=== PATIENT | male | born 1945 | race Caucasian/White ===

== ENCOUNTER → 2016-07-01 | Outpatient (CLI) | payer MEDICARE, MEDICAID ==
[2016-07-01 12:59] LABS: ANION GAP 13 (5-19); BLOOD UREA NITROGEN 24 mg/dL (7-20); CALCIUM 9.2 mg/dL (8.4-10.2); CARBON DIOXIDE 31 mmol/L (22-30); CHLORIDE 99 mmol/L (98-107); CREATININE RESULT 1.19 mg/dL (0.52-1.25); GLUCOSE 103 mg/dL (75-110); POTASSIUM 4.3 mmol/L (3.6-5.0); SODIUM 143.2 mmol/L (137-145)
== END ==
LOC: OD 11:36
PROVIDERS: ATTEND Internal Medicine Cardiovascular Disease
DX: I10 Essential (primary) hypertension (principal)
CPT/HCPCS: 36415; 80048; 84443

== ENCOUNTER 2016-08-09 21:22 | Inpatient (IN) | payer MEDICARE, MEDICAID ==
[2016-08-09] MEDS ORDERED: ASPIRIN 81 MG TABLET, CHEWABLE PO ONE (21:35)
[2016-08-09 21:49] LABS: ABSOLUTE EOSINOPHILS # (AUTO) 0.2 10^3/uL (0.0-0.6); ABSOLUTE LYMPHOCYTES (AUTO) 1.9 10^3/uL (0.5-4.7); ABSOLUTE MONOCYTES (AUTO) 0.9 10^3/uL (0.1-1.4); ABSOLUTE NEUT (AUTO) 4.7 10^3/uL (1.7-8.2); BASOPHILS % (AUTO) 0.6 % (0-2); EOSINOPHILS % (AUTO) 3.1 % (0-6); HEMATOCRIT 47.6 % (37.9-51.0); HEMOGLOBIN 15.6 g/dL (13.5-17.0); HGB HCT DIFFERENCE -0.8; LYMPHOCYTES % (AUTO) 24.3 % (13-45); MEAN CORPUSCULAR HEMOGLOBIN 30.5 pg (27.0-33.4); MEAN CORPUSCULAR HGB CONC 32.8 g/dL (32.0-36.0); MEAN CORPUSCULAR VOLUME 93 fl (80-97); MONOCYTES % (AUTO) 11.2 % (3-13); RED BLOOD COUNT 5.12 10^6/uL (4.35-5.55); RED CELL DISTRIBUTION WIDTH 15.2 % (11.5-14.0); SEGMENTED NEUTROPHILS % (AUTO) 60.8 % (42-78); WHITE BLOOD COUNT 7.7 10^3/uL (4.0-10.5)
[2016-08-09 22:02] LABS: ALANINE AMINOTRANSFERASE 18 U/L (21-72); ALBUMIN 3.9 g/dL (3.5-5.0); ALKALINE PHOSPHATASE 88 U/L (38-126); ANION GAP 11 (5-19); ASPARTATE AMINO TRANSFERASE 23 U/L (17-59); BLOOD UREA NITROGEN 22 mg/dL (7-20); CALCIUM 9.1 mg/dL (8.4-10.2); CARBON DIOXIDE 32 mmol/L (22-30); CHLORIDE 99 mmol/L (98-107); CREATINE KINASE 70 U/L (55-170); CREATININE RESULT 1.55 mg/dL (0.52-1.25); GLUCOSE 104 mg/dL (75-110); POTASSIUM 4.5 mmol/L (3.6-5.0); SODIUM 141.7 mmol/L (137-145); TOTAL PROTEIN 7.9 g/dL (6.3-8.2)
[2016-08-09 22:14] LABS: CREATINE KINASE MB 1.77 ng/mL (<4.55)
[2016-08-09 22:31] LABS: TROPONIN I 0.046 ng/mL
[2016-08-09] MEDS ORDERED: NORMAL SALINE 1000 ML 1,000 ML IV ONE (22:32)
--- NOTE | 2016-08-09 22:33 | ER Document Report ---
ED General - General Mode of Arrival: Medic Information source: Patient TRAVEL OUTSIDE OF THE [place] IN LAST 30 DAYS: No - HPI Onset: Other - see narrative Onset/Duration: Persistent Quality of pain: Achy Severity: None Associated symptoms: Other - see narrative Recently seen / treated by doctor: Yes <MARICHUY BROWN - Last Filed: 08/09/16 23:02> <RONALD SHAY - Last Filed: 08/10/16 06:26> - General Stated Complaint: LIGHT HEADED POSSIBLE Notes: Patient is a 70-year-old male that presents to the emergency department today with complaints of vomiting and abdominal pain with associated lightheadedness. Patient states that he was watching television when his symptoms began. Patient also adds that he has back pain secondary to a fall a few days ago. Patient states he is unsure if he hit his head during the fall but he now has a slight headache. Patient states he was recently started on antibiotics for a cough. Patient denies any diarrhea or fever. Patient is a poor historian so history is limited. (MARICHUY BROWN) - Related Data Allergies/Adverse Reactions: ibuprofen Adverse Reaction (Verified 03/19/15 20:28) Home Medications: Current Home Medications Amlodipine Besylate 5 mg PO DAILY 08/10/16 [History] Aspirin 81 mg PO DAILY 08/10/16 [History] Cefdinir 300 mg PO BID 08/10/16 [History] Furosemide [Lasix] 40 mg PO DAILY 08/10/16 [History] Isosorbide Mononitrate [Imdur 60 mg Tablet.er] 60 mg PO DAILY 08/10/16 [History] Lisinopril 20 mg PO DAILY 08/10/16 [History] Ondansetron [Zuplenz] 4 mg PO ASDIR PRN 08/10/16 [History] Ranolazine [Ranexa 500 mg Tab.sr] 500 mg PO BID 08/10/16 [History] Past Medical History - General Information source: Patient, [facility] Records - Social History Smoking Status: Former Smoker Cigarette use (# per day): No Frequency of alcohol use: None Drug Abuse: None Lives with: Family Family History: Reviewed & Not Pertinent - Past Medical History Cardiac Medical History: Reports: Hx Congestive Heart Failure, Hx Coronary Artery Disease, Hx Heart Attack, Hx Hypertension, Hx Pulmonary Embolism Pulmonary Medical History: Reports: Hx COPD Endocrine Medical History: Reports: Hx Diabetes Mellitus Type 2 Past Surgical History: Reports: Hx Cardiac Catheterization, Hx Cardiac Surgery - Pacemaker-removed due to infection, Hx Pacemaker - States he does not have a pacemaker but does have an AICD, Hx Tonsillectomy - Immunizations Hx Diphtheria, Pertussis, Tetanus Vaccination: No - >5 YRS Hx Pneumococcal Vaccination: 03/27/11 <MARICHUY BROWN - Last Filed: 08/09/16 23:02> Review of Systems - Review of Systems Constitutional: denies: Fever EENT: No symptoms reported Cardiovascular: See HPI, Lightheaded Respiratory: See HPI, Cough Gastrointestinal: See HPI, Abdominal pain, Vomiting. denies: Diarrhea Genitourinary: No symptoms reported Male Genitourinary: No symptoms reported Musculoskeletal: See HPI, Back pain Skin: No symptoms reported Hematologic/Lymphatic: No symptoms reported Neurological/Psychological: See HPI, Headaches -: Yes All other systems reviewed and negative <MARICHUY BROWN - Last Filed: 08/09/16 23:02> Physical Exam <MARICHUY BROWN - Last Filed: 08/09/16 23:02> <RONALD SHAY - Last Filed: 08/10/16 06:26> - Vital signs Vitals: Temp 97.8 F 08/09/16 21:26 - Notes Notes: Physical Exam: General: Alert, appears well. HEENT: Normocephalic. Atraumatic. PERRL. Extraocular movements intact. Oropharynx clear. Dry mucous membranes. Difficulty hearing at baseline. Neck: Supple. Non-tender. Respiratory: No respiratory distress. Wheezing bilaterally. Rales at the right base. Cardiovascular: Regular rate and rhythm. Abdominal: Obese. Non-tender. No distension. Normal Bowel Sounds. Back: Non-tender. No deformity or step off. Extremities: Moves all four extremities. Upper extremities: Normal inspection. Non-tender.Normal ROM. Lower extremities: Normal inspection. Non-tender. No edema. Normal ROM. Neurological: Normal cognition. AAOx4. Normal speech. Psychological: Normal affect. Normal Mood. Skin: Warm. Dry. Normal color. (MARICHUY BROWN) Course - Laboratory Result Diagrams: 08/09/16 21:32 08/09/16 21:32 <MARICHUY BROWN - Last Filed: 08/09/16 23:02> - Laboratory Result Diagrams: 08/10/16 05:48 08/09/16 21:32 - Diagnostic Test Radiology reviewed: Reports reviewed <RONALD SHAY - Last Filed: 08/10/16 06:26> - Re-evaluation Re-evalutation: 08/10/16 Patient is orthostatic. Patient with COPD exacerbation and hypoxia. Patient has a history of PE in cannot remember if he is on blood thinners. No acute findings on imaging associated with trauma. Patient will have VQ scan due to his renal insufficiency to look for pulmonary embolus. It is very likely that he has one and I'm not sure why he is not on blood thinners at this time unless he the fall risk. Discussed with hospitalist service in stable at time of admission. Of note, V/Q positive for PE. Patient will be started on blood thinners by the hospitalist service (RONALD SHAY) - Vital Signs Vital signs: Temp Pulse Resp BP Pulse Ox 97.7 F 56 L 16 119/76 97 08/10/16 05:03 08/10/16 05:03 08/10/16 05:03 08/10/16 05:03 08/10/16 05:03 - Laboratory Laboratory results interpreted by me: 08/09/16 08/09/16 21:32 21:32 RDW 15.2 H Carbon Dioxide 32 H BUN 22 H Creatinine 1.55 H Est GFR ( Amer) 54 L Est GFR (Non-Af Amer) 44 L ALT 18 L (MARICHUY BROWN) (RONALD SHAY) Critical Care Note - Critical Care Note Total time excluding time spent on procedures (mins): 35 - evaluation and management of hypoxia, multiple re-evaluations, coordination of admission <RONALD SHAY - Last Filed: 08/10/16 06:26> Discharge <MARICHUY BROWN - Last Filed: 08/09/16 23:02> - Discharge Admitting Provider: Hospitalist Unit Admitted: IMCU <RONALD SHAY - Last Filed: 08/10/16 06:26> - Discharge Clinical Impression: COPD exacerbation, Orthostatic hypotension, Atrial flutter by electrocardiogram Vomiting Qualifiers: Vomiting type: unspecified Vomiting Intractability: non-intractable Nausea presence: with nausea Qualified Code(s): R11.2 - Nausea with vomiting, unspecified Condition: Stable Disposition: ADMITTED INPATIENT Scribe Attestation: 08/10/16 06:25 I personally performed the services described in the documentation, reviewed and edited the documentation which was dictated to the scribe in my presence, and it accurately records my words and actions. (RONALD SHAY) Scribe Documentation - Scribe Written by Brendae:: Ge Willard, [id number] 08/10/16 acting as scribe for :: Silvina <MARICHUY BROWN - Last Filed: 08/09/16 23:02>
[2016-08-09] MEDS ORDERED: IPRATROPIUM/ALBUTEROL 0.5-2.5 MG/3 ML AMPUL NEB ONE (23:42)
[2016-08-09] MEDS ORDERED: ONDANSETRON HCL INJ/PF 4 MG/2 ML SDV IV ONE (23:43)
[2016-08-10] MEDS ORDERED: METHYLPREDNISOLONE INJ 125 MG/2 ML SDV IV ONE (00:14)
[2016-08-10] MEDS ORDERED: ACETAMINOPHEN 325 MG TABLET PO PRN (02:11)
[2016-08-10] MEDS ORDERED: IPRATROPIUM/ALBUTEROL 0.5-2.5 MG/3 ML AMPUL NEB PRN (02:11)
[2016-08-10] MEDS ORDERED: NORMAL SALINE 1000 ML 1,000 ML IV PRN ×2 (02:11→09:27)
--- NOTE | 2016-08-10 02:33 | PDOC H&P ---
History of Present Illness Admission Date/PCP: 08/10/16 00:46 MD [facility]. Patient complains of: n/v, lightheaded History of Present Illness: DANIEL OLIVA is a 70 year old morbidly obese male with underlying COPD, coronary artery disease, status post myocardial infarction 2, status post pacemaker implant with subsequent removal for infection, followed by AICD implant, arthritis, chronic pain, combined systolic and diastolic congestive heart failure by 2010 echocardiogram, and history of pulmonary embolism, having been taken off his anticoagulant approximate 1 month ago, as best I can determine, who presents to the emergency room for evaluation of above complaints. Of note, patient is a Rather rambling poor historian at times. He's had questionable chills but no fever per se. 2 episodes of nausea and vomiting. No diarrhea or dysuria, chest or abdominal pain. He's had a day or so of lightheadedness. States he's having some mild back discomfort secondary to a fall several days ago. Uncertain if he struck his head, but has been having an occasional slight headache recently. Was started on Cefdinir twice a day several days ago for cough, but has only been taking this once a day.. 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 Recent nuclear medicine stress test; results are pending. Patient has been discussed with emergency room physician who evaluated the patient. Laboratory results are listed in [facility] and are reviewed. X-ray summary results are listed below, with full report(s) reviewed. . EKG reviewed. And compared to a tracing from November 29 of last year. Social history/personal habits: . One son. Lives with son. On disability due to a number of health problems, including heart problems. Occasional beer. No tobacco or illicit drug use. Allergies/adverse reactions are listed in [employer] and are reviewed. Home medications are reviewed by bottle review and discussion with patient and are to be reconciled by nursing staff in [facility]. Home medications initially autopopulated into [facility] may not accurately reflect patient's true medications, dosages, and/or frequencies. REVIEW OF SYSTEMS: Constitutional: See history and present illness. Eyes: Wears glasses. ENT: No swallowing problems or complaints. Partial hearing loss. Pulmonary: See history and present illness. Cardiovascular: No current complaints, including chest pain. Gastrointestinal: See history and present illness. Skin: No current complaints, including rashes. Hematologic: No unusual easy bruising or bleeding. Neurologic: No current complaints, including numbness or tingling. Musculoskeletal: Joint pain from arthritis. See history and present illness. Psychiatric: No current complaints, including anxiety or depression. Endocrine: No current complaints, including polyuria. Genitourinary: No current complaints, including dysuria. PHYSICAL EXAMINATION: Neither height nor weight are recorded on the chart. Temperature 97.8. Blood pressure 126/79. Pulse 59 and regular. Respirations are 16 and unlabored. 100 % saturation on 2 L oxygen per nasal cannula. Morbidly obese otherwise well-developed male appearing perhaps a bit younger than his stated age. Pleasant awake alert and cooperative. Somewhat anxious, although no ayan agitation. Skin is warm and dry. No grossly obvious evidence of rash in areas of skin examined. No subcutaneous nodules palpated. ENT: Mildly hard of hearing to normal conversation. Tongue midline on protrusion pink and slightly moist. Eyes: No scleral icterus. Pupils equal and reactive to light at 4 mm. [place] conjunctivae. No raccoon eyes. Neck is supple and nontender to gentle active range of motion and palpation. Midline trachea. No palpable thyroid nodule mass enlargement or tenderness. Lymphatic: No palpable cervical or clavicular nodes. Neck and lymphatic exams limited by patient body habitus. Psychiatric: Fair to reasonable insight into acute and chronic medical issues. Oriented to time location and why here. As noted above, somewhat of a poor historian times. Lungs: Auscultation reveals clear and equal breath sounds bilaterally. No use of accessory respiratory muscles. Cardiovascular: Heart regular rate and rhythm, without gallop murmur or rub. No carotid or abdominal aortic bruits. No ankle or pedal edema. Faintly palpable dorsalis pedis pulses. Abdomen: soft, obese, nontender with positive bowel sounds. Unable to adequately evaluate abdomen for masses or organomegaly due to body habitus. Extremities: Feet are warm and dry. No calf tenderness to compression. No grossly obvious visual evidence of calf swelling. Gentle manipulation of lower extremities fails to reveal any obvious evidence of injury or instability to knees hips or ankles. Neurologic: Moves upper extremities grossly normally. Patellar reflexes absent. Absent Babinski. Light touch is intact at feet. Dorsiflexion and plantarflexion of feet 5 / 5 and symmetric. Past Medical History Cardiac Medical History: Reports: Congestive Heart Failure, Coronary Artery Disease, Myocardial Infarction, Hypertension, Pulmonary Embolism Denies: Hyperlipidema Pulmonary Medical History: Reports: Chronic Obstructive Pulmonary Disease (COPD) Denies: Sleep Apnea EENT Medical History: Reports: Eyes - Glasses, Ears - Partial hearing loss Denies: Throat Neurological Medical History: Denies: Hemorrhagic CVA, Ischemic CVA, Seizures Endocrine Medical History: Reports: Diabetes Mellitus Type 2 - History of same, but only on medication for short time. Denies: Diabetes Mellitus Type 1, Hyperthyroidism, Hypothyroidism Renal/ Medical History: Reports: None GI Medical History: Denies: Cirrhosis, Gastroesophageal Reflux Disease, Hepatitis, Peptic Ulcer Disease Musculoskeltal Medical History: Reports: Arthritis Skin Medical History: Reports: None Denies: Eczema, Psoriasis Psychiatric Medical History: Denies: Alcohol Dependency, Depression, General Anxiety Disorder, Substance Abuse, Tobacco Dependency Hematology: Reports: None Infectious Medical History: Denies: Hepatitis B, Hepatitis C Past Surgical History Past Surgical History: Reports: Cardiac Catheterization, Pacemaker - Initial device removed for infection; subsequent AICD implant., Tonsillectomy Social History Information Source: Patient, Emergency Med Personnel, [facility] Records Lives with: Family Smoking Status: Former Smoker Frequency of Alcohol Use: Occasional Hx Recreational Drug Use: No Hx Prescription Drug Abuse: No - Advance Directive Resuscitation Status: Full Code Surrogate healthcare decision maker:: Son Family History Family History: Reviewed & Not Pertinent Parental Family History Reviewed: Yes Children Family History Reviewed: Yes Sibling(s) Family History Reviewed.: Yes Medication/Allergy Home Medications: RX: Aspirin [Ecotrin 81 mg EC Tablet] 81 mg PO DAILY 08/10/16 RX: Furosemide [Lasix] 40 mg PO QAM 08/10/16 RX: Isosorbide Mononitrate [Imdur 60 mg Tablet.er] 60 mg PO DAILY 08/10/16 RX: Lisinopril 20 mg PO DAILY 08/10/16 RX: Ondansetron HCl [Zofran 4 mg Tablet] 4 mg PO Q6HP PRN 08/10/16 RX: Ranolazine [Ranexa] 500 mg PO BID 08/10/16 RX: Morphine Sulfate [Morphine Ir 30 mg Tablet] 60 mg PO Q6HP PRN 08/11/16 RX: Apixaban [Eliquis 5 mg Tablet] 5 mg PO BID #60 tablet 08/12/16 RX: Docusate Sodium [Colace 100 mg Capsule] 100 mg PO BID #60 capsule 08/12/16 Allergies/Adverse Reactions: ibuprofen Adverse Reaction (Verified 08/10/16 10:17) Physical Exam Vital Signs: Temp Pulse Resp BP Pulse Ox 97.8 F 11 L 126/74 H 96 08/09/16 21:26 08/10/16 00:11 08/10/16 00:31 08/10/16 00:31 Results Impressions: Chest X-Ray 08/09/16 21:35 IMPRESSION: HEART ENLARGED WITHOUT FAILURE. CHRONIC INTERSTITIAL CHANGES. NO DEFINITE ACUTE FINDINGS. Chest CT 08/09/16 22:33 IMPRESSION: RIGHT PLEURAL EFFUSION. SIMILAR TO THE PRIOR STUDY. CARDIOMEGALY. NO ACUTE FINDINGS. Head CT 08/09/16 22:33 IMPRESSION: CHRONIC CHANGES OF ATROPHY AND MICROVASCULAR ISCHEMIA. NO ACUTE PROCESS. Assessment & Plan - Diagnosis (1) ARF (acute renal failure) Qualifiers: Acute renal failure type: unspecified Qualified Code(s): N17.9 - Acute kidney failure, unspecified Is this a current diagnosis for this admission?: YesPlan: Likely prerenal, due to nausea and vomiting. Judicious IV fluids, with history of combined systolic and diastolic heart failure. Follow-up chemistry.. (2) Anticoagulated Is this a current diagnosis for this admission?: YesPlan: Poor historian. However, states that his new blocklayer approximately one month ago stopped his anticoagulation, as best I can determine from discussion with patient. Patient does not remember the name of his new blocklayer. (3) Cough Is this a current diagnosis for this admission?: YesPlan: Follow clinically at this time. Suspicion for COPD exacerbation is low. (4) Fall Qualifiers: Encounter type: initial encounter Qualified Code(s): W19.XXXA - Unspecified fall, initial encounter Is this a current diagnosis for this admission?: YesPlan: Physical therapy consult. Orthostatic vital signs every 4 hours while awake. I have strongly encouraged patient not to get out of bed without notifying staff , to avoid a fall with injury. Knee high SCDs for DVT prophylaxis, along with subcutaneous heparin. Impression and plans were discussed with patient, who concurs. Time spent in evaluation and management of patient: 65 minutes. (5) Lightheaded Is this a current diagnosis for this admission?: Yes (6) Nausea & vomiting Qualifiers: Vomiting type: unspecified Vomiting Intractability: non-intractable Qualified Code(s): R11.2 - Nausea with vomiting, unspecified Is this a current diagnosis for this admission?: YesPlan: Likely viral etiology. Clear liquid diet at present. Follow clinically. (7) Orthostatic hypotension Is this a current diagnosis for this admission?: Yes (8) AICD present, double chamber Is this a current diagnosis for this admission?: Yes (9) Combined systolic and diastolic cardiac dysfunction Is this a current diagnosis for this admission?: YesPlan: Clinically stable at present time.Resume home medications as appropriate once these have been reviewed. (10) History of pulmonary embolism Is this a current diagnosis for this admission?: YesPlan: With orthostatic hypotension, lightheadedness, personal history of pulmonary embolism, and with systemic anticoagulation having recently been discontinued, ventilation perfusion lung scan has been ordered.
[2016-08-10] MEDS ORDERED: METHYLPREDNISOLONE INJ 125 MG/2 ML SDV ONE (03:26)
[2016-08-10 04:12] LABS: ADD ON TESTING BLD IN LAB ACKNOWLEDGE
[2016-08-10 04:28] LABS: MAGNESIUM 1.9 mg/dL (1.6-2.3)
[2016-08-10] MEDS ORDERED: INFLUENZA ADLT QUAD (36MOS+) 2016-17 VAC 0.5 ML SYR IM PRN (05:28)
[2016-08-10] MEDS ORDERED: HEPARIN SODIUM,PORCINE/D5W 250 ML IV PRN (05:48)
[2016-08-10] MEDS ORDERED: HEPARIN SOD (PORCINE) 1,000 UNIT/ML 10 ML VIAL IV ONE (05:48)
[2016-08-10] MEDS ORDERED: HEPARIN SOD (PORCINE) 1,000 UNIT/ML 10 ML VIAL IV PRN (05:48)
[2016-08-10] MEDS ORDERED: HEPARIN SOD (PORCINE) 5,000 UNIT/ML 1 ML SYRINGE SUBCUT SCH (06:00)
[2016-08-10 06:12] LABS: ABSOLUTE BASOPHILS # (AUTO) 0.1 10^3/uL (0.0-0.2); ABSOLUTE EOSINOPHILS # (AUTO) 0.1 10^3/uL (0.0-0.6); ABSOLUTE LYMPHOCYTES (AUTO) 0.7 10^3/uL (0.5-4.7); ABSOLUTE MONOCYTES (AUTO) 0.2 10^3/uL (0.1-1.4); ABSOLUTE NEUT (AUTO) 5.6 10^3/uL (1.7-8.2); BASOPHILS % (AUTO) 0.8 % (0-2); EOSINOPHILS % (AUTO) 1.2 % (0-6); HEMATOCRIT 46.1 % (37.9-51.0); HEMOGLOBIN 15.1 g/dL (13.5-17.0); HGB HCT DIFFERENCE -0.8; LYMPHOCYTES % (AUTO) 10.8 % (13-45); MEAN CORPUSCULAR HEMOGLOBIN 30.6 pg (27.0-33.4); MEAN CORPUSCULAR HGB CONC 32.7 g/dL (32.0-36.0); MEAN CORPUSCULAR VOLUME 94 fl (80-97); MONOCYTES % (AUTO) 3.6 % (3-13); RED BLOOD COUNT 4.93 10^6/uL (4.35-5.55); RED CELL DISTRIBUTION WIDTH 15.3 % (11.5-14.0); SEGMENTED NEUTROPHILS % (AUTO) 83.6 % (42-78); WHITE BLOOD COUNT 6.7 10^3/uL (4.0-10.5)
[2016-08-10] MEDS ORDERED: HEPARIN SOD (PORCINE) 1,000 UNIT/ML 10 ML VIAL ONE (06:15)
[2016-08-10 06:27] LABS: ANION GAP 9 (5-19); BLOOD UREA NITROGEN 25 mg/dL (7-20); CALCIUM 8.7 mg/dL (8.4-10.2); CARBON DIOXIDE 28 mmol/L (22-30); CHLORIDE 102 mmol/L (98-107); CREATININE RESULT 1.45 mg/dL (0.52-1.25); GLUCOSE 147 mg/dL (75-110); POTASSIUM 4.7 mmol/L (3.6-5.0); SODIUM 139.3 mmol/L (137-145)
[2016-08-10] MEDS ORDERED: HEPARIN SODIUM,PORCINE/D5W 25,000 UNIT/250 ML RTUINJ IV ONE ×2 (06:33→20:23)
[2016-08-10] MEDS: DOCUSATE SODIUM 100 MG CAPSULE PO SCH ×2 (09:18→17:42)
[2016-08-10 09:33] LABS: APPEARANCE,URINE SLIGHTLY-CLOUDY; BILIRUBIN,URINE NEGATIVE (NEGATIVE); GLUCOSE, URINE NEGATIVE (NEGATIVE); KETONES,URINE NEGATIVE (NEGATIVE); LEUKOCYTE ESTERASE,URINE NEGATIVE (NEGATIVE); NITRITE,URINE NEGATIVE (NEGATIVE); PROTEIN,URINE 100 mg/dL (NEGATIVE); URINE SPECIFIC GRAVITY 1.018; UROBILINOGEN,URINE NEGATIVE mg/dL (<2.0)
--- NOTE | 2016-08-10 10:14 | Progress Note ---
Provider Note Provider Note: 08/10/2016: High probability ventilation perfusion lung scan. Discussed with interpreting radiologist. Will proceed with systemic anticoagulation, heparin drip in this morbidly obese individual. Systemic anticoagulation recommended to patient. Patient understands the risks of systemic anti-coagulation to include but not be limited to internal bleeding , which can take the form of GI tract and/or intracranial hemorrhage, the latter of which can result in or stroke with permanent paralysis. Patient has no absolute contraindication to systemic anticoagulation. No bleeding problems when previously on systemic anticoagulation. Above discussed in lay person's terms. Patient agrees to undergo systemic anticoagulation.
--- NOTE | 2016-08-10 23:48 | EKG REPORT ---
SEVERITY:- ABNORMAL ECG - ATRIAL FLUTTER, A-RATE 230 VENTRICULAR PREMATURE COMPLEX NONSPECIFIC IVCD WITH LAD ANTERIOR INFARCT, OLD : Confirmed by: Farzana Still 10-Aug-2016 23:48:01
[2016-08-11 04:11] LABS: HEMATOCRIT 42.2 % (37.9-51.0); HEMOGLOBIN 13.9 g/dL (13.5-17.0); HGB HCT DIFFERENCE -0.5; MEAN CORPUSCULAR HEMOGLOBIN 30.7 pg (27.0-33.4); MEAN CORPUSCULAR HGB CONC 32.8 g/dL (32.0-36.0); MEAN CORPUSCULAR VOLUME 93 fl (80-97); RED BLOOD COUNT 4.52 10^6/uL (4.35-5.55); RED CELL DISTRIBUTION WIDTH 15.3 % (11.5-14.0); WHITE BLOOD COUNT 8.3 10^3/uL (4.0-10.5)
[2016-08-11] MEDS: DOCUSATE SODIUM 100 MG CAPSULE PO SCH ×2 (09:57→18:22)
[2016-08-11] MEDS ORDERED: AMLODIPINE BESYLATE 5 MG TABLET PO SCH (10:00)
[2016-08-11] MEDS ORDERED: ASPIRIN 81 MG TABLET, CHEWABLE PO SCH (10:00)
[2016-08-11] MEDS ORDERED: CLOPIDOGREL BISULFATE 75 MG TABLET PO ONE (10:15)
[2016-08-11] MEDS ORDERED: INSULIN REG, HUMAN 100 UNIT/ML 3 ML VIAL (PYX) SUBCUT PRN (12:28)
[2016-08-11] MEDS ORDERED: GLUCAGON,HUMAN RECOMB 1 MG INJ IM PRN (12:28)
[2016-08-11] MEDS ORDERED: DEXTROSE 50%-WATER SYRINGE 12.5 GM/25 ML DOSE IV PRN (12:28)
[2016-08-11] MEDS ORDERED: DEXTROSE 40% GEL 15 GM TUBE X 2 PO PRN (12:28)
[2016-08-11] MEDS ORDERED: DEXTROSE 50%-WATER SYRINGE 25 GM/50 ML DOSE IV PRN (12:28)
[2016-08-11] MEDS ORDERED: DEXTROSE 40% GEL 15 GM TUBE PO PRN (12:28)
[2016-08-11] MEDS ORDERED: APIXABAN 5 MG TABLET PO ONE (12:45)
--- NOTE | 2016-08-11 13:12 | PDOC PROGRESS REPORT ---
Subjective Progress Note for:: 08/11/16 Subjective:: The patient denies any chest pain, paroxysmal nocturnal dyspnea, nor orthopnea. Patient was admitted for nausea and vomiting but eventually this resolved by itself. Urine culture still turning out to be negative. KUB shows no obstruction. Patient was admitted because of high probability VQ scan and started on heparin drip. CT scan showed no pulmonary embolism. Patient however diastolic EKG showed atrial flutter. No dizziness or lightheadedness. Patient reports chronic respiratory failure, given oxygen in [place] and for some reason it was discontinued here. Reported episode of bradycardia and 30's last night. Physical Exam Vital Signs: Temp Pulse Resp BP Pulse Ox 97.7 F 80 14 130/67 H 95 08/11/16 07:08 08/11/16 08:47 08/11/16 08:47 08/11/16 07:08 08/11/16 08:47 Intake & Output 08/10/16 08/11/16 08/12/16 06:59 06:59 06:59 Intake Total 225 5432 Output Total 700 Balance 225 4732 Weight 136 kg 139.7 kg General appearance: PRESENT: no acute distress, cooperative, morbidly obese Head exam: PRESENT: normocephalic Eye exam: PRESENT: EOMI Mouth exam: PRESENT: moist, neck supple Neck exam: ABSENT: JVD Respiratory exam: PRESENT: decreased breath sounds. ABSENT: rhonchi, wheezes Cardiovascular exam: PRESENT: RRR, other - campus monitor, a flutter with controlled rate. ABSENT: gallop GI/Abdominal exam: PRESENT: distended - Obese, hypoactive bowel sounds, soft. ABSENT: tenderness Extremities exam: PRESENT: +1 edema Neurological exam: PRESENT: alert, awake, oriented to situation Skin exam: PRESENT: dry, warm. ABSENT: cyanosis Results Laboratory Results: 08/11/16 03:35 08/10/16 05:48 08/11/16 03:35 WBC 8.3 RBC 4.52 Hgb 13.9 Hct 42.2 MCV 93 MCH 30.7 MCHC 32.8 RDW 15.3 H Plt Count 169 Impressions: Chest X-Ray 08/09/16 21:35 IMPRESSION: HEART ENLARGED WITHOUT FAILURE. CHRONIC INTERSTITIAL CHANGES. NO DEFINITE ACUTE FINDINGS. Chest CT 08/09/16 22:33 IMPRESSION: RIGHT PLEURAL EFFUSION. SIMILAR TO THE PRIOR STUDY. CARDIOMEGALY. NO ACUTE FINDINGS. Head CT 08/09/16 22:33 IMPRESSION: CHRONIC CHANGES OF ATROPHY AND MICROVASCULAR ISCHEMIA. NO ACUTE PROCESS. Chest/Abdomen CTA 08/10/16 00:00 IMPRESSION: 1. No PE. 2. Cardiomegaly. Chronic small right pleural effusion. KUB X-Ray 08/10/16 00:00 IMPRESSION: NO RADIOGRAPHIC EVIDENCE FOR ACUTE ABDOMINAL DISEASE. Lung Scan-VQ NM 08/10/16 00:19 IMPRESSION: High probability for pulmonary emboli. Further evaluation with dedicated CT angiogram chest recommended. Assessment & Plan - Diagnosis (1) Abnormal perfusion scan of lung Is this a current diagnosis for this admission?: Yes (2) Atrial flutter by electrocardiogram Is this a current diagnosis for this admission?: Yes (3) ARF (acute renal failure) Qualifiers: Acute renal failure type: unspecified Qualified Code(s): N17.9 - Acute kidney failure, unspecified Is this a current diagnosis for this admission?: Yes (4) Pleural effusion Is this a current diagnosis for this admission?: Yes (5) Cardiomyopathy Qualifiers: Cardiomyopathy type: ischemic Qualified Code(s): I25.5 - Ischemic cardiomyopathy Is this a current diagnosis for this admission?: Yes (6) COPD (chronic obstructive pulmonary disease) Qualifiers: COPD type: unspecified COPD Qualified Code(s): J44.9 - Chronic obstructive pulmonary disease, unspecified Is this a current diagnosis for this admission?: Yes (7) Obesity hypoventilation syndrome Is this a current diagnosis for this admission?: Yes (8) Diabetes mellitus Qualifiers: Diabetes mellitus type: type 2 Diabetes mellitus complication status: with unspecified complications Diabetes mellitus keno terminal operator insulin use: without keno terminal operator use Qualified Code(s): E11.8 - Type 2 diabetes mellitus with unspecified complications Is this a current diagnosis for this admission?: Yes (9) Hypertension Qualifiers: Hypertension type: essential hypertension Qualified Code(s): I10 - Essential (primary) hypertension Is this a current diagnosis for this admission?: Yes (10) History of pulmonary embolism Is this a current diagnosis for this admission?: Yes - Time Time Spent with patient: 25-34 minutes - Plan Summary Plan Summary: We will continue gentle hydration. Recheck creatinine in the morning. We will discontinue the patient's heparin drip. I will put the patient on eliquis for the atrial flutter. This was briefly discussed with cardiology, Dr. Henao. In the meantime I will put the patient on sliding scale insulin. We will obtain room air oxygenation on ambulation and at rest and subsequently arrangements for home oxygen if needed. I will discontinue the Norvasc due to bradycardia. I will resume the patient's KELSEY inhibitor but half the dose. I would resume the Ranexa as well, and Imdur at half the dose. We will monitor blood pressure. If the patient continues to improve any stable, possibly can be discharged in the morning.
[2016-08-11] MEDS ORDERED: LISINOPRIL 10 MG TABLET PO ONE (15:00)
[2016-08-11] MEDS ORDERED: ISOSORBIDE MONONITRATE 60 MG TAB.ER.24H PO ONE (15:00)
[2016-08-11] MEDS ORDERED: MORPHINE SULFATE IR 30 MG TABLET PO PRN (16:56)
[2016-08-11] MEDS: RANOLAZINE 500 MG TAB.SR.12H PO SCH (18:19)
[2016-08-11] MEDS: APIXABAN 5 MG TABLET PO SCH (18:21)
[2016-08-12 03:27] LABS: APPEARANCE,URINE CLEAR; BILIRUBIN,URINE NEGATIVE (NEGATIVE); GLUCOSE, URINE NEGATIVE (NEGATIVE); KETONES,URINE NEGATIVE (NEGATIVE); LEUKOCYTE ESTERASE,URINE NEGATIVE (NEGATIVE); NITRITE,URINE NEGATIVE (NEGATIVE); PROTEIN,URINE NEGATIVE (NEGATIVE); URINE SPECIFIC GRAVITY 1.004; UROBILINOGEN,URINE NEGATIVE mg/dL (<2.0)
[2016-08-12 05:37] LABS: ANION GAP 7 (5-19); BLOOD UREA NITROGEN 29 mg/dL (7-20); CALCIUM 8.5 mg/dL (8.4-10.2); CARBON DIOXIDE 29 mmol/L (22-30); CHLORIDE 101 mmol/L (98-107); CREATININE RESULT 1.26 mg/dL (0.52-1.25); GLUCOSE 84 mg/dL (75-110); SODIUM 137.1 mmol/L (137-145)
[2016-08-12] MEDS: APIXABAN 5 MG TABLET PO SCH (09:07)
[2016-08-12] MEDS ORDERED: MORPHINE SULFATE IR 30 MG TABLET PO PRN (09:16)
[2016-08-12] MEDS: DOCUSATE SODIUM 100 MG CAPSULE PO SCH (09:18)
[2016-08-12 09:21] VITALS: BP 145/74
[2016-08-12] MEDS: RANOLAZINE 500 MG TAB.SR.12H PO SCH (09:21)
[2016-08-12] MEDS ORDERED: ISOSORBIDE MONONITRATE 60 MG TAB.ER.24H PO SCH (10:00)
[2016-08-12] MEDS ORDERED: CLOPIDOGREL BISULFATE 75 MG TABLET PO SCH (10:00)
[2016-08-12] MEDS ORDERED: (PENDING PHARMACY ID) (Lisinopril [Lisinopril] 10 MG) PO SCH (10:00)
[2016-08-12] MEDS ORDERED: LISINOPRIL 10 MG TABLET PO SCH (10:00)
--- NOTE | 2016-08-13 20:21 | PDOC DISCHARGE SUMMARY ---
General - Admit/Disc Date/PCP Admission Date/Primary Care Provider: 08/10/16 02:11 RANJITH TALAVERA MD Discharge Date: 08/12/16 - Discharge Diagnosis (1) ARF (acute renal failure) Is this a current diagnosis for this admission?: Yes (2) Acute on chronic combined systolic and diastolic heart failure Is this a current diagnosis for this admission?: Yes (3) Bradycardia Is this a current diagnosis for this admission?: Yes (4) CAD (coronary artery disease) Is this a current diagnosis for this admission?: Yes (5) Atrial flutter by electrocardiogram Is this a current diagnosis for this admission?: Yes (6) COPD (chronic obstructive pulmonary disease) Is this a current diagnosis for this admission?: Yes (7) Diabetes mellitus Is this a current diagnosis for this admission?: Yes (8) Obesity hypoventilation syndrome Is this a current diagnosis for this admission?: Yes (9) AICD present, double chamber Is this a current diagnosis for this admission?: Yes (10) History of pulmonary embolism Is this a current diagnosis for this admission?: Yes (11) Morbid obesity with BMI of 40.0-44.9, adult Is this a current diagnosis for this admission?: Yes - Additional Information Resuscitation Status: Full Code Discharge Diet: Cardiac, Diabetic Discharge Activity: Activity As Tolerated, Walk Frequently, Weigh Daily Home Medications: Aspirin [Ecotrin 81 mg EC Tablet] 81 mg PO DAILY 08/10/16 Furosemide [Lasix] 40 mg PO QAM 08/10/16 Isosorbide Mononitrate [Imdur 60 mg Tablet.er] 60 mg PO DAILY 08/10/16 Lisinopril 20 mg PO DAILY 08/10/16 Ondansetron HCl [Zofran 4 mg Tablet] 4 mg PO Q6HP PRN 08/10/16 Ranolazine [Ranexa] 500 mg PO BID 08/10/16 Morphine Sulfate [Morphine Ir 30 mg Tablet] 60 mg PO Q6HP PRN 08/11/16 Apixaban [Eliquis 5 mg Tablet] 5 mg PO BID #60 tablet 08/12/16 Docusate Sodium [Colace 100 mg Capsule] 100 mg PO BID #60 capsule 08/12/16 History of Present Illness History of Present Illness: see H&P for full history of present illness Hospital Course Hospital Course: Patient was initially admitted for nausea vomiting which was secondary to some mild acute renal failure which quickly resolved with hydration. Patient was also found to have an abnormal VQ scan which was a cause for admission and subsequent CT of the chest which was negative for pulmonary embolus patient was admitted and placed on heparin drip which was quickly stopped. Patient was transitioned to Eliquis as patient has history of a flutter/fib. Patient does have an AICD pacemaker in place. Patient was suffering from some chronic respiratory failure and had reported that he previously been prescribed oxygen in [place] but it had not been continued here. Patient was qualified for home oxygen and this was given to patient and he was discharged in stable condition. Physical Exam Vital Signs: Temp Pulse Resp BP Pulse Ox 97.9 F 114 H 18 145/74 H 95 08/12/16 07:48 08/12/16 07:48 08/12/16 07:48 08/12/16 07:48 08/12/16 07:48 Intake & Output 08/11/16 08/12/16 08/13/16 06:59 06:59 06:59 Intake Total 5432 4204 Output Total 700 1800 Balance 4732 2404 Weight 139.7 kg 139.7 kg Exam: General: Awake alert and oriented x3, no acute respiratory distress HEENT: AT/NC, PERRL, EOMI, oropharynx is moist, pink, no scleral icterus, no conjunctival injection Neck: No JVD, trachea midline Chest: Clear to auscultation bilaterally, no wheezes rhonchi or rales CV: normal S1 and S2 Abdomen: Soft, nontender to palpation, nondistended, active bowel sounds; no rebound, rigidity, or guarding Extremities: No cyanosis; 1+edema Neuro: Cranial nerves II through XII are grossly intact without focal deficits; awake alert and oriented x3 Psych: Normal mood and affect Results Laboratory Results: 08/11/16 03:35 08/12/16 04:20 08/12/16 08/12/16 03:00 04:20 Sodium 137.1 Potassium 5.0 Chloride 101 Carbon Dioxide 29 Anion Gap 7 BUN 29 H Creatinine 1.26 H Est GFR ( Amer) > 60 Est GFR (Non-Af Amer) 56 L Glucose 84 Calcium 8.5 Urine Color STRAW Urine Appearance CLEAR Urine pH 6.0 Ur Specific [place] 1.004 Urine Protein NEGATIVE Urine Glucose (UA) NEGATIVE Urine Ketones NEGATIVE Urine Blood NEGATIVE Urine Nitrite NEGATIVE Ur Leukocyte Esterase NEGATIVE Urine WBC (Auto) 1 08/10/16 09:00 Clean Catch Midstream Urine Culture - Final NO GROWTH 2 DAYS Impressions: Chest X-Ray 08/09/16 21:35 IMPRESSION: HEART ENLARGED WITHOUT FAILURE. CHRONIC INTERSTITIAL CHANGES. NO DEFINITE ACUTE FINDINGS. Chest CT 08/09/16 22:33 IMPRESSION: RIGHT PLEURAL EFFUSION. SIMILAR TO THE PRIOR STUDY. CARDIOMEGALY. NO ACUTE FINDINGS. Head CT 08/09/16 22:33 IMPRESSION: CHRONIC CHANGES OF ATROPHY AND MICROVASCULAR ISCHEMIA. NO ACUTE PROCESS. Chest/Abdomen CTA 08/10/16 00:00 IMPRESSION: 1. No PE. 2. Cardiomegaly. Chronic small right pleural effusion. KUB X-Ray 08/10/16 00:00 IMPRESSION: NO RADIOGRAPHIC EVIDENCE FOR ACUTE ABDOMINAL DISEASE. Lung Scan-VQ NM 08/10/16 00:19 IMPRESSION: High probability for pulmonary emboli. Further evaluation with dedicated CT angiogram chest recommended. Qualifiers PATEINT BEING DISCHARGED WITH ANY OF THE FOLLOWING DIAGNOSIS?: No Plan Time Spent: Greater than 30 Minutes
== END 2016-08-12 14:28 | disposition home or self-care (01) | DRG 682 ==
LOC: ER 21:22 → UNDOADMOB 08-10 00:46 → INTOOBSV 08-10 00:46 → EH 08-10 00:46 → OBSVTOIN 08-10 02:11 → EH 08-10 02:11 → 3N 08-10 04:13
PROVIDERS: ADMIT Family Medicine; ATTEND Family Medicine
PROC: 3E0234Z Introduction of Serum, Toxoid and Vaccine into Muscle, Percutaneous Approach (ICD-10-PCS; principal; 2016-08-12)
DX: N17.9 Acute kidney failure, unspecified (principal); I50.43 Acute on chronic combined systolic (congestive) and diastolic (congestive) heart failure; I48.92 Unspecified atrial flutter; Z68.41 Body mass index [BMI] 40.0-44.9, adult; E66.2 Morbid (severe) obesity with alveolar hypoventilation; J96.10 Chronic respiratory failure, unspecified whether with hypoxia or hypercapnia; I95.1 Orthostatic hypotension; I25.10 Atherosclerotic heart disease of native coronary artery without angina pectoris; J44.9 Chronic obstructive pulmonary disease, unspecified; I10 Essential (primary) hypertension; E11.9 Type 2 diabetes mellitus without complications; I25.2 Old myocardial infarction; Z23 Encounter for immunization; Z87.891 Personal history of nicotine dependence; Z86.711 Personal history of pulmonary embolism; Z95.810 Presence of automatic (implantable) cardiac defibrillator
CPT/HCPCS: 36415; 70450; 71010; 71250; 71275; 74000; 78582; 80048; 80053; 81001; 82550; 82553; 82962; 83735; 84484; 85025; 85027; 85610; 85730; 87086; 90686; 93005; 93010; 94640; 94799; 96361; 96374; 99291; A9540; A9567; G8978-GP; G8979-GP; J1644; J1815; J2405; J2930; J3490; J7030; J7620; Q9969

== ENCOUNTER → 2016-08-26 | Outpatient (CLI) | payer MEDICARE, MEDICAID | LOC: OD 14:32 | PROVIDERS: ATTEND Family Medicine | DX: M54.5 Low back pain (principal); M51.34 Other intervertebral disc degeneration, thoracic region | CPT/HCPCS: 72070 ==

== ENCOUNTER 2016-10-09 20:41 | Emergency (ER) | payer MEDICARE, MEDICAID ==
--- NOTE | 2016-10-10 00:25 | ER Document Report ---
ED Neck/Back Problem - General Chief Complaint: Back Pain Stated Complaint: BACK PAIN Mode of Arrival: Ambulatory Information source: Patient TRAVEL OUTSIDE OF THE [place] IN LAST 30 DAYS: No - HPI Patient complains to provider of: Pain Notes: Patient's here with complaints of right posterior chest wall pain. The patient states approximately 2 weeks ago he was walking to see his doctor when he fell and hit his upper back on the ground. He's had pain in the right posterior rib area since this occurred. The pain is worse when he takes a deep breath, coughs N, moves. He denies any blood thinners. He denies any hemoptysis. He denies any difficulty breathing or shortness of breath aside from his normal shortness of breath due to his COPD. He is on home oxygen at this point. He denies any bowel or bladder dysfunction. No abdominal pain. No unilateral numbness tingling or weakness. He has no other complaints at this time. - Related Data Allergies/Adverse Reactions: No Known Allergies Allergy (Unverified 10/09/16 20:47) Past Medical History - Social History Smoking Status: Unknown if Ever Smoked Family History: Reviewed & Not Pertinent Patient has suicidal ideation: No Patient has homicidal ideation: No - Past Medical History Cardiac Medical History: Reports: Hx Congestive Heart Failure, Hx Coronary Artery Disease, Hx Heart Attack, Hx Hypertension, Hx Pulmonary Embolism Denies: Hx Hypercholesterolemia Pulmonary Medical History: Reports: Hx COPD Denies: Hx Sleep Apnea Neurological Medical History: Denies: Hx Seizures Endocrine Medical History: Reports: Hx Diabetes Mellitus Type 2 - History of same, but only on medication for short time.. Denies: Hx Diabetes Mellitus Type 1, Hx Hyperthyroidism, Hx Hypothyroidism Renal/ Medical History: Denies: Hx Peritoneal Dialysis GI Medical History: Denies: Hx Cirrhosis, Hx Gastroesophageal Reflux Disease, Hx Hepatitis Musculoskeltal Medical History: Reports Hx Arthritis Skin Medical History: Denies Hx Eczema, Denies Hx Psoriasis Psychiatric Medical History: Denies: Hx Depression Infectious Medical History: Denies: Hx Hepatitis Past Surgical History: Reports: Hx Cardiac Catheterization, Hx Cardiac Surgery - Pacemaker-removed due to infection, Hx Pacemaker - Initial device removed for infection; subsequent AICD implant., Hx Tonsillectomy - Immunizations Hx Diphtheria, Pertussis, Tetanus Vaccination: No - >5 YRS Hx Pneumococcal Vaccination: 03/27/11 Review of Systems - Review of Systems -: Yes All other systems reviewed and negative Physical Exam - Vital signs Vitals: Temp Pulse Resp BP Pulse Ox 97.5 F 56 L 20 131/60 H 90 L 10/09/16 20:47 10/09/16 20:47 10/09/16 20:47 10/09/16 20:47 10/09/16 20:47 - Notes Notes: GENERAL: alert, cooperative, nontoxic, no distress. HEAD: normocephalic, atraumatic EYES: conjunctiva pink without discharge, no external redness or swelling. EARS: no external swelling, no external redness NOSE: atraumatic, no external swelling MOUTH/THROAT: mucous membranes moist and pink, posterior pharynx without erythema, swelling, exudate. No trismus or drooling. NECK: soft, supple, full range of motion, no meningismus. CHEST: no distress, scattered wheezes throughout. Good air movement. Right posterior chest wall tenderness to palpation. No ecchymosis. No rash. No crepitus. CARDIAC: regular rate and rhythm, no murmur, normal capillary refill, normal pulses. No peripheral edema noted. ABDOMEN: Soft, nontender. BACK: full range of motion, no CVA tenderness. No midline tenderness to step- off or crepitus to palpation of the cervical, thoracic, lumbar spine. EXTREMITIES: full range of motion of all extremities. No redness, no swelling. NEURO: alert and oriented 3, no focal deficits, full range of motion of all extremities. PYSCH: appropriate mood, affect. Patient is cooperative. SKIN: pink, warm, dry, no rash. Course - Re-evaluation Re-evalutation: 10/10/16 01:20 Patient's nontoxic with stable vitals. The patient has had right posterior chest wall pain since falling 2 weeks ago. He has a benign exam. His vital signs are stable. X-ray shows no fracture or pneumothorax. Patient looks well and can be discharged home. He is already on morphine for chronic pain. Just prior to discharge the patient asked for a prescription for antibiotics for a possible dental infection. He states that he had had some swelling to the right side of his face a few days ago and took a few of his son's antibiotics which improve this, but he is concerned he still has a dental infection. On exam he started have poor dental hygiene in general, no drainable abscess noted , no facial swelling. I will prescribe a course of Pen-Vee K for potential partially treated dental infection. The patient is noted to have elevated blood pressure during today's emergency department visit. The patient was informed of this finding. The patient was instructed that this may be related to pre-hypertension and requires further evaluation with a primary care provider. The patient has no hypertensive symptoms at this time. The patient's emergency department workup and current diagnosis were explained to the patient and or family. Follow-up instructions were provided. Medications if prescribed were discussed. Instructions for when to return to the emergency department including specific worrisome symptoms were discussed with the patient and/or family. - Vital Signs Vital signs: Temp Pulse Resp BP Pulse Ox 98.0 F 60 20 123/59 L 95 10/10/16 01:13 10/10/16 01:13 10/10/16 01:13 10/10/16 01:13 10/10/16 01:13 Discharge - Discharge Clinical Impression: Pain, dental Chest wall contusion Qualifiers: Encounter type: initial encounter Laterality: right Qualified Code(s): S20.211A - Contusion of right front wall of thorax, initial encounter Condition: Stable Disposition: HOME, SELF-CARE Instructions: Toothache ([facility]), Chest Wall Pain ([facility]) Additional Instructions: Take medications as prescribed. Take her normal pain medication as needed. Follow-up with her family doctor at the next available appointment, sooner for increased pain, fever, difficulty breathing, coughing up blood, abdominal pain, or any further concerns. Your blood pressure was elevated during today's visit. Have this rechecked with your doctor. Prescriptions: Penicillin V Potassium [Penicillin Vk 500 mg Tablet] 500 mg PO QID #28 tablet Forms: Elevated Blood Pressure
[2016-10-10 01:15] VITALS: BP 123/59
== END 2016-10-10 01:30 | disposition home or self-care (01) ==
LOC: ER 20:41
DX: S20.211A Contusion of right front wall of thorax, initial encounter (principal); M54.9 Dorsalgia, unspecified; R07.89 Other chest pain; K08.89 Other specified disorders of teeth and supporting structures; X58.XXXA Exposure to other specified factors, initial encounter
CPT/HCPCS: 99283

== ENCOUNTER 2016-10-16 02:38 | Emergency (ER) | payer MEDICARE, MEDICAID ==
[2016-10-16] MEDS ORDERED: NAPROXEN 250 MG TABLET PO ONE (03:11)
[2016-10-16] MEDS ORDERED: LIDOCAINE 5% (700 MG) TRANSDERMAL ADH..PATCH TP ONE (03:11)
--- NOTE | 2016-10-16 03:12 | ER Document Report ---
ED Neck/Back Problem - General Chief Complaint: Dizziness Stated Complaint: BACK PAIN Notes: The patient is a 70-year-old male, past medical history COPD, chronic arthritis , presents with 3 weeks of right mid back pain that occurred after he tripped and fell on his way to his primary care physician office. Since then, he has had the back pain. He takes morphine for his knee, but he still says the pain is present. Earlier tonight, he was twisting his body on the bed, felt severe pain and passed out briefly. TRAVEL OUTSIDE OF THE [place] IN LAST 30 DAYS: No - Related Data Allergies/Adverse Reactions: No Known Allergies Allergy (Unverified 10/09/16 20:47) Past Medical History - General Information source: Patient - Social History Smoking Status: Current Every Day Smoker Family History: Reviewed & Not Pertinent - Past Medical History Cardiac Medical History: Reports: Hx Congestive Heart Failure, Hx Coronary Artery Disease, Hx Heart Attack, Hx Hypertension, Hx Pulmonary Embolism Denies: Hx Hypercholesterolemia Pulmonary Medical History: Reports: Hx COPD Denies: Hx Sleep Apnea Neurological Medical History: Denies: Hx Seizures Endocrine Medical History: Reports: Hx Diabetes Mellitus Type 2 - History of same, but only on medication for short time.. Denies: Hx Diabetes Mellitus Type 1, Hx Hyperthyroidism, Hx Hypothyroidism Renal/ Medical History: Denies: Hx Peritoneal Dialysis GI Medical History: Denies: Hx Cirrhosis, Hx Gastroesophageal Reflux Disease, Hx Hepatitis Musculoskeltal Medical History: Reports Hx Arthritis Skin Medical History: Denies Hx Eczema, Denies Hx Psoriasis Psychiatric Medical History: Denies: Hx Depression Infectious Medical History: Denies: Hx Hepatitis Past Surgical History: Reports: Hx Cardiac Catheterization, Hx Cardiac Surgery - Pacemaker-removed due to infection, Hx Pacemaker - Initial device removed for infection; subsequent AICD implant., Hx Tonsillectomy - Immunizations Hx Diphtheria, Pertussis, Tetanus Vaccination: No - >5 YRS Hx Pneumococcal Vaccination: 03/27/11 Review of Systems - Review of Systems Notes: REVIEW OF SYSTEMS: CONSTITUTIONAL: -fevers, -chills EENT: -eye pain, -difficulty swallowing, -nasal congestion CARDIOVASCULAR: -chest pain, +syncope. RESPIRATORY: -cough, -SOB GASTROINTESTINAL: -abdominal pain, - nausea, -vomiting, -diarrhea GENITOURINARY: -dysuria, -hematuria MUSCULOSKELETAL: +back pain, -neck pain SKIN: -rash or skin lesions. HEMATOLOGIC: -easy bruising or bleeding. LYMPHATIC: -swollen, enlarged glands. NEUROLOGICAL: -altered mental status or loss of consciousness, -headache, - neurologic symptoms PSYCHIATRIC: -anxiety, -depression. ALL OTHER SYSTEMS REVIEWED AND NEGATIVE. Physical Exam - Vital signs Vitals: Temp Pulse Resp BP Pulse Ox 97.8 F 55 L 18 123/55 L 94 10/16/16 02:38 10/16/16 02:38 10/16/16 02:38 10/16/16 02:38 10/16/16 02:38 - Notes Notes: PHYSICAL EXAMINATION: GENERAL: Well-appearing, well-nourished and in no acute distress. HEAD: Atraumatic, normocephalic. EYES: Pupils equal round and reactive to light, extraocular movements intact, sclera anicteric, conjunctiva are normal. ENT: nares patent, oropharynx clear without exudates. Moist mucous membranes. NECK: Normal range of motion, supple without lymphadenopathy LUNGS: Breath sounds clear to auscultation bilaterally and equal. No wheezes rales or rhonchi. HEART: Regular rate and rhythm without murmurs ABDOMEN: Soft, nontender, normoactive bowel sounds. No guarding, no rebound. No masses appreciated. EXTREMITIES: Normal range of motion, no pitting or edema. No cyanosis. Strong distal pulses. BACK: tenderness over right lateral subscapular area NEUROLOGICAL: Cranial nerves grossly intact. Normal speech, normal gait. Normal sensory, motor, and reflex exams. PSYCH: Normal mood, normal affect. SKIN: Warm, Dry, normal turgor, no rashes or lesions noted. Course - Re-evaluation Re-evalutation: Patient's labs are unremarkable. EKG is similar to prior EKGs. Bedside ultrasound does not show a AAA or free fluid. Patient's brief syncopal episode most likely from the pain and spasming when he moved. He is tender in a discrete area below the right shoulder blade and the tenderness is reproducible. Patient is already on morphine from his primary care physician. Will add anti-inflammatories and Lidoderm patch with follow-up at his primary care physician. - Vital Signs Vital signs: Temp Pulse Resp BP Pulse Ox 97.5 F 53 L 20 127/70 H 93 10/16/16 05:00 10/16/16 05:00 10/16/16 05:00 10/16/16 05:00 10/16/16 05:00 - Laboratory Result Diagrams: 10/16/16 03:30 10/16/16 03:30 Laboratory results interpreted by me: 10/16/16 10/16/16 03:30 03:30 RDW 15.9 H BUN 25 H Creatinine 1.47 H Est GFR ( Amer) 57 L Est GFR (Non-Af Amer) 47 L ALT 16 L Discharge - Discharge Clinical Impression: Back pain Qualifiers: Back pain location: thoracic back pain Chronicity: chronic Back pain laterality : right Qualified Code(s): M54.6 - Pain in thoracic spine Condition: Stable Disposition: HOME, SELF-CARE Additional Instructions: Take Naprosyn every 12 hours and use the Lidoderm patches to help with her back pain. You must follow-up with her primary care physician to have the symptoms rechecked. LOW BACK PAIN: Three out of every four people will have an episode of disabling back pain during their lifetime. Most commonly the pain is due to straining of the muscles and ligaments in the low back. Usual treatment includes: (1) Rest on a firm surface. Avoid lying on your stomach. (2) Ice pack the painful area. After a few days, gentle heat may be used intermittently to relax the area, or ice packs can be continued. (3) Medication may be needed -- muscle relaxers and antiinflammatory medicines are commonly used. (4) As the back improves, exercises are prescribed to strengthen the back and abdominal muscles. Your doctor will advise you on the proper care for your back at each stage in your recovery. You may be better in a few days -- or healing may take several weeks. If new symptoms of a "herniated disc" (radiation of pain, numbness, or tingling down the back of the leg or weakness in the leg) occur, you should be re-examined. Further testing may be necessary. WARM PACKS: After approximately two days, apply gentle heat (such as a heating pad or hot water bottle) for about 20 to 30 minutes about every two hours -- at least four times daily. Warmth and elevation will help you make a more rapid recovery , and will ease the pain considerably. Do not use HOT heat, and never apply heat for longer than 30 minutes. The continuous heat can invisibly damage skin and muscles -- even when no burn is seen on the surface. Damaged muscles can make you MORE sore. FOLLOW-UP CARE: If you have been referred to a physician for follow-up care, call the physician s office for an appointment as you were instructed or within the next two days. If you experience worsening or a significant change in your symptoms, notify the physician immediately or return to the Emergency Department at any time for re-evaluation. Prescriptions: Lidocaine [Lidoderm 5% (700 mg) Transdermal Patch] 1 patch TP DAILY #10 adh..patch Naproxen [Naprosyn 250 mg Tablet] 500 mg PO Q12H PRN #30 tablet PRN Reason:
[2016-10-16 03:40] LABS: MEAN CORPUSCULAR VOLUME 94 fl (80-97)
[2016-10-16 03:50] LABS: ABSOLUTE EOSINOPHILS # (AUTO) 0.2 10^3/uL (0.0-0.6); ABSOLUTE LYMPHOCYTES (AUTO) 1.5 10^3/uL (0.5-4.7); ABSOLUTE MONOCYTES (AUTO) 0.6 10^3/uL (0.1-1.4); ABSOLUTE NEUT (AUTO) 2.6 10^3/uL (1.7-8.2); BASOPHILS % (AUTO) 0.5 % (0-2); EOSINOPHILS % (AUTO) 3.7 % (0-6); HEMATOCRIT 40.9 % (37.9-51.0); HEMOGLOBIN 13.6 g/dL (13.5-17.0); HGB HCT DIFFERENCE -0.1; LYMPHOCYTES % (AUTO) 30.2 % (13-45); MEAN CORPUSCULAR HEMOGLOBIN 31.2 pg (27.0-33.4); MEAN CORPUSCULAR HGB CONC 33.2 g/dL (32.0-36.0); MONOCYTES % (AUTO) 12.9 % (3-13); RED BLOOD COUNT 4.35 10^6/uL (4.35-5.55); RED CELL DISTRIBUTION WIDTH 15.9 % (11.5-14.0); SEGMENTED NEUTROPHILS % (AUTO) 52.7 % (42-78)
[2016-10-16 03:55] LABS: ALANINE AMINOTRANSFERASE 16 U/L (21-72); ALKALINE PHOSPHATASE 72 U/L (38-126); ANION GAP 13 (5-19); ASPARTATE AMINO TRANSFERASE 21 U/L (17-59); BILIRUBIN,DIRECT 0.4 mg/dL (0.0-0.4); BILIRUBIN,TOTAL 0.8 mg/dL (0.2-1.3); BLOOD UREA NITROGEN 25 mg/dL (7-20); CALCIUM 9.1 mg/dL (8.4-10.2); CARBON DIOXIDE 28 mmol/L (22-30); CHLORIDE 103 mmol/L (98-107); CREATINE KINASE 63 U/L (55-170); CREATININE RESULT 1.47 mg/dL (0.52-1.25); GLUCOSE 102 mg/dL (75-110); POTASSIUM 4.7 mmol/L (3.6-5.0); SODIUM 144.3 mmol/L (137-145); TOTAL PROTEIN 6.9 g/dL (6.3-8.2)
[2016-10-16] MEDS ORDERED: NAPROXEN 250 MG TABLET ONE (04:49)
[2016-10-16] MEDS ORDERED: LIDOCAINE 5% (700 MG) TRANSDERMAL ADH..PATCH ONE (04:49)
[2016-10-16 05:34] VITALS: BP 127/70
--- NOTE | 2016-10-17 16:48 | EKG REPORT ---
SEVERITY:- ABNORMAL ECG - A-FLUTTER W/ PREDOM 4:1 AV BLOCK, A-RATE 220 NONSPECIFIC IVCD WITH LAD INFERIOR INFARCT, AGE INDETERMINATE ANTERIOR INFARCT, OLD : Confirmed by: Barbara Ann MD 17-Oct-2016 16:47:20
== END 2016-10-16 06:00 | disposition home or self-care (01) ==
LOC: ER 02:38
DX: M54.6 Pain in thoracic spine (principal); R42 Dizziness and giddiness; M54.9 Dorsalgia, unspecified; J44.9 Chronic obstructive pulmonary disease, unspecified; W19.XXXA Unspecified fall, initial encounter; Z79.899 Other long term (current) drug therapy; F17.200 Nicotine dependence, unspecified, uncomplicated
CPT/HCPCS: 93005; 99284; 36415; 82550; 85025; 80053; 84484; 93010; A9270

== ENCOUNTER 2017-01-04 23:00 | Emergency (ER) | payer MEDICARE, MEDICAID ==
[2017-01-05 00:56] VITALS: BP 152/80
== END 2017-01-05 00:56 | disposition left against medical advice (07) ==
LOC: ER 23:00
DX: Z53.21 Procedure and treatment not carried out due to patient leaving prior to being seen by health care provider (principal)

== ENCOUNTER 2017-03-27 22:43 | Emergency (ER) | payer MEDICARE, MEDICAID ==
[2017-03-27 23:10] LABS: ABSOLUTE BASOPHILS # (AUTO) 0.1 10^3/uL (0.0-0.2); ABSOLUTE EOSINOPHILS # (AUTO) 0.3 10^3/uL (0.0-0.6); ABSOLUTE LYMPHOCYTES (AUTO) 1.6 10^3/uL (0.5-4.7); ABSOLUTE MONOCYTES (AUTO) 0.7 10^3/uL (0.1-1.4); ABSOLUTE NEUT (AUTO) 4.8 10^3/uL (1.7-8.2); BASOPHILS % (AUTO) 0.8 % (0-2); EOSINOPHILS % (AUTO) 3.8 % (0-6); HEMOGLOBIN 14.4 g/dL (13.5-17.0); HGB HCT DIFFERENCE 2.2; LYMPHOCYTES % (AUTO) 21.1 % (13-45); MEAN CORPUSCULAR HEMOGLOBIN 33.1 pg (27.0-33.4); MEAN CORPUSCULAR HGB CONC 35.1 g/dL (32.0-36.0); MEAN CORPUSCULAR VOLUME 94 fl (80-97); MONOCYTES % (AUTO) 9.8 % (3-13); RED BLOOD COUNT 4.35 10^6/uL (4.35-5.55); RED CELL DISTRIBUTION WIDTH 13.7 % (11.5-14.0); SEGMENTED NEUTROPHILS % (AUTO) 64.5 % (42-78); WHITE BLOOD COUNT 7.4 10^3/uL (4.0-10.5)
--- NOTE | 2017-03-27 23:31 | EKG REPORT ---
SEVERITY:- ABNORMAL ECG - ATRIAL FLUTTER, A-RATE 230 VENTRICULAR PREMATURE COMPLEX NONSPECIFIC IVCD WITH LAD INFERIOR INFARCT, OLD ANTERIOR INFARCT, OLD : Confirmed by: Farzana Still 27-Mar-2017 23:30:46
[2017-03-27 23:33] LABS: ALANINE AMINOTRANSFERASE 23 U/L (21-72); ALBUMIN 3.8 g/dL (3.5-5.0); ALKALINE PHOSPHATASE 85 U/L (38-126); ANION GAP 9 (5-19); ASPARTATE AMINO TRANSFERASE 20 U/L (17-59); BILIRUBIN,DIRECT 0.5 mg/dL (0.0-0.4); BILIRUBIN,TOTAL 1.1 mg/dL (0.2-1.3); BLOOD UREA NITROGEN 11 mg/dL (7-20); CALCIUM 9.4 mg/dL (8.4-10.2); CARBON DIOXIDE 27 mmol/L (22-30); CHLORIDE 103 mmol/L (98-107); CREATINE KINASE 74 U/L (55-170); CREATININE RESULT 1.26 mg/dL (0.52-1.25); GLUCOSE 112 mg/dL (75-110); POTASSIUM 3.8 mmol/L (3.6-5.0); SODIUM 138.9 mmol/L (137-145); TOTAL PROTEIN 6.7 g/dL (6.3-8.2)
[2017-03-27 23:43] LABS: CREATINE KINASE MB 1.42 ng/mL (<4.55); TROPONIN I 0.017 ng/mL
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
--- NOTE | 2017-03-28 01:18 | RADIOLOGY REPORT (SQ) ---
EXAM DESCRIPTION: CT HEAD WITHOUT COMPLETED DATE/TIME: 03/28/2017 12:45 am REASON FOR STUDY: Syncope or near syncope COMPARISON: CT brain 08/09/2016. TECHNIQUE: Axial images acquired through the brain without intravenous contrast. Images reviewed wi th bone, brain and subdural windows. Images stored on PACS. All CT scanners at this facility use dose modulation, iterative reconstruction, and/or weight based d osing when appropriate to reduce radiation dose to as low as reasonably achievable (ALARA). [facility]: Dose Right [facility]: CareDose [facility]: Dose Right [facility]: Teradose 4D [facility]: Smart Perdoo RADIATION DOSE: Up-to-date CT equipment and radiation dose reduction techniques were employed. CTDIv ol: 64.6 mGy. DLP: 1163 mGy-cm. mGy. LIMITATIONS: None. FINDINGS: VENTRICLES: Prominent. CEREBRUM: No mass effect. No hemorrhage. No midline shift. Areas of low density in the white matte r most likely due to chronic micro-vascular ischemic change. No evidence for acute territorial infar ction. CEREBELLUM: No hemorrhage. No alteration of density. No evidence for acute infarction. EXTRAAXIAL SPACES: Mild age-related involutional change. No fluid collections. ORBITS AND GLOBE: Symmetrical contour of the globes. CALVARIUM: No depressed fracture. PARANASAL SINUSES: Air-fluid levels in the bilateral maxillary sinuses, left more than right. SOFT TISSUES: No hematoma. IMPRESSION: No acute intracranial hemorrhage or acute territorial infarct. Chronic changes of atrop hy and microvascular ischemia. Bilateral maxillary sinus disease. EVIDENCE OF ACUTE STROKE: NO. TECHNICAL DOCUMENTATION: JOB ID: [id number] [facility] Quality ID # [id number]: Final reports with documentation of one or more dose reduction techniques (e.g., Au tomated exposure control, adjustment of the mA and/or kV according to patient size, use of iterative reconstruction technique) 2010 [employer]- All Rights Reserved
--- NOTE | 2017-03-28 01:39 | RADIOLOGY REPORT (SQ) ---
EXAM DESCRIPTION: KNEE LEFT 4 VIEW COMPLETED DATE/TIME: 03/28/2017 1:13 am REASON FOR STUDY: Fell and twisted left knee. COMPARISON: Left knee x-ray 12/04/2010, 09/30/2010. NUMBER OF VIEWS: Four views. TECHNIQUE: AP, lateral, and both oblique radiographic images acquired of the left knee. LIMITATIONS: None. FINDINGS: MINERALIZATION: Normal. BONES: Tricompartmental degenerative changes with joint space narrowing and osteophytosis, worse at t he medial compartment, increased in the interval . No evidence for acute fracture or dislocation. JOINT: Small joint effusion. SOFT TISSUES: No soft tissue swelling. No radio-opaque foreign body. Vascular calcifications are no karma. IMPRESSION: No radiographic evidence of acute fracture. Progression of degenerative changes. Small joint effusion. TECHNICAL DOCUMENTATION: JOB ID: [id number] [place]-[id number] 2010 [employer]- All Rights Reserved
--- NOTE | 2017-03-28 01:43 | RADIOLOGY REPORT (SQ) ---
EXAM DESCRIPTION: CHEST SINGLE VIEW COMPLETED DATE/TIME: 03/28/2017 12:31 am REASON FOR STUDY: syncope COMPARISON: Chest x-ray 11/30/2015. Rib series 10/10/2016. EXAM PARAMETERS: NUMBER OF VIEWS: One view. TECHNIQUE: Single frontal radiographic view of the chest acquired. RADIATION DOSE: NA LIMITATIONS: None. FINDINGS: LUNGS AND PLEURA: No consolidation, pneumothorax or pleural effusion. MEDIASTINUM AND HILAR STRUCTURES: No masses. Contour normal. HEART AND VASCULAR STRUCTURES: The heart remains mildly enlarged. No overt vascular congestion. BONES: Degenerative changes in the spine and at the bilateral shoulders. HARDWARE: None in the chest. IMPRESSION: Stable cardiomegaly. Otherwise, no acute radiographic finding in the chest. TECHNICAL DOCUMENTATION: JOB ID: [id number]
[2017-03-28] MEDS ORDERED: HYDROCODONE/ACETAMINOPHEN 5-325 MG 6 TAB/DSPK PO PRN (02:47)
[2017-03-28 04:05] VITALS: BP 134/81
== END 2017-03-28 04:05 | disposition home or self-care (01) ==
LOC: ER 22:43
DX: R55 Syncope and collapse (principal); I48.92 Unspecified atrial flutter; S83.92XA Sprain of unspecified site of left knee, initial encounter; W18.30XA Fall on same level, unspecified, initial encounter; R06.02 Shortness of breath; I50.9 Heart failure, unspecified; I25.10 Atherosclerotic heart disease of native coronary artery without angina pectoris; I11.0 Hypertensive heart disease with heart failure; J44.9 Chronic obstructive pulmonary disease, unspecified; E11.9 Type 2 diabetes mellitus without complications; Z86.711 Personal history of pulmonary embolism; Z95.810 Presence of automatic (implantable) cardiac defibrillator; I25.2 Old myocardial infarction
CPT/HCPCS: 93005; 99285; 36415; 82553; 80307; 82550; 85025; 80053; 84484; 71010; 73562; 70450; 93010; A9270

== ENCOUNTER 2017-05-31 18:03 | Emergency (ER) | payer MEDICARE, MEDICAID ==
[2017-05-31 18:45] VITALS: BP 131/65
--- NOTE | 2017-05-31 19:37 | ER Document Report ---
ED Medical Screen (RME) - General Chief Complaint: Upper Abdominal Pain Stated Complaint: UPPER ABDOMINAL PAIN Time Seen by Provider: 05/31/17 19:35 Mode of Arrival: Medic Information source: Patient Notes: Patient presents complaining of low back pain for the past 3 months that he states that he has chronically. Patient states that he developed left-sided lower chest pain this evening. Patient states that he has had heart attacks in the past and this does not feel the same. Patient states that he called EMS tonight because whenever he got up to go the bathroom he got dizzy and lightheaded and fell. Patient denies any loss of consciousness. Patient does state he recently finished antibiotics to treat recent upper respiratory infection. Patient does state he took aspirin at home prior to arrival. hx: PA, hypertension, COPD TRAVEL OUTSIDE OF THE [place] IN LAST 30 DAYS: No - Related Data Allergies/Adverse Reactions: No Known Allergies Allergy (Verified 05/31/17 18:14) Past Medical History - Past Medical History Cardiac Medical History: Reports: Hx Congestive Heart Failure, Hx Coronary Artery Disease, Hx Heart Attack, Hx Hypertension, Hx Pulmonary Embolism Pulmonary Medical History: Reports: Hx COPD Endocrine Medical History: Reports: Hx Diabetes Mellitus Type 2 - History of same, but only on medication for short time. Renal/ Medical History: Denies: Hx Peritoneal Dialysis Musculoskeltal Medical History: Reports Hx Arthritis Past Surgical History: Reports: Hx Cardiac Catheterization, Hx Cardiac Surgery - Pacemaker-removed due to infection, Hx Pacemaker - Initial device removed for infection; subsequent AICD implant., Hx Tonsillectomy - Immunizations Hx Diphtheria, Pertussis, Tetanus Vaccination: No - >5 YRS Physical Exam - Vital signs Vitals: Temp Pulse Resp BP Pulse Ox 97.7 F 67 20 131/65 H 96 05/31/17 18:42 05/31/17 18:42 05/31/17 18:42 05/31/17 18:42 05/31/17 18:42 - Cardiovascular Rhythm: Regular Heart sounds: S1 appreciated, S2 appreciated - Abdominal Inspection: Normal Tenderness: Nontender Course - Vital Signs Vital signs: Temp Pulse Resp BP Pulse Ox 97.7 F 67 20 131/65 H 96 05/31/17 18:42 05/31/17 18:42 05/31/17 18:42 05/31/17 18:42 05/31/17 18:42
[2017-05-31 20:07] LABS: APPEARANCE,URINE SLIGHTLY-CLOUDY; BILIRUBIN,URINE SMALL (NEGATIVE); GLUCOSE, URINE NEGATIVE (NEGATIVE); KETONES,URINE NEGATIVE (NEGATIVE); LEUKOCYTE ESTERASE,URINE NEGATIVE (NEGATIVE); NITRITE,URINE NEGATIVE (NEGATIVE); PROTEIN,URINE 30 mg/dL (NEGATIVE); URINE SPECIFIC GRAVITY 1.024; UROBILINOGEN,URINE NEGATIVE mg/dL (<2.0)
[2017-05-31 20:26] LABS: ABSOLUTE BASOPHILS # (AUTO) 0.1 10^3/uL (0.0-0.2); ABSOLUTE EOSINOPHILS # (AUTO) 0.3 10^3/uL (0.0-0.6); ABSOLUTE LYMPHOCYTES (AUTO) 2.6 10^3/uL (0.5-4.7); ABSOLUTE NEUT (AUTO) 6.8 10^3/uL (1.7-8.2); BASOPHILS % (AUTO) 0.8 % (0-2); EOSINOPHILS % (AUTO) 2.4 % (0-6); HEMATOCRIT 42.5 % (37.9-51.0); HEMOGLOBIN 14.9 g/dL (13.5-17.0); HGB HCT DIFFERENCE 2.2; LYMPHOCYTES % (AUTO) 24.3 % (13-45); MEAN CORPUSCULAR HEMOGLOBIN 32.6 pg (27.0-33.4); MEAN CORPUSCULAR HGB CONC 35.1 g/dL (32.0-36.0); MEAN CORPUSCULAR VOLUME 93 fl (80-97); MONOCYTES % (AUTO) 9.4 % (3-13); RED BLOOD COUNT 4.57 10^6/uL (4.35-5.55); RED CELL DISTRIBUTION WIDTH 14.1 % (11.5-14.0); SEGMENTED NEUTROPHILS % (AUTO) 63.1 % (42-78); WHITE BLOOD COUNT 10.7 10^3/uL (4.0-10.5)
--- NOTE | 2017-05-31 20:39 | RADIOLOGY REPORT (SQ) ---
EXAM DESCRIPTION: CHEST PA/LAT COMPLETED DATE/TIME: 05/31/2017 8:23 pm REASON FOR STUDY: cp COMPARISON: None. EXAM PARAMETERS: NUMBER OF VIEWS: two views TECHNIQUE: Digital Frontal and Lateral radiographic views of the chest acquired. RADIATION DOSE: NA LIMITATIONS: none FINDINGS: LUNGS AND PLEURA: No opacities, masses or pneumothorax. No pleural effusion. I cannot exc lude a component of obstructive lung disease. MEDIASTINUM AND HILAR STRUCTURES: No masses or contour abnormalities. HEART AND VASCULAR STRUCTURES: Heart normal size. No evidence for failure. BONES: No acute findings. HARDWARE: None in the chest. OTHER: No other significant finding. IMPRESSION: No significant interval change. No acute findings. Other findings as noted above TECHNICAL DOCUMENTATION: JOB ID: [id number] [employer]- All Rights Reserved
[2017-05-31 20:46] LABS: ALANINE AMINOTRANSFERASE 19 U/L (21-72); ALBUMIN 3.5 g/dL (3.5-5.0); ALKALINE PHOSPHATASE 75 U/L (38-126); ANION GAP 9 (5-19); ASPARTATE AMINO TRANSFERASE 21 U/L (17-59); BILIRUBIN,DIRECT 0.3 mg/dL (0.0-0.4); BILIRUBIN,TOTAL 0.7 mg/dL (0.2-1.3); BLOOD UREA NITROGEN 12 mg/dL (7-20); CALCIUM 8.4 mg/dL (8.4-10.2); CARBON DIOXIDE 29 mmol/L (22-30); CHLORIDE 96 mmol/L (98-107); CREATINE KINASE 38 U/L (55-170); CREATININE RESULT 1.07 mg/dL (0.52-1.25); GLUCOSE 87 mg/dL (75-110); MAGNESIUM 1.8 mg/dL (1.6-2.3); POTASSIUM 4.3 mmol/L (3.6-5.0); TOTAL PROTEIN 6.2 g/dL (6.3-8.2)
[2017-05-31 20:57] LABS: CREATINE KINASE MB 1.3 ng/mL (<4.55); TROPONIN I 0.018 ng/mL
--- NOTE | 2017-05-31 21:37 | EKG REPORT ---
SEVERITY:- ABNORMAL ECG - A-FLUTTER MULTIPLE VENTRICULAR PREMATURE COMPLEXES NONSPECIFIC IVCD WITH LAD ANTERIOR INFARCT, OLD : Confirmed by: Farzana Still 31-May-2017 21:36:19
[2017-05-31] MEDS ORDERED: LIDOCAINE 5% (700 MG) TRANSDERMAL ADH..PATCH TP ONE (21:59)
--- NOTE | 2017-05-31 22:06 | ER Document Report ---
ED General - General Chief Complaint: Medication Refill Stated Complaint: i have pain all over Time Seen by Provider: 05/31/17 19:35 Mode of Arrival: Ambulatory Information source: Patient, Relative - son TRAVEL OUTSIDE OF THE [place] IN LAST 30 DAYS: No - HPI Onset: Other - chronic Severity: Severe Pain Level: 5 Context: I am in pain all over Notes: Patient states that he is discharged from his pain management doctor and he is here for pain medication. He states he has pain all over. He is supposed to be on morphine 30 mg every few hours. He states he saw his pain management doctor who did a urine drug screen on him and he was positive for something other than morphine and so he was discharged from the practice. He is already seen his primary medical doctor who is trying to refer him to another pain management doctor. - Related Data Allergies/Adverse Reactions: No Known Allergies Allergy (Verified 05/31/17 18:14) Past Medical History - General Information source: Patient - Social History Smoking Status: Former Smoker Family History: Reviewed & Not Pertinent Patient has suicidal ideation: No Patient has homicidal ideation: No - Past Medical History Cardiac Medical History: Reports: Hx Congestive Heart Failure, Hx Coronary Artery Disease, Hx Heart Attack, Hx Hypertension, Hx Pulmonary Embolism Pulmonary Medical History: Reports: Hx COPD Endocrine Medical History: Reports: Hx Diabetes Mellitus Type 2 - History of same, but only on medication for short time. Renal/ Medical History: Denies: Hx Peritoneal Dialysis Musculoskeltal Medical History: Reports Hx Arthritis Past Surgical History: Reports: Hx Cardiac Catheterization, Hx Cardiac Surgery - Pacemaker-removed due to infection, Hx Pacemaker - Initial device removed for infection; subsequent AICD implant., Hx Tonsillectomy - Immunizations Hx Diphtheria, Pertussis, Tetanus Vaccination: No - >5 YRS Hx Pneumococcal Vaccination: 03/27/11 Review of Systems - Review of Systems Constitutional: No symptoms reported EENT: No symptoms reported Cardiovascular: No symptoms reported Respiratory: No symptoms reported Gastrointestinal: No symptoms reported Genitourinary: No symptoms reported Musculoskeletal: Back pain, Joint pain, Muscle pain, Neck pain Skin: No symptoms reported Hematologic/Lymphatic: No symptoms reported Neurological/Psychological: No symptoms reported Physical Exam - Vital signs Vitals: Temp Pulse Resp BP Pulse Ox 97.7 F 67 20 131/65 H 96 05/31/17 18:42 05/31/17 18:42 05/31/17 18:42 05/31/17 18:42 05/31/17 18:42 - Notes Notes: PHYSICAL EXAMINATION: GENERAL: Chronically ill-appearing well-nourished. He up on [facility] in no apparent distress HEAD: Atraumatic, normocephalic. EYES: Pupils equal round and reactive to light, extraocular movements intact, sclera anicteric, conjunctiva are normal. ENT: Nares patent, oropharynx clear without exudates. Moist mucous membranes. NECK: Normal range of motion, supple without lymphadenopathy LUNGS: Breath sounds clear to auscultation bilaterally and equal. No wheezes rales or rhonchi. HEART: Irregular rhythm ABDOMEN: obese, nontender, nondistended abdomen. No guarding, no rebound. No masses appreciated. Musculoskeletal: Normal range of motion, S1 edema bilateral lower extremities. No cyanosis. NEUROLOGICAL: Cranial nerves grossly intact. Normal speech, dilatory with cane. Normal sensory, motor exams PSYCH: Normal mood, normal affect. SKIN: Warm, Dry, normal turgor, no rashes or lesions noted. Course - Re-evaluation Re-evalutation: 05/31/17 22:24 Talk to the patient as well as his son extensively. I did tell him that he has chronic pain and I am not able to give him narcotic pain medication for his chronic pain syndrome. I did tell the patient to call his primary medical doctor for referral to a pain management doctor. Patient's son was in the room and he stated that that is already in the works. The primary medical doctor has already given him paperwork and has made a phone call to find him a new pain management doctor. Patient's son stated that the patient must have taken 1 of his tramadol's and so he tested positive for that and that is why he was discharged from his pain management doctors office. - Vital Signs Vital signs: Temp Pulse Resp BP Pulse Ox 97.7 F 67 20 131/65 H 96 05/31/17 18:42 05/31/17 18:42 05/31/17 18:42 05/31/17 18:42 05/31/17 18:42 - Laboratory Result Diagrams: 05/31/17 20:14 05/31/17 20:14 Laboratory results interpreted by me: 05/31/17 05/31/17 05/31/17 19:40 20:14 20:14 WBC 10.7 H RDW 14.1 H Sodium 134.0 L Chloride 96 L ALT 19 L Creatine Kinase 38 L Total Protein 6.2 L Urine Protein 30 H Urine Bilirubin SMALL H - EKG Interpretation by Me Rate: Normal Rhythm: A.Flutter When compared to previous EKG there are: No significant change Discharge - Discharge Clinical Impression: Pain Condition: Stable Disposition: HOME, SELF-CARE Instructions: Pain Management Referrals: MAURICE ORTIZ DO [Primary Care Provider] - Follow up tomorrow (Please call your primary medical doctor to follow up a referral to pain management that he is doing for you)
== END 2017-05-31 22:44 | disposition home or self-care (01) ==
LOC: ER 18:03
DX: R52 Pain, unspecified (principal); E66.9 Obesity, unspecified; I50.9 Heart failure, unspecified; I25.10 Atherosclerotic heart disease of native coronary artery without angina pectoris; I11.0 Hypertensive heart disease with heart failure; Z86.711 Personal history of pulmonary embolism; I25.2 Old myocardial infarction; Z95.810 Presence of automatic (implantable) cardiac defibrillator
CPT/HCPCS: 36415; 71020; 80053; 81001; 82550; 82553; 83735; 84484; 85025; 93005; 93010; 99283

== ENCOUNTER 2017-07-06 13:58 | Emergency (ER) | payer MEDICARE, OTHER ==
--- NOTE | 2017-07-06 16:27 | ER Document Report ---
ED Fall - General Chief Complaint: Fall Stated Complaint: FALL,RIGHT ANKLE INJURY Time Seen by Provider: 07/06/17 15:36 Mode of Arrival: Medic Information source: Patient, [facility] Records Notes: This 71-year-old male patient who does have walking difficulties reports getting up out of bed and slipping on a loose piece of plywood on his floor. He landed twisting his left low back, his right knee and his right ankle. He does complain of pain in each of these locations. All this occurred about 1 PM today. He states he is unable to walk now due to the discomfort in his left low back, right knee and right ankle. He does normally use a walker when he is away from the house and a 4 footed cane when he is at home. TRAVEL OUTSIDE OF THE [place] IN LAST 30 DAYS: No - Related data Allergies/Adverse Reactions: No Known Allergies Allergy (Verified 07/06/17 14:02) Past Medical History - General Information source: Patient - Social History Smoking Status: Former Smoker Cigarette use (# per day): No Chew tobacco use (# tins/day): No Smoking Education Provided: No Frequency of alcohol use: Occasional Occupation: Retired Lives with: Family Family History: Reviewed & Not Pertinent Patient has suicidal ideation: No Patient has homicidal ideation: No - Past Medical History Cardiac Medical History: Reports: Hx Congestive Heart Failure, Hx Coronary Artery Disease, Hx Heart Attack, Hx Hypertension, Hx Pulmonary Embolism Pulmonary Medical History: Reports: Hx COPD EENT Medical History: Reports: None Neurological Medical History: Reports: None Endocrine Medical History: Reports: Hx Diabetes Mellitus Type 2 - History of same, but only on medication for short time. Renal/ Medical History: Reports: None GI Medical History: Reports: None Musculoskeltal Medical History: Reports Hx Arthritis Psychiatric Medical History: Reports: None Past Surgical History: Reports: Hx Cardiac Catheterization, Hx Cardiac Surgery - Pacemaker-removed due to infection, Hx Coronary Stent, Hx Pacemaker - Initial device removed for infection; subsequent AICD implant., Hx Tonsillectomy - Immunizations Hx Diphtheria, Pertussis, Tetanus Vaccination: No - >5 YRS Hx Pneumococcal Vaccination: 03/27/11 Review of Systems - Review of Systems Constitutional: No symptoms reported EENT: No symptoms reported Cardiovascular: No symptoms reported, Edema Respiratory: No symptoms reported Gastrointestinal: No symptoms reported Musculoskeletal: See HPI, Back pain, Joint pain, Other - Gait difficulty Skin: No symptoms reported Hematologic/Lymphatic: No symptoms reported Neurological/Psychological: No symptoms reported Physical Exam - Vital signs Vitals: Temp Pulse Resp BP Pulse Ox 98.1 F 62 16 97/57 L 94 07/06/17 14:09 07/06/17 14:09 07/06/17 14:07/06/17 14:07/06/17 14:09 Interpretation: Hypotensive - General General appearance: Appears well, Alert In distress: None - HEENT Head: Normocephalic, Atraumatic Eyes: Normal Pupils: PERRL Neck: Other - Respiratory Respiratory status: No respiratory distress Breath sounds: Normal - Cardiovascular Rhythm: Regular Heart sounds: Normal auscultation Murmur: No - Abdominal Inspection: Obese Distension: No distension Bowel sounds: Normal Tenderness: Nontender - Back Back: Tender - Very tender in the left lumbar back muscles. Less tender over the lumbar spinous processes. Not tender in the right lumbar back - Extremities General upper extremity: Normal inspection General lower extremity: Edema Knee: Other - There is tenderness to palpate the right anterior knee. There does not appear to be an effusion. There is minimal tenderness to the lateral and medial aspects of the knee. Ankle: Other - There is some edema to the right ankle, he reports pain on either side but the physical exam is not very remarkable. Walk around his is undergone recent Roland the patient fly Foot: Edema - Neurological Neuro grossly intact: Yes - Psychological Associated symptoms: Normal affect, Normal mood - Skin Skin Temperature: Warm Skin Moisture: Dry Skin Color: Normal Course - Re-evaluation Re-evalutation: 07/06/17 19:02 The right knee immobilizer and right ankle Oren wrap was applied by the nurse. They both fit well and provide comfort and stability. - Vital Signs Vital signs: Temp Pulse Resp BP Pulse Ox 98.1 F 62 16 97/57 L 94 07/06/17 14:09 07/06/17 14:07/06/17 14:07/06/17 14:07/06/17 14:09 - Diagnostic Test Radiology reviewed: Image reviewed, Reports reviewed - Lumbar spine x-ray showed degenerative changes nothing acute. Right knee shows degenerative joint disease worse in the medial compartment with no acute changes. Right ankle shows arthritic changes with nothing acute. Discharge - Discharge Clinical Impression: Fall Qualifiers: Encounter type: initial encounter Qualified Code(s): W19.XXXA - Unspecified fall, initial encounter Lumbar strain Qualifiers: Encounter type: initial encounter Qualified Code(s): S39.012A - Strain of muscle, fascia and tendon of lower back, initial encounter Right knee sprain Qualifiers: Encounter type: initial encounter Involved ligament of knee: unspecified ligament Qualified Code(s): S83.91XA - Sprain of unspecified site of right knee , initial encounter Mild ankle sprain Qualifiers: Encounter type: initial encounter Laterality: right Qualified Code(s): S93.401A - Sprain of unspecified ligament of right ankle, initial encounter Condition: Stable Disposition: HOME, SELF-CARE Additional Instructions: Your x-rays did not show any acute bony injuries. Your exam suggests you have strained her left lumbar back muscles, your right knee, and your right ankle. Ice packs to the knee and ankle today may help. Elevating the feet as much as possible will help. Use knee immobilizer to stabilize her knee when you do have to get up and walk. Use your walker while you are in the house until you are knee and ankle are feeling much better. Continue your regular medications. Follow-up with your primary care provider if not improving. RETURN TO THE EMERGENCY ROOM IF ANY NEW OR WORSENING SYMPTOMS.
--- NOTE | 2017-07-06 16:49 | RADIOLOGY REPORT (SQ) ---
EXAM DESCRIPTION: L SPINE WHOLE COMPLETED DATE/TIME: 07/06/2017 4:37 pm REASON FOR STUDY: slip fall@home-pain knee,ankle, low back COMPARISON: None. NUMBER OF VIEWS: Five views including obliques. TECHNIQUE: AP, lateral, oblique, and sacral radiographic images acquired of the lumbar spine. LIMITATIONS: None. FINDINGS: MINERALIZATION: Normal. SEGMENTATION: Normal. No transitional anatomy. ALIGNMENT: Normal. VERTEBRAE: Maintained height. No fracture or worrisome bone lesion. DISCS: Preserved height. No significant osteophytes or end plate irregularity. POSTERIOR ELEMENTS: No pars defect. Multilevel facet arthropathy with degenerative overgrowth. HARDWARE: None in the spine. PARASPINAL SOFT TISSUES: Dense aortic calcification. PELVIS: Intact as visualized. No fractures or worrisome bone lesions. SI joints intact. OTHER: Mild gaseous distention in the abdomen, nonspecific. IMPRESSION: Spondylosis. Facet arthropathy. No gross fracture. TECHNICAL DOCUMENTATION: JOB ID: [id number] [employer]- All Rights Reserved
--- NOTE | 2017-07-06 16:51 | RADIOLOGY REPORT (SQ) ---
EXAM DESCRIPTION: KNEE RIGHT 4 VIEWS COMPLETED DATE/TIME: 07/06/2017 4:37 pm REASON FOR STUDY: slip fall@home-pain knee,ankle, low back COMPARISON: None. NUMBER OF VIEWS: Four views right knee. LIMITATIONS: None. FINDINGS: Osteopenic. Pronounced medial compartment joint space narrowing with spurring. Mild talbert llar spurring. Joint effusion, at least small. No fracture or bone lesion detected. OTHER: No other significant finding. IMPRESSION: DJD, most pronounced in the medial compartment. TECHNICAL DOCUMENTATION: JOB ID: [id number]
--- NOTE | 2017-07-06 16:54 | RADIOLOGY REPORT (SQ) ---
EXAM DESCRIPTION: ANKLE RIGHT COMPLETE COMPLETED DATE/TIME: 07/06/2017 4:37 pm REASON FOR STUDY: slip fall@home-pain knee,ankle, low back COMPARISON: None. NUMBER OF VIEWS: Three views. TECHNIQUE: AP, lateral, and oblique radiographic images acquired of the right ankle. LIMITATIONS: None. FINDINGS: MINERALIZATION: Normal. BONES: No acute fracture or dislocation. No worrisome bone lesions. JOINTS: No effusions. SOFT TISSUES: No soft tissue swelling. No foreign body. OTHER: No other significant finding. IMPRESSION: NEGATIVE STUDY OF THE RIGHT ANKLE. NO RADIOGRAPHIC EVIDENCE OF ACUTE INJURY. TECHNICAL DOCUMENTATION: JOB ID: [id number] [employer]- All Rights Reserved
[2017-07-06 19:07] VITALS: BP 141/54
== END 2017-07-06 20:30 | disposition home or self-care (01) ==
LOC: ER 13:58
DX: S93.401A Sprain of unspecified ligament of right ankle, initial encounter (principal); S83.91XA Sprain of unspecified site of right knee, initial encounter; S39.012A Strain of muscle, fascia and tendon of lower back, initial encounter; W01.0XXA Fall on same level from slipping, tripping and stumbling without subsequent striking against object, initial encounter; Y92.009 Unspecified place in unspecified non-institutional (private) residence as the place of occurrence of the external cause; M17.11 Unilateral primary osteoarthritis, right knee; M47.9 Spondylosis, unspecified; R26.2 Difficulty in walking, not elsewhere classified; I10 Essential (primary) hypertension; I25.10 Atherosclerotic heart disease of native coronary artery without angina pectoris; I25.2 Old myocardial infarction; E11.9 Type 2 diabetes mellitus without complications; J44.9 Chronic obstructive pulmonary disease, unspecified; Z95.5 Presence of coronary angioplasty implant and graft; Z95.810 Presence of automatic (implantable) cardiac defibrillator; Z87.891 Personal history of nicotine dependence
CPT/HCPCS: 99284; 73610; 73564; 72110; L1830

== ENCOUNTER 2017-07-28 21:03 | Emergency (ER) | payer MEDICARE ==
[2017-07-28] MEDS ORDERED: ASPIRIN 81 MG TABLET, CHEWABLE PO ONE (21:57)
[2017-07-28 22:04] LABS: ABSOLUTE EOSINOPHILS # (AUTO) 0.3 10^3/uL (0.0-0.6); ABSOLUTE LYMPHOCYTES (AUTO) 1.7 10^3/uL (0.5-4.7); ABSOLUTE MONOCYTES (AUTO) 0.6 10^3/uL (0.1-1.4); ABSOLUTE NEUT (AUTO) 3.6 10^3/uL (1.7-8.2); BASOPHILS % (AUTO) 0.7 % (0-2); EOSINOPHILS % (AUTO) 5.1 % (0-6); HEMOGLOBIN 14.4 g/dL (13.5-17.0); LYMPHOCYTES % (AUTO) 27.2 % (13-45); MEAN CORPUSCULAR HEMOGLOBIN 32.1 pg (27.0-33.4); MEAN CORPUSCULAR HGB CONC 33.6 g/dL (32.0-36.0); MEAN CORPUSCULAR VOLUME 96 fl (80-97); MONOCYTES % (AUTO) 8.9 % (3-13); PLATELET COUNT 250 10^3/uL (150-450); RED CELL DISTRIBUTION WIDTH 14.7 % (11.5-14.0); SEGMENTED NEUTROPHILS % (AUTO) 58.1 % (42-78); TOTAL CELLS COUNTED % (AUTO) 100 %; WHITE BLOOD COUNT 6.2 10^3/uL (4.0-10.5)
[2017-07-28 22:10] LABS: ALANINE AMINOTRANSFERASE 15 U/L (21-72); ALBUMIN 3.7 g/dL (3.5-5.0); ALKALINE PHOSPHATASE 77 U/L (38-126); ANION GAP 7 (5-19); ASPARTATE AMINO TRANSFERASE 23 U/L (17-59); BILIRUBIN,DIRECT 0.3 mg/dL (0.0-0.4); BILIRUBIN,TOTAL 0.7 mg/dL (0.2-1.3); BLOOD UREA NITROGEN 13 mg/dL (7-20); CALCIUM 9.1 mg/dL (8.4-10.2); CARBON DIOXIDE 31 mmol/L (22-30); CHLORIDE 98 mmol/L (98-107); CREATINE KINASE 55 U/L (55-170); GLUCOSE 88 mg/dL (75-110); POTASSIUM 4.4 mmol/L (3.6-5.0); SODIUM 136.2 mmol/L (137-145); TOTAL PROTEIN 6.5 g/dL (6.3-8.2)
--- NOTE | 2017-07-28 22:10 | ER Document Report ---
ED General - General Chief Complaint: Chest Pain Stated Complaint: CHEST PAIN Time Seen by Provider: 07/28/17 22:07 Notes: Patient is a 71-year-old male who presents with complaint of chest pain. Patient is a pain is only over the area where his previous pacemaker was placed. He does not have a pacemaker anymore as it was removed in the past due to infection. He says that he has had some cough. He says anytime he coughs or moves or pushes over this area hurts. He denies difficulty breathing. No fevers. No vomiting. No diarrhea. No other complaints at this time. TRAVEL OUTSIDE OF THE [place] IN LAST 30 DAYS: No - Related Data Allergies/Adverse Reactions: No Known Allergies Allergy (Verified 07/06/17 14:02) Past Medical History - Social History Smoking Status: Never Smoker Frequency of alcohol use: None Drug Abuse: None Family History: Reviewed & Not Pertinent Patient has suicidal ideation: No Patient has homicidal ideation: No - Past Medical History Cardiac Medical History: Reports: Hx Congestive Heart Failure, Hx Coronary Artery Disease, Hx Heart Attack, Hx Hypertension, Hx Pulmonary Embolism Pulmonary Medical History: Reports: Hx COPD Endocrine Medical History: Reports: Hx Diabetes Mellitus Type 2 - History of same, but only on medication for short time. Renal/ Medical History: Denies: Hx Peritoneal Dialysis Musculoskeltal Medical History: Reports Hx Arthritis Past Surgical History: Reports: Hx Cardiac Catheterization, Hx Cardiac Surgery - Pacemaker-removed due to infection, Hx Coronary Stent, Hx Pacemaker - Initial device removed for infection; subsequent AICD implant., Hx Tonsillectomy - Immunizations Hx Diphtheria, Pertussis, Tetanus Vaccination: No - >5 YRS Hx Pneumococcal Vaccination: 03/27/11 Review of Systems - Review of Systems Notes: My Normal Review Basic REVIEW OF SYSTEMS: CONSTITUTIONAL : Denies fever, chills, or sweats. Denies recent illness. EENT: Denies eye, ear, throat, or mouth pain or symptoms. Denies nasal or sinus congestion. CARDIOVASCULAR: Chest pain over left upper chest. RESPIRATORY: Denies cough, cold, or chest congestion. Denies shortness of breath, difficulty breathing, or wheezing. GASTROINTESTINAL: Denies abdominal pain. Denies nausea, vomiting, or diarrhea. Denies constipation. Last BM: MUSCULOSKELETAL: Denies neck or back pain or joint pain or swelling. SKIN: Denies rash or skin lesions. NEUROLOGICAL: Denies altered mental status or loss of consciousness. Denies headache. Denies weakness or paralysis or loss of use of either side. Denies problems with gait or speech. Denies sensory or motor loss. ALL OTHER SYSTEMS REVIEWED AND NEGATIVE. Physical Exam - Vital signs Vitals: Temp Pulse Resp BP Pulse Ox 97.7 F 68 18 120/70 97 07/28/17 21:03 07/28/17 21:03 07/28/17 21:03 07/28/17 21:03 07/28/17 21:03 - Notes Notes: General Appearance: Well nourished, alert, cooperative, no acute distress, mild to moderate obvious discomfort. Vitals: reviewed, See vital signs table. Head: no swelling or tenderness to the head Eyes: PERRL, EOMI, Conjuctiva clear Mouth: No decreasd moisture Lungs: No wheezing, No rales, No rhonci, No accessory muscle use, good air exchange bilaterally. Heart: Normal rate, Regular rythm, No murmur, no rub Chest wall: Patient has tenderness is very easily reproducible to palpation over the scar where his previous pacemaker was placed. The pain is reproduced with palpation is the same pain at the patient says he has been having. Patient only has pain over this area and does not have pain anywhere else to palpation. No redness or swelling to the area. Abdomen: Normal BS, soft, No rigidity, No abdominal tenderness, No guarding, no rebound, no abdominal masses, no organomegaly Extremities: strength 5/5 in all extremities, good pulses in all extremities, no swelling or tenderness in the extremities, no edema. Skin: warm, dry, appropriate color, no rash Neuro: speech clear, oriented x 3, normal affect, responds appropriately to questions. Course - Re-evaluation Re-evalutation: 07/29/17 02:07 I did call the lab because a repeat troponin is been taking some time to come back. The lab says that analyzer went down and right now the running the quality control chemist measure on that. They said that they then will be able to run the patient's lab test. I did inform the patient of this and he understands of the leg. I have given him some food and drink. He currently looks well. Has no further concerns. I explained to him that the chest x-ray does show what looks to be an early pneumonia. He has no leukocytosis or fever however on my review the chest x-ray does really look consistent with a early pneumonia and he does not have these findings on his previous chest x-ray. Therefore we will start him on antibiotic. He is agreeable to this plan. 07/29/17 06:14 3. Troponin is stable. He went from 0.017 2.020. This is not consistent with acute coronary syndrome. Patient's pain on exam is easily reproducible to palpation over the left upper chest wall. I suspect patient probably has had some coughing relation to what appears to be pneumonia on chest x-ray. This is probably because strain or tear over some scar tissue over the left upper chest from where his previous pacemaker was. He has pain only to palpation or movement. The pain is only over the area of where the pacemaker was placed prior. There is no redness or swelling to suggest infection over the this area. Patient encouraged follow-up closely with his primary care doctor. Patient encouraged to take antibiotics. He is encouraged to return to ER if he has difficulty breathing, worsening pain, or feels unwell. Patient agrees with plan will be discharged home. Dictation of this chart was performed using voice recognition software; therefore, there may be some unintended grammatical errors. - Vital Signs Vital signs: Temp Pulse Resp BP Pulse Ox 97.7 F 68 13 136/76 H 97 07/28/17 21:03 07/28/17 21:03 07/29/17 04:15 07/29/17 04:01 07/29/17 04:15 - Laboratory Result Diagrams: 07/28/17 21:31 07/28/17 21:31 Laboratory results interpreted by me: 07/28/17 07/28/17 21:31 21:31 RDW 14.7 H Sodium 136.2 L Carbon Dioxide 31 H ALT 15 L - EKG Interpretation by Me Additional EKG results interpreted by me: 07/28/17 22:08 EKG shows appears to be atrial flutter with a rate of about 60 bpm. Occasional PVC. No ST segment elevation or depression. QRS duration is within normal range. Computer is reading a QTc interval as 638 however it is not being measured appropriately. QTc interval is approximately between 400 5500.. EKG is consistent with findings on previous EKG from May 31, 2017. Discharge - Discharge Clinical Impression: Chest pain Qualifiers: Chest pain type: unspecified Qualified Code(s): R07.9 - Chest pain, unspecified Pneumonia Qualifiers: Pneumonia type: due to unspecified organism Laterality: right Lung location: lower lobe of lung Qualified Code(s): J18.1 - Lobar pneumonia, unspecified organism Condition: Good Disposition: HOME, SELF-CARE Additional Instructions: Your EKG does not show any concerning findings. Your exam suggests that your pain is musculoskeletal over the left upper anterior chest. I think most likely you probably have some scar tissue where your previous defibrillator was removed from the chest. I suspect this most likely is causing pain over the area. Please still have a low threshold to return to the ER if you have worsening pain, change in location of pain, difficulty breathing, or if you feel you are worsening in any way. Your chest x-ray does show evidence of a developing pneumonia. We will therefore place you on an antibiotic. Please follow-up with your doctor on Tuesday for close reevaluation. Prescriptions: Levofloxacin [Levaquin 750 mg Tablet] 750 mg PO DAILY #5 tablet
[2017-07-28 22:22] LABS: CREATINE KINASE MB 1.15 ng/mL (<4.55); TROPONIN I 0.017 ng/mL
--- NOTE | 2017-07-28 22:23 | RADIOLOGY REPORT (SQ) ---
EXAM DESCRIPTION: CHEST SINGLE VIEW COMPLETED DATE/TIME: 07/28/2017 10:15 pm REASON FOR STUDY: CP COMPARISON: 05/31/2017. NUMBER OF VIEWS: One view. TECHNIQUE: Single frontal radiographic view of the chest acquired. LIMITATIONS: None. FINDINGS: LUNGS AND PLEURA: Patchy density in the right lung base. No masses or pneumothorax. No p leural effusion. MEDIASTINUM AND HILAR STRUCTURES: No masses. Contour normal. HEART AND VASCULAR STRUCTURES: Heart enlarged without failure. Normal vasculature. BONES: No acute findings. HARDWARE: None in the chest. OTHER: No other significant finding. IMPRESSION: HEART ENLARGED WITHOUT FAILURE. PATCHY DENSITY IN THE RIGHT LUNG BASE, ATELECTASIS VERS US EARLY INFILTRATE. TECHNICAL DOCUMENTATION: JOB ID: [id number] [employer]- All Rights Reserved
[2017-07-28] MEDS ORDERED: MORPHINE SULFATE 10 MG/ML INJ IV ONE (22:24)
[2017-07-29] MEDS ORDERED: LEVOFLOXACIN 750 MG TABLET PO ONE (02:07)
[2017-07-29 04:18] VITALS: BP 136/76
--- NOTE | 2017-07-29 07:55 | EKG REPORT ---
SEVERITY:- ABNORMAL ECG - ATRIAL FIBRILLATION /FLUTTER RUN OF VENTRICULAR PREMATURE COMPLEXES NONSPECIFIC INTRAVENTRICULAR CONDUCTION DELAY OLD INFERIOR AND OLD ANTERIOR OR : Confirmed by: Negro Pisano MD 29-Jul-2017 07:54:40
--- NOTE | 2017-07-29 18:26 | EKG REPORT ---
SEVERITY:- ABNORMAL ECG - A-FLUTTER W/ PREDOM 3:1 AV BLOCK, A-RATE 230 NONSPECIFIC IVCD WITH LAD INFERIOR INFARCT, ACUTE ANTERIOR INFARCT, AGE INDETERMINATE : Confirmed by: Negro Pisano MD 29-Jul-2017 18:25:32
== END 2017-07-29 04:30 | disposition home or self-care (01) ==
LOC: ER 21:03
DX: J18.1 Lobar pneumonia, unspecified organism (principal); R07.9 Chest pain, unspecified; R05 Cough
CPT/HCPCS: 93005; 99285; 96374; 36415; 82553; 82550; 85025; 80053; 84484; 71045; 93010; A9270 ×2; J2270

== ENCOUNTER 2017-07-29 14:23 | Emergency (ER) | payer MEDICARE ==
--- NOTE | 2017-07-29 14:47 | ER Document Report ---
ED Medical Screen (RME) - General Chief Complaint: Suicidal Ideation Stated Complaint: PHYSC PROBLEM Time Seen by Provider: 07/29/17 14:42 Notes: 71-year-old male brought in on papers for evaluation. Was apparently [place] Was stopped by the global logistics analyst's department. Patient refusing to cooperate or speak with anyone with regards to why he was walking down the street. I have greeted and performed a rapid initial assessment of this patient. A comprehensive ED assessment and evaluation of the patient, analysis of test results and completion of the medical decision making process will be conducted by additional ED providers. TRAVEL OUTSIDE OF THE [place] IN LAST 30 DAYS: No - Related Data Allergies/Adverse Reactions: No Known Allergies Allergy (Verified 07/06/17 14:02) Past Medical History - Social History Frequency of alcohol use: unknown - Past Medical History Cardiac Medical History: Reports: Hx Congestive Heart Failure, Hx Coronary Artery Disease, Hx Heart Attack, Hx Hypertension, Hx Pulmonary Embolism Pulmonary Medical History: Reports: Hx COPD Endocrine Medical History: Reports: Hx Diabetes Mellitus Type 2 - History of same, but only on medication for short time. 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, Hx Coronary Stent, Hx Pacemaker - Initial device removed for infection; subsequent AICD implant., Hx Tonsillectomy - Immunizations Hx Diphtheria, Pertussis, Tetanus Vaccination: No - >5 YRS Physical Exam - Vital signs Vitals: Temp Pulse Resp BP Pulse Ox 97.9 F 79 21 H 145/85 H 95 07/29/17 14:30 07/29/17 14:30 07/29/17 14:30 07/29/17 14:30 07/29/17 14:30 Course - Vital Signs Vital signs: Temp Pulse Resp BP Pulse Ox 97.9 F 79 21 H 145/85 H 95 07/29/17 14:30 07/29/17 14:30 07/29/17 14:30 07/29/17 14:30 07/29/17 14:30
[2017-07-29] MEDS ORDERED: HALOPERIDOL LACTATE INJ 5 MG/1 ML VIAL IM ONE (15:14)
[2017-07-29] MEDS ORDERED: DIPHENHYDRAMINE HCL 50 MG/ML VIAL IM ONE (15:14)
[2017-07-29 16:02] LABS: ABSOLUTE BASOPHILS # (AUTO) 0.1 10^3/uL (0.0-0.2); ABSOLUTE EOSINOPHILS # (AUTO) 0.2 10^3/uL (0.0-0.6); ABSOLUTE LYMPHOCYTES (AUTO) 1.4 10^3/uL (0.5-4.7); ABSOLUTE MONOCYTES (AUTO) 0.7 10^3/uL (0.1-1.4); ABSOLUTE NEUT (AUTO) 5.4 10^3/uL (1.7-8.2); BASOPHILS % (AUTO) 0.9 % (0-2); EOSINOPHILS % (AUTO) 3.1 % (0-6); HEMATOCRIT 47.3 % (37.9-51.0); HEMOGLOBIN 16.2 g/dL (13.5-17.0); LYMPHOCYTES % (AUTO) 17.6 % (13-45); MEAN CORPUSCULAR HEMOGLOBIN 32.6 pg (27.0-33.4); MEAN CORPUSCULAR HGB CONC 34.3 g/dL (32.0-36.0); MEAN CORPUSCULAR VOLUME 95 fl (80-97); MONOCYTES % (AUTO) 8.5 % (3-13); PLATELET COUNT 290 10^3/uL (150-450); RED BLOOD COUNT 4.97 10^6/uL (4.35-5.55); RED CELL DISTRIBUTION WIDTH 14.6 % (11.5-14.0); SEGMENTED NEUTROPHILS % (AUTO) 69.9 % (42-78); TOTAL CELLS COUNTED % (AUTO) 100 %; WHITE BLOOD COUNT 7.8 10^3/uL (4.0-10.5)
[2017-07-29 16:06] LABS: VENOUS BLOOD HCO3 28.3 mmol/L (20-32); VENOUS BLOOD PCO2 45.5 mmHg (35-63); VENOUS BLOOD PH 7.41 (7.30-7.42)
[2017-07-29 16:17] LABS: INTERNATIONAL RATION (INR) 1.03; PARTIAL THROMBOPLASTIN TIME 31.2 SEC (23.5-35.8); PROTHROMBIN TIME 14.2 SEC (11.4-15.4)
[2017-07-29 16:20] LABS: ALANINE AMINOTRANSFERASE 20 U/L (21-72); ALBUMIN 4.4 g/dL (3.5-5.0); ALKALINE PHOSPHATASE 109 U/L (38-126); ANION GAP 12 (5-19); ASPARTATE AMINO TRANSFERASE 27 U/L (17-59); BILIRUBIN,DIRECT 0.5 mg/dL (0.0-0.4); BILIRUBIN,TOTAL 1.3 mg/dL (0.2-1.3); BLOOD UREA NITROGEN 10 mg/dL (7-20); CALCIUM 10.1 mg/dL (8.4-10.2); CARBON DIOXIDE 25 mmol/L (22-30); CHLORIDE 102 mmol/L (98-107); GLUCOSE 114 mg/dL (75-110); LIPASE 112.5 U/L (23-300); POTASSIUM 4.2 mmol/L (3.6-5.0); SODIUM 138.8 mmol/L (137-145); TOTAL PROTEIN 7.6 g/dL (6.3-8.2)
[2017-07-29 16:21] LABS: ACETAMINOPHEN < 10 ug/mL (10-30); ALCOHOL < 10 mg/dL (NONE DETECTED); SALICYLATE < 1.0 mg/dL (2.0-20.0)
--- NOTE | 2017-07-29 16:58 | RADIOLOGY REPORT (SQ) ---
EXAM DESCRIPTION: CT HEAD WITHOUT COMPLETED DATE/TIME: 07/29/2017 4:40 pm REASON FOR STUDY: ams COMPARISON: 03/28/2017. TECHNIQUE: Axial images acquired through the brain without intravenous contrast. Images reviewed wi th bone, brain and subdural windows. Images stored on PACS. All CT scanners at this facility use dose modulation, iterative reconstruction, and/or weight based d osing when appropriate to reduce radiation dose to as low as reasonably achievable (ALARA). [facility]: Dose Right [facility]: CareDose [facility]: Dose Right [facility]: Teradose 4D [facility]: Smart [employer] - [employer] RADIATION DOSE: CT Rad equipment meets quality standard of care and radiation dose reduction techniq ues were employed. CTDIvol: 64.6 mGy. DLP: 1163 mGy-cm.mGy. LIMITATIONS: None. FINDINGS: VENTRICLES: Prominent. CEREBRUM: No masses. No hemorrhage. No midline shift. Areas of low density in the white matter mos t likely due to chronic micro-vascular ischemic change. No evidence for acute infarction. CEREBELLUM: No masses. No hemorrhage. No alteration of density. No evidence for acute infarction. EXTRAAXIAL SPACES: Age-related involutional change. No fluid collections. No masses. ORBITS AND GLOBE: No intra- or extraconal masses. Normal contour of globe without masses. CALVARIUM: No fracture. PARANASAL SINUSES: Fluid in the maxillary sinuses. SOFT TISSUES: No mass or hematoma. OTHER: No other significant finding. IMPRESSION: CHRONIC CHANGES OF ATROPHY AND MICROVASCULAR ISCHEMIA. NO ACUTE PROCESS. EVIDENCE OF ACUTE STROKE: NO. TECHNICAL DOCUMENTATION: JOB ID: [id number] Quality ID # [id number]: Final reports with documentation of one or more dose reduction techniques (e.g., Au tomated exposure control, adjustment of the mA and/or kV according to patient size, use of iterative reconstruction technique) 2010 [employer]- All Rights Reserved
--- NOTE | 2017-07-29 16:59 | RADIOLOGY REPORT (SQ) ---
EXAM DESCRIPTION: CHEST SINGLE VIEW COMPLETED DATE/TIME: 07/29/2017 4:46 pm REASON FOR STUDY: sob COMPARISON: 07/28/2017. NUMBER OF VIEWS: One view. TECHNIQUE: Single frontal radiographic view of the chest acquired. LIMITATIONS: None. FINDINGS: LUNGS AND PLEURA: Patchy density in the right lung base slightly improved. Left lung mena r. MEDIASTINUM AND HILAR STRUCTURES: No masses. Contour normal. HEART AND VASCULAR STRUCTURES: Heart enlarged without failure. Normal vasculature. BONES: No acute findings. HARDWARE: None in the chest. OTHER: No other significant finding. IMPRESSION: HEART ENLARGED WITHOUT FAILURE. SLIGHT IMPROVEMENT IN THE RIGHT BASILAR DENSITY. TECHNICAL DOCUMENTATION: JOB ID: [id number] [employer] - is now [employer]- All Rights Reserved
[2017-07-29] MEDS ORDERED: LEVOFLOXACIN 500 MG TABLET PO ONE (17:48)
[2017-07-29 18:07] LABS: APPEARANCE,URINE CLEAR; BILIRUBIN,URINE NEGATIVE (NEGATIVE); COLOR,URINE YELLOW; GLUCOSE, URINE NEGATIVE (NEGATIVE); KETONES,URINE NEGATIVE (NEGATIVE); LEUKOCYTE ESTERASE,URINE NEGATIVE (NEGATIVE); NITRITE,URINE NEGATIVE (NEGATIVE); PROTEIN,URINE NEGATIVE (NEGATIVE); URINE SPECIFIC GRAVITY 1.004
[2017-07-29 18:20] LABS: URINE AMPHETAMINES SCREEN NEGATIVE; URINE BARBITURATES SCREEN NEGATIVE; URINE BENZODIAZEPINES SCREEN NEGATIVE; URINE COCAINE SCREEN NEGATIVE; URINE MARIJUANA (THC) SCREEN NEGATIVE; URINE METHADONE SCREEN NEGATIVE; URINE PHENCYCLIDINE SCREEN NEGATIVE
[2017-07-29] MEDS: BUSPIRONE HCL 10 MG TABLET PO SCH (18:21)
[2017-07-29] MEDS: DIVALPROEX SODIUM 500 MG TAB.SR.24H PO SCH (18:21)
--- NOTE | 2017-07-29 18:25 | EKG REPORT ---
SEVERITY:- ABNORMAL ECG - ATRIAL FLUTTER NONSPECIFIC IVCD WITH LAD INFERIOR INFARCT, ? ACUTE, CLINICAL CORRELATION NEEDED. BORDERLINE R WAVE PROGRESSION, ANTERIOR LEADS : Confirmed by: Negro Pisano MD 29-Jul-2017 18:25:09
[2017-07-29] MEDS ORDERED: ACETAMINOPHEN 325 MG TABLET PO ONE (20:22)
[2017-07-29] MEDS ORDERED: BUSPIRONE HCL 10 MG TABLET PO SCH (22:00)
--- NOTE | 2017-07-29 23:48 | ER Document Report ---
ED General - General Chief Complaint: Suicidal Ideation Stated Complaint: PHYSC PROBLEM Time Seen by Provider: 07/29/17 14:42 TRAVEL OUTSIDE OF THE [place] IN LAST 30 DAYS: No - HPI Patient complains to provider of: Psychiatric evaluation Notes: Patient coming in please custody at the [place]. Patient going to the police was making statements that he wanted to harm self therefore was placed on IVC paperwork. Patient was brought in for further evaluation. Upon my evaluation patient refusing to answer most questions. When asked why the patient was in the middle of the street patient states that he is 71 years old he can stand straight if he feels like it. When asked the patient want to harm himself initially states no when asked the patient want to harm anybody else patient stated he has. Patient was very aggressive and combative. Upon review the patient's past medical record patient was recently seen in the ER diagnosed with pneumonia. Patient is never had any psychiatric evaluation here. Therefore concern for possible underlying cause such as infection therefore patient was moved from a [facility] area to the main side of the ER. During this movement patient did become aggressive and combative toward staff crying physical restraints and chemical medications to help him with his condition. - Related Data Allergies/Adverse Reactions: No Known Allergies Allergy (Verified 07/06/17 14:02) Past Medical History - Social History Smoking Status: Unknown if Ever Smoked Frequency of alcohol use: unknown Family History: Reviewed & Not Pertinent Patient has suicidal ideation: - Brought in on IVC papers Patient has homicidal ideation: - unknown - Past Medical History Cardiac Medical History: Reports: Hx Congestive Heart Failure, Hx Coronary Artery Disease, Hx Heart Attack, Hx Hypertension, Hx Pulmonary Embolism Pulmonary Medical History: Reports: Hx COPD Endocrine Medical History: Reports: Hx Diabetes Mellitus Type 2 - History of same, but only on medication for short time. 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, Hx Coronary Stent, Hx Pacemaker - Initial device removed for infection; subsequent AICD implant., Hx Tonsillectomy - Immunizations Hx Diphtheria, Pertussis, Tetanus Vaccination: No - >5 YRS Hx Pneumococcal Vaccination: 03/27/11 Review of Systems - Review of Systems Constitutional: No symptoms reported EENT: No symptoms reported Cardiovascular: No symptoms reported Respiratory: No symptoms reported Gastrointestinal: No symptoms reported Genitourinary: No symptoms reported Male Genitourinary: No symptoms reported Musculoskeletal: No symptoms reported Skin: No symptoms reported Hematologic/Lymphatic: No symptoms reported Neurological/Psychological: Suicidal ideation, Other - Combative -: Yes All other systems reviewed and negative Physical Exam - Vital signs Vitals: Temp Pulse Resp BP Pulse Ox 97.9 F 79 21 H 145/85 H 95 07/29/17 14:30 07/29/17 14:30 07/29/17 14:30 07/29/17 14:30 07/29/17 14:30 Interpretation: Normal - General General appearance: Appears well, Alert - HEENT Head: Normocephalic, Atraumatic Eyes: Normal Pupils: PERRL - Respiratory Respiratory status: No respiratory distress Chest status: Nontender Breath sounds: Normal Chest palpation: Normal - Cardiovascular Rhythm: Regular Heart sounds: Normal auscultation Murmur: No - Abdominal Inspection: Normal Distension: No distension Bowel sounds: Normal Tenderness: Nontender Organomegaly: No organomegaly - Back Back: Normal, Nontender - Extremities General upper extremity: Normal inspection, Nontender, Normal color, Normal ROM , Normal temperature General lower extremity: Normal inspection, Nontender, Normal color, Normal ROM , Normal temperature, Normal weight bearing. No: Fransisca's sign - Neurological Neuro grossly intact: Yes Cognition: Normal Orientation: AAOx4 Torrey Coma Scale Eye Opening: Spontaneous Sprakers Coma Scale Verbal: Oriented Tor[place] Coma Scale Motor: Obeys Commands Sprakers Coma Scale Total: 15 Speech: Normal Motor strength normal: LUE, RUE, LLE, RLE Sensory: Normal - Psychological Associated symptoms: Normal affect, Normal mood - Skin Skin Temperature: Warm Skin Moisture: Dry Skin Color: Normal Course - Re-evaluation Re-evalutation: 07/30/17 00:17 Patient's chest x-ray showed improvement of the area concerning for pneumonia. Patient laboratory values not reveal any source of metabolic derangement or infectious etiology that would explain a underlying altered mental status. After laboratory values were returned patient's family member son at bedside states patient has been depressed and sometimes does make suicidal comments. Patient was evaluated by our psychiatric team will put the patient on Depakote and BuSpar. Patient also will continue his Levaquin as prescribed. At this time patient will be placed on IVC paperwork and will be held in ER for for further evaluation in the morning. More likely the patient is feeling better patient will be discharged home - Vital Signs Vital signs: Temp Pulse Resp BP Pulse Ox 97.9 F 79 21 H 145/85 H 95 07/29/17 14:30 07/29/17 14:30 07/29/17 14:30 07/29/17 14:30 07/29/17 14:30 - Laboratory Result Diagrams: 07/29/17 15:39 07/29/17 15:39 Laboratory results interpreted by me: 07/29/17 07/29/17 07/29/17 15:39 15:39 17:40 RDW 14.6 H Glucose 114 H Direct Bilirubin 0.5 H ALT 20 L Urine Urobilinogen 2.0 H Salicylates < 1.0 L Acetaminophen < 10 L Discharge - Discharge Clinical Impression: Suicidal ideation Pneumonia Qualifiers: Pneumonia type: due to unspecified organism Laterality: right Lung location: unspecified part of lung Qualified Code(s): J18.9 - Pneumonia, unspecified organism Depression Qualifiers: Depression Type: unspecified Qualified Code(s): F32.9 - Major depressive disorder, single episode, unspecified Condition: Good Disposition: PSYCH HOSP/UNIT Referrals: MAURICE ORTIZ DO [Primary Care Provider] - Follow up as needed
[2017-07-30 06:41] VITALS: BP 138/80
--- NOTE | 2017-07-30 09:35 | ER Document Report ---
Doctor's Note Notes: 07/30/17 09:34 71-year-old male who presents being found [place] the middle [place] the [place] with IVC paperwork secondary to suicidal ideations. Patient was recently diagnosed with a pneumonia. Family stated that the patient has had a history of depression with some suicidal ideations in the past. CT scan of the head was unremarkable. Labs as recorded. Patient denies any and all chest pain. X-ray of the chest shows a resolving pneumonia. Psychiatric medications were started. Patient is pending psychiatric evaluation. Patient is currently calm and cooperative in no acute distress. We are awaiting psychiatric evaluation. 07/30/17 10:24 Psychiatry is seen and evaluated the patient. They are very comfortable with the patient going home at this time. Son is very comfortable with the patient going home at this time. Patient denies any suicidal ideations at this time. They have set up an outpatient psychiatric referral to S. They have started the patient on both Depakote and BuSpar. Patient is very comfortable with this plan and states he is happy to go home at this time. He still denies that he was trying to hurt himself. The psychiatry/ psychology team does not feel that the patient warrants IVC at this time. They have requested recinding the IVC paperwork. Patient will be discharged home at this time.
--- NOTE | 2017-07-30 09:53 | PSYCHOLOGICAL NOTE ---
Psych Note - Psych Note Psych Note: Reason for Consult: IVC Consent Permissions: son at bedside per patient request Patient brought in by [facility] John delacruz. Patient under IVC paperwork. Patient refuses to speak to myself about why he is here. [place] in room but will not answer why patient was brought in either, except that he is on papers. Patient began yelling and refusing to answer any questions about why he is here or any history. Clinician spoke with deputy Lopez, petitioner of IVC paperwork. He disclosed the patient was walking down because [address] and was [address] Patient was walking down the middle of the highway with his walker. Upon arrival patient refused to speak to anybody other than saying "I want to ...I am going to kill myself." Disclosed the patient was very uncooperative however was directable. Patient is noted to have a head CT from March 2017 that identifies prominent ventricles with chronic atrophy and microvascular ischemia change. Patient's son disclosed the patient frequently makes comments that he wants to when he is upset. He did continue to state "he does have depression but nobody will help him." Patient's son was not concerned the patient was walking down the highway stating that this common occurrence. 311 (F32.9) unspecified depressive disorder 799.59 (R41.9) unspecified neurocognitive disorder; possible vascular Impression\\plan: Patient is recommended to continue under IVC. Patient currently is unable/unwilling to engage with clinician. Patient did state to [place] Officer John that he wanted to and he was going to kill himself. Patient's son identifies the patient does suffer from depression. Behavior health team medication recommendations per [facility] contracted psychiatrist included Depakote 500 mg twice daily and BuSpar 5 mg every morning with BuSpar 10 mg nightly. Attending physicians are also recommended to take into account possible dementia when prescribing medications; it is recommended the patient does not receive any antipsychotics or benzodiazepines as this can increase agitation, confusion and psychosis in this population. Patient will be reevaluated. Dr. Ball was consulted and the care management this patient; attending physician in agreement with her conditions and disposition.
[2017-07-30] MEDS: DIVALPROEX SODIUM 500 MG TAB.SR.24H PO SCH (10:01)
[2017-07-30] MEDS: BUSPIRONE HCL 10 MG TABLET PO SCH (10:01)
--- NOTE | 2017-07-30 10:04 | PSYCHOLOGICAL NOTE ---
Psych Note - Psych Note Psych Note: Reason for Consult: IVC Consent Permissions: son at bedside per patient request Patient smiles and openly engages clinician upon entering room. Patient states he is feeling much better. Patient stated that he was feeling stressed because he currently has to do all the work to bring in financial support; "my son has a bad back so I have to do everything." He continued to disclose that other than his side hurting a little bit he is feeling really good. Patient is alert and orientated to person, place, time and circumstance. Mood is euthymic with congruent affect overly engaging with clinician smiling and laughing. Patient denies current suicidal and homicidal ideation. As evidenced by delusions are absent behaviors congruent with intact reality based presentation i.e. organized, linear, rational thinking. Eye contact was well- maintained. Conversational speech was within normal rate, tone and prosody. Intellectual abilities appear to be within the average range. Attention and concentration are good. Insight, judgment, impulse control are currently good. Patient is noted to have a new head CT conducted yesterday that confirms findings identified in Mar 2017;prominent ventricles with chronic atrophy and microvascular ischemia change. 311 (F32.9) unspecified depressive disorder 799.59 (R41.9) unspecified neurocognitive disorder; possible vascular Impression\\plan: Patient is recommended to rescind IVC is considered psychiatrically clear. Patient no longer meets IVC criteria per [place] GS 122C. Patient denies current suicidal and homicidal ideation. Delusions are absent behaviors congruent with intact reality based presentation i.e. organized, linear, rational thinking. Patient endorses being stressed and having a bad day previously from psychosocial stressors consisting of financial and caring for everyone in the home. Behavior health team medication recommendations per [facility] contracted psychiatrist included Depakote 500 mg twice daily and BuSpar 5 mg every morning with BuSpar 10 mg nightly. Attending physicians are also recommended to take into account possible dementia when prescribing medications ; it is recommended the patient does not receive any antipsychotics or benzodiazepines as this can increase agitation, confusion and psychosis in this population. Dr. Ball was consulted and the care management this patient; attending physician in agreement with her conditions and disposition
[2017-07-30] MEDS ORDERED: ACETAMINOPHEN 325 MG TABLET PO ONE (10:21)
== END 2017-07-30 10:45 | disposition home or self-care (01) ==
LOC: ER 14:23
DX: R45.851 Suicidal ideations (principal); J18.9 Pneumonia, unspecified organism; F32.9 Major depressive disorder, single episode, unspecified; R41.9 Unspecified symptoms and signs involving cognitive functions and awareness; I50.9 Heart failure, unspecified; I25.10 Atherosclerotic heart disease of native coronary artery without angina pectoris; E78.00 Pure hypercholesterolemia, unspecified; J44.9 Chronic obstructive pulmonary disease, unspecified; E11.9 Type 2 diabetes mellitus without complications; I25.2 Old myocardial infarction; Z86.711 Personal history of pulmonary embolism; Z95.810 Presence of automatic (implantable) cardiac defibrillator
CPT/HCPCS: 93005; 99285; 96372; 36415; 80307 ×4; 83690; 85025; 85610; 85730; 80053; 81001; 84484; 82803; 71045; 70450; 93010; A9270 ×7; J1200; J1630

== ENCOUNTER 2017-08-05 14:08 | Emergency (ER) | payer MEDICARE ==
--- NOTE | 2017-08-05 15:44 | ER Document Report ---
ED Medical Screen (RME) - General Chief Complaint: Breathing Difficulty Stated Complaint: MEDICATION REFILL Time Seen by Provider: 08/05/17 15:30 Mode of Arrival: Ambulatory Information source: Patient Notes: 71-year-old male who is intermittently on 2 L nasal cannula presents with complaints of productive cough shortness of breath. Patient notes he was diagnosed with pneumonia 3 weeks ago and was placed on antibiotics for 5 days I have greeted and performed a rapid initial assessment of this patient. A comprehensive ED assessment and evaluation of the patient, analysis of test results and completion of the medical decision making process will be conducted by additional ED providers. PHYSICAL EXAMINATION: GENERAL: Chronically ill-appearing male HEAD: Atraumatic, normocephalic. EYES: Pupils equal round extraocular movements intact, conjunctiva are normal. ENT: Nares patent NECK: Normal range of motion LUNGS: Wheezing noted Musculoskeletal: Normal range of motion NEUROLOGICAL: Normal speech, normal gait. PSYCH: Normal mood, normal affect. SKIN: Warm, Dry, normal turgor, no rashes or lesions noted. TRAVEL OUTSIDE OF THE [place] IN LAST 30 DAYS: No - Related Data Allergies/Adverse Reactions: No Known Allergies Allergy (Verified 08/05/17 14:09) Past Medical History - Social History Chew tobacco use (# tins/day): No Frequency of alcohol use: Rare Drug Abuse: None - Past Medical History Cardiac Medical History: Reports: Hx Congestive Heart Failure, Hx Coronary Artery Disease, Hx Heart Attack, Hx Hypertension, Hx Pulmonary Embolism Pulmonary Medical History: Reports: Hx COPD Endocrine Medical History: Reports: Hx Diabetes Mellitus Type 2 - History of same, but only on medication for short time. Renal/ Medical History: Denies: Hx Peritoneal Dialysis Musculoskeltal Medical History: Reports Hx Arthritis Past Surgical History: Reports: Hx Cardiac Catheterization, Hx Cardiac Surgery - Pacemaker-removed due to infection, Hx Coronary Stent, Hx Pacemaker - Initial device removed for infection; subsequent AICD implant., Hx Tonsillectomy - Immunizations Hx Diphtheria, Pertussis, Tetanus Vaccination: No - >5 YRS Physical Exam - Vital signs Vitals: Temp Pulse Resp BP Pulse Ox 98.5 F 68 20 150/77 H 92 08/05/17 14:23 08/05/17 14:23 08/05/17 14:23 08/05/17 14:23 08/05/17 14:23 Course - Vital Signs Vital signs: Temp Pulse Resp BP Pulse Ox 98.5 F 68 20 150/77 H 92 08/05/17 14:23 08/05/17 14:23 08/05/17 14:23 08/05/17 14:23 08/05/17 14:23
[2017-08-05] MEDS ORDERED: IPRATROPIUM/ALBUTEROL 0.5-2.5 MG/3 ML AMPUL NEB ONE (15:45)
[2017-08-05 16:40] LABS: ABSOLUTE BASOPHILS # (AUTO) 0.1 10^3/uL (0.0-0.2); ABSOLUTE EOSINOPHILS # (AUTO) 0.3 10^3/uL (0.0-0.6); ABSOLUTE LYMPHOCYTES (AUTO) 1.3 10^3/uL (0.5-4.7); ABSOLUTE MONOCYTES (AUTO) 0.7 10^3/uL (0.1-1.4); ABSOLUTE NEUT (AUTO) 5.6 10^3/uL (1.7-8.2); BASOPHILS % (AUTO) 1.2 % (0-2); EOSINOPHILS % (AUTO) 4.1 % (0-6); HEMATOCRIT 44.7 % (37.9-51.0); LYMPHOCYTES % (AUTO) 15.8 % (13-45); MEAN CORPUSCULAR HEMOGLOBIN 32.3 pg (27.0-33.4); MEAN CORPUSCULAR HGB CONC 33.5 g/dL (32.0-36.0); MEAN CORPUSCULAR VOLUME 96 fl (80-97); MONOCYTES % (AUTO) 8.6 % (3-13); PLATELET COUNT 241 10^3/uL (150-450); RED BLOOD COUNT 4.65 10^6/uL (4.35-5.55); RED CELL DISTRIBUTION WIDTH 14.7 % (11.5-14.0); SEGMENTED NEUTROPHILS % (AUTO) 70.3 % (42-78); TOTAL CELLS COUNTED % (AUTO) 100 %; WHITE BLOOD COUNT 7.9 10^3/uL (4.0-10.5)
[2017-08-05 17:02] LABS: ALBUMIN 4.3 g/dL (3.5-5.0); ANION GAP 9 (5-19); BILIRUBIN,DIRECT 0.6 mg/dL (0.0-0.4); BILIRUBIN,TOTAL 0.8 mg/dL (0.2-1.3); CALCIUM 9.3 mg/dL (8.4-10.2); CARBON DIOXIDE 32 mmol/L (22-30); CHLORIDE 100 mmol/L (98-107); CREATINE KINASE 55 U/L (55-170); GLUCOSE 77 mg/dL (75-110); SODIUM 140.8 mmol/L (137-145); TOTAL PROTEIN 7.9 g/dL (6.3-8.2)
[2017-08-05 17:10] LABS: POTASSIUM 4.4 mmol/L (3.6-5.0)
[2017-08-05 17:11] LABS: ASPARTATE AMINO TRANSFERASE 30 U/L (17-59); BLOOD UREA NITROGEN 17 mg/dL (7-20)
[2017-08-05 17:12] LABS: ALANINE AMINOTRANSFERASE 8 U/L (21-72); ALKALINE PHOSPHATASE 84 U/L (38-126)
[2017-08-05 17:13] LABS: APPEARANCE,URINE CLEAR; BILIRUBIN,URINE NEGATIVE (NEGATIVE); COLOR,URINE STRAW; GLUCOSE, URINE NEGATIVE (NEGATIVE); KETONES,URINE NEGATIVE (NEGATIVE); LEUKOCYTE ESTERASE,URINE NEGATIVE (NEGATIVE); NITRITE,URINE NEGATIVE (NEGATIVE); PROTEIN,URINE NEGATIVE (NEGATIVE); URINE SPECIFIC GRAVITY 1.006; UROBILINOGEN,URINE NEGATIVE mg/dL (<2.0)
[2017-08-05 17:14] LABS: CREATINE KINASE MB 1.33 ng/mL (<4.55); TROPONIN I 0.018 ng/mL
--- NOTE | 2017-08-05 17:47 | RADIOLOGY REPORT (SQ) ---
EXAM DESCRIPTION: CHEST SINGLE VIEW COMPLETED DATE/TIME: 08/05/2017 5:36 pm REASON FOR STUDY: sob, recent pneumonia COMPARISON: Chest films 05/31/2017, 07/28/2017, 07/29/2017 EXAM PARAMETERS: NUMBER OF VIEWS: One view. TECHNIQUE: Single frontal radiographic view of the chest acquired. RADIATION DOSE: NA LIMITATIONS: None. FINDINGS: LUNGS AND PLEURA: Small right pleural effusion in the lateral costophrenic sulcus, slightl y more prominent than on 07/29/2017. There is minimal patchy right basilar airspace disease atelectasis versus pneumonia. This is similar compared to 07/29/2017. Left lung well inflated and clear. MEDIASTINUM AND HILAR STRUCTURES: No masses. Contour normal. HEART AND VASCULAR STRUCTURES: Stable massive cardiomegaly BONES: No acute findings. HARDWARE: None in the chest. OTHER: No other significant finding. IMPRESSION: Small right pleural effusion, increased compared to 07/29/2017 Patchy right basilar/lower perihilar airspace disease unchanged from 07/29/2017 TECHNICAL DOCUMENTATION: JOB ID: [id number] [employer]- All Rights Reserved
--- NOTE | 2017-08-05 19:16 | ER Document Report ---
ED General - General Chief Complaint: Breathing Difficulty Stated Complaint: MEDICATION REFILL Time Seen by Provider: 08/05/17 15:30 Mode of Arrival: Ambulatory Notes: Patient is a 71-year-old male past medical history of hypertension, hyperlipidemia, who presents with 1 week of progressive worsening cough, sputum production or shortness of breath. Patient was seen this emergency department on the second, diagnosed with pneumonia at that time, treated as an outpatient with levofloxacin. Patient states that initially felt his symptoms are improving but notes that now they seem to be progressively worsening. His main complaint is a constant shortness of breath, worsened by exertion. Nothing improves that symptom. He denies any history of similar symptoms in the past. He has not had any fever, vomiting, diarrhea, headache or neck pain. He denies any ongoing chest pain. No history of DVT or pulmonary embolus. He does not take any form of anticoagulation. He has been unable to get in to see his doctor to follow-up regarding today's concerns. TRAVEL OUTSIDE OF THE [place] IN LAST 30 DAYS: No - Related Data Allergies/Adverse Reactions: No Known Allergies Allergy (Verified 08/05/17 14:09) Past Medical History - General Information source: Patient - Social History Smoking Status: Former Smoker Chew tobacco use (# tins/day): No Frequency of alcohol use: Rare Drug Abuse: None Lives with: Family Family History: Reviewed & Not Pertinent Patient has suicidal ideation: No Patient has homicidal ideation: No - Past Medical History Cardiac Medical History: Reports: Hx Congestive Heart Failure, Hx Coronary Artery Disease, Hx Heart Attack, Hx Hypertension, Hx Pulmonary Embolism Pulmonary Medical History: Reports: Hx COPD Endocrine Medical History: Reports: Hx Diabetes Mellitus Type 2 - History of same, but only on medication for short time. Renal/ Medical History: Denies: Hx Peritoneal Dialysis Musculoskeltal Medical History: Reports Hx Arthritis Past Surgical History: Reports: Hx Cardiac Catheterization, Hx Cardiac Surgery - Pacemaker-removed due to infection, Hx Coronary Stent, Hx Pacemaker - Initial device removed for infection; subsequent AICD implant., Hx Tonsillectomy - Immunizations Hx Diphtheria, Pertussis, Tetanus Vaccination: No - >5 YRS Hx Pneumococcal Vaccination: 03/27/11 Review of Systems - Review of Systems Notes: Constitutional: Negative for fever. HENT: Negative for sore throat. Eyes: Negative for visual changes. Cardiovascular: Negative for chest pain. Respiratory: Positive for shortness of breath. Gastrointestinal: Negative for abdominal pain, vomiting or diarrhea. Genitourinary: Negative for dysuria. Musculoskeletal: Negative for back pain. Skin: Negative for rash. Neurological: Negative for headaches, weakness or numbness. 10 point ROS negative except as marked above and in HPI. Physical Exam - Vital signs Vitals: Temp Pulse Resp BP Pulse Ox 98.5 F 68 20 150/77 H 92 08/05/17 14:23 08/05/17 14:23 08/05/17 14:23 08/05/17 14:23 08/05/17 14:23 Interpretation: Hypoxic Notes: PHYSICAL EXAMINATION: GENERAL: Well-appearing, well-nourished and in no acute distress. HEAD: Atraumatic, normocephalic. EYES: Pupils equal round and reactive to light, extraocular movements intact, sclera anicteric, conjunctiva are normal. ENT: nares patent, oropharynx clear without exudates. Moderately dry mucous membranes. NECK: Normal range of motion, supple without lymphadenopathy LUNGS: Slightly diminished at the bases bilaterally. No wheezes or rales. No tachypnea or distress. HEART: Regular rate and rhythm without murmurs ABDOMEN: Soft, nontender, normoactive bowel sounds. No guarding, no rebound. No masses appreciated. EXTREMITIES: Normal range of motion, no pitting or edema. No cyanosis. NEUROLOGICAL: No focal neurological deficits. Moves all extremities spontaneously and on command. PSYCH: Normal mood, normal affect. SKIN: Warm, Dry, normal turgor, no rashes or lesions noted. Course - Re-evaluation Re-evalutation: 08/05/17 19:14 Patient presents with progressively worsening cough, sputum production and dyspnea now worsened from prior. Of note, his vital signs today do show hypoxia that was not present during his most previous visits on the second and third of this month. On assessment patient is overall nontoxic appearance, conversant without any apparent difficulty, very pleasant on contact. Lung exam overall unremarkable with exception of mildly diminished breath sounds at the bases bilaterally slightly worse on the right. Differential diagnosis includes a pneumonia that has failed to respond to outpatient antibiotics, possible development of an empyema, pulmonary embolus, less likely pleural effusion in the setting of CHF. Primary concern is that the patient does not have significant symptoms to suggest an acute infectious etiology as he has no leukocytosis, no fever, no tachycardia did not have these findings either on the second when he was first diagnosed with pneumonia. Moreover he has failed to respond to an appropriate outpatient antibiotic. Patient is morbidly obese, sedentary, and is somewhat high risk for an acute pulmonary embolus which could present with a persistent pleural effusion, hypoxia and tachypnea. However patient does not have any evidence of right heart strain on his EKG and does not have any tachycardia which would go against the diagnosis of PE. However, I believe a CT of the chest is indicated at this point to clarify whether or not the patient has an empyema and also to definitively exclude an acute pulmonary embolus. 08/05/17 20:17 CTA chest does not demonstrate any evidence of an acute pulmonary embolus, no evidence of an acute pneumonia in the right low base although there is a notable effusion as well as associated atelectasis. Anticipate at this point it is likely secondary to the patient's underlying CHF given his elevated proBNP as well as his history of CHF in the past. Will initiate a short course of furosemide and encouraged close outpatient follow-up. Will not reinitiate antibiotics at this time as this does not appear to be infectious in etiology. At this time will discharge with return precautions and follow-up recommendations. Verbal discharge instructions given a the bedside and opportunity for questions given. Medication warnings reviewed. Patient is in agreement with this plan and has verbalized understanding of return precautions and the need for primary care follow-up in the next 24-72 hours. - Vital Signs Vital signs: Temp Pulse Resp BP Pulse Ox 98.5 F 68 20 138/75 H 94 08/05/17 14:23 08/05/17 14:23 08/05/17 21:00 08/05/17 20:31 08/05/17 20:31 - Laboratory Result Diagrams: 08/05/17 16:20 08/05/17 16:20 Laboratory results interpreted by me: 08/05/17 08/05/17 08/05/17 16:20 16:20 16:20 RDW 14.7 H Carbon Dioxide 32 H Direct Bilirubin 0.6 H ALT 8 L NT-Pro-B Natriuret Pep 2120 H - Diagnostic Test Radiology reviewed: Reports reviewed - EKG Interpretation by Me Additional EKG results interpreted by me: 08/05/17 20:25 Atrial fibrillation. Rate 66. No ST elevations or depressions. QTC 516 Discharge - Discharge Clinical Impression: Obesity hypoventilation syndrome, Pleural effusion, right, Acute on chronic combined systolic and diastolic heart failure, Shortness of breath Condition: Fair Disposition: HOME, SELF-CARE Additional Instructions: The CT scan of your chest shows that there is some fluid in between the sac that surrounds her lung and the lung itself call the pleural effusion. This may be related to underlying congestive heart failure. CT scan your labs do not suggest a recurrent pneumonia. Please take furosemide 20 mg daily for the next 1 week. This should hopefully help reduce the fluid in your lung. Return sooner if you develop worsening shortness of breath, pass out, have chest pain, fever greater than 100.4F, or have any other symptoms that are worrisome to you. Please follow-up closely with your primary care doctor as scheduled. Prescriptions: Furosemide [Lasix 20 mg Tablet] 20 mg PO BID #15 tablet Referrals: MAURICE ORTIZ DO [Primary Care Provider] - Follow up in 3-5 days
--- NOTE | 2017-08-05 20:11 | RADIOLOGY REPORT (SQ) ---
EXAM DESCRIPTION: CTA CHEST COMPLETED DATE/TIME: 08/05/2017 7:58 pm REASON FOR STUDY: hypoxia, non-resolving infiltrate, eval pe COMPARISON: 08/10/2016. TECHNIQUE: CT scan of the chest performed using helical scanning technique with dynamic intravenous contrast injection. Images reviewed with lung, soft tissue and bone windows. Reconstructed coronal and sagittal MPR images reviewed. Additional 3 dimensional post-processing performed to develop Maximal Intensity Projection images ([place] P). All images stored on PACS. All CT scanners at this facility use dose modulation, iterative reconstruction, and/or weight based d osing when appropriate to reduce radiation dose to as low as reasonably achievable (ALARA). [facility]: Dose Right [facility]: CareDose [facility]: Dose Right [facility]: Teradose 4D [facility]: [employer] CONTRAST TYPE AND DOSE: contrast/concentration: Isovue 370.00 mg/ml; Total Contrast Delivered: 86.0 ml; Total Saline Delivered: 110.0 ml Contrast bolus optimized for the pulmonary arteries. Not diagnostic for the aorta. RENAL FUNCTION: BUN 17 creatinine 0.89. RADIATION DOSE: CT Rad equipment meets quality standard of care and radiation dose reduction techniq ues were employed. CTDIvol: 33.9 - 41.3 mGy. DLP: 1281 mGy-cm. . LIMITATIONS: None. FINDINGS: LUNGS AND PLEURA: Moderate right pleural effusion. Scattered atelectasis in the right bas e. Chronic interstitial changes. AORTA AND GREAT VESSELS: No aneurysm. Contrast bolus not optimized for the aorta. HEART: No pericardial effusion. No significant coronary artery calcifications. PULMONARY ARTERIES: No emboli visualized in the main pulmonary arteries or the segmental branches. HILAR AND MEDIASTINAL STRUCTURES: No identified masses or abnormal nodes. HARDWARE: None in the chest. UPPER ABDOMEN: No significant findings. Limited exam. THYROID AND OTHER SOFT TISSUES: No masses. No adenopathy. BONES: No acute or significant finding. 3D MIPS: Confirm above findings. OTHER: No other significant finding. IMPRESSION: 1. NORMAL CTA OF THE CHEST. NO PULMONARY EMBOLI. 2. MODERATE RIGHT PLEURAL EFFUSION. PATCHY ATELECTASIS IN THE RIGHT BASE. COMMENT: Quality ID # [id number]: Final reports with documentation of one or more dose reduction techniques (e.g., Automated exposure control, adjustment of the mA and/or kV according to patient size, use of iterative reconstruction technique) TECHNICAL DOCUMENTATION: JOB ID: [id number] [employer]- All Rights Reserved
[2017-08-05] MEDS ORDERED: FUROSEMIDE INJ/PF 40 MG/4 ML SDV IV ONE (20:16)
[2017-08-05 21:16] VITALS: BP 138/75
--- NOTE | 2017-08-05 22:07 | EKG REPORT ---
SEVERITY:- ABNORMAL ECG - ATRIAL FLUTTER/FIBRILLATION, A-RATE 234 NONSPECIFIC IVCD WITH LAD INFERIOR INFARCT, AGE INDETERMINATE ANTERIOR INFARCT, AGE INDETERMINATE : Confirmed by: Farzana Still 05-Aug-2017 22:06:08
== END 2017-08-05 21:16 | disposition home or self-care (01) ==
LOC: ER 14:08
DX: I11.0 Hypertensive heart disease with heart failure (principal); I50.43 Acute on chronic combined systolic (congestive) and diastolic (congestive) heart failure; E66.01 Morbid (severe) obesity due to excess calories; Z68.39 Body mass index [BMI] 39.0-39.9, adult; J90 Pleural effusion, not elsewhere classified; J98.11 Atelectasis; J44.9 Chronic obstructive pulmonary disease, unspecified; R05 Cough; R06.89 Other abnormalities of breathing; R09.02 Hypoxemia; I48.91 Unspecified atrial fibrillation; I25.10 Atherosclerotic heart disease of native coronary artery without angina pectoris; E11.9 Type 2 diabetes mellitus without complications; Z95.810 Presence of automatic (implantable) cardiac defibrillator; Z87.891 Personal history of nicotine dependence; Z87.01 Personal history of pneumonia (recurrent)
CPT/HCPCS: 93005; 94640; 99285; 96374; 36415; 87040; 82553; 82550; 85025; 80053; 81001; 84484; 83880; 71045; 71275; 93010; J1940; A9270; J7620

== ENCOUNTER 2017-12-16 15:46 | Inpatient (IN) | payer MEDICARE, MEDICAID ==
[2017-12-16 17:03] LABS: ABSOLUTE EOSINOPHILS # (AUTO) 0.3 10^3/uL (0.0-0.6); ABSOLUTE LYMPHOCYTES (AUTO) 1.4 10^3/uL (0.5-4.7); ABSOLUTE MONOCYTES (AUTO) 0.4 10^3/uL (0.1-1.4); ABSOLUTE NEUT (AUTO) 2.1 10^3/uL (1.7-8.2); EOSINOPHILS % (AUTO) 7.7 % (0-6); HEMATOCRIT 25.8 % (37.9-51.0); HEMOGLOBIN 8.4 g/dL (13.5-17.0); LYMPHOCYTES % (AUTO) 32.7 % (13-45); MEAN CORPUSCULAR HEMOGLOBIN 29.2 pg (27.0-33.4); MEAN CORPUSCULAR HGB CONC 32.8 g/dL (32.0-36.0); MEAN CORPUSCULAR VOLUME 89 fl (80-97); PLATELET COUNT 163 10^3/uL (150-450); RED CELL DISTRIBUTION WIDTH 16.8 % (11.5-14.0); SEGMENTED NEUTROPHILS % (AUTO) 49.6 % (42-78); TOTAL CELLS COUNTED % (AUTO) 100 %; WHITE BLOOD COUNT 4.2 10^3/uL (4.0-10.5)
--- NOTE | 2017-12-16 17:24 | RADIOLOGY REPORT (SQ) ---
EXAM DESCRIPTION: CHEST SINGLE VIEW COMPLETED DATE/TIME: 12/16/2017 5:01 pm REASON FOR STUDY: Short of breath with swollen ankles COMPARISON: 08/05/2017. NUMBER OF VIEWS: One view. TECHNIQUE: Single frontal radiographic view of the chest acquired. LIMITATIONS: None. FINDINGS: LUNGS AND PLEURA: Diffuse vascular congestion. Moderately large left pleural effusion. P robable small right pleural effusion. MEDIASTINUM AND HILAR STRUCTURES: No masses or contour abnormality. HEART AND VASCULATURE: Cardiac enlargement. Vascular congestion. BONES: No acute findings. HARDWARE: Interval cardiac surgery and placement of defibrillator. Sternotomy wires, markers, and at rial clip. OTHER: No other significant finding. IMPRESSION: INTERVAL CARDIAC SURGERY AND PLACEMENT OF DEFIBRILLATOR. CARDIOMEGALY WITH VASCULAR CON GESTION AND MODERATELY LARGE LEFT PLEURAL EFFUSION. TECHNICAL DOCUMENTATION: JOB ID: [id number] [employer]- All Rights Reserved Reading location - IP/workstation name: [email or web address]
[2017-12-16 17:31] LABS: TROPONIN I 0.03 ng/mL
--- NOTE | 2017-12-16 18:07 | ER Document Report ---
ED General - General Chief Complaint: Dizziness Stated Complaint: BACK PAIN Time Seen by Provider: 12/16/17 16:09 Notes: Patient brought in by EMS and says that he has been feeling lightheaded today. He can walk but feels he is having problems with his balance. Patient says that his second concern is that his feet and legs are swelling, feet are always like this, but the hands only recently started swelling. Third, patient says that he is feeling more short of breath today than usual. He is on home O2 at 3 L all the time. Denies any chest pains. Patient had coronary bypass surgery with insertion of a defibrillator in mid September, at [facility]. He did receive transfusions while he was in that facility. TRAVEL OUTSIDE OF THE [place] IN LAST 30 DAYS: No - Related Data Allergies/Adverse Reactions: No Known Allergies Allergy (Verified 08/05/17 14:09) Past Medical History - Social History Smoking Status: Unknown if Ever Smoked Family History: Reviewed & Not Pertinent Patient has suicidal ideation: No Patient has homicidal ideation: No - Past Medical History Cardiac Medical History: Reports: Hx Congestive Heart Failure, Hx Coronary Artery Disease, Hx Heart Attack, Hx Hypertension, Hx Pulmonary Embolism Pulmonary Medical History: Reports: Hx COPD Endocrine Medical History: Reports: Hx Diabetes Mellitus Type 2 - History of same, but only on medication for short time. Musculoskeltal Medical History: Reports Hx Arthritis Past Surgical History: Reports: Hx Cardiac Catheterization, Hx Cardiac Surgery - Pacemaker-removed due to infection, Hx Coronary Stent, Hx Pacemaker - Initial device removed for infection; subsequent AICD implant., Hx Tonsillectomy - Immunizations Hx Diphtheria, Pertussis, Tetanus Vaccination: No - >5 YRS Hx Pneumococcal Vaccination: 03/27/11 Review of Systems - Review of Systems Notes: REVIEW OF SYSTEMS: CONSTITUTIONAL : Denies fever. EENT: Denies eye, ear, nose or mouth or throat pain or other symptoms. CARDIOVASCULAR: Denies chest pain. Swelling of feet and ankles which is a chronic problem. Notes hand swelling in the last few days which is new. RESPIRATORY: See HPI. GASTROINTESTINAL: Denies abdominal pain or nausea, vomiting, or diarrhea. Denies blood in any of his bowel movements and has not had any black, tarry looking stools. GENITOURINARY: Denies difficulty or painful urinating, urinary frequency, blood in urine. MUSCULOSKELETAL: Has chronic back and neck pain. Denies joint pain or swelling. SKIN: Denies rash or skin lesions. NEUROLOGICAL: Denies LOC or altered mental status. Denies headache. Denies sensory loss or motor deficits. ALL OTHER SYSTEMS REVIEWED AND NEGATIVE. Physical Exam - Vital signs Vitals: Resp BP Pulse Ox 13 131/71 H 100 12/16/17 16:05 12/16/17 16:05 12/16/17 16:05 - Notes Notes: PHYSICAL EXAMINATION: GENERAL: Well-appearing, in no acute distress. Vital signs essentially normal. HEAD: Atraumatic, normocephalic. EYES: Pupils equal round and reactive to light, extraocular movements intact. ENT: oropharynx clear without exudates. Moist mucous membranes. NECK: Normal range of motion, supple. LUNGS: Breath sounds clear but decreased bilaterally. HEART: Regular rate and rhythm without murmurs. Midline scar from recent CABG. Pacemaker in right upper chest in front of the right shoulder joint. ABDOMEN: Soft, nontender. No guarding or rebound. No masses. BACK: No tenderness throughout entire back. EXTREMITIES: Normal range of motion without pain. NEUROLOGICAL: Normal speech, can stand. Normal sensory, motor, and reflex exams. Awake, alert, and oriented x3. PSYCH: Normal mood, normal affect. SKIN: Warm, dry, no rashes. Course - Vital Signs Vital signs: Temp Pulse Resp BP Pulse Ox 98.8 F 15 131/71 H 99 12/16/17 17:05 12/16/17 16:06 12/16/17 16:05 12/16/17 16:06 - Laboratory Result Diagrams: 12/16/17 16:40 12/16/17 16:40 Laboratory results interpreted by me: 12/16/17 12/16/17 12/16/17 16:40 16:40 16:40 RBC 2.90 L Hgb 8.4 L Hct 25.8 L RDW 16.8 H Eosinophils % 7.7 H Sodium 147.0 H Carbon Dioxide 40 H* BUN 21 H Creatinine 1.60 H Est GFR ( Amer) 52 L Est GFR (Non-Af Amer) 43 L Direct Bilirubin 0.5 H ALT 19 L NT-Pro-B Natriuret Pep 5480 H Albumin 2.9 L Urine Blood 12/16/17 18:12 RBC Hgb Hct RDW Eosinophils % Sodium Carbon Dioxide BUN Creatinine Est GFR ( Amer) Est GFR (Non-Af Amer) Direct Bilirubin ALT NT-Pro-B Natriuret Pep Albumin Urine Blood SMALL H - Diagnostic Test Radiology reviewed: Image reviewed, Reports reviewed - Chest x-ray shows recent cardiac surgery with placement of defibrillator. Cardiomegaly with vascular congestion. Moderately large left pleural effusion, not present on last chest x -rays here. - EKG Interpretation by Me Rate: Normal - AV dual paced complexes do not trust going on Discharge - Discharge Clinical Impression: Dyspnea, Pleural effusion, left, Pulmonary vascular congestion, Anemia Condition: Stable Disposition: ADMITTED INPATIENT Admitting Provider: Hospitalist Unit Admitted: IMCU Referrals: MAURICE ORTIZ DO [Primary Care Provider] - Follow up as needed
[2017-12-16 18:14] LABS: ALBUMIN 2.9 g/dL (3.5-5.0); BLOOD UREA NITROGEN 21 mg/dL (7-20); CHLORIDE 100 mmol/L (98-107); GLUCOSE 80 mg/dL (75-110); POTASSIUM 3.7 mmol/L (3.6-5.0); TOTAL PROTEIN 6.6 g/dL (6.3-8.2)
[2017-12-16 18:15] LABS: ALANINE AMINOTRANSFERASE 19 U/L (21-72); ALKALINE PHOSPHATASE 81 U/L (38-126); ASPARTATE AMINO TRANSFERASE 19 U/L (17-59); BILIRUBIN,DIRECT 0.5 mg/dL (0.0-0.4); BILIRUBIN,TOTAL 0.7 mg/dL (0.2-1.3); CALCIUM 8.4 mg/dL (8.4-10.2)
[2017-12-16 18:21] LABS: ANION GAP 7 (5-19)
[2017-12-16 18:24] LABS: CARBON DIOXIDE 40 mmol/L (22-30)
[2017-12-16 18:34] LABS: APPEARANCE,URINE CLEAR; BILIRUBIN,URINE NEGATIVE (NEGATIVE); COLOR,URINE YELLOW; GLUCOSE, URINE NEGATIVE (NEGATIVE); KETONES,URINE NEGATIVE (NEGATIVE); LEUKOCYTE ESTERASE,URINE NEGATIVE (NEGATIVE); NITRITE,URINE NEGATIVE (NEGATIVE); PROTEIN,URINE NEGATIVE (NEGATIVE); URINE SPECIFIC GRAVITY 1.011; UROBILINOGEN,URINE NEGATIVE mg/dL (<2.0)
[2017-12-16] MEDS ORDERED: ENALAPRILAT DIHYDRATE INJ/PF 1.25 MG/1 ML SDV IV PRN (19:13)
[2017-12-16] MEDS ORDERED: MAGNESIUM HYDROXIDE SUSP 30 ML UDCUP PO PRN (19:13)
[2017-12-16] MEDS ORDERED: MAG HYDROX/AL HYDROX/SIMETH SUSP 30 ML UDCUP PO PRN (19:13)
[2017-12-16] MEDS ORDERED: ACETAMINOPHEN 325 MG TABLET PO PRN (19:13)
[2017-12-16] MEDS ORDERED: NITROGLYCERIN 5 MG (0.2 MG/HR) PATCH.TD24 TD SCH (19:15)
[2017-12-16] MEDS ORDERED: OXYCODONE-ACETAMINOPHEN 5-325 MG TABLET PO ONE (19:21)
[2017-12-16 20:00] LABS: URINE AMPHETAMINES SCREEN NEGATIVE; URINE BARBITURATES SCREEN NEGATIVE; URINE BENZODIAZEPINES SCREEN NEGATIVE; URINE COCAINE SCREEN NEGATIVE; URINE MARIJUANA (THC) SCREEN NEGATIVE; URINE METHADONE SCREEN NEGATIVE; URINE PHENCYCLIDINE SCREEN NEGATIVE
[2017-12-16] MEDS ORDERED: FUROSEMIDE INJ/PF 40 MG/4 ML SDV IV ONE (20:00)
[2017-12-16] MEDS ORDERED: POTASSIUM CHLORIDE 10 MEQ CAPSULE.ER PO ONE (20:00)
[2017-12-16] MEDS ORDERED: IRON SUCROSE COMPLEX INJ/PF 100 MG/5 ML SDV IV ONE (20:30)
[2017-12-16] MEDS: NITROGLYCERIN 5 MG (0.2 MG/HR) PATCH.TD24 TD SCH (20:44)
[2017-12-16 21:12] LABS: ARTERIAL BLOOD BASE EXCESS 12.7 mmol/L; ARTERIAL BLOOD H2CO3 2.05 mmol/L (1.05-1.35); ARTERIAL BLOOD HCO3 40.2 mmol/L (20-26); ARTERIAL BLOOD O2 SATURATION 89.3 % (94-98); ARTERIAL BLOOD PCO2 68.1 mmHg (35-45); ARTERIAL BLOOD PH 7.39 (7.35-7.45); ARTERIAL BLOOD TOTAL CO2 42.3 mmol/L (23-27)
[2017-12-16 21:13] LABS: ARTERIAL BLOOD FIO2 3 L
[2017-12-16] MEDS ORDERED: DIVALPROEX SODIUM 500 MG TAB.SR.24H PO SCH (22:00)
[2017-12-16 22:42] LABS: ABSOLUTE RETICS # 0.043 10^6/uL (0.028-0.122); RETICULOCYTE COUNT (AUTO) 1.37 % (0.66-2.85)
[2017-12-16 22:50] LABS: CREATINE KINASE 32 U/L (55-170); IRON(TIBC) 240.2 ug/dL (49-181)
[2017-12-16] MEDS: HEPARIN SOD (PORCINE) 5,000 UNIT/ML 1 ML SYRINGE SUBCUT SCH (23:16)
[2017-12-16 23:56] LABS: FOLATE 9.43 ng/mL (>2.76)
[2017-12-17 00:11] LABS: CREATINE KINASE MB 0.58 ng/mL (<4.55); TROPONIN I 0.034 ng/mL
[2017-12-17 04:36] LABS: ABSOLUTE EOSINOPHILS # (AUTO) 0.4 10^3/uL (0.0-0.6); ABSOLUTE LYMPHOCYTES (AUTO) 1.5 10^3/uL (0.5-4.7); ABSOLUTE MONOCYTES (AUTO) 0.4 10^3/uL (0.1-1.4); ABSOLUTE NEUT (AUTO) 2.2 10^3/uL (1.7-8.2); BASOPHILS % (AUTO) 0.9 % (0-2); EOSINOPHILS % (AUTO) 8.1 % (0-6); HEMATOCRIT 28.2 % (37.9-51.0); LYMPHOCYTES % (AUTO) 33.8 % (13-45); MEAN CORPUSCULAR HEMOGLOBIN 28.7 pg (27.0-33.4); MEAN CORPUSCULAR VOLUME 89 fl (80-97); MONOCYTES % (AUTO) 8.9 % (3-13); PLATELET COUNT 163 10^3/uL (150-450); RED BLOOD COUNT 3.16 10^6/uL (4.35-5.55); RED CELL DISTRIBUTION WIDTH 17.2 % (11.5-14.0); SEGMENTED NEUTROPHILS % (AUTO) 48.3 % (42-78); TOTAL CELLS COUNTED % (AUTO) 100 %; WHITE BLOOD COUNT 4.5 10^3/uL (4.0-10.5)
[2017-12-17 04:58] LABS: CREATINE KINASE 31 U/L (55-170); LDH OLD 453 U/L (313-618)
[2017-12-17 05:16] LABS: CREATINE KINASE MB 0.72 ng/mL (<4.55); TROPONIN I 0.04 ng/mL
[2017-12-17] MEDS: HEPARIN SOD (PORCINE) 5,000 UNIT/ML 1 ML SYRINGE SUBCUT SCH (05:30)
[2017-12-17] MEDS: FUROSEMIDE INJ/PF 40 MG/4 ML SDV IV SCH ×2 (05:30→17:37)
--- NOTE | 2017-12-17 05:36 | PDOC H&P ---
History of Present Illness Admission Date/PCP: 12/16/17 19:31 MAURICE ORTIZ DO History of Present Illness: DANIEL OLIVA is a 72 year old male with history of hypertension, diabetes, coronary artery disease, COPD, obesity hypoventilation syndrome, obstructive sleep apnea, pulmonary embolism, congestive heart failure, coronary artery bypass graft with permanent pacemaker on Eliquis. Patient presents with 7 days of shortness of breath and edema. He is found to have acute on chronic congestive heart failure exacerbation with marketed edema, anemia, acute renal failure. He is referred to the hospitalist for admission. He denies CPAP use, dietary restrictions, dark stools, previous colonoscopy, chest pain nausea vomiting though admits orthopnea, nonproductive cough. Past Medical History Cardiac Medical History: Reports: Congestive Heart Failure, Coronary Artery Disease, Myocardial Infarction, Hypertension, Pulmonary Embolism Pulmonary Medical History: Reports: Chronic Obstructive Pulmonary Disease (COPD) Endocrine Medical History: Reports: Diabetes Mellitus Type 2 - History of same, but only on medication for short time. Musculoskeltal Medical History: Reports: Arthritis Psychiatric Medical History: Reports: Depression Past Surgical History Past Surgical History: Reports: Cardiac Catheterization, Coronary Artery Bypass Graft, Coronary Stent, Pacemaker - Initial device removed for infection; subsequent AICD implant., Tonsillectomy Social History Information Source: Patient, [facility] Lives with: Family Smoking Status: Former Smoker Number of Years Smokin Frequency of Alcohol Use: Rare Hx Recreational Drug Use: No Drugs: None Hx Prescription Drug Abuse: No - Advance Directive Resuscitation Status: Full Code Family History Family History: CAD, COPD Parental Family History Reviewed: Yes Children Family History Reviewed: Yes Sibling(s) Family History Reviewed.: Yes Medication/Allergy Home Medications: Amiodarone HCl [Pacerone] 200 mg PO DAILY 12/16/17 Apixaban [Eliquis] 5 mg PO Q12 12/16/17 Aspirin [Ecotrin 81 mg EC Tablet] 81 mg PO DAILY 12/16/17 Atorvastatin Calcium [Lipitor 40 mg Tablet] 40 mg PO DAILY 12/16/17 Cephalexin [Cephalexin 500 MG Capsule] 1 cap PO Q8 12/16/17 Furosemide [Lasix 40 mg Tablet] 40 mg PO BIDP PRN 12/16/17 Methocarbamol [Robaxin 750 mg Tablet] 750 mg PO Q6HP PRN 12/16/17 Multivitamin [Tab-A-Caroline (Multiple Vitamin) Tablet] 1 tab PO DAILY 12/16/17 Omeprazole 20 mg PO QAM 12/16/17 Oxycodone HCl/Acetaminophen [Endocet 10-325 mg Tablet] 1 tab PO Q6HP PRN Sertraline HCl [Zoloft 50 mg Tablet] 50 mg PO DAILY 12/16/17 Umeclidinium Brm/Vilanterol Tr [Anoro Ellipta 62.5-25 Mcg INH] 1 puff IH [facility] Allergies/Adverse Reactions: No Known Allergies Allergy (Verified 08/05/17 14:09) Review of Systems Constitutional: PRESENT: as per HPI, fatigue, weight gain. ABSENT: anorexia, chills Eyes: ABSENT: visual disturbances Ears: ABSENT: hearing changes Cardiovascular: PRESENT: as per HPI, dyspnea on exertion, edema, orthropnea. ABSENT: palpitations Respiratory: PRESENT: as per HPI, cough. ABSENT: dyspnea, hemoptysis, sputum Gastrointestinal: ABSENT: abdominal pain, constipation, diarrhea, hematemesis, hematochezia, nausea, vomiting Genitourinary: ABSENT: dysuria, hematuria Musculoskeletal: ABSENT: joint swelling Integumentary: ABSENT: rash, wounds Neurological: ABSENT: abnormal gait, abnormal speech, confusion, dizziness, focal weakness, syncope Psychiatric: ABSENT: anxiety, depression, homidical ideation, suicidal ideation Endocrine: ABSENT: cold intolerance, heat intolerance, polydipsia, polyuria Hematologic/Lymphatic: ABSENT: easy bleeding, easy bruising Physical Exam Vital Signs: Temp Pulse Resp BP Pulse Ox 97.3 F 59 L 22 H 143/75 H 93 12/17/17 03:59 12/17/17 03:59 12/17/17 03:59 12/17/17 03:59 12/17/17 03:59 Intake & Output 12/15/17 12/16/17 12/17/17 11:59 11:59 11:59 Intake Total 0 Balance 0 Weight 120.9 kg General appearance: PRESENT: cooperative, disheveled, mild distress, morbidly obese Head exam: PRESENT: atraumatic, normocephalic Eye exam: PRESENT: conjunctiva pink, EOMI, PERRLA. ABSENT: scleral icterus Ear exam: PRESENT: normal external ear exam Mouth exam: PRESENT: moist, tongue midline Neck exam: ABSENT: carotid bruit, JVD, lymphadenopathy, thyromegaly Respiratory exam: PRESENT: accessory muscle use, crackles, retraction, symmetrical, tachypnea. ABSENT: rhonchi Cardiovascular exam: PRESENT: gallop, RRR. ABSENT: diastolic murmur, rubs, systolic murmur Pulses: PRESENT: normal dorsalis pedis pul Vascular exam: PRESENT: normal capillary refill GI/Abdominal exam: PRESENT: normal bowel sounds, soft, other - Truncal edema. ABSENT: distended, guarding, mass, organolmegaly, rebound, tenderness Rectal exam: PRESENT: deferred Extremities exam: PRESENT: +2 edema Neurological exam: PRESENT: alert, awake, oriented to person, oriented to place , oriented to time, oriented to situation, CN II-XII grossly intact. ABSENT: motor sensory deficit Psychiatric exam: PRESENT: appropriate affect, normal mood. ABSENT: homicidal ideation, suicidal ideation Skin exam: PRESENT: dry, intact, warm. ABSENT: cyanosis, rash Results Laboratory Results: 12/17/17 04:26 12/16/17 12/16/17 12/16/17 20:30 22:22 22:22 WBC RBC Hgb Hct MCV MCH MCHC RDW Plt Count Seg Neutrophils % Lymphocytes % Monocytes % Eosinophils % Basophils % Absolute Neutrophils Absolute Lymphocytes Absolute Monocytes Absolute Eosinophils Absolute Basophils Retic Count (auto) 1.37 Absolute Retic 0.043 Carbonic Acid 2.05 H HCO3/H2CO3 Ratio 19:1 ABG pH 7.39 ABG pCO2 68.1 H ABG pO2 59.0 L ABG HCO3 40.2 H ABG O2 Saturation 89.3 L ABG Base Excess 12.7 FiO2 3 L Iron 240.2 H TIBC 292 % Saturation 82 Ferritin 114.00 Vitamin B12 485.0 Folate 9.43 12/17/17 04:26 WBC 4.5 RBC 3.16 L Hgb 9.0 L Hct 28.2 L MCV 89 MCH 28.7 MCHC 32.0 RDW 17.2 H Plt Count 163 Seg Neutrophils % 48.3 Lymphocytes % 33.8 Monocytes % 8.9 Eosinophils % 8.1 H Basophils % 0.9 Absolute Neutrophils 2.2 Absolute Lymphocytes 1.5 Absolute Monocytes 0.4 Absolute Eosinophils 0.4 Absolute Basophils 0.0 Retic Count (auto) Absolute Retic Carbonic Acid HCO3/H2CO3 Ratio ABG pH ABG pCO2 ABG pO2 ABG HCO3 ABG O2 Saturation ABG Base Excess FiO2 Iron TIBC % Saturation Ferritin Vitamin B12 Folate 12/16/17 12/16/17 12/17/17 22:22 22:22 04:26 Creatine Kinase 32 L CK-MB (CK-2) 0.58 0.72 Troponin I 0.034 0.040 12/17/17 04:26 Creatine Kinase 31 L CK-MB (CK-2) Troponin I Impressions: Chest X-Ray 12/16/17 16:20 IMPRESSION: INTERVAL CARDIAC SURGERY AND PLACEMENT OF DEFIBRILLATOR. CARDIOMEGALY WITH VASCULAR CONGESTION AND MODERATELY LARGE LEFT PLEURAL EFFUSION. Assessment & Plan - Diagnosis (1) Anemia Qualifiers: Anemia type: iron deficiency Is this a current diagnosis for this admission?: Yes Plan: Microcytic anemia, empiric iron initiated, follow-up fecal occult stool and outpatient colonoscopy. (2) Obstructive sleep apnea Is this a current diagnosis for this admission?: Yes Plan: BiPAP (3) ARF (acute renal failure) Qualifiers: Acute renal failure type: unspecified Qualified Code(s): N17.9 - Acute kidney failure, unspecified Is this a current diagnosis for this admission?: Yes Plan: Unclear cause, avoid nephrotoxic meds and doses reevaluate chemistry (4) COPD exacerbation Is this a current diagnosis for this admission?: Yes Plan: Albuterol and Atrovent, incentive spirometry supplemental oxygen (5) Morbid obesity with BMI of 40.0-44.9, adult Is this a current diagnosis for this admission?: Yes Plan: Morbid obesity will evaluate for metabolic cause with evaluation of thyroid function and dietitian consultation (6) Combined systolic and diastolic cardiac dysfunction Is this a current diagnosis for this admission?: Yes Plan: Obtain recent echocardiogram, otherwise will obtain post coronary artery bypass echo now. Optimize fluid status, anemia and apneic state. - Time Time Spent: 50 to 70 Minutes - Inpatient Certification Medical Necessity: Need Close Monitoring Due to Risk of Patient Decompensation
--- NOTE | 2017-12-17 09:51 | EKG REPORT ---
SEVERITY:- ABNORMAL ECG - A-V DUAL-PACED COMPLEXES W/ SOME INHIBITION : Confirmed by: Farzana Still 17-Dec-2017 09:50:43
[2017-12-17] MEDS ORDERED: FUROSEMIDE INJ/PF 40 MG/4 ML SDV IV SCH (10:30)
[2017-12-17] MEDS: POTASSIUM CHLORIDE 10 MEQ CAPSULE.ER PO SCH ×2 (10:56→21:29)
[2017-12-17] MEDS: DOCUSATE SODIUM 100 MG CAPSULE PO SCH (10:58)
[2017-12-17 10:59] LABS: CREATINE KINASE MB 0.85 ng/mL (<4.55); TROPONIN I 0.037 ng/mL
--- NOTE | 2017-12-17 11:23 | PDOC PROGRESS REPORT ---
Subjective Progress Note for:: 12/17/17 Subjective:: This is a 76 years old male patient admitted with multiple comorbidities presented with shortness of breath. I seen patient resting weight while on full mask BiPAP. His chest x-ray revealed moderate to large pleural effusion which might be part of the picture of his CHF exacerbation. I requested ultrasound-guided thoracentesis. Reason For Visit: ANEMIA HIGH OUTPUT HEART FAILURE AND Physical Exam Vital Signs: Temp Pulse Resp BP Pulse Ox 97.2 F 60 13 140/66 H 90 L 12/17/17 07:41 12/17/17 07:41 12/17/17 08:26 12/17/17 07:41 12/17/17 08:26 Intake & Output 12/16/17 12/17/17 12/18/17 06:59 06:59 06:59 Intake Total 14 Output Total 200 Balance -186 Weight 120.9 kg General appearance: PRESENT: mild distress Head exam: PRESENT: atraumatic, normocephalic Eye exam: PRESENT: conjunctiva pink, EOMI, PERRLA. ABSENT: scleral icterus Neck exam: PRESENT: JVD Respiratory exam: PRESENT: decreased breath sounds - Left greater than right Cardiovascular exam: PRESENT: RRR. ABSENT: diastolic murmur, rubs, systolic murmur GI/Abdominal exam: PRESENT: normal bowel sounds, soft. ABSENT: distended, guarding, mass, organolmegaly, rebound, tenderness Extremities exam: PRESENT: +2 edema Neurological exam: PRESENT: alert, awake, oriented to time, oriented to situation Psychiatric exam: PRESENT: normal mood Results Laboratory Results: 12/17/17 04:26 12/16/17 12/16/17 12/16/17 20:30 22:22 22:22 WBC RBC Hgb Hct MCV MCH MCHC RDW Plt Count Seg Neutrophils % Lymphocytes % Monocytes % Eosinophils % Basophils % Absolute Neutrophils Absolute Lymphocytes Absolute Monocytes Absolute Eosinophils Absolute Basophils Retic Count (auto) 1.37 Absolute Retic 0.043 Carbonic Acid 2.05 H HCO3/H2CO3 Ratio 19:1 ABG pH 7.39 ABG pCO2 68.1 H ABG pO2 59.0 L ABG HCO3 40.2 H ABG O2 Saturation 89.3 L ABG Base Excess 12.7 FiO2 3 L Iron 240.2 H TIBC 292 % Saturation 82 Ferritin 114.00 Vitamin B12 485.0 Folate 9.43 12/17/17 04:26 WBC 4.5 RBC 3.16 L Hgb 9.0 L Hct 28.2 L MCV 89 MCH 28.7 MCHC 32.0 RDW 17.2 H Plt Count 163 Seg Neutrophils % 48.3 Lymphocytes % 33.8 Monocytes % 8.9 Eosinophils % 8.1 H Basophils % 0.9 Absolute Neutrophils 2.2 Absolute Lymphocytes 1.5 Absolute Monocytes 0.4 Absolute Eosinophils 0.4 Absolute Basophils 0.0 Retic Count (auto) Absolute Retic Carbonic Acid HCO3/H2CO3 Ratio ABG pH ABG pCO2 ABG pO2 ABG HCO3 ABG O2 Saturation ABG Base Excess FiO2 Iron TIBC % Saturation Ferritin Vitamin B12 Folate 12/16/17 12/16/17 12/17/17 22:22 22:22 04:26 Creatine Kinase 32 L CK-MB (CK-2) 0.58 0.72 Troponin I 0.034 0.040 12/17/17 12/17/17 12/17/17 04:26 10:17 10:17 Creatine Kinase 31 L 23 L CK-MB (CK-2) 0.85 Troponin I 0.037 Impressions: Chest X-Ray 12/16/17 16:20 IMPRESSION: INTERVAL CARDIAC SURGERY AND PLACEMENT OF DEFIBRILLATOR. CARDIOMEGALY WITH VASCULAR CONGESTION AND MODERATELY LARGE LEFT PLEURAL EFFUSION. Assessment & Plan - Diagnosis (1) Acute on chronic systolic congestive heart failure, NYHA class 3 Is this a current diagnosis for this admission?: Yes Plan: Patient has been started on Lasix. Continue cardiac protective medications. Echocardiogram routine (2) COPD exacerbation Is this a current diagnosis for this admission?: Yes Plan: Supplemental oxygen and bronchodilators as needed (3) LEYLA (acute kidney injury) Is this a current diagnosis for this admission?: Yes Plan: Cautious hydration (4) Pleural effusion, left Is this a current diagnosis for this admission?: Yes Plan: Ultrasound-guided thoracentesis. (5) Type 2 diabetes mellitus Is this a current diagnosis for this admission?: Yes Plan: Patient has been started on sliding scale and will continue his home medication. (6) Obstructive sleep apnea Is this a current diagnosis for this admission?: Yes Plan: Continue CPAP - Time Time Spent with patient: 35 or more minutes
[2017-12-17] MEDS: OXYCODONE HCL IR 5 MG TABLET PO PRN ×2 (12:45→20:12)
[2017-12-17] MEDS: OXYCODONE-ACETAMINOPHEN 5-325 MG TABLET PO PRN ×2 (12:46→20:12)
[2017-12-17] MEDS: CEPHALEXIN 500 MG CAPSULE PO SCH ×2 (13:34→21:29)
[2017-12-17] MEDS: NITROGLYCERIN 5 MG (0.2 MG/HR) PATCH.TD24 TD SCH (20:55)
[2017-12-18] MEDS: OXYCODONE-ACETAMINOPHEN 5-325 MG TABLET PO PRN ×4 (02:36→22:38)
[2017-12-18] MEDS: OXYCODONE HCL IR 5 MG TABLET PO PRN ×4 (02:36→22:38)
[2017-12-18 04:51] LABS: ABSOLUTE EOSINOPHILS # (AUTO) 0.4 10^3/uL (0.0-0.6); ABSOLUTE LYMPHOCYTES (AUTO) 1.4 10^3/uL (0.5-4.7); ABSOLUTE MONOCYTES (AUTO) 0.4 10^3/uL (0.1-1.4); BASOPHILS % (AUTO) 1.1 % (0-2); EOSINOPHILS % (AUTO) 8.3 % (0-6); HEMATOCRIT 27.6 % (37.9-51.0); HEMOGLOBIN 9.1 g/dL (13.5-17.0); LYMPHOCYTES % (AUTO) 33.3 % (13-45); MEAN CORPUSCULAR HEMOGLOBIN 29.3 pg (27.0-33.4); MEAN CORPUSCULAR VOLUME 89 fl (80-97); MONOCYTES % (AUTO) 9.5 % (3-13); PLATELET COUNT 154 10^3/uL (150-450); RED CELL DISTRIBUTION WIDTH 16.9 % (11.5-14.0); SEGMENTED NEUTROPHILS % (AUTO) 47.8 % (42-78); TOTAL CELLS COUNTED % (AUTO) 100 %; WHITE BLOOD COUNT 4.3 10^3/uL (4.0-10.5)
[2017-12-18 04:55] LABS: INTERNATIONAL RATION (INR) 1.35; PROTHROMBIN TIME 17.4 SEC (11.4-15.4)
[2017-12-18 04:56] LABS: PARTIAL THROMBOPLASTIN TIME 35.9 SEC (23.5-35.8)
[2017-12-18 05:20] LABS: BLOOD UREA NITROGEN 24 mg/dL (7-20); CALCIUM 8.2 mg/dL (8.4-10.2); CHLORIDE 97 mmol/L (98-107); GLUCOSE 84 mg/dL (75-110); POTASSIUM 4.3 mmol/L (3.6-5.0); SODIUM 145.6 mmol/L (137-145)
[2017-12-18] MEDS: CEPHALEXIN 500 MG CAPSULE PO SCH ×3 (05:48→21:21)
[2017-12-18] MEDS: FUROSEMIDE INJ/PF 40 MG/4 ML SDV IV SCH ×2 (05:48→18:08)
[2017-12-18 06:08] LABS: ANION GAP 8 (5-19)
[2017-12-18 06:13] LABS: CARBON DIOXIDE 41 mmol/L (22-30)
[2017-12-18] MEDS ORDERED: (PENDING PHARMACY ID) (Oxycodone Hcl/Acetaminophen [Endocet 10-325 Mg Tablet] 1 TAB) PO PRN (08:01)
[2017-12-18] MEDS: ASPIRIN 81 MG TABLET, ENT COATED PO SCH (09:37)
[2017-12-18] MEDS: POTASSIUM CHLORIDE 10 MEQ CAPSULE.ER PO SCH ×2 (09:42→21:22)
[2017-12-18] MEDS: SERTRALINE HCL 50 MG TABLET PO SCH (09:43)
[2017-12-18] MEDS: DOCUSATE SODIUM 100 MG CAPSULE PO SCH (09:43)
[2017-12-18] MEDS: MULTIVITAMIN TABLET PO SCH (09:43)
[2017-12-18] MEDS: AMIODARONE HCL 200 MG TABLET PO SCH (09:43)
[2017-12-18] MEDS ORDERED: OXYCODONE-ACETAMINOPHEN 5-325 MG TABLET PO PRN (10:15)
[2017-12-18] MEDS ORDERED: OXYCODONE HCL IR 5 MG TABLET PO PRN (10:16)
--- NOTE | 2017-12-18 11:31 | RADIOLOGY REPORT (SQ) ---
EXAM DESCRIPTION: CHEST SINGLE VIEW COMPLETED DATE/TIME: 12/18/2017 11:20 am REASON FOR STUDY: POST THORA COMPARISON: 12/16/2017. EXAM PARAMETERS: NUMBER OF VIEWS: One view. TECHNIQUE: Single frontal radiographic view of the chest acquired. RADIATION DOSE: NA LIMITATIONS: None. FINDINGS: LUNGS AND PLEURA: Overall improved aeration compared to the prior study. Atelectasis in t he right base with small right pleural effusion. Large left pleural effusion unchanged. MEDIASTINUM AND HILAR STRUCTURES: No masses. Contour normal. HEART AND VASCULAR STRUCTURES: Cardiomegaly. BONES: No acute findings. HARDWARE: Sternotomy wires, atrial clip, defibrillator. OTHER: No other significant finding. IMPRESSION: OVERALL IMPROVED AERATION. LARGE LEFT PLEURAL EFFUSION UNCHANGED. TECHNICAL DOCUMENTATION: JOB ID: [id number] [employer]- All Rights Reserved Reading location - IP/workstation name: [email or web address]
--- NOTE | 2017-12-18 11:41 | RADIOLOGY REPORT (SQ) ---
EXAM DESCRIPTION: U/S THORACENTESIS WITH IMAGING COMPLETED DATE/TIME: 12/18/2017 11:33 am REASON FOR STUDY: Moderate large left pleural effusion COMPARISON: CT of the chest dated very 03/16/2018 and chest x-ray from 12/16/2017. LIMITATIONS: None. PROCEDURE: Procedure, risks, benefit, and alternative explained to patient who then gave written con sent. The posterior left chest wall was marked using ultrasound guidance. A time-out was called for correct marking verification. Chest prepped and draped using sterile technique. Local anesthesia ac hieved using 8 ml of 1% lidocaine injection. A 6fr Safe-T- Centesis set was introduced into the left pleural space. Fluid was aspirated. The catheter was removed and the entry site was covered with s terile bandage. No immediate complications noted. Images acquired during the procedure were stored on PACS. FINDINGS: ENTRY SITE: Left posterior chest wall FLUID VOLUME: 720 mL FLUID ANALYSIS: Straw-colored OTHER: Fluid sent to the lab for testing. IMPRESSION: SUCCESSFUL THORACENTESIS USING ULTRASOUND GUIDANCE. COMMENT: Patient medication list reviewed: Yes- Quality ID# [id number]:Eligible professional attests to doc umenting in the medical record they obtained, updated, or reviewed the patient's current medications. TECHNICAL DOCUMENTATION: JOB ID: [id number] [employer]- All Rights Reserved Reading location - IP/workstation name: [email or web address]
[2017-12-18] MEDS ORDERED: CARVEDILOL 12.5 MG TABLET PO ONE (13:00)
--- NOTE | 2017-12-18 13:01 | PDOC PROGRESS REPORT ---
Subjective Subjective:: Patient is lying in bed with full mask BiPAP. He is awake and alert. This morning patient undergo ultrasound-guided thoracentesis and about 750 mL of straw-colored fluid removed. Fluid analysis is pending. I restarted his Eliquis. There is no report of nausea vomiting or diarrhea. Reason For Visit: ANEMIA HIGH OUTPUT HEART FAILURE AND Physical Exam Vital Signs: Temp Pulse Resp BP Pulse Ox 97.6 F 58 L 20 144/66 H 94 12/18/17 07:16 12/18/17 07:16 12/18/17 07:16 12/18/17 07:16 12/18/17 10:18 Intake & Output 12/17/17 12/18/17 12/19/17 06:59 06:59 06:59 Intake Total 14 865 Output Total 200 1100 Balance -186 -235 Weight 120.9 kg 121 kg General appearance: PRESENT: mild distress Head exam: PRESENT: atraumatic, normocephalic Neck exam: ABSENT: carotid bruit, JVD, lymphadenopathy, thyromegaly Respiratory exam: PRESENT: decreased breath sounds Cardiovascular exam: PRESENT: RRR. ABSENT: diastolic murmur, rubs, systolic murmur GI/Abdominal exam: PRESENT: normal bowel sounds, soft. ABSENT: distended, guarding, mass, organolmegaly, rebound, tenderness Extremities exam: PRESENT: other - Bilateral +3 pitting edema Neurological exam: PRESENT: alert, awake Results Laboratory Results: 12/18/17 04:18 12/18/17 04:18 12/18/17 12/18/17 04:18 04:18 WBC 4.3 RBC 3.10 L Hgb 9.1 L Hct 27.6 L MCV 89 MCH 29.3 MCHC 33.0 RDW 16.9 H Plt Count 154 Seg Neutrophils % 47.8 Lymphocytes % 33.3 Monocytes % 9.5 Eosinophils % 8.3 H Basophils % 1.1 Absolute Neutrophils 2.0 Absolute Lymphocytes 1.4 Absolute Monocytes 0.4 Absolute Eosinophils 0.4 Absolute Basophils 0.0 Sodium 145.6 H Potassium 4.3 Chloride 97 L Carbon Dioxide 41 H* Anion Gap 8 BUN 24 H Creatinine 1.48 H Est GFR ( Amer) 56 L Est GFR (Non-Af Amer) 47 L Glucose 84 Calcium 8.2 L 12/16/17 12/16/17 12/17/17 22:22 22:22 04:26 Creatine Kinase 32 L CK-MB (CK-2) 0.58 0.72 Troponin I 0.034 0.040 12/17/17 12/17/17 12/17/17 04:26 10:17 10:17 Creatine Kinase 31 L 23 L CK-MB (CK-2) 0.85 Troponin I 0.037 Impressions: Thoracentesis Ultrasound 12/18/17 00:00 IMPRESSION: SUCCESSFUL THORACENTESIS USING ULTRASOUND GUIDANCE. Chest X-Ray 12/18/17 11:06 IMPRESSION: OVERALL IMPROVED AERATION. LARGE LEFT PLEURAL EFFUSION UNCHANGED. Assessment & Plan - Diagnosis (1) Acute on chronic systolic congestive heart failure, NYHA class 3 Is this a current diagnosis for this admission?: Yes Plan: Continue Lasix and enalapril. I did for him Coreg 12.5 mg twice a day. (2) COPD exacerbation Is this a current diagnosis for this admission?: Yes Plan: Supplemental oxygen and bronchodilators as needed (3) LEYLA (acute kidney injury) Is this a current diagnosis for this admission?: Yes Plan: Cautious hydration (4) Pleural effusion, left Is this a current diagnosis for this admission?: Yes (5) Type 2 diabetes mellitus Is this a current diagnosis for this admission?: Yes (6) Obstructive sleep apnea Is this a current diagnosis for this admission?: Yes Plan: Continue CPAP - Time Time Spent with patient: 25-34 minutes
[2017-12-18 13:20] LABS: FLUID SOURCE LUNG; FLUID TYPE PLEURAL
[2017-12-18 13:21] LABS: FLUID APPEARANCE CLEAR; FLUID COLOR LIGHT YELLOW; FLUID VISCOSITY LIQUID
--- NOTE | 2017-12-18 13:32 | RADIOLOGY REPORT (SQ) ---
EXAM DESCRIPTION: CHEST SINGLE VIEW COMPLETED DATE/TIME: 12/18/2017 1:22 pm REASON FOR STUDY: 2HR DELAY POST THORA AT 1315 COMPARISON: 12/18/2017 at 1117 hours. EXAM PARAMETERS: NUMBER OF VIEWS: One view. TECHNIQUE: Single frontal radiographic view of the chest acquired. RADIATION DOSE: NA LIMITATIONS: None. FINDINGS: LUNGS AND PLEURA: No pneumothorax 2 hours after thoracentesis. Left pleural effusion unch anged. MEDIASTINUM AND HILAR STRUCTURES: No masses. Contour normal. HEART AND VASCULAR STRUCTURES: Cardiomegaly. BONES: No acute findings. HARDWARE: Defibrillator, sternotomy wires, atrial clip. OTHER: No other significant finding. IMPRESSION: STABLE APPEARANCE OF THE CHEST. NO PNEUMOTHORAX 2 HOURS AFTER THORACENTESIS. TECHNICAL DOCUMENTATION: JOB ID: [id number] [employer]- All Rights Reserved Reading location - IP/workstation name: [email or web address]
[2017-12-18] MEDS ORDERED: LIDOCAINE 5% (700 MG) TRANSDERMAL ADH..PATCH TP ONE (14:30)
[2017-12-18] MEDS: APIXABAN 5 MG TABLET PO SCH (18:08)
[2017-12-18] MEDS: NITROGLYCERIN 5 MG (0.2 MG/HR) PATCH.TD24 TD SCH (20:17)
[2017-12-18] MEDS: ATORVASTATIN CALCIUM 40 MG TABLET PO SCH (21:21)
[2017-12-18] MEDS: CARVEDILOL 12.5 MG TABLET PO SCH (21:22)
[2017-12-19] MEDS: FUROSEMIDE INJ/PF 40 MG/4 ML SDV IV SCH ×2 (05:05→17:13)
[2017-12-19] MEDS: OXYCODONE HCL IR 5 MG TABLET PO PRN ×4 (05:05→23:21)
[2017-12-19] MEDS: CEPHALEXIN 500 MG CAPSULE PO SCH ×3 (05:05→21:33)
[2017-12-19] MEDS: OXYCODONE-ACETAMINOPHEN 5-325 MG TABLET PO PRN ×4 (05:06→23:16)
[2017-12-19 06:49] LABS: BLOOD UREA NITROGEN 29 mg/dL (7-20); CALCIUM 8.2 mg/dL (8.4-10.2); CHLORIDE 95 mmol/L (98-107); GLUCOSE 85 mg/dL (75-110); POTASSIUM 4.5 mmol/L (3.6-5.0); SODIUM 143.6 mmol/L (137-145)
[2017-12-19 07:01] LABS: CARBON DIOXIDE 45 mmol/L (22-30)
[2017-12-19 07:28] LABS: ANION GAP 4 (5-19)
[2017-12-19] MEDS ORDERED: (PENDING PHARMACY ID) (Umeclidinium Brm/Vilanterol Tr [Anoro Ellipta 62.5-25 Mcg Inh] 1 PU IH SCH (08:00)
[2017-12-19] MEDS ORDERED: FUROSEMIDE INJ/PF 40 MG/4 ML SDV IV SCH (09:52)
[2017-12-19] MEDS: METHOCARBAMOL 750 MG TABLET PO PRN (11:13)
[2017-12-19] MEDS: MULTIVITAMIN TABLET PO SCH (11:14)
[2017-12-19] MEDS: LIDOCAINE 5% (700 MG) TRANSDERMAL ADH..PATCH TP SCH (11:15)
[2017-12-19] MEDS: CARVEDILOL 12.5 MG TABLET PO SCH ×2 (11:15→23:16)
[2017-12-19] MEDS: AMIODARONE HCL 200 MG TABLET PO SCH (11:15)
[2017-12-19] MEDS: APIXABAN 5 MG TABLET PO SCH ×2 (11:16→17:13)
[2017-12-19] MEDS: DOCUSATE SODIUM 100 MG CAPSULE PO SCH (11:16)
[2017-12-19] MEDS: SERTRALINE HCL 50 MG TABLET PO SCH (11:16)
[2017-12-19] MEDS: ASPIRIN 81 MG TABLET, ENT COATED PO SCH (11:16)
[2017-12-19] MEDS: POTASSIUM CHLORIDE 10 MEQ CAPSULE.ER PO SCH ×2 (11:16→21:33)
[2017-12-19 12:56] LABS: ARTERIAL BLOOD BASE EXCESS 16.8 mmol/L; ARTERIAL BLOOD H2CO3 2.41 mmol/L (1.05-1.35); ARTERIAL BLOOD HCO3 44.9 mmol/L (20-26); ARTERIAL BLOOD O2 SATURATION 93.5 % (94-98); ARTERIAL BLOOD PH 7.37 (7.35-7.45); ARTERIAL BLOOD PO2 73.7 mmHg (80-100); ARTERIAL BLOOD TOTAL CO2 47.4 mmol/L (23-27)
[2017-12-19 12:57] LABS: ARTERIAL BLOOD FIO2 3L
--- NOTE | 2017-12-19 13:51 | PDOC PROGRESS REPORT ---
Subjective Progress Note for:: 12/19/17 Subjective:: I seen patient sitting by the bedside. This morning his ABG revealed a PCO2 of 80 and his bicarb is 44. Patient is noncompliant with his BiPAP. I advised him and encouraged him to keep with the BiPAP as needed during the day and continuously at night. Otherwise no acute complaints. Reason For Visit: ANEMIA HIGH OUTPUT HEART FAILURE AND Physical Exam Vital Signs: Temp Pulse Resp BP Pulse Ox 98.1 F 60 24 H 119/63 95 12/19/17 12:06 12/19/17 12:06 12/19/17 12:06 12/19/17 12:06 12/19/17 12:06 Intake & Output 12/18/17 12/19/17 12/20/17 06:59 06:59 06:59 Intake Total 865 737 615 Output Total 1100 875 200 Balance -235 -138 415 Weight 121 kg 84.1 kg Results Laboratory Results: 12/18/17 04:18 12/19/17 06:26 12/19/17 12/19/17 12/19/17 06:26 09:22 12:30 Carbonic Acid Cancelled 2.41 H HCO3/H2CO3 Ratio Cancelled 18:1 ABG pH Cancelled 7.37 ABG pCO2 Cancelled 80.0 H* ABG pO2 Cancelled 73.7 L ABG HCO3 Cancelled 44.9 H ABG O2 Saturation Cancelled 93.5 L ABG Base Excess Cancelled 16.8 FiO2 Cancelled 3L Sodium 143.6 Potassium 4.5 Chloride 95 L Carbon Dioxide 45 H* Anion Gap 4 L BUN 29 H Creatinine 1.67 H Est GFR ( Amer) 49 L Est GFR (Non-Af Amer) 41 L Glucose 85 Calcium 8.2 L 12/16/17 12/16/17 12/17/17 22:22 22:22 04:26 Creatine Kinase 32 L CK-MB (CK-2) 0.58 0.72 Troponin I 0.034 0.040 12/17/17 12/17/17 12/17/17 04:26 10:17 10:17 Creatine Kinase 31 L 23 L CK-MB (CK-2) 0.85 Troponin I 0.037 Impressions: Thoracentesis Ultrasound 12/18/17 00:00 IMPRESSION: SUCCESSFUL THORACENTESIS USING ULTRASOUND GUIDANCE. Chest X-Ray 12/18/17 13:15 IMPRESSION: STABLE APPEARANCE OF THE CHEST. NO PNEUMOTHORAX 2 HOURS AFTER THORACENTESIS. Assessment & Plan - Diagnosis (1) Acute on chronic systolic congestive heart failure, NYHA class 3 Is this a current diagnosis for this admission?: Yes Plan: Current regimen (2) COPD exacerbation Is this a current diagnosis for this admission?: Yes Plan: BiPAP, Solu-Medrol, bronchodilator, Spiriva. (3) LEYLA (acute kidney injury) Is this a current diagnosis for this admission?: Yes Plan: Improving (4) Pleural effusion, left Is this a current diagnosis for this admission?: Yes Plan: Ultrasound-guided thoracentesis. (5) Type 2 diabetes mellitus Is this a current diagnosis for this admission?: Yes Plan: Patient has been started on sliding scale and will continue his home medication. (6) Obstructive sleep apnea Is this a current diagnosis for this admission?: Yes Plan: Continue CPAP - Time Time Spent with patient: 25-34 minutes
--- NOTE | 2017-12-19 14:02 | XCELERA REPORT ---
[address] [address] Transthoracic Echocardiogram Report Name: DANIEL OLIVA Age: 72 yrs Gender: Male : 1945 Patient Status: Inpatient Patient Location: [address] [place] [address] Study Date: 12/19/2017 09:29 AM Procedure: A two-dimensional transthoracic echocardiogram with color flow and Doppler was performed. The study was technically difficult with many images being suboptimal in quality. Reason For Study: systolic murmur History: systolic murmur. Ordering Physician: EDDI GARCIA Performed By: Betina Cordon Interpretation Summary The left ventricle is normal in size. Mild 'TALA',but no IHSS.No 'BETH' odf the mitral valve.No True 2 chamber apical views obtained.Hence cannot comment on the apical and basal anterior mccartney, and the apical and basal inferior mccartney.The mid anterior and the mid inferior and the rest of the mccartney contract normally.LVEF is normal at 65%. The left atrium is moderately dilated. There is no evidence of mitral valve prolapse. There is no mitral valve stenosis. There is a mild amount of mitral regurgitation The aortic valve is mildly calcified There is no aortic valve stenosis There is no LVOT obstruction. There is a trace amount of aortic regurgitation There is no tricuspid stenosis. There is a mild amount of tricuspid regurgitation There is mild pulmonary hypertension by echo RVSP is 43 mm of Hg ,with RA mean of 10. There is no pulmonic valvular stenosis. There is a mild amount of pulmonic regurgitation There is no pericardial effusion. There is a moderate Left Pleural Effusion. MMode/2D Measurements & Calculations RVDd: 3.8 cm LVIDd: 6.8 cm FS: 41.0 % Ao root diam: 4.0 cm IVSd: 1.2 cm LVIDs: 4.0 cm EDV(Teich): 242.4 mlAo root area: 12.4 cm2 LVPWd: 0.97 cm ESV(Teich): 71.6 ml EF(Teich): 70.5 % LVOT diam: 2.6 cm LVOT area: 5.2 cm2 Doppler Measurements & Calculations MV E max vika: MV dec slope: Ao V2 max: LV V1 max P.0 cm/sec 116.6 cm/sec 1.9 mmHg MV A max vika: 427.6 cm/sec2 Ao max P.1 mmHg LV V1 mean P.1 cm/sec MV dec time: Ao V2 mean: 1.1 mmHg MV E/A: 3.0 0.26 sec 111.6 cm/sec LV V1 max: Ao mean P.3 cm/sec 5.5 mmHg LV V1 mean: Ao V2 VTI: 34.5 cm 50.0 cm/sec LV V1 VTI: RHONDA(I,D): 2.4 cm2 16.0 cm RHONDA(V,D): 3.1 cm2 SV(LVOT): 82.5 ml PA V2 max: PI end-d vika: TR max vika: 77.9 cm/sec 113.5 cm/sec 289.2 cm/sec PA max P.4 mmHgPI max vika: TR max P.3 cm/sec 33.5 mmHg PI max P.7 mmHg PI dec slope: 207.9 cm/sec2 Left Ventricle The left ventricle is normal in size. Mild 'TALA',but no IHSS.No 'BETH' odf the mitral valve.No True 2 chamber apical views obtained.Hence cannot comment on the apical and basal anterior mccartney, and the apical and basal inferior mccartney.The mid anterior and the mid inferior and the rest of the mccartney contract normally.LVEF is normal at 65%. Doppler measurements suggest normal left ventricular diastolic function. There is no thrombus. Right Ventricle The right ventricle is not well visualized secondary to technical limitations. Atria Right atrium not well visualized secondary to technical limitations. The left atrium is moderately dilated. Mitral Valve There is mild to moderate mitral annular calcification. There is no evidence of mitral valve prolapse. There is no vegetation seen on the mitral valve. There is no mitral valve stenosis. There is a mild amount of mitral regurgitation. Aortic Valve The aortic valve is mildly calcified. There is no aortic valvular vegetation. There is no aortic valve stenosis. There is no LVOT obstruction. There is a trace amount of aortic regurgitation. Tricuspid Valve There is no tricuspid stenosis. There is a mild amount of tricuspid regurgitation. There is mild pulmonary hypertension by echo. RVSP is 43 mm of Hg ,with RA mean of 10. Pulmonic Valve There is no pulmonic valvular stenosis. There is a mild amount of pulmonic regurgitation. Great Vessels The aortic root is not well visualized but is probably normal size. Effusions There is no pericardial effusion. There is a moderate Left Pleural Effusion. : EDDI GARCIA > Barbara Ann
[2017-12-19] MEDS ORDERED: FUROSEMIDE INJ/PF 20 MG/2 ML SDV IV SCH ×2 (18:00)
[2017-12-19] MEDS: NITROGLYCERIN 5 MG (0.2 MG/HR) PATCH.TD24 TD SCH (20:20)
[2017-12-19] MEDS: ATORVASTATIN CALCIUM 40 MG TABLET PO SCH (21:33)
[2017-12-19] MEDS: PHARMACY COMMUNICATION ORDER MC SCH (21:34)
[2017-12-20] MEDS: CEPHALEXIN 500 MG CAPSULE PO SCH ×3 (05:06→22:11)
[2017-12-20] MEDS: FUROSEMIDE INJ/PF 40 MG/4 ML SDV IV SCH ×2 (05:07→17:40)
[2017-12-20] MEDS: CARVEDILOL 12.5 MG TABLET PO SCH ×2 (10:44→22:11)
[2017-12-20] MEDS: METHOCARBAMOL 750 MG TABLET PO PRN (10:44)
[2017-12-20] MEDS: POTASSIUM CHLORIDE 10 MEQ CAPSULE.ER PO SCH ×2 (10:44→22:10)
[2017-12-20] MEDS: ASPIRIN 81 MG TABLET, ENT COATED PO SCH (10:44)
[2017-12-20] MEDS: SERTRALINE HCL 50 MG TABLET PO SCH (10:44)
[2017-12-20] MEDS: AMIODARONE HCL 200 MG TABLET PO SCH (10:45)
[2017-12-20] MEDS: DOCUSATE SODIUM 100 MG CAPSULE PO SCH (10:45)
[2017-12-20] MEDS: LIDOCAINE 5% (700 MG) TRANSDERMAL ADH..PATCH TP SCH (10:45)
[2017-12-20] MEDS: MULTIVITAMIN TABLET PO SCH (10:45)
[2017-12-20] MEDS: APIXABAN 5 MG TABLET PO SCH ×2 (10:45→17:40)
[2017-12-20] MEDS: OXYCODONE HCL IR 5 MG TABLET PO PRN ×3 (10:46→23:53)
[2017-12-20] MEDS: OXYCODONE-ACETAMINOPHEN 5-325 MG TABLET PO PRN ×3 (10:46→23:52)
--- NOTE | 2017-12-20 14:25 | PDOC PROGRESS REPORT ---
Subjective Subjective:: I seen patient sleeping quietly. Patient is still noncompliant with his BiPAP, the nurse reports that patient took off his BiPAP last night. No other new complaints. Reason For Visit: ANEMIA HIGH OUTPUT HEART FAILURE AND Physical Exam Vital Signs: Temp Pulse Resp BP Pulse Ox 98.1 F 59 L 22 H 93/34 L 91 L 12/20/17 11:44 12/20/17 11:44 12/20/17 11:44 12/20/17 11:44 12/20/17 11:44 Intake & Output 12/19/17 12/20/17 12/21/17 06:59 06:59 06:59 Intake Total 737 1325 473 Output Total 875 850 300 Balance -138 475 173 Weight 84.1 kg 84.1 kg Results Laboratory Results: 12/18/17 04:18 12/19/17 06:26 12/16/17 12/16/17 12/17/17 22:22 22:22 04:26 Creatine Kinase 32 L CK-MB (CK-2) 0.58 0.72 Troponin I 0.034 0.040 12/17/17 12/17/17 12/17/17 04:26 10:17 10:17 Creatine Kinase 31 L 23 L CK-MB (CK-2) 0.85 Troponin I 0.037 Impressions: Thoracentesis Ultrasound 12/18/17 00:00 IMPRESSION: SUCCESSFUL THORACENTESIS USING ULTRASOUND GUIDANCE. Chest X-Ray 12/18/17 13:15 IMPRESSION: STABLE APPEARANCE OF THE CHEST. NO PNEUMOTHORAX 2 HOURS AFTER THORACENTESIS. Assessment & Plan - Diagnosis (1) Acute on chronic systolic congestive heart failure, NYHA class 3 Is this a current diagnosis for this admission?: Yes Plan: Continue Lasix. Add Zaroxolyn. (2) COPD exacerbation Is this a current diagnosis for this admission?: Yes Plan: Continue bronchodilators, supplemental oxygen and incentive spirometry. (3) LEYLA (acute kidney injury) Is this a current diagnosis for this admission?: Yes Plan: Improving (4) Pleural effusion, left Is this a current diagnosis for this admission?: Yes Plan: Ultrasound-guided thoracentesis. (5) Obstructive sleep apnea Is this a current diagnosis for this admission?: Yes Plan: Continue CPAP (6) Acute on chronic respiratory failure Is this a current diagnosis for this admission?: Yes Plan: Patient has CO2 retention evidenced by bright PCO2 of 80 on his blood gas. We will continue the breathing treatment and supplemental oxygen. - Time Time Spent with patient: 25-34 minutes
[2017-12-20 17:55] LABS: ARTERIAL BLOOD BASE EXCESS 16.4 mmol/L; ARTERIAL BLOOD FIO2 30%; ARTERIAL BLOOD HCO3 44.8 mmol/L (20-26); ARTERIAL BLOOD O2 SATURATION 95.8 % (94-98); ARTERIAL BLOOD PH 7.41 (7.35-7.45); ARTERIAL BLOOD PO2 83.6 mmHg (80-100)
[2017-12-20 17:56] LABS: ARTERIAL BLOOD PCO2 73.1 mmHg (35-45)
[2017-12-20] MEDS: NITROGLYCERIN 5 MG (0.2 MG/HR) PATCH.TD24 TD SCH (19:50)
[2017-12-20] MEDS: PHARMACY COMMUNICATION ORDER MC SCH (22:12)
[2017-12-20] MEDS: ATORVASTATIN CALCIUM 40 MG TABLET PO SCH (22:12)
[2017-12-21] MEDS: CEPHALEXIN 500 MG CAPSULE PO SCH ×3 (05:22→21:11)
[2017-12-21] MEDS: FUROSEMIDE INJ/PF 40 MG/4 ML SDV IV SCH ×2 (05:22→17:09)
[2017-12-21 05:25] LABS: BLOOD UREA NITROGEN 38 mg/dL (7-20); CHLORIDE 92 mmol/L (98-107); GLUCOSE 96 mg/dL (75-110); POTASSIUM 5.6 mmol/L (3.6-5.0); SODIUM 141.7 mmol/L (137-145)
[2017-12-21 05:43] LABS: ANION GAP 5 (5-19); CARBON DIOXIDE 45 mmol/L (22-30)
[2017-12-21 07:48] LABS: GLUCOSE BODY FLUID 87 mg/dL (.)
[2017-12-21] MEDS: DOCUSATE SODIUM 100 MG CAPSULE PO SCH (10:00)
[2017-12-21] MEDS: MULTIVITAMIN TABLET PO SCH (10:00)
[2017-12-21] MEDS: ASPIRIN 81 MG TABLET, ENT COATED PO SCH (10:00)
[2017-12-21] MEDS: POTASSIUM CHLORIDE 10 MEQ CAPSULE.ER PO SCH (10:00)
[2017-12-21] MEDS: APIXABAN 5 MG TABLET PO SCH ×2 (10:01→17:09)
[2017-12-21] MEDS: SERTRALINE HCL 50 MG TABLET PO SCH (10:01)
[2017-12-21] MEDS: CARVEDILOL 12.5 MG TABLET PO SCH ×2 (10:01→21:10)
[2017-12-21] MEDS: LIDOCAINE 5% (700 MG) TRANSDERMAL ADH..PATCH TP SCH (10:01)
[2017-12-21] MEDS: AMIODARONE HCL 200 MG TABLET PO SCH (10:01)
--- NOTE | 2017-12-21 13:24 | PDOC PROGRESS REPORT ---
Subjective Progress Note for:: 12/21/17 Subjective:: I seen patient resting at the bedside. He is awake alert and oriented. Patient has been doing relatively better. Yesterday he wore the BiPAP for 6 hours. His PCO2 trending down from 80 273.1. He has mild hyperkalemia with potassium of 5.3 for which she is given 15 g of Kayexalate. We will check his BMP in a.m. Reason For Visit: ANEMIA HIGH OUTPUT HEART FAILURE AND Physical Exam Vital Signs: Temp Pulse Resp BP Pulse Ox 97.4 F 60 22 H 110/57 L 97 12/21/17 07:10 12/21/17 07:10 12/21/17 07:10 12/21/17 07:10 12/21/17 07:10 Intake & Output 12/20/17 12/21/17 12/22/17 06:59 06:59 06:59 Intake Total 1325 951 Output Total 850 650 Balance 475 301 Weight 84.1 kg 84.1 kg Results Laboratory Results: 12/18/17 04:18 12/21/17 04:44 12/18/17 12/20/17 12/21/17 10:55 17:40 04:44 Carbonic Acid 2.20 H HCO3/H2CO3 Ratio 20:1 ABG pH 7.41 ABG pCO2 73.1 H* ABG pO2 83.6 ABG HCO3 44.8 H ABG O2 Saturation 95.8 ABG Base Excess 16.4 FiO2 30% Sodium 141.7 Potassium 5.6 H Chloride 92 L Carbon Dioxide 45 H* Anion Gap 5 BUN 38 H Creatinine 1.62 H Est GFR ( Amer) 51 L Est GFR (Non-Af Amer) 42 L Glucose 96 Calcium 8.0 L Fluid Glucose 87 12/16/17 12/16/17 12/17/17 22:22 22:22 04:26 Creatine Kinase 32 L CK-MB (CK-2) 0.58 0.72 Troponin I 0.034 0.040 12/17/17 12/17/17 12/17/17 04:26 10:17 10:17 Creatine Kinase 31 L 23 L CK-MB (CK-2) 0.85 Troponin I 0.037 Impressions: Thoracentesis Ultrasound 12/18/17 00:00 IMPRESSION: SUCCESSFUL THORACENTESIS USING ULTRASOUND GUIDANCE. Chest X-Ray 12/18/17 13:15 IMPRESSION: STABLE APPEARANCE OF THE CHEST. NO PNEUMOTHORAX 2 HOURS AFTER THORACENTESIS. Assessment & Plan - Diagnosis (1) Acute on chronic systolic congestive heart failure, NYHA class 3 Is this a current diagnosis for this admission?: Yes Plan: Continue Lasix and other cardiac protective medications. I discontinued his Klor-Con since he has hyperkalemia. (2) COPD exacerbation Is this a current diagnosis for this admission?: Yes Plan: Continue bronchodilators, supplemental oxygen and incentive spirometry. (3) LEYLA (acute kidney injury) Is this a current diagnosis for this admission?: Yes Plan: Stable. Slightly worsened with creatinine of 1.62 (4) Pleural effusion, left Is this a current diagnosis for this admission?: Yes Plan: Ultrasound-guided thoracentesis. (5) Obstructive sleep apnea Is this a current diagnosis for this admission?: Yes Plan: Continue CPAP (6) Acute on chronic respiratory failure Is this a current diagnosis for this admission?: Yes Plan: Continue BiPAP, supplemental oxygen, bronchodilator. (7) Hyperkalemia Is this a current diagnosis for this admission?: Yes Plan: Kayexalate start. BMP in a.m.
[2017-12-21] MEDS: OXYCODONE HCL IR 5 MG TABLET PO PRN ×2 (14:01→20:17)
[2017-12-21] MEDS: OXYCODONE-ACETAMINOPHEN 5-325 MG TABLET PO PRN ×2 (14:02→20:17)
[2017-12-21 18:47] LABS: ARTERIAL BLOOD BASE EXCESS 17.7 mmol/L; ARTERIAL BLOOD H2CO3 2.29 mmol/L (1.05-1.35); ARTERIAL BLOOD HCO3 45.5 mmol/L (20-26); ARTERIAL BLOOD O2 SATURATION 94.9 % (94-98); ARTERIAL BLOOD PO2 78.4 mmHg (80-100); ARTERIAL BLOOD TOTAL CO2 47.8 mmol/L (23-27)
[2017-12-21 18:48] LABS: ARTERIAL BLOOD FIO2 3L
[2017-12-21] MEDS: NITROGLYCERIN 5 MG (0.2 MG/HR) PATCH.TD24 TD SCH (19:09)
[2017-12-21] MEDS: ATORVASTATIN CALCIUM 40 MG TABLET PO SCH (21:11)
[2017-12-21] MEDS: PHARMACY COMMUNICATION ORDER MC SCH (21:11)
[2017-12-22] MEDS: OXYCODONE-ACETAMINOPHEN 5-325 MG TABLET PO PRN ×4 (02:10→21:33)
[2017-12-22] MEDS: OXYCODONE HCL IR 5 MG TABLET PO PRN ×4 (02:11→21:32)
[2017-12-22 05:29] LABS: BLOOD UREA NITROGEN 39 mg/dL (7-20); CALCIUM 8.1 mg/dL (8.4-10.2); CHLORIDE 90 mmol/L (98-107); GLUCOSE 90 mg/dL (75-110); SODIUM 141.5 mmol/L (137-145)
[2017-12-22 05:33] LABS: POTASSIUM 5.4 mmol/L (3.6-5.0)
[2017-12-22 05:40] LABS: ANION GAP 8 (5-19); CARBON DIOXIDE 44 mmol/L (22-30)
[2017-12-22] MEDS: CEPHALEXIN 500 MG CAPSULE PO SCH (05:49)
[2017-12-22] MEDS: FUROSEMIDE INJ/PF 40 MG/4 ML SDV IV SCH ×2 (05:49→17:37)
[2017-12-22] MEDS: AMIODARONE HCL 200 MG TABLET PO SCH (09:26)
[2017-12-22] MEDS: DOCUSATE SODIUM 100 MG CAPSULE PO SCH (09:26)
[2017-12-22] MEDS: ASPIRIN 81 MG TABLET, ENT COATED PO SCH (09:27)
[2017-12-22] MEDS: CARVEDILOL 12.5 MG TABLET PO SCH ×2 (09:27→21:32)
[2017-12-22] MEDS: SERTRALINE HCL 50 MG TABLET PO SCH (09:27)
[2017-12-22] MEDS: MULTIVITAMIN TABLET PO SCH (09:27)
[2017-12-22] MEDS: APIXABAN 5 MG TABLET PO SCH ×2 (09:27→17:37)
[2017-12-22] MEDS: LIDOCAINE 5% (700 MG) TRANSDERMAL ADH..PATCH TP SCH (09:30)
[2017-12-22] MEDS: METOLAZONE 5 MG TABLET PO SCH (11:09)
[2017-12-22] MEDS ORDERED: FUROSEMIDE INJ/PF 40 MG/4 ML SDV IV ONE (11:30)
--- NOTE | 2017-12-22 13:36 | PDOC PROGRESS REPORT ---
Subjective Progress Note for:: 12/22/17 Subjective:: This is a 72 years old male patient with multiple comorbidities including hypertension, coronary artery disease and recent coronary artery bypass graft and pacemaker placement, COPD, obstructive sleep apnea and PE on Eliquis presents with shortness of breath secondary to acute on chronic systolic congestive heart failure exacerbation. Patient has been on IV Lasix and cardioprotective medications. For his obstructive sleep apnea and COPD patient has been on BiPAP but the patient is noncompliant. Reason For Visit: ANEMIA HIGH OUTPUT HEART FAILURE AND Physical Exam Vital Signs: Temp Pulse Resp BP Pulse Ox 97.7 F 59 L 12 99/55 L 93 12/22/17 11:17 12/22/17 11:17 12/22/17 11:17 12/22/17 11:17 12/22/17 11:17 Intake & Output 12/21/17 12/22/17 12/23/17 06:59 06:59 06:59 Intake Total 951 458 0 Output Total 650 1325 825 Balance 301 -867 -825 Weight 84.1 kg General appearance: PRESENT: mild distress Head exam: PRESENT: atraumatic Eye exam: PRESENT: conjunctiva pink Respiratory exam: PRESENT: clear to auscultation shivani. ABSENT: rales, rhonchi, wheezes Cardiovascular exam: PRESENT: RRR. ABSENT: diastolic murmur, rubs, systolic murmur GI/Abdominal exam: PRESENT: normal bowel sounds, soft. ABSENT: distended, guarding, mass, organolmegaly, rebound, tenderness Extremities exam: PRESENT: other - Bilateral +3 edema Results Laboratory Results: 12/18/17 04:18 12/22/17 04:26 12/21/17 12/21/17 12/22/17 17:55 18:40 04:26 Carbonic Acid 2.29 H HCO3/H2CO3 Ratio 19:1 ABG pH 7.40 ABG pCO2 76.0 H* ABG pO2 78.4 L ABG HCO3 45.5 H ABG O2 Saturation 94.9 ABG Base Excess 17.7 FiO2 3L Sodium 141.5 Potassium 5.4 H Chloride 90 L Carbon Dioxide 44 H* Anion Gap 8 BUN 39 H Creatinine 1.75 H Est GFR ( Amer) 46 L Est GFR (Non-Af Amer) 38 L Glucose 90 Calcium 8.1 L Stool Occult Blood NEGATIVE 12/18/17 10:55 Thoracic Fluid Gram Stain - Final 12/18/17 10:55 Thoracic Fluid Body Fluid Culture - Final NO AEROBIC OR ANAEROBIC ORGANISMS RECOVERED 12/16/17 12/16/17 12/17/17 22:22 22:22 04:26 Creatine Kinase 32 L CK-MB (CK-2) 0.58 0.72 Troponin I 0.034 0.040 12/17/17 12/17/17 12/17/17 04:26 10:17 10:17 Creatine Kinase 31 L 23 L CK-MB (CK-2) 0.85 Troponin I 0.037 Impressions: Thoracentesis Ultrasound 12/18/17 00:00 IMPRESSION: SUCCESSFUL THORACENTESIS USING ULTRASOUND GUIDANCE. Chest X-Ray 12/18/17 13:15 IMPRESSION: STABLE APPEARANCE OF THE CHEST. NO PNEUMOTHORAX 2 HOURS AFTER THORACENTESIS. Assessment & Plan - Diagnosis (1) Acute on chronic systolic congestive heart failure, NYHA class 3 Is this a current diagnosis for this admission?: Yes Plan: Continue current regimen (2) COPD exacerbation Is this a current diagnosis for this admission?: Yes Plan: Continue bronchodilators and BiPAP (3) LEYLA (acute kidney injury) Is this a current diagnosis for this admission?: Yes Plan: Improving (4) Pleural effusion, left Is this a current diagnosis for this admission?: Yes Plan: Status post ultrasound-guided thoracentesis and about 750 mL of straw-colored fluid removed. (5) Obstructive sleep apnea Is this a current diagnosis for this admission?: Yes Plan: Continue BiPAP (6) Acute on chronic respiratory failure Is this a current diagnosis for this admission?: Yes Plan: Multiple factors are playing for his acute on chronic respiratory failure including his COPD SUNNY and CHF exacerbation. His ABG shows CO2 retention. (7) Hyperkalemia Is this a current diagnosis for this admission?: Yes - Time Time Spent with patient: 25-34 minutes
[2017-12-22] MEDS: NITROGLYCERIN 5 MG (0.2 MG/HR) PATCH.TD24 TD SCH (20:34)
[2017-12-22] MEDS: ATORVASTATIN CALCIUM 40 MG TABLET PO SCH (21:32)
[2017-12-22] MEDS: PHARMACY COMMUNICATION ORDER MC SCH (21:33)
[2017-12-23] MEDS: FUROSEMIDE INJ/PF 40 MG/4 ML SDV IV SCH ×2 (05:26→17:14)
[2017-12-23] MEDS: OXYCODONE-ACETAMINOPHEN 5-325 MG TABLET PO PRN ×3 (05:27→18:02)
[2017-12-23] MEDS: OXYCODONE HCL IR 5 MG TABLET PO PRN ×3 (05:27→18:02)
[2017-12-23 07:27] LABS: HEMOGLOBIN 8.5 g/dL (13.5-17.0); MEAN CORPUSCULAR HEMOGLOBIN 28.9 pg (27.0-33.4); MEAN CORPUSCULAR HGB CONC 32.7 g/dL (32.0-36.0); MEAN CORPUSCULAR VOLUME 89 fl (80-97); PLATELET COUNT 138 10^3/uL (150-450); RED BLOOD COUNT 2.93 10^6/uL (4.35-5.55); RED CELL DISTRIBUTION WIDTH 16.8 % (11.5-14.0); WHITE BLOOD COUNT 4.1 10^3/uL (4.0-10.5)
[2017-12-23] MEDS ORDERED: LACTULOSE SYRUP 20 GM/30 ML UDCUP PO ONE (07:30)
[2017-12-23 07:44] LABS: BLOOD UREA NITROGEN 38 mg/dL (7-20); CALCIUM 8.3 mg/dL (8.4-10.2); CHLORIDE 86 mmol/L (98-107); GLUCOSE 81 mg/dL (75-110); POTASSIUM 4.6 mmol/L (3.6-5.0); SODIUM 140.6 mmol/L (137-145)
[2017-12-23 08:00] LABS: ANION GAP 8 (5-19)
[2017-12-23 08:01] LABS: CARBON DIOXIDE 47 mmol/L (22-30)
[2017-12-23] MEDS: AMIODARONE HCL 200 MG TABLET PO SCH (09:21)
[2017-12-23] MEDS: MULTIVITAMIN TABLET PO SCH (09:22)
[2017-12-23] MEDS: APIXABAN 5 MG TABLET PO SCH ×2 (09:22→17:14)
[2017-12-23] MEDS: SERTRALINE HCL 50 MG TABLET PO SCH (09:22)
[2017-12-23] MEDS: ASPIRIN 81 MG TABLET, ENT COATED PO SCH (09:22)
[2017-12-23] MEDS: DOCUSATE SODIUM 100 MG CAPSULE PO SCH (09:22)
[2017-12-23] MEDS: LIDOCAINE 5% (700 MG) TRANSDERMAL ADH..PATCH TP SCH (09:38)
[2017-12-23] MEDS: CARVEDILOL 12.5 MG TABLET PO SCH ×2 (09:38→22:46)
[2017-12-23] MEDS: NA PHOS,M-B/NA PHOS,DI-BA (ADULT) 133 ML ENEMA PR SCH (12:16)
[2017-12-23] MEDS: METOLAZONE 5 MG TABLET PO SCH (14:10)
--- NOTE | 2017-12-23 18:19 | PDOC PROGRESS REPORT ---
Subjective Progress Note for:: 12/23/17 Subjective:: Patient seen and examined with nurse who states patient noncompliance with BiPAP overnight. Asleep but arousable complaining of fatigue and daytime sleepiness, denies pain, lying flat and comfortable. Reason For Visit: ANEMIA HIGH OUTPUT HEART FAILURE AND Physical Exam Vital Signs: Temp Pulse Resp BP Pulse Ox 97.9 F 59 L 16 99/49 L 96 12/23/17 15:51 12/23/17 15:51 12/23/17 15:51 12/23/17 15:51 12/23/17 15:51 Intake & Output 12/22/17 12/23/17 12/24/17 11:59 11:59 11:59 Intake Total 458 601 387 Output Total 1325 9305 2175 Balance -862 -1820 -0423 Weight 121.3 kg General appearance: PRESENT: no acute distress, well-developed, well-nourished Head exam: PRESENT: atraumatic, normocephalic Eye exam: PRESENT: conjunctiva pink, EOMI, PERRLA. ABSENT: scleral icterus Ear exam: PRESENT: normal external ear exam Mouth exam: PRESENT: moist, tongue midline Neck exam: ABSENT: carotid bruit, JVD, lymphadenopathy, thyromegaly Respiratory exam: PRESENT: clear to auscultation shivani. ABSENT: rales, rhonchi, wheezes Cardiovascular exam: PRESENT: RRR. ABSENT: diastolic murmur, rubs, systolic murmur Pulses: PRESENT: normal dorsalis pedis pul Vascular exam: PRESENT: normal capillary refill GI/Abdominal exam: PRESENT: normal bowel sounds, soft. ABSENT: distended, guarding, mass, organolmegaly, rebound, tenderness Rectal exam: PRESENT: deferred Extremities exam: PRESENT: full ROM. ABSENT: calf tenderness, clubbing, pedal edema Neurological exam: PRESENT: alert, awake, oriented to person, oriented to place , oriented to time, oriented to situation, CN II-XII grossly intact. ABSENT: motor sensory deficit Psychiatric exam: PRESENT: appropriate affect, normal mood. ABSENT: homicidal ideation, suicidal ideation Skin exam: PRESENT: dry, intact, warm. ABSENT: cyanosis, rash Results Laboratory Results: 12/23/17 06:50 12/23/17 06:50 12/23/17 12/23/17 06:50 06:50 WBC 4.1 RBC 2.93 L Hgb 8.5 L Hct 26.0 L MCV 89 MCH 28.9 MCHC 32.7 RDW 16.8 H Plt Count 138 L Sodium 140.6 Potassium 4.6 Chloride 86 L Carbon Dioxide 47 H* Anion Gap 8 BUN 38 H Creatinine 1.69 H Est GFR ( Amer) 48 L Est GFR (Non-Af Amer) 40 L Glucose 81 Calcium 8.3 L 12/16/17 12/16/17 12/17/17 22:22 22:22 04:26 Creatine Kinase 32 L CK-MB (CK-2) 0.58 0.72 Troponin I 0.034 0.040 12/17/17 12/17/17 12/17/17 04:26 10:17 10:17 Creatine Kinase 31 L 23 L CK-MB (CK-2) 0.85 Troponin I 0.037 Impressions: Thoracentesis Ultrasound 12/18/17 00:00 IMPRESSION: SUCCESSFUL THORACENTESIS USING ULTRASOUND GUIDANCE. Chest X-Ray 12/18/17 13:15 IMPRESSION: STABLE APPEARANCE OF THE CHEST. NO PNEUMOTHORAX 2 HOURS AFTER THORACENTESIS. Assessment & Plan - Diagnosis (1) Anemia Qualifiers: Anemia type: iron deficiency Is this a current diagnosis for this admission?: Yes Plan: Microcytic anemia, verified by evaluation of first blood sample. Follow-up was an error after administration of IV iron. follow-up fecal occult stool and outpatient colonoscopy. Hemoglobin stable (2) Obstructive sleep apnea Is this a current diagnosis for this admission?: Yes Plan: BiPAP and education (3) ARF (acute renal failure) Qualifiers: Acute renal failure type: unspecified Qualified Code(s): N17.9 - Acute kidney failure, unspecified Is this a current diagnosis for this admission?: Yes Plan: At baseline, avoid nephrotoxic meds and doses reevaluate chemistry (4) COPD exacerbation Is this a current diagnosis for this admission?: Yes Plan: Albuterol and Atrovent, incentive spirometry supplemental oxygen (5) Morbid obesity with BMI of 40.0-44.9, adult Is this a current diagnosis for this admission?: Yes Plan: Morbid obesity will evaluate for metabolic cause with evaluation of thyroid function and dietitian consultation (6) Combined systolic and diastolic cardiac dysfunction Is this a current diagnosis for this admission?: Yes Plan: Obtain recent echocardiogram, otherwise will obtain post coronary artery bypass echo now. Optimize fluid status, anemia and apneic state.
[2017-12-23] MEDS: ATORVASTATIN CALCIUM 40 MG TABLET PO SCH (22:47)
[2017-12-23] MEDS: PHARMACY COMMUNICATION ORDER MC SCH (22:48)
[2017-12-23] MEDS: NITROGLYCERIN 5 MG (0.2 MG/HR) PATCH.TD24 TD SCH (23:30)
[2017-12-24] MEDS: OXYCODONE HCL IR 5 MG TABLET PO PRN ×4 (00:02→19:35)
[2017-12-24] MEDS: OXYCODONE-ACETAMINOPHEN 5-325 MG TABLET PO PRN ×4 (00:03→19:35)
[2017-12-24 05:55] LABS: BLOOD UREA NITROGEN 43 mg/dL (7-20); CALCIUM 8.5 mg/dL (8.4-10.2); CHLORIDE 85 mmol/L (98-107); GLUCOSE 84 mg/dL (75-110); POTASSIUM 4.5 mmol/L (3.6-5.0); SODIUM 138.2 mmol/L (137-145)
[2017-12-24 06:03] LABS: ANION GAP 7 (5-19)
[2017-12-24 06:04] LABS: CARBON DIOXIDE 46 mmol/L (22-30)
[2017-12-24] MEDS: FUROSEMIDE INJ/PF 40 MG/4 ML SDV IV SCH (06:25)
--- NOTE | 2017-12-24 08:55 | RADIOLOGY REPORT (SQ) ---
EXAM DESCRIPTION: CHEST 2 VIEWS COMPLETED DATE/TIME: 12/24/2017 8:47 am REASON FOR STUDY: Shortness of breath COMPARISON: 05/31/2017 EXAM PARAMETERS: NUMBER OF VIEWS: two views TECHNIQUE: Digital Frontal and Lateral radiographic views of the chest acquired. RADIATION DOSE: NA LIMITATIONS: none FINDINGS: LUNGS AND PLEURA: Large left pleural effusion. Right lung is clear. MEDIASTINUM AND HILAR STRUCTURES: No masses or contour abnormalities. HEART AND VASCULAR STRUCTURES: Heart slightly enlarged without overt failure. BONES: Interval sternal wires. HARDWARE: Extensive cardiac hardware including pacemaker defibrillator. OTHER: No other significant finding. IMPRESSION: Interval cardiac surgery. Moderate to large left pleural effusion. TECHNICAL DOCUMENTATION: JOB ID: [id number] [employer]- All Rights Reserved Reading location - IP/workstation name: [email or web address]
[2017-12-24] MEDS: LIDOCAINE 5% (700 MG) TRANSDERMAL ADH..PATCH TP SCH (10:35)
[2017-12-24] MEDS: AMIODARONE HCL 200 MG TABLET PO SCH (10:36)
[2017-12-24] MEDS: MULTIVITAMIN TABLET PO SCH (10:36)
[2017-12-24] MEDS: SERTRALINE HCL 50 MG TABLET PO SCH (10:36)
[2017-12-24] MEDS: APIXABAN 5 MG TABLET PO SCH ×2 (10:37→17:34)
[2017-12-24] MEDS: CARVEDILOL 12.5 MG TABLET PO SCH ×2 (10:37→23:04)
[2017-12-24] MEDS: DOCUSATE SODIUM 100 MG CAPSULE PO SCH (10:37)
[2017-12-24] MEDS: ASPIRIN 81 MG TABLET, ENT COATED PO SCH (10:37)
[2017-12-24] MEDS: NA PHOS,M-B/NA PHOS,DI-BA (ADULT) 133 ML ENEMA PR SCH (10:37)
--- NOTE | 2017-12-24 12:34 | PDOC PROGRESS REPORT ---
Subjective Progress Note for:: 12/24/17 Subjective:: The patient is a 72-year-old gentleman with past medical history of Hypertension Diabetes, diet controlled Coronary artery disease COPD on 3L by NC Obstructive sleep apnea Diastolic CHF Obesity hypoventilation syndrome CABG Atrial fibrillation Chronic pain Depression Chronic anticoagulation with Eliquis History of pulmonary embolism Arthritis AICD Morbid obesity Echocardiogram done on December 19 showed a left ventricular ejection fraction of 65 % With mild tricuspid regurgitation. Right ventricular systolic pressure of 43 mmHg He presented to the emergency room on December 16 with shortness of breath and edema a left-sided pleural effusion and acute renal failure. The patient was started on BiPAP, diuresed with Lasix and underwent ultrasound- guided thoracentesis- 720 cc fluid removed. Feels better in general. Reason For Visit: ANEMIA HIGH OUTPUT HEART FAILURE AND Physical Exam Vital Signs: Temp Pulse Resp BP Pulse Ox 97.6 F 61 12 119/62 97 12/24/17 03:19 12/24/17 03:19 12/24/17 04:12 12/24/17 03:19 12/24/17 04:12 Intake & Output 12/23/17 12/24/17 12/25/17 06:59 06:59 06:59 Intake Total 601 635 Output Total 3675 8555 Balance -1644 -9189 Weight 121.3 kg 117.5 kg General appearance: PRESENT: no acute distress, well-developed, well-nourished Head exam: PRESENT: normocephalic Ear exam: PRESENT: normal external ear exam Neck exam: ABSENT: tracheal deviation Respiratory exam: PRESENT: symmetrical, unlabored Cardiovascular exam: PRESENT: RRR GI/Abdominal exam: PRESENT: soft. ABSENT: tenderness Rectal exam: PRESENT: deferred Neurological exam: PRESENT: alert, awake Results Laboratory Results: 12/23/17 06:50 12/24/17 04:39 12/23/17 12/24/17 06:50 04:39 Sodium 140.6 138.2 Potassium 4.6 4.5 Chloride 86 L 85 L Carbon Dioxide 47 H* 46 H* Anion Gap 8 7 BUN 38 H 43 H Creatinine 1.69 H 1.82 H Est GFR ( Amer) 48 L 44 L Est GFR (Non-Af Amer) 40 L 37 L Glucose 81 84 Calcium 8.3 L 8.5 12/16/17 12/16/17 12/17/17 22:22 22:22 04:26 Creatine Kinase 32 L CK-MB (CK-2) 0.58 0.72 Troponin I 0.034 0.040 12/17/17 12/17/17 12/17/17 04:26 10:17 10:17 Creatine Kinase 31 L 23 L CK-MB (CK-2) 0.85 Troponin I 0.037 Impressions: Thoracentesis Ultrasound 12/18/17 00:00 IMPRESSION: SUCCESSFUL THORACENTESIS USING ULTRASOUND GUIDANCE. Chest X-Ray 12/18/17 13:15 IMPRESSION: STABLE APPEARANCE OF THE CHEST. NO PNEUMOTHORAX 2 HOURS AFTER THORACENTESIS. Assessment & Plan - Diagnosis (1) LEYLA (acute kidney injury) Is this a current diagnosis for this admission?: Yes Plan: Monitor. Avoid nephrotoxic agents. KELSEY inhibitor and diuretics will be on hold. (2) Acute on chronic respiratory failure Is this a current diagnosis for this admission?: Yes Plan: Multifactorial due to pleural effusion diastolic CHF exacerbation and COPD exacerbation. (3) COPD exacerbation Is this a current diagnosis for this admission?: Yes Plan: Improving. Continue outpatient inhalers (5) Hyperkalemia Is this a current diagnosis for this admission?: Yes Plan: Resolved. (6) Pleural effusion, left Is this a current diagnosis for this admission?: Yes Plan: Status post thoracentesis. Fluid was transudative. Cultures negative. (7) Diabetes mellitus Qualifiers: Diabetes mellitus type: type 2 Diabetes mellitus fdc insulin use: without superintendent nonselling use Diabetes mellitus complication status: with unspecified complications Qualified Code(s): E11.8 - Type 2 diabetes mellitus with unspecified complications Is this a current diagnosis for this admission?: Yes Plan: Diet control. (8) Hypertension Qualifiers: Hypertension type: essential hypertension Qualified Code(s): I10 - Essential (primary) hypertension Is this a current diagnosis for this admission?: Yes Plan: Stable. (9) Morbid obesity with BMI of 40.0-44.9, adult Is this a current diagnosis for this admission?: Yes Plan: Calorie control (10) AICD present, double chamber Is this a current diagnosis for this admission?: Yes (11) CAD (coronary artery disease) Is this a current diagnosis for this admission?: Yes Plan: On aspirin and statin Coreg (12) History of pulmonary embolism Is this a current diagnosis for this admission?: Yes (13) History of atrial fibrillation Is this a current diagnosis for this admission?: Yes Plan: On amiodarone and Eliquis - Time Time Spent with patient: 35 or more minutes
[2017-12-24] MEDS: NITROGLYCERIN 5 MG (0.2 MG/HR) PATCH.TD24 TD SCH (19:32)
[2017-12-24] MEDS: PHARMACY COMMUNICATION ORDER MC SCH (21:15)
[2017-12-24] MEDS: ATORVASTATIN CALCIUM 40 MG TABLET PO SCH (21:15)
[2017-12-25] MEDS: OXYCODONE-ACETAMINOPHEN 5-325 MG TABLET PO PRN ×4 (02:33→22:16)
[2017-12-25] MEDS: OXYCODONE HCL IR 5 MG TABLET PO PRN ×4 (02:34→22:16)
[2017-12-25 06:27] LABS: BLOOD UREA NITROGEN 46 mg/dL (7-20); CALCIUM 8.4 mg/dL (8.4-10.2); CHLORIDE 85 mmol/L (98-107); GLUCOSE 83 mg/dL (75-110); PHOSPHORUS 4.3 mg/dL (2.5-4.5); POTASSIUM 4.5 mmol/L (3.6-5.0); SODIUM 138.8 mmol/L (137-145)
[2017-12-25 06:39] LABS: ANION GAP 7 (5-19)
[2017-12-25 06:41] LABS: CARBON DIOXIDE 47 mmol/L (22-30)
[2017-12-25] MEDS: APIXABAN 5 MG TABLET PO SCH ×2 (09:33→17:43)
[2017-12-25] MEDS: AMIODARONE HCL 200 MG TABLET PO SCH (09:34)
[2017-12-25] MEDS: MULTIVITAMIN TABLET PO SCH (09:34)
[2017-12-25] MEDS: DOCUSATE SODIUM 100 MG CAPSULE PO SCH (09:34)
[2017-12-25] MEDS: ASPIRIN 81 MG TABLET, ENT COATED PO SCH (09:34)
[2017-12-25] MEDS: SERTRALINE HCL 50 MG TABLET PO SCH (09:34)
[2017-12-25] MEDS: LIDOCAINE 5% (700 MG) TRANSDERMAL ADH..PATCH TP SCH (09:35)
[2017-12-25] MEDS ORDERED: FUROSEMIDE INJ/PF 40 MG/4 ML SDV IV SCH (10:00)
--- NOTE | 2017-12-25 12:10 | PDOC PROGRESS REPORT ---
Subjective Progress Note for:: 12/25/17 Subjective:: The patient is a 72-year-old gentleman with past medical history of Hypertension Diabetes, diet controlled Coronary artery disease COPD on 3L by NC Obstructive sleep apnea Diastolic CHF Obesity hypoventilation syndrome CABG Atrial fibrillation Chronic pain Depression Chronic anticoagulation with Eliquis History of pulmonary embolism Arthritis AICD Morbid obesity Echocardiogram done on December 19 showed a left ventricular ejection fraction of 65 % Mild tricuspid regurgitation. Right ventricular systolic pressure was 43 mmHg He presented to the emergency room on December 16 with shortness of breath and edema a left-sided pleural effusion and acute renal failure. The patient was started on BiPAP, diuresed with Lasix and underwent ultrasound- guided thoracentesis- 720 cc fluid removed. Still requiring 3L NC O2. sats 68% on RA at rest, very weak and debilitated. Repeat CXR on 12/24 showing large L pleural effusion. Significant hypercapnia and somnolence off BiPAP. Pulmonology consult requested. Reason For Visit: ANEMIA HIGH OUTPUT HEART FAILURE AND Physical Exam Vital Signs: Temp Pulse Resp BP Pulse Ox 97.8 F 59 L 12 110/60 97 12/25/17 08:39 12/25/17 08:39 12/25/17 08:39 12/25/17 08:39 12/25/17 08:39 Intake & Output 12/24/17 12/25/17 12/26/17 06:59 06:59 06:59 Intake Total 635 978 Output Total 3375 3000 Balance -2739 Weight 117.5 kg 117.5 kg General appearance: PRESENT: no acute distress, obese Head exam: PRESENT: normocephalic Eye exam: ABSENT: scleral icterus Mouth exam: PRESENT: moist Respiratory exam: PRESENT: crackles, decreased breath sounds, symmetrical, unlabored. ABSENT: wheezes Cardiovascular exam: PRESENT: RRR GI/Abdominal exam: PRESENT: normal bowel sounds, soft. ABSENT: tenderness Rectal exam: PRESENT: deferred Extremities exam: PRESENT: pedal edema Neurological exam: PRESENT: alert, awake, oriented to person, oriented to place Results Laboratory Results: 12/23/17 06:50 12/25/17 05:12 12/24/17 12/25/17 04:39 05:12 Sodium 138.8 Potassium 4.5 Chloride 85 L Carbon Dioxide 47 H* Anion Gap 7 BUN 46 H Creatinine 1.64 H Est GFR ( Amer) 50 L Est GFR (Non-Af Amer) 41 L Glucose 83 Calcium 8.4 Phosphorus 4.3 Magnesium 2.1 2.1 12/16/17 12/16/17 12/17/17 22:22 22:22 04:26 Creatine Kinase 32 L CK-MB (CK-2) 0.58 0.72 Troponin I 0.034 0.040 NT-Pro-B Natriuret Pep 12/17/17 12/17/17 12/17/17 04:26 10:17 10:17 Creatine Kinase 31 L 23 L CK-MB (CK-2) 0.85 Troponin I 0.037 NT-Pro-B Natriuret Pep 12/24/17 12/25/17 04:39 05:12 Creatine Kinase CK-MB (CK-2) Troponin I NT-Pro-B Natriuret Pep 3500 H 3040 H Impressions: Thoracentesis Ultrasound 12/18/17 00:00 IMPRESSION: SUCCESSFUL THORACENTESIS USING ULTRASOUND GUIDANCE. Chest X-Ray 12/24/17 00:00 IMPRESSION: Interval cardiac surgery. Moderate to large left pleural effusion. Assessment & Plan - Diagnosis (1) LEYLA (acute kidney injury) Is this a current diagnosis for this admission?: Yes Plan: Monitor kidney function. Avoid nephrotoxic agents. KELSEY inhibitor on hold. (2) Acute on chronic respiratory failure Is this a current diagnosis for this admission?: Yes Plan: Multifactorial due to pleural effusion diastolic CHF exacerbation and COPD exacerbation. (3) COPD exacerbation Is this a current diagnosis for this admission?: Yes Plan: Improving. Continue outpatient inhalers (4) Dyspnea Qualifiers: Dyspnea type: orthopnea Qualified Code(s): R06.01 - Orthopnea Is this a current diagnosis for this admission?: Yes (5) Hyperkalemia Is this a current diagnosis for this admission?: Yes Plan: Resolved. (6) Pleural effusion, left Is this a current diagnosis for this admission?: Yes Plan: Status post thoracentesis. Fluid was transudative. Cultures negative. Recurred. 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 (8) Hypertension Qualifiers: Hypertension type: essential hypertension Qualified Code(s): I10 - Essential (primary) hypertension Is this a current diagnosis for this admission?: Yes Plan: Stable. (9) Morbid obesity with BMI of 40.0-44.9, adult Is this a current diagnosis for this admission?: Yes Plan: Calorie control (10) AICD present, double chamber Is this a current diagnosis for this admission?: Yes (11) CAD (coronary artery disease) Is this a current diagnosis for this admission?: Yes Plan: On Aspirin Statin Coreg (12) History of pulmonary embolism Is this a current diagnosis for this admission?: Yes Plan: On Eliquis (13) History of atrial fibrillation Is this a current diagnosis for this admission?: Yes Plan: On amiodarone and Eliquis (14) Hypercapnia Is this a current diagnosis for this admission?: Yes Plan: Likely due to SUNNY, will need BiPAP at home. (15) Debility Is this a current diagnosis for this admission?: Yes Plan: PT ambulate, OOB - Time Time Spent with patient: 35 or more minutes
--- NOTE | 2017-12-25 16:39 | PDOC CONSULTATION ---
Consultation Consult Date: 12/25/17 Attending physician:: CONNIE GALE Consult reason:: desean chronic resp failure History of Present Illness Admission Date/PCP: 12/16/17 19:31 MAURICE ORTIZ DO History of Present Illness: DANIEL OLIVA is a 72 year old male,complains of cough lethargy decreasing respiratory status subsequently resulted in admission to the hospital been somewhat recalcitrant to using his BiPAP he denies nausea vomiting diarrhea fevers chills rhinorrhea postnasal drip sore throat does complain some tightness in his chest is relieved with slow breathing and intermittent episodes of edema admits to smoking 1 pack a day for 45 years but has not smoked in last 10 years he missed exposure large amounts of passive smoke as a child as well as an adult he states that he worked 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 he has no pets no recent travel sleeps on 2-3 pillows frequent PND frequent nocturnal cough and intermittent episodes of edema he admits to snoring restless sleep nocturia 3-5 times per night unrestful sleep and excessive daytime somnolence Past Medical History Cardiac Medical History: Reports: Congestive Heart Failure, Coronary Artery Disease, Myocardial Infarction, Hypertension, Pulmonary Embolism Pulmonary Medical History: Reports: Chronic Obstructive Pulmonary Disease (COPD) EENT Medical History: Denies: Nose Neurological Medical History: Denies: Multiple Sclerosis, Seizures Endocrine Medical History: Reports: Diabetes Mellitus Type 2 - History of same, but only on medication for short time. Renal/ Medical History: Denies: End Stage Renal Disease GI Medical History: Denies: Crohn's Disease, Ulcerative Colitis Musculoskeltal Medical History: Reports: Arthritis Skin Medical History: Denies: Psoriasis Psychiatric Medical History: Reports: Depression Traumatic Medical History: Denies: Traumatic Brain Injury Hematology: Denies: Hemophilia, Sickle Cell Disease Infectious Medical History: Denies: Hepatitis B, Hepatitis C Past Surgical History Past Surgical History: Reports: Cardiac Catheterization, Coronary Artery Bypass Graft, Coronary Stent, Pacemaker - Initial device removed for infection; subsequent AICD implant., Tonsillectomy Social History Information Source: Patient, [facility] Records Lives with: Family Smoking Status: Former Smoker Cigarettes Packs Per Day: 1 Number of Years Smokin Passive smoke exposure as: Both Frequency of Alcohol Use: Rare Hx Recreational Drug Use: No Drugs: None Hx Prescription Drug Abuse: No Do you have pets?: No Have you had any respiratory illnesses as a child?: No Have you been exposed to any sick contacts recently?: No Have you had any recent respiratory illnesses?: No Have you travelled outside of [place] in the past 12 months?: No - Advance Directive Resuscitation Status: Full Code Family History Family History: CAD, COPD Parental Family History Reviewed: Yes Children Family History Reviewed: Yes Sibling(s) Family History Reviewed.: Yes Medication/Allergy Home Medications: Amiodarone HCl [Pacerone] 200 mg PO DAILY 12/16/17 Apixaban [Eliquis] 5 mg PO Q12 12/16/17 Aspirin [Ecotrin 81 mg EC Tablet] 81 mg PO DAILY 12/16/17 Atorvastatin Calcium [Lipitor 40 mg Tablet] 40 mg PO DAILY 12/16/17 Cephalexin [Cephalexin 500 MG Capsule] 1 cap PO Q8 12/16/17 Furosemide [Lasix 40 mg Tablet] 40 mg PO BIDP PRN 12/16/17 Methocarbamol [Robaxin 750 mg Tablet] 750 mg PO Q6HP PRN 12/16/17 Multivitamin [Tab-A-Caroline (Multiple Vitamin) Tablet] 1 tab PO DAILY 12/16/17 Omeprazole 20 mg PO QAM 12/16/17 Oxycodone HCl/Acetaminophen [Endocet 10-325 mg Tablet] 1 tab PO Q6HP PRN Sertraline HCl [Zoloft 50 mg Tablet] 50 mg PO DAILY 12/16/17 Umeclidinium Brm/Vilanterol Tr [Anoro Ellipta 62.5-25 Mcg INH] 1 puff IH QAM Allergies/Adverse Reactions: No Known Allergies Allergy (Verified 08/05/17 14:09) Review of Systems Constitutional: ABSENT: anorexia, headache(s), night sweats Eyes: ABSENT: visual disturbances Ears: ABSENT: hearing changes Nose, Mouth, and Throat: ABSENT: headache(s), mouth pain, sore throat Cardiovascular: PRESENT: dyspnea on exertion. ABSENT: palpitations Respiratory: PRESENT: dyspnea. ABSENT: hemoptysis Gastrointestinal: PRESENT: constipation. ABSENT: abdominal pain, bloating, coffee ground emesis, dysphagia, hematemesis, hematochezia, melena Genitourinary: ABSENT: dysuria, hematuria Musculoskeletal: ABSENT: deformity, joint swelling Integumentary: ABSENT: pruritus, rash Neurological: ABSENT: abnormal gait, abnormal movements, abnormal speech, confusion, focal weakness, frequent falls, lack of coordination Psychiatric: ABSENT: hallucinations, homidical ideation, suicidal ideation Endocrine: ABSENT: polydipsia, polyuria Hematologic/Lymphatic: PRESENT: easy bruising Allergic/Immunologic: ABSENT: seasonal rhinorrhea Physical Exam Vital Signs: Temp Pulse Resp BP Pulse Ox 97.8 F 59 L 12 110/60 97 12/25/17 08:39 12/25/17 08:39 12/25/17 08:39 12/25/17 08:39 12/25/17 08:39 Intake & Output 12/24/17 12/25/17 12/26/17 06:59 06:59 06:59 Intake Total 635 978 Output Total 3375 3000 Balance -2739 Weight 117.5 kg 117.5 kg General appearance: PRESENT: no acute distress, cooperative, disheveled, morbidly obese Head exam: PRESENT: atraumatic, normocephalic Eye exam: PRESENT: conjunctiva pale, EOMI. ABSENT: nystagmus, periorbital swelling, scleral icterus Mouth exam: PRESENT: dry mucosa, neck supple, tongue midline Neck exam: ABSENT: carotid bruit, JVD, lymphadenopathy, thyromegaly, tracheal deviation, tracheostomy Respiratory exam: PRESENT: decreased breath sounds, prolonged expiratory phas, rhonchi, unlabored, wheezes. ABSENT: retraction, stridor, tachypnea Cardiovascular exam: PRESENT: RRR, +S1, +S2 Pulses: PRESENT: normal radial pulses GI/Abdominal exam: PRESENT: hypoactive bowel sounds, soft Extremities exam: ABSENT: clubbing, joint swelling, pedal edema Musculoskeletal exam: ABSENT: deformity, dislocation Neurological exam: PRESENT: alert, awake Psychiatric exam: PRESENT: flat affect Skin exam: PRESENT: dry, warm Results Laboratory Results: 12/23/17 06:50 12/25/17 05:12 12/24/17 12/25/17 04:39 05:12 Sodium 138.8 Potassium 4.5 Chloride 85 L Carbon Dioxide 47 H* Anion Gap 7 BUN 46 H Creatinine 1.64 H Est GFR ( Amer) 50 L Est GFR (Non-Af Amer) 41 L Glucose 83 Calcium 8.4 Phosphorus 4.3 Magnesium 2.1 2.1 06/22/18 06/22/18 06/23/18 22:22 22:22 04:26 Creatine Kinase 32 L CK-MB (CK-2) 0.58 0.72 Troponin I 0.034 0.040 NT-Pro-B Natriuret Pep 12/17/17 12/17/17 12/17/17 04:26 10:17 10:17 Creatine Kinase 31 L 23 L CK-MB (CK-2) 0.85 Troponin I 0.037 NT-Pro-B Natriuret Pep 12/24/17 12/25/17 04:39 05:12 Creatine Kinase CK-MB (CK-2) Troponin I NT-Pro-B Natriuret Pep 3500 H 3040 H Impressions: Thoracentesis Ultrasound 12/18/17 00:00 IMPRESSION: SUCCESSFUL THORACENTESIS USING ULTRASOUND GUIDANCE. Chest X-Ray 12/24/17 00:00 IMPRESSION: Interval cardiac surgery. Moderate to large left pleural effusion. Assessment & Plan - Diagnosis (1) Obesity hypoventilation syndrome Is this a current diagnosis for this admission?: Yes Plan: Will need noninvasive positive pressure ventilation (2) COPD exacerbation Is this a current diagnosis for this admission?: Yes Plan: Generic Name Dose Route Start Last Admin Trade Name Freq PRN Reason Stop Dose Admin Patient Own Medication 1 puff 12/19/17 08:00 Umeclidinium Brm/Vilanterol Tr [Anoro Ellipta 62.5-25 Mcg Inh] IH 01/18/18 07:59 .QAM NINO (3) Obstructive sleep apnea Is this a current diagnosis for this admission?: Yes Plan: Schedule nocturnal polysomnogram prior to discharge:Agree with continued use of BiPAP (4) Hypertension Qualifiers: Hypertension type: essential hypertension Qualified Code(s): I10 - Essential (primary) hypertension Is this a current diagnosis for this admission?: Yes Plan: Stable at this time (5) Morbid obesity with BMI of 40.0-44.9, adult Is this a current diagnosis for this admission?: Yes (6) CAD (coronary artery disease) Is this a current diagnosis for this admission?: Yes Plan: As per PCP and cardiology
[2017-12-25] MEDS: FUROSEMIDE INJ/PF 40 MG/4 ML SDV IV SCH (17:42)
[2017-12-25] MEDS ORDERED: CARVEDILOL 12.5 MG TABLET PO SCH (22:00)
[2017-12-25] MEDS: ATORVASTATIN CALCIUM 40 MG TABLET PO SCH (22:16)
[2017-12-25] MEDS: PHARMACY COMMUNICATION ORDER MC SCH (22:16)
[2017-12-26] MEDS: FUROSEMIDE INJ/PF 40 MG/4 ML SDV IV SCH (05:39)
[2017-12-26] MEDS: OXYCODONE-ACETAMINOPHEN 5-325 MG TABLET PO PRN ×3 (05:39→17:16)
[2017-12-26] MEDS: OXYCODONE HCL IR 5 MG TABLET PO PRN ×3 (05:40→17:16)
[2017-12-26 06:46] LABS: HEMATOCRIT 25.1 % (37.9-51.0); HEMOGLOBIN 8.5 g/dL (13.5-17.0); MEAN CORPUSCULAR HEMOGLOBIN 29.3 pg (27.0-33.4); MEAN CORPUSCULAR HGB CONC 33.8 g/dL (32.0-36.0); MEAN CORPUSCULAR VOLUME 87 fl (80-97); PLATELET COUNT 138 10^3/uL (150-450); RED BLOOD COUNT 2.89 10^6/uL (4.35-5.55); RED CELL DISTRIBUTION WIDTH 16.6 % (11.5-14.0); WHITE BLOOD COUNT 4.5 10^3/uL (4.0-10.5)
[2017-12-26 07:10] LABS: BLOOD UREA NITROGEN 48 mg/dL (7-20); CALCIUM 8.6 mg/dL (8.4-10.2); CHLORIDE 87 mmol/L (98-107); GLUCOSE 82 mg/dL (75-110); PHOSPHORUS 4.2 mg/dL (2.5-4.5); POTASSIUM 4.5 mmol/L (3.6-5.0); SODIUM 139.2 mmol/L (137-145)
[2017-12-26 07:23] LABS: ANION GAP 8 (5-19)
[2017-12-26 07:25] LABS: CARBON DIOXIDE 44 mmol/L (22-30)
[2017-12-26] MEDS ORDERED: BUMETANIDE INJ/PF 1 MG/4 ML SDV IV SCH (10:00)
[2017-12-26] MEDS: MULTIVITAMIN TABLET PO SCH (10:01)
[2017-12-26] MEDS: CARVEDILOL 6.25 MG TABLET PO SCH ×2 (10:01→21:37)
[2017-12-26] MEDS: DOCUSATE SODIUM 100 MG CAPSULE PO SCH (10:02)
[2017-12-26] MEDS: ASPIRIN 81 MG TABLET, ENT COATED PO SCH (10:02)
[2017-12-26] MEDS: AMIODARONE HCL 200 MG TABLET PO SCH (10:02)
[2017-12-26] MEDS: APIXABAN 5 MG TABLET PO SCH ×2 (10:02→17:16)
[2017-12-26] MEDS: SERTRALINE HCL 50 MG TABLET PO SCH (10:02)
[2017-12-26] MEDS: LIDOCAINE 5% (700 MG) TRANSDERMAL ADH..PATCH TP SCH (10:03)
--- NOTE | 2017-12-26 13:29 | PDOC PROGRESS REPORT ---
Subjective Progress Note for:: 12/26/17 Subjective:: A little better Reason For Visit: ANEMIA HIGH OUTPUT HEART FAILURE AND Physical Exam Vital Signs: Temp Pulse Resp BP Pulse Ox 97.4 F 60 20 93/47 L 91 L 12/26/17 12:00 12/26/17 12:00 12/26/17 12:00 12/26/17 12:00 12/26/17 12:00 Intake & Output 12/25/17 12/26/17 12/27/17 06:59 06:59 06:59 Intake Total 978 1507 474 Output Total 3000 2575 500 Balance -2022 -1068 -26 Weight 117.5 kg 113.4 kg General appearance: PRESENT: no acute distress, cooperative, disheveled, obese Head exam: PRESENT: atraumatic, normocephalic Eye exam: PRESENT: conjunctiva pale, EOMI. ABSENT: nystagmus Mouth exam: PRESENT: dry mucosa, neck supple, tongue midline Teeth exam: PRESENT: poor dentation Neck exam: ABSENT: carotid bruit, JVD, lymphadenopathy, thyromegaly, tracheal deviation, tracheostomy Respiratory exam: PRESENT: decreased breath sounds, prolonged expiratory phas, rales, rhonchi, unlabored, wheezes, other - Overall breath sounds improved over the last 24 hours. ABSENT: retraction, stridor Cardiovascular exam: PRESENT: RRR, +S1, +S2 Pulses: PRESENT: normal radial pulses GI/Abdominal exam: PRESENT: normal bowel sounds, soft Extremities exam: ABSENT: calf tenderness, clubbing, joint swelling Musculoskeletal exam: ABSENT: deformity, dislocation Neurological exam: PRESENT: awake Psychiatric exam: PRESENT: flat affect Skin exam: PRESENT: dry, warm Results Laboratory Results: 12/26/17 05:44 12/26/17 05:44 12/26/17 12/26/17 05:44 05:44 WBC 4.5 RBC 2.89 L Hgb 8.5 L Hct 25.1 L MCV 87 MCH 29.3 MCHC 33.8 RDW 16.6 H Plt Count 138 L Sodium 139.2 Potassium 4.5 Chloride 87 L Carbon Dioxide 44 H* Anion Gap 8 BUN 48 H Creatinine 1.71 H Est GFR ( Amer) 48 L Est GFR (Non-Af Amer) 39 L Glucose 82 Calcium 8.6 Phosphorus 4.2 Magnesium 2.3 0612/16/17 12/17/17 22:22 22:22 04:26 Creatine Kinase 32 L CK-MB (CK-2) 0.58 0.72 Troponin I 0.034 0.040 NT-Pro-B Natriuret Pep 12/17/17 12/17/17 12/17/17 04:26 10:17 10:17 Creatine Kinase 31 L 23 L CK-MB (CK-2) 0.85 Troponin I 0.037 NT-Pro-B Natriuret Pep 12/24/17 12/25/17 12/26/17 04:39 05:12 05:44 Creatine Kinase CK-MB (CK-2) Troponin I NT-Pro-B Natriuret Pep 3500 H 3040 H 3260 H Impressions: Thoracentesis Ultrasound 12/18/17 00:00 IMPRESSION: SUCCESSFUL THORACENTESIS USING ULTRASOUND GUIDANCE. Chest X-Ray 12/24/17 00:00 IMPRESSION: Interval cardiac surgery. Moderate to large left pleural effusion. Assessment & Plan - Diagnosis (1) Obesity hypoventilation syndrome Is this a current diagnosis for this admission?: Yes Plan: Will need noninvasive positive pressure ventilation (2) COPD exacerbation Is this a current diagnosis for this admission?: Yes Plan: The above patient has failed BiPAP. This patient would benefit from noninvasive mechanical ventilation via the trilogy AVAPS/AE and faster responding AVAPS rates. The trilogy is able to provide a target tidal volume and also adjusting the EPAP pressures to maintain a patent airway as well as an oral backup rate this machine will help improve PaCO2 levels. The severity of the patient's condition will lead to future hospitalizations and readmissions as well as life-threatening situations without the use of this device trilogy home vent needed for hypercapnic respiratory failure. [facility]. (3) Obstructive sleep apnea Is this a current diagnosis for this admission?: Yes Plan: Schedule nocturnal polysomnogram prior to discharge:Agree with continued use of BiPAP (4) Hypertension Qualifiers: Hypertension type: essential hypertension Qualified Code(s): I10 - Essential (primary) hypertension Is this a current diagnosis for this admission?: Yes Plan: Stable at this time (5) Morbid obesity with BMI of 40.0-44.9, adult Is this a current diagnosis for this admission?: Yes (6) CAD (coronary artery disease) Is this a current diagnosis for this admission?: Yes Plan: As per PCP and cardiology
--- NOTE | 2017-12-26 17:22 | PDOC PROGRESS REPORT ---
Subjective Progress Note for:: 12/26/17 Subjective:: The patient is a 72-year-old gentleman with past medical history of Hypertension Diabetes, diet controlled Coronary artery disease COPD on 3L by NC Obstructive sleep apnea Diastolic CHF Obesity hypoventilation syndrome CABG Atrial fibrillation Chronic pain Depression Chronic anticoagulation with Eliquis History of pulmonary embolism Arthritis AICD Morbid obesity Echocardiogram done on December 19 showed a left ventricular ejection fraction of 65 % Mild tricuspid regurgitation. Right ventricular systolic pressure was 43 mmHg He presented to the emergency room on December 16 with shortness of breath and edema a left-sided pleural effusion and acute renal failure. The patient was started on BiPAP, diuresed with Lasix and underwent ultrasound- guided thoracentesis- 720 cc fluid removed. He is requiring 3L NC O2. sats 68% on RA at rest, very weak and debilitated. He has significant hypercapnia and somnolence off BiPAP. Chest Xray will be repeated today, continue diuresis Reason For Visit: ANEMIA HIGH OUTPUT HEART FAILURE AND Physical Exam Vital Signs: Temp Pulse Resp BP Pulse Ox 97.5 F 58 L 20 106/59 L 92 12/26/17 16:00 12/26/17 16:00 12/26/17 16:00 12/26/17 16:00 12/26/17 16:00 Intake & Output 12/25/17 12/26/17 12/27/17 06:59 06:59 06:59 Intake Total 978 1507 474 Output Total 3000 2575 500 Balance -2 -1068 -26 Weight 117.5 kg 113.4 kg General appearance: PRESENT: no acute distress, obese Ear exam: PRESENT: normal external ear exam Mouth exam: PRESENT: moist Neck exam: ABSENT: tracheal deviation Respiratory exam: PRESENT: crackles, symmetrical, unlabored. ABSENT: wheezes Cardiovascular exam: PRESENT: RRR GI/Abdominal exam: PRESENT: normal bowel sounds, soft. ABSENT: tenderness Rectal exam: PRESENT: deferred Gentrourinary exam: ABSENT: indwelling catheter Extremities exam: PRESENT: pedal edema Neurological exam: PRESENT: alert, awake, oriented to person, oriented to place , oriented to time, oriented to situation Results Laboratory Results: 12/26/17 05:44 12/26/17 05:44 12/26/17 12/26/17 05:44 05:44 WBC 4.5 RBC 2.89 L Hgb 8.5 L Hct 25.1 L MCV 87 MCH 29.3 MCHC 33.8 RDW 16.6 H Plt Count 138 L Sodium 139.2 Potassium 4.5 Chloride 87 L Carbon Dioxide 44 H* Anion Gap 8 BUN 48 H Creatinine 1.71 H Est GFR ( Amer) 48 L Est GFR (Non-Af Amer) 39 L Glucose 82 Calcium 8.6 Phosphorus 4.2 Magnesium 2.3 12/16/17 12/16/17 12/17/17 22:22 22:22 04:26 Creatine Kinase 32 L CK-MB (CK-2) 0.58 0.72 Troponin I 0.034 0.040 NT-Pro-B Natriuret Pep 12/17/17 12/17/17 12/17/17 04:26 10:17 10:17 Creatine Kinase 31 L 23 L CK-MB (CK-2) 0.85 Troponin I 0.037 NT-Pro-B Natriuret Pep 12/24/17 12/25/17 12/26/17 04:39 05:12 05:44 Creatine Kinase CK-MB (CK-2) Troponin I NT-Pro-B Natriuret Pep 3500 H 3040 H 3260 H Impressions: Thoracentesis Ultrasound 12/18/17 00:00 IMPRESSION: SUCCESSFUL THORACENTESIS USING ULTRASOUND GUIDANCE. Assessment & Plan - Diagnosis (1) LEYLA (acute kidney injury) Is this a current diagnosis for this admission?: Yes Plan: Monitor kidney function. Avoid nephrotoxic agents. KELSEY inhibitor on hold. (2) Acute on chronic respiratory failure Is this a current diagnosis for this admission?: Yes Plan: Multifactorial due to pleural effusion diastolic CHF exacerbation and COPD exacerbation. (3) COPD exacerbation Is this a current diagnosis for this admission?: Yes Plan: Improving. Continue outpatient inhalers (4) Hyperkalemia Is this a current diagnosis for this admission?: Yes Plan: Resolved. (5) Pleural effusion, left Is this a current diagnosis for this admission?: Yes Plan: Status post thoracentesis. Fluid was transudative. Cultures negative. Recurred. Continue diuresis. (6) Diabetes mellitus Qualifiers: Diabetes mellitus type: type 2 Diabetes mellitus [facility] insulin use: without long term care social worker use Diabetes mellitus complication status: with unspecified complications Qualified Code(s): E11.8 - Type 2 diabetes mellitus with unspecified complications Is this a current diagnosis for this admission?: Yes Plan: Diet control. (7) Hypertension Qualifiers: Hypertension type: essential hypertension Qualified Code(s): I10 - Essential (primary) hypertension Is this a current diagnosis for this admission?: Yes Plan: Stable. Coreg reduced to avoid hypotension. (8) Morbid obesity with BMI of 40.0-44.9, adult Is this a current diagnosis for this admission?: Yes Plan: Calorie control (9) AICD present, double chamber Is this a current diagnosis for this admission?: Yes (10) CAD (coronary artery disease) Is this a current diagnosis for this admission?: Yes Plan: On Aspirin Statin Coreg (11) History of pulmonary embolism Is this a current diagnosis for this admission?: Yes Plan: On Eliquis (12) History of atrial fibrillation Is this a current diagnosis for this admission?: Yes Plan: On amiodarone and Eliquis (13) Hypercapnia Is this a current diagnosis for this admission?: Yes Plan: Likely due to SUNNY, will need BiPAP at home. (14) Debility Is this a current diagnosis for this admission?: Yes Plan: PT ambulate, OOB - Time Time Spent with patient: 35 or more minutes
--- NOTE | 2017-12-26 18:38 | RADIOLOGY REPORT (SQ) ---
EXAM DESCRIPTION: CHEST 2 VIEWS COMPLETED DATE/TIME: 12/26/2017 3:51 pm REASON FOR STUDY: dyspnea COMPARISON: 12/24/2017 EXAM PARAMETERS: NUMBER OF VIEWS: two views TECHNIQUE: Digital Frontal and Lateral radiographic views of the chest acquired. RADIATION DOSE: NA LIMITATIONS: none FINDINGS: LUNGS AND PLEURA: Large left pleural effusion. Mild pulmonary vascular congestion. MEDIASTINUM AND HILAR STRUCTURES: No masses or contour abnormalities. HEART AND VASCULAR STRUCTURES: Cardiomegaly without ayan pulmonary edema. BONES: No acute findings. HARDWARE: Pacemaker/defibrillator. Heart valve. Sternotomy wires. OTHER: No other significant finding. IMPRESSION: Cardiomegaly with left pleural effusion. No significant interval change. TECHNICAL DOCUMENTATION: JOB ID: [id number] [employer]- All Rights Reserved Reading location - IP/workstation name: [email or web address]
[2017-12-26] MEDS: ATORVASTATIN CALCIUM 40 MG TABLET PO SCH (21:37)
[2017-12-26] MEDS: PHARMACY COMMUNICATION ORDER MC SCH (21:38)
[2017-12-27 05:40] LABS: HEMATOCRIT 24.5 % (37.9-51.0); HEMOGLOBIN 8.1 g/dL (13.5-17.0); MEAN CORPUSCULAR HEMOGLOBIN 28.9 pg (27.0-33.4); MEAN CORPUSCULAR HGB CONC 33.1 g/dL (32.0-36.0); MEAN CORPUSCULAR VOLUME 87 fl (80-97); PLATELET COUNT 141 10^3/uL (150-450); RED CELL DISTRIBUTION WIDTH 16.4 % (11.5-14.0); WHITE BLOOD COUNT 4.5 10^3/uL (4.0-10.5)
[2017-12-27 06:01] LABS: BLOOD UREA NITROGEN 49 mg/dL (7-20); CALCIUM 8.3 mg/dL (8.4-10.2); CHLORIDE 86 mmol/L (98-107); GLUCOSE 91 mg/dL (75-110); PHOSPHORUS 4.4 mg/dL (2.5-4.5); POTASSIUM 4.5 mmol/L (3.6-5.0); SODIUM 138.2 mmol/L (137-145)
[2017-12-27] MEDS: OXYCODONE-ACETAMINOPHEN 5-325 MG TABLET PO PRN ×3 (06:06→21:37)
[2017-12-27] MEDS: OXYCODONE HCL IR 5 MG TABLET PO PRN ×3 (06:06→21:38)
[2017-12-27] MEDS ORDERED: NORMAL SALINE 250 ML IV PRN ×2 (07:53)
[2017-12-27] MEDS: CARVEDILOL 6.25 MG TABLET PO SCH ×2 (09:16→21:39)
[2017-12-27] MEDS: DOCUSATE SODIUM 100 MG CAPSULE PO SCH (09:16)
[2017-12-27] MEDS: SERTRALINE HCL 50 MG TABLET PO SCH (09:16)
[2017-12-27] MEDS: MULTIVITAMIN TABLET PO SCH (09:16)
[2017-12-27] MEDS: AMIODARONE HCL 200 MG TABLET PO SCH (09:17)
[2017-12-27] MEDS: LIDOCAINE 5% (700 MG) TRANSDERMAL ADH..PATCH TP SCH (09:17)
[2017-12-27] MEDS ORDERED: BUMETANIDE INJ/PF 1 MG/4 ML SDV IV SCH ×2 (10:00→16:05)
--- NOTE | 2017-12-27 11:06 | PDOC PROGRESS REPORT ---
Subjective Progress Note for:: 12/27/17 Subjective:: The patient is a 72-year-old gentleman with past medical history of Hypertension Diabetes, diet controlled Coronary artery disease COPD on 3L by NC Obstructive sleep apnea Diastolic CHF Obesity hypoventilation syndrome CABG Atrial fibrillation Chronic pain Depression Chronic anticoagulation with Eliquis History of pulmonary embolism Arthritis AICD Morbid obesity Echocardiogram done on December 19 showed a left ventricular ejection fraction of 65 % Mild tricuspid regurgitation. Right ventricular systolic pressure was 43 mmHg He presented to the emergency room on December 16 with shortness of breath and edema a left-sided pleural effusion and acute renal failure. The patient was started on BiPAP, diuresed with Lasix and underwent ultrasound- guided thoracentesis- 720 cc fluid removed. He is requiring 3L NC O2. sats 68% on RA at rest, very weak and debilitated. He has significant hypercapnia and somnolence off BiPAP. Chest Xray shows recurrent L pleural effusion, repeat thoracentesis planned for 12/29/17. Cytology was negative on the prior pleural fluid, however protein and LDH levels are still pending. We are attempting to set him up for home BiPAP. Pulmonology evaluation has been requested to help assist with that. The patient also has anemia which is worsening. He has had no overt bleeding. He does not recall the last time he had an endoscopy or colonoscopy. Reason For Visit: ANEMIA HIGH OUTPUT HEART FAILURE AND Physical Exam Vital Signs: Temp Pulse Resp BP Pulse Ox 97.9 F 60 18 123/64 91 L 12/27/17 07:50 12/27/17 07:50 12/27/17 07:50 12/27/17 07:50 12/27/17 10:00 Intake & Output 12/26/17 12/27/17 12/28/17 06:59 06:59 06:59 Intake Total 1507 1117 Output Total 2575 1500 Balance -1068 -383 Weight 113.4 kg 116 kg General appearance: PRESENT: obese Head exam: PRESENT: normocephalic Mouth exam: PRESENT: moist Teeth exam: PRESENT: poor dentation Neck exam: ABSENT: tracheal deviation Respiratory exam: PRESENT: crackles, decreased breath sounds, symmetrical, unlabored. ABSENT: wheezes Cardiovascular exam: PRESENT: RRR GI/Abdominal exam: PRESENT: normal bowel sounds, soft. ABSENT: tenderness Rectal exam: PRESENT: deferred Gentrourinary exam: ABSENT: indwelling catheter Neurological exam: PRESENT: alert, awake, oriented to person Psychiatric exam: PRESENT: appropriate affect Skin exam: ABSENT: petechiae Results Laboratory Results: 12/27/17 04:52 12/27/17 04:52 12/27/17 12/27/17 04:52 04:52 WBC 4.5 RBC 2.80 L Hgb 8.1 L Hct 24.5 L MCV 87 MCH 28.9 MCHC 33.1 RDW 16.4 H Plt Count 141 L Sodium 138.2 Potassium 4.5 Chloride 86 L Carbon Dioxide > 40 H* Anion Gap 12 BUN 49 H Creatinine 1.74 H Est GFR ( Amer) 47 L Est GFR (Non-Af Amer) 39 L Glucose 91 Calcium 8.3 L Phosphorus 4.4 Magnesium 2.1 12/16/17 12/16/17 12/17/17 22:22 22:22 04:26 Creatine Kinase 32 L CK-MB (CK-2) 0.58 0.72 Troponin I 0.034 0.040 NT-Pro-B Natriuret Pep 12/17/17 12/17/17 12/17/17 04:26 10:17 10:17 Creatine Kinase 31 L 23 L CK-MB (CK-2) 0.85 Troponin I 0.037 NT-Pro-B Natriuret Pep 12/24/17 12/25/17 12/26/17 04:39 05:12 05:44 Creatine Kinase CK-MB (CK-2) Troponin I NT-Pro-B Natriuret Pep 3500 H 3040 H 3260 H Impressions: Thoracentesis Ultrasound 12/18/17 00:00 IMPRESSION: SUCCESSFUL THORACENTESIS USING ULTRASOUND GUIDANCE. Chest X-Ray 12/26/17 00:00 IMPRESSION: Cardiomegaly with left pleural effusion. No significant interval change. Assessment & Plan - Diagnosis (1) LEYLA (acute kidney injury) Is this a current diagnosis for this admission?: Yes Plan: Monitor kidney function. Avoid nephrotoxic agents. KELSEY inhibitor on hold. (2) Acute on chronic respiratory failure Is this a current diagnosis for this admission?: Yes Plan: Multifactorial due to pleural effusion diastolic CHF exacerbation and COPD exacerbation. (3) COPD exacerbation Is this a current diagnosis for this admission?: Yes Plan: Improving. No significant wheezing at present. Continue outpatient inhalers (4) Hyperkalemia Is this a current diagnosis for this admission?: Yes Plan: Resolved. (5) Pleural effusion, left Is this a current diagnosis for this admission?: Yes Plan: Plan for repeat thoracentesis on December 29. (6) Diabetes mellitus Qualifiers: Diabetes mellitus type: type 2 Diabetes mellitus retirement insulin use: without retirement use Diabetes mellitus complication status: with unspecified complications Qualified Code(s): E11.8 - Type 2 diabetes mellitus with unspecified complications Is this a current diagnosis for this admission?: Yes Plan: Diet control. (7) Hypertension Qualifiers: Hypertension type: essential hypertension Qualified Code(s): I10 - Essential (primary) hypertension Is this a current diagnosis for this admission?: Yes Plan: Stable. Coreg dose reduced to avoid hypotension. (8) Morbid obesity with BMI of 40.0-44.9, adult Is this a current diagnosis for this admission?: Yes Plan: Calorie control (9) AICD present, double chamber Is this a current diagnosis for this admission?: Yes (10) CAD (coronary artery disease) Is this a current diagnosis for this admission?: Yes Plan: On Aspirin Statin Coreg. (11) History of pulmonary embolism Is this a current diagnosis for this admission?: Yes Plan: On Eliquis-hold for thoracentesis. (12) History of atrial fibrillation Is this a current diagnosis for this admission?: Yes Plan: On Amiodarone and Eliquis. Eliquis and aspirin will need to be held for 48 hours in anticipation of thoracentesis on December 29 Paced rhythm on telemetry with few PVCs (13) Hypercapnia Is this a current diagnosis for this admission?: Yes Plan: Likely due to SUNNY, will need BiPAP at home. (14) Debility Is this a current diagnosis for this admission?: Yes Plan: PT ambulate, OOB (15) Anemia Qualifiers: Anemia type: iron deficiency Is this a current diagnosis for this admission?: Yes Plan: Most likely anemia of chronic disease. We will check stool occult blood. He will need a workup done. Gastroenterology not available this week in the hospital. We will transfuse him with 1 unit of packed red blood cells. He will need outpatient follow-up for this. - Time Time Spent with patient: 35 or more minutes
--- NOTE | 2017-12-27 11:39 | RADIOLOGY REPORT (SQ) ---
EXAM DESCRIPTION: VENOUS BILATERAL LOWER COMPLETED DATE/TIME: 12/27/2017 11:18 am REASON FOR STUDY: Lower estremity swelling COMPARISON: 03/20/2015 TECHNIQUE: Dynamic and static flores scale and color images acquired of both lower extremity venous sy stems. Selected spectral images acquired with additional compression and augmentation maneuvers. Imag es stored on PACS. LIMITATIONS: None. FINDINGS: RIGHT LEG COMMON FEMORAL AND FEMORAL: Normal phasicity, compression and augmentation. No visualized echogenic m aterial on flores scale. No defects on color images. POPLITEAL: Normal compression and augmentation. No visualized echogenic material on flores scale. No de fects on color images. CALF VESSELS: Normal compression and augmentation. No visualized echogenic material on flores scale. No defects on color image. GSV AND SSV: Normal compression. No visualized echogenic material on flores scale. No defects on color images. ANY DEEP VENOUS INSUFFICIENCY: Not evaluated. ANY EVIDENCE OF POPLITEAL CYST: No. OTHER: No other significant finding. LEFT LEG COMMON FEMORAL AND FEMORAL: Normal phasicity, compression and augmentation. No visualized echogenic m aterial on flores scale. No defects on color images. POPLITEAL: Normal compression and augmentation. No visualized echogenic material on flores scale. No de fects on color images. CALF VESSELS: Normal compression and augmentation. No visualized echogenic material on flores scale. No defects on color images. GSV AND SSV: Portion of the left greater saphenous vein harvested for CABG. Otherwise, normal compre ssion and augmentation. No visualized echogenic material on flores scale. No defects on color images. ANY DEEP VENOUS INSUFFICIENCY: Not evaluated. ANY EVIDENCE POPLITEAL CYST: No. OTHER: No other significant finding. IMPRESSION: NO EVIDENCE DVT OR SVT IN EITHER LEG. TECHNICAL DOCUMENTATION: JOB ID: [id number] [employer]- All Rights Reserved Reading location - IP/workstation name: [email or web address]
[2017-12-27] MEDS ORDERED: DOBUTAMINE HCL/D5W 500 MG/250 ML RTUINJ IV PRN (13:58)
[2017-12-27 19:15] LABS: ABSOLUTE EOSINOPHILS # (AUTO) 0.3 10^3/uL (0.0-0.6); ABSOLUTE LYMPHOCYTES (AUTO) 1.6 10^3/uL (0.5-4.7); ABSOLUTE MONOCYTES (AUTO) 0.5 10^3/uL (0.1-1.4); ABSOLUTE NEUT (AUTO) 2.2 10^3/uL (1.7-8.2); BASOPHILS % (AUTO) 0.7 % (0-2); EOSINOPHILS % (AUTO) 5.7 % (0-6); HEMOGLOBIN 9.4 g/dL (13.5-17.0); LYMPHOCYTES % (AUTO) 34.8 % (13-45); MEAN CORPUSCULAR HEMOGLOBIN 29.2 pg (27.0-33.4); MEAN CORPUSCULAR HGB CONC 33.4 g/dL (32.0-36.0); MEAN CORPUSCULAR VOLUME 87 fl (80-97); MONOCYTES % (AUTO) 10.5 % (3-13); PLATELET COUNT 156 10^3/uL (150-450); RED BLOOD COUNT 3.21 10^6/uL (4.35-5.55); RED CELL DISTRIBUTION WIDTH 16.1 % (11.5-14.0); SEGMENTED NEUTROPHILS % (AUTO) 48.3 % (42-78); TOTAL CELLS COUNTED % (AUTO) 100 %; WHITE BLOOD COUNT 4.7 10^3/uL (4.0-10.5)
[2017-12-27] MEDS: ATORVASTATIN CALCIUM 40 MG TABLET PO SCH (21:38)
[2017-12-27] MEDS: PHARMACY COMMUNICATION ORDER MC SCH (21:54)
[2017-12-28] MEDS: OXYCODONE-ACETAMINOPHEN 5-325 MG TABLET PO PRN ×3 (03:47→18:36)
[2017-12-28] MEDS: OXYCODONE HCL IR 5 MG TABLET PO PRN ×3 (03:47→18:35)
[2017-12-28 05:08] LABS: HEMATOCRIT 27.4 % (37.9-51.0); MEAN CORPUSCULAR HEMOGLOBIN 28.8 pg (27.0-33.4); MEAN CORPUSCULAR HGB CONC 32.7 g/dL (32.0-36.0); MEAN CORPUSCULAR VOLUME 88 fl (80-97); PLATELET COUNT 169 10^3/uL (150-450); RED BLOOD COUNT 3.11 10^6/uL (4.35-5.55); RED CELL DISTRIBUTION WIDTH 16.5 % (11.5-14.0); WHITE BLOOD COUNT 4.4 10^3/uL (4.0-10.5)
[2017-12-28 05:39] LABS: BLOOD UREA NITROGEN 45 mg/dL (7-20); C-REACTIVE PROTEIN 5.3 mg/L (<10.0); CALCIUM 8.4 mg/dL (8.4-10.2); CHLORIDE 89 mmol/L (98-107); GLUCOSE 92 mg/dL (75-110); POTASSIUM 4.3 mmol/L (3.6-5.0); SODIUM 139.5 mmol/L (137-145)
[2017-12-28 05:44] LABS: ANION GAP 6 (5-19)
[2017-12-28 05:45] LABS: CARBON DIOXIDE 45 mmol/L (22-30)
[2017-12-28 05:50] LABS: ERYTHROCYTE SEDIMENTATION RATE 88 mm/hr (0-20)
[2017-12-28] MEDS: CARVEDILOL 6.25 MG TABLET PO SCH ×2 (10:30→21:56)
[2017-12-28] MEDS: MULTIVITAMIN TABLET PO SCH (10:30)
[2017-12-28] MEDS: DOCUSATE SODIUM 100 MG CAPSULE PO SCH (10:31)
[2017-12-28] MEDS: AMIODARONE HCL 200 MG TABLET PO SCH (10:31)
[2017-12-28] MEDS: SERTRALINE HCL 50 MG TABLET PO SCH (10:32)
[2017-12-28] MEDS: LIDOCAINE 5% (700 MG) TRANSDERMAL ADH..PATCH TP SCH (10:32)
--- NOTE | 2017-12-28 11:31 | PDOC PROGRESS REPORT ---
Subjective Progress Note for:: 12/28/17 Subjective:: No overnight events. Tolerating BiPAP. Continues to home baseline O2 of 3L with good sats. Chest Xray showed recurrent L pleural effusion, repeat thoracentesis planned for 12/29/17. Discussed with son who was at bedside. No other complaints. Reason For Visit: ANEMIA HIGH OUTPUT HEART FAILURE AND Physical Exam Vital Signs: Temp Pulse Resp BP Pulse Ox 97.3 F 60 18 124/66 98 12/28/17 08:08 12/28/17 08:08 12/28/17 08:08 12/28/17 08:08 12/28/17 08:08 Intake & Output 12/27/17 12/28/17 12/29/17 06:59 06:59 06:59 Intake Total 1117 1990 Output Total 1500 3150 Balance -383 -1159 Weight 116 kg 115.6 kg General appearance: PRESENT: no acute distress, obese, other - Resting comfortably in bed Head exam: PRESENT: normocephalic Mouth exam: PRESENT: other - NC in place Respiratory exam: PRESENT: crackles, decreased breath sounds - Bilaterally, unlabored Cardiovascular exam: PRESENT: +S1, +S2 GI/Abdominal exam: PRESENT: normal bowel sounds, soft. ABSENT: tenderness Neurological exam: PRESENT: alert, awake, CN II-XII grossly intact Psychiatric exam: PRESENT: appropriate affect Results Laboratory Results: 12/28/17 04:40 12/28/17 04:40 12/18/17 12/27/17 12/27/17 10:55 08:27 19:00 WBC 4.7 RBC 3.21 L Hgb 9.4 L Hct 28.0 L MCV 87 MCH 29.2 MCHC 33.4 RDW 16.1 H Plt Count 156 Seg Neutrophils % 48.3 Lymphocytes % 34.8 Monocytes % 10.5 Eosinophils % 5.7 Basophils % 0.7 Absolute Neutrophils 2.2 Absolute Lymphocytes 1.6 Absolute Monocytes 0.5 Absolute Eosinophils 0.3 Absolute Basophils 0.0 Sodium Potassium Chloride Carbon Dioxide Anion Gap BUN Creatinine Est GFR ( Amer) Est GFR (Non-Af Amer) Glucose Calcium C-Reactive Protein Fluid Total Protein Fluid LDH Blood Type B POSITIVE Antibody Screen NEGATIVE 12/28/17 12/28/17 04:40 04:40 WBC 4.4 RBC 3.11 L Hgb 9.0 L Hct 27.4 L MCV 88 MCH 28.8 MCHC 32.7 RDW 16.5 H Plt Count 169 Seg Neutrophils % Lymphocytes % Monocytes % Eosinophils % Basophils % Absolute Neutrophils Absolute Lymphocytes Absolute Monocytes Absolute Eosinophils Absolute Basophils Sodium 139.5 Potassium 4.3 Chloride 89 L Carbon Dioxide 45 H* Anion Gap 6 BUN 45 H Creatinine 1.65 H Est GFR ( Amer) 50 L Est GFR (Non-Af Amer) 41 L Glucose 92 Calcium 8.4 C-Reactive Protein 5.3 Fluid Total Protein Fluid LDH Blood Type Antibody Screen 12/16/17 12/16/17 12/17/17 22:22 22:22 04:26 Creatine Kinase 32 L CK-MB (CK-2) 0.58 0.72 Troponin I 0.034 0.040 NT-Pro-B Natriuret Pep 12/17/17 12/17/17 12/17/17 04:26 10:17 10:17 Creatine Kinase 31 L 23 L CK-MB (CK-2) 0.85 Troponin I 0.037 NT-Pro-B Natriuret Pep 12/24/17 12/25/17 12/26/17 04:39 05:12 05:44 Creatine Kinase CK-MB (CK-2) Troponin I NT-Pro-B Natriuret Pep 3500 H 3040 H 3260 H Impressions: Thoracentesis Ultrasound 12/18/17 00:00 IMPRESSION: SUCCESSFUL THORACENTESIS USING ULTRASOUND GUIDANCE. Chest X-Ray 12/26/17 00:00 IMPRESSION: Cardiomegaly with left pleural effusion. No significant interval change. Venous Doppler Study 12/27/17 00:00 IMPRESSION: NO EVIDENCE DVT OR SVT IN EITHER LEG. Assessment & Plan - Diagnosis (1) Pleural effusion Is this a current diagnosis for this admission?: Yes Plan: Thora on 12/18. LDH 63 howver Body fluid protein 4g which is consistent with exudative. Repeat CXR shows left sided pleural effusion. Plan for repeat thoracentesis on December 29. Repeat pleural studies including cytology. (2) LEYLA (acute kidney injury) Is this a current diagnosis for this admission?: Yes Plan: Cr 1.65 on 12/28, which is stable since admission. This may represent (new?) baseline. (3) Hypercapnia Is this a current diagnosis for this admission?: Yes Plan: CO2 45. Consistent with previous. Should be using BiPAP (4) Acute on chronic systolic congestive heart failure, NYHA class 3 Is this a current diagnosis for this admission?: Yes Plan: HFpEF, TTE from 12/19 shows EF 65%. Mild pulm HTN. (5) History of atrial fibrillation Is this a current diagnosis for this admission?: Yes Plan: Rate controlled, continue Coreg. Holding Apixiban due to planned thoracentesis - Time Time Spent with patient: Less than 15 minutes
[2017-12-28 16:23] LABS: ANION GAP 6 (5-19); CARBON DIOXIDE 46 mmol/L (22-30)
[2017-12-28] MEDS: ATORVASTATIN CALCIUM 40 MG TABLET PO SCH (21:55)
[2017-12-28] MEDS: PHARMACY COMMUNICATION ORDER MC SCH (22:00)
[2017-12-29] MEDS: OXYCODONE-ACETAMINOPHEN 5-325 MG TABLET PO PRN ×4 (00:37→20:17)
[2017-12-29] MEDS: OXYCODONE HCL IR 5 MG TABLET PO PRN ×4 (00:38→20:18)
[2017-12-29 05:14] LABS: INTERNATIONAL RATION (INR) 1.11; PROTHROMBIN TIME 14.8 SEC (11.4-15.4)
[2017-12-29 05:15] LABS: PARTIAL THROMBOPLASTIN TIME 32.3 SEC (23.5-35.8)
[2017-12-29 05:20] LABS: TOTAL PROTEIN 6.7 g/dL (6.3-8.2)
[2017-12-29] MEDS: SERTRALINE HCL 50 MG TABLET PO SCH (10:54)
[2017-12-29] MEDS: DOCUSATE SODIUM 100 MG CAPSULE PO SCH (10:54)
[2017-12-29] MEDS: MULTIVITAMIN TABLET PO SCH (10:54)
[2017-12-29] MEDS: AMIODARONE HCL 200 MG TABLET PO SCH (10:55)
[2017-12-29] MEDS: LIDOCAINE 5% (700 MG) TRANSDERMAL ADH..PATCH TP SCH (10:55)
[2017-12-29] MEDS: CARVEDILOL 6.25 MG TABLET PO SCH ×2 (10:55→21:54)
--- NOTE | 2017-12-29 15:13 | RADIOLOGY REPORT (SQ) ---
EXAM DESCRIPTION: U/S THORACENTESIS WITH IMAGING COMPLETED DATE/TIME: 12/29/2017 2:58 pm REASON FOR STUDY: pleural effusion COMPARISON: Chest films 12/26/2017, 12/24/2017, 12/16/2017 CT chest 08/05/2017 LIMITATIONS: None. PROCEDURE: Procedure, risks, benefit, and alternative explained to patient who then gave written con sent. The posterior left chest wall was marked using ultrasound guidance. A time-out was called for correct marking verification. Chest prepped and draped using sterile technique. Local anesthesia ac hieved using 6 ml of 1% lidocaine injection. A 6fr Safe-T- Centesis set was introduced into the post erior left pleural space. Fluid was aspirated. The catheter was removed and the entry site was cove red with sterile bandage. No immediate complications noted. Fluid was sent for testing. Images acquired during the procedure were stored on PACS. FINDINGS: ENTRY SITE: Left posterior pleural space FLUID VOLUME: 1 L of clear straw-colored fluid FLUID ANALYSIS: Yes, sent for testing as per hospitalist physician OTHER: Post procedure chest x-ray dictated separately demonstrates no left-sided pneumothorax. IMPRESSION: SUCCESSFUL LEFT THERAPEUTIC AND DIAGNOSTIC THORACENTESIS USING ULTRASOUND GUIDANCE. COMMENT: Patient medication list reviewed: Yes- Quality ID# [id number]:Eligible professional attests to doc umenting in the medical record they obtained, updated, or reviewed the patient's current medications. TECHNICAL DOCUMENTATION: JOB ID: [id number] [employer]- All Rights Reserved Reading location - IP/workstation name: [email or web address]
--- NOTE | 2017-12-29 15:20 | RADIOLOGY REPORT (SQ) ---
EXAM DESCRIPTION: CHEST SINGLE VIEW COMPLETED DATE/TIME: 12/29/2017 3:08 pm REASON FOR STUDY: S/P LEFT THORACENTESIS COMPARISON: 12/26/2017 EXAM PARAMETERS: NUMBER OF VIEWS: One view. TECHNIQUE: Single frontal radiographic view of the chest acquired. RADIATION DOSE: NA LIMITATIONS: None. FINDINGS: LUNGS AND PLEURA: No pneumothorax. Residual left pleural effusion. There is considerable opacification in the right base. There is retrocardiac opacification on the left. MEDIASTINUM AND HILAR STRUCTURES: No masses. Contour normal. HEART AND VASCULAR STRUCTURES: Cardiomegaly. BONES: No acute findings. HARDWARE: Sternotomy wires. Pacemaker/defibrillator. Heart valve. OTHER: No other significant finding. IMPRESSION: Residual left pleural effusion. No pneumothorax. Likely left lower lobe atelectasis. Cannot exclude a minimal infiltrate in the right base. TECHNICAL DOCUMENTATION: JOB ID: [id number] [employer]- All Rights Reserved Reading location - IP/workstation name: [email or web address]
--- NOTE | 2017-12-29 15:36 | PDOC PROGRESS REPORT ---
Subjective Progress Note for:: 12/29/17 Subjective:: The patient is a 72-year-old gentleman with past medical history of Hypertension Diabetes, diet controlled Coronary artery disease COPD on 3L by NC Obstructive sleep apnea Diastolic CHF Obesity hypoventilation syndrome CABG Atrial fibrillation Chronic pain Depression Chronic anticoagulation with Eliquis History of pulmonary embolism Arthritis AICD Morbid obesity Echocardiogram done on December 19 showed a left ventricular ejection fraction of 65 % Mild tricuspid regurgitation. Right ventricular systolic pressure was 43 mmHg He presented to the emergency room on December 16 with shortness of breath and edema a left-sided pleural effusion and acute renal failure. The patient was started on BiPAP, diuresed with Lasix and underwent ultrasound- guided thoracentesis- 720 cc fluid removed. Cytology was negative. He is requiring 3L NC O2. sats 68% on RA at rest, very weak and debilitated. He has significant hypercapnia and somnolence off BiPAP. Chest Xray showed a recurrent L pleural effusion, repeat thoracentesis done today, 1 L straw colored fluid removed- results pending. We are attempting to set him up for home BiPAP. Pulmonology evaluation has been requested to help assist with that. The patient also has anemia and was given 1 unit PRBC He does not recall the last time he had an endoscopy or colonoscopy. Will need BiPAP at home, which Dr. Gonzales has helped arrange for. Reason For Visit: ANEMIA HIGH OUTPUT HEART FAILURE AND Physical Exam Vital Signs: Temp Pulse Resp BP Pulse Ox 98.0 F 60 18 121/61 93 12/29/17 10:54 12/29/17 14:00 12/29/17 10:54 12/29/17 10:54 12/29/17 10:54 Intake & Output 12/28/17 12/29/17 12/30/17 06:59 06:59 06:59 Intake Total 1990 1070 450 Output Total 3149 2500 1000 Balance -1159 -9580 -550 Weight 115.6 kg General appearance: PRESENT: obese Eye exam: ABSENT: scleral icterus Ear exam: PRESENT: normal external ear exam Mouth exam: PRESENT: moist Teeth exam: PRESENT: poor dentation Neck exam: ABSENT: tracheal deviation Respiratory exam: PRESENT: decreased breath sounds, symmetrical, unlabored Cardiovascular exam: PRESENT: RRR GI/Abdominal exam: PRESENT: normal bowel sounds, soft. ABSENT: tenderness Rectal exam: PRESENT: deferred Neurological exam: PRESENT: alert, awake Results Laboratory Results: 12/28/17 04:40 12/28/17 04:40 12/27/17 12/29/17 04:52 04:09 Carbon Dioxide 46 H* Anion Gap 6 Total Protein 6.7 12/16/17 12/16/17 12/17/17 22:22 22:22 04:26 Creatine Kinase 32 L CK-MB (CK-2) 0.58 0.72 Troponin I 0.034 0.040 NT-Pro-B Natriuret Pep 12/17/17 12/17/17 12/17/17 04:26 10:17 10:17 Creatine Kinase 31 L 23 L CK-MB (CK-2) 0.85 Troponin I 0.037 NT-Pro-B Natriuret Pep 12/24/17 12/25/17 12/26/17 04:39 05:12 05:44 Creatine Kinase CK-MB (CK-2) Troponin I NT-Pro-B Natriuret Pep 3500 H 3040 H 3260 H Impressions: Venous Doppler Study 12/27/17 00:00 IMPRESSION: NO EVIDENCE DVT OR SVT IN EITHER LEG. Chest X-Ray 12/29/17 00:00 IMPRESSION: Residual left pleural effusion. No pneumothorax. Likely left lower lobe atelectasis. Cannot exclude a minimal infiltrate in the right base. Thoracentesis Ultrasound 12/29/17 00:00 IMPRESSION: SUCCESSFUL LEFT THERAPEUTIC AND DIAGNOSTIC THORACENTESIS USING ULTRASOUND GUIDANCE. Assessment & Plan - Diagnosis (1) LEYLA (acute kidney injury) Is this a current diagnosis for this admission?: Yes Plan: Monitor kidney function. Avoid nephrotoxic agents. KELSEY inhibitor on hold. (2) Acute on chronic respiratory failure Is this a current diagnosis for this admission?: Yes Plan: Multifactorial due to pleural effusion and COPD exacerbation. (3) COPD exacerbation Is this a current diagnosis for this admission?: Yes Plan: Improving. No significant wheezing at present. Continue outpatient inhalers (4) Hyperkalemia Is this a current diagnosis for this admission?: Yes Plan: Resolved. (5) Pleural effusion, left Is this a current diagnosis for this admission?: Yes Plan: 1 L removed today- follow up on results (6) Diabetes mellitus Qualifiers: Diabetes mellitus type: type 2 Diabetes mellitus residential insulin use: without termite control representative use Diabetes mellitus complication status: with unspecified complications Qualified Code(s): E11.8 - Type 2 diabetes mellitus with unspecified complications Is this a current diagnosis for this admission?: Yes Plan: Diet control. (7) Hypertension Qualifiers: Hypertension type: essential hypertension Qualified Code(s): I10 - Essential (primary) hypertension Is this a current diagnosis for this admission?: Yes Plan: Stable. Coreg dose reduced to avoid hypotension. (8) Morbid obesity with BMI of 40.0-44.9, adult Is this a current diagnosis for this admission?: Yes (9) AICD present, double chamber Is this a current diagnosis for this admission?: Yes (10) CAD (coronary artery disease) Is this a current diagnosis for this admission?: Yes Plan: On Aspirin Statin Coreg. (11) History of pulmonary embolism Is this a current diagnosis for this admission?: Yes Plan: On Eliquis-hold for thoracentesis. Restart today (12) History of atrial fibrillation Is this a current diagnosis for this admission?: Yes Plan: On Amiodarone and Eliquis. Eliquis and aspirin were held for 48 hours in anticipation of thoracentesis on , December 29 Paced rhythm on telemetry with few PVCs (13) Hypercapnia Is this a current diagnosis for this admission?: Yes Plan: Likely due to SUNNY, will need BiPAP at home. (14) Debility Is this a current diagnosis for this admission?: Yes Plan: PT ambulate, OOB (15) Anemia Qualifiers: Anemia type: iron deficiency Is this a current diagnosis for this admission?: Yes Plan: Most likely anemia of chronic disease. Check stool occult blood. Gastroenterology not available this week in the hospital. Transfused 1 unit of packed red blood cells. He will need outpatient follow-up for this. - Time Time Spent with patient: 35 or more minutes
[2017-12-29 16:14] LABS: FLUID TYPE PLEURAL
[2017-12-29 16:15] LABS: FLUID SOURCE LUNG
[2017-12-29 16:16] LABS: FLUID APPEARANCE SLIGHTLY HAZY; FLUID COLOR YELLOW
[2017-12-29 16:17] LABS: FLUID VISCOSITY SLIGHTLY VISCOUS
--- NOTE | 2017-12-29 17:34 | RADIOLOGY REPORT (SQ) ---
EXAM DESCRIPTION: CHEST SINGLE VIEW COMPLETED DATE/TIME: 12/29/2017 5:09 pm REASON FOR STUDY: 2 HOURS S/P LEFT THORACENTESIS COMPARISON: 12/29/2017, 1505 hours EXAM PARAMETERS: NUMBER OF VIEWS: One view. TECHNIQUE: Single frontal radiographic view of the chest acquired. RADIATION DOSE: NA LIMITATIONS: None. FINDINGS: LUNGS AND PLEURA: No pneumothorax post thoracentesis. Minimal left residual pleural thick ening and basilar airspace disease likely atelectasis. Minimal right basilar atelectasis. Trace right pleural fluid. No right pneumothorax. MEDIASTINUM AND HILAR STRUCTURES: No masses. Contour normal. HEART AND VASCULAR STRUCTURES: Stable cardiomegaly and old sternotomy with CABG BONES: No acute findings. HARDWARE: Left-sided dual lead pacemaker unchanged OTHER: No other significant finding. IMPRESSION: No left pneumothorax 2 hours post thoracentesis TECHNICAL DOCUMENTATION: JOB ID: [id number] [employer]- All Rights Reserved Reading location - IP/workstation name: [email or web address]
[2017-12-29] MEDS: APIXABAN 5 MG TABLET PO SCH (17:40)
[2017-12-29] MEDS: ATORVASTATIN CALCIUM 40 MG TABLET PO SCH (21:53)
[2017-12-29] MEDS: METHOCARBAMOL 750 MG TABLET PO PRN (21:55)
[2017-12-29] MEDS: PHARMACY COMMUNICATION ORDER MC SCH (21:55)
[2017-12-30] MEDS: OXYCODONE HCL IR 5 MG TABLET PO PRN ×2 (02:09→09:11)
[2017-12-30] MEDS: OXYCODONE-ACETAMINOPHEN 5-325 MG TABLET PO PRN ×3 (02:09→17:18)
[2017-12-30] MEDS: SERTRALINE HCL 50 MG TABLET PO SCH (09:11)
[2017-12-30] MEDS: APIXABAN 5 MG TABLET PO SCH ×2 (09:11→17:19)
[2017-12-30] MEDS: DOCUSATE SODIUM 100 MG CAPSULE PO SCH (09:12)
[2017-12-30] MEDS: LIDOCAINE 5% (700 MG) TRANSDERMAL ADH..PATCH TP SCH (09:12)
[2017-12-30] MEDS: AMIODARONE HCL 200 MG TABLET PO SCH (09:12)
[2017-12-30] MEDS: MULTIVITAMIN TABLET PO SCH (09:12)
[2017-12-30] MEDS: CARVEDILOL 6.25 MG TABLET PO SCH (09:12)
[2017-12-30 12:28] LABS: TOTAL PROTEIN BODY FLUID 3.9 g/dL (.)
[2017-12-30 12:32] LABS: ALBUMIN 3.1 g/dL (3.5-5.0); BLOOD UREA NITROGEN 36 mg/dL (7-20); CHLORIDE 91 mmol/L (98-107); GLUCOSE 91 mg/dL (75-110); POTASSIUM 4.2 mmol/L (3.6-5.0); SODIUM 140.4 mmol/L (137-145); TOTAL PROTEIN 6.7 g/dL (6.3-8.2)
[2017-12-30 12:34] LABS: CALCIUM 8.4 mg/dL (8.4-10.2)
[2017-12-30 12:40] LABS: ANION GAP 7 (5-19)
[2017-12-30 12:41] LABS: CARBON DIOXIDE 42 mmol/L (22-30)
--- NOTE | 2017-12-30 14:26 | RADIOLOGY REPORT (SQ) ---
EXAM DESCRIPTION: CHEST SINGLE VIEW COMPLETED DATE/TIME: 12/30/2017 2:04 pm REASON FOR STUDY: pleural effusion COMPARISON: Chest films 12/29/2017, 12/26/2017 EXAM PARAMETERS: NUMBER OF VIEWS: One view. TECHNIQUE: Left decubitus radiographic view of the chest acquired. RADIATION DOSE: NA LIMITATIONS: None. FINDINGS: Left decubitus chest film was performed. There is trace layering left pleural fluid. Patchy left retrocardiac airspace disease atelectasis versus pneumonia. Trace fluid in the right major fissure. Minimal right basilar atelectasis. No pneumothorax. Cardiac silhouette moderately enlarged, stable. Old sternotomy for CABG with right-sided multi lead pacemaker/defibrillator. Findings of chest film was discussed with Dr. Heaton IMPRESSION: Trace freely layering left pleural effusion. Repeat left Thoracentesis canceled. TECHNICAL DOCUMENTATION: JOB ID: [id number] [employer]- All Rights Reserved Reading location - IP/workstation name: [email or web address]
[2017-12-30 15:38] LABS: ANTIMYELOPEROXIDASE (MPO) AB <9.0 U/mL (0.0-9.0); ANTIPROTEINASE 3 (PR-3) AB <3.5 U/mL (0.0-3.5); CYTOPLASMIC (C-ANCA) <1:20 titer (Neg:<1:20)
--- NOTE | 2017-12-30 17:58 | PDOC PROGRESS REPORT ---
Subjective Progress Note for:: 12/30/17 - Patient seen on rounds this morning Subjective:: Patient son is at bedside. Patient requests to go home and wants to know when he can. Discussed about his current situation. Discussed about repeat therapeutic thoracentesis. Discussed about follow-up with his PCP and possibly estimation manager/sizing machine tender. Discussed about unclear etiology at this time of his pulmonary edema. Reason For Visit: ANEMIA HIGH OUTPUT HEART FAILURE AND Physical Exam Vital Signs: Temp Pulse Resp BP Pulse Ox 97.5 F 59 L 23 H 90/44 L 95 12/30/17 15:06 12/30/17 15:06 12/30/17 16:35 12/30/17 15:06 12/30/17 16:35 Intake & Output 12/29/17 12/30/17 12/31/17 06:59 06:59 06:59 Intake Total 1070 1550 50 Output Total 2500 2500 550 Balance -1430 -950 -500 Weight 254 lb 13.67 oz Results Laboratory Results: 12/28/17 04:40 12/30/17 10:51 12/29/17 12/30/17 12/30/17 14:45 10:51 10:51 Sodium 140.4 Potassium 4.2 Chloride 91 L Carbon Dioxide 42 H* Anion Gap 7 BUN 36 H Creatinine 1.43 H Est GFR ( Amer) 59 L Est GFR (Non-Af Amer) 48 L Glucose 91 Calcium 8.4 8.4 Magnesium 2.4 H Total Protein 6.7 Albumin 3.1 L Fluid Glucose 107 Fluid Total Protein 3.9 Fluid LDH 91 12/16/17 12/16/17 12/17/17 22:22 22:22 04:26 Creatine Kinase 32 L CK-MB (CK-2) 0.58 0.72 Troponin I 0.034 0.040 NT-Pro-B Natriuret Pep 12/17/17 12/17/17 12/17/17 04:26 10:17 10:17 Creatine Kinase 31 L 23 L CK-MB (CK-2) 0.85 Troponin I 0.037 NT-Pro-B Natriuret Pep 12/24/17 12/25/17 12/26/17 04:39 05:12 05:44 Creatine Kinase CK-MB (CK-2) Troponin I NT-Pro-B Natriuret Pep 3500 H 3040 H 3260 H 07/06/18 10:51 Creatine Kinase CK-MB (CK-2) Troponin I NT-Pro-B Natriuret Pep 2800 H Impressions: Venous Doppler Study 12/27/17 00:00 IMPRESSION: NO EVIDENCE DVT OR SVT IN EITHER LEG. Thoracentesis Ultrasound 12/29/17 00:00 IMPRESSION: SUCCESSFUL LEFT THERAPEUTIC AND DIAGNOSTIC THORACENTESIS USING ULTRASOUND GUIDANCE. Chest X-Ray 12/30/17 00:00 IMPRESSION: Trace freely layering left pleural effusion. Repeat left Thoracentesis canceled. Assessment & Plan - Diagnosis (1) Acute on chronic respiratory failure Is this a current diagnosis for this admission?: Yes (2) Pleural effusion, left Is this a current diagnosis for this admission?: Yes (3) LEYLA (acute kidney injury) Is this a current diagnosis for this admission?: Yes (4) COPD exacerbation Is this a current diagnosis for this admission?: Yes (5) Obstructive sleep apnea Is this a current diagnosis for this admission?: Yes - Plan Summary Plan Summary: 72-year-old male with multiple comorbidities admitted for shortness of breath and edema of the left which showed to be pleural effusion. He was initially diuresed with Lasix and underwent 2 ultrasound-guided thoracentesis, 1 L and 720 cc, and currently on 3 L nasal cannula as he is unable to tolerate room air. Yesterday's thoracentesis lab work was sent out and is pending. Is unclear why he continues to have pulmonary edema. Pulmonology had evaluated patient and believes that he will require BiPAP at home after discharge. I did get another x-ray today to see if he needs a therapeutic thoracentesis but unfortunately as per radiology there is not much fluid to be drained. His echo did not show any reduced ejection fraction. According to charts he has history of heart failure although he is not any Diuretics at this time. I am unable to start him on any diuretics due to systolic blood pressure less than 100. Spoke with sizing machine tender today and he recommends discharge home tomorrow and follow- up with his PCP and estimation manager. Possible DC in a.m. with oxygen. Acute kidney injury is improving-not sure if his creatinine baseline it has trended down to 1.4. Hemoglobin stable status post 1 unit packed red's. His acute anemia was likely secondary to anemia of chronic disease. COPD exacerbation-I am not so sure if he really had an exacerbation but currently he is on nasal cannula. His chart notes that he has COPD although I do not see any inhalers or nebulizers in his home medication. I will start him on DuoNeb nebulizer. His blood pressure has also been running a little bit low-I will give him a 500 cc bolus. I will decrease his Coreg to 3 mg twice daily instead of 6 mg twice daily.
[2017-12-30] MEDS ORDERED: NORMAL SALINE 1000 ML 500 ML IV ONE (18:30)
[2017-12-30] MEDS: IPRATROPIUM/ALBUTEROL 0.5-2.5 MG/3 ML AMPUL NEB SCH (20:05)
[2017-12-30] MEDS: CARVEDILOL 3.125 MG TABLET PO SCH (21:32)
[2017-12-30] MEDS: ATORVASTATIN CALCIUM 40 MG TABLET PO SCH (21:32)
[2017-12-30] MEDS: PHARMACY COMMUNICATION ORDER MC SCH (21:33)
[2017-12-31] MEDS: IPRATROPIUM/ALBUTEROL 0.5-2.5 MG/3 ML AMPUL NEB SCH ×4 (02:04→19:53)
[2017-12-31] MEDS ORDERED: FUROSEMIDE 20 MG TABLET PO SCH (10:00)
[2017-12-31 10:05] LABS: HEMATOCRIT 25.7 % (37.9-51.0); HEMOGLOBIN 8.6 g/dL (13.5-17.0); MEAN CORPUSCULAR HEMOGLOBIN 29.5 pg (27.0-33.4); MEAN CORPUSCULAR HGB CONC 33.7 g/dL (32.0-36.0); MEAN CORPUSCULAR VOLUME 88 fl (80-97); PLATELET COUNT 165 10^3/uL (150-450); RED BLOOD COUNT 2.93 10^6/uL (4.35-5.55); RED CELL DISTRIBUTION WIDTH 16.4 % (11.5-14.0); WHITE BLOOD COUNT 4.6 10^3/uL (4.0-10.5)
[2017-12-31 10:17] LABS: ATYPICAL PANCA <1:20 titer (Neg:<1:20); PERINUCLEAR (P-ANCA) <1:20 titer (Neg:<1:20)
[2017-12-31] MEDS: CARVEDILOL 3.125 MG TABLET PO SCH ×2 (10:18→21:37)
[2017-12-31] MEDS: AMIODARONE HCL 200 MG TABLET PO SCH (10:19)
[2017-12-31] MEDS: SERTRALINE HCL 50 MG TABLET PO SCH (10:19)
[2017-12-31] MEDS: DOCUSATE SODIUM 100 MG CAPSULE PO SCH (10:19)
[2017-12-31] MEDS: LIDOCAINE 5% (700 MG) TRANSDERMAL ADH..PATCH TP SCH (10:19)
[2017-12-31] MEDS: ASPIRIN 81 MG TABLET, ENT COATED PO SCH (10:19)
[2017-12-31] MEDS: APIXABAN 5 MG TABLET PO SCH ×2 (10:19→18:47)
[2017-12-31] MEDS: MULTIVITAMIN TABLET PO SCH (10:19)
[2017-12-31 10:24] LABS: BLOOD UREA NITROGEN 38 mg/dL (7-20); CALCIUM 8.5 mg/dL (8.4-10.2); CHLORIDE 93 mmol/L (98-107); GLUCOSE 80 mg/dL (75-110); POTASSIUM 4.7 mmol/L (3.6-5.0); SODIUM 140.1 mmol/L (137-145)
[2017-12-31] MEDS: OXYCODONE-ACETAMINOPHEN 5-325 MG TABLET PO PRN ×3 (10:29→23:11)
[2017-12-31 10:30] LABS: ANION GAP 7 (5-19)
[2017-12-31 11:10] LABS: CARBON DIOXIDE 40 mmol/L (22-30)
[2017-12-31] MEDS: OXYCODONE HCL IR 5 MG TABLET PO PRN ×2 (16:53→23:11)
--- NOTE | 2017-12-31 18:27 | PDOC PROGRESS REPORT ---
Subjective Progress Note for:: 12/31/17 - Patient seen on rounds this morning Subjective:: Patient states that he is feeling better today. States he has had baseline he feels like. States he wants to go home. States he has had 3 L of oxygen at home and currently he is using that at the hospital. I talked to his son who is at bedside and patient regarding his Lasix use at home. Patient states he did not use Lasix unless he needs it while son says that he is 40 mg twice daily. Clearly there is some lack of communication and I am not sure whether he is on Lasix and how much dose he is on. I discussed with him about starting on Lasix and they are agreeable. I had a long conversation with both of them regarding his left-sided pleural effusion which looks like some type of consolidation and exudative in nature. Given this history I think he will need follow-up with cardiothoracic surgeon and have spoken to him about this. I told him that he is back at baseline but this can worsen over the next few weeks and he will need thoracentesis versus cardiothoracic surgery intervention. They both understand and will try to make contact after discharge. Reason For Visit: ANEMIA HIGH OUTPUT HEART FAILURE AND Physical Exam Vital Signs: Temp Pulse Resp BP Pulse Ox 98.3 F 60 17 103/54 L 97 12/31/17 15:09 12/31/17 15:09 12/31/17 16:46 12/31/17 15:09 12/31/17 16:46 Intake & Output 12/30/17 12/31/17 01/01/18 06:59 06:59 06:59 Intake Total 1550 1384 558 Output Total 9390 1825 775 Balance -950 -441 -217 Weight 254 lb 13.67 oz 254 lb 10.142 oz General appearance: PRESENT: no acute distress, disheveled, other - He appears older than stated age Head exam: PRESENT: atraumatic, normocephalic Eye exam: PRESENT: EOMI. ABSENT: conjunctival injection, scleral icterus Ear exam: PRESENT: normal external ear exam Mouth exam: PRESENT: moist, neck supple Teeth exam: PRESENT: poor dentation Respiratory exam: PRESENT: decreased breath sounds - Bilaterally and mostly of the left. Occasional expiratory wheezes, wheezes Cardiovascular exam: PRESENT: +S1, +S2 Pulses: PRESENT: +2 pedal pulses bilateral Vascular exam: PRESENT: normal capillary refill GI/Abdominal exam: PRESENT: normal bowel sounds, soft. ABSENT: tenderness Extremities exam: ABSENT: calf tenderness, +2 edema Neurological exam: PRESENT: alert, awake, CN II-XII grossly intact Skin exam: PRESENT: dry, warm Results Laboratory Results: 12/31/17 09:40 12/31/17 09:40 12/31/17 12/31/17 09:40 09:40 WBC 4.6 RBC 2.93 L Hgb 8.6 L Hct 25.7 L MCV 88 MCH 29.5 MCHC 33.7 RDW 16.4 H Plt Count 165 Sodium 140.1 Potassium 4.7 Chloride 93 L Carbon Dioxide 40 H* Anion Gap 7 BUN 38 H Creatinine 1.24 Est GFR ( Amer) > 60 Est GFR (Non-Af Amer) 57 L Glucose 80 Calcium 8.5 12/16/17 12/16/17 12/17/17 22:22 22:22 04:26 Creatine Kinase 32 L CK-MB (CK-2) 0.58 0.72 Troponin I 0.034 0.040 NT-Pro-B Natriuret Pep 12/17/17 12/17/17 12/17/17 04:26 10:17 10:17 Creatine Kinase 31 L 23 L CK-MB (CK-2) 0.85 Troponin I 0.037 NT-Pro-B Natriuret Pep 12/24/17 12/25/17 12/26/17 04:39 05:12 05:44 Creatine Kinase CK-MB (CK-2) Troponin I NT-Pro-B Natriuret Pep 3500 H 3040 H 3260 H 12/30/17 10:51 Creatine Kinase CK-MB (CK-2) Troponin I NT-Pro-B Natriuret Pep 2800 H Impressions: Venous Doppler Study 12/27/17 00:00 IMPRESSION: NO EVIDENCE DVT OR SVT IN EITHER LEG. Thoracentesis Ultrasound 12/29/17 00:00 IMPRESSION: SUCCESSFUL LEFT THERAPEUTIC AND DIAGNOSTIC THORACENTESIS USING ULTRASOUND GUIDANCE. Chest X-Ray 12/30/17 00:00 IMPRESSION: Trace freely layering left pleural effusion. Repeat left Thoracentesis canceled. Assessment & Plan - Diagnosis (1) Acute on chronic respiratory failure Is this a current diagnosis for this admission?: Yes (2) Pleural effusion, left Is this a current diagnosis for this admission?: Yes (3) LEYLA (acute kidney injury) Is this a current diagnosis for this admission?: Yes (4) COPD exacerbation Is this a current diagnosis for this admission?: Yes (5) Obstructive sleep apnea Is this a current diagnosis for this admission?: Yes - Plan Summary Plan Summary: He is doing well today and wants to go home. His son also was taken home. We discussed about need for thoracic surgery since he has exhibited pleural effusion on the left side. I started him back on his Lasix today in hopes of getting some fluid out-family and patient are not sure how much dose that she is taking so I started him on Lasix 40 mg daily. He is currently at baseline with 3 L of nasal cannula. We have discussed about outpatient help with cardiothoracic surgery, PCP and pulmonology. They are in agreement with this plan. His blood culture remains negative. His blood work is negative for c- ANCA and p-ANCA. NASH is still pending but rheumatoid factor is negative. His thoracentesis total protein showed 3.9 which is indicative of exudate fluid. Unfortunately he is requiring CPAP at night and did not have the machine at home at this time. From what I understand he will not get the CPAP machine at home until Tuesday. Hence he will have to wait in the hospital over the weekend until CPAP was delivered to his house.
[2017-12-31] MEDS: ATORVASTATIN CALCIUM 40 MG TABLET PO SCH (21:37)
[2017-12-31] MEDS: PHARMACY COMMUNICATION ORDER MC SCH (21:37)
[2018-01-01] MEDS: IPRATROPIUM/ALBUTEROL 0.5-2.5 MG/3 ML AMPUL NEB SCH ×4 (02:02→20:13)
[2018-01-01] MEDS: OXYCODONE HCL IR 5 MG TABLET PO PRN ×3 (05:39→19:00)
[2018-01-01] MEDS: OXYCODONE-ACETAMINOPHEN 5-325 MG TABLET PO PRN ×3 (05:40→19:00)
[2018-01-01 09:29] LABS: ANTINUCLEAR ANTIBODIES Negative (Negative)
[2018-01-01] MEDS: SERTRALINE HCL 50 MG TABLET PO SCH (09:37)
[2018-01-01] MEDS: DOCUSATE SODIUM 100 MG CAPSULE PO SCH (09:37)
[2018-01-01] MEDS: FUROSEMIDE 40 MG TABLET PO SCH (09:37)
[2018-01-01] MEDS: ASPIRIN 81 MG TABLET, ENT COATED PO SCH (09:38)
[2018-01-01] MEDS: CARVEDILOL 3.125 MG TABLET PO SCH ×2 (09:38→21:30)
[2018-01-01] MEDS: APIXABAN 5 MG TABLET PO SCH ×2 (09:38→17:47)
[2018-01-01] MEDS: MULTIVITAMIN TABLET PO SCH (09:38)
[2018-01-01] MEDS: AMIODARONE HCL 200 MG TABLET PO SCH (09:39)
[2018-01-01] MEDS: LIDOCAINE 5% (700 MG) TRANSDERMAL ADH..PATCH TP SCH (09:40)
--- NOTE | 2018-01-01 12:41 | PDOC PROGRESS REPORT ---
Subjective Progress Note for:: 01/01/18 - seen on rounds this morning Subjective:: Patient seen on rounds this morning and was sleeping comfortably with his BiPAP. I did wake him up. States he has no new complaints at this time. Reason For Visit: ANEMIA HIGH OUTPUT HEART FAILURE AND Physical Exam Vital Signs: Temp Pulse Resp BP Pulse Ox 97.5 F 120 H 17 94/43 L 95 01/01/18 11:13 01/01/18 11:13 01/01/18 11:13 01/01/18 11:13 01/01/18 11:13 Intake & Output 12/31/17 01/01/18 01/02/18 06:59 06:59 06:59 Intake Total 1384 1005 236 Output Total 1825 1575 675 Balance -441 570 -439 Weight 254 lb 10.142 oz 263 lb 10.766 oz General appearance: PRESENT: no acute distress, disheveled, obese Eye exam: PRESENT: EOMI. ABSENT: conjunctival injection, scleral icterus Ear exam: PRESENT: normal external ear exam Teeth exam: PRESENT: poor dentation Neck exam: PRESENT: full ROM. ABSENT: JVD, tenderness Respiratory exam: PRESENT: decreased breath sounds - Decreased breath sounds on the left side, wheezes - History wheezing occasionally scattered bilaterally Cardiovascular exam: PRESENT: +S1, +S2 Pulses: PRESENT: +2 pedal pulses bilateral Vascular exam: PRESENT: normal capillary refill GI/Abdominal exam: PRESENT: normal bowel sounds, soft. ABSENT: tenderness Extremities exam: ABSENT: joint swelling, tenderness Neurological exam: PRESENT: alert, awake, CN II-XII grossly intact Skin exam: PRESENT: dry, warm Results Laboratory Results: 12/31/17 09:40 12/31/17 09:40 12/29/17 14:45 Pleural Fluid Gram Stain - Final 12/29/17 14:45 Pleural Fluid Body Fluid Culture - Final NO AEROBIC OR ANAEROBIC ORGANISMS RECOVERED 12/16/17 12/16/17 12/17/17 22:22 22:22 04:26 Creatine Kinase 32 L CK-MB (CK-2) 0.58 0.72 Troponin I 0.034 0.040 NT-Pro-B Natriuret Pep 12/17/17 12/17/17 12/17/17 04:26 10:17 10:17 Creatine Kinase 31 L 23 L CK-MB (CK-2) 0.85 Troponin I 0.037 NT-Pro-B Natriuret Pep 12/24/17 12/25/17 12/26/17 04:39 05:12 05:44 Creatine Kinase CK-MB (CK-2) Troponin I NT-Pro-B Natriuret Pep 3500 H 3040 H 3260 H 12/30/17 10:51 Creatine Kinase CK-MB (CK-2) Troponin I NT-Pro-B Natriuret Pep 2800 H Impressions: Venous Doppler Study 12/27/17 00:00 IMPRESSION: NO EVIDENCE DVT OR SVT IN EITHER LEG. Thoracentesis Ultrasound 12/29/17 00:00 IMPRESSION: SUCCESSFUL LEFT THERAPEUTIC AND DIAGNOSTIC THORACENTESIS USING ULTRASOUND GUIDANCE. Chest X-Ray 12/30/17 00:00 IMPRESSION: Trace freely layering left pleural effusion. Repeat left Thoracentesis canceled. Assessment & Plan - Diagnosis (1) Acute on chronic respiratory failure Is this a current diagnosis for this admission?: Yes (2) Pleural effusion, left Is this a current diagnosis for this admission?: Yes (3) LEYLA (acute kidney injury) Is this a current diagnosis for this admission?: Yes (4) COPD exacerbation Is this a current diagnosis for this admission?: Yes (5) Obstructive sleep apnea Is this a current diagnosis for this admission?: Yes - Plan Summary Plan Summary: Patient is doing well today and has no acute problems. He is currently at baseline using supplemental O2. We are still awaiting on case management to get him a BiPAP/CPAP machine at home. Due to the weekend they were unable to deliver to him. Once he has his machine at home he will be able to go home. He is aware that he needs to speak with the cardiothoracic surgery and/or pulmonology regarding his left-sided pleural effusion. He is doing well on his Lasix at this time. I am hoping that he can be discharged tomorrow to home with home health.
[2018-01-01] MEDS: ATORVASTATIN CALCIUM 40 MG TABLET PO SCH (21:29)
[2018-01-01] MEDS: PHARMACY COMMUNICATION ORDER MC SCH (21:30)
[2018-01-02] MEDS: OXYCODONE-ACETAMINOPHEN 5-325 MG TABLET PO PRN ×4 (01:09→22:02)
[2018-01-02] MEDS: OXYCODONE HCL IR 5 MG TABLET PO PRN ×4 (01:09→22:03)
[2018-01-02] MEDS: IPRATROPIUM/ALBUTEROL 0.5-2.5 MG/3 ML AMPUL NEB SCH ×4 (02:34→19:55)
[2018-01-02] MEDS: DOCUSATE SODIUM 100 MG CAPSULE PO SCH (10:28)
[2018-01-02] MEDS: MULTIVITAMIN TABLET PO SCH (10:29)
[2018-01-02] MEDS: CARVEDILOL 3.125 MG TABLET PO SCH ×2 (10:30→21:11)
[2018-01-02] MEDS: ASPIRIN 81 MG TABLET, ENT COATED PO SCH (10:30)
[2018-01-02] MEDS: FUROSEMIDE 40 MG TABLET PO SCH (10:30)
[2018-01-02] MEDS: APIXABAN 5 MG TABLET PO SCH ×2 (10:31→17:33)
[2018-01-02] MEDS: LIDOCAINE 5% (700 MG) TRANSDERMAL ADH..PATCH TP SCH (10:31)
[2018-01-02] MEDS: SERTRALINE HCL 50 MG TABLET PO SCH (10:31)
[2018-01-02] MEDS: AMIODARONE HCL 200 MG TABLET PO SCH (10:31)
--- NOTE | 2018-01-02 19:30 | PDOC PROGRESS REPORT ---
Subjective Progress Note for:: 01/02/18 - Patient seen on rounds this morning Subjective:: Patient has no acute complaints this morning. He was sleeping comfortably when I walked into the room. Reason For Visit: ANEMIA HIGH OUTPUT HEART FAILURE AND Physical Exam Vital Signs: Temp Pulse Resp BP Pulse Ox 97.9 F 67 17 98/52 L 99 01/02/18 12:24 01/02/18 14:21 01/02/18 14:21 01/02/18 12:24 01/02/18 12:24 Intake & Output 01/01/18 01/02/18 01/03/18 06:59 06:59 06:59 Intake Total 1005 1362 950 Output Total 1575 1675 925 Balance -570 -313 25 Weight 263 lb 10.766 oz 244 lb 4.355 oz General appearance: PRESENT: no acute distress, obese Head exam: PRESENT: atraumatic, normocephalic Eye exam: PRESENT: EOMI. ABSENT: conjunctival injection, scleral icterus Ear exam: PRESENT: normal external ear exam Mouth exam: PRESENT: moist, neck supple Teeth exam: PRESENT: poor dentation Neck exam: PRESENT: full ROM. ABSENT: JVD, tenderness Respiratory exam: PRESENT: decreased breath sounds - Decreased breath sounds bilaterally but more so on the left than the right. Occasional rhonchi and exaggerated wheezing bilaterally, wheezes. ABSENT: chest wall tenderness, crackles Cardiovascular exam: PRESENT: RRR, +S1, +S2 Pulses: PRESENT: +2 pedal pulses bilateral GI/Abdominal exam: PRESENT: normal bowel sounds, soft. ABSENT: tenderness Extremities exam: ABSENT: joint swelling, pedal edema Musculoskeletal exam: ABSENT: tenderness Skin exam: PRESENT: dry, warm Results Laboratory Results: 12/31/17 09:40 12/31/17 09:40 12/16/17 12/16/17 12/17/17 22:22 22:22 04:26 Creatine Kinase 32 L CK-MB (CK-2) 0.58 0.72 Troponin I 0.034 0.040 NT-Pro-B Natriuret Pep 12/17/17 12/17/17 12/17/17 04:26 10:17 10:17 Creatine Kinase 31 L 23 L CK-MB (CK-2) 0.85 Troponin I 0.037 NT-Pro-B Natriuret Pep 06/12/25/17 12/26/17 04:39 05:12 05:44 Creatine Kinase CK-MB (CK-2) Troponin I NT-Pro-B Natriuret Pep 3500 H 3040 H 3260 H 12/30/17 10:51 Creatine Kinase CK-MB (CK-2) Troponin I NT-Pro-B Natriuret Pep 2800 H Impressions: Venous Doppler Study 12/27/17 00:00 IMPRESSION: NO EVIDENCE DVT OR SVT IN EITHER LEG. Thoracentesis Ultrasound 12/29/17 00:00 IMPRESSION: SUCCESSFUL LEFT THERAPEUTIC AND DIAGNOSTIC THORACENTESIS USING ULTRASOUND GUIDANCE. Chest X-Ray 12/30/17 00:00 IMPRESSION: Trace freely layering left pleural effusion. Repeat left Thoracentesis canceled. Assessment & Plan - Diagnosis (1) Acute on chronic respiratory failure Is this a current diagnosis for this admission?: Yes (2) Pleural effusion, left Is this a current diagnosis for this admission?: Yes (3) LEYLA (acute kidney injury) Is this a current diagnosis for this admission?: Yes (4) COPD exacerbation Is this a current diagnosis for this admission?: Yes (5) Obstructive sleep apnea Is this a current diagnosis for this admission?: Yes - Time Time Spent with patient: 15-24 minutes - Plan Summary Plan Summary: Patient is doing well currently. He has been doing better with his BiPAP at night. Over the weekend he was supposed to go home but unfortunately his trilogy was not delivered to his house. This morning I was supposed to discharge him but his equipment was still not discharged home. I consulted case management and they told me that his machine will come to the hospital this afternoon. The new machine is not trilogy and it is a different type of machine which will help him with his need for CPAP at night. Patient has no idea how to use his new machine and hence I think it would be beneficial if he learns to use it tonight and has no respiratory distress before he can be discharged. Unfortunately machine did not come until after 3 PM and hence patient remained in the hospital again today. If he does well tonight he should be able to go home tomorrow on it. Patient has left-sided consolidation of his lungs and I discussed with him regarding follow-up with thoracic surgeon. Johnny given him the name of Dr. dubon [facility] which she can follow with. I have also talked with case management and nursing staff to get him an appointment with a thoracic surgeon and they are trying to get him one. But to make an appointment with a thoracic surgeon they need a discharge summary which we do not have yet. Tomorrow hopefully when he is discharged nursing can make an appointment. Otherwise COPD is well controlled. I start him back on his home medications. He has no other acute complaints.
[2018-01-02] MEDS: ATORVASTATIN CALCIUM 40 MG TABLET PO SCH (21:11)
[2018-01-02] MEDS: PHARMACY COMMUNICATION ORDER MC SCH (21:17)
[2018-01-03] MEDS: IPRATROPIUM/ALBUTEROL 0.5-2.5 MG/3 ML AMPUL NEB SCH ×3 (02:21→13:58)
[2018-01-03] MEDS: OXYCODONE HCL IR 5 MG TABLET PO PRN ×2 (05:27→11:39)
[2018-01-03] MEDS: OXYCODONE-ACETAMINOPHEN 5-325 MG TABLET PO PRN ×2 (05:28→11:38)
[2018-01-03] MEDS: FUROSEMIDE 40 MG TABLET PO SCH (10:54)
[2018-01-03] MEDS: AMIODARONE HCL 200 MG TABLET PO SCH (10:54)
[2018-01-03] MEDS: MULTIVITAMIN TABLET PO SCH (10:54)
[2018-01-03] MEDS: APIXABAN 5 MG TABLET PO SCH (10:54)
[2018-01-03] MEDS: DOCUSATE SODIUM 100 MG CAPSULE PO SCH (10:54)
[2018-01-03] MEDS: SERTRALINE HCL 50 MG TABLET PO SCH (10:54)
[2018-01-03] MEDS: ASPIRIN 81 MG TABLET, ENT COATED PO SCH (11:02)
[2018-01-03] MEDS: LIDOCAINE 5% (700 MG) TRANSDERMAL ADH..PATCH TP SCH (11:03)
[2018-01-03 14:17] VITALS: BP 117/54
--- NOTE | 2018-01-03 15:10 | PDOC DISCHARGE SUMMARY ---
General - Admit/Disc Date/PCP Admission Date/Primary Care Provider: 12/16/17 19:31 MAURICE ORTIZ, Discharge Date: 01/03/18 - Discharge Diagnosis (1) LEYLA (acute kidney injury) Is this a current diagnosis for this admission?: Yes (2) Acute on chronic respiratory failure Is this a current diagnosis for this admission?: Yes (3) COPD exacerbation Is this a current diagnosis for this admission?: Yes (4) Hyperkalemia Is this a current diagnosis for this admission?: Yes (5) Pleural effusion, left Is this a current diagnosis for this admission?: Yes Summary: Exudative. No evidence of infection. Follow-up as an outpatient with CT surgery. (6) Diabetes mellitus Is this a current diagnosis for this admission?: Yes (7) Hypertension Is this a current diagnosis for this admission?: Yes (8) Morbid obesity with BMI of 40.0-44.9, adult Is this a current diagnosis for this admission?: Yes (9) AICD present, double chamber Is this a current diagnosis for this admission?: Yes (10) CAD (coronary artery disease) Is this a current diagnosis for this admission?: Yes (11) History of pulmonary embolism Is this a current diagnosis for this admission?: Yes (12) History of atrial fibrillation Is this a current diagnosis for this admission?: Yes (13) Hypercapnia Is this a current diagnosis for this admission?: Yes (14) Debility Is this a current diagnosis for this admission?: Yes (15) Anemia Is this a current diagnosis for this admission?: Yes - Additional Information Resuscitation Status: Full Code Discharge Diet: Cardiac, Diabetic Discharge Activity: Activity As Tolerated, Balance Activity w/Rest, Weigh Daily Home Medications: Amiodarone HCl [Pacerone] 200 mg PO DAILY 12/16/17 Apixaban [Eliquis] 5 mg PO Q12 12/16/17 Aspirin [Ecotrin 81 mg EC Tablet] 81 mg PO DAILY 12/16/17 Atorvastatin Calcium [Lipitor 40 mg Tablet] 40 mg PO DAILY 12/16/17 Methocarbamol [Robaxin 750 mg Tablet] 750 mg PO Q6HP PRN 12/16/17 Multivitamin [Tab-A-Caroline (Multiple Vitamin) Tablet] 1 tab PO DAILY 12/16/17 Omeprazole 20 mg PO QAM 12/16/17 Oxycodone HCl/Acetaminophen [Endocet 10-325 mg Tablet] 1 tab PO Q6HP PRN Sertraline HCl [Zoloft 50 mg Tablet] 50 mg PO DAILY 12/16/17 Umeclidinium Brm/Vilanterol Tr [Anoro Ellipta 62.5-25 Mcg INH] 1 puff IH QAM Acetaminophen [Tylenol 325 mg Tablet] 650 mg PO Q4HP PRN tablet 01/03/18 Apixaban [Eliquis 5 mg Tablet] 5 mg PO BID tablet 01/03/18 Docusate Sodium [Colace 100 mg Capsule] 200 mg PO DAILY capsule 01/03/18 Furosemide [Lasix 40 mg Tablet] 40 mg PO DAILY tablet 01/03/18 History of Present Illness History of Present Illness: The patient is a 72-year-old gentleman with past medical history of Hypertension Diabetes, diet controlled Coronary artery disease COPD on 3L by NC Obstructive sleep apnea Diastolic CHF Obesity hypoventilation syndrome CABG Atrial fibrillation Chronic pain Depression Chronic anticoagulation with Eliquis History of pulmonary embolism Arthritis AICD Morbid obesity Echocardiogram done on December 19 showed a left ventricular ejection fraction of 65 % Mild tricuspid regurgitation. Right ventricular systolic pressure was 43 mmHg He presented to the emergency room on December 16 with shortness of breath and edema a left-sided pleural effusion and acute renal failure. The patient was started on BiPAP, diuresed with Lasix and underwent ultrasound- guided thoracentesis- 720 cc fluid removed. Cytology was negative. He continued to require 3L NC O2. He was found to have significant hypercapnia and somnolence off BiPAP. Chest Xray showed a recurrent L pleural effusion, repeat thoracentesis was done on December 29. Fluid was exudative with no evidence of infection. Due to significant hypercapnia secondary to obstructive sleep apnea BiPAP was arranged for home use. He was seen by the cardiology and pulmonology services. The patient is also anemic and was given 1 unit of packed red blood cells. No overt bleeding. He is to see gastroenterology as an outpatient. He is stable for discharge home with home health and home physical therapy. Hospital Course Hospital Course: As above. Physical Exam Vital Signs: Temp Pulse Resp BP Pulse Ox 97.4 F 85 17 117/54 L 94 01/03/18 14:15 01/03/18 14:15 01/03/18 14:15 01/03/18 14:15 01/03/18 14:15 Intake & Output 01/02/18 01/03/18 01/04/18 06:59 06:59 06:59 Intake Total 1362 1399 625 Output Total 7112 5785 850 Balance -313 -576 -225 Weight 110.8 kg 120.5 kg General appearance: PRESENT: no acute distress, obese Respiratory exam: PRESENT: symmetrical, unlabored Results Laboratory Results: 12/31/17 09:40 12/31/17 09:40 12/16/17 12/16/17 12/17/17 22:22 22:22 04:26 Creatine Kinase 32 L CK-MB (CK-2) 0.58 0.72 Troponin I 0.034 0.040 NT-Pro-B Natriuret Pep 12/17/17 12/17/17 12/17/17 04:26 10:17 10:17 Creatine Kinase 31 L 23 L CK-MB (CK-2) 0.85 Troponin I 0.037 NT-Pro-B Natriuret Pep 12/24/17 12/25/17 12/26/17 04:39 05:12 05:44 Creatine Kinase CK-MB (CK-2) Troponin I NT-Pro-B Natriuret Pep 3500 H 3040 H 3260 H 12/30/17 10:51 Creatine Kinase CK-MB (CK-2) Troponin I NT-Pro-B Natriuret Pep 2800 H Impressions: Venous Doppler Study 12/27/17 00:00 IMPRESSION: NO EVIDENCE DVT OR SVT IN EITHER LEG. Thoracentesis Ultrasound 12/29/17 00:00 IMPRESSION: SUCCESSFUL LEFT THERAPEUTIC AND DIAGNOSTIC THORACENTESIS USING ULTRASOUND GUIDANCE. Chest X-Ray 12/30/17 00:00 IMPRESSION: Trace freely layering left pleural effusion. Repeat left Thoracentesis canceled. Qualifiers - * PATIENT BEING DISCHARGED WITH ANY OF THE FOLLOWING DIAGNOSIS: No Plan Time Spent: Greater than 30 Minutes
== END 2018-01-03 16:39 | disposition home health service (06) | DRG 291 ==
LOC: ER 15:46 → EH 19:31 → 3W 22:27
PROVIDERS: ADMIT Internal Medicine; ATTEND Internal Medicine
PROC: 5A09357 Assistance with Respiratory Ventilation, Less than 24 Consecutive Hours, Continuous Positive Airway Pressure (ICD-10-PCS; 2017-12-16)
PROC: 0W9B3ZZ Drainage of Left Pleural Cavity, Percutaneous Approach (ICD-10-PCS; principal; 2017-12-18)
PROC: 30233N1 Transfusion of Nonautologous Red Blood Cells into Peripheral Vein, Percutaneous Approach (ICD-10-PCS; 2017-12-27)
PROC: 0W9B3ZZ Drainage of Left Pleural Cavity, Percutaneous Approach (ICD-10-PCS; 2017-12-29)
DX: I11.0 Hypertensive heart disease with heart failure (principal); J96.22 Acute and chronic respiratory failure with hypercapnia; J44.1 Chronic obstructive pulmonary disease with (acute) exacerbation; N17.9 Acute kidney failure, unspecified; J90 Pleural effusion, not elsewhere classified; E66.2 Morbid (severe) obesity with alveolar hypoventilation; Z68.41 Body mass index [BMI] 40.0-44.9, adult; I50.23 Acute on chronic systolic (congestive) heart failure; E87.5 Hyperkalemia; E11.9 Type 2 diabetes mellitus without complications; D50.9 Iron deficiency anemia, unspecified; I48.91 Unspecified atrial fibrillation; I25.10 Atherosclerotic heart disease of native coronary artery without angina pectoris; F32.9 Major depressive disorder, single episode, unspecified; M19.90 Unspecified osteoarthritis, unspecified site; Z79.02 Long term (current) use of antithrombotics/antiplatelets; Z79.899 Other long term (current) drug therapy; Z86.711 Personal history of pulmonary embolism; Z95.810 Presence of automatic (implantable) cardiac defibrillator; I25.2 Old myocardial infarction; Z95.1 Presence of aortocoronary bypass graft; Z87.891 Personal history of nicotine dependence
CPT/HCPCS: 32555; 36415; 36430; 36600; 71045; 71046; 80048; 80053; 80307; 81001; 82040; 82272; 82310; 82550; 82553; 82607; 82728; 82746; 82803; 82945; 82962; 83010; 83036; 83516; 83540; 83550; 83615; 83735; 83880; 84100; 84155; 84157; 84443; 84484; 85025; 85027; 85045; 85610; 85652; 85730; 86038; 86140; 86256; 86430; 86850; 86900; 86901; 86920; 87070; 87075; 87205; 88305; 89050; 93005; 93010; 93306; 93970; 94640; 94660; 99285; G8978-GP; G8979-GP; G8980-GP; J1644; J1756; J1940; J3490; J7030; J7620; P9016

== ENCOUNTER 2018-01-09 17:54 | Inpatient (IN) | payer MEDICARE, MEDICAID ==
--- NOTE | 2018-01-09 18:29 | ER Document Report ---
ED General - General Stated Complaint: LIGHT HEADED Time Seen by Provider: 01/09/18 18:19 Mode of Arrival: Ambulatory Information source: Patient Notes: 72-year-old male with congestive heart failure, coronary artery disease, COPD, diabetes, with a pacemaker presents after a fall at home. Patient states that he walked out of his bathroom and fell onto a carpeted floor. He believes that he may have lost consciousness. He is currently complaining of headache, upper back pain. Patient denies any preceding chest pain, shortness of breath, palpitations. He does admit to preceding dizziness. he denies any current chest pain. Patient was recently discharged from the hospital on January 04, 2018 he was admitted for hyperkalemia, respiratory failure. TRAVEL OUTSIDE OF THE [place] IN LAST 30 DAYS: No - HPI Onset: Just prior to arrival Onset/Duration: Sudden Quality of pain: Achy Severity: Mild Associated symptoms: None Exacerbated by: Denies Relieved by: Denies Similar symptoms previously: Yes Recently seen / treated by doctor: Yes - Related Data Allergies/Adverse Reactions: No Known Allergies Allergy (Verified 08/05/17 14:09) Past Medical History - General Information source: Patient, [facility] Records - Social History Smoking Status: Current Every Day Smoker Cigarette use (# per day): Yes Smoking Education Provided: Yes Frequency of alcohol use: None Drug Abuse: None Lives with: Family Family History: CAD, COPD - Past Medical History Cardiac Medical History: Reports: Hx Congestive Heart Failure, Hx Coronary Artery Disease, Hx Heart Attack, Hx Hypertension, Hx Pulmonary Embolism Pulmonary Medical History: Reports: Hx COPD Neurological Medical History: Denies: Hx Seizures Endocrine Medical History: Reports: Hx Diabetes Mellitus Type 2 - History of same, but only on medication for short time. 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 Denies recent illness. Denies weight loss, recent hospitalizations. EENT: Denies visual changes, eye pain. Denies nasal or sinus congestion or discharge. Denies sore throat, oral lesions, difficulty swallowing. CARDIOVASCULAR: Denies chest pain. Denies palpitations. Denies lower extremity edema. RESPIRATORY: Denies cough, cold, or chest congestion. Denies shortness of breath, wheezing. GASTROINTESTINAL: Denies abdominal pain or distention. Denies nausea, vomiting , or diarrhea. Denies blood in vomitus, stools, or per rectum. Denies black, tarry stools. Denies constipation. GENITOURINARY: Denies difficulty urinating, painful urination, frequency, blood in urine, or vaginal discharge. MUSCULOSKELETAL: Denies joint pain or swelling. SKIN: Denies rash, lesions or sores. HEMATOLOGIC : Denies easy bruising or bleeding. LYMPHATIC: Denies swollen glands. NEUROLOGICAL: Denies confusion or altered mental status. Denies passing out or loss of consciousness. Denies headache. Denies weakness or paralysis. Denies problems difficulty with ambulation, slurred speech. Denies sensory loss , numbness, or tingling. Denies seizures. PSYCHIATRIC: Denies anxiety or stress. Denies depression, suicidal ideation, or homicidal ideation. Denies visual or auditory hallucinations. Physical Exam - Vital signs Vitals: Resp Pulse Ox 17 98 01/09/18 21:36 01/09/18 21:36 - Notes Notes: PHYSICAL EXAMINATION: GENERAL: Well-appearing, well-nourished and in no acute distress. HEAD: Atraumatic, normocephalic. EYES: Pupils equal round and reactive to light, extraocular movements intact, sclera anicteric, conjunctiva are normal. ENT: Nares patent, oropharynx clear without exudates. Moist mucous membranes. NECK: Normal range of motion, supple without lymphadenopathy. Midline tenderness. LUNGS: Diminished breath sounds bilaterally. No wheezes rales or rhonchi. HEART: Regular rate and rhythm without murmurs ABDOMEN: Soft, nontender, nondistended abdomen. No guarding, no rebound. No masses appreciated. Musculoskeletal: Normal range of motion, no pitting or edema. No cyanosis. Tenderness of the paraspinal musculature of the thoracic spine NEUROLOGICAL: Cranial nerves grossly intact. Normal speech, normal gait. Normal sensory, motor exams PSYCH: Normal mood, normal affect. SKIN: Warm, Dry, normal turgor, no rashes or lesions noted. Course - Re-evaluation Re-evalutation: 01/09/18 21:57 Laboratory 01/09/18 01/09/18 01/09/18 20:08 20:08 20:08 WBC 4.8 RBC 3.11 L Hgb 8.9 L Hct 27.1 L MCV 87 MCH 28.7 MCHC 32.9 RDW 16.8 H Plt Count 205 Seg Neutrophils % 55.7 Lymphocytes % 29.8 Monocytes % 9.0 Eosinophils % 4.7 Basophils % 0.8 Absolute Neutrophils 2.7 Absolute Lymphocytes 1.4 Absolute Monocytes 0.4 Absolute Eosinophils 0.2 Absolute Basophils 0.0 Sodium 144.1 Potassium 4.0 Chloride 101 Carbon Dioxide 32 H Anion Gap 11 BUN 16 Creatinine 1.29 H Est GFR ( Amer) > 60 Est GFR (Non-Af Amer) 55 L Glucose 70 L Calcium 8.7 Total Bilirubin 0.7 Direct Bilirubin 0.3 Neonat Total Bilirubin Not Reportable Neonat Direct Bilirubin Not Reportable Neonat Indirect Bili Not Reportable AST 25 ALT 20 L Alkaline Phosphatase 78 Creatine Kinase 38 L CK-MB (CK-2) 0.56 Troponin I 0.026 NT-Pro-B Natriuret Pep 5170 H Total Protein 7.2 Albumin 3.[address] 01/09/18 18:27 IMPRESSION: CHRONIC DEGENERATIVE CHANGES. NO ACUTE FINDINGS. Left pleural effusion. Head CT 01/09/18 18:27 IMPRESSION: CHRONIC CHANGES OF ATROPHY AND MICROVASCULAR ISCHEMIA. NO ACUTE PROCESS. EVIDENCE OF ACUTE STROKE: NO. Chest X-Ray 01/09/18 18:28 IMPRESSION: Worsening of the vascular congestion. Slight increase in the left effusion. Thoracic Spine X-Ray 01/09/18 18:35 IMPRESSION: Diffuse degenerative changes. No acute fracture. 01/09/18 23:19 72-year-old male with congestive heart failure, coronary artery disease, COPD, diabetes, with a pacemaker presents after a fall at home. Patient states that he walked out of his bathroom and fell onto a carpeted floor. He believes that he may have lost consciousness. He is currently complaining of headache, upper back pain. Patient denies any preceding chest pain, shortness of breath, palpitations. He does admit to preceding dizziness. he denies any current chest pain. Patient was recently discharged from the hospital on January 04, 2018 he was admitted for hyperkalemia, respiratory failure. Patient was seen by myself upon arrival. Vital signs were reviewed. Patient is afebrile, normotensive and not hypoxic. Patient does not appear toxic or dehydrated. They are in no acute distress. Previous medical records and nursing notes reviewed. Significant findings include a chest x-ray with worsening vascular congestion, a markedly elevated proBNP. CBC is without leukocytosis but does show anemia which is the patient's baseline. CT of the head and neck were obtained and showed no acute process. Thoracic spine x-rays were obtained and showed diffuse degenerative changes but no fracture. Patient was placed on CPAP and given IV Lasix. Patient will be admitted by the hospitalist for CHF exacerbation, worsening left pleural effusion. 01/09/18 23:19 - Vital Signs Vital signs: Temp Pulse Resp BP Pulse Ox 21 H 150/85 H 100 01/09/18 23:02 01/09/18 23:02 01/09/18 23:02 - Laboratory Result Diagrams: 01/09/18 20:08 01/09/18 20:08 Laboratory results interpreted by me: 01/09/18 01/09/18 01/09/18 20:08 20:08 20:08 RBC 3.11 L Hgb 8.9 L Hct 27.1 L RDW 16.8 H Carbon Dioxide 32 H Creatinine 1.29 H Est GFR (Non-Af Amer) 55 L Glucose 70 L ALT 20 L Creatine Kinase 38 L NT-Pro-B Natriuret Pep 5170 H Albumin 3.3 L - Diagnostic Test Radiology reviewed: Image reviewed, Reports reviewed - EKG Interpretation by Me Rate: Normal When compared to previous EKG there are: No significant change - Dual paced rhythm Discharge - Discharge Clinical Impression: Syncope and collapse, Lightheaded, Pleural effusion, left, Pulmonary vascular congestion, Obstructive sleep apnea CHF exacerbation Qualifiers: Heart failure type: unspecified Qualified Code(s): I50.9 - Heart failure, unspecified Anemia Qualifiers: Anemia type: unspecified type Qualified Code(s): D64.9 - Anemia, unspecified Condition: Fair Disposition: ADMITTED INPATIENT Admitting Provider: Hospitalist Unit Admitted: Telemetry
--- NOTE | 2018-01-09 19:18 | EKG REPORT ---
SEVERITY:- ABNORMAL ECG - ATRIAL-VENTRICULAR DUAL-PACED RHYTHM : Confirmed by: Farzana Still 09-Jan-2018 19:17:53
--- NOTE | 2018-01-09 19:46 | RADIOLOGY REPORT (SQ) ---
EXAM DESCRIPTION: CT HEAD WITHOUT COMPLETED DATE/TIME: 01/09/2018 7:30 pm REASON FOR STUDY: fall COMPARISON: 07/29/2017 TECHNIQUE: Axial images acquired through the brain without intravenous contrast. Images reviewed wi th bone, brain and subdural windows. Images stored on PACS. All CT scanners at this facility use dose modulation, iterative reconstruction, and/or weight based d osing when appropriate to reduce radiation dose to as low as reasonably achievable (ALARA). [facility]: Dose Right [facility]: CareDose [facility]: Dose Right [facility]: Teradose 4D [facility]: Smart [employer] RADIATION DOSE: CT Rad equipment meets quality standard of care and radiation dose reduction techniq ues were employed. CTDIvol: 48.5 mGy. DLP: 879 mGy-cm.mGy. LIMITATIONS: None. FINDINGS: VENTRICLES: Prominent. CEREBRUM: No masses. No hemorrhage. No midline shift. Areas of low density in the white matter mos t likely due to chronic micro-vascular ischemic change. No evidence for acute infarction. CEREBELLUM: No masses. No hemorrhage. No alteration of density. No evidence for acute infarction. EXTRAAXIAL SPACES: Age-related involutional change. No fluid collections. No masses. ORBITS AND GLOBE: No intra- or extraconal masses. Normal contour of globe without masses. CALVARIUM: No fracture. PARANASAL SINUSES: Extensive maxillary sinus disease right greater than left. SOFT TISSUES: No mass or hematoma. OTHER: No other significant finding. IMPRESSION: CHRONIC CHANGES OF ATROPHY AND MICROVASCULAR ISCHEMIA. NO ACUTE PROCESS. EVIDENCE OF ACUTE STROKE: NO. TECHNICAL DOCUMENTATION: JOB ID: [id number] Quality ID # [id number]: Final reports with documentation of one or more dose reduction techniques (e.g., Au tomated exposure control, adjustment of the mA and/or kV according to patient size, use of iterative reconstruction technique) 2010 [employer]- All Rights Reserved Reading location - IP/workstation name: [email or web address]
--- NOTE | 2018-01-09 19:47 | RADIOLOGY REPORT (SQ) ---
EXAM DESCRIPTION: CT CERVICAL SPINE WITHOUT COMPLETED DATE/TIME: 01/09/2018 7:30 pm REASON FOR STUDY: fall COMPARISON: None. TECHNIQUE: Axial images acquired through the cervical spine without intravenous contrast. Images re viewed with lung, soft tissue and bone windows. Reconstructed coronal and sagittal MPR images review ed. Images stored on PACS. All CT scanners at this facility use dose modulation, iterative reconstruction, and/or weight based d osing when appropriate to reduce radiation dose to as low as reasonably achievable (ALARA). [facility]: Dose Right [facility]: CareDose [facility]: Dose Right [facility]: Teradose 4D [facility]: Smart Technologies RADIATION DOSE: CT Rad equipment meets quality standard of care and radiation dose reduction techniq ues were employed. CTDIvol: 21.4 mGy. DLP: 544 mGy-cm. mGy. LIMITATIONS: None. FINDINGS: ALIGNMENT: Anatomic. MINERALIZATION: Normal. VERTEBRAL BODIES: No fractures or dislocation. DISCS: Multilevel disc space narrowing with osteophytes. FACETS, LATERAL MASSES, POSTERIOR ELEMENTS: Facet arthropathy. No fractures. No dislocation. No ac pablito findings. HARDWARE: None in the spine. VISUALIZED RIBS: No fractures. LUNG APICES AND SOFT TISSUES: Left pleural effusion. OTHER: No other significant finding. IMPRESSION: CHRONIC DEGENERATIVE CHANGES. NO ACUTE FINDINGS. Left pleural effusion. TECHNICAL DOCUMENTATION: JOB ID: [id number] Quality ID # [id number]: Final reports with documentation of one or more dose reduction techniques (e.g., Au tomated exposure control, adjustment of the mA and/or kV according to patient size, use of iterative reconstruction technique) 2010 [employer]- All Rights Reserved Reading location - IP/workstation name: [email or web address]
--- NOTE | 2018-01-09 20:00 | RADIOLOGY REPORT (SQ) ---
EXAM DESCRIPTION: CHEST 2 VIEWS COMPLETED DATE/TIME: 01/09/2018 7:47 pm REASON FOR STUDY: syncope COMPARISON: 12/30/2017 EXAM PARAMETERS: NUMBER OF VIEWS: two views TECHNIQUE: Digital Frontal and Lateral radiographic views of the chest acquired. RADIATION DOSE: NA LIMITATIONS: none FINDINGS: LUNGS AND PLEURA: Left pleural effusion. Possibly slightly larger. Right lung clear. MEDIASTINUM AND HILAR STRUCTURES: No masses or contour abnormalities. HEART AND VASCULAR STRUCTURES: Heart enlarged. Vascular congestion. Worse. BONES: No acute findings. HARDWARE: Extensive cardiac hardware unchanged. OTHER: No other significant finding. IMPRESSION: Worsening of the vascular congestion. Slight increase in the left effusion. COMMENT: None TECHNICAL DOCUMENTATION: JOB ID: [id number] [employer]- All Rights Reserved Reading location - IP/workstation name: [email or web address]
--- NOTE | 2018-01-09 20:01 | RADIOLOGY REPORT (SQ) ---
EXAM DESCRIPTION: T SPINE AP/LAT COMPLETED DATE/TIME: 01/09/2018 7:47 pm REASON FOR STUDY: fall COMPARISON: None. NUMBER OF VIEWS: Two views. TECHNIQUE: AP and lateral radiographic images acquired of the thoracic spine. LIMITATIONS: None. FINDINGS: MINERALIZATION: Normal. ALIGNMENT: Normal. No scoliosis. VERTEBRAE: No fracture or bone lesion. Maintained height, normal segmentation. DISCS: Diffuse degenerative changes. HARDWARE: None in the spine. MEDIASTINUM AND SOFT TISSUES: Heart enlarged. VISUALIZED LUNG DONALD: Clear. OTHER: No other significant finding. IMPRESSION: Diffuse degenerative changes. No acute fracture. TECHNICAL DOCUMENTATION: JOB ID: [id number] [employer]- All Rights Reserved Reading location - IP/workstation name: [email or web address]
[2018-01-09 20:24] LABS: ABSOLUTE EOSINOPHILS # (AUTO) 0.2 10^3/uL (0.0-0.6); ABSOLUTE LYMPHOCYTES (AUTO) 1.4 10^3/uL (0.5-4.7); ABSOLUTE MONOCYTES (AUTO) 0.4 10^3/uL (0.1-1.4); ABSOLUTE NEUT (AUTO) 2.7 10^3/uL (1.7-8.2); BASOPHILS % (AUTO) 0.8 % (0-2); EOSINOPHILS % (AUTO) 4.7 % (0-6); HEMATOCRIT 27.1 % (37.9-51.0); HEMOGLOBIN 8.9 g/dL (13.5-17.0); LYMPHOCYTES % (AUTO) 29.8 % (13-45); MEAN CORPUSCULAR HEMOGLOBIN 28.7 pg (27.0-33.4); MEAN CORPUSCULAR HGB CONC 32.9 g/dL (32.0-36.0); MEAN CORPUSCULAR VOLUME 87 fl (80-97); PLATELET COUNT 205 10^3/uL (150-450); RED BLOOD COUNT 3.11 10^6/uL (4.35-5.55); RED CELL DISTRIBUTION WIDTH 16.8 % (11.5-14.0); SEGMENTED NEUTROPHILS % (AUTO) 55.7 % (42-78); TOTAL CELLS COUNTED % (AUTO) 100 %; WHITE BLOOD COUNT 4.8 10^3/uL (4.0-10.5)
[2018-01-09 20:45] LABS: ALANINE AMINOTRANSFERASE 20 U/L (21-72); ALBUMIN 3.3 g/dL (3.5-5.0); ALKALINE PHOSPHATASE 78 U/L (38-126); ANION GAP 11 (5-19); ASPARTATE AMINO TRANSFERASE 25 U/L (17-59); BILIRUBIN,DIRECT 0.3 mg/dL (0.0-0.4); BILIRUBIN,TOTAL 0.7 mg/dL (0.2-1.3); BLOOD UREA NITROGEN 16 mg/dL (7-20); CALCIUM 8.7 mg/dL (8.4-10.2); CARBON DIOXIDE 32 mmol/L (22-30); CHLORIDE 101 mmol/L (98-107); CREATINE KINASE 38 U/L (55-170); GLUCOSE 70 mg/dL (75-110); SODIUM 144.1 mmol/L (137-145); TOTAL PROTEIN 7.2 g/dL (6.3-8.2)
[2018-01-09 20:57] LABS: CREATINE KINASE MB 0.56 ng/mL (<4.55); TROPONIN I 0.026 ng/mL
[2018-01-09] MEDS ORDERED: FUROSEMIDE INJ/PF 20 MG/2 ML SDV IV ONE (21:29)
[2018-01-09] MEDS ORDERED: ACETAMINOPHEN 325 MG TABLET PO PRN (23:47)
[2018-01-09] MEDS ORDERED: MAGNESIUM HYDROXIDE SUSP 30 ML UDCUP PO PRN (23:47)
[2018-01-09] MEDS ORDERED: PROMETHAZINE HCL INJ 25 MG/1 ML VIAL IV PRN (23:47)
[2018-01-10 02:22] LABS: ABSOLUTE EOSINOPHILS # (AUTO) 0.2 10^3/uL (0.0-0.6); ABSOLUTE LYMPHOCYTES (AUTO) 1.3 10^3/uL (0.5-4.7); ABSOLUTE MONOCYTES (AUTO) 0.4 10^3/uL (0.1-1.4); ABSOLUTE NEUT (AUTO) 2.5 10^3/uL (1.7-8.2); EOSINOPHILS % (AUTO) 4.8 % (0-6); HEMATOCRIT 29.1 % (37.9-51.0); HEMOGLOBIN 9.6 g/dL (13.5-17.0); LYMPHOCYTES % (AUTO) 29.3 % (13-45); MEAN CORPUSCULAR HEMOGLOBIN 28.8 pg (27.0-33.4); MEAN CORPUSCULAR VOLUME 87 fl (80-97); MONOCYTES % (AUTO) 9.3 % (3-13); PLATELET COUNT 180 10^3/uL (150-450); RED BLOOD COUNT 3.33 10^6/uL (4.35-5.55); RED CELL DISTRIBUTION WIDTH 16.4 % (11.5-14.0); SEGMENTED NEUTROPHILS % (AUTO) 55.6 % (42-78); TOTAL CELLS COUNTED % (AUTO) 100 %; WHITE BLOOD COUNT 4.5 10^3/uL (4.0-10.5)
--- NOTE | 2018-01-10 02:25 | PDOC H&P ---
History of Present Illness Admission Date/PCP: 01/09/18 21:49 MAURICE ORTIZ DO Patient complains of: Syncope History of Present Illness: DANIEL OLIVA is a 72 year old male who comes to the emergency department after a fall. The patient tells me that he was going from his bedroom to the bathroom and fell onto a carpeted floor, he does not remember if he hit his head , he does not remember what has happened. In the ED he states that he had a headache and upper back pain. Patient does not remember if before she is full he had any dizziness, lightheadedness or any neurological symptom. Denies shortness of breath, chest pain, abdominal pain, diarrhea, constipation, urinary symptoms, palpitations. Patient has been recently discharged from our facility on 710 With acute on chronic respiratory failure, high output cardiac failure, left pleural effusion status post thoracentesis, COPD exacerbation, acute renal failure. Patient tells me that she wears oxygen at home 2 L and CPAP at night, he was wearing his oxygen at the time of his fall. Workup was done in the emergency department and he was found with vascular congestion and a chest x-ray. His BNP has increased from 2800 to 5170. Patient is states he is compliant with his p.o. Lasix at home. Past Medical History Cardiac Medical History: Reports: Congestive Heart Failure, Coronary Artery Disease, Myocardial Infarction, Hypertension, Pulmonary Embolism Pulmonary Medical History: Reports: Chronic Obstructive Pulmonary Disease (COPD) Neurological Medical History: Denies: Seizures Endocrine Medical History: Reports: Diabetes Mellitus Type 2 - History of same, but only on medication for short time. Renal/ Medical History: Denies: End Stage Renal Disease GI Medical History: Denies: Crohn's Disease, Ulcerative Colitis Musculoskeltal Medical History: Reports: Arthritis Skin Medical History: Denies: Psoriasis Psychiatric Medical History: Reports: Depression Traumatic Medical History: Denies: Traumatic Brain Injury Hematology: Denies: Hemophilia, Sickle Cell Disease Past Surgical History Past Surgical History: Reports: Cardiac Catheterization, Coronary Artery Bypass Graft, Coronary Stent, Pacemaker - Initial device removed for infection; subsequent AICD implant., Tonsillectomy Social History Lives with: Family Smoking Status: Current Every Day Smoker Frequency of Alcohol Use: None Hx Recreational Drug Use: No Drugs: None Hx Prescription Drug Abuse: No - Advance Directive Resuscitation Status: Full Code Family History Family History: CAD, COPD Parental Family History Reviewed: Yes Children Family History Reviewed: Yes Sibling(s) Family History Reviewed.: Yes Medication/Allergy Home Medications: Amiodarone HCl [Pacerone] 200 mg PO DAILY 12/16/17 Aspirin [Ecotrin 81 mg EC Tablet] 81 mg PO DAILY 12/16/17 Atorvastatin Calcium [Lipitor 40 mg Tablet] 40 mg PO DAILY 12/16/17 Methocarbamol [Robaxin 750 mg Tablet] 750 mg PO Q6HP PRN 12/16/17 Multivitamin [Tab-A-Caroline (Multiple Vitamin) Tablet] 1 tab PO DAILY 12/16/17 Omeprazole 20 mg PO QAM 12/16/17 Oxycodone HCl/Acetaminophen [Endocet 10-325 mg Tablet] 1 tab PO Q6HP PRN Sertraline HCl [Zoloft 50 mg Tablet] 50 mg PO DAILY 12/16/17 Umeclidinium Brm/Vilanterol Tr [Anoro Ellipta 62.5-25 Mcg INH] 1 puff IH QAM Acetaminophen [Tylenol 325 mg Tablet] 650 mg PO Q4HP PRN tablet 01/03/18 Apixaban [Eliquis 5 mg Tablet] 5 mg PO BID tablet 01/03/18 Docusate Sodium [Colace 100 mg Capsule] 200 mg PO DAILY capsule 01/03/18 Furosemide [Lasix 40 mg Tablet] 40 mg PO DAILY tablet 01/03/18 Allergies/Adverse Reactions: No Known Allergies Allergy (Verified 08/05/17 14:09) Review of Systems Review of Systems: As outlined in the HPI, all others negative Physical Exam Vital Signs: Temp Pulse Resp BP Pulse Ox 97.9 F 60 20 139/69 H 100 01/10/18 00:55 01/10/18 00:55 01/10/18 00:55 01/10/18 00:55 01/10/18 00:55 Intake & Output 01/08/18 01/09/18 01/10/18 06:59 06:59 06:59 Weight 116.1 kg Additional comments: General appearance: Well-developed, well-nourished, alert and cooperative, and appears to be in no acute distress, is wearing CPAP Head: Normocephalic atraumatic, no bruises, bumps or excoriations Eyes: PEERL, EOMI, vision is grossly intact. Ears: External auditory canal and tympanic membranes clear, hearing decreased. Nose: No nasal discharge. Throat : Oral cavity and pharynx normal. No inflammation, swelling, exudate or lesions. Neck: Neck supple, nontender without lymphadenopathy, masses or thyromegaly. Cardiac: Normal S1 and S2. No S3, S4 or murmurs. Rhythm is regular. There is 2+ pitting peripheral edema, positive pallor. Extremities are warm and well perfused. Capillary refill is less than 2 seconds. No carotid bruits. Lungs: Clear to auscultation and percussion with basilar rales, no rhonchi, wheezing, bilateral diminished breath sounds. Not using accessory muscles. Abdomen: Positive bowel sounds. Soft. Nondistended, nontender. No guarding or rebound. No masses. No hepatosplenomegaly Extremities: No significant deformity or joint abnormality. No edema. Peripheral pulses intact. No varicosities. Neurological: Cranial nerves II through XII grossly intact. Strength and sensation symmetric and intact throughout. Reflexes 2+ throughout. Skin: Skin pale, normal texture and turgor with no lesions or eruptions, warm and dry. Psychiatric: The mental examination revealed the patient was oriented to person , place, and time. The patient was able to demonstrate good judgment on recent , without hallucinations, abnormal affect or abnormal behaviors. Results Laboratory Results: Laboratory review Remarkable for BNP 5170 Impressions: Cervical Spine CT 01/09/18 18:27 IMPRESSION: CHRONIC DEGENERATIVE CHANGES. NO ACUTE FINDINGS. Left pleural effusion. Head CT 01/09/18 18:27 IMPRESSION: CHRONIC CHANGES OF ATROPHY AND MICROVASCULAR ISCHEMIA. NO ACUTE PROCESS. EVIDENCE OF ACUTE STROKE: NO. Chest X-Ray 01/09/18 18:28 IMPRESSION: Worsening of the vascular congestion. Slight increase in the left effusion. Thoracic Spine X-Ray 01/09/18 18:35 IMPRESSION: Diffuse degenerative changes. No acute fracture. Assessment & Plan - Diagnosis (1) CHF exacerbation Qualifiers: Heart failure type: combined systolic and diastolic Qualified Code(s): I50.43 - Acute on chronic combined systolic (congestive) and diastolic ( congestive) heart failure Is this a current diagnosis for this admission?: Yes Plan: In the prior admission the patient has history of acute on chronic systolic and diastolic congestive heart failure, when echocardiogram was done and it came out with a high output cardiac failure with EF of 65% with no diastolic dysfunction, probably echocardiogram has to be repeated. At this point chest x- ray is positive for vascular congestion and increased left pleural effusion, BNP is elevated. Will place the patient on Lasix 40 mg twice daily. CHF core measures. Daily weights. We will continue with oxygen protocol via nasal cannula. Strict input and output. Fluid restriction 1500 daily. (2) Syncope and collapse Is this a current diagnosis for this admission?: Yes Plan: Unclear etiology deformity, probably hypoxia secondary to pulmonary vascular congestion. At this point patient comfortable on CPAP. (3) Obstructive sleep apnea Is this a current diagnosis for this admission?: No Plan: Continue with CPAP, currently 15 cm of water (4) Pleural effusion, left Is this a current diagnosis for this admission?: Yes Plan: Patient had a left thoracentesis on 12/29 with 1 L fluid removed. A slightly increased from prior, likely secondary to his CHF exacerbation. If no improvement with IV Lasix, probably will have to try again a thoracentesis. (5) Chronic respiratory failure Is this a current diagnosis for this admission?: No Plan: Patient was oxygen 2 L at home, 24 hours. Continue with oxygen protocol during hospitalization. (6) Pulmonary emboli Is this a current diagnosis for this admission?: No Plan: Continue with Eliquis (8) Atrial flutter by electrocardiogram Is this a current diagnosis for this admission?: No Plan: Continue with amiodarone and Eliquis - Time Time Spent: 30 to 50 Minutes Medications reviewed and adjusted accordingly: Yes Anticipated discharge: Home Within: within 48 hours - Inpatient Certification Based on my medical assessment, after consideration of the patient's comorbidities, presenting symptoms, or acuity I expect that the services needed warrant INPATIENT care.: Yes I certify that my determination is in accordance with my understanding of Medicare's requirements for reasonable and necessary INPATIENT services [42 CFR 412.3e].: Yes Medical Necessity: Significant Comorbidiites Make Outpatient Treatment Too Risky Post Hospital Care: D/C Rn Cardiac Rehab Documentation
[2018-01-10 03:05] LABS: ANION GAP 12 (5-19); BLOOD UREA NITROGEN 17 mg/dL (7-20); CALCIUM 8.9 mg/dL (8.4-10.2); CARBON DIOXIDE 31 mmol/L (22-30); CHLORIDE 104 mmol/L (98-107); GLUCOSE 74 mg/dL (75-110); POTASSIUM 3.9 mmol/L (3.6-5.0); SODIUM 147.1 mmol/L (137-145)
[2018-01-10 03:07] LABS: APPEARANCE,URINE CLEAR; BILIRUBIN,URINE NEGATIVE (NEGATIVE); COLOR,URINE YELLOW; GLUCOSE, URINE NEGATIVE (NEGATIVE); KETONES,URINE NEGATIVE (NEGATIVE); LEUKOCYTE ESTERASE,URINE NEGATIVE (NEGATIVE); NITRITE,URINE NEGATIVE (NEGATIVE); PROTEIN,URINE NEGATIVE (NEGATIVE); URINE SPECIFIC GRAVITY 1.009
[2018-01-10] MEDS ORDERED: ACETAMINOPHEN 325 MG TABLET PO PRN (06:23)
[2018-01-10] MEDS ORDERED: METHOCARBAMOL 750 MG TABLET PO PRN (06:23)
[2018-01-10] MEDS ORDERED: OXYCODONE-ACETAMINOPHEN 5-325 MG TABLET PO PRN (06:45)
[2018-01-10] MEDS ORDERED: (PENDING PHARMACY ID) (Umeclidinium Brm/Vilanterol Tr [Anoro Ellipta 62.5-25 Mcg Inh] 1 PU IH SCH (08:00)
[2018-01-10] MEDS: LANSOPRAZOLE 15 MG TAB.RAP.DR PO SCH (08:20)
--- NOTE | 2018-01-10 08:57 | PDOC PROGRESS REPORT ---
<HANDY DONOHUE - Last Filed: 01/10/18 08:57> Subjective Progress Note for:: 01/10/18 Subjective:: Patient is seen resting in bed. He is awake, alert and oriented x 3. He is presently on oxygen at 4l/min via nasal cannula. He denies any shortness of breath, dyspnea or chest discomfort at rest. He denies any cough. He denies any nausea, vomiting or abdominal pain. He denies any diarrhea. He is having pain in the middle of his back. He denies any other discomforts. Remaining review of systems are negative. Reason For Visit: HEART FAILURE Physical Exam Vital Signs: Temp Pulse Resp BP Pulse Ox 97.9 F 66 24 H 170/93 H 94 01/10/18 07:37 01/10/18 07:37 01/10/18 07:37 01/10/18 07:37 01/10/18 07:37 Intake & Output 01/09/18 01/10/18 01/11/18 06:59 06:59 06:59 Intake Total 30 Output Total 450 Balance -420 Weight 115.7 kg General appearance: PRESENT: no acute distress, obese, well-developed, well- nourished Head exam: PRESENT: atraumatic, normocephalic Eye exam: PRESENT: conjunctiva pink, EOMI, PERRLA. ABSENT: scleral icterus Ear exam: PRESENT: normal external ear exam Mouth exam: PRESENT: moist, tongue midline Teeth exam: PRESENT: poor dentation Neck exam: ABSENT: carotid bruit, JVD, lymphadenopathy, thyromegaly Respiratory exam: PRESENT: crackles - crackles at right base, diminished on the left, decreased breath sounds, unlabored Cardiovascular exam: PRESENT: RRR. ABSENT: diastolic murmur, rubs, systolic murmur Pulses: PRESENT: normal carotid pulses, normal radial pulses Vascular exam: PRESENT: normal capillary refill GI/Abdominal exam: PRESENT: normal bowel sounds, soft. ABSENT: distended, guarding, mass, organolmegaly, rebound, tenderness Rectal exam: PRESENT: deferred Extremities exam: PRESENT: full ROM, +1 edema - bilateral lower extremities. ABSENT: calf tenderness, clubbing, pedal edema Musculoskeletal exam: PRESENT: ambulatory, tenderness - thoracic spine, no bruising or deformities noted Neurological exam: PRESENT: alert, awake, oriented to person, oriented to place , oriented to time, oriented to situation, CN II-XII grossly intact. ABSENT: motor sensory deficit Psychiatric exam: PRESENT: appropriate affect, normal mood. ABSENT: homicidal ideation, suicidal ideation Skin exam: PRESENT: dry, intact, warm. ABSENT: cyanosis, rash Results Laboratory Results: 01/10/18 02:05 01/10/18 02:05 01/10/18 01/10/18 01/10/18 02:05 02:05 02:40 WBC 4.5 RBC 3.33 L Hgb 9.6 L Hct 29.1 L MCV 87 MCH 28.8 MCHC 33.0 RDW 16.4 H Plt Count 180 Seg Neutrophils % 55.6 Lymphocytes % 29.3 Monocytes % 9.3 Eosinophils % 4.8 Basophils % 1.0 Absolute Neutrophils 2.5 Absolute Lymphocytes 1.3 Absolute Monocytes 0.4 Absolute Eosinophils 0.2 Absolute Basophils 0.0 Sodium 147.1 H Potassium 3.9 Chloride 104 Carbon Dioxide 31 H Anion Gap 12 BUN 17 Creatinine 1.21 Est GFR ( Amer) > 60 Est GFR (Non-Af Amer) 59 L Glucose 74 L Calcium 8.9 Magnesium 2.0 Urine Color YELLOW Urine Appearance CLEAR Urine pH 7.0 Ur Specific Central 1.009 Urine Protein NEGATIVE Urine Glucose (UA) NEGATIVE Urine Ketones NEGATIVE Urine Blood SMALL H Urine Nitrite NEGATIVE Ur Leukocyte Esterase NEGATIVE Urine WBC (Auto) 1 Urine RBC (Auto) 5 01/10/18 02:05 Troponin I 0.028 Impressions: Cervical Spine CT 01/09/18 18:27 IMPRESSION: CHRONIC DEGENERATIVE CHANGES. NO ACUTE FINDINGS. Left pleural effusion. Head CT 01/09/18 18:27 IMPRESSION: CHRONIC CHANGES OF ATROPHY AND MICROVASCULAR ISCHEMIA. NO ACUTE PROCESS. EVIDENCE OF ACUTE STROKE: NO. Chest X-Ray 01/09/18 18:28 IMPRESSION: Worsening of the vascular congestion. Slight increase in the left effusion. Thoracic Spine X-Ray 01/09/18 18:35 IMPRESSION: Diffuse degenerative changes. No acute fracture. Assessment & Plan - Diagnosis (1) Acute on chronic respiratory failure QualifierTitle: Respiratory failure complication: hypoxia Qualified Code( s): J96.21 - Acute and chronic respiratory failure with hypoxia Is this a current diagnosis for this admission?: Yes Plan: Initially requiring BIPAP at 100% to achieve oxygen saturation over 90%. Diuresed well with IV lasix. Now on oxygen at 4l/min. Denies shortness of breath or dyspnea (2) Acute on chronic systolic congestive heart failure, NYHA class 3 Is this a current diagnosis for this admission?: Yes Plan: Chest xray showed increase pulmonary vascular congestion and with NTBNP at 5600. Continue with Lasix 40 mg IV BID diuresis. Recheck CXR in the am (3) Pleural effusion, left Is this a current diagnosis for this admission?: Yes Plan: Patient underwent thoracentesis on 12/29 with 1 liter of fluid removed. He has appointment with CT surgery on 01/16 for possible pleurodesis. He may need another thoracentesis prior to this. Will recheck CXR in am. Hold eliquis this evening (4) Syncope and collapse Is this a current diagnosis for this admission?: Yes (5) Anticoagulated Is this a current diagnosis for this admission?: Yes Plan: Patient is on eliquis. Will need to hold for possible thoracentesis (6) Atrial flutter by electrocardiogram Is this a current diagnosis for this admission?: Yes Plan: He has a history of paroxymal atrial fibrillation/flutter, his in sinus rhythm presently (7) COPD (chronic obstructive pulmonary disease) QualifierTitle: COPD type: unspecified COPD Qualified Code(s): J44.9 - Chronic obstructive pulmonary disease, unspecified Is this a current diagnosis for this admission?: Yes Plan: Continue home inhalers. He wears oxygen at 2l/min continously and CPAP at HS - Time Time Spent with patient: 25-34 minutes Total Critical Time (Minutes): 25 Medications reviewed and adjusted accordingly: Yes Anticipated discharge: Home with Homehealth - Inpatient Certification Based on my medical assessment, after consideration of the patient's comorbidities, presenting symptoms, or acuity I expect that the services needed warrant INPATIENT care.: Yes I certify that my determination is in accordance with my understanding of Medicare's requirements for reasonable and necessary INPATIENT services [42 CFR 412.3e].: Yes Medical Necessity: Significant Comorbidiites Make Outpatient Treatment Too Risky , Need Close Monitoring Due to Risk of Patient Decompensation <RHONDA OJEDA - Last Filed: 01/10/18 18:05> Subjective Reason For Visit: HEART FAILURE Physical Exam Vital Signs: Temp Pulse Resp BP Pulse Ox 97.7 F 60 22 H 128/76 H 93 07/17/18 16:23 01/10/18 16:23 01/10/18 16:23 01/10/18 16:23 01/10/18 16:23 Intake & Output 01/09/18 01/10/18 01/11/18 06:59 06:59 06:59 Intake Total 30 472 Output Total 450 110 Balance -420 362 Weight 115.7 kg Results Laboratory Results: 01/10/18 02:05 01/10/18 02:05 01/10/18 01/10/18 01/10/18 02:05 02:05 02:40 WBC 4.5 RBC 3.33 L Hgb 9.6 L Hct 29.1 L MCV 87 MCH 28.8 MCHC 33.0 RDW 16.4 H Plt Count 180 Seg Neutrophils % 55.6 Lymphocytes % 29.3 Monocytes % 9.3 Eosinophils % 4.8 Basophils % 1.0 Absolute Neutrophils 2.5 Absolute Lymphocytes 1.3 Absolute Monocytes 0.4 Absolute Eosinophils 0.2 Absolute Basophils 0.0 Sodium 147.1 H Potassium 3.9 Chloride 104 Carbon Dioxide 31 H Anion Gap 12 BUN 17 Creatinine 1.21 Est GFR ( Amer) > 60 Est GFR (Non-Af Amer) 59 L Glucose 74 L Calcium 8.9 Magnesium 2.0 Urine Color YELLOW Urine Appearance CLEAR Urine pH 7.0 Ur Specific Central 1.009 Urine Protein NEGATIVE Urine Glucose (UA) NEGATIVE Urine Ketones NEGATIVE Urine Blood SMALL H Urine Nitrite NEGATIVE Ur Leukocyte Esterase NEGATIVE Urine WBC (Auto) 1 Urine RBC (Auto) 5 01/10/18 01/10/18 01/10/18 02:05 08:01 14:40 Troponin I 0.028 0.028 0.028 Impressions: Cervical Spine CT 01/09/18 18:27 IMPRESSION: CHRONIC DEGENERATIVE CHANGES. NO ACUTE FINDINGS. Left pleural effusion. Head CT 01/09/18 18:27 IMPRESSION: CHRONIC CHANGES OF ATROPHY AND MICROVASCULAR ISCHEMIA. NO ACUTE PROCESS. EVIDENCE OF ACUTE STROKE: NO. Chest X-Ray 01/09/18 18:28 IMPRESSION: Worsening of the vascular congestion. Slight increase in the left effusion. Thoracic Spine X-Ray 01/09/18 18:35 IMPRESSION: Diffuse degenerative changes. No acute fracture. Provider Note Provider Note: I have discussed the patient in detail with BLAIR Donohue. I am in agreement with her evaluation and plan.
[2018-01-10] MEDS ORDERED: DOCUSATE SODIUM 100 MG CAPSULE PO SCH (10:00)
[2018-01-10] MEDS: AMIODARONE HCL 200 MG TABLET PO SCH (10:00)
[2018-01-10] MEDS: ASPIRIN 81 MG TABLET, ENT COATED PO SCH (10:01)
[2018-01-10] MEDS: ATORVASTATIN CALCIUM 40 MG TABLET PO SCH (10:01)
[2018-01-10] MEDS: APIXABAN 5 MG TABLET PO SCH (10:01)
[2018-01-10] MEDS: SERTRALINE HCL 50 MG TABLET PO SCH (10:02)
[2018-01-10] MEDS: POTASSIUM CHLORIDE 10 MEQ CAPSULE.ER PO SCH ×2 (10:02→22:10)
[2018-01-10] MEDS: OXYCODONE HCL IR 5 MG TABLET PO PRN ×3 (10:02→23:11)
[2018-01-10] MEDS: OXYCODONE-ACETAMINOPHEN 5-325 MG TABLET PO PRN ×3 (10:03→23:12)
[2018-01-10] MEDS: DOCUSATE SODIUM 100 MG CAPSULE PO SCH (10:04)
[2018-01-10] MEDS: FUROSEMIDE INJ/PF 40 MG/4 ML SDV IV SCH ×2 (10:04→22:10)
[2018-01-11 05:15] LABS: ANION GAP 16 (5-19); BLOOD UREA NITROGEN 23 mg/dL (7-20); CALCIUM 8.5 mg/dL (8.4-10.2); CARBON DIOXIDE 30 mmol/L (22-30); CHLORIDE 100 mmol/L (98-107); GLUCOSE 103 mg/dL (75-110); POTASSIUM 4.3 mmol/L (3.6-5.0); SODIUM 145.7 mmol/L (137-145)
[2018-01-11] MEDS: LANSOPRAZOLE 15 MG TAB.RAP.DR PO SCH (08:29)
[2018-01-11] MEDS: FUROSEMIDE INJ/PF 40 MG/4 ML SDV IV SCH ×2 (10:41→21:27)
--- NOTE | 2018-01-11 11:02 | PDOC PROGRESS REPORT ---
Subjective Progress Note for:: 01/11/18 Subjective:: The patient is a morbidly obese 72-year-old male who presented to the emergency room initially after sustaining a fall at home. He was recently discharged from this facility on January 03, 2018 where he was treated for acute on chronic respiratory failure and high output cardiac failure. He has a known left pleural effusion status post thoracentesis during that hospitalization. He was also treated for a COPD exacerbation and acute renal failure. The patient is chronically oxygen dependent requiring 2 L at baseline at home. He uses CPAP at night. Workup in the emergency room revealed increased vascular congestion. The patient was admitted to the hospital and it was felt that he was having another congestive heart failure exacerbation and he was placed on IV Lasix twice daily. Today when I saw the patient he is still requiring BiPAP. He states that he is feeling better than when he came into the hospital. He is awake alert and oriented 3. It is difficult to communicate due to his use of BiPAP. He is able to tell me that his shortness of breath is stable on the BiPAP. No chest pain or heart palpitations. No nausea vomiting or diarrhea. No urinary complaints. Reason For Visit: HEART FAILURE Physical Exam Vital Signs: Temp Pulse Resp BP Pulse Ox 97.4 F 59 L 15 102/71 98 01/11/18 07:27 01/11/18 07:27 01/11/18 07:27 01/11/18 07:27 01/11/18 07:27 Intake & Output 01/10/18 01/11/18 01/12/18 06:59 06:59 06:59 Intake Total 30 924 Output Total 450 640 Balance -420 284 Weight 115.7 kg 116.9 kg General appearance: PRESENT: morbidly obese, other - The patient is currently using BiPAP. Head exam: PRESENT: atraumatic, normocephalic Mouth exam: PRESENT: other - I could not examine his oral mucosa due to the BiPAP Respiratory exam: PRESENT: crackles - He has some fine crackles in the lower bases bilaterally, rales. ABSENT: rhonchi, wheezes Cardiovascular exam: PRESENT: RRR. ABSENT: diastolic murmur, rubs, systolic murmur GI/Abdominal exam: PRESENT: other - Morbidly obese. Soft. Nontender to palpation. Distant bowel sounds Rectal exam: PRESENT: deferred Extremities exam: PRESENT: full ROM, other. ABSENT: calf tenderness, clubbing, pedal edema Neurological exam: PRESENT: alert, awake, oriented to person, oriented to place , oriented to time, oriented to situation, CN II-XII grossly intact. ABSENT: motor sensory deficit Psychiatric exam: PRESENT: appropriate affect, normal mood. ABSENT: homicidal ideation, suicidal ideation Skin exam: PRESENT: dry, intact, warm, other - He has venous stasis changes to both of his lower extremities bilaterally with some mild pitting edema. ABSENT : cyanosis, rash Results Laboratory Results: 01/10/18 02:05 01/11/18 03:56 01/11/18 03:56 Sodium 145.7 H Potassium 4.3 Chloride 100 Carbon Dioxide 30 Anion Gap 16 BUN 23 H Creatinine 1.41 H Est GFR ( Amer) > 60 Est GFR (Non-Af Amer) 49 L Glucose 103 Calcium 8.5 Magnesium 2.0 01/10/18 01/10/18 01/10/18 02:05 08:01 14:40 Troponin I 0.028 0.028 0.028 Impressions: Cervical Spine CT 01/09/18 18:27 IMPRESSION: CHRONIC DEGENERATIVE CHANGES. NO ACUTE FINDINGS. Left pleural effusion. Head CT 01/09/18 18:27 IMPRESSION: CHRONIC CHANGES OF ATROPHY AND MICROVASCULAR ISCHEMIA. NO ACUTE PROCESS. EVIDENCE OF ACUTE STROKE: NO. Chest X-Ray 01/09/18 18:28 IMPRESSION: Worsening of the vascular congestion. Slight increase in the left effusion. Thoracic Spine X-Ray 01/09/18 18:35 IMPRESSION: Diffuse degenerative changes. No acute fracture. Assessment & Plan - Diagnosis (1) Acute and chronic respiratory failure Qualifiers: Respiratory failure complication: hypoxia Qualified Code(s): J96.21 - Acute and chronic respiratory failure with hypoxia Is this a current diagnosis for this admission?: Yes Plan: Secondary to pleural effusion and congestive heart failure exacerbation. I am going to get a chest CT for further evaluation to make sure that we are not missing a pneumonia or anything that could be contributing to his respiratory failure. Also we could further evaluate his pleural effusion. In the meantime he will continue BiPAP support. Respiratory is following and hopefully we can get him weaned off today. (2) Acute on chronic diastolic (congestive) heart failure Is this a current diagnosis for this admission?: Yes Plan: This was previously documented as systolic congestive heart failure however reviewing his echocardiogram that was obtained in November 2017 he had a normal ejection fraction of 65%. He does have mild pulmonary hypertension. We will continue aggressive IV diuresis for now. I am going to obtain a chest CT for further evaluation. (3) Pleural effusion, left Is this a current diagnosis for this admission?: Yes Plan: I am going to get a chest CT for further evaluation. He may require thoracentesis. He does have an appointment with CT surgery at the end of this month for consideration of pleurodesis. (4) Syncope Is this a current diagnosis for this admission?: Yes Plan: Possibly due to his respiratory status (5) Atrial flutter Is this a current diagnosis for this admission?: Yes Plan: Currently he is in a sinus rhythm. His Eliquis is on hold in the event that he needs thoracentesis. (6) Chronic anticoagulation Is this a current diagnosis for this admission?: Yes Plan: Currently on hold (7) COPD (chronic obstructive pulmonary disease) Is this a current diagnosis for this admission?: Yes Plan: No evidence of exacerbation at this point. (8) Obesity (BMI 30-39.9) Is this a current diagnosis for this admission?: Yes Plan: Certainly his weight contributes to his overall respiratory status. (9) Opiate dependence, continuous Is this a current diagnosis for this admission?: Yes Plan: Continue home regimen. No complaints of increased pain (10) Anemia Qualifiers: Qualified Code(s): D64.9 - Anemia, unspecified Is this a current diagnosis for this admission?: Yes Plan: He has a chronic anemia consistent with chronic disease (11) Hypernatremia Is this a current diagnosis for this admission?: Yes Plan: Improving (12) Full code status Is this a current diagnosis for this admission?: Yes - Time Time Spent with patient: 25-34 minutes - Inpatient Certification Medical Necessity: Significant Comorbidiites Make Outpatient Treatment Too Risky , Need Close Monitoring Due to Risk of Patient Decompensation, Need For Continuous Telemetry Monitoring, Risk of Complication if Not Cared For in Hospital, Other - Inpatient hospitalization remains necessary. The patient has acute respiratory failure on BiPAP at this time. The patient is being aggressively diuresed with IV Lasix. He has an abnormal chest x-ray and worsening pleural effusion. He may require thoracentesis. Timing of disposition will be determined by his clinical course
[2018-01-11] MEDS: AMIODARONE HCL 200 MG TABLET PO SCH (12:30)
[2018-01-11] MEDS: POTASSIUM CHLORIDE 10 MEQ CAPSULE.ER PO SCH ×2 (12:30→21:27)
[2018-01-11] MEDS: ASPIRIN 81 MG TABLET, ENT COATED PO SCH (12:30)
[2018-01-11] MEDS: ATORVASTATIN CALCIUM 40 MG TABLET PO SCH (12:30)
[2018-01-11] MEDS: DOCUSATE SODIUM 100 MG CAPSULE PO SCH (12:30)
[2018-01-11] MEDS: SERTRALINE HCL 50 MG TABLET PO SCH (12:30)
[2018-01-11] MEDS: OXYCODONE-ACETAMINOPHEN 5-325 MG TABLET PO PRN ×2 (14:42→20:57)
[2018-01-11] MEDS: OXYCODONE HCL IR 5 MG TABLET PO PRN ×2 (14:42→20:57)
--- NOTE | 2018-01-11 15:11 | RADIOLOGY REPORT (SQ) ---
EXAM DESCRIPTION: CHEST 2 VIEWS COMPLETED DATE/TIME: 01/11/2018 2:59 pm REASON FOR STUDY: Shortness of breath COMPARISON: CT chest 08/05/2017 Thoracentesis 12/29/2017 Plain films 12/16/2017, 12/26/2017, 12/30/2017, 01/09/2018 EXAM PARAMETERS: NUMBER OF VIEWS: two views TECHNIQUE: Digital Frontal and Lateral radiographic views of the chest acquired. RADIATION DOSE: NA LIMITATIONS: none FINDINGS: LUNGS AND PLEURA: Trace fluid in the right lateral and posterior costophrenic sulcus uncha nged from 01/09/2018. Right lung grossly clear. On the left side, opacification of the lower half hemithorax is present likely due to a combination o f basilar consolidation and left pleural fluid. Fusion is less prominent than on 01/09/2018 and 018. No pneumothorax MEDIASTINUM AND HILAR STRUCTURES: No masses or contour abnormalities. HEART AND VASCULAR STRUCTURES: Stable marked cardiomegaly with right-sided dual lead pacemaker/defibr illator. Old CABG BONES: No acute findings. HARDWARE: None in the chest. OTHER: No other significant finding. IMPRESSION: Trace right pleural effusion, suspect small left pleural effusion. Left effusion is sma ller than on chest films 01/09/2018 and 12/26/2017 Left basilar consolidation atelectasis versus pneumonia. Cardiomegaly with pacemaker/ defibrillator. Old CABG. TECHNICAL DOCUMENTATION: JOB ID: [id number] [employer]- All Rights Reserved Reading location - IP/workstation name: [facility]
--- NOTE | 2018-01-11 15:21 | RADIOLOGY REPORT (SQ) ---
EXAM DESCRIPTION: CT CHEST WITHOUT COMPLETED DATE/TIME: 01/11/2018 3:03 pm REASON FOR STUDY: evaluate pleural effusion COMPARISON: CT chest 02/28/2011, 08/09/2016, 08/10/2016, 08/05/2017 TECHNIQUE: CT scan performed of the chest without intravenous contrast. Images reviewed with lung, soft tissue and bone windows. Reconstructed coronal and sagittal MPR images reviewed. All images st ored on PACS. All CT scanners at this facility use dose modulation, iterative reconstruction, and/or weight based d osing when appropriate to reduce radiation dose to as low as reasonably achievable (ALARA). [facility]: Dose Right [facility]: CareDose [facility]: Dose Right [facility]: Teradose 4D [facility]: [employer] RADIATION DOSE: CT Rad equipment meets quality standard of care and radiation dose reduction techniq ues were employed. CTDIvol: 18.2 mGy. DLP: 733 mGy-cm. mGy. LIMITATIONS: No technical limitations. FINDINGS: LUNGS AND PLEURA: Moderate left subpulmonic effusion between the left hemidiaphragm and le ft lower lobe. There is trace right pleural effusion in the posterior costophrenic sulcus there is There are thickened interlobular septa from mild interstitial edema. Dense consolidation and collapse left lower lobe HILAR AND MEDIASTINAL STRUCTURES: No identified masses or abnormal nodes. No obvious aneurysm. HEART AND VASCULAR STRUCTURES: Marked cardiomegaly. Pacemaker. Old sternotomy for CABG, heavily michelle cified [place] coronary arteries UPPER ABDOMEN: No significant findings. Limited exam. THYROID AND OTHER SOFT TISSUES: No masses. No adenopathy. BONES: No significant finding. HARDWARE: Left-sided pacemaker/defibrillator OTHER: Results discussed with Jesika Granados IMPRESSION: Moderate left subpulmonic effusion between the left hemidiaphragm and left lower lobe. Consolidation and collapse left lower lobe. Stable cardiomegaly, stable trace right pleural effusion Mild thickened interlobular septa likely related to mild interstitial edema TECHNICAL DOCUMENTATION: JOB ID: [id number] Quality ID # [id number]: Final reports with documentation of one or more dose reduction techniques (e.g., Au tomated exposure control, adjustment of the mA and/or kV according to patient size, use of iterative reconstruction technique) 2010 [email or web address]- All Rights Reserved Reading location - IP/workstation name: [facility]
[2018-01-11 19:18] LABS: INTERNATIONAL RATION (INR) 1.12
[2018-01-11 19:19] LABS: PARTIAL THROMBOPLASTIN TIME 29.8 SEC (23.5-35.8)
[2018-01-12] MEDS: OXYCODONE HCL IR 5 MG TABLET PO PRN ×3 (04:58→18:18)
[2018-01-12] MEDS: OXYCODONE-ACETAMINOPHEN 5-325 MG TABLET PO PRN ×3 (04:58→18:18)
[2018-01-12] MEDS: AMIODARONE HCL 200 MG TABLET PO SCH (09:59)
[2018-01-12] MEDS: APIXABAN 5 MG TABLET PO SCH ×2 (10:00→15:40)
[2018-01-12] MEDS: POTASSIUM CHLORIDE 10 MEQ CAPSULE.ER PO SCH ×2 (10:00→21:22)
[2018-01-12] MEDS: SERTRALINE HCL 50 MG TABLET PO SCH (10:00)
[2018-01-12] MEDS: ASPIRIN 81 MG TABLET, ENT COATED PO SCH (10:00)
[2018-01-12] MEDS: ATORVASTATIN CALCIUM 40 MG TABLET PO SCH (10:01)
[2018-01-12] MEDS: FUROSEMIDE INJ/PF 40 MG/4 ML SDV IV SCH ×2 (10:01→21:22)
[2018-01-12] MEDS: DOCUSATE SODIUM 100 MG CAPSULE PO SCH (10:10)
[2018-01-12] MEDS: LANSOPRAZOLE 15 MG TAB.RAP.DR PO SCH (10:10)
[2018-01-12 11:42] LABS: ABSOLUTE EOSINOPHILS # (AUTO) 0.3 10^3/uL (0.0-0.6); ABSOLUTE LYMPHOCYTES (AUTO) 1.4 10^3/uL (0.5-4.7); ABSOLUTE MONOCYTES (AUTO) 0.6 10^3/uL (0.1-1.4); ABSOLUTE NEUT (AUTO) 3.2 10^3/uL (1.7-8.2); BASOPHILS % (AUTO) 0.8 % (0-2); EOSINOPHILS % (AUTO) 5.9 % (0-6); HEMATOCRIT 27.7 % (37.9-51.0); HEMOGLOBIN 8.9 g/dL (13.5-17.0); LYMPHOCYTES % (AUTO) 25.2 % (13-45); MEAN CORPUSCULAR HEMOGLOBIN 28.9 pg (27.0-33.4); MEAN CORPUSCULAR HGB CONC 32.2 g/dL (32.0-36.0); MEAN CORPUSCULAR VOLUME 90 fl (80-97); MONOCYTES % (AUTO) 10.2 % (3-13); PLATELET COUNT 178 10^3/uL (150-450); RED BLOOD COUNT 3.09 10^6/uL (4.35-5.55); RED CELL DISTRIBUTION WIDTH 16.1 % (11.5-14.0); SEGMENTED NEUTROPHILS % (AUTO) 57.9 % (42-78); TOTAL CELLS COUNTED % (AUTO) 100 %; WHITE BLOOD COUNT 5.6 10^3/uL (4.0-10.5)
[2018-01-12 11:59] LABS: ANION GAP 10 (5-19); BLOOD UREA NITROGEN 22 mg/dL (7-20); CALCIUM 8.5 mg/dL (8.4-10.2); CARBON DIOXIDE 36 mmol/L (22-30); CHLORIDE 98 mmol/L (98-107); GLUCOSE 85 mg/dL (75-110); POTASSIUM 4.6 mmol/L (3.6-5.0); SODIUM 143.6 mmol/L (137-145)
--- NOTE | 2018-01-12 12:01 | PDOC PROGRESS REPORT ---
Subjective Progress Note for:: 01/12/18 Subjective:: The patient is a morbidly obese 72-year-old male who presented to the emergency room initially after sustaining a fall at home. He was recently discharged from this facility on January 03, 2018 where he was treated for acute on chronic respiratory failure and high output cardiac failure. He has a known left pleural effusion status post thoracentesis during that hospitalization. He was also treated for a COPD exacerbation and acute renal failure. The patient is chronically oxygen dependent requiring 2 L at baseline at home. He uses CPAP at night. Workup in the emergency room revealed increased vascular congestion. The patient was admitted to the hospital and it was felt that he was having another congestive heart failure exacerbation and he was placed on IV Lasix twice daily. Initially the plan was to perform a thoracentesis and place a chest tube today. I spoke to the radiologist Dr. Aguilar this morning who wanted to wait as she is concerned he may develop trapped lung syndrome. She recommended getting cardiology involved to maximize his cardiac status. Due to this recommendation I have consulted cardiology today. When I saw the patient this morning he is resting comfortably in the bed. He has been weaned off of BiPAP at this point. His son is at the bedside. The patient lives at home with his son. Unfortunately his son does not have a taxi driver supervisor's license and does not drive. He did have a CABG performed at [facility] in September of this year but has missed his follow-up appointments due to transportation issues. He was quite concerned that he is on a fluid restriction. I spent quite some time discussing and educating the patient regarding the need for a fluid restriction and a low sodium diet. He is agreeable to talking to the clinical dietitian and they will be consulted today. Overall he states that he is feeling better. His shortness of breath is improving. His lower extremity edema is improving as well. He denies fever or shaking chills. No chest pain. He does not have a cough. No nausea vomiting or diarrhea. No dysuria, frequency or hematuria Reason For Visit: HEART FAILURE Physical Exam Vital Signs: Temp Pulse Resp BP Pulse Ox 98.1 F 60 16 105/42 L 96 01/12/18 04:09 01/12/18 07:00 01/12/18 04:09 01/12/18 04:09 01/12/18 08:00 Intake & Output 01/11/18 01/12/18 01/13/18 06:59 06:59 06:59 Intake Total 924 722 Output Total 734 1030 Balance 284 -2558 Weight 116.9 kg 115.9 kg General appearance: PRESENT: obese, well-developed, well-nourished Head exam: PRESENT: atraumatic, normocephalic Mouth exam: PRESENT: moist, tongue midline Respiratory exam: PRESENT: crackles - Fine crackles in the lower bases bilaterally, decreased breath sounds GI/Abdominal exam: PRESENT: other - Soft. Obese. Nontender to palpation. I cannot assess for organomegaly due to the patient's body habitus Rectal exam: PRESENT: deferred Extremities exam: PRESENT: full ROM, other - He has venous stasis changes to both of his lower extremities bilaterally. He has very mild pitting edema worse on the left than the right that extends about long-term up his chun.. ABSENT: calf tenderness, clubbing, pedal edema Neurological exam: PRESENT: alert, awake, oriented to person, oriented to place , oriented to time, oriented to situation, CN II-XII grossly intact. ABSENT: motor sensory deficit Psychiatric exam: PRESENT: appropriate affect, normal mood. ABSENT: homicidal ideation, suicidal ideation Skin exam: PRESENT: dry, intact, warm. ABSENT: cyanosis, rash Results Laboratory Results: 01/12/18 11:33 01/12/18 11:33 WBC 5.6 RBC 3.09 L Hgb 8.9 L Hct 27.7 L MCV 90 MCH 28.9 MCHC 32.2 RDW 16.1 H Plt Count 178 Seg Neutrophils % 57.9 Lymphocytes % 25.2 Monocytes % 10.2 Eosinophils % 5.9 Basophils % 0.8 Absolute Neutrophils 3.2 Absolute Lymphocytes 1.4 Absolute Monocytes 0.6 Absolute Eosinophils 0.3 Absolute Basophils 0.0 01/10/18 01/10/18 01/10/18 02:05 08:01 14:40 Troponin I 0.028 0.028 0.028 Impressions: Cervical Spine CT 01/09/18 18:27 IMPRESSION: CHRONIC DEGENERATIVE CHANGES. NO ACUTE FINDINGS. Left pleural effusion. Head CT 01/09/18 18:27 IMPRESSION: CHRONIC CHANGES OF ATROPHY AND MICROVASCULAR ISCHEMIA. NO ACUTE PROCESS. EVIDENCE OF ACUTE STROKE: NO. Thoracic Spine X-Ray 01/09/18 18:35 IMPRESSION: Diffuse degenerative changes. No acute fracture. Chest CT 01/11/18 00:00 IMPRESSION: Moderate left subpulmonic effusion between the left hemidiaphragm and left lower lobe. Consolidation and collapse left lower lobe. Stable cardiomegaly, stable trace right pleural effusion Mild thickened interlobular septa likely related to mild interstitial edema Chest X-Ray 01/11/18 00:00 IMPRESSION: Trace right pleural effusion, suspect small left pleural effusion. Left effusion is smaller than on chest films 01/09/2018 and 12/26/2017 Left basilar consolidation atelectasis versus pneumonia. Cardiomegaly with pacemaker/ defibrillator. Old CABG. Assessment & Plan - Diagnosis (1) Acute and chronic respiratory failure Qualifiers: Respiratory failure complication: hypoxia and hypercapnia Qualified Code(s) : J96.21 - Acute and chronic respiratory failure with hypoxia; J96.22 - Acute and chronic respiratory failure with hypercapnia; J96.22 - Acute and chronic respiratory failure with hypercapnia; J96.22 - Acute and chronic respiratory failure with hypercapnia Is this a current diagnosis for this admission?: Yes Plan: The patient has been weaned off of BiPAP at this point. He will need to continue BiPAP at night. His acute exacerbation has resolved. This appears to be due to his pleural effusion as well as decompensated heart failure. Currently he is improving (2) Acute on chronic diastolic (congestive) heart failure Is this a current diagnosis for this admission?: Yes Plan: Continue Lasix 40 mg IV every 12 hours. (3) Pleural effusion, left Is this a current diagnosis for this admission?: Yes Plan: He will have a chest x-ray in the morning. His Eliquis is on hold in the event that he requires thoracentesis. For now we are just going to monitor. Ultimately he needs to get back to follow-up with his CT surgeon to maximize his status post CABG. the patient's son reports that he has had this pleural effusion drained twice since his procedure in September. He may end up being a candidate for pleurodesis if this continues to be a recurrent problem. (4) Syncope Is this a current diagnosis for this admission?: Yes Plan: Possibly due to his respiratory status. No further episodes (5) Atrial flutter Is this a current diagnosis for this admission?: Yes Plan: Currently he is in a sinus rhythm. His Eliquis is on hold in the event that he needs thoracentesis. (6) Chronic anticoagulation Is this a current diagnosis for this admission?: Yes Plan: Currently on hold due to the probability that he may require thoracentesis. (7) COPD (chronic obstructive pulmonary disease) Is this a current diagnosis for this admission?: Yes Plan: No evidence of acute exacerbation at this point. (8) Obesity (BMI 30-39.9) Is this a current diagnosis for this admission?: Yes Plan: Certainly his weight contributes to his overall respiratory status. (9) Opiate dependence, continuous Is this a current diagnosis for this admission?: Yes Plan: Continue home regimen. No complaints of increased pain (10) Anemia Qualifiers: Qualified Code(s): D64.9 - Anemia, unspecified Is this a current diagnosis for this admission?: Yes Plan: He has a chronic anemia consistent with chronic disease (11) Hypernatremia Is this a current diagnosis for this admission?: Yes Plan: Resolved (12) Full code status Is this a current diagnosis for this admission?: Yes - Time Time Spent with patient: 25-34 minutes - Inpatient Certification Medical Necessity: Significant Comorbidiites Make Outpatient Treatment Too Risky , Need Close Monitoring Due to Risk of Patient Decompensation, Need For Continuous Telemetry Monitoring, Other - Inpatient hospitalization remains necessary. The patient still has a significant pleural effusion. He may require thoracentesis. He has been diuresed with IV Lasix. Timing of disposition will be determined by his clinical course
--- NOTE | 2018-01-12 12:39 | PDOC CONSULTATION ---
Consultation Consult Date: 01/12/18 Attending physician:: SHIRAZ QUINONES Consult reason:: CHF History of Present Illness Admission Date/PCP: 01/09/18 21:49 MAURICE ORTIZ DO Patient complains of: Shortness of breath History of Present Illness: DANIEL OLIVA is a 72 year old male who comes to the emergency department after a fall. The patient tells me that he was going from his bedroom to the bathroom and fell onto a carpeted floor, he does not remember if he hit his head , he does not remember what has happened. In the ED he states that he had a headache and upper back pain. Patient does not remember if before he had any dizziness, lightheadedness or any neurological symptom. Denies shortness of breath, chest pain, abdominal pain, diarrhea, constipation, urinary symptoms, palpitations. Patient has been recently discharged from our facility on 710 With acute on chronic respiratory failure, high output cardiac failure, left pleural effusion status post thoracentesis, COPD exacerbation, acute renal failure. Patient tells me that she wears oxygen at home 2 L and CPAP at night, he was wearing his oxygen at the time of his fall. Workup was done in the emergency department and he was found with vascular congestion and a chest x-ray. His BNP has increased from 2800 to 5170. Patient is states he is compliant with his p.o. Lasix at home. This history was obtained by the hospitalist was reviewed and confirmed with the patient. Subsequently patient had chest x-ray and CT scan which showed significant pleural effusion left more than right. Chest tube drainage was planned but subsequently postponed or canceled. I was asked to assess if this patient pleural effusion could be related to CHF. On questioning patient denied any chest pain. Patient does have significant cardiac problem which includes history of coronary artery disease with coronary artery bypass graft surgery, history of defibrillator placement and then replacement because of infection. Patient also noted to have COPD and possibly significant sleep apnea syndrome. Past Medical History Cardiac Medical History: Reports: Congestive Heart Failure, Coronary Artery Disease, Myocardial Infarction, Hypertension, Pulmonary Embolism Pulmonary Medical History: Reports: Chronic Obstructive Pulmonary Disease (COPD) Neurological Medical History: Denies: Seizures Endocrine Medical History: Reports: Diabetes Mellitus Type 2 - History of same, but only on medication for short time. Renal/ Medical History: Denies: End Stage Renal Disease GI Medical History: Denies: Crohn's Disease, Ulcerative Colitis Musculoskeltal Medical History: Reports: Arthritis Skin Medical History: Denies: Psoriasis Psychiatric Medical History: Reports: Depression Traumatic Medical History: Denies: Traumatic Brain Injury Hematology: Denies: Hemophilia, Sickle Cell Disease Past Surgical History Past Surgical History: Reports: Cardiac Catheterization, Coronary Artery Bypass Graft, Coronary Stent, Internal Defibrillator, Pacemaker - Initial device removed for infection; subsequent AICD implant., Tonsillectomy Social History Information Source: Patient Lives with: Family Smoking Status: Current Every Day Smoker Frequency of Alcohol Use: None Hx Recreational Drug Use: No Drugs: None Hx Prescription Drug Abuse: No - Advance Directive Resuscitation Status: Full Code Family History Family History: CAD, COPD Parental Family History Reviewed: Yes Children Family History Reviewed: Yes Sibling(s) Family History Reviewed.: Yes Medication/Allergy Home Medications: Amiodarone HCl [Pacerone] 200 mg PO DAILY 12/16/17 Aspirin [Ecotrin 81 mg EC Tablet] 81 mg PO DAILY 12/16/17 Atorvastatin Calcium [Lipitor 40 mg Tablet] 40 mg PO DAILY 12/16/17 Methocarbamol [Robaxin 750 mg Tablet] 750 mg PO Q6HP PRN 12/16/17 Multivitamin [Tab-A-Caroline (Multiple Vitamin) Tablet] 1 tab PO DAILY 12/16/17 Oxycodone HCl/Acetaminophen [Endocet 10-325 mg Tablet] 1 tab PO Q6HP PRN Sertraline HCl [Zoloft 50 mg Tablet] 50 mg PO DAILY 12/16/17 Umeclidinium Brm/Vilanterol Tr [Anoro Ellipta 62.5-25 Mcg INH] 1 puff IH QAM Apixaban [Eliquis 5 mg Tablet] 5 mg PO BID tablet 01/03/18 Docusate Sodium [Colace 100 mg Capsule] 100 mg PO DAILYP PRN 01/10/18 Furosemide [Lasix 40 mg Tablet] 40 mg PO BIDP PRN 01/10/18 Lisinopril [Prinivil 40 mg Tablet] 40 mg PO DAILY 01/10/18 Allergies/Adverse Reactions: No Known Allergies Allergy (Verified 01/10/18 10:34) Review of Systems Review of Systems: Please see history of present illness and past medical history as wall. Constitutional: No fever or chills reported. Patient does report fatigue and tiredness. Has noted recent weight gain Head : No recent chronic headaches, recent head injury. Eyes: No recent eye pain, diplopia, redness, discharge, acute visual changes. Ears: No recent chronic ear pain, acute hearing loss, ear discharge. Oral cavity: No recent ulcerations, bleeding, oral cavity discomfort. Neck: No recent acute neck pain reported. Hematologic: No recent easy bruising or bleeding. Lymphatic: No recent lymph node enlargement reported. Cardiovascular system review: See history of present illness. Patient denies any recent defibrillator discharges Respiratory system review: No hemoptysis or blood clots in the lungs reported. Shortness of breath on exertion Gastrointestinal system review: Negative for any recent acute hematemesis, melena. Genitourinary system review: No recent acute or chronic hematuria, flank pain, UTI etc. reported. Skin system review: Negative for any recent abnormal bruising, no rash, no pruritus reported. Neurologic: No prior history of strokes, mini strokes, seizure disorder. Psychologic: No history of major psychosis or major depression reported. Musculoskeletal: Minor aches and pains reported. No acute joint swelling reported. Endocrine: No recent polyuria, polydipsia, recent heat or cold intolerance. Physical Exam Vital Signs: Temp Pulse Resp BP Pulse Ox 98.1 F 60 16 105/42 L 96 01/12/18 04:09 01/12/18 07:00 01/12/18 04:09 01/12/18 04:09 01/12/18 08:00 Intake & Output 01/11/18 01/12/18 01/13/18 06:59 06:59 06:59 Intake Total 924 722 Output Total 640 3280 Balance 284 -2558 Weight 116.9 kg 115.9 kg Exam: GENERAL: well-nourished and in no acute distress. Alert and oriented x3 HEAD: Atraumatic, normocephalic. EYES: Pupils equal round and reactive to light, extraocular movements intact, sclera anicteric, conjunctiva are normal. ENT: TMs normal, nares patent, oropharynx clear without exudates. Moist mucous membranes. No oral ulcerations or bleeding gums noted NECK: supple without lymphadenopathy. Trachea is central. No cervical or axillary lymphadenopathy noted. Carotids are 2+, JVD 12-14 cm LUNGS: Respiration seems nonlabored, no significant accessory muscle action noted. Bibasilar fine crackles with scattered wheezes rales or rhonchi noted. Bilateral left more than right significant dullness noted on percussion. CHEST: Palpation of the chest wall shows no significant chest wall tenderness. HEART: [employer], No PSH, 2/6 BARBI aortic area, 1/6 richards systolic murmur mitral area, no rubs, no gallops. ABDOMEN: Soft, no significant tenderness appreciated, normoactive bowel sounds. No guarding, no rebound. No rigidity noted . No masses appreciated. EXTREMITIES: Pedal pulses are 1-2+, no calf tenderness noted. No clubbing or cyanosis. 2+ pedal edema noted NEUROLOGICAL: Focused neurological exam showed no significant neurologic deficit. Normal speech, no focal weakness appreciated. PSYCH: Normal mood, normal affect. Judgment and insight within normal limits. SKIN: No significant ecchymosis, skin is noted to be warm. MUSCULOSKELETAL EXAM: No significant acute joint swelling noted. Results Laboratory Results: 01/12/18 11:33 01/12/18 11:33 01/12/18 01/12/18 11:33 11:33 WBC 5.6 RBC 3.09 L Hgb 8.9 L Hct 27.7 L MCV 90 MCH 28.9 MCHC 32.2 RDW 16.1 H Plt Count 178 Seg Neutrophils % 57.9 Lymphocytes % 25.2 Monocytes % 10.2 Eosinophils % 5.9 Basophils % 0.8 Absolute Neutrophils 3.2 Absolute Lymphocytes 1.4 Absolute Monocytes 0.6 Absolute Eosinophils 0.3 Absolute Basophils 0.0 Sodium 143.6 Potassium 4.6 Chloride 98 Carbon Dioxide 36 H Anion Gap 10 BUN 22 H Creatinine 1.27 H Est GFR ( Amer) > 60 Est GFR (Non-Af Amer) 56 L Glucose 85 Calcium 8.5 Magnesium 1.8 01/10/18 01/10/18 01/10/18 02:05 08:01 14:40 Troponin I 0.028 0.028 0.028 EKG Comments: Twelve-lead EKG shows AV paced rhythm Impressions: Cervical Spine CT 01/09/18 18:27 IMPRESSION: CHRONIC DEGENERATIVE CHANGES. NO ACUTE FINDINGS. Left pleural effusion. Head CT 01/09/18 18:27 IMPRESSION: CHRONIC CHANGES OF ATROPHY AND MICROVASCULAR ISCHEMIA. NO ACUTE PROCESS. EVIDENCE OF ACUTE STROKE: NO. Thoracic Spine X-Ray 01/09/18 18:35 IMPRESSION: Diffuse degenerative changes. No acute fracture. Chest CT 01/11/18 00:00 IMPRESSION: Moderate left subpulmonic effusion between the left hemidiaphragm and left lower lobe. Consolidation and collapse left lower lobe. Stable cardiomegaly, stable trace right pleural effusion Mild thickened interlobular septa likely related to mild interstitial edema Chest X-Ray 01/11/18 00:00 IMPRESSION: Trace right pleural effusion, suspect small left pleural effusion. Left effusion is smaller than on chest films 01/09/2018 and 12/26/2017 Left basilar consolidation atelectasis versus pneumonia. Cardiomegaly with pacemaker/ defibrillator. Old CABG. Assessment & Plan - Diagnosis (1) Acute on chronic diastolic (congestive) heart failure Is this a current diagnosis for this admission?: Yes (2) Acute and chronic respiratory failure Qualifiers: Respiratory failure complication: hypoxia and hypercapnia Qualified Code(s) : J96.21 - Acute and chronic respiratory failure with hypoxia; J96.22 - Acute and chronic respiratory failure with hypercapnia; J96.22 - Acute and chronic respiratory failure with hypercapnia; J96.22 - Acute and chronic respiratory failure with hypercapnia Is this a current diagnosis for this admission?: Yes (3) COPD (chronic obstructive pulmonary disease) Qualifiers: Chronic bronchitis type: unspecified Is this a current diagnosis for this admission?: Yes (4) Obstructive sleep apnea Is this a current diagnosis for this admission?: Yes (5) Pleural effusion, left Is this a current diagnosis for this admission?: Yes (6) History of atrial fibrillation Is this a current diagnosis for this admission?: Yes - Notes Notes: Acute on chronic CHF, predominantly diastolic but I suspect significant contribution from right heart failure. Previous 2D echocardiogram reviewed and was technically difficult. At this point recommend continuing IV diuretic therapy. Acute on chronic respiratory failure: This is based on COPD, obesity hypoventilation syndrome, obstructive sleep apnea. May consider pulmonary help. COPD: Patient has been advised to quit smoking. Continue bronchodilator and other therapy as needed. Obstructive sleep apnea: Patient will benefit from intermittent and nightly CPAP /BiPAP therapy. Left pleural effusion: Patient also has a smaller right pleural effusion. [place] to be related to CHF. Recommend continuing diuresis. However if pleural effusion persist may consider thoracentesis just for diagnostic purposes unless it has not been done in previous admissions. Patient has a history of atrial fibrillation: Currently on amiodarone therapy. Recommend chronic anticoagulation if there are no contraindications. However this can be considered as an outpatient as well. - Time Time Spent: 30 to 50 Minutes - CODE STATUS was discussed, patient remains full code. More than 50% of the time spent coordinating care, discussing management plans with involved caregivers. Management plans discussed with involved personnels. Medical decision making was of moderate to high complexity, patient 's has multiple comorbidities. Medications reviewed and adjusted accordingly: Yes
[2018-01-13] MEDS: OXYCODONE-ACETAMINOPHEN 5-325 MG TABLET PO PRN ×3 (00:06→12:19)
[2018-01-13] MEDS: OXYCODONE HCL IR 5 MG TABLET PO PRN ×4 (00:07→18:37)
[2018-01-13 04:55] LABS: ABSOLUTE EOSINOPHILS # (AUTO) 0.3 10^3/uL (0.0-0.6); ABSOLUTE LYMPHOCYTES (AUTO) 1.5 10^3/uL (0.5-4.7); ABSOLUTE MONOCYTES (AUTO) 0.5 10^3/uL (0.1-1.4); ABSOLUTE NEUT (AUTO) 2.8 10^3/uL (1.7-8.2); BASOPHILS % (AUTO) 0.5 % (0-2); EOSINOPHILS % (AUTO) 5.6 % (0-6); HEMATOCRIT 28.7 % (37.9-51.0); HEMOGLOBIN 9.2 g/dL (13.5-17.0); LYMPHOCYTES % (AUTO) 28.8 % (13-45); MEAN CORPUSCULAR HEMOGLOBIN 28.6 pg (27.0-33.4); MEAN CORPUSCULAR HGB CONC 32.2 g/dL (32.0-36.0); MEAN CORPUSCULAR VOLUME 89 fl (80-97); MONOCYTES % (AUTO) 10.4 % (3-13); PLATELET COUNT 155 10^3/uL (150-450); RED BLOOD COUNT 3.23 10^6/uL (4.35-5.55); RED CELL DISTRIBUTION WIDTH 16.1 % (11.5-14.0); SEGMENTED NEUTROPHILS % (AUTO) 54.7 % (42-78); TOTAL CELLS COUNTED % (AUTO) 100 %; WHITE BLOOD COUNT 5.1 10^3/uL (4.0-10.5)
[2018-01-13 05:13] LABS: ANION GAP 8 (5-19); BLOOD UREA NITROGEN 27 mg/dL (7-20); CALCIUM 8.4 mg/dL (8.4-10.2); CARBON DIOXIDE 38 mmol/L (22-30); CHLORIDE 96 mmol/L (98-107); GLUCOSE 90 mg/dL (75-110); POTASSIUM 4.5 mmol/L (3.6-5.0); SODIUM 142.2 mmol/L (137-145)
[2018-01-13] MEDS: LANSOPRAZOLE 15 MG TAB.RAP.DR PO SCH (08:13)
[2018-01-13] MEDS: POTASSIUM CHLORIDE 10 MEQ CAPSULE.ER PO SCH ×2 (10:35→21:49)
[2018-01-13] MEDS: DOCUSATE SODIUM 100 MG CAPSULE PO SCH (10:35)
[2018-01-13] MEDS: AMIODARONE HCL 200 MG TABLET PO SCH (10:36)
[2018-01-13] MEDS: SERTRALINE HCL 50 MG TABLET PO SCH (10:36)
[2018-01-13] MEDS: APIXABAN 5 MG TABLET PO SCH ×2 (10:36→19:13)
[2018-01-13] MEDS: ASPIRIN 81 MG TABLET, ENT COATED PO SCH (10:36)
[2018-01-13] MEDS: ATORVASTATIN CALCIUM 40 MG TABLET PO SCH (10:36)
[2018-01-13] MEDS: FUROSEMIDE INJ/PF 40 MG/4 ML SDV IV SCH (10:36)
--- NOTE | 2018-01-13 18:18 | PDOC PROGRESS REPORT ---
Subjective Progress Note for:: 01/13/18 Subjective:: This is a 72-year-old man who has been admitted for heart failure exacerbation. He has been diuresed aggressively. He is overall feeling better. His breathing is close to normal. His leg size is back to normal per both patient and son. She has small bilateral pleural effusions. Cardiology has consulted. No nausea vomiting chest pain or difficulty breathing, eating and drinking without difficulty. Reason For Visit: HEART FAILURE Physical Exam Vital Signs: Temp Pulse Resp BP Pulse Ox 97.8 F 60 17 134/66 H 100 01/13/18 03:12 01/13/18 14:00 01/13/18 04:07 01/13/18 03:12 01/13/18 03:12 Intake & Output 01/12/18 01/13/18 01/14/18 06:59 06:59 06:59 Intake Total 722 949 0 Output Total 3280 1800 700 Balance -2558 -851 -700 Weight 115.9 kg 118.9 kg General appearance: PRESENT: no acute distress, cooperative, obese Head exam: PRESENT: atraumatic, normocephalic Eye exam: ABSENT: conjunctival injection, scleral icterus Ear exam: PRESENT: normal external ear exam Mouth exam: PRESENT: moist, neck supple, tongue midline Neck exam: ABSENT: tenderness, tracheostomy Respiratory exam: PRESENT: rales - Trace rales in the bilateral bases, unlabored. ABSENT: rhonchi, wheezes Cardiovascular exam: PRESENT: RRR. ABSENT: systolic murmur Pulses: PRESENT: normal radial pulses GI/Abdominal exam: PRESENT: normal bowel sounds, soft. ABSENT: distended, guarding, tenderness Rectal exam: PRESENT: deferred Gentrourinary exam: ABSENT: indwelling catheter Extremities exam: PRESENT: +1 edema Neurological exam: PRESENT: alert, awake, oriented to person, oriented to place , oriented to situation Psychiatric exam: PRESENT: appropriate affect. ABSENT: anxious Skin exam: PRESENT: dry, intact, warm Results Laboratory Results: 01/13/18 03:58 01/13/18 03:58 01/13/18 01/13/18 03:58 03:58 WBC 5.1 RBC 3.23 L Hgb 9.2 L Hct 28.7 L MCV 89 MCH 28.6 MCHC 32.2 RDW 16.1 H Plt Count 155 Seg Neutrophils % 54.7 Lymphocytes % 28.8 Monocytes % 10.4 Eosinophils % 5.6 Basophils % 0.5 Absolute Neutrophils 2.8 Absolute Lymphocytes 1.5 Absolute Monocytes 0.5 Absolute Eosinophils 0.3 Absolute Basophils 0.0 Sodium 142.2 Potassium 4.5 Chloride 96 L Carbon Dioxide 38 H Anion Gap 8 BUN 27 H Creatinine 1.31 H Est GFR ( Amer) > 60 Est GFR (Non-Af Amer) 54 L Glucose 90 Calcium 8.4 Magnesium 1.8 01/10/18 01/10/18 01/10/18 02:05 08:01 14:40 Troponin I 0.028 0.028 0.028 Impressions: Cervical Spine CT 01/09/18 18:27 IMPRESSION: CHRONIC DEGENERATIVE CHANGES. NO ACUTE FINDINGS. Left pleural effusion. Head CT 01/09/18 18:27 IMPRESSION: CHRONIC CHANGES OF ATROPHY AND MICROVASCULAR ISCHEMIA. NO ACUTE PROCESS. EVIDENCE OF ACUTE STROKE: NO. Thoracic Spine X-Ray 01/09/18 18:35 IMPRESSION: Diffuse degenerative changes. No acute fracture. Chest CT 01/11/18 00:00 IMPRESSION: Moderate left subpulmonic effusion between the left hemidiaphragm and left lower lobe. Consolidation and collapse left lower lobe. Stable cardiomegaly, stable trace right pleural effusion Mild thickened interlobular septa likely related to mild interstitial edema Chest X-Ray 01/11/18 00:00 IMPRESSION: Trace right pleural effusion, suspect small left pleural effusion. Left effusion is smaller than on chest films 01/09/2018 and 12/26/2017 Left basilar consolidation atelectasis versus pneumonia. Cardiomegaly with pacemaker/ defibrillator. 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 Assessment & Plan - Diagnosis (1) Pleural effusion, left Is this a current diagnosis for this admission?: Yes Plan: Patient's respiratory status he reports has returned to normal. His pleural effusion is small. He has been drained several times recently by intermit a radiologist. Now we will monitor pleural effusion with diuresis. Of note patient recently had CABG. He has not been to his doctor for follow-up. The surgery was in September and we are recommending close follow-up with his exam proctor. (2) Acute and chronic respiratory failure Qualifiers: Respiratory failure complication: hypoxia and hypercapnia Qualified Code(s) : J96.21 - Acute and chronic respiratory failure with hypoxia; J96.22 - Acute and chronic respiratory failure with hypercapnia; J96.22 - Acute and chronic respiratory failure with hypercapnia; J96.22 - Acute and chronic respiratory failure with hypercapnia Is this a current diagnosis for this admission?: Yes Plan: Secondary to heart failure exacerbation along with underlying probable [place] and COPD, patient is overall improving. Possible contraction alkalosis with elevated creatinine and elevated bicarb. Will hold diuresis and monitor. Will check labs again in the morning. Will hope to start patient on his home regimen of Lasix in the next day or so and get him discharged. Continue his other cardiac meds as ordered. Patient continuing to use BiPAP at night. (3) Atrial flutter Is this a current diagnosis for this admission?: Yes Plan: Patient is in sinus rhythm. He is on amiodarone and this will continue. We will also continue his Eliquis. (4) CHF exacerbation Qualifiers: Heart failure type: combined systolic and diastolic Qualified Code(s): I50.43 - Acute on chronic combined systolic (congestive) and diastolic ( congestive) heart failure Is this a current diagnosis for this admission?: Yes Plan: Acute component resolved. We will continue cardiac meds and please see acute on chronic respiratory failure for remainder of plan. (5) COPD (chronic obstructive pulmonary disease) Qualifiers: Chronic bronchitis type: unspecified Is this a current diagnosis for this admission?: Yes Plan: Appears stable. No wheezing. (6) Chronic anticoagulation Is this a current diagnosis for this admission?: Yes Plan: On Eliquis, no evident complications. Continue Eliquis. (7) Opiate dependence, continuous Is this a current diagnosis for this admission?: Yes Plan: Patient has chronic back pain and is on oxycodone every 6 hours. This will continue. (8) Syncope Is this a current diagnosis for this admission?: Yes Plan: No further episodes. Continue to monitor closely. (9) Anemia Qualifiers: Qualified Code(s): D64.9 - Anemia, unspecified Is this a current diagnosis for this admission?: Yes Plan: Stable, anemia of chronic disease. - Time Time Spent with patient: 25-34 minutes Medications reviewed and adjusted accordingly: Yes - Inpatient Certification Based on my medical assessment, after consideration of the patient's comorbidities, presenting symptoms, or acuity I expect that the services needed warrant INPATIENT care.: Yes I certify that my determination is in accordance with my understanding of Medicare's requirements for reasonable and necessary INPATIENT services [42 CFR 412.3e].: Yes
--- NOTE | 2018-01-13 20:16 | PDOC PROGRESS REPORT ---
Subjective Progress Note for:: 01/13/18 Subjective:: Patient seems to be doing better with gradual improvement. Pt is denying any chest arm or neck discomfort. Patient denying any PND, orthopnea. Patient denied any sustained palpitations, dizziness, syncope, near syncope. Patient denying any fever chills. Patient denying any other significant discomfort. Patient is maintaining sinus rhythm. Review of systems: Rest review of systems negative. Medications: Medications have been reviewed. Reason For Visit: HEART FAILURE Physical Exam Vital Signs: Temp Pulse Resp BP Pulse Ox 97.8 F 60 22 H 126/52 H 91 L 01/13/18 16:05 01/13/18 19:00 01/13/18 16:05 01/13/18 16:05 01/13/18 16:05 Intake & Output 01/12/18 01/13/18 01/14/18 06:59 06:59 06:59 Intake Total 722 949 232 Output Total 3280 1800 1100 Balance -2908 -851 -868 Weight 115.9 kg 118.9 kg Exam: GENERAL: well-nourished and in no acute distress. Alert and oriented x3 HEAD: Atraumatic, normocephalic. EYES: Pupils equal round and reactive to light, extraocular movements intact, sclera anicteric, conjunctiva are normal. ENT: TMs normal, nares patent, oropharynx clear without exudates. Moist mucous membranes. No oral ulcerations or bleeding gums noted NECK: supple without lymphadenopathy. Trachea is central. No cervical or axillary lymphadenopathy noted. Carotids are 2+, JVD WNL LUNGS: Respiration seems nonlabored, no significant accessory muscle action noted. Bibasilar fine crackles and few a scattered wheezes rales or rhonchi noted. No significant dullness noted on percussion. CHEST: Palpation of the chest wall shows no significant chest wall tenderness. 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 ABDOMEN: Soft, no significant tenderness appreciated, normoactive bowel sounds. No guarding, no rebound. No rigidity noted . No masses appreciated. EXTREMITIES: Pedal pulses are 1-2+, no calf tenderness noted. No clubbing or cyanosis. 1+ pedal edema noted NEUROLOGICAL: Focused neurological exam showed no significant neurologic deficit. Normal speech, generalized weakness noted. PSYCH: Normal mood, normal affect. Judgment and insight within normal limits. SKIN: No significant ecchymosis, skin is noted to be warm. MUSCULOSKELETAL EXAM: No significant acute joint swelling noted. Results Laboratory Results: 01/13/18 03:58 01/13/18 03:58 01/13/18 01/13/18 03:58 03:58 WBC 5.1 RBC 3.23 L Hgb 9.2 L Hct 28.7 L MCV 89 MCH 28.6 MCHC 32.2 RDW 16.1 H Plt Count 155 Seg Neutrophils % 54.7 Lymphocytes % 28.8 Monocytes % 10.4 Eosinophils % 5.6 Basophils % 0.5 Absolute Neutrophils 2.8 Absolute Lymphocytes 1.5 Absolute Monocytes 0.5 Absolute Eosinophils 0.3 Absolute Basophils 0.0 Sodium 142.2 Potassium 4.5 Chloride 96 L Carbon Dioxide 38 H Anion Gap 8 BUN 27 H Creatinine 1.31 H Est GFR ( Amer) > 60 Est GFR (Non-Af Amer) 54 L Glucose 90 Calcium 8.4 Magnesium 1.8 01/10/18 01/10/18 01/10/18 02:05 08:01 14:40 Troponin I 0.028 0.028 0.028 EKG Comments: Twelve-lead EKG shows AV paced rhythm Impressions: Cervical Spine CT 01/09/18 18:27 IMPRESSION: CHRONIC DEGENERATIVE CHANGES. NO ACUTE FINDINGS. Left pleural effusion. Head CT 01/09/18 18:27 IMPRESSION: CHRONIC CHANGES OF ATROPHY AND MICROVASCULAR ISCHEMIA. NO ACUTE PROCESS. EVIDENCE OF ACUTE STROKE: NO. Thoracic Spine X-Ray 01/09/18 18:35 IMPRESSION: Diffuse degenerative changes. No acute fracture. Chest CT 01/11/18 00:00 IMPRESSION: Moderate left subpulmonic effusion between the left hemidiaphragm and left lower lobe. Consolidation and collapse left lower lobe. Stable cardiomegaly, stable trace right pleural effusion Mild thickened interlobular septa likely related to mild interstitial edema Chest X-Ray 01/11/18 00:00 IMPRESSION: Trace right pleural effusion, suspect small left pleural effusion. Left effusion is smaller than on chest films 01/09/2018 and 12/26/2017 Left basilar consolidation atelectasis versus pneumonia. Cardiomegaly with pacemaker/ defibrillator. 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 Assessment & Plan - Diagnosis (1) Acute on chronic diastolic (congestive) heart failure Is this a current diagnosis for this admission?: Yes (2) Acute and chronic respiratory failure Qualifiers: Respiratory failure complication: hypoxia and hypercapnia Qualified Code(s) : J96.21 - Acute and chronic respiratory failure with hypoxia; J96.22 - Acute and chronic respiratory failure with hypercapnia; J96.22 - Acute and chronic respiratory failure with hypercapnia; J96.22 - Acute and chronic respiratory failure with hypercapnia Is this a current diagnosis for this admission?: Yes (3) COPD (chronic obstructive pulmonary disease) Qualifiers: Chronic bronchitis type: unspecified Is this a current diagnosis for this admission?: Yes (4) Obstructive sleep apnea Is this a current diagnosis for this admission?: Yes (5) Pleural effusion, left Is this a current diagnosis for this admission?: Yes (6) History of atrial fibrillation Is this a current diagnosis for this admission?: Yes - Notes Notes: Acute on chronic CHF, predominantly diastolic but I suspect significant contribution from right heart failure. Previous 2D echocardiogram reviewed and was technically difficult. At this point recommend continuing IV diuretic therapy. Patient seems to be significantly improved today. Acute on chronic respiratory failure: This is based on COPD, obesity hypoventilation syndrome, obstructive sleep apnea. May consider pulmonary help. COPD: Patient has been advised to quit smoking. Continue bronchodilator and other therapy as needed. Obstructive sleep apnea: Patient will benefit from intermittent and nightly CPAP /BiPAP therapy. Left pleural effusion: Patient also has a smaller right pleural effusion. [place] to be related to CHF. Recommend continuing diuresis. However if pleural effusion persist may consider thoracentesis just for diagnostic purposes unless it has not been done in previous admissions. Patient has a history of atrial fibrillation: Currently on amiodarone therapy. Recommend chronic anticoagulation if there are no contraindications. However this can be considered as an outpatient as well. Patient has poor physical activity. He also seems quite debilitated. He will benefit from physical therapy, may consider rehab referral. - Time Time with patient: Greater than 35 minutes - CODE STATUS was discussed, patient remains full code. Surrogate decision-maker patient's son. Multiple medical problems were addressed. More than 50% of the time spent coordinating care, discussing management plans with involved caregivers. Management plans discussed with involved personnels. Medical decision making was of moderate to high complexity, patient's has multiple comorbidities.
--- NOTE | 2018-01-13 21:58 | EKG REPORT ---
SEVERITY:- ABNORMAL ECG - ATRIAL-VENTRICULAR DUAL-PACED RHYTHM : Confirmed by: Farzana Still 13-Jan-2018 21:57:08
[2018-01-14] MEDS: OXYCODONE-ACETAMINOPHEN 5-325 MG TABLET PO PRN ×4 (03:49→23:55)
[2018-01-14] MEDS: OXYCODONE HCL IR 5 MG TABLET PO PRN ×4 (03:50→23:55)
[2018-01-14 05:15] LABS: ANION GAP 8 (5-19); BLOOD UREA NITROGEN 26 mg/dL (7-20); CALCIUM 8.7 mg/dL (8.4-10.2); CARBON DIOXIDE 39 mmol/L (22-30); CHLORIDE 96 mmol/L (98-107); GLUCOSE 104 mg/dL (75-110); POTASSIUM 4.7 mmol/L (3.6-5.0); SODIUM 143.1 mmol/L (137-145)
[2018-01-14] MEDS: LANSOPRAZOLE 15 MG TAB.RAP.DR PO SCH (08:10)
[2018-01-14] MEDS: ATORVASTATIN CALCIUM 40 MG TABLET PO SCH (09:55)
[2018-01-14] MEDS: DOCUSATE SODIUM 100 MG CAPSULE PO SCH (09:55)
[2018-01-14] MEDS: POTASSIUM CHLORIDE 10 MEQ CAPSULE.ER PO SCH ×2 (09:56→21:37)
[2018-01-14] MEDS: SERTRALINE HCL 50 MG TABLET PO SCH (09:56)
[2018-01-14] MEDS: ASPIRIN 81 MG TABLET, ENT COATED PO SCH (09:56)
[2018-01-14] MEDS: AMIODARONE HCL 200 MG TABLET PO SCH (09:56)
[2018-01-14] MEDS: APIXABAN 5 MG TABLET PO SCH ×2 (09:57→17:01)
--- NOTE | 2018-01-14 14:16 | PDOC PROGRESS REPORT ---
Subjective Progress Note for:: 01/14/18 Subjective:: Patient seems to be doing better with gradual improvement. Pt is denying any chest arm or neck discomfort. Patient denying any PND, orthopnea. Patient denied any sustained palpitations, dizziness, syncope, near syncope. Patient denying any fever chills. Patient denying any other significant discomfort. Patient is maintaining sinus rhythm. Review of systems: Rest review of systems negative. Medications: Medications have been reviewed. Reason For Visit: HEART FAILURE Physical Exam Vital Signs: Temp Pulse Resp BP Pulse Ox 98.0 F 55 L 20 122/62 99 01/14/18 11:46 01/14/18 11:46 01/14/18 11:46 01/14/18 11:46 01/14/18 11:46 Intake & Output 01/13/18 01/14/18 01/15/18 06:59 06:59 06:59 Intake Total 949 469 355 Output Total 1800 1800 400 Balance -851 -1331 -45 Weight 118.9 kg 119.6 kg Exam: GENERAL: well-nourished and in no acute distress. Alert and oriented x3 HEAD: Atraumatic, normocephalic. EYES: Pupils equal round and reactive to light, extraocular movements intact, sclera anicteric, conjunctiva are normal. ENT: TMs normal, nares patent, oropharynx clear without exudates. Moist mucous membranes. No oral ulcerations or bleeding gums noted NECK: supple without lymphadenopathy. Trachea is central. No cervical or axillary lymphadenopathy noted. Carotids are 2+, JVD WNL LUNGS: Respiration seems nonlabored, no significant accessory muscle action noted. Bibasilar fine crackles and few a scattered wheezes rales or rhonchi noted. Mild dullness noted both bases left more than right dullness noted on percussion. CHEST: Palpation of the chest wall shows no significant chest wall tenderness. 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 ABDOMEN: Soft, no significant tenderness appreciated, normoactive bowel sounds. No guarding, no rebound. No rigidity noted . No masses appreciated. EXTREMITIES: Pedal pulses are 1-2+, no calf tenderness noted. No clubbing or cyanosis. 1+ pedal edema noted NEUROLOGICAL: Focused neurological exam showed no significant neurologic deficit. Normal speech, no focal weakness appreciated. PSYCH: Normal mood, normal affect. Judgment and insight within normal limits. SKIN: No significant ecchymosis, skin is noted to be warm. MUSCULOSKELETAL EXAM: No significant acute joint swelling noted. Results Laboratory Results: 01/13/18 03:58 01/14/18 04:10 01/14/18 04:10 Sodium 143.1 Potassium 4.7 Chloride 96 L Carbon Dioxide 39 H Anion Gap 8 BUN 26 H Creatinine 1.39 H Est GFR ( Amer) > 60 Est GFR (Non-Af Amer) 50 L Glucose 104 Calcium 8.7 Magnesium 1.9 01/10/18 01/10/18 01/10/18 02:05 08:01 14:40 Troponin I 0.028 0.028 0.028 EKG Comments: Shows AV paced rhythm. No other significant cardiac dysrhythmia noted. Impressions: Cervical Spine CT 01/09/18 18:27 IMPRESSION: CHRONIC DEGENERATIVE CHANGES. NO ACUTE FINDINGS. Left pleural effusion. Head CT 01/09/18 18:27 IMPRESSION: CHRONIC CHANGES OF ATROPHY AND MICROVASCULAR ISCHEMIA. NO ACUTE PROCESS. EVIDENCE OF ACUTE STROKE: NO. Thoracic Spine X-Ray 01/09/18 18:35 IMPRESSION: Diffuse degenerative changes. No acute fracture. Chest CT 01/11/18 00:00 IMPRESSION: Moderate left subpulmonic effusion between the left hemidiaphragm and left lower lobe. Consolidation and collapse left lower lobe. Stable cardiomegaly, stable trace right pleural effusion Mild thickened interlobular septa likely related to mild interstitial edema Chest X-Ray 01/11/18 00:00 IMPRESSION: Trace right pleural effusion, suspect small left pleural effusion. Left effusion is smaller than on chest films 01/09/2018 and 12/26/2017 Left basilar consolidation atelectasis versus pneumonia. Cardiomegaly with pacemaker/ defibrillator. 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 Assessment & Plan - Diagnosis (1) Acute on chronic diastolic (congestive) heart failure Is this a current diagnosis for this admission?: Yes (2) Acute and chronic respiratory failure Qualifiers: Respiratory failure complication: hypoxia and hypercapnia Qualified Code(s) : J96.21 - Acute and chronic respiratory failure with hypoxia; J96.22 - Acute and chronic respiratory failure with hypercapnia; J96.22 - Acute and chronic respiratory failure with hypercapnia; J96.22 - Acute and chronic respiratory failure with hypercapnia Is this a current diagnosis for this admission?: Yes (3) COPD (chronic obstructive pulmonary disease) Qualifiers: Chronic bronchitis type: unspecified Is this a current diagnosis for this admission?: Yes (4) Obstructive sleep apnea Is this a current diagnosis for this admission?: Yes (5) Pleural effusion, left Is this a current diagnosis for this admission?: Yes (6) History of atrial fibrillation Is this a current diagnosis for this admission?: Yes - Notes Notes: Acute on chronic CHF, predominantly diastolic but I suspect significant contribution from right heart failure. Previous 2D echocardiogram reviewed and was technically difficult. Will start patient on torsemide 10 mg p.o. daily. Monitor intake output, daily weight.. Acute on chronic respiratory failure: This is based on COPD, obesity hypoventilation syndrome, obstructive sleep apnea. COPD: Patient today claims that he had quit smoking several years ago. Continue bronchodilator and other therapy as needed. Obstructive sleep apnea: Patient will benefit from intermittent and nightly CPAP /BiPAP therapy. Left pleural effusion: Patient also has a smaller right pleural effusion. [place] to be related to CHF. Recommend continuing diuresis. However if pleural effusion persist may consider thoracentesis just for diagnostic purposes unless it has not been done in previous admissions. Patient has a history of atrial fibrillation: Currently on amiodarone therapy. Patient currently is started on chronic anticoagulation with Eliquis. - Time Time with patient: 15-25 minutes - CODE STATUS was discussed, patient remains full code. Surrogate decision-maker patient's son. Multiple medical problems were addressed. More than 50% of the time spent coordinating care, discussing management plans with involved caregivers. Management plans discussed with involved personnels. Medical decision making was of moderate to high complexity , patient's has multiple comorbidities. Medications reviewed and adjusted accordingly: Yes
[2018-01-14] MEDS ORDERED: NITROGLYCERIN 2% OINTMENT 1 GM PACKET TP ONE (16:00)
--- NOTE | 2018-01-14 17:32 | PDOC PROGRESS REPORT ---
Subjective Progress Note for:: 01/14/18 Subjective:: Patient states that his right upper back has been hurting since he fell the other day. His breathing is back to normal. He feels that his swelling has improved. He is eating and drinking normally. No constipation or diarrhea. No dysuria. Reason For Visit: HEART FAILURE Physical Exam Vital Signs: Temp Pulse Resp BP Pulse Ox 97.6 F 59 L 20 146/80 H 96 01/14/18 16:00 01/14/18 16:00 01/14/18 16:00 01/14/18 16:00 01/14/18 16:00 Intake & Output 01/13/18 01/14/18 01/15/18 06:59 06:59 06:59 Intake Total 949 469 355 Output Total 1800 1800 400 Balance -851 -1331 -45 Weight 118.9 kg 119.6 kg General appearance: PRESENT: cooperative, mild distress Head exam: PRESENT: atraumatic, normocephalic Eye exam: PRESENT: EOMI. ABSENT: conjunctival injection, scleral icterus Ear exam: PRESENT: normal external ear exam Mouth exam: PRESENT: tongue midline Respiratory exam: PRESENT: decreased breath sounds, rales, unlabored. ABSENT: rhonchi, wheezes Cardiovascular exam: PRESENT: RRR Pulses: PRESENT: normal radial pulses GI/Abdominal exam: PRESENT: normal bowel sounds, soft. ABSENT: distended, firm , guarding, tenderness Rectal exam: PRESENT: deferred Gentrourinary exam: ABSENT: indwelling catheter Extremities exam: PRESENT: +1 edema Neurological exam: PRESENT: alert, awake, oriented to person, oriented to place , oriented to situation, CN II-XII grossly intact. ABSENT: aphasic Psychiatric exam: PRESENT: appropriate affect. ABSENT: anxious Skin exam: PRESENT: dry, intact, warm. ABSENT: rash Results Laboratory Results: 01/13/18 03:58 01/14/18 04:10 01/14/18 04:10 Sodium 143.1 Potassium 4.7 Chloride 96 L Carbon Dioxide 39 H Anion Gap 8 BUN 26 H Creatinine 1.39 H Est GFR ( Amer) > 60 Est GFR (Non-Af Amer) 50 L Glucose 104 Calcium 8.7 Magnesium 1.9 01/10/18 01/10/18 01/10/18 02:05 08:01 14:40 Troponin I 0.028 0.028 0.028 Impressions: Cervical Spine CT 01/09/18 18:27 IMPRESSION: CHRONIC DEGENERATIVE CHANGES. NO ACUTE FINDINGS. Left pleural effusion. Head CT 01/09/18 18:27 IMPRESSION: CHRONIC CHANGES OF ATROPHY AND MICROVASCULAR ISCHEMIA. NO ACUTE PROCESS. EVIDENCE OF ACUTE STROKE: NO. Thoracic Spine X-Ray 01/09/18 18:35 IMPRESSION: Diffuse degenerative changes. No acute fracture. Chest CT 01/11/18 00:00 IMPRESSION: Moderate left subpulmonic effusion between the left hemidiaphragm and left lower lobe. Consolidation and collapse left lower lobe. Stable cardiomegaly, stable trace right pleural effusion Mild thickened interlobular septa likely related to mild interstitial edema Chest X-Ray 01/11/18 00:00 IMPRESSION: Trace right pleural effusion, suspect small left pleural effusion. Left effusion is smaller than on chest films 01/09/2018 and 12/26/2017 Left basilar consolidation atelectasis versus pneumonia. Cardiomegaly with pacemaker/ defibrillator. Old CABG. Assessment & Plan - Diagnosis (1) Pleural effusion, left Is this a current diagnosis for this admission?: Yes Plan: Patient's respiratory status he reports is back to normal. Yesterday we decided against thoracentesis due to the size of the pleural effusion and also due to the fact that he is not symptomatic. He has undergone thoracentesis recently several times since his CABG due to this effusion. It will overall need to be watched closely. Hope fully he will have continued improvement with continued diuresis. (2) Acute and chronic respiratory failure Qualifiers: Respiratory failure complication: hypoxia and hypercapnia Qualified Code(s) : J96.21 - Acute and chronic respiratory failure with hypoxia; J96.22 - Acute and chronic respiratory failure with hypercapnia; J96.22 - Acute and chronic respiratory failure with hypercapnia; J96.22 - Acute and chronic respiratory failure with hypercapnia Is this a current diagnosis for this admission?: Yes Plan: We will continue diuresis and other current respiratory therapies. He is feeling back to baseline. No changes to be made today. (3) Atrial flutter Is this a current diagnosis for this admission?: Yes Plan: Stable on his antiarrhythmic. Eliquis has been restarted. (4) Acute back pain Is this a current diagnosis for this admission?: Yes Plan: Patient today is complaining of upper right back pain. He has not been asking for his methocarbamol and so we will start with that. On exam there is really no point tenderness to palpation and this could be a muscle spasm. If the methocarbamol is ineffective will expand workup and reevaluate. (5) CHF exacerbation Qualifiers: Heart failure type: combined systolic and diastolic Qualified Code(s): I50.43 - Acute on chronic combined systolic (congestive) and diastolic ( congestive) heart failure Is this a current diagnosis for this admission?: Yes Plan: Improving symptomatically. Diuresis was on hold yesterday secondary to elevated BUN and creatinine. Face Man started torsemide today. Will probably restart Lasix tomorrow. Could consider Lasix drip as well. (6) Chronic anticoagulation Is this a current diagnosis for this admission?: Yes Plan: Continue Eliquis, no active bleeding, no complications. (7) Opiate dependence, continuous Is this a current diagnosis for this admission?: Yes Plan: Patient has chronic back pain and is on opiate as prescribed by his primary care doctor. This will continue. He also takes methocarbamol for muscle spasm. (8) Syncope Is this a current diagnosis for this admission?: Yes Plan: No further episodes. Continue to monitor. (9) Anemia Qualifiers: Qualified Code(s): D64.9 - Anemia, unspecified Is this a current diagnosis for this admission?: Yes Plan: Patient has a stable hemoglobin today. We will continue to monitor. No sign of active bleeding. - Time Time Spent with patient: 25-34 minutes Medications reviewed and adjusted accordingly: Yes - Inpatient Certification Based on my medical assessment, after consideration of the patient's comorbidities, presenting symptoms, or acuity I expect that the services needed warrant INPATIENT care.: Yes I certify that my determination is in accordance with my understanding of Medicare's requirements for reasonable and necessary INPATIENT services [42 CFR 412.3e].: Yes Medical Necessity: Need for Pain Control, Risk of Complication if Not Cared For in Hospital
[2018-01-14 17:35] LABS: CREATINE KINASE MB 0.94 ng/mL (<4.55)
[2018-01-14 17:37] LABS: TROPONIN I < 0.012 ng/mL
--- NOTE | 2018-01-14 21:51 | EKG REPORT ---
SEVERITY:- ABNORMAL ECG - ATRIAL-VENTRICULAR DUAL-PACED COMPLEXES : Confirmed by: Farzana Still 14-Jan-2018 21:51:05
[2018-01-14 23:39] LABS: CREATINE KINASE MB 1.08 ng/mL (<4.55); TROPONIN I 0.016 ng/mL
[2018-01-15 05:40] LABS: HEMATOCRIT 27.7 % (37.9-51.0); HEMOGLOBIN 9.2 g/dL (13.5-17.0); MEAN CORPUSCULAR HEMOGLOBIN 29.2 pg (27.0-33.4); MEAN CORPUSCULAR HGB CONC 33.1 g/dL (32.0-36.0); MEAN CORPUSCULAR VOLUME 88 fl (80-97); PLATELET COUNT 162 10^3/uL (150-450); RED BLOOD COUNT 3.14 10^6/uL (4.35-5.55); RED CELL DISTRIBUTION WIDTH 16.6 % (11.5-14.0); WHITE BLOOD COUNT 4.6 10^3/uL (4.0-10.5)
[2018-01-15 06:10] LABS: ANION GAP 7 (5-19); BLOOD UREA NITROGEN 21 mg/dL (7-20); CALCIUM 8.7 mg/dL (8.4-10.2); CARBON DIOXIDE 39 mmol/L (22-30); CHLORIDE 98 mmol/L (98-107); GLUCOSE 89 mg/dL (75-110); POTASSIUM 4.6 mmol/L (3.6-5.0); SODIUM 143.5 mmol/L (137-145)
[2018-01-15 06:22] LABS: CREATINE KINASE MB 1.01 ng/mL (<4.55); TROPONIN I 0.013 ng/mL
[2018-01-15] MEDS: OXYCODONE HCL IR 5 MG TABLET PO PRN ×3 (06:45→19:32)
[2018-01-15] MEDS: OXYCODONE-ACETAMINOPHEN 5-325 MG TABLET PO PRN ×3 (06:46→19:32)
[2018-01-15] MEDS: LANSOPRAZOLE 15 MG TAB.RAP.DR PO SCH (09:26)
[2018-01-15] MEDS: ASPIRIN 81 MG TABLET, ENT COATED PO SCH (09:27)
[2018-01-15] MEDS: DOCUSATE SODIUM 100 MG CAPSULE PO SCH (09:27)
[2018-01-15] MEDS: APIXABAN 5 MG TABLET PO SCH ×2 (09:27→18:33)
[2018-01-15] MEDS: SERTRALINE HCL 50 MG TABLET PO SCH (09:27)
[2018-01-15] MEDS: POTASSIUM CHLORIDE 10 MEQ CAPSULE.ER PO SCH (09:27)
[2018-01-15] MEDS: AMIODARONE HCL 200 MG TABLET PO SCH (09:27)
[2018-01-15] MEDS: ATORVASTATIN CALCIUM 40 MG TABLET PO SCH (09:27)
[2018-01-15] MEDS ORDERED: TORSEMIDE 20 MG TABLET PO SCH (10:00)
--- NOTE | 2018-01-15 13:57 | PDOC PROGRESS REPORT ---
Subjective Progress Note for:: 01/15/18 Subjective:: Patient seems to be doing better with gradual improvement. Patient's breathing is much more improved. Currently sitting up by the side of bed. Pt is denying any chest arm or neck discomfort. Patient denying any PND, orthopnea. Patient denied any sustained palpitations, dizziness, syncope, near syncope. Patient denying any fever chills. Patient denying any other significant discomfort. Patient is maintaining sinus rhythm. Review of systems: Rest review of systems negative. Medications: Medications have been reviewed. Reason For Visit: HEART FAILURE Physical Exam Vital Signs: Temp Pulse Resp BP Pulse Ox 97.9 F 61 20 117/47 L 97 01/15/18 11:06 01/15/18 11:06 01/15/18 11:06 01/15/18 11:06 01/15/18 12:53 Intake & Output 01/14/18 01/15/18 01/16/18 06:59 06:59 06:59 Intake Total 469 824 Output Total 1800 1200 Balance -1331 -376 Weight 119.6 kg 119.2 kg Exam: GENERAL: well-nourished and in no acute distress. Alert and oriented x3 HEAD: Atraumatic, normocephalic. EYES: Pupils equal round and reactive to light, extraocular movements intact, sclera anicteric, conjunctiva are normal. ENT: TMs normal, nares patent, oropharynx clear without exudates. Moist mucous membranes. No oral ulcerations or bleeding gums noted NECK: supple without lymphadenopathy. Trachea is central. No cervical or axillary lymphadenopathy noted. Carotids are 2+, JVD WNL LUNGS: Respiration seems nonlabored, no significant accessory muscle action noted. Bibasilar fine crackles with diminished breath sounds left base. No wheezes rales or rhonchi noted. Left-sided dullness noted on percussion. CHEST: Palpation of the chest wall shows no significant chest wall tenderness. HEART: [place] [employer], No PSH, 1/6 BARBI aortic area, 1/6 richards systolic murmur mitral area, no rubs, no gallops. ABDOMEN: Soft, no significant tenderness appreciated, normoactive bowel sounds. No guarding, no rebound. No rigidity noted . No masses appreciated. EXTREMITIES: Pedal pulses are 1-2+, no calf tenderness noted. No clubbing or cyanosis. negative pedal edema noted NEUROLOGICAL: Focused neurological exam showed no significant neurologic deficit. Normal speech, no focal weakness appreciated. PSYCH: Normal mood, normal affect. Judgment and insight within normal limits. SKIN: No significant ecchymosis, skin is noted to be warm. MUSCULOSKELETAL EXAM: No significant acute joint swelling noted. Results Laboratory Results: 01/15/18 05:22 01/15/18 05:22 01/15/18 01/15/18 05:22 05:22 WBC 4.6 RBC 3.14 L Hgb 9.2 L Hct 27.7 L MCV 88 MCH 29.2 MCHC 33.1 RDW 16.6 H Plt Count 162 Sodium 143.5 Potassium 4.6 Chloride 98 Carbon Dioxide 39 H Anion Gap 7 BUN 21 H Creatinine 0.96 Est GFR ( Amer) > 60 Est GFR (Non-Af Amer) > 60 Glucose 89 Calcium 8.7 Magnesium 2.0 01/10/18 01/10/18 01/10/18 02:05 08:01 14:40 Creatine Kinase CK-MB (CK-2) Troponin I 0.028 0.028 0.028 01/14/18 01/14/18 01/14/18 16:30 16:30 23:10 Creatine Kinase 22 L 21 L CK-MB (CK-2) 0.94 Troponin I < 0.012 01/14/18 01/15/18 01/15/18 23:10 05:22 05:22 Creatine Kinase 23 L CK-MB (CK-2) 1.08 1.01 Troponin I 0.016 0.013 EKG Comments: Telemetry shows sinus rhythm without any sustained tachycardia or bradycardia Impressions: Cervical Spine CT 01/09/18 18:27 IMPRESSION: CHRONIC DEGENERATIVE CHANGES. NO ACUTE FINDINGS. Left pleural effusion. Head CT 01/09/18 18:27 IMPRESSION: CHRONIC CHANGES OF ATROPHY AND MICROVASCULAR ISCHEMIA. NO ACUTE PROCESS. EVIDENCE OF ACUTE STROKE: NO. Thoracic Spine X-Ray 01/09/18 18:35 IMPRESSION: Diffuse degenerative changes. No acute fracture. Chest CT 01/11/18 00:00 IMPRESSION: Moderate left subpulmonic effusion between the left hemidiaphragm and left lower lobe. Consolidation and collapse left lower lobe. Stable cardiomegaly, stable trace right pleural effusion Mild thickened interlobular septa likely related to mild interstitial edema Chest X-Ray 01/11/18 00:00 IMPRESSION: Trace right pleural effusion, suspect small left pleural effusion. Left effusion is smaller than on chest films 01/09/2018 and 12/26/2017 Left basilar consolidation atelectasis versus pneumonia. Cardiomegaly with pacemaker/ defibrillator. Old CABG. Assessment & Plan - Diagnosis (1) Acute on chronic diastolic (congestive) heart failure Is this a current diagnosis for this admission?: Yes (2) Acute and chronic respiratory failure Qualifiers: Respiratory failure complication: hypoxia and hypercapnia Qualified Code(s) : J96.21 - Acute and chronic respiratory failure with hypoxia; J96.22 - Acute and chronic respiratory failure with hypercapnia; J96.22 - Acute and chronic respiratory failure with hypercapnia; J96.22 - Acute and chronic respiratory failure with hypercapnia Is this a current diagnosis for this admission?: Yes (3) COPD (chronic obstructive pulmonary disease) Qualifiers: Chronic bronchitis type: unspecified Is this a current diagnosis for this admission?: Yes (4) Obstructive sleep apnea Is this a current diagnosis for this admission?: Yes (5) Pleural effusion, left Is this a current diagnosis for this admission?: Yes (6) History of atrial fibrillation Is this a current diagnosis for this admission?: Yes - Notes Notes: Acute on chronic CHF, predominantly diastolic but I suspect significant contribution from right heart failure. Previous 2D echocardiogram reviewed and was technically difficult. Recommend starting patient on torsemide 20 mg p.o. daily. Monitor intake output, daily weight.. Acute on chronic respiratory failure: This is based on COPD, obesity hypoventilation syndrome, obstructive sleep apnea. Patient will benefit from nightly intermittent positive pressure ventilation and also was taking naps. COPD: Patient today claims that he had quit smoking several years ago. Continue bronchodilator and other therapy as needed. Obstructive sleep apnea: Patient will benefit from intermittent and nightly CPAP /BiPAP therapy. Left pleural effusion: Patient also has a smaller right pleural effusion. [place] to be related to CHF. Recommend continuing diuresis. However if pleural effusion persist may consider thoracentesis just for diagnostic purposes. I am told that patient had previous thoracentesis and the fluid was transudate. Patient has a history of atrial fibrillation: Currently on amiodarone therapy. Patient currently is started on chronic anticoagulation with Eliquis. Continue current regimen. On discharge patient can follow-up with Dr. Still for both treatment of his cardiac status and also for sleep apnea syndrome if he is agreeable. - Time Time with patient: Greater than 35 minutes - CODE STATUS was discussed, patient remains full code. Surrogate decision-maker unchanged. Multiple medical problems were addressed. More than 50% of the time spent coordinating care, discussing management plans with involved caregivers. Management plans discussed with involved personnels. Medical decision making was of moderate to high complexity, patient's has multiple comorbidities. Medications reviewed and adjusted accordingly: Yes
--- NOTE | 2018-01-15 14:45 | PDOC PROGRESS REPORT ---
Subjective Progress Note for:: 01/15/18 Subjective:: Patient states that he is feeling weak. His ambulatory status at baseline is bad, he walks with his son's help, he feels weaker and less stable than that. He continues to have right upper lateral back pain which is helped by the methocarbamol. His episode of chest pain resolved yesterday with nitroglycerin. He is eating and drinking without difficulty. Urinating without difficulty. No constipation or diarrhea. His legs and ankles are little bit more swollen than his norm. His breathing feels back to normal. Reason For Visit: HEART FAILURE Physical Exam Vital Signs: Temp Pulse Resp BP Pulse Ox 97.9 F 61 20 117/47 L 97 01/15/18 11:06 01/15/18 11:06 01/15/18 11:06 01/15/18 11:06 01/15/18 12:53 Intake & Output 01/14/18 01/15/18 01/16/18 06:59 06:59 06:59 Intake Total 469 824 Output Total 1800 1200 Balance -1331 -376 Weight 119.6 kg 119.2 kg General appearance: PRESENT: no acute distress, cooperative, disheveled, morbidly obese Head exam: PRESENT: atraumatic, normocephalic Eye exam: ABSENT: conjunctival injection, scleral icterus Mouth exam: PRESENT: moist, tongue midline Respiratory exam: PRESENT: rales, unlabored. ABSENT: rhonchi, wheezes Cardiovascular exam: PRESENT: RRR, systolic murmur Pulses: PRESENT: normal radial pulses GI/Abdominal exam: PRESENT: normal bowel sounds, soft. ABSENT: distended, guarding, tenderness Rectal exam: PRESENT: deferred Extremities exam: PRESENT: +1 edema Neurological exam: PRESENT: alert, awake, oriented to person, oriented to place , oriented to situation, CN II-XII grossly intact Psychiatric exam: PRESENT: appropriate affect. ABSENT: anxious Skin exam: PRESENT: dry, warm, other - Mild distal bilateral leg erythema. Results Laboratory Results: 01/15/18 05:22 01/15/18 05:22 01/15/18 01/15/18 05:22 05:22 WBC 4.6 RBC 3.14 L Hgb 9.2 L Hct 27.7 L MCV 88 MCH 29.2 MCHC 33.1 RDW 16.6 H Plt Count 162 Sodium 143.5 Potassium 4.6 Chloride 98 Carbon Dioxide 39 H Anion Gap 7 BUN 21 H Creatinine 0.96 Est GFR ( Amer) > 60 Est GFR (Non-Af Amer) > 60 Glucose 89 Calcium 8.7 Magnesium 2.0 01/10/18 01/10/18 01/10/18 02:05 08:01 14:40 Creatine Kinase CK-MB (CK-2) Troponin I 0.028 0.028 0.028 01/14/18 01/14/18 01/14/18 16:30 16:30 23:10 Creatine Kinase 22 L 21 L CK-MB (CK-2) 0.94 Troponin I < 0.012 01/14/18 01/15/18 01/15/18 23:10 05:22 05:22 Creatine Kinase 23 L CK-MB (CK-2) 1.08 1.01 Troponin I 0.016 0.013 Impressions: Cervical Spine CT 01/09/18 18:27 IMPRESSION: CHRONIC DEGENERATIVE CHANGES. NO ACUTE FINDINGS. Left pleural effusion. Head CT 01/09/18 18:27 IMPRESSION: CHRONIC CHANGES OF ATROPHY AND MICROVASCULAR ISCHEMIA. NO ACUTE PROCESS. EVIDENCE OF ACUTE STROKE: NO. Thoracic Spine X-Ray 01/09/18 18:35 IMPRESSION: Diffuse degenerative changes. No acute fracture. Chest CT 01/11/18 00:00 IMPRESSION: Moderate left subpulmonic effusion between the left hemidiaphragm and left lower lobe. Consolidation and collapse left lower lobe. Stable cardiomegaly, stable trace right pleural effusion Mild thickened interlobular septa likely related to mild interstitial edema Chest X-Ray 01/11/18 00:00 IMPRESSION: Trace right pleural effusion, suspect small left pleural effusion. Left effusion is smaller than on chest films 01/09/2018 and 12/26/2017 Left basilar consolidation atelectasis versus pneumonia. Cardiomegaly with pacemaker/ defibrillator. Old CABG. Assessment & Plan - Diagnosis (1) Coronary artery disease Qualifiers: Coronary Disease-Associated Artery/Lesion type: [place] artery Is this a current diagnosis for this admission?: Yes Plan: Patient has known coronary disease. He underwent CABG within the last few months. He had an episode of chest pain yesterday that was resolved with nitro paste which is now been removed. He remains chest pain-free. His troponin had a very slight elevation and then trended downward. EKG did not show acute changes. Will continue on telemetry and assure, upon discharge, the patient has follow-up with his performance improvement consultant. (2) Pleural effusion, left Is this a current diagnosis for this admission?: Yes Plan: Patient has had recent thoracentesis which showed transudate of fluid. This pleural effusion is likely related to heart failure and his breathing is back to normal. We have decided to forego thoracentesis for now. Continue with diuresis and reconsider thoracentesis if needed. (3) Acute and chronic respiratory failure Qualifiers: Respiratory failure complication: hypoxia and hypercapnia Qualified Code(s) : J96.21 - Acute and chronic respiratory failure with hypoxia; J96.22 - Acute and chronic respiratory failure with hypercapnia; J96.22 - Acute and chronic respiratory failure with hypercapnia; J96.22 - Acute and chronic respiratory failure with hypercapnia Is this a current diagnosis for this admission?: Yes Plan: Patient's respiratory status is back to baseline. This was related to acute congestive heart failure with preserved ejection fraction. (4) Atrial flutter Is this a current diagnosis for this admission?: Yes Plan: Patient will continue on his amiodarone and Eliquis. A flutter is without complication currently. Continue telemetry. (5) Acute back pain Is this a current diagnosis for this admission?: Yes Plan: This has improved with methocarbamol which she will continue as needed. He is also taking his chronic oxycodone for his chronic low back pain. (6) CHF exacerbation Qualifiers: Heart failure type: combined systolic and diastolic Qualified Code(s): I50.43 - Acute on chronic combined systolic (congestive) and diastolic ( congestive) heart failure Is this a current diagnosis for this admission?: Yes Plan: Patient has diastolic failure. His exacerbation is not entirely resolved. He had evidence of a contraction alkalosis and we held his diuresis for a few days. Dr. Still started him on torsemide which will be increased to 20 mg daily tomorrow. Renal o function is normal. (7) Chronic anticoagulation Is this a current diagnosis for this admission?: Yes Plan: Without complication, continue Eliquis. (8) Opiate dependence, continuous Is this a current diagnosis for this admission?: Yes Plan: Patient's primary care doctor prescribes opiates for his low back pain. (9) Syncope Is this a current diagnosis for this admission?: Yes Plan: No further episodes while in the hospital. On admission, based on his admission story, admitting provider thought that this was secondary to respiratory status. No focal neurologic deficits on exam. (10) Anemia Is this a current diagnosis for this admission?: Yes Plan: Normocytic. Probably anemia of chronic disease. Has been stable.
[2018-01-16] MEDS: POTASSIUM CHLORIDE 10 MEQ CAPSULE.ER PO SCH ×3 (01:41→21:53)
[2018-01-16] MEDS: OXYCODONE-ACETAMINOPHEN 5-325 MG TABLET PO PRN ×4 (01:41→21:53)
[2018-01-16] MEDS: OXYCODONE HCL IR 5 MG TABLET PO PRN ×4 (01:41→21:56)
[2018-01-16 05:28] LABS: ANION GAP 9 (5-19); BLOOD UREA NITROGEN 25 mg/dL (7-20); CALCIUM 8.8 mg/dL (8.4-10.2); CARBON DIOXIDE 36 mmol/L (22-30); CHLORIDE 100 mmol/L (98-107); GLUCOSE 111 mg/dL (75-110); SODIUM 144.5 mmol/L (137-145)
[2018-01-16] MEDS: APIXABAN 5 MG TABLET PO SCH ×2 (10:39→17:39)
[2018-01-16] MEDS: LANSOPRAZOLE 15 MG TAB.RAP.DR PO SCH (10:39)
[2018-01-16] MEDS: AMIODARONE HCL 200 MG TABLET PO SCH (10:39)
[2018-01-16] MEDS: ASPIRIN 81 MG TABLET, ENT COATED PO SCH (10:39)
[2018-01-16] MEDS: DOCUSATE SODIUM 100 MG CAPSULE PO SCH (10:40)
[2018-01-16] MEDS: TORSEMIDE 20 MG TABLET PO SCH (10:40)
[2018-01-16] MEDS: ATORVASTATIN CALCIUM 40 MG TABLET PO SCH (10:40)
[2018-01-16] MEDS: SERTRALINE HCL 50 MG TABLET PO SCH (10:40)
--- NOTE | 2018-01-16 11:21 | PDOC PROGRESS REPORT ---
Subjective Progress Note for:: 01/16/18 Subjective:: Slowly improving, but feels breathing is still "rough." No chest pain or palpitations, no fever or chills. Denies nausea or vomiting. Lower extremity swelling improving. Denies orthopnea or PND. Reason For Visit: HEART FAILURE Physical Exam Vital Signs: Temp Pulse Resp BP Pulse Ox 98.0 F 59 L 19 114/55 L 97 01/16/18 03:47 01/16/18 03:47 01/16/18 03:47 01/16/18 03:47 01/16/18 03:47 Intake & Output 01/15/18 01/16/18 01/17/18 06:59 06:59 06:59 Intake Total 824 839 Output Total 1200 1100 Balance -376 -261 Weight 119.2 kg 120.3 kg General appearance: PRESENT: no acute distress, cooperative, disheveled, morbidly obese Head exam: PRESENT: atraumatic, normocephalic Eye exam: ABSENT: conjunctival injection, scleral icterus Mouth exam: PRESENT: moist, tongue midline Respiratory exam: PRESENT: rales, unlabored. ABSENT: rhonchi, wheezes Cardiovascular exam: PRESENT: RRR, systolic murmur Pulses: PRESENT: normal radial pulses GI/Abdominal exam: PRESENT: normal bowel sounds, soft. ABSENT: distended, guarding, tenderness Rectal exam: PRESENT: deferred Extremities exam: PRESENT: +1 edema Neurological exam: PRESENT: alert, awake, oriented to person, oriented to place , oriented to situation, CN II-XII grossly intact Psychiatric exam: PRESENT: appropriate affect. ABSENT: anxious Skin exam: PRESENT: dry, warm, other - Mild distal bilateral leg erythema. Results Laboratory Results: 01/15/18 05:22 01/16/18 04:36 01/16/18 04:36 Sodium 144.5 Potassium 5.0 Chloride 100 Carbon Dioxide 36 H Anion Gap 9 BUN 25 H Creatinine 1.19 Est GFR ( Amer) > 60 Est GFR (Non-Af Amer) > 60 Glucose 111 H Calcium 8.8 Magnesium 2.0 01/10/18 01/10/18 01/10/18 02:05 08:01 14:40 Creatine Kinase CK-MB (CK-2) Troponin I 0.028 0.028 0.028 01/14/18 01/14/18 01/14/18 16:30 16:30 23:10 Creatine Kinase 22 L 21 L CK-MB (CK-2) 0.94 Troponin I < 0.012 01/14/18 01/15/18 01/15/18 23:10 05:22 05:22 Creatine Kinase 23 L CK-MB (CK-2) 1.08 1.01 Troponin I 0.016 0.013 Impressions: Cervical Spine CT 01/09/18 18:27 IMPRESSION: CHRONIC DEGENERATIVE CHANGES. NO ACUTE FINDINGS. Left pleural effusion. Head CT 01/09/18 18:27 IMPRESSION: CHRONIC CHANGES OF ATROPHY AND MICROVASCULAR ISCHEMIA. NO ACUTE PROCESS. EVIDENCE OF ACUTE STROKE: NO. Thoracic Spine X-Ray 01/09/18 18:35 IMPRESSION: Diffuse degenerative changes. No acute fracture. Chest CT 01/11/18 00:00 IMPRESSION: Moderate left subpulmonic effusion between the left hemidiaphragm and left lower lobe. Consolidation and collapse left lower lobe. Stable cardiomegaly, stable trace right pleural effusion Mild thickened interlobular septa likely related to mild interstitial edema Chest X-Ray 01/11/18 00:00 IMPRESSION: Trace right pleural effusion, suspect small left pleural effusion. Left effusion is smaller than on chest films 01/09/2018 and 12/26/2017 Left basilar consolidation atelectasis versus pneumonia. Cardiomegaly with pacemaker/ defibrillator. Old CABG. Assessment & Plan - Plan Summary Plan Summary: (1) Coronary artery disease Qualifiers: Coronary Disease-Associated Artery/Lesion type: mohe[place] artery Is this a current diagnosis for this admission?: Yes Plan: Patient has known coronary disease. He underwent CABG within the last few months. He had an episode of chest pain that was resolved with nitro paste which has now been removed. He remains chest pain-free. His troponin had a very slight elevation and then trended downward. EKG did not show acute changes. Will continue on telemetry. The patient has follow-up with his media specialist upon discharge. (2) Pleural effusion, left Is this a current diagnosis for this admission?: Yes Plan: Patient has had recent thoracentesis which showed transudate of fluid. This pleural effusion is likely related to heart failure and his breathing is back to normal. We have decided to forego thoracentesis for now. Continue with diuresis and reconsider thoracentesis if needed. (3) Acute and chronic respiratory failure Qualifiers: Respiratory failure complication: hypoxia and hypercapnia Qualified Code(s) : J96.21 - Acute and chronic respiratory failure with hypoxia; J96.22 - Acute and chronic respiratory failure with hypercapnia; J96.22 - Acute and chronic respiratory failure with hypercapnia; J96.22 - Acute and chronic respiratory failure with hypercapnia Is this a current diagnosis for this admission?: Yes Plan: Patient's respiratory status has improved. This was related to acute congestive heart failure with preserved ejection fraction. (4) Atrial flutter Is this a current diagnosis for this admission?: Yes Plan: Patient will continue on his amiodarone and Eliquis. A flutter is without complication currently. Continue telemetry. (5) Acute back pain Is this a current diagnosis for this admission?: Yes Plan: This has improved with methocarbamol which she will continue as needed. He is also taking his chronic oxycodone for his chronic low back pain. (6) CHF exacerbation Qualifiers: Heart failure type: combined systolic and diastolic Qualified Code(s): I50.43 - Acute on chronic combined systolic (congestive) and diastolic ( congestive) heart failure Is this a current diagnosis for this admission?: Yes Plan: Patient has diastolic failure. His exacerbation is not entirely resolved. He had evidence of a contraction alkalosis and we held his diuresis for a few days. Dr. Still started him on torsemide which will be increased to 20 mg daily today. Renal function is normal. (7) Chronic anticoagulation Is this a current diagnosis for this admission?: Yes Plan: Without complication, continue Eliquis. (8) Opiate dependence, continuous Is this a current diagnosis for this admission?: Yes Plan: Patient's primary care doctor prescribes opiates for his low back pain. (9) Syncope Is this a current diagnosis for this admission?: Yes Plan: No further episodes while in the hospital. On admission, based on his admission story, admitting provider thought that this was secondary to respiratory status. No focal neurologic deficits on exam. (10) Anemia Is this a current diagnosis for this admission?: Yes Plan: Normocytic. Probably anemia of chronic disease. Has been stable.
[2018-01-16] MEDS ORDERED: TRANEXAMIC ACID INJ/PF 1,000 MG/10 ML SDV IV ONE (15:00)
[2018-01-16] MEDS ORDERED: IBUPROFEN 800 MG in NORMAL SALINE 250 ML IV SCH (18:00)
--- NOTE | 2018-01-16 19:45 | PDOC PROGRESS REPORT ---
Subjective Progress Note for:: 01/16/18 Subjective:: Patient seems to be doing better with gradual improvement. Patient's breathing is much more improved. Currently sitting up by the side of bed. Pt is denying any chest arm or neck discomfort. Patient denying any PND, orthopnea. Patient denied any sustained palpitations, dizziness, syncope, near syncope. Patient denying any fever chills. Patient denying any other significant discomfort. Patient is maintaining sinus rhythm. Intermittent AV paced rhythm noted. Review of systems: Rest review of systems negative. Medications: Medications have been reviewed. Reason For Visit: HEART FAILURE Physical Exam Vital Signs: Temp Pulse Resp BP Pulse Ox 97.8 F 60 18 105/47 L 96 01/16/18 11:44 01/16/18 14:00 01/16/18 11:44 01/16/18 11:44 01/16/18 15:33 Intake & Output 01/15/18 01/16/18 01/17/18 06:59 06:59 06:59 Intake Total 582 932 7280 Output Total 1200 1100 800 Balance -376 -261 310 Weight 119.2 kg 120.3 kg Exam: GENERAL: well-nourished and in no acute distress. Alert and oriented x3 HEAD: Atraumatic, normocephalic. EYES: Pupils equal round and reactive to light, extraocular movements intact, sclera anicteric, conjunctiva are normal. ENT: TMs normal, nares patent, oropharynx clear without exudates. Moist mucous membranes. No oral ulcerations or bleeding gums noted NECK: supple without lymphadenopathy. Trachea is central. No cervical or axillary lymphadenopathy noted. Carotids are 2+, JVD WNL LUNGS: Respiration seems nonlabored, no significant accessory muscle action noted. Breath sounds clear to auscultation bilaterally and equal noted. No wheezes rales or rhonchi noted. Left basal dullness noted on percussion. CHEST: Palpation of the chest wall shows no significant chest wall tenderness. 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 ABDOMEN: Soft, no significant tenderness appreciated, normoactive bowel sounds. No guarding, no rebound. No rigidity noted . No masses appreciated. EXTREMITIES: Pedal pulses are 1-2+, no calf tenderness noted. No clubbing or cyanosis. negative pedal edema noted NEUROLOGICAL: Focused neurological exam showed no significant neurologic deficit. Normal speech, no focal weakness appreciated. PSYCH: Normal mood, normal affect. Judgment and insight within normal limits. SKIN: No significant ecchymosis, skin is noted to be warm. MUSCULOSKELETAL EXAM: No significant acute joint swelling noted. Results Laboratory Results: 01/15/18 05:22 01/16/18 04:36 01/16/18 04:36 Sodium 144.5 Potassium 5.0 Chloride 100 Carbon Dioxide 36 H Anion Gap 9 BUN 25 H Creatinine 1.19 Est GFR ( Amer) > 60 Est GFR (Non-Af Amer) > 60 Glucose 111 H Calcium 8.8 Magnesium 2.0 01/10/18 01/10/18 01/10/18 02:05 08:01 14:40 Creatine Kinase CK-MB (CK-2) Troponin I 0.028 0.028 0.028 01/14/18 01/14/18 01/14/18 16:30 16:30 23:10 Creatine Kinase 22 L 21 L CK-MB (CK-2) 0.94 Troponin I < 0.012 01/14/18 01/15/18 01/15/18 23:10 05:22 05:22 Creatine Kinase 23 L CK-MB (CK-2) 1.08 1.01 Troponin I 0.016 0.013 Impressions: Cervical Spine CT 01/09/18 18:27 IMPRESSION: CHRONIC DEGENERATIVE CHANGES. NO ACUTE FINDINGS. Left pleural effusion. Head CT 01/09/18 18:27 IMPRESSION: CHRONIC CHANGES OF ATROPHY AND MICROVASCULAR ISCHEMIA. NO ACUTE PROCESS. EVIDENCE OF ACUTE STROKE: NO. Thoracic Spine X-Ray 01/09/18 18:35 IMPRESSION: Diffuse degenerative changes. No acute fracture. Chest CT 01/11/18 00:00 IMPRESSION: Moderate left subpulmonic effusion between the left hemidiaphragm and left lower lobe. Consolidation and collapse left lower lobe. Stable cardiomegaly, stable trace right pleural effusion Mild thickened interlobular septa likely related to mild interstitial edema Chest X-Ray 01/11/18 00:00 IMPRESSION: Trace right pleural effusion, suspect small left pleural effusion. Left effusion is smaller than on chest films 01/09/2018 and 12/26/2017 Left basilar consolidation atelectasis versus pneumonia. Cardiomegaly with pacemaker/ defibrillator. Old CABG. Assessment & Plan - Diagnosis (1) Acute on chronic diastolic (congestive) heart failure Is this a current diagnosis for this admission?: Yes (2) Acute and chronic respiratory failure Qualifiers: Respiratory failure complication: hypoxia and hypercapnia Qualified Code(s) : J96.21 - Acute and chronic respiratory failure with hypoxia; J96.22 - Acute and chronic respiratory failure with hypercapnia; J96.22 - Acute and chronic respiratory failure with hypercapnia; J96.22 - Acute and chronic respiratory failure with hypercapnia Is this a current diagnosis for this admission?: Yes (3) COPD (chronic obstructive pulmonary disease) Qualifiers: Chronic bronchitis type: unspecified Is this a current diagnosis for this admission?: Yes (4) Obstructive sleep apnea Is this a current diagnosis for this admission?: Yes (5) Pleural effusion, left Is this a current diagnosis for this admission?: Yes (6) History of atrial fibrillation Is this a current diagnosis for this admission?: Yes - Notes Notes: Will order chest x-ray PA and lateral to monitor diuretic therapy and CHF management. Acute on chronic CHF, predominantly diastolic but I suspect significant contribution from right heart failure. Previous 2D echocardiogram reviewed and was technically difficult. Continue patient on torsemide 20 mg p.o. daily. Monitor intake output, daily weight. Periodic BNP and chest x-ray will be essential in following CHF management. Acute on chronic respiratory failure: This is based on COPD, obesity hypoventilation syndrome, obstructive sleep apnea. Patient will benefit from nightly intermittent positive pressure ventilation and also was taking naps. COPD: Patient today claims that he had quit smoking several years ago. Continue bronchodilator and other therapy as needed. Obstructive sleep apnea: Patient will benefit from intermittent and nightly CPAP /BiPAP therapy. Left pleural effusion: Patient also has a smaller right pleural effusion. Angela to be related to CHF. Recommend continuing diuresis. However if pleural effusion persist may consider thoracentesis just for diagnostic purposes. I am told that patient had previous thoracentesis and the fluid was transudate. Status post defibrillator placement: Patient and noted to have a normal functioning defibrillator on cardiac monitoring. Patient noted to have intermittent AV paced rhythm. Patient has a history of atrial fibrillation: Currently on amiodarone therapy. Patient currently is started on chronic anticoagulation with Eliquis. Continue current regimen. - Time Time with patient: Greater than 35 minutes - CODE STATUS was discussed, patient remains full code. Surrogate decision-maker unchanged. Multiple medical problems were addressed. More than 50% of the time spent coordinating care, discussing management plans with involved caregivers. Management plans discussed with involved personnels. Medical decision making was of moderate to high complexity, patient's has multiple comorbidities. Medications reviewed and adjusted accordingly: Yes
[2018-01-17] MEDS: OXYCODONE HCL IR 5 MG TABLET PO PRN ×4 (03:58→22:54)
[2018-01-17] MEDS: OXYCODONE-ACETAMINOPHEN 5-325 MG TABLET PO PRN ×4 (03:58→22:53)
[2018-01-17 04:26] LABS: ABSOLUTE EOSINOPHILS # (AUTO) 0.3 10^3/uL (0.0-0.6); ABSOLUTE LYMPHOCYTES (AUTO) 1.6 10^3/uL (0.5-4.7); ABSOLUTE MONOCYTES (AUTO) 0.5 10^3/uL (0.1-1.4); ABSOLUTE NEUT (AUTO) 2.5 10^3/uL (1.7-8.2); BASOPHILS % (AUTO) 0.8 % (0-2); EOSINOPHILS % (AUTO) 5.7 % (0-6); HEMATOCRIT 25.9 % (37.9-51.0); HEMOGLOBIN 8.6 g/dL (13.5-17.0); LYMPHOCYTES % (AUTO) 33.4 % (13-45); MEAN CORPUSCULAR HEMOGLOBIN 29.2 pg (27.0-33.4); MEAN CORPUSCULAR VOLUME 89 fl (80-97); MONOCYTES % (AUTO) 9.7 % (3-13); PLATELET COUNT 169 10^3/uL (150-450); RED BLOOD COUNT 2.93 10^6/uL (4.35-5.55); RED CELL DISTRIBUTION WIDTH 16.4 % (11.5-14.0); SEGMENTED NEUTROPHILS % (AUTO) 50.4 % (42-78); TOTAL CELLS COUNTED % (AUTO) 100 %; WHITE BLOOD COUNT 4.9 10^3/uL (4.0-10.5)
[2018-01-17 04:45] LABS: ANION GAP 10 (5-19); BLOOD UREA NITROGEN 29 mg/dL (7-20); CALCIUM 8.8 mg/dL (8.4-10.2); CARBON DIOXIDE 37 mmol/L (22-30); CHLORIDE 98 mmol/L (98-107); GLUCOSE 95 mg/dL (75-110); POTASSIUM 4.9 mmol/L (3.6-5.0); SODIUM 144.7 mmol/L (137-145)
[2018-01-17] MEDS: LANSOPRAZOLE 15 MG TAB.RAP.DR PO SCH (08:25)
[2018-01-17] MEDS ORDERED: ASPIRIN 81 MG TABLET, CHEWABLE PO SCH (10:00)
[2018-01-17] MEDS ORDERED: OXYCODONE HCL IR 5 MG TABLET ONE (10:08)
[2018-01-17] MEDS: DOCUSATE SODIUM 100 MG CAPSULE PO SCH (10:13)
[2018-01-17] MEDS: TORSEMIDE 20 MG TABLET PO SCH (10:13)
[2018-01-17] MEDS: ATORVASTATIN CALCIUM 40 MG TABLET PO SCH (10:14)
[2018-01-17] MEDS: ASPIRIN 81 MG TABLET, ENT COATED PO SCH (10:14)
[2018-01-17] MEDS: SERTRALINE HCL 50 MG TABLET PO SCH (10:14)
[2018-01-17] MEDS: APIXABAN 5 MG TABLET PO SCH ×2 (10:14→18:12)
[2018-01-17] MEDS: AMIODARONE HCL 200 MG TABLET PO SCH (10:14)
[2018-01-17] MEDS: POTASSIUM CHLORIDE 10 MEQ CAPSULE.ER PO SCH ×2 (10:16→22:53)
--- NOTE | 2018-01-17 11:37 | PDOC PROGRESS REPORT ---
Subjective Progress Note for:: 01/17/18 Subjective:: Patient seems to be doing better. Patient sitting at the side of bed comfortable.. Patient's breathing is much more improved. Currently sitting up by the side of bed. Pt is denying any chest arm or neck discomfort. Patient denying any PND, orthopnea. Patient denied any sustained palpitations, dizziness, syncope, near syncope. Patient denying any fever chills. Patient denying any other significant discomfort. Telemetry this morning shows AV paced rhythm noted. Review of systems: Rest review of systems negative. Medications: Medications have been reviewed. Reason For Visit: HEART FAILURE Physical Exam Vital Signs: Temp Pulse Resp BP Pulse Ox 97.6 F 60 16 143/66 H 100 01/17/18 03:22 01/17/18 07:00 01/17/18 03:22 01/17/18 03:22 01/17/18 03:22 Intake & Output 01/16/18 01/17/18 01/18/18 06:59 06:59 06:59 Intake Total 839 1238 Output Total 1100 2800 Balance -261 -1562 Weight 120.3 kg 121.8 kg Exam: GENERAL: well-nourished and in no acute distress. Alert and oriented x3 HEAD: Atraumatic, normocephalic. EYES: Pupils equal round and reactive to light, extraocular movements intact, sclera anicteric, conjunctiva are normal. ENT: TMs normal, nares patent, oropharynx clear without exudates. Moist mucous membranes. No oral ulcerations or bleeding gums noted NECK: supple without lymphadenopathy. Trachea is central. No cervical or axillary lymphadenopathy noted. Carotids are 2+, JVD WNL LUNGS: Respiration seems nonlabored, no significant accessory muscle action noted. Slight diminished breath sounds left base and left basal dullness noted. CHEST: Palpation of the chest wall shows no significant chest wall tenderness. 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 ABDOMEN: Soft, no significant tenderness appreciated, normoactive bowel sounds. No guarding, no rebound. No rigidity noted . No masses appreciated. EXTREMITIES: Pedal pulses are 1-2+, no calf tenderness noted. No clubbing or cyanosis. negative pedal edema noted NEUROLOGICAL: Focused neurological exam showed no significant neurologic deficit. Normal speech, no focal weakness appreciated. PSYCH: Normal mood, normal affect. Judgment and insight within normal limits. SKIN: No significant ecchymosis, skin is noted to be warm. MUSCULOSKELETAL EXAM: No significant acute joint swelling noted. Results Laboratory Results: 01/17/18 04:07 01/17/18 04:07 01/17/18 01/17/18 04:07 04:07 WBC 4.9 RBC 2.93 L Hgb 8.6 L Hct 25.9 L MCV 89 MCH 29.2 MCHC 33.0 RDW 16.4 H Plt Count 169 Seg Neutrophils % 50.4 Lymphocytes % 33.4 Monocytes % 9.7 Eosinophils % 5.7 Basophils % 0.8 Absolute Neutrophils 2.5 Absolute Lymphocytes 1.6 Absolute Monocytes 0.5 Absolute Eosinophils 0.3 Absolute Basophils 0.0 Sodium 144.7 Potassium 4.9 Chloride 98 Carbon Dioxide 37 H Anion Gap 10 BUN 29 H Creatinine 1.30 H Est GFR ( Amer) > 60 Est GFR (Non-Af Amer) 54 L Glucose 95 Calcium 8.8 01/10/18 01/10/18 01/10/18 02:05 08:01 14:40 Creatine Kinase CK-MB (CK-2) Troponin I 0.028 0.028 0.028 01/14/18 01/14/18 01/14/18 16:30 16:30 23:10 Creatine Kinase 22 L 21 L CK-MB (CK-2) 0.94 Troponin I < 0.012 01/14/18 01/15/18 01/15/18 23:10 05:22 05:22 Creatine Kinase 23 L CK-MB (CK-2) 1.08 1.01 Troponin I 0.016 0.013 EKG Comments: Telemetry shows AV paced rhythm. Impressions: Cervical Spine CT 01/09/18 18:27 IMPRESSION: CHRONIC DEGENERATIVE CHANGES. NO ACUTE FINDINGS. Left pleural effusion. Head CT 01/09/18 18:27 IMPRESSION: CHRONIC CHANGES OF ATROPHY AND MICROVASCULAR ISCHEMIA. NO ACUTE PROCESS. EVIDENCE OF ACUTE STROKE: NO. Thoracic Spine X-Ray 01/09/18 18:35 IMPRESSION: Diffuse degenerative changes. No acute fracture. Chest CT 01/11/18 00:00 IMPRESSION: Moderate left subpulmonic effusion between the left hemidiaphragm and left lower lobe. Consolidation and collapse left lower lobe. Stable cardiomegaly, stable trace right pleural effusion Mild thickened interlobular septa likely related to mild interstitial edema Chest X-Ray 01/11/18 00:00 IMPRESSION: Trace right pleural effusion, suspect small left pleural effusion. Left effusion is smaller than on chest films 01/09/2018 and 12/26/2017 Left basilar consolidation atelectasis versus pneumonia. Cardiomegaly with pacemaker/ defibrillator. Old CABG. Assessment & Plan - Diagnosis (1) Acute on chronic diastolic (congestive) heart failure Is this a current diagnosis for this admission?: Yes (2) Acute and chronic respiratory failure Qualifiers: Respiratory failure complication: hypoxia and hypercapnia Qualified Code(s) : J96.21 - Acute and chronic respiratory failure with hypoxia; J96.22 - Acute and chronic respiratory failure with hypercapnia; J96.22 - Acute and chronic respiratory failure with hypercapnia; J96.22 - Acute and chronic respiratory failure with hypercapnia Is this a current diagnosis for this admission?: Yes (3) COPD (chronic obstructive pulmonary disease) Qualifiers: Chronic bronchitis type: unspecified Is this a current diagnosis for this admission?: Yes (4) Obstructive sleep apnea Is this a current diagnosis for this admission?: Yes (5) Pleural effusion, left Is this a current diagnosis for this admission?: Yes (6) History of atrial fibrillation Is this a current diagnosis for this admission?: Yes - Notes Notes: Had forgotten to order a chest x-ray yesterday. Will go ahead and order one today. Recommend periodic chemistry panel and BNP level as well. Recommend obtaining one prior to discharge. Acute on chronic CHF, predominantly diastolic but I suspect significant contribution from right heart failure. Previous 2D echocardiogram reviewed and was technically difficult. Continue patient on torsemide 20 mg p.o. daily. Monitor intake output, daily weight. Periodic BNP and chest x-ray will be essential in following CHF management. Acute on chronic respiratory failure: This is based on COPD, obesity hypoventilation syndrome, obstructive sleep apnea. Patient will benefit from nightly intermittent positive pressure ventilation and also was taking naps. COPD: Patient today claims that he had quit smoking several years ago. Continue bronchodilator and other therapy as needed. Obstructive sleep apnea: Patient will benefit from intermittent and nightly CPAP /BiPAP therapy. Left pleural effusion: Patient also has a smaller right pleural effusion. [place] to be related to CHF. Recommend continuing diuresis. However if pleural effusion persist may consider thoracentesis just for diagnostic purposes. I am told that patient had previous thoracentesis and the fluid was transudate. Status post defibrillator placement: Patient and noted to have a normal functioning defibrillator on cardiac monitoring. Patient noted to have AV paced rhythm. Patient has a history of atrial fibrillation: Currently on amiodarone therapy. Patient currently is started on chronic anticoagulation with Eliquis. Continue current regimen. - Time Time with patient: Greater than 35 minutes - CODE STATUS was discussed, patient remains full code. Surrogate decision-maker unchanged. Multiple medical problems were addressed. More than 50% of the time spent coordinating care, discussing management plans with involved caregivers. Management plans discussed with involved personnels. Medical decision making was of moderate to high complexity, patient's has multiple comorbidities. Medications reviewed and adjusted accordingly: Yes
--- NOTE | 2018-01-17 14:50 | PDOC PROGRESS REPORT ---
Subjective Progress Note for:: 01/17/18 Subjective:: No adverse events overnight. No new complaints. He is a bit hard of hearing and is a terrible historian. He has been eating and drinking without difficulty. He is not exactly sure what all is going on. Reason For Visit: HEART FAILURE Physical Exam Vital Signs: Temp Pulse Resp BP Pulse Ox 97.7 F 60 18 107/52 L 100 01/17/18 11:15 01/17/18 11:15 01/17/18 11:15 01/17/18 11:15 01/17/18 11:15 Intake & Output 01/16/18 01/17/18 01/18/18 06:59 06:59 06:59 Intake Total 839 1238 Output Total 1100 2800 Balance -261 -1562 Weight 120.3 kg 121.8 kg General appearance: PRESENT: no acute distress, cooperative, disheveled, hard of hearing, morbidly obese Teeth exam: PRESENT: poor dentation Neck exam: ABSENT: carotid bruit, JVD, tenderness Respiratory exam: PRESENT: decreased breath sounds - Left base, unlabored. ABSENT: accessory muscle use, crackles, rhonchi, wheezes Cardiovascular exam: PRESENT: RRR, systolic murmur. ABSENT: tachycardia GI/Abdominal exam: ABSENT: guarding, mass, normal bowel sounds, soft, tenderness Extremities exam: PRESENT: pedal edema, +2 edema - Bilateral ankles Musculoskeletal exam: ABSENT: deformity Neurological exam: PRESENT: alert, awake, oriented to person, oriented to place Results Laboratory Results: 01/17/18 04:07 01/17/18 04:07 01/17/18 01/17/18 04:07 04:07 WBC 4.9 RBC 2.93 L Hgb 8.6 L Hct 25.9 L MCV 89 MCH 29.2 MCHC 33.0 RDW 16.4 H Plt Count 169 Seg Neutrophils % 50.4 Lymphocytes % 33.4 Monocytes % 9.7 Eosinophils % 5.7 Basophils % 0.8 Absolute Neutrophils 2.5 Absolute Lymphocytes 1.6 Absolute Monocytes 0.5 Absolute Eosinophils 0.3 Absolute Basophils 0.0 Sodium 144.7 Potassium 4.9 Chloride 98 Carbon Dioxide 37 H Anion Gap 10 BUN 29 H Creatinine 1.30 H Est GFR ( Amer) > 60 Est GFR (Non-Af Amer) 54 L Glucose 95 Calcium 8.8 01/10/18 01/10/18 01/10/18 02:05 08:01 14:40 Creatine Kinase CK-MB (CK-2) Troponin I 0.028 0.028 0.028 NT-Pro-B Natriuret Pep 01/14/18 01/14/18 01/14/18 16:30 16:30 23:10 Creatine Kinase 22 L 21 L CK-MB (CK-2) 0.94 Troponin I < 0.012 NT-Pro-B Natriuret Pep 01/14/18 01/15/18 01/15/18 23:10 05:22 05:22 Creatine Kinase 23 L CK-MB (CK-2) 1.08 1.01 Troponin I 0.016 0.013 NT-Pro-B Natriuret Pep 01/17/18 04:07 Creatine Kinase CK-MB (CK-2) Troponin I NT-Pro-B Natriuret Pep 2750 H Impressions: Cervical Spine CT 01/09/18 18:27 IMPRESSION: CHRONIC DEGENERATIVE CHANGES. NO ACUTE FINDINGS. Left pleural effusion. Head CT 01/09/18 18:27 IMPRESSION: CHRONIC CHANGES OF ATROPHY AND MICROVASCULAR ISCHEMIA. NO ACUTE PROCESS. EVIDENCE OF ACUTE STROKE: NO. Thoracic Spine X-Ray 01/09/18 18:35 IMPRESSION: Diffuse degenerative changes. No acute fracture. Chest CT 01/11/18 00:00 IMPRESSION: Moderate left subpulmonic effusion between the left hemidiaphragm and left lower lobe. Consolidation and collapse left lower lobe. Stable cardiomegaly, stable trace right pleural effusion Mild thickened interlobular septa likely related to mild interstitial edema Chest X-Ray 01/11/18 00:00 IMPRESSION: Trace right pleural effusion, suspect small left pleural effusion. Left effusion is smaller than on chest films 01/09/2018 and 12/26/2017 Left basilar consolidation atelectasis versus pneumonia. Cardiomegaly with pacemaker/ defibrillator. 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 Assessment & Plan - Diagnosis (1) Acute on chronic diastolic (congestive) heart failure Is this a current diagnosis for this admission?: Yes Plan: Cardiology consulted. Responding to diuresis. Had to put that on hold today because of the rise in his creatinine. He needs more fluid off of him at this point. (2) Pleural effusion, left Is this a current diagnosis for this admission?: Yes Plan: Diuresis and otherwise conservative management for now
--- NOTE | 2018-01-17 15:32 | RADIOLOGY REPORT (SQ) ---
EXAM DESCRIPTION: CHEST 2 VIEWS COMPLETED DATE/TIME: 01/17/2018 3:08 pm REASON FOR STUDY: followup CHF COMPARISON: 01/11/2018 NUMBER OF VIEWS: Two view TECHNIQUE: Frontal and lateral radiographic images of the chest acquired. LIMITATIONS: None. FINDINGS: LUNGS AND PLEURA: Bilateral pleural effusions, left greater than right. There is associat ed interstitial edema in the lower lungs. MEDIASTINUM AND HILAR STRUCTURES: Stable heart size and mediastinal structures. HEART AND VASCULAR STRUCTURES: Stable appearance. SUPPORT DEVICES: Appropriate location without change. BONES: No acute findings. OTHER: No other significant finding. IMPRESSION: Congestive heart failure. No significant change. TECHNICAL DOCUMENTATION: JOB ID: [id number] [employer]- All Rights Reserved Reading location - IP/workstation name: [email or web address]
[2018-01-17 15:59] LABS: ANION GAP 7 (5-19); BLOOD UREA NITROGEN 30 mg/dL (7-20); CALCIUM 8.9 mg/dL (8.4-10.2); CARBON DIOXIDE 39 mmol/L (22-30); CHLORIDE 99 mmol/L (98-107); GLUCOSE 120 mg/dL (75-110); POTASSIUM 4.9 mmol/L (3.6-5.0)
[2018-01-18] MEDS: OXYCODONE HCL IR 5 MG TABLET PO PRN ×3 (06:44→19:19)
[2018-01-18] MEDS: OXYCODONE-ACETAMINOPHEN 5-325 MG TABLET PO PRN ×3 (06:44→19:20)
[2018-01-18 09:57] LABS: ANION GAP 9 (5-19); BLOOD UREA NITROGEN 33 mg/dL (7-20); CALCIUM 9.2 mg/dL (8.4-10.2); CARBON DIOXIDE 38 mmol/L (22-30); CHLORIDE 98 mmol/L (98-107); GLUCOSE 108 mg/dL (75-110); POTASSIUM 4.9 mmol/L (3.6-5.0); SODIUM 145.1 mmol/L (137-145)
[2018-01-18] MEDS: SERTRALINE HCL 50 MG TABLET PO SCH (10:30)
[2018-01-18] MEDS: DOCUSATE SODIUM 100 MG CAPSULE PO SCH (10:30)
[2018-01-18] MEDS: AMIODARONE HCL 200 MG TABLET PO SCH (10:30)
[2018-01-18] MEDS: ATORVASTATIN CALCIUM 40 MG TABLET PO SCH (10:30)
[2018-01-18] MEDS: POTASSIUM CHLORIDE 10 MEQ CAPSULE.ER PO SCH ×2 (10:31→21:43)
[2018-01-18] MEDS: APIXABAN 5 MG TABLET PO SCH ×2 (10:31→18:03)
[2018-01-18] MEDS: LANSOPRAZOLE 15 MG TAB.RAP.DR PO SCH (10:31)
[2018-01-18] MEDS: ASPIRIN 81 MG TABLET, ENT COATED PO SCH (10:31)
--- NOTE | 2018-01-18 17:15 | PDOC PROGRESS REPORT ---
Subjective Progress Note for:: 01/18/18 Subjective:: No adverse events overnight. No new complaints. He says overall his breathing feels better. He told me yesterday that he is only on oxygen as needed during the day, but his son said since the patient had bypass surgery in September of this year he has been on oxygen essentially [id number]. Reason For Visit: HEART FAILURE Physical Exam Vital Signs: Temp Pulse Resp BP Pulse Ox 97.5 F 59 L 13 102/52 L 96 01/18/18 15:49 01/18/18 15:49 01/18/18 15:49 01/18/18 15:49 01/18/18 15:49 Intake & Output 01/17/18 01/18/18 01/19/18 06:59 06:59 06:59 Intake Total 1238 1834 337 Output Total 2800 2275 175 Balance -1562 -441 162 Weight 121.8 kg 118.6 kg General appearance: PRESENT: no acute distress, cooperative, disheveled, morbidly obese Respiratory exam: PRESENT: decreased breath sounds, unlabored. ABSENT: rales, rhonchi, wheezes Cardiovascular exam: PRESENT: RRR, systolic murmur GI/Abdominal exam: PRESENT: normal bowel sounds, soft. ABSENT: guarding, rebound, tenderness Extremities exam: PRESENT: pedal edema, +1 edema Musculoskeletal exam: ABSENT: deformity Neurological exam: PRESENT: alert, awake, oriented to person, oriented to place , oriented to time Psychiatric exam: PRESENT: appropriate affect, normal mood Skin exam: PRESENT: dry, warm Results Laboratory Results: 01/17/18 04:07 01/18/18 08:53 01/18/18 08:53 Sodium 145.1 H Potassium 4.9 Chloride 98 Carbon Dioxide 38 H Anion Gap 9 BUN 33 H Creatinine 1.33 H Est GFR ( Amer) > 60 Est GFR (Non-Af Amer) 53 L Glucose 108 Calcium 9.2 01/10/18 01/10/18 01/10/18 02:05 08:01 14:40 Creatine Kinase CK-MB (CK-2) Troponin I 0.028 0.028 0.028 NT-Pro-B Natriuret Pep 01/14/18 01/14/18 01/14/18 16:30 16:30 23:10 Creatine Kinase 22 L 21 L CK-MB (CK-2) 0.94 Troponin I < 0.012 NT-Pro-B Natriuret Pep 01/14/18 01/15/18 01/15/18 23:10 05:22 05:22 Creatine Kinase 23 L CK-MB (CK-2) 1.08 1.01 Troponin I 0.016 0.013 NT-Pro-B Natriuret Pep 01/17/18 04:07 Creatine Kinase CK-MB (CK-2) Troponin I NT-Pro-B Natriuret Pep 2750 H Impressions: Cervical Spine CT 01/09/18 18:27 IMPRESSION: CHRONIC DEGENERATIVE CHANGES. NO ACUTE FINDINGS. Left pleural effusion. Head CT 01/09/18 18:27 IMPRESSION: CHRONIC CHANGES OF ATROPHY AND MICROVASCULAR ISCHEMIA. NO ACUTE PROCESS. EVIDENCE OF ACUTE STROKE: NO. Thoracic Spine X-Ray 01/09/18 18:35 IMPRESSION: Diffuse degenerative changes. No acute fracture. Chest CT 01/11/18 00:00 IMPRESSION: Moderate left subpulmonic effusion between the left hemidiaphragm and left lower lobe. Consolidation and collapse left lower lobe. Stable cardiomegaly, stable trace right pleural effusion Mild thickened interlobular septa likely related to mild interstitial edema Chest X-Ray 01/17/18 11:38 IMPRESSION: Congestive heart failure. No significant change. Assessment & Plan - Diagnosis (1) Acute on chronic diastolic (congestive) heart failure Is this a current diagnosis for this admission?: Yes Plan: We will resume his torsemide tomorrow morning. We had to stop diuretics because of the rise in his creatinine yesterday. He does not seem to have accumulated any fluid in the interim. Continue with fluid restriction and dietary restrictions. (2) Pleural effusion, left Is this a current diagnosis for this admission?: Yes Plan: Diuresis and otherwise conservative management for now - Time Time Spent with patient: 15-24 minutes
--- NOTE | 2018-01-18 19:53 | PDOC PROGRESS REPORT ---
Subjective Progress Note for:: 01/18/18 Subjective:: Patient seems to be doing better. Patient sitting at the side of bed comfortable.. Patient's breathing is much more improved. Currently sitting up by the side of bed. Pt is denying any chest arm or neck discomfort. Patient denying any PND, orthopnea. Patient denied any sustained palpitations, dizziness, syncope, near syncope. Patient denying any fever chills. Patient denying any other significant discomfort. Telemetry this morning shows AV paced rhythm noted. Review of systems: Rest review of systems negative. Medications: Medications have been reviewed. Reason For Visit: HEART FAILURE Physical Exam Vital Signs: Temp Pulse Resp BP Pulse Ox 97.5 F 59 L 13 102/52 L 96 01/18/18 15:49 01/18/18 15:49 01/18/18 15:49 01/18/18 15:49 01/18/18 15:49 Intake & Output 01/17/18 01/18/18 01/19/18 06:59 06:59 06:59 Intake Total 1238 1834 726 Output Total 2800 2275 550 Balance -1562 -441 176 Weight 121.8 kg 118.6 kg Exam: GENERAL: well-nourished and in no acute distress. Alert and oriented x3 HEAD: Atraumatic, normocephalic. EYES: Pupils equal round and reactive to light, extraocular movements intact, sclera anicteric, conjunctiva are normal. ENT: TMs normal, nares patent, oropharynx clear without exudates. Moist mucous membranes. No oral ulcerations or bleeding gums noted NECK: supple without lymphadenopathy. Trachea is central. No cervical or axillary lymphadenopathy noted. Carotids are 2+, JVD WNL LUNGS: Respiration seems nonlabored, no significant accessory muscle action noted. Bibasilar fine crackles with left basal dullness noted CHEST: Palpation of the chest wall shows no significant chest wall tenderness. 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 ABDOMEN: Soft, no significant tenderness appreciated, normoactive bowel sounds. No guarding, no rebound. No rigidity noted . No masses appreciated. EXTREMITIES: Pedal pulses are 1-2+, no calf tenderness noted. No clubbing or cyanosis. 1+ pedal edema noted NEUROLOGICAL: Focused neurological exam showed no significant neurologic deficit. Normal speech, no focal weakness appreciated. PSYCH: Normal mood, normal affect. Judgment and insight within normal limits. SKIN: No significant ecchymosis, skin is noted to be warm. MUSCULOSKELETAL EXAM: No significant acute joint swelling noted. Results Laboratory Results: 01/17/18 04:07 01/18/18 08:53 01/18/18 08:53 Sodium 145.1 H Potassium 4.9 Chloride 98 Carbon Dioxide 38 H Anion Gap 9 BUN 33 H Creatinine 1.33 H Est GFR ( Amer) > 60 Est GFR (Non-Af Amer) 53 L Glucose 108 Calcium 9.2 01/10/18 01/10/18 01/10/18 02:05 08:01 14:40 Creatine Kinase CK-MB (CK-2) Troponin I 0.028 0.028 0.028 NT-Pro-B Natriuret Pep 01/14/18 01/14/18 01/14/18 16:30 16:30 23:10 Creatine Kinase 22 L 21 L CK-MB (CK-2) 0.94 Troponin I < 0.012 NT-Pro-B Natriuret Pep 01/14/18 01/15/18 01/15/18 23:10 05:22 05:22 Creatine Kinase 23 L CK-MB (CK-2) 1.08 1.01 Troponin I 0.016 0.013 NT-Pro-B Natriuret Pep 01/17/18 04:07 Creatine Kinase CK-MB (CK-2) Troponin I NT-Pro-B Natriuret Pep 2750 H Impressions: Cervical Spine CT 01/09/18 18:27 IMPRESSION: CHRONIC DEGENERATIVE CHANGES. NO ACUTE FINDINGS. Left pleural effusion. Head CT 01/09/18 18:27 IMPRESSION: CHRONIC CHANGES OF ATROPHY AND MICROVASCULAR ISCHEMIA. NO ACUTE PROCESS. EVIDENCE OF ACUTE STROKE: NO. Thoracic Spine X-Ray 01/09/18 18:35 IMPRESSION: Diffuse degenerative changes. No acute fracture. Chest CT 01/11/18 00:00 IMPRESSION: Moderate left subpulmonic effusion between the left hemidiaphragm and left lower lobe. Consolidation and collapse left lower lobe. Stable cardiomegaly, stable trace right pleural effusion Mild thickened interlobular septa likely related to mild interstitial edema Chest X-Ray 07/24/18 11:38 IMPRESSION: Congestive heart failure. No significant change. Assessment & Plan - Diagnosis (1) Acute on chronic diastolic (congestive) heart failure Is this a current diagnosis for this admission?: Yes (2) Acute and chronic respiratory failure Qualifiers: Respiratory failure complication: hypoxia and hypercapnia Qualified Code(s) : J96.21 - Acute and chronic respiratory failure with hypoxia; J96.22 - Acute and chronic respiratory failure with hypercapnia; J96.22 - Acute and chronic respiratory failure with hypercapnia; J96.22 - Acute and chronic respiratory failure with hypercapnia Is this a current diagnosis for this admission?: Yes (3) COPD (chronic obstructive pulmonary disease) Qualifiers: Chronic bronchitis type: unspecified Is this a current diagnosis for this admission?: Yes (4) Obstructive sleep apnea Is this a current diagnosis for this admission?: Yes (5) Pleural effusion, left Is this a current diagnosis for this admission?: Yes (6) History of atrial fibrillation Is this a current diagnosis for this admission?: Yes - Notes Notes: Diuretics were held yesterday because of concern about renal function but would recommend resuming it today. This is based on review of chest x-ray which showed continuing pleural effusion and mild pulmonary venous congestion. Acute on chronic CHF, predominantly diastolic but I suspect significant contribution from right heart failure. Previous 2D echocardiogram reviewed and was technically difficult. Resume patient on torsemide 20 mg p.o. daily. Monitor intake output, daily weight. Periodic BNP and chest x-ray will be essential in following CHF management. Acute on chronic respiratory failure: This is based on COPD, obesity hypoventilation syndrome, obstructive sleep apnea. Patient will benefit from nightly intermittent positive pressure ventilation and also was taking naps. COPD: Patient today claims that he had quit smoking several years ago. Continue bronchodilator and other therapy as needed. Obstructive sleep apnea: Patient will benefit from intermittent and nightly CPAP /BiPAP therapy. Left pleural effusion: Patient also has a smaller right pleural effusion. [place] to be related to CHF. Recommend continuing diuresis. However if pleural effusion persist may consider thoracentesis just for diagnostic purposes. I am told that patient had previous thoracentesis and the fluid was transudate. Status post defibrillator placement: Patient and noted to have a normal functioning defibrillator on cardiac monitoring. Patient noted to have AV paced rhythm. Patient has a history of atrial fibrillation: Currently on amiodarone therapy. Patient currently is started on chronic anticoagulation with Eliquis. Continue current regimen. - Time Time with patient: 15-25 minutes - More than 50% of the time spent coordinating care, discussing management plans with involved caregivers. Management plans discussed with involved personnels. Medical decision making was of moderate to high complexity, patient's has multiple comorbidities. Medications reviewed and adjusted accordingly: Yes
[2018-01-19] MEDS: OXYCODONE-ACETAMINOPHEN 5-325 MG TABLET PO PRN ×4 (02:00→21:10)
[2018-01-19] MEDS: OXYCODONE HCL IR 5 MG TABLET PO PRN ×4 (02:00→21:10)
[2018-01-19 05:30] LABS: ANION GAP 10 (5-19); BLOOD UREA NITROGEN 35 mg/dL (7-20); CALCIUM 8.7 mg/dL (8.4-10.2); CARBON DIOXIDE 36 mmol/L (22-30); CHLORIDE 99 mmol/L (98-107); GLUCOSE 108 mg/dL (75-110); POTASSIUM 4.9 mmol/L (3.6-5.0); SODIUM 145.1 mmol/L (137-145)
[2018-01-19] MEDS: LANSOPRAZOLE 15 MG TAB.RAP.DR PO SCH (08:39)
[2018-01-19] MEDS: TORSEMIDE 20 MG TABLET PO SCH (10:42)
[2018-01-19] MEDS: APIXABAN 5 MG TABLET PO SCH ×2 (10:42→17:16)
[2018-01-19] MEDS: ASPIRIN 81 MG TABLET, ENT COATED PO SCH (10:42)
[2018-01-19] MEDS: SERTRALINE HCL 50 MG TABLET PO SCH (10:42)
[2018-01-19] MEDS: POTASSIUM CHLORIDE 10 MEQ CAPSULE.ER PO SCH ×2 (10:42→21:09)
[2018-01-19] MEDS: AMIODARONE HCL 200 MG TABLET PO SCH (10:42)
[2018-01-19] MEDS: DOCUSATE SODIUM 100 MG CAPSULE PO SCH (10:42)
[2018-01-19] MEDS: ATORVASTATIN CALCIUM 40 MG TABLET PO SCH (10:42)
--- NOTE | 2018-01-19 14:48 | PDOC PROGRESS REPORT ---
Subjective Progress Note for:: 01/19/18 Subjective:: When I came in the room he was on his back fast asleep snoring. His son was sitting back in the recliner with his shirt off watching television. 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 He said the rotary kiln operator did not seem to think it was cardiac in origin. He has had no events on the manager net. Reason For Visit: HEART FAILURE Physical Exam Vital Signs: Temp Pulse Resp BP Pulse Ox 97.9 F 60 16 102/46 L 96 01/19/18 11:19 01/19/18 11:19 01/19/18 11:19 01/19/18 11:19 01/19/18 11:19 Intake & Output 01/18/18 01/19/18 01/20/18 06:59 06:59 06:59 Intake Total 1834 962 236 Output Total 8112 1550 750 Balance -441 -588 -514 Weight 118.6 kg 119.8 kg General appearance: PRESENT: no acute distress, cooperative, disheveled, morbidly obese Respiratory exam: PRESENT: decreased breath sounds, unlabored. ABSENT: rales, rhonchi, wheezes Cardiovascular exam: PRESENT: RRR, systolic murmur GI/Abdominal exam: PRESENT: normal bowel sounds, soft. ABSENT: guarding, rebound, tenderness Extremities exam: PRESENT: pedal edema, +1 edema Musculoskeletal exam: ABSENT: deformity Neurological exam: PRESENT: alert, awake, oriented to person, oriented to place , oriented to time Psychiatric exam: PRESENT: appropriate affect, normal mood Skin exam: PRESENT: dry, warm Results Laboratory Results: 01/17/18 04:07 01/19/18 04:11 01/19/18 04:11 Sodium 145.1 H Potassium 4.9 Chloride 99 Carbon Dioxide 36 H Anion Gap 10 BUN 35 H Creatinine 1.23 Est GFR ( Amer) > 60 Est GFR (Non-Af Amer) 58 L Glucose 108 Calcium 8.7 01/10/18 01/10/18 01/10/18 02:05 08:01 14:40 Creatine Kinase CK-MB (CK-2) Troponin I 0.028 0.028 0.028 NT-Pro-B Natriuret Pep 01/14/18 01/14/18 01/14/18 16:30 16:30 23:10 Creatine Kinase 22 L 21 L CK-MB (CK-2) 0.94 Troponin I < 0.012 NT-Pro-B Natriuret Pep 01/14/18 01/15/18 01/15/18 23:10 05:22 05:22 Creatine Kinase 23 L CK-MB (CK-2) 1.08 1.01 Troponin I 0.016 0.013 NT-Pro-B Natriuret Pep 01/17/18 04:07 Creatine Kinase CK-MB (CK-2) Troponin I NT-Pro-B Natriuret Pep 2750 H Impressions: Cervical Spine CT 01/09/18 18:27 IMPRESSION: CHRONIC DEGENERATIVE CHANGES. NO ACUTE FINDINGS. Left pleural effusion. Head CT 01/09/18 18:27 IMPRESSION: CHRONIC CHANGES OF ATROPHY AND MICROVASCULAR ISCHEMIA. NO ACUTE PROCESS. EVIDENCE OF ACUTE STROKE: NO. Thoracic Spine X-Ray 01/09/18 18:35 IMPRESSION: Diffuse degenerative changes. No acute fracture. Chest CT 01/11/18 00:00 IMPRESSION: Moderate left subpulmonic effusion between the left hemidiaphragm and left lower lobe. Consolidation and collapse left lower lobe. Stable cardiomegaly, stable trace right pleural effusion Mild thickened interlobular septa likely related to mild interstitial edema Chest X-Ray 01/17/18 11:38 IMPRESSION: Congestive heart failure. No significant change. Assessment & Plan - Diagnosis (1) Acute on chronic diastolic (congestive) heart failure Is this a current diagnosis for this admission?: Yes Plan: We will resume his torsemide today. We had to stop diuretics because of the rise in his creatinine which is now trended back down to normal. He does not seem to have accumulated any fluid in the interim. Continue with fluid restriction and dietary restrictions. We will monitor him overnight in anticipation he will go home tomorrow. (2) Pleural effusion, left Is this a current diagnosis for this admission?: Yes Plan: Diuresis and otherwise conservative management for now - Time Time Spent with patient: 15-24 minutes
--- NOTE | 2018-01-19 20:04 | PDOC PROGRESS REPORT ---
Subjective Progress Note for:: 01/19/18 Subjective:: Patient complained of some intermittent sharp chest pain at his previous defibrillator surgery site. No relation to exertion. Patient seems to be doing better. Patient sitting at the side of bed comfortable, he was noted to be eating breakfast. Patient's breathing is much more improved. Currently sitting up by the side of bed. Patient denying any PND, orthopnea. Patient denied any sustained palpitations, dizziness, syncope, near syncope. Patient denying any fever chills. Patient denying any other significant discomfort. Telemetry this morning shows AV paced rhythm noted. Review of systems: Rest review of systems negative. Medications: Medications have been reviewed. Reason For Visit: HEART FAILURE Physical Exam Vital Signs: Temp Pulse Resp BP Pulse Ox 98.4 F 58 L 12 112/59 L 98 01/19/18 15:27 01/19/18 15:27 01/19/18 15:27 01/19/18 15:27 01/19/18 15:27 Intake & Output 01/18/18 01/19/18 01/20/18 06:59 06:59 06:59 Intake Total 1834 962 736 Output Total 2275 1550 1250 Balance -441 -588 -514 Weight 118.6 kg 119.8 kg Exam: GENERAL: well-nourished and in no acute distress. Alert and oriented x3 HEAD: Atraumatic, normocephalic. EYES: Pupils equal round and reactive to light, extraocular movements intact, sclera anicteric, conjunctiva are normal. ENT: TMs normal, nares patent, oropharynx clear without exudates. Moist mucous membranes. No oral ulcerations or bleeding gums noted NECK: supple without lymphadenopathy. Trachea is central. No cervical or axillary lymphadenopathy noted. Carotids are 2+, JVD WNL LUNGS: Respiration seems nonlabored, no significant accessory muscle action noted. Bibasilar fine crackles and mild diminished breath sound as well as dullness dullness noted on percussion, both bases left more than right. CHEST: Palpation of the chest wall shows no significant chest wall tenderness. 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 ABDOMEN: Soft, no significant tenderness appreciated, normoactive bowel sounds. No guarding, no rebound. No rigidity noted . No masses appreciated. EXTREMITIES: Pedal pulses are 1-2+, no calf tenderness noted. No clubbing or cyanosis. 1+ pedal edema noted NEUROLOGICAL: Focused neurological exam showed no significant neurologic deficit. Normal speech, no focal weakness appreciated. PSYCH: Normal mood, normal affect. Judgment and insight within normal limits. SKIN: No significant ecchymosis, skin is noted to be warm. MUSCULOSKELETAL EXAM: No significant acute joint swelling noted. Results Laboratory Results: 01/17/18 04:07 01/19/18 04:11 01/19/18 04:11 Sodium 145.1 H Potassium 4.9 Chloride 99 Carbon Dioxide 36 H Anion Gap 10 BUN 35 H Creatinine 1.23 Est GFR ( Amer) > 60 Est GFR (Non-Af Amer) 58 L Glucose 108 Calcium 8.7 01/10/18 01/10/18 01/10/18 02:05 08:01 14:40 Creatine Kinase CK-MB (CK-2) Troponin I 0.028 0.028 0.028 NT-Pro-B Natriuret Pep 01/14/18 01/14/18 01/14/18 16:30 16:30 23:10 Creatine Kinase 22 L 21 L CK-MB (CK-2) 0.94 Troponin I < 0.012 NT-Pro-B Natriuret Pep 01/14/18 01/15/18 01/15/18 23:10 05:22 05:22 Creatine Kinase 23 L CK-MB (CK-2) 1.08 1.01 Troponin I 0.016 0.013 NT-Pro-B Natriuret Pep 01/17/18 04:07 Creatine Kinase CK-MB (CK-2) Troponin I NT-Pro-B Natriuret Pep 2750 H Impressions: Cervical Spine CT 01/09/18 18:27 IMPRESSION: CHRONIC DEGENERATIVE CHANGES. NO ACUTE FINDINGS. Left pleural effusion. Head CT 01/09/18 18:27 IMPRESSION: CHRONIC CHANGES OF ATROPHY AND MICROVASCULAR ISCHEMIA. NO ACUTE PROCESS. EVIDENCE OF ACUTE STROKE: NO. Thoracic Spine X-Ray 01/09/18 18:35 IMPRESSION: Diffuse degenerative changes. No acute fracture. Chest CT 01/11/18 00:00 IMPRESSION: Moderate left subpulmonic effusion between the left hemidiaphragm and left lower lobe. Consolidation and collapse left lower lobe. Stable cardiomegaly, stable trace right pleural effusion Mild thickened interlobular septa likely related to mild interstitial edema Chest X-Ray 01/17/18 11:38 IMPRESSION: Congestive heart failure. No significant change. Assessment & Plan - Diagnosis (1) Acute on chronic diastolic (congestive) heart failure Is this a current diagnosis for this admission?: Yes (2) Acute and chronic respiratory failure Qualifiers: Respiratory failure complication: hypoxia and hypercapnia Qualified Code(s) : J96.21 - Acute and chronic respiratory failure with hypoxia; J96.22 - Acute and chronic respiratory failure with hypercapnia; J96.22 - Acute and chronic respiratory failure with hypercapnia; J96.22 - Acute and chronic respiratory failure with hypercapnia Is this a current diagnosis for this admission?: Yes (3) COPD (chronic obstructive pulmonary disease) Qualifiers: Chronic bronchitis type: unspecified Is this a current diagnosis for this admission?: Yes (4) Obstructive sleep apnea Is this a current diagnosis for this admission?: Yes (5) Pleural effusion, left Is this a current diagnosis for this admission?: Yes (6) History of atrial fibrillation Is this a current diagnosis for this admission?: Yes (8) Chest pain Qualifiers: Chest pain type: unspecified Qualified Code(s): R07.9 - Chest pain, unspecified Is this a current diagnosis for this admission?: Yes - Notes Notes: Chest pain: Sharp in nature at the previous defibrillator site. Patient is status post bypass surgery just a few months ago therefore doubt ischemia. Chest pain clearly atypical. Acute on chronic CHF, predominantly diastolic but I suspect significant contribution from right heart failure. Previous 2D echocardiogram reviewed and was technically difficult. Continue patient on torsemide 20 mg p.o. daily. Monitor intake output, daily weight. Periodic BNP and chest x-ray will be essential in following CHF management. May consider increasing torsemide to 20 mg p.o. twice daily, especially if satisfactory's response is not noted. Acute on chronic respiratory failure: This is based on COPD, obesity hypoventilation syndrome, obstructive sleep apnea. Patient will benefit from nightly intermittent positive pressure ventilation and also was taking naps. COPD: Patient today claims that he had quit smoking several years ago. Continue bronchodilator and other therapy as needed. Obstructive sleep apnea: Patient will benefit from intermittent and nightly CPAP /BiPAP therapy. Left pleural effusion: Patient also has a smaller right pleural effusion. [place] to be related to CHF. Recommend continuing diuresis. However if pleural effusion persist may consider thoracentesis just for diagnostic purposes. I am told that patient had previous thoracentesis and the fluid was transudate. Status post defibrillator placement: Patient and noted to have a normal functioning defibrillator on cardiac monitoring. Patient noted to have AV paced rhythm. Patient has a history of atrial fibrillation: Currently on amiodarone therapy. Patient currently is started on chronic anticoagulation with Eliquis. Continue current regimen. - Time Time with patient: Greater than 35 minutes - CODE STATUS was discussed, patient remains full code. Surrogate decision-maker unchanged. Multiple medical problems were addressed. More than 50% of the time spent coordinating care, discussing management plans with involved caregivers. Management plans discussed with involved personnels. Medical decision making was of moderate to high complexity, patient's has multiple comorbidities. Medications reviewed and adjusted accordingly: Yes
[2018-01-20] MEDS: OXYCODONE HCL IR 5 MG TABLET PO PRN ×3 (04:06→16:16)
[2018-01-20] MEDS: OXYCODONE-ACETAMINOPHEN 5-325 MG TABLET PO PRN ×3 (04:06→16:16)
[2018-01-20 05:20] LABS: ANION GAP 10 (5-19); BLOOD UREA NITROGEN 37 mg/dL (7-20); CARBON DIOXIDE 36 mmol/L (22-30); CHLORIDE 97 mmol/L (98-107); GLUCOSE 114 mg/dL (75-110); POTASSIUM 4.9 mmol/L (3.6-5.0); SODIUM 143.3 mmol/L (137-145)
[2018-01-20] MEDS: ASPIRIN 81 MG TABLET, ENT COATED PO SCH (09:40)
[2018-01-20] MEDS: ATORVASTATIN CALCIUM 40 MG TABLET PO SCH (09:40)
[2018-01-20] MEDS: LANSOPRAZOLE 15 MG TAB.RAP.DR PO SCH (09:40)
[2018-01-20] MEDS: SERTRALINE HCL 50 MG TABLET PO SCH (09:40)
[2018-01-20] MEDS: POTASSIUM CHLORIDE 10 MEQ CAPSULE.ER PO SCH (09:40)
[2018-01-20] MEDS: AMIODARONE HCL 200 MG TABLET PO SCH (09:41)
[2018-01-20] MEDS: APIXABAN 5 MG TABLET PO SCH (09:41)
[2018-01-20] MEDS: TORSEMIDE 20 MG TABLET PO SCH (09:41)
[2018-01-20] MEDS: DOCUSATE SODIUM 100 MG CAPSULE PO SCH (09:41)
[2018-01-20 16:49] VITALS: BP 139/69
--- NOTE | 2018-01-20 18:21 | PDOC PROGRESS REPORT ---
Subjective Progress Note for:: 01/20/18 Subjective:: Patient noted to be without any chest pain. Patient tells me that he is ready for discharge and he can follow-up with me on his band cutter of choice. Currently sitting up by the side of bed. Patient denying any PND, orthopnea. Patient denied any sustained palpitations, dizziness, syncope, near syncope. Patient denying any fever chills. Patient denying any other significant discomfort. Telemetry this morning shows AV paced rhythm noted. Review of systems: Rest review of systems negative. Medications: Medications have been reviewed. Reason For Visit: HEART FAILURE Physical Exam Vital Signs: Temp Pulse Resp BP Pulse Ox 97.9 F 60 18 139/69 H 90 L 01/20/18 16:47 01/20/18 16:47 01/20/18 16:47 01/20/18 16:47 01/20/18 16:47 Intake & Output 01/19/18 01/20/18 01/21/18 06:59 06:59 06:59 Intake Total 962 1194 475 Output Total 1550 2100 350 Balance -588 -906 125 Weight 119.8 kg 121.5 kg Exam: GENERAL: well-nourished and in no acute distress. Alert and oriented x3 HEAD: Atraumatic, normocephalic. EYES: Pupils equal round and reactive to light, extraocular movements intact, sclera anicteric, conjunctiva are normal. ENT: TMs normal, nares patent, oropharynx clear without exudates. Moist mucous membranes. No oral ulcerations or bleeding gums noted NECK: supple without lymphadenopathy. Trachea is central. No cervical or axillary lymphadenopathy noted. Carotids are 2+, JVD WNL LUNGS: Respiration seems nonlabored, no significant accessory muscle action noted. Bibasilar fine crackles noted, mild left basal dullness noted right side seems clear as regards dullness. CHEST: Palpation of the chest wall shows no significant chest wall tenderness. 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 ABDOMEN: Soft, no significant tenderness appreciated, normoactive bowel sounds. No guarding, no rebound. No rigidity noted . No masses appreciated. EXTREMITIES: Pedal pulses are 1-2+, no calf tenderness noted. No clubbing or cyanosis. 1+ pedal edema noted NEUROLOGICAL: Focused neurological exam showed no significant neurologic deficit. Normal speech, no focal weakness appreciated. PSYCH: Normal mood, normal affect. Judgment and insight within normal limits. SKIN: No significant ecchymosis, skin is noted to be warm. MUSCULOSKELETAL EXAM: No significant acute joint swelling noted. Results Laboratory Results: 01/17/18 04:07 01/20/18 04:40 01/20/18 04:40 Sodium 143.3 Potassium 4.9 Chloride 97 L Carbon Dioxide 36 H Anion Gap 10 BUN 37 H Creatinine 1.27 H Est GFR ( Amer) > 60 Est GFR (Non-Af Amer) 56 L Glucose 114 H Calcium 9.0 01/10/18 01/10/18 01/10/18 02:05 08:01 14:40 Creatine Kinase CK-MB (CK-2) Troponin I 0.028 0.028 0.028 NT-Pro-B Natriuret Pep 01/14/18 01/14/18 01/14/18 16:30 16:30 23:10 Creatine Kinase 22 L 21 L CK-MB (CK-2) 0.94 Troponin I < 0.012 NT-Pro-B Natriuret Pep 01/14/18 01/15/18 01/15/18 23:10 05:22 05:22 Creatine Kinase 23 L CK-MB (CK-2) 1.08 1.01 Troponin I 0.016 0.013 NT-Pro-B Natriuret Pep 01/17/18 04:07 Creatine Kinase CK-MB (CK-2) Troponin I NT-Pro-B Natriuret Pep 2750 H EKG Comments: Telemetry shows AV paced rhythm Impressions: Cervical Spine CT 01/09/18 18:27 IMPRESSION: CHRONIC DEGENERATIVE CHANGES. NO ACUTE FINDINGS. Left pleural effusion. Head CT 01/09/18 18:27 IMPRESSION: CHRONIC CHANGES OF ATROPHY AND MICROVASCULAR ISCHEMIA. NO ACUTE PROCESS. EVIDENCE OF ACUTE STROKE: NO. Thoracic Spine X-Ray 01/09/18 18:35 IMPRESSION: Diffuse degenerative changes. No acute fracture. Chest CT 01/11/18 00:00 IMPRESSION: Moderate left subpulmonic effusion between the left hemidiaphragm and left lower lobe. Consolidation and collapse left lower lobe. Stable cardiomegaly, stable trace right pleural effusion Mild thickened interlobular septa likely related to mild interstitial edema Chest X-Ray 01/17/18 11:38 IMPRESSION: Congestive heart failure. No significant change. Assessment & Plan - Diagnosis (1) Acute on chronic diastolic (congestive) heart failure Is this a current diagnosis for this admission?: Yes (2) Acute and chronic respiratory failure Qualifiers: Respiratory failure complication: hypoxia and hypercapnia Qualified Code(s) : J96.21 - Acute and chronic respiratory failure with hypoxia; J96.22 - Acute and chronic respiratory failure with hypercapnia; J96.22 - Acute and chronic respiratory failure with hypercapnia; J96.22 - Acute and chronic respiratory failure with hypercapnia Is this a current diagnosis for this admission?: Yes (3) COPD (chronic obstructive pulmonary disease) Qualifiers: Chronic bronchitis type: unspecified Is this a current diagnosis for this admission?: Yes (4) Obstructive sleep apnea Is this a current diagnosis for this admission?: Yes (5) Pleural effusion, left Is this a current diagnosis for this admission?: Yes (6) History of atrial fibrillation Is this a current diagnosis for this admission?: Yes (8) Chest pain Qualifiers: Chest pain type: unspecified Qualified Code(s): R07.9 - Chest pain, unspecified Is this a current diagnosis for this admission?: Yes - Notes Notes: Patient has remained stable and without any significant shortness of breath. Patient himself feels that he is ready for discharge. Feel that it safe to discharge with those cardiology follow-up and adjustment of medications as an outpatient can be performed. This was discussed with hospitalist and also patient. Acute on chronic CHF, predominantly diastolic but I suspect significant contribution from right heart failure. Previous 2D echocardiogram reviewed and was technically difficult. Continue patient on torsemide 20 mg p.o. daily with further adjustment as an outpatient. Patient educated about salt and fluid restriction, daily weighing and adjustment of medications. Acute on chronic respiratory failure: This is based on COPD, obesity hypoventilation syndrome, obstructive sleep apnea. Patient will benefit from nightly intermittent positive pressure ventilation and also was taking naps. COPD: Patient today claims that he had quit smoking several years ago. Continue bronchodilator and other therapy as needed. Obstructive sleep apnea: Patient will benefit from intermittent and nightly CPAP /BiPAP therapy. Left pleural effusion: Patient also has a smaller right pleural effusion. [place] to be related to CHF. Recommend continuing diuresis. However if pleural effusion persist may consider thoracentesis just for diagnostic purposes. I am told that patient had previous thoracentesis and the fluid was transudate. Status post defibrillator placement: Patient and noted to have a normal functioning defibrillator on cardiac monitoring. Patient noted to have AV paced rhythm. Patient has a history of atrial fibrillation: Currently on amiodarone therapy. Patient currently is started on chronic anticoagulation with Eliquis. Continue current regimen. - Time Time with patient: 15-25 minutes - More than 50% of the time spent coordinating care, discussing management plans with involved caregivers. Management plans discussed with involved personnels. Medical decision making was of moderate to high complexity, patient's has multiple comorbidities.
== END 2018-01-20 17:41 | disposition home health service (06) | DRG 291 ==
LOC: ER 17:54 → EH 21:49 → 3N 01-10 00:42
PROVIDERS: ADMIT Internal Medicine; ATTEND Internal Medicine
DX: I11.0 Hypertensive heart disease with heart failure (principal); J96.21 Acute and chronic respiratory failure with hypoxia; J96.22 Acute and chronic respiratory failure with hypercapnia; I48.92 Unspecified atrial flutter; E87.0 Hyperosmolality and hypernatremia; E66.2 Morbid (severe) obesity with alveolar hypoventilation; F11.20 Opioid dependence, uncomplicated; I50.33 Acute on chronic diastolic (congestive) heart failure; I25.10 Atherosclerotic heart disease of native coronary artery without angina pectoris; J44.9 Chronic obstructive pulmonary disease, unspecified; E11.8 Type 2 diabetes mellitus with unspecified complications; D64.9 Anemia, unspecified; R51 Headache; R55 Syncope and collapse; R42 Dizziness and giddiness; M54.9 Dorsalgia, unspecified; F17.210 Nicotine dependence, cigarettes, uncomplicated; Z86.711 Personal history of pulmonary embolism; Z95.0 Presence of cardiac pacemaker; Z79.01 Long term (current) use of anticoagulants; Z79.82 Long term (current) use of aspirin; Z79.899 Other long term (current) drug therapy; Z99.81 Dependence on supplemental oxygen; Z68.37 Body mass index [BMI] 37.0-37.9, adult
CPT/HCPCS: 36415; 70450; 71046; 71250; 72070; 72125; 80048; 80053; 81001; 82550; 82553; 83735; 83880; 84484; 85025; 85027; 85610; 85730; 93005; 93010; 94660; 99285; G8978-GP; G8979-GP; J1940; J3490

== ENCOUNTER 2018-01-29 17:26 | Emergency (ER) | payer MEDICARE, MEDICAID ==
[2018-01-29] MEDS ORDERED: ASPIRIN 81 MG TABLET, CHEWABLE PO ONE (17:28)
[2018-01-29 17:58] LABS: ABSOLUTE EOSINOPHILS # (AUTO) 0.3 10^3/uL (0.0-0.6); ABSOLUTE LYMPHOCYTES (AUTO) 1.5 10^3/uL (0.5-4.7); ABSOLUTE MONOCYTES (AUTO) 0.6 10^3/uL (0.1-1.4); ABSOLUTE NEUT (AUTO) 3.3 10^3/uL (1.7-8.2); BASOPHILS % (AUTO) 0.8 % (0-2); HEMATOCRIT 26.8 % (37.9-51.0); HEMOGLOBIN 8.8 g/dL (13.5-17.0); LYMPHOCYTES % (AUTO) 26.5 % (13-45); MEAN CORPUSCULAR HEMOGLOBIN 29.1 pg (27.0-33.4); MEAN CORPUSCULAR HGB CONC 32.7 g/dL (32.0-36.0); MEAN CORPUSCULAR VOLUME 89 fl (80-97); MONOCYTES % (AUTO) 10.6 % (3-13); PLATELET COUNT 240 10^3/uL (150-450); RED BLOOD COUNT 3.01 10^6/uL (4.35-5.55); RED CELL DISTRIBUTION WIDTH 16.8 % (11.5-14.0); SEGMENTED NEUTROPHILS % (AUTO) 57.1 % (42-78); TOTAL CELLS COUNTED % (AUTO) 100 %; WHITE BLOOD COUNT 5.7 10^3/uL (4.0-10.5)
--- NOTE | 2018-01-29 18:19 | RADIOLOGY REPORT (SQ) ---
EXAM DESCRIPTION: CHEST SINGLE VIEW COMPLETED DATE/TIME: 01/29/2018 6:03 pm REASON FOR STUDY: cp COMPARISON: 01/17/2018 EXAM PARAMETERS: NUMBER OF VIEWS: One view. TECHNIQUE: Single frontal radiographic view of the chest acquired. RADIATION DOSE: NA LIMITATIONS: None. FINDINGS: LUNGS AND PLEURA: Similar confluent opacity in the left lung base consistent with airspace disease and pleural effusion. Small right pleural effusion. Similar mild interstitial prominence. No pneumothorax. MEDIASTINUM AND HILAR STRUCTURES: Stable. HEART AND VASCULAR STRUCTURES: Stable. BONES: No acute findings. HARDWARE: Sternotomy. Cardiac defibrillator. OTHER: No other significant finding. IMPRESSION: Similar confluent opacity in the left lung base consistent with airspace disease and ple ural effusion. Small right pleural effusion. Similar mild interstitial prominence. TECHNICAL DOCUMENTATION: JOB ID: [id number] [id number] 2010 [employer]- All Rights Reserved Reading location - IP/workstation name: [email or web address]
[2018-01-29 18:26] LABS: ALANINE AMINOTRANSFERASE 18 U/L (21-72); ALBUMIN 3.6 g/dL (3.5-5.0); ALKALINE PHOSPHATASE 69 U/L (38-126); ANION GAP 10 (5-19); ASPARTATE AMINO TRANSFERASE 25 U/L (17-59); BILIRUBIN,DIRECT 0.3 mg/dL (0.0-0.4); BILIRUBIN,TOTAL 0.5 mg/dL (0.2-1.3); BLOOD UREA NITROGEN 38 mg/dL (7-20); CALCIUM 8.5 mg/dL (8.4-10.2); CARBON DIOXIDE 36 mmol/L (22-30); CHLORIDE 98 mmol/L (98-107); CREATINE KINASE 39 U/L (55-170); GLUCOSE 84 mg/dL (75-110); POTASSIUM 4.4 mmol/L (3.6-5.0); SODIUM 144.4 mmol/L (137-145); TOTAL PROTEIN 7.5 g/dL (6.3-8.2)
[2018-01-29 18:36] LABS: CREATINE KINASE MB 1.13 ng/mL (<4.55); TROPONIN I 0.02 ng/mL
--- NOTE | 2018-01-29 19:14 | ER Document Report ---
ED General - General Mode of Arrival: Ambulatory Information source: Patient TRAVEL OUTSIDE OF THE [place] IN LAST 30 DAYS: No <MARICHUY BROWN - Last Filed: 01/29/18 20:28> <RONALD SHAY - Last Filed: 01/30/18 03:40> - General Chief Complaint: Chest Pain Stated Complaint: CHEST PAIN Time Seen by Provider: 01/29/18 18:22 Notes: Patient is a 72-year-old male who presents to the emergency department today with complaints of upper abdominal pain, "water building up", left leg swelling and erythema. Patient was recently admitted to this facility approximately 2 weeks ago for congestive heart failure. Patient states at that time he was having frequent falls and shortness of breath. Patient is on 2L of home oxygen chronically. Patient does take blood thinning medications. Patient denies any fevers. (MARICHUY BROWN) - Related Data Allergies/Adverse Reactions: No Known Allergies Allergy (Verified 01/10/18 10:34) Past Medical History - General Information source: Patient, [facility] Records - Social History Smoking Status: Former Smoker Frequency of alcohol use: None Drug Abuse: None Lives with: Family Family History: Reviewed & Not Pertinent, CAD, COPD, Hypertension Patient has suicidal ideation: No Patient has homicidal ideation: No - Past Medical History Cardiac Medical History: Reports: Hx Atrial Fibrillation, Hx Congestive Heart Failure, Hx Coronary Artery Disease, Hx Heart Attack, Hx Hypercholesterolemia, Hx Hypertension, Hx Pulmonary Embolism Pulmonary Medical History: Reports: Hx COPD Musculoskeletal Medical History: Reports Hx Arthritis Psychiatric Medical History: Reports: Hx Depression Past Surgical History: Reports: Hx Cardiac Catheterization, Hx Cardiac Surgery - Pacemaker-removed due to infection, Hx Coronary Artery Bypass Graft, Hx Coronary Stent, Hx Internal Defibrillator, Hx Pacemaker - Battery change out and then explantation., Hx Tonsillectomy - Immunizations Hx Diphtheria, Pertussis, Tetanus Vaccination: No - >5 YRS Hx Pneumococcal Vaccination: 03/27/11 <MARICHUY BROWN - Last Filed: 01/29/18 20:28> Review of Systems - Review of Systems Constitutional: denies: Fever EENT: No symptoms reported Cardiovascular: No symptoms reported Respiratory: See HPI, Short of breath Gastrointestinal: See HPI, Abdominal pain Genitourinary: No symptoms reported Male Genitourinary: No symptoms reported Musculoskeletal: See HPI, Leg swelling Skin: No symptoms reported Hematologic/Lymphatic: No symptoms reported Neurological/Psychological: No symptoms reported -: Yes All other systems reviewed and negative <MARICHUY BROWN - Last Filed: 01/29/18 20:28> Physical Exam - Vital signs Interpretation: Hypoxic - General General appearance: Appears well In distress: None - Respiratory Respiratory status: No respiratory distress Breath sounds: Decreased air movement - At bases bilaterally. No: Rales, Rhonchi, Stridor, Wheezing - Cardiovascular Rhythm: Regular - Extremities General upper extremity: Normal inspection, Normal ROM General lower extremity: Edema - b/l, Normal ROM - Neurological Neuro grossly intact: Yes Cognition: Normal Orientation: AAOx4 [place] Coma Scale Eye Opening: Spontaneous [place] Coma Scale Verbal: Oriented [place] Coma Scale Motor: Obeys Commands [place] Coma Scale Total: 15 - Skin Skin Temperature: Warm Skin Moisture: Dry Skin Color: Normal <RONALD SHAY - Last Filed: 01/30/18 03:40> - Vital signs Vitals: Pulse Ox 90 L 01/29/18 17:28 Course - Laboratory Result Diagrams: 01/29/18 17:45 01/29/18 17:45 <MARICHUY BROWN - Last Filed: 01/29/18 20:28> - Laboratory Result Diagrams: 01/29/18 17:45 01/29/18 17:45 - Diagnostic Test Radiology reviewed: Reports reviewed <RONALD SHAY - Last Filed: 01/30/18 03:40> - Re-evaluation Re-evalutation: 01/30/18 Patient is a 72-year-old male who comes in complaining of left-sided chest pain , back pain, and leg swelling. Patient has had left-sided chest pain since before he had a thoracocentesis and states that it is actually better after that. Patient has chronic back pain and is in pain management but they would not fill his pain medication because he did not bring the empty bottle with him last Tuesday so he has not been able to take any at home. Patient does have some mild leg swelling but he is not in any respiratory distress. His vitals is at baseline. He is not complaining of any difficulty breathing. He does have some mild edema and has been given a dose of Lasix. He is taking torsemide at home. Patient's main complaint is his concern about pain. Of note , he also had recent venous Dopplers to evaluate for DVT which he did not have. Son agrees that patient's main complaint and problem seems to be lack of pain control. He is supposed to be taking Percocet 10 mg but has not been able to be refilled. He will be given a prescription for short timeframe of Percocet 10 until he is able to get this filled. He is on oxygen at home and is on his baseline oxygen here. Stable for discharge. Return if worsening or concerning symptoms. Of note, chest x-ray showing pleural effusion at baseline. (RONALD SHAY) - Vital Signs Vital signs: Temp Pulse Resp BP Pulse Ox 97.7 F 64 15 138/75 H 97 01/29/18 22:48 01/29/18 22:48 01/29/18 22:48 01/29/18 22:48 01/29/18 22:48 - Laboratory Laboratory results interpreted by me: 01/29/18 01/29/18 01/29/18 17:45 17:45 17:45 RBC 3.01 L Hgb 8.8 L Hct 26.8 L RDW 16.8 H Carbon Dioxide 36 H BUN 38 H Creatinine 1.49 H Est GFR ( Amer) 56 L Est GFR (Non-Af Amer) 46 L ALT 18 L Creatine Kinase 39 L NT-Pro-B Natriuret Pep 3160 H Discharge <MARICHUY BRWON - Last Filed: 01/29/18 20:28> <RONALD SHAY - Last Filed: 01/30/18 03:40> - Discharge Clinical Impression: Acute exacerbation of chronic low back pain Condition: Stable Disposition: HOME, SELF-CARE Additional Instructions: Please call your pain management doctor in the morning. Prescriptions: Oxycodone HCl/Acetaminophen [Percocet 10-325 Mg Tablet] 1 each PO TIDP PRN #10 tablet PRN Reason: Referrals: MAURICE ORTIZ DO [Primary Care Provider] - Follow up tomorrow Scribe Attestation: 01/30/18 03:40 I personally performed the services described in the documentation, reviewed and edited the documentation which was dictated to the scribe in my presence, and it accurately records my words and actions. (RONALD SHAY) Scribe Documentation - Scribe Written by Scribe:: Ge Willard, 01/29/20182004 acting as scribe for :: Silvina <MARICHUY BROWN - Last Filed: 01/29/18 20:28>
[2018-01-29] MEDS ORDERED: FUROSEMIDE INJ/PF 20 MG/2 ML SDV IV ONE (19:24)
[2018-01-29] MEDS ORDERED: FENTANYL CITRATE INJ/PF 100 MCG/2 ML AMPUL IV ONE ×2 (19:26→22:13)
[2018-01-29 22:49] VITALS: BP 138/75
[2018-01-29] MEDS ORDERED: OXYCODONE-ACETAMINOPHEN 5-325 MG TABLET PO ONE (23:38)
--- NOTE | 2018-01-30 06:57 | EKG REPORT ---
SEVERITY:- ABNORMAL ECG - ATRIAL-VENTRICULAR DUAL-PACED RHYTHM : Confirmed by: Farzana Still 30-Jan-2018 06:56:32
== END 2018-01-30 00:40 | disposition home or self-care (01) ==
LOC: ER 17:26
DX: G89.29 Other chronic pain (principal); M54.5 Low back pain; T40.2X6A Underdosing of other opioids, initial encounter; Z91.128 Patient's intentional underdosing of medication regimen for other reason; Z91.14 Patient's other noncompliance with medication regimen; I11.0 Hypertensive heart disease with heart failure; I50.9 Heart failure, unspecified; J44.9 Chronic obstructive pulmonary disease, unspecified; Z99.81 Dependence on supplemental oxygen; R09.02 Hypoxemia; R06.02 Shortness of breath; R10.10 Upper abdominal pain, unspecified; J90 Pleural effusion, not elsewhere classified; R07.9 Chest pain, unspecified; R29.6 Repeated falls; I48.91 Unspecified atrial fibrillation; Z86.711 Personal history of pulmonary embolism; Z79.01 Long term (current) use of anticoagulants; Z87.891 Personal history of nicotine dependence; Z95.1 Presence of aortocoronary bypass graft; Z98.890 Other specified postprocedural states
CPT/HCPCS: 93005; 96376; 99285; 96374; 96375; 36415; 82553; 82550; 85025; 80053; 84484; 83880; 71045; 93010; J3010; J1940; A9270

== ENCOUNTER 2018-01-30 22:03 | Emergency (ER) | payer MEDICARE, MEDICAID ==
--- NOTE | 2018-01-30 22:53 | ER Document Report ---
ED Extremity Problem, Lower - General Chief Complaint: Knee Pain Stated Complaint: LEFT KNEE PAIN Time Seen by Provider: 01/30/18 22:51 Mode of Arrival: Medic Information source: Patient TRAVEL OUTSIDE OF THE [place] IN LAST 30 DAYS: No - HPI Patient complains to provider of: Pain Location: Knee Occurred: Other - 72-year-old man who presents for evaluation after mechanical fall while plywood slipped underneath his foot landed on his left knee had pain immediately thereafter. Had difficulty getting up difficulty ambulating. He generally needs at least a walker and sometimes a wheelchair to get around. Since that time nothing seemed to make it any better, movement seems to make it worse he has not taken anything to try and help with the pain since it happened he did call an ambulance immediately thereafter. Denies any loss of consciousness or damage to his head. - Related Data Allergies/Adverse Reactions: No Known Allergies Allergy (Verified 01/10/18 10:34) Past Medical History - General Information source: Patient - Social History Smoking Status: Current Every Day Smoker Frequency of alcohol use: None Drug Abuse: None Family History: Reviewed & Not Pertinent, CAD, COPD, Hypertension - Past Medical History Cardiac Medical History: Reports: Hx Atrial Fibrillation, Hx Congestive Heart Failure, Hx Coronary Artery Disease, Hx Heart Attack, Hx Hypercholesterolemia, Hx Hypertension, Hx Pulmonary Embolism Pulmonary Medical History: Reports: Hx COPD Neurological Medical History: Denies: Hx Seizures Endocrine Medical History: Denies: Hx Diabetes Mellitus Type 2 - History of same , but only on medication for short time. Renal/ Medical History: Denies: Hx End Stage Renal Disease, Hx Peritoneal Dialysis GI Medical History: Denies: Hx Crohn's Disease, Hx Ulcerative Colitis Musculoskeletal Medical History: Reports Hx Arthritis Skin Medical History: Denies Hx Psoriasis Psychiatric Medical History: Reports: Hx Depression Traumatic Medical History: Denies: Hx Traumatic Brain Injury Past Surgical History: Reports: Hx Cardiac Catheterization, Hx Cardiac Surgery - Pacemaker-removed due to infection, Hx Coronary Artery Bypass Graft, Hx Coronary Stent, Hx Internal Defibrillator, Hx Pacemaker - Battery change out and then explantation., Hx Tonsillectomy - Immunizations Hx Diphtheria, Pertussis, Tetanus Vaccination: No - >5 YRS Hx Pneumococcal Vaccination: 03/27/11 Review of Systems - Review of Systems -: Yes All other systems reviewed and negative Physical Exam - Vital signs Vitals: Pulse Ox 92 01/30/18 22:25 - General General appearance: Appears well In distress: None - HEENT Head: Normocephalic Eyes: Normal Mouth/Lips: Other - halitosis - Respiratory Respiratory status: No respiratory distress Chest status: Nontender Breath sounds: Normal Chest palpation: Normal - Cardiovascular Rhythm: Regular Heart sounds: Normal auscultation - Abdominal Inspection: Normal Distension: No distension Bowel sounds: Normal - Back Back: Normal - Extremities General upper extremity: Normal inspection General lower extremity: Other - The lower extremities are symmetric, the pelvis is stable, there is no range of motion at the hips, there is normal range of motion in the right knee without any obvious effusion, diminished range of motion the left knee secondary to pain, no obvious effusion, the patella is normal non-ballotable, there is 5 out of 5 strength in the extensors and flexors bilaterally in the quadriceps and hamstrings as well as gastrocnemius Course - Re-evaluation Re-evalutation: 01/31/18 01:24 72-year-old man who presents after falling on his knee, given that he is difficulty ambulating at baseline uses a wheelchair and a walker intermittently believe his difficulty and ambulating in the emergency room is likely a combination of chronic disease and his new acute pain. We will plan for x-rays to assess for possible bony injury. No obvious bony injury identified, reassessment does not demonstrate any laxity in the knee. Patient at his baseline level of functioning will give a brief prescription for pain medication as he does not have a appointment with his doctor for 1 week. - Vital Signs Vital signs: Temp Pulse Resp BP Pulse Ox 15 123/67 96 01/30/18 22:48 01/30/18 22:30 01/30/18 22:30 Discharge - Discharge Clinical Impression: Knee pain Condition: Good Disposition: HOME, SELF-CARE Instructions: Sprained Knee ([facility]), Oral Narcotic Medication ([facility]) Additional Instructions: Use the pain medication prescribed to use only as needed, call your doctor tomorrow for an appointment if you need us sooner pain prescription. Use your wheelchair and walker to help get around. Talk to her home health aide about doing some rehab to help with your pain. Return for any inability to move around worsening fevers or chills swelling or pain. Prescriptions: Hydrocodone/Acetaminophen [Harviell 5-325 mg Tabs (6 Tab/ER Disp)] 6 tab PO Q8 #6 dspk Referrals: MAURICE ORTIZ DO [Primary Care Provider] - Follow up as needed
--- NOTE | 2018-01-30 23:26 | RADIOLOGY REPORT (SQ) ---
EXAM DESCRIPTION: XR KNEE 3 VIEWS COMPLETED DATE/TME: 01/30/2018 22:52 CLINICAL HISTORY: 72 years Male, knee pain pose fall COMPARISON: None. Findings: Mild osteoarthritis of the medial and patellofemoral compartments with small osteophytes, small superior patellar enthesophyte, atherosclerosis, small effusion, surgical clips medial to the proximal left tibia, mild chondral calcinosis.. Bones, joints, and soft tissues of the LEFT XR KNEE 4 VIEWS appear otherwise intact. IMPRESSION: Small left knee effusion.
[2018-01-30] MEDS ORDERED: OXYCODONE-ACETAMINOPHEN 5-325 MG TABLET PO ONE (23:56)
[2018-01-31 01:17] VITALS: BP 134/77
[2018-01-31] MEDS ORDERED: HYDROCODONE/ACETAMINOPHEN 5-325 MG (6 TAB/ER DISP) PO PRN (01:18)
== END 2018-01-31 01:29 | disposition home or self-care (01) ==
LOC: ER 22:03
DX: M25.562 Pain in left knee (principal); F17.200 Nicotine dependence, unspecified, uncomplicated; I48.91 Unspecified atrial fibrillation; I50.9 Heart failure, unspecified; E78.00 Pure hypercholesterolemia, unspecified; I11.0 Hypertensive heart disease with heart failure; I25.2 Old myocardial infarction; Z86.711 Personal history of pulmonary embolism; Z95.0 Presence of cardiac pacemaker
CPT/HCPCS: 99283; 73562; A9270 ×2

== ENCOUNTER 2018-02-03 08:27 | Inpatient (IN) | payer MEDICARE, MEDICAID ==
[2018-02-03] MEDS ORDERED: FUROSEMIDE INJ/PF 100 MG/10 ML SDV IV ONE (08:51)
[2018-02-03 08:55] LABS: ABSOLUTE EOSINOPHILS # (AUTO) 0.3 10^3/uL (0.0-0.6); ABSOLUTE LYMPHOCYTES (AUTO) 1.3 10^3/uL (0.5-4.7); ABSOLUTE MONOCYTES (AUTO) 0.7 10^3/uL (0.1-1.4); ABSOLUTE NEUT (AUTO) 3.3 10^3/uL (1.7-8.2); BASOPHILS % (AUTO) 0.7 % (0-2); EOSINOPHILS % (AUTO) 5.5 % (0-6); HEMATOCRIT 26.7 % (37.9-51.0); HEMOGLOBIN 8.6 g/dL (13.5-17.0); LYMPHOCYTES % (AUTO) 22.6 % (13-45); MEAN CORPUSCULAR HEMOGLOBIN 28.9 pg (27.0-33.4); MEAN CORPUSCULAR HGB CONC 32.2 g/dL (32.0-36.0); MEAN CORPUSCULAR VOLUME 90 fl (80-97); MONOCYTES % (AUTO) 11.9 % (3-13); PLATELET COUNT 214 10^3/uL (150-450); RED BLOOD COUNT 2.98 10^6/uL (4.35-5.55); RED CELL DISTRIBUTION WIDTH 16.9 % (11.5-14.0); SEGMENTED NEUTROPHILS % (AUTO) 59.3 % (42-78); TOTAL CELLS COUNTED % (AUTO) 100 %; WHITE BLOOD COUNT 5.6 10^3/uL (4.0-10.5)
--- NOTE | 2018-02-03 09:00 | ER Document Report ---
ED Respiratory Problem <SARAHNICOLE - Last Filed: 02/03/18 10:46> - General Mode of Arrival: Ambulatory Information source: Patient TRAVEL OUTSIDE OF THE [place] IN LAST 30 DAYS: No <MARICHUY BROWN - Last Filed: 02/03/18 12:28> - General Chief Complaint: Respiratory Distress Stated Complaint: DIFFICULTY BREATHING Time Seen by Provider: 02/03/18 08:41 Notes: 72-year-old male that presents to the emergency department today with complaints of mild to moderate respiratory distress. Patient has been in and out of the hospital multiple times recently relating to CHF. Patient complains of bilateral leg swelling as well. Patient states he has been compliant with low-salt intake diet but this is questionable. (MARICHUY BROWN) - Related Data Allergies/Adverse Reactions: No Known Allergies Allergy (Verified 01/10/18 10:34) Past Medical History - General Information source: Patient - Social History Smoking Status: Never Smoker Cigarette use (# per day): No Frequency of alcohol use: None Drug Abuse: None Lives with: Family Family History: Reviewed & Not Pertinent, CAD, COPD, Hypertension - Past Medical History Cardiac Medical History: Reports: Hx Atrial Fibrillation, Hx Congestive Heart Failure, Hx Coronary Artery Disease, Hx Heart Attack, Hx Hypercholesterolemia, Hx Hypertension, Hx Pulmonary Embolism Pulmonary Medical History: Reports: Hx COPD Musculoskeletal Medical History: Reports Hx Arthritis Psychiatric Medical History: Reports: Hx Depression Past Surgical History: Reports: Hx Cardiac Catheterization, Hx Cardiac Surgery - Pacemaker-removed due to infection, Hx Coronary Artery Bypass Graft, Hx Coronary Stent, Hx Internal Defibrillator, Hx Pacemaker - Battery change out and then explantation., Hx Tonsillectomy - Immunizations Hx Diphtheria, Pertussis, Tetanus Vaccination: No - >5 YRS Hx Pneumococcal Vaccination: 03/27/11 <MARICHUY BROWN - Last Filed: 02/03/18 12:28> Review of Systems - Review of Systems Constitutional: No symptoms reported EENT: No symptoms reported Cardiovascular: See HPI, Other - CHF Respiratory: See HPI, Short of breath Gastrointestinal: No symptoms reported Genitourinary: No symptoms reported Male Genitourinary: No symptoms reported Musculoskeletal: No symptoms reported Skin: No symptoms reported Hematologic/Lymphatic: No symptoms reported Neurological/Psychological: No symptoms reported -: Yes All other systems reviewed and negative <MARICHUY BROWN - Last Filed: 02/03/18 12:28> Physical Exam <NICOLE SMITH - Last Filed: 02/03/18 10:46> <MARICHUY BROWN - Last Filed: 02/03/18 12:28> - Vital signs Vitals: Resp 7 L 02/03/18 08:30 - Notes Notes: Physical Exam: General: Alert. HEENT: Normocephalic. Atraumatic. PERRL. Extraocular movements intact. Oropharynx clear. Neck: Supple. Non-tender. Respiratory: Mild to moderate respiratory distress. Rales in the lower to mid lung molina bilaterally. Cardiovascular: Regular rate and rhythm. Abdominal: Normal Inspection. Non-tender. No distension. Normal Bowel Sounds. Back: Non-tender. No deformity or step off. Extremities: Moves all four extremities. Upper extremities: Normal inspection. Normal ROM. Lower extremities: 3+ pitting edema bilaterally. Neurological: Normal cognition. AAOx4. Normal speech. Psychological: Normal affect. Normal Mood. Skin: Warm. Dry. Normal color. (MARICHUY BROWN) Course - Laboratory Result Diagrams: 02/03/18 08:35 02/03/18 08:35 - Diagnostic Test Radiology reviewed: Image reviewed, Reports reviewed - Chest x-ray shows cardiomegaly with pulmonary vascular congestion and a moderately large left pleural effusion. - EKG Interpretation by Ne EKG shows normal: Justin, Intervals, QRS Complexes, ST-T Waves Rate: Normal - 60 Rhythm: Other - Atrial ventricular dual paced complexes When compared to previous EKG there are: No significant change - Consults Dr. Morales Time consulted: 10:50 Consulted provider: will come to ER <NICOLE SMITH - Last Filed: 02/03/18 10:46> - Laboratory Result Diagrams: 02/03/18 08:35 02/03/18 08:35 <MARICHUY BROWN - Last Filed: 02/03/18 12:28> - Re-evaluation Re-evalutation: 02/03/18 10:20 This time the patient is sound asleep, laying flat on his back, with BiPAP on. He has had about 300 mL's of urine in the Tapia bag at this point. (NICOLE SMITH) - Vital Signs Vital signs: Temp Pulse Resp BP Pulse Ox 97.7 F 16 138/66 H 96 02/03/18 10:01 02/03/18 12:08 02/03/18 10:01 02/03/18 12:08 - Laboratory Laboratory results interpreted by me: 02/03/18 02/03/18 02/03/18 08:35 08:35 08:35 RBC 2.98 L Hgb 8.6 L Hct 26.7 L RDW 16.9 H Carbon Dioxide 35 H BUN 48 H Creatinine 1.66 H Est GFR ( Amer) 49 L Est GFR (Non-Af Amer) 41 L ALT 18 L Creatine Kinase 47 L NT-Pro-B Natriuret Pep 4450 H Urine Blood Urine Urobilinogen Ur Leukocyte Esterase 02/03/18 09:05 RBC Hgb Hct RDW Carbon Dioxide BUN Creatinine Est GFR ( Amer) Est GFR (Non-Af Amer) ALT Creatine Kinase NT-Pro-B Natriuret Pep Urine Blood SMALL H Urine Urobilinogen 2.0 H Ur Leukocyte Esterase TRACE H Critical Care Note - Critical Care Note Total time excluding time spent on procedures (mins): 35 <NICOLE SMITH - Last Filed: 02/03/18 10:46> Discharge - Discharge Admitting Provider: Hospitalist Unit Admitted: IMCU <NICOLE SMITH - Last Filed: 02/03/18 10:46> <MARICHUY BROWN - Last Filed: 02/03/18 12:28> - Discharge Clinical Impression: Obstructive sleep apnea, Pleural effusion, Obesity hypoventilation syndrome, Morbid obesity with BMI of 40.0-44.9, adult Congestive heart failure Qualifiers: Heart failure type: unspecified Heart failure chronicity: acute on chronic Qualified Code(s): I50.9 - Heart failure, unspecified Anemia Qualifiers: Anemia type: unspecified type Qualified Code(s): D64.9 - Anemia, unspecified Condition: Stable Disposition: ADMITTED INPATIENT Referrals: MAURICE ORTIZ DO [Primary Care Provider] - Follow up as needed Scribe Attestation: 02/03/18 09:52 I personally performed the services described in the documentation, reviewed and edited the documentation which was dictated to the scribe in my presence, and it accurately records my words and actions. (NICOLE SMITH) Scribe Documentation - Scribe Written by Scribe:: Ge Willard, 02/03/2018 1228 acting as scribe for :: Sarah <MARICHUY BROWN - Last Filed: 02/03/18 12:28>
[2018-02-03 09:20] LABS: ALANINE AMINOTRANSFERASE 18 U/L (21-72); ALBUMIN 3.6 g/dL (3.5-5.0); ALKALINE PHOSPHATASE 68 U/L (38-126); ANION GAP 11 (5-19); ASPARTATE AMINO TRANSFERASE 30 U/L (17-59); BILIRUBIN,DIRECT 0.4 mg/dL (0.0-0.4); BILIRUBIN,TOTAL 0.5 mg/dL (0.2-1.3); BLOOD UREA NITROGEN 48 mg/dL (7-20); CALCIUM 8.8 mg/dL (8.4-10.2); CARBON DIOXIDE 35 mmol/L (22-30); CHLORIDE 99 mmol/L (98-107); CREATINE KINASE 47 U/L (55-170); GLUCOSE 108 mg/dL (75-110); POTASSIUM 4.5 mmol/L (3.6-5.0); SODIUM 144.8 mmol/L (137-145); TOTAL PROTEIN 7.8 g/dL (6.3-8.2)
[2018-02-03 09:29] LABS: CREATINE KINASE MB 1.26 ng/mL (<4.55); TROPONIN I 0.015 ng/mL
--- NOTE | 2018-02-03 09:44 | RADIOLOGY REPORT (SQ) ---
EXAM DESCRIPTION: CHEST SINGLE VIEW COMPLETED DATE/TIME: 02/03/2018 9:12 am REASON FOR STUDY: SOB COMPARISON: 01/29/2018 and 01/17/2018. NUMBER OF VIEWS: One view. TECHNIQUE: Single frontal radiographic view of the chest acquired. LIMITATIONS: None. FINDINGS: LUNGS AND PLEURA: Moderately large left pleural effusion, similar to prior studies. Diffu se vascular congestion. MEDIASTINUM AND HILAR STRUCTURES: No masses or contour abnormality. HEART AND VASCULATURE: Cardiac enlargement. Vascular congestion. BONES: No acute findings. HARDWARE: Sternotomy wires, left atrial clip, defibrillator. OTHER: No other significant finding. IMPRESSION: CARDIOMEGALY WITH VASCULAR CONGESTION. MODERATELY LARGE LEFT PLEURAL EFFUSION. NO [place] GE FROM PRIOR STUDIES. TECHNICAL DOCUMENTATION: JOB ID: [id number] [employer]- All Rights Reserved Reading location - IP/workstation name: [facility]
[2018-02-03 09:52] LABS: APPEARANCE,URINE CLEAR; BILIRUBIN,URINE NEGATIVE (NEGATIVE); COLOR,URINE YELLOW; GLUCOSE, URINE NEGATIVE (NEGATIVE); KETONES,URINE NEGATIVE (NEGATIVE); LEUKOCYTE ESTERASE,URINE TRACE (NEGATIVE); NITRITE,URINE NEGATIVE (NEGATIVE); PROTEIN,URINE NEGATIVE (NEGATIVE); URINE SPECIFIC GRAVITY 1.014
--- NOTE | 2018-02-03 09:54 | EKG REPORT ---
SEVERITY:- ABNORMAL ECG - ATRIAL-VENTRICULAR DUAL-PACED COMPLEXES : Confirmed by: Barbara Ann MD 03-Feb-2018 09:54:09
[2018-02-03] MEDS ORDERED: ALBUTEROL SULFATE 0.083% NEB 2.5 MG/3 ML AMPUL NEB PRN (12:45)
[2018-02-03] MEDS ORDERED: ACETAMINOPHEN 325 MG TABLET PO PRN (12:45)
[2018-02-03] MEDS ORDERED: ONDANSETRON HCL INJ/PF 4 MG/2 ML SDV IV PRN (12:45)
[2018-02-03] MEDS: IPRATROPIUM/ALBUTEROL 0.5-2.5 MG/3 ML AMPUL NEB SCH ×2 (14:07→20:16)
[2018-02-03] MEDS: OXYCODONE-ACETAMINOPHEN 5-325 MG TABLET PO PRN (18:43)
--- NOTE | 2018-02-03 18:57 | PDOC H&P ---
History of Present Illness Admission Date/PCP: 02/03/18 12:45 MAURICE ORTIZ DO Patient complains of: Difficulty breathing and shortness of breath as well as leg swelling History of Present Illness: DANIEL OLIVA is a 72 year old male This patient presents emergency room with complaints of difficulty breathing and shortness of breath. This is 1 of many admissions for this gentleman with recurrent episodes of CHF. He complains of bilateral leg swelling. Patient's son states that they do not have a scale and so he is unable to weigh himself. Fact they told me that the have had no CHF education and with no recurrence of most of the tenets of managing CHF. He was on BiPAP which he also uses at home. I discussed his CODE STATUS with his son and he tells me that he is also unaware of his father's wishes or any discussions about the CODE STATUS. Currently patient is a full code. Patient just had an echocardiogram done in November 2017 which revealed left ventricular size to be normal with estimated LVEF of 65%. A CT scan that was done in December 2017 revealed moderate left subpulmonic effusion as well as consolidation and collapse of the left lower lobe. Chest x-ray done today reveals splenomegaly with vascular congestion as well as moderately large left pleural effusion. Thoracentesis was done on December 29 with 1 L of clear straw-colored fluid removed. Patient however has had subsequent x-ray after there is still showing large volume of pleural effusion and this may be responsible for his recurrent respiratory failure Past Medical History Cardiac Medical History: Reports: Atrial Fibrillation, Congestive Heart Failure , Coronary Artery Disease, Myocardial Infarction, Hyperlipidema, Hypertension, Pulmonary Embolism Pulmonary Medical History: Reports: Chronic Obstructive Pulmonary Disease (COPD) Neurological Medical History: Denies: Seizures Endocrine Medical History: Denies: Diabetes Mellitus Type 2 - History of same, but only on medication for short time. Renal/ Medical History: Denies: End Stage Renal Disease GI Medical History: Denies: Crohn's Disease, Ulcerative Colitis Musculoskeltal Medical History: Reports: Arthritis Skin Medical History: Denies: Psoriasis Psychiatric Medical History: Reports: Depression Traumatic Medical History: Denies: Traumatic Brain Injury Hematology: Denies: Hemophilia, Sickle Cell Disease Past Surgical History Past Surgical History: Reports: Cardiac Catheterization, Coronary Artery Bypass Graft, Coronary Stent, Internal Defibrillator, Pacemaker - Battery change out and then explantation., Tonsillectomy Social History Lives with: Family Smoking Status: Former Smoker Frequency of Alcohol Use: Rare Hx Recreational Drug Use: No Drugs: None Hx Prescription Drug Abuse: No - Advance Directive Resuscitation Status: Full Code Family History Family History: Reviewed & Not Pertinent, CAD, COPD, Hypertension Parental Family History Reviewed: No Children Family History Reviewed: Yes Sibling(s) Family History Reviewed.: Yes Medication/Allergy Home Medications: Amiodarone HCl [Cordarone 200 mg Tablet] 200 mg PO DAILY 02/03/18 Apixaban [Eliquis 5 mg Tablet] 5 mg PO Q12 02/03/18 Aspirin [Adult Low Dose Aspirin EC] 81 mg PO QAM 02/03/18 Atorvastatin Calcium [Lipitor 40 mg Tablet] 40 mg PO QHS 02/03/18 Furosemide [Lasix 40 mg Tablet] 40 mg PO BIDP PRN 02/03/18 Methocarbamol [Robaxin 750 mg Tablet] 750 mg PO Q6HP PRN 02/03/18 Omeprazole 20 mg PO QAM 02/03/18 Oxycodone HCl/Acetaminophen [Percocet 10-325 mg Tablet] 1 tab PO Q6HP PRN Sertraline HCl [Zoloft 50 mg Tablet] 50 mg PO DAILY 02/03/18 Torsemide [Demadex 20 mg Tablet] 20 mg PO DAILY 02/03/18 Umeclidinium Brm/Vilanterol Tr [Anoro Ellipta 62.5-25 Mcg INH] 1 puff IH QAM 04/13 Allergies/Adverse Reactions: No Known Allergies Allergy (Verified 01/10/18 10:34) Review of Systems All systems: reviewed and no additional remarkable complaints except as stated Physical Exam Vital Signs: Temp Pulse Resp BP Pulse Ox 97.2 F 60 27 H 133/67 H 96 02/03/18 14:47 02/03/18 14:53 02/03/18 16:10 02/03/18 14:47 02/03/18 16:10 Intake & Output 02/02/18 02/03/18 02/04/18 06:59 06:59 06:59 Intake Total 0 Output Total 1300 Balance -1300 Weight 129.5 kg General appearance: PRESENT: no acute distress, morbidly obese, well-developed, well-nourished Head exam: PRESENT: atraumatic, normocephalic Eye exam: PRESENT: conjunctiva pink. ABSENT: scleral icterus Ear exam: PRESENT: normal external ear exam Mouth exam: PRESENT: moist, tongue midline Neck exam: ABSENT: carotid bruit, JVD, lymphadenopathy, thyromegaly Respiratory exam: PRESENT: clear to auscultation shivani. ABSENT: rales, rhonchi, wheezes Cardiovascular exam: PRESENT: RRR, +S1, +S2. ABSENT: diastolic murmur, rubs, systolic murmur Pulses: PRESENT: normal dorsalis pedis pul, +2 pedal pulses bilateral Vascular exam: PRESENT: normal capillary refill GI/Abdominal exam: PRESENT: normal bowel sounds, soft. ABSENT: distended, guarding, mass, organolmegaly, rebound, tenderness Rectal exam: PRESENT: deferred Extremities exam: PRESENT: full ROM, joint swelling, +2 edema - Knee. ABSENT: calf tenderness, clubbing, pedal edema Neurological exam: PRESENT: alert, awake, oriented to person, oriented to place , oriented to time, oriented to situation, CN II-XII grossly intact. ABSENT: motor sensory deficit Psychiatric exam: PRESENT: appropriate affect, normal mood. ABSENT: homicidal ideation, suicidal ideation Skin exam: PRESENT: dry, intact, warm. ABSENT: cyanosis, rash Results Impressions: Chest X-Ray 02/03/18 08:47 IMPRESSION: CARDIOMEGALY WITH VASCULAR CONGESTION. MODERATELY LARGE LEFT PLEURAL EFFUSION. NO CHANGE FROM PRIOR STUDIES. Assessment & Plan - Diagnosis (1) Acute respiratory failure Qualifiers: Respiratory failure complication: hypoxia Qualified Code(s): J96.01 - Acute respiratory failure with hypoxia (2) Anemia Qualifiers: Anemia type: unspecified type Qualified Code(s): D64.9 - Anemia, unspecified Is this a current diagnosis for this admission?: Yes Plan: This is chronic and his hemoglobin is really close to his baseline (3) CHF (congestive heart failure) Qualifiers: Heart failure type: diastolic Heart failure chronicity: acute on chronic Qualified Code(s): I50.33 - Acute on chronic diastolic (congestive) heart failure Is this a current diagnosis for this admission?: Yes Plan: Ejection fraction is about 65%. Patient at best has a diastolic dysfunction. This is chronic with acute exacerbation (4) Pleural effusion Is this a current diagnosis for this admission?: Yes Plan: We will plan for thoracentesis as soon as possible. Will hold apixaban as well as aspirin once scheduled (5) Acute on chronic diastolic (congestive) heart failure Is this a current diagnosis for this admission?: Yes - Time Time Spent: 50 to 70 Minutes Medications reviewed and adjusted accordingly: Yes Anticipated discharge: Home Within: within 72 hours - Inpatient Certification Based on my medical assessment, after consideration of the patient's comorbidities, presenting symptoms, or acuity I expect that the services needed warrant INPATIENT care.: Yes Medical Necessity: Need For Continuous Telemetry Monitoring, Risk of Complication if Not Cared For in Hospital, Risk of Diagnosis Which Will Require Inpatient Eval/Care/Monitoring
[2018-02-03] MEDS ORDERED: OXYCODONE HCL IR 5 MG TABLET ONE (19:54)
[2018-02-03 19:57] LABS: INTERNATIONAL RATION (INR) 1.19; PROTHROMBIN TIME 15.7 SEC (11.4-15.4)
[2018-02-03 19:58] LABS: PARTIAL THROMBOPLASTIN TIME 32.5 SEC (23.5-35.8)
[2018-02-03] MEDS: FAMOTIDINE 20 MG TABLET PO SCH (21:29)
[2018-02-03] MEDS: APIXABAN 5 MG TABLET PO SCH (21:29)
[2018-02-03] MEDS: FUROSEMIDE INJ/PF 40 MG/4 ML SDV IV SCH (21:29)
[2018-02-03] MEDS: ATORVASTATIN CALCIUM 40 MG TABLET PO SCH (21:29)
[2018-02-04] MEDS: OXYCODONE HCL IR 5 MG TABLET PO PRN ×4 (01:10→22:02)
[2018-02-04] MEDS: OXYCODONE-ACETAMINOPHEN 5-325 MG TABLET PO PRN ×4 (01:11→22:01)
[2018-02-04] MEDS: IPRATROPIUM/ALBUTEROL 0.5-2.5 MG/3 ML AMPUL NEB SCH ×4 (02:02→20:12)
[2018-02-04 05:42] LABS: ABSOLUTE BASOPHILS # (AUTO) 0.1 10^3/uL (0.0-0.2); ABSOLUTE EOSINOPHILS # (AUTO) 0.3 10^3/uL (0.0-0.6); ABSOLUTE LYMPHOCYTES (AUTO) 1.4 10^3/uL (0.5-4.7); ABSOLUTE MONOCYTES (AUTO) 0.6 10^3/uL (0.1-1.4); ABSOLUTE NEUT (AUTO) 2.8 10^3/uL (1.7-8.2); BASOPHILS % (AUTO) 1.2 % (0-2); EOSINOPHILS % (AUTO) 5.1 % (0-6); HEMATOCRIT 26.6 % (37.9-51.0); HEMOGLOBIN 8.7 g/dL (13.5-17.0); LYMPHOCYTES % (AUTO) 27.2 % (13-45); MEAN CORPUSCULAR HEMOGLOBIN 28.9 pg (27.0-33.4); MEAN CORPUSCULAR HGB CONC 32.7 g/dL (32.0-36.0); MEAN CORPUSCULAR VOLUME 88 fl (80-97); MONOCYTES % (AUTO) 12.5 % (3-13); PLATELET COUNT 162 10^3/uL (150-450); RED BLOOD COUNT 3.01 10^6/uL (4.35-5.55); RED CELL DISTRIBUTION WIDTH 16.9 % (11.5-14.0); TOTAL CELLS COUNTED % (AUTO) 100 %; WHITE BLOOD COUNT 5.2 10^3/uL (4.0-10.5)
[2018-02-04 05:52] LABS: ANION GAP 9 (5-19); BLOOD UREA NITROGEN 49 mg/dL (7-20); CALCIUM 8.7 mg/dL (8.4-10.2); CARBON DIOXIDE 38 mmol/L (22-30); CHLORIDE 99 mmol/L (98-107); GLUCOSE 100 mg/dL (75-110); POTASSIUM 4.4 mmol/L (3.6-5.0); SODIUM 145.7 mmol/L (137-145)
[2018-02-04] MEDS ORDERED: (PENDING PHARMACY ID) (Umeclidinium Brm/Vilanterol Tr [Anoro Ellipta 62.5-25 Mcg Inh] 1 PU IH SCH (08:00)
[2018-02-04] MEDS: AMIODARONE HCL 200 MG TABLET PO SCH (09:26)
[2018-02-04] MEDS: DOCUSATE SODIUM 100 MG CAPSULE PO SCH (09:26)
[2018-02-04] MEDS: SERTRALINE HCL 50 MG TABLET PO SCH (09:26)
[2018-02-04] MEDS: FUROSEMIDE INJ/PF 40 MG/4 ML SDV IV SCH ×3 (09:26→22:04)
[2018-02-04] MEDS: FAMOTIDINE 20 MG TABLET PO SCH ×2 (09:26→22:03)
[2018-02-04] MEDS ORDERED: ENOXAPARIN SODIUM INJ 40 MG/0.4 ML DISP.SYRIN SUBCUT SCH (10:00)
[2018-02-04] MEDS: APIXABAN 5 MG TABLET PO SCH (10:22)
[2018-02-04] MEDS: ASPIRIN 81 MG TABLET, ENT COATED PO SCH (10:22)
[2018-02-04 11:17] LABS: ARTERIAL BLOOD BASE EXCESS 9.4 mmol/L; ARTERIAL BLOOD H2CO3 2.05 mmol/L (1.05-1.35); ARTERIAL BLOOD HCO3 36.8 mmol/L (20-26); ARTERIAL BLOOD O2 SATURATION 86.1 % (94-98); ARTERIAL BLOOD PCO2 68.1 mmHg (35-45); ARTERIAL BLOOD PH 7.35 (7.35-7.45); ARTERIAL BLOOD PO2 55.3 mmHg (80-100); ARTERIAL BLOOD TOTAL CO2 38.9 mmol/L (23-27)
[2018-02-04 11:18] LABS: ARTERIAL BLOOD FIO2 4
--- NOTE | 2018-02-04 12:47 | PDOC PROGRESS REPORT ---
Subjective Progress Note for:: 02/04/18 Subjective:: Patient reports feeling better today. His breathing is improved and is currently off his BiPAP. It appears the swelling is improving to Reason For Visit: ACUTE RESPIRATORY FAILURE CHF Physical Exam Vital Signs: Temp Pulse Resp BP Pulse Ox 98.0 F 65 17 107/49 L 97 02/04/18 08:15 02/04/18 08:28 02/04/18 08:28 02/04/18 08:15 02/04/18 08:28 Intake & Output 02/03/18 02/04/18 02/05/18 06:59 06:59 06:59 Intake Total 458 Output Total 2275 Balance -1817 Weight 130.5 kg General appearance: PRESENT: cooperative, disheveled, morbidly obese, well- developed Teeth exam: PRESENT: poor dentation Respiratory exam: PRESENT: decreased breath sounds, rales, unlabored. ABSENT: rhonchi, wheezes Cardiovascular exam: PRESENT: RRR, +S1, +S2 Rectal exam: PRESENT: deferred Extremities exam: PRESENT: pedal edema, other - 3+ edema Skin exam: PRESENT: rash Results Laboratory Results: 02/04/18 05:23 02/04/18 05:23 02/04/18 02/04/18 02/04/18 05:23 05:23 11:10 WBC 5.2 RBC 3.01 L Hgb 8.7 L Hct 26.6 L MCV 88 MCH 28.9 MCHC 32.7 RDW 16.9 H Plt Count 162 Seg Neutrophils % 54.0 Lymphocytes % 27.2 Monocytes % 12.5 Eosinophils % 5.1 Basophils % 1.2 Absolute Neutrophils 2.8 Absolute Lymphocytes 1.4 Absolute Monocytes 0.6 Absolute Eosinophils 0.3 Absolute Basophils 0.1 Carbonic Acid 2.05 H HCO3/H2CO3 Ratio 17:1 ABG pH 7.35 ABG pCO2 68.1 H ABG pO2 55.3 L ABG HCO3 36.8 H ABG O2 Saturation 86.1 L ABG Base Excess 9.4 FiO2 4 Sodium 145.7 H Potassium 4.4 Chloride 99 Carbon Dioxide 38 H Anion Gap 9 BUN 49 H Creatinine 1.66 H Est GFR ( Amer) 49 L Est GFR (Non-Af Amer) 41 L Glucose 100 Calcium 8.7 02/04/18 05:23 Troponin I 0.016 Impressions: Chest X-Ray 02/03/18 08:47 IMPRESSION: CARDIOMEGALY WITH VASCULAR CONGESTION. MODERATELY LARGE LEFT PLEURAL EFFUSION. NO CHANGE FROM PRIOR STUDIES. Assessment & Plan - Diagnosis (1) Acute respiratory failure Qualifiers: Respiratory failure complication: hypoxia and hypercapnia Qualified Code(s) : J96.01 - Acute respiratory failure with hypoxia; J96.02 - Acute respiratory failure with hypercapnia; J96.02 - Acute respiratory failure with hypercapnia; J96.02 - Acute respiratory failure with hypercapnia Is this a current diagnosis for this admission?: Yes Plan: Baseline chronic respiratory failure with hypercapnia and on home oxygen (2) Anemia Qualifiers: Anemia type: unspecified type Qualified Code(s): D64.9 - Anemia, unspecified Is this a current diagnosis for this admission?: Yes (3) CHF (congestive heart failure) Qualifiers: Heart failure type: diastolic Heart failure chronicity: acute on chronic Qualified Code(s): I50.33 - Acute on chronic diastolic (congestive) heart failure Is this a current diagnosis for this admission?: Yes (4) Pleural effusion Is this a current diagnosis for this admission?: Yes Plan: Recurrent (5) Acute on chronic diastolic (congestive) heart failure Is this a current diagnosis for this admission?: Yes Plan: Ejection fraction of 65% (6) Full code status Is this a current diagnosis for this admission?: Yes (7) History of atrial fibrillation Is this a current diagnosis for this admission?: Yes Plan: Currently in sinus rhythm (8) AICD present, double chamber Is this a current diagnosis for this admission?: Yes (9) Acute on chronic respiratory failure Qualifiers: Respiratory failure complication: hypoxia and hypercapnia Qualified Code(s) : J96.21 - Acute and chronic respiratory failure with hypoxia; J96.22 - Acute and chronic respiratory failure with hypercapnia; J96.22 - Acute and chronic respiratory failure with hypercapnia; J96.22 - Acute and chronic respiratory failure with hypercapnia Is this a current diagnosis for this admission?: Yes - Time Time Spent with patient: 15-24 minutes Medications reviewed and adjusted accordingly: Yes Anticipated discharge: Home Within: within 72 hours - Inpatient Certification Based on my medical assessment, after consideration of the patient's comorbidities, presenting symptoms, or acuity I expect that the services needed warrant INPATIENT care.: Yes Medical Necessity: Need For Continuous Telemetry Monitoring, Risk of Diagnosis Which Will Require Inpatient Eval/Care/Monitoring - Plan Summary Plan Summary: Thoracentesis is planned for Tuesday. Aspirin and Eliquis to be on hold and I will put on Lovenox in the interim. This should be on hold on Tuesday night
[2018-02-04] MEDS ORDERED: LIDOCAINE 5% (700 MG) TRANSDERMAL ADH..PATCH TP ONE (18:30)
[2018-02-04] MEDS ORDERED: LIDOCAINE 5% (700 MG) TRANSDERMAL ADH..PATCH ONE (20:50)
[2018-02-04] MEDS: ATORVASTATIN CALCIUM 40 MG TABLET PO SCH (22:01)
[2018-02-04] MEDS: ENOXAPARIN SODIUM INJ 150 MG/1 ML DISP.SYRIN SUBCUT SCH (22:03)
[2018-02-05] MEDS ORDERED: LIDOCAINE 5% (700 MG) TRANSDERMAL ADH..PATCH ONE (00:04)
[2018-02-05] MEDS ORDERED: LIDOCAINE 5% (700 MG) TRANSDERMAL ADH..PATCH TP ONE (00:15)
[2018-02-05] MEDS: IPRATROPIUM/ALBUTEROL 0.5-2.5 MG/3 ML AMPUL NEB SCH ×4 (01:05→21:06)
[2018-02-05] MEDS: OXYCODONE-ACETAMINOPHEN 5-325 MG TABLET PO PRN ×4 (03:41→23:24)
[2018-02-05] MEDS: OXYCODONE HCL IR 5 MG TABLET PO PRN ×4 (03:42→23:25)
[2018-02-05] MEDS: FUROSEMIDE INJ/PF 40 MG/4 ML SDV IV SCH ×3 (05:53→22:33)
[2018-02-05 07:40] LABS: ANION GAP 11 (5-19); BLOOD UREA NITROGEN 50 mg/dL (7-20); CALCIUM 8.8 mg/dL (8.4-10.2); CARBON DIOXIDE 34 mmol/L (22-30); CHLORIDE 99 mmol/L (98-107); GLUCOSE 99 mg/dL (75-110); POTASSIUM 4.3 mmol/L (3.6-5.0)
[2018-02-05] MEDS: DOCUSATE SODIUM 100 MG CAPSULE PO SCH (10:05)
[2018-02-05] MEDS: SERTRALINE HCL 50 MG TABLET PO SCH (10:05)
[2018-02-05] MEDS: ENOXAPARIN SODIUM INJ 150 MG/1 ML DISP.SYRIN SUBCUT SCH (10:05)
[2018-02-05] MEDS: AMIODARONE HCL 200 MG TABLET PO SCH (10:05)
[2018-02-05] MEDS: FAMOTIDINE 20 MG TABLET PO SCH ×2 (10:05→22:32)
--- NOTE | 2018-02-05 14:31 | PDOC PROGRESS REPORT ---
Subjective Progress Note for:: 02/05/18 Subjective:: Patient reports feeling better today. His breathing is improved and is currently off his BiPAP. There are no new complaints of findings son is by the bedside Reason For Visit: ACUTE RESPIRATORY FAILURE CHF Physical Exam Vital Signs: Temp Pulse Resp BP Pulse Ox 97.2 F 59 L 16 129/55 H 100 02/05/18 12:19 02/05/18 12:19 02/05/18 12:19 02/05/18 12:19 02/05/18 12:19 Intake & Output 02/04/18 02/05/18 02/06/18 06:59 06:59 06:59 Intake Total 458 2011 Output Total 6959 2637 Balance -1454 -839 Weight 130.5 kg 127.5 kg General appearance: PRESENT: no acute distress, disheveled, morbidly obese, well -developed Head exam: PRESENT: atraumatic Eye exam: PRESENT: conjunctiva pink, EOMI, PERRLA. ABSENT: scleral icterus Neck exam: PRESENT: full ROM. ABSENT: JVD Respiratory exam: PRESENT: crackles, decreased breath sounds, rhonchi. ABSENT: tachypnea, unlabored, wheezes Cardiovascular exam: PRESENT: RRR, +S1, +S2. ABSENT: diastolic murmur, rubs, systolic murmur GI/Abdominal exam: PRESENT: normal bowel sounds, soft. ABSENT: distended, guarding, mass, organolmegaly, rebound, tenderness Rectal exam: PRESENT: deferred Extremities exam: PRESENT: other - 3+ Neurological exam: PRESENT: alert, awake. ABSENT: motor sensory deficit Psychiatric exam: PRESENT: normal mood Results Laboratory Results: 02/04/18 05:23 02/05/18 06:13 02/05/18 06:13 Sodium 144.0 Potassium 4.3 Chloride 99 Carbon Dioxide 34 H Anion Gap 11 BUN 50 H Creatinine 1.65 H Est GFR ( Amer) 50 L Est GFR (Non-Af Amer) 41 L Glucose 99 Calcium 8.8 02/04/18 05:23 Troponin I 0.016 Impressions: Chest X-Ray 02/03/18 08:47 IMPRESSION: CARDIOMEGALY WITH VASCULAR CONGESTION. MODERATELY LARGE LEFT PLEURAL EFFUSION. NO CHANGE FROM PRIOR STUDIES. Assessment & Plan - Diagnosis (1) Acute respiratory failure Qualifiers: Respiratory failure complication: hypoxia and hypercapnia Qualified Code(s) : J96.01 - Acute respiratory failure with hypoxia; J96.02 - Acute respiratory failure with hypercapnia; J96.02 - Acute respiratory failure with hypercapnia; J96.02 - Acute respiratory failure with hypercapnia Is this a current diagnosis for this admission?: Yes (2) Anemia Qualifiers: Anemia type: unspecified type Qualified Code(s): D64.9 - Anemia, unspecified Is this a current diagnosis for this admission?: Yes (3) CHF (congestive heart failure) Qualifiers: Heart failure type: diastolic Heart failure chronicity: acute on chronic Qualified Code(s): I50.33 - Acute on chronic diastolic (congestive) heart failure Is this a current diagnosis for this admission?: Yes (4) Pleural effusion Is this a current diagnosis for this admission?: Yes (5) Acute on chronic diastolic (congestive) heart failure Is this a current diagnosis for this admission?: Yes (6) Full code status Is this a current diagnosis for this admission?: Yes (7) History of atrial fibrillation Is this a current diagnosis for this admission?: Yes (8) AICD present, double chamber Is this a current diagnosis for this admission?: Yes (9) Acute on chronic respiratory failure Qualifiers: Respiratory failure complication: hypoxia and hypercapnia Qualified Code(s) : J96.21 - Acute and chronic respiratory failure with hypoxia; J96.22 - Acute and chronic respiratory failure with hypercapnia; J96.22 - Acute and chronic respiratory failure with hypercapnia; J96.22 - Acute and chronic respiratory failure with hypercapnia Is this a current diagnosis for this admission?: Yes - Time Time Spent with patient: 15-24 minutes Medications reviewed and adjusted accordingly: Yes Anticipated discharge: Home Within: within 72 hours - Inpatient Certification Based on my medical assessment, after consideration of the patient's comorbidities, presenting symptoms, or acuity I expect that the services needed warrant INPATIENT care.: Yes Medical Necessity: Significant Comorbidiites Make Outpatient Treatment Too Risky , Need for IV Antibiotics - Plan Summary Plan Summary: Plan is for thoracentesis in a.m. Eliquis and aspirin on hold and we will also discontinue Lovenox.
[2018-02-05 17:45] LABS: ARTERIAL BLOOD BASE EXCESS 14.7 mmol/L; ARTERIAL BLOOD H2CO3 2.25 mmol/L (1.05-1.35); ARTERIAL BLOOD HCO3 42.3 mmol/L (20-26); ARTERIAL BLOOD PH 7.37 (7.35-7.45); ARTERIAL BLOOD PO2 49.6 mmHg (80-100); ARTERIAL BLOOD TOTAL CO2 44.6 mmol/L (23-27)
[2018-02-05 17:50] LABS: ARTERIAL BLOOD FIO2 3.5
[2018-02-05 17:52] LABS: ARTERIAL BLOOD PCO2 74.7 mmHg (35-45)
[2018-02-05] MEDS: ATORVASTATIN CALCIUM 40 MG TABLET PO SCH (22:32)
[2018-02-06] MEDS: IPRATROPIUM/ALBUTEROL 0.5-2.5 MG/3 ML AMPUL NEB SCH ×4 (02:45→19:51)
[2018-02-06] MEDS: FUROSEMIDE INJ/PF 40 MG/4 ML SDV IV SCH ×3 (05:58→21:13)
[2018-02-06] MEDS: OXYCODONE HCL IR 5 MG TABLET PO PRN ×3 (05:59→21:13)
[2018-02-06] MEDS: OXYCODONE-ACETAMINOPHEN 5-325 MG TABLET PO PRN ×3 (05:59→19:42)
[2018-02-06 06:11] LABS: HEMATOCRIT 26.7 % (37.9-51.0); HEMOGLOBIN 8.6 g/dL (13.5-17.0); MEAN CORPUSCULAR HEMOGLOBIN 28.7 pg (27.0-33.4); MEAN CORPUSCULAR HGB CONC 32.1 g/dL (32.0-36.0); MEAN CORPUSCULAR VOLUME 90 fl (80-97); PLATELET COUNT 184 10^3/uL (150-450); RED BLOOD COUNT 2.98 10^6/uL (4.35-5.55); RED CELL DISTRIBUTION WIDTH 17.4 % (11.5-14.0); WHITE BLOOD COUNT 4.5 10^3/uL (4.0-10.5)
[2018-02-06 06:22] LABS: ANION GAP 13 (5-19); BLOOD UREA NITROGEN 45 mg/dL (7-20); CALCIUM 8.8 mg/dL (8.4-10.2); CARBON DIOXIDE 37 mmol/L (22-30); CHLORIDE 95 mmol/L (98-107); GLUCOSE 100 mg/dL (75-110); POTASSIUM 4.4 mmol/L (3.6-5.0); SODIUM 144.5 mmol/L (137-145)
[2018-02-06] MEDS: AMIODARONE HCL 200 MG TABLET PO SCH (09:01)
[2018-02-06] MEDS: DOCUSATE SODIUM 100 MG CAPSULE PO SCH (09:01)
[2018-02-06] MEDS: FAMOTIDINE 20 MG TABLET PO SCH ×2 (09:01→21:13)
[2018-02-06] MEDS: SERTRALINE HCL 50 MG TABLET PO SCH (09:01)
--- NOTE | 2018-02-06 14:54 | RADIOLOGY REPORT (SQ) ---
EXAM DESCRIPTION: CHEST SINGLE VIEW COMPLETED DATE/TIME: 02/06/2018 2:27 pm REASON FOR STUDY: S/P LT THORACENTESIS COMPARISON: 02/03/2018 EXAM PARAMETERS: NUMBER OF VIEWS: One view. TECHNIQUE: Single frontal radiographic view of the chest acquired. RADIATION DOSE: NA LIMITATIONS: None. FINDINGS: LUNGS AND PLEURA: The patient is status post left thoracentesis. Persistent left pleural effusion with some decrease. No pneumothorax. Mild stable interstitial changes at the right lung base. MEDIASTINUM AND HILAR STRUCTURES: No masses. Contour normal. HEART AND VASCULAR STRUCTURES: Cardiac enlargement. Stable pulmonary vascular congestion. BONES: No acute findings. HARDWARE: Cardiac pacemaker/ defibrillatorand prior anterior median sternotomy. Left atrial clip, s table finding. OTHER: No other significant finding. IMPRESSION: 1 Status post left thoracentesis since the prior study dated 02/03/2018. Persistent left pleural effusion smaller in size. No evidence of pneumothorax. 2. Additional stable findings as noted above. TECHNICAL DOCUMENTATION: JOB ID: [id number] [employer]- All Rights Reserved Reading location - IP/workstation name: [email or web address]
--- NOTE | 2018-02-06 15:11 | PDOC PROGRESS REPORT ---
Subjective Progress Note for:: 02/06/18 Subjective:: Patient reports feeling better today. His breathing is improved and is currently off his BiPAP. Patient is status post left thoracentesis. Chest x-ray shows persistent left pleural effusion with some decrease. Reason For Visit: ACUTE RESPIRATORY FAILURE CHF Physical Exam Vital Signs: Temp Pulse Resp BP Pulse Ox 97.5 F 60 20 107/53 L 100 02/06/18 12:06 02/06/18 14:00 02/06/18 12:06 02/06/18 12:06 02/06/18 12:06 Intake & Output 02/05/18 02/06/18 02/07/18 06:59 06:59 06:59 Intake Total 2011 Output Total 2650 1250 Balance -638 -1028 Weight 127.5 kg 128.2 kg General appearance: PRESENT: no acute distress, disheveled, morbidly obese, well -developed, well-nourished Head exam: PRESENT: atraumatic Respiratory exam: PRESENT: crackles, rales, unlabored. ABSENT: rhonchi, wheezes Cardiovascular exam: PRESENT: RRR. ABSENT: diastolic murmur, rubs, systolic murmur GI/Abdominal exam: PRESENT: normal bowel sounds, soft. ABSENT: distended, guarding, mass, organolmegaly, rebound, tenderness Rectal exam: PRESENT: deferred Extremities exam: PRESENT: +1 edema Neurological exam: PRESENT: alert, awake, oriented to person, oriented to place , oriented to time, oriented to situation, CN II-XII grossly intact. ABSENT: motor sensory deficit Results Laboratory Results: 02/06/18 05:34 02/06/18 05:34 02/05/18 02/06/18 02/06/18 17:30 05:34 05:34 WBC 4.5 RBC 2.98 L Hgb 8.6 L Hct 26.7 L MCV 90 MCH 28.7 MCHC 32.1 RDW 17.4 H Plt Count 184 Carbonic Acid 2.25 H HCO3/H2CO3 Ratio 18:1 ABG pH 7.37 ABG pCO2 74.7 H* ABG pO2 49.6 L ABG HCO3 42.3 H ABG O2 Saturation 82.0 L ABG Base Excess 14.7 FiO2 3.5 Sodium 144.5 Potassium 4.4 Chloride 95 L Carbon Dioxide 37 H Anion Gap 13 BUN 45 H Creatinine 1.86 H Est GFR ( Amer) 43 L Est GFR (Non-Af Amer) 36 L Glucose 100 Calcium 8.8 02/04/18 05:23 Troponin I 0.016 Impressions: Chest X-Ray 02/06/18 00:00 IMPRESSION: 1 Status post left thoracentesis since the prior study dated 2017. Persistent left pleural effusion smaller in size. No evidence of pneumothorax. 2. Additional stable findings as noted above. Assessment & Plan - Diagnosis (1) Acute respiratory failure Qualifiers: Respiratory failure complication: hypoxia and hypercapnia Qualified Code(s) : J96.01 - Acute respiratory failure with hypoxia; J96.02 - Acute respiratory failure with hypercapnia; J96.02 - Acute respiratory failure with hypercapnia; J96.02 - Acute respiratory failure with hypercapnia Is this a current diagnosis for this admission?: Yes (2) Anemia Qualifiers: Anemia type: unspecified type Qualified Code(s): D64.9 - Anemia, unspecified Is this a current diagnosis for this admission?: Yes (3) CHF (congestive heart failure) Qualifiers: Heart failure type: diastolic Heart failure chronicity: acute on chronic Qualified Code(s): I50.33 - Acute on chronic diastolic (congestive) heart failure Is this a current diagnosis for this admission?: Yes (4) Pleural effusion Is this a current diagnosis for this admission?: Yes (5) Acute on chronic diastolic (congestive) heart failure Is this a current diagnosis for this admission?: Yes (6) Full code status Is this a current diagnosis for this admission?: Yes (7) History of atrial fibrillation Is this a current diagnosis for this admission?: Yes (8) AICD present, double chamber Is this a current diagnosis for this admission?: Yes (9) Acute on chronic respiratory failure Qualifiers: Respiratory failure complication: hypoxia and hypercapnia Qualified Code(s) : J96.21 - Acute and chronic respiratory failure with hypoxia; J96.22 - Acute and chronic respiratory failure with hypercapnia; J96.22 - Acute and chronic respiratory failure with hypercapnia; J96.22 - Acute and chronic respiratory failure with hypercapnia Is this a current diagnosis for this admission?: Yes - Time Time Spent with patient: 15-24 minutes Medications reviewed and adjusted accordingly: Yes Anticipated discharge: Home Within: within 48 hours - Inpatient Certification Based on my medical assessment, after consideration of the patient's comorbidities, presenting symptoms, or acuity I expect that the services needed warrant INPATIENT care.: Yes Medical Necessity: Need For Continuous Telemetry Monitoring, Risk of Complication if Not Cared For in Hospital - Plan Summary Plan Summary: Pleural effusion possibly transudative secondary to diastolic CHF. Follow-up on culture from today. 2. Acute on chronic respiratory failure. Patient is very noncompliant about his BiPAP use despite numerous attempts to get him to use this. We have consulted Dr. Gonzales today to see if he can help manage this patient 3. Diastolic heart failure we will continue with Lasix 4. History of atrial fibrillation and venous thromboembolism. Patient had been on Eliquis as well as aspirin although we had this on hold for thoracentesis. Received Lovenox bridge through yesterday and I will restart his Eliquis today. 5. patient has a normal left ventricular Size and LVEF of 65%. He likely has a pacemaker and not an AICD
--- NOTE | 2018-02-06 15:19 | RADIOLOGY REPORT (SQ) ---
EXAM DESCRIPTION: U/S THORACENTESIS WITH IMAGING COMPLETED DATE/TIME: 02/06/2018 3:11 pm REASON FOR STUDY: Pleural effusion, Respiratory Failure COMPARISON: None. LIMITATIONS: None. PROCEDURE: Procedure, risks, benefit, and alternative explained to patient who then gave written con sent. The posterior left chest wall was marked using ultrasound guidance. A time-out was called for correct marking verification. Chest prepped and draped using sterile technique. Local anesthesia ac hieved using 3 ml of 1% lidocaine injection. A 6fr Safe-T- Centesis set was introduced into the left pleural space. Fluid was aspirated. The catheter was removed and the entry site was covered with s terile bandage. No immediate complications noted. Images acquired during the procedure were stored on PACS. FINDINGS: ENTRY SITE: posterior left chest. FLUID VOLUME: 1,050 FLUID ANALYSIS: Straw-colored OTHER: Fluid sent to the lab for testing. IMPRESSION: SUCCESSFUL THORACENTESIS USING ULTRASOUND GUIDANCE. COMMENT: Patient medication list reviewed: Yes- Quality ID# [id number]:Eligible professional attests to doc umenting in the medical record they obtained, updated, or reviewed the patient's current medications. TECHNICAL DOCUMENTATION: JOB ID: [id number] [employer]- All Rights Reserved Reading location - IP/workstation name: [email or web address]
[2018-02-06 15:21] LABS: FLUID TYPE PLEURAL
[2018-02-06 15:22] LABS: FLUID APPEARANCE SLIGHTLY HAZY; FLUID COLOR YELLOW; FLUID VISCOSITY SLIGHTLY VISCOUS
--- NOTE | 2018-02-06 17:38 | RADIOLOGY REPORT (SQ) ---
EXAM DESCRIPTION: CHEST SINGLE VIEW COMPLETED DATE/TIME: 02/06/2018 5:18 pm REASON FOR STUDY: S/P LT THORACENTESIS 2 HOUR FILM COMPARISON: 02/06/2018 EXAM PARAMETERS: NUMBER OF VIEWS: One view. TECHNIQUE: Single frontal radiographic view of the chest acquired. RADIATION DOSE: NA LIMITATIONS: None. FINDINGS: LUNGS AND PLEURA: Residual left pleural effusion. No pneumothorax. Retrocardiac opacific ation. MEDIASTINUM AND HILAR STRUCTURES: No masses. Contour normal. HEART AND VASCULAR STRUCTURES: Cardiomegaly. No pulmonary edema. BONES: No acute findings. HARDWARE: Sternotomy wires. Heart valve. Pacemaker/defibrillator. OTHER: No other significant finding. IMPRESSION: Residual left pleural effusion with no pneumothorax. Cardiomegaly without ayan pulmona ry edema. TECHNICAL DOCUMENTATION: JOB ID: [id number] [employer]- All Rights Reserved Reading location - IP/workstation name: [email or web address]
[2018-02-06] MEDS: ATORVASTATIN CALCIUM 40 MG TABLET PO SCH (21:13)
[2018-02-06] MEDS: APIXABAN 5 MG TABLET PO SCH (22:20)
[2018-02-07] MEDS: IPRATROPIUM/ALBUTEROL 0.5-2.5 MG/3 ML AMPUL NEB SCH ×4 (01:58→20:13)
[2018-02-07 05:45] LABS: ABSOLUTE EOSINOPHILS # (AUTO) 0.2 10^3/uL (0.0-0.6); ABSOLUTE LYMPHOCYTES (AUTO) 1.1 10^3/uL (0.5-4.7); ABSOLUTE MONOCYTES (AUTO) 0.5 10^3/uL (0.1-1.4); ABSOLUTE NEUT (AUTO) 2.2 10^3/uL (1.7-8.2); BASOPHILS % (AUTO) 0.6 % (0-2); EOSINOPHILS % (AUTO) 5.9 % (0-6); HEMATOCRIT 23.8 % (37.9-51.0); LYMPHOCYTES % (AUTO) 27.6 % (13-45); MEAN CORPUSCULAR HEMOGLOBIN 29.3 pg (27.0-33.4); MEAN CORPUSCULAR HGB CONC 33.6 g/dL (32.0-36.0); MEAN CORPUSCULAR VOLUME 87 fl (80-97); MONOCYTES % (AUTO) 11.2 % (3-13); PLATELET COUNT 163 10^3/uL (150-450); RED BLOOD COUNT 2.73 10^6/uL (4.35-5.55); RED CELL DISTRIBUTION WIDTH 16.6 % (11.5-14.0); SEGMENTED NEUTROPHILS % (AUTO) 54.7 % (42-78); TOTAL CELLS COUNTED % (AUTO) 100 %; WHITE BLOOD COUNT 4.1 10^3/uL (4.0-10.5)
[2018-02-07 06:26] LABS: ARTERIAL BLOOD BASE EXCESS 12.6 mmol/L; ARTERIAL BLOOD H2CO3 1.99 mmol/L (1.05-1.35); ARTERIAL BLOOD HCO3 39.4 mmol/L (20-26); ARTERIAL BLOOD O2 SATURATION 96.8 % (94-98); ARTERIAL BLOOD PCO2 66.2 mmHg (35-45); ARTERIAL BLOOD PH 7.39 (7.35-7.45); ARTERIAL BLOOD PO2 93.3 mmHg (80-100); ARTERIAL BLOOD TOTAL CO2 41.5 mmol/L (23-27)
[2018-02-07 06:27] LABS: ARTERIAL BLOOD FIO2 35%
[2018-02-07] MEDS: OXYCODONE-ACETAMINOPHEN 5-325 MG TABLET PO PRN ×3 (08:23→20:59)
[2018-02-07] MEDS: OXYCODONE HCL IR 5 MG TABLET PO PRN ×3 (08:23→21:00)
[2018-02-07] MEDS: DOCUSATE SODIUM 100 MG CAPSULE PO SCH (10:49)
[2018-02-07] MEDS: AMIODARONE HCL 200 MG TABLET PO SCH (10:49)
[2018-02-07] MEDS: SERTRALINE HCL 50 MG TABLET PO SCH (10:49)
[2018-02-07] MEDS: APIXABAN 5 MG TABLET PO SCH ×2 (10:49→21:00)
[2018-02-07] MEDS: FUROSEMIDE INJ/PF 40 MG/4 ML SDV IV SCH (10:49)
[2018-02-07] MEDS: FAMOTIDINE 20 MG TABLET PO SCH ×2 (10:49→20:59)
[2018-02-07] MEDS ORDERED: SODIUM CHLORIDE NASAL SPRAY 44 ML NASL PRN (13:47)
--- NOTE | 2018-02-07 18:50 | PDOC PROGRESS REPORT ---
Subjective Progress Note for:: 02/07/18 Subjective:: Mr. Ness was admitted for CHF exacerbation. He was noted to have right- sided pleural effusion and had thoracentesis for this. No acute event overnight. He appears comfortable today on bed. Denies any shortness of breath or chest pain. He has been diuresing well. Lasix was recently decreased due to his low normal blood pressures. Reason For Visit: ACUTE RESPIRATORY FAILURE CHF Physical Exam Vital Signs: Temp Pulse Resp BP Pulse Ox 97.7 F 61 20 99/44 L 91 L 02/07/18 11:27 02/07/18 16:03 02/07/18 16:03 02/07/18 16:03 02/07/18 16:03 Intake & Output 02/06/18 02/07/18 02/08/18 06:59 06:59 06:59 Intake Total 222 444 Output Total 1250 1600 Balance -1028 -1156 Weight 282 lb 10.122 oz 283 lb 15.286 oz General appearance: PRESENT: no acute distress, well-developed, well-nourished Head exam: PRESENT: atraumatic, normocephalic Eye exam: PRESENT: conjunctiva pink, EOMI, PERRLA. ABSENT: scleral icterus Mouth exam: PRESENT: moist, tongue midline Neck exam: ABSENT: carotid bruit, JVD, lymphadenopathy, thyromegaly Respiratory exam: PRESENT: clear to auscultation shivani. ABSENT: rales, rhonchi, wheezes Cardiovascular exam: PRESENT: irregular rhythm Vascular exam: PRESENT: normal capillary refill GI/Abdominal exam: PRESENT: normal bowel sounds, soft. ABSENT: distended, guarding, mass, organolmegaly, rebound, tenderness Extremities exam: PRESENT: other - trace pedal edema Neurological exam: PRESENT: alert, awake, oriented to person, oriented to place , oriented to time, oriented to situation, CN II-XII grossly intact. ABSENT: motor sensory deficit Psychiatric exam: PRESENT: appropriate affect, normal mood. ABSENT: homicidal ideation, suicidal ideation Results Laboratory Results: 02/07/18 05:05 02/06/18 05:34 02/07/18 02/07/18 05:05 05:54 WBC 4.1 RBC 2.73 L Hgb 8.0 L Hct 23.8 L MCV 87 MCH 29.3 MCHC 33.6 RDW 16.6 H Plt Count 163 Seg Neutrophils % 54.7 Lymphocytes % 27.6 Monocytes % 11.2 Eosinophils % 5.9 Basophils % 0.6 Absolute Neutrophils 2.2 Absolute Lymphocytes 1.1 Absolute Monocytes 0.5 Absolute Eosinophils 0.2 Absolute Basophils 0.0 Carbonic Acid 1.99 H HCO3/H2CO3 Ratio 19:1 ABG pH 7.39 ABG pCO2 66.2 H ABG pO2 93.3 ABG HCO3 39.4 H ABG O2 Saturation 96.8 ABG Base Excess 12.6 FiO2 35% 02/04/18 05:23 Troponin I 0.016 Impressions: Thoracentesis Ultrasound 02/06/18 00:00 IMPRESSION: SUCCESSFUL THORACENTESIS USING ULTRASOUND GUIDANCE. Chest X-Ray 02/06/18 16:10 IMPRESSION: Residual left pleural effusion with no pneumothorax. Cardiomegaly without ayan pulmonary edema. Assessment & Plan - Diagnosis (1) CHF (congestive heart failure) Qualifiers: Heart failure type: diastolic Heart failure chronicity: acute on chronic Qualified Code(s): I50.33 - Acute on chronic diastolic (congestive) heart failure Is this a current diagnosis for this admission?: Yes Plan: Resume Lasix at a lower dose of 40 mg daily for now due to low normal blood pressures. Recent EF is 65%. Continue I&Os. (2) Atrial fibrillation Qualifiers: Atrial fibrillation type: paroxysmal Qualified Code(s): I48.0 - Paroxysmal atrial fibrillation Is this a current diagnosis for this admission?: Yes Plan: Rate controlled. Continue Eliquis. (3) Pleural effusion Is this a current diagnosis for this admission?: Yes Plan: Status post thoracentesis for right-sided pleural effusion. Effusion is transudative and is likely related to patient's CHF. Will repeat chest x-ray tomorrow. - Time Time Spent with patient: 15-24 minutes
[2018-02-07] MEDS: ATORVASTATIN CALCIUM 40 MG TABLET PO SCH (21:00)
[2018-02-08] MEDS: IPRATROPIUM/ALBUTEROL 0.5-2.5 MG/3 ML AMPUL NEB SCH ×4 (02:33→20:15)
[2018-02-08] MEDS: OXYCODONE HCL IR 5 MG TABLET PO PRN ×4 (03:16→23:23)
[2018-02-08] MEDS: OXYCODONE-ACETAMINOPHEN 5-325 MG TABLET PO PRN ×4 (03:16→23:23)
[2018-02-08 06:10] LABS: HEMOGLOBIN 8.7 g/dL (13.5-17.0); MEAN CORPUSCULAR HEMOGLOBIN 29.3 pg (27.0-33.4); MEAN CORPUSCULAR HGB CONC 33.3 g/dL (32.0-36.0); MEAN CORPUSCULAR VOLUME 88 fl (80-97); PLATELET COUNT 168 10^3/uL (150-450); RED BLOOD COUNT 2.97 10^6/uL (4.35-5.55); RED CELL DISTRIBUTION WIDTH 17.1 % (11.5-14.0); WHITE BLOOD COUNT 4.7 10^3/uL (4.0-10.5)
--- NOTE | 2018-02-08 09:16 | RADIOLOGY REPORT (SQ) ---
EXAM DESCRIPTION: CHEST SINGLE VIEW COMPLETED DATE/TIME: 02/08/2018 9:02 am REASON FOR STUDY: Follow-up from Thoracentesis COMPARISON: 02/06/2018, 02/03/2018, 01/29/[address] chest 01/11/2018 Ultrasound-guided thoracentesis 02/06/2018 EXAM PARAMETERS: NUMBER OF VIEWS: One view. TECHNIQUE: Single frontal radiographic view of the chest acquired. RADIATION DOSE: NA LIMITATIONS: None. FINDINGS: LUNGS AND PLEURA: Minimal blunting in the right and left lateral costophrenic sulci from t race pleural fluid or pleural thickening, unchanged from 02/06/2018. Frank lines are present in the periphery of the right lung base indicating interstitial edema. There is bandlike left and right retrocardiac consolidation likely atelectasis. No pneumothorax. MEDIASTINUM AND HILAR STRUCTURES: No masses. Contour normal. HEART AND VASCULAR STRUCTURES: Moderate cardiomegaly. 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 Left atrial clip BONES: No acute findings. HARDWARE: Right-sided pacemaker/defibrillator OTHER: No other significant finding. IMPRESSION: Persistent Frank lines from interstitial edema. Minimal residual pleural fluid/ pleural thickening bilaterally. No pneumothorax post left thoracente sis TECHNICAL DOCUMENTATION: JOB ID: [id number] [employer]- All Rights Reserved Reading location - IP/workstation name: [email or web address]
[2018-02-08] MEDS: AMIODARONE HCL 200 MG TABLET PO SCH (10:54)
[2018-02-08] MEDS: APIXABAN 5 MG TABLET PO SCH ×2 (10:54→22:40)
[2018-02-08] MEDS: FAMOTIDINE 20 MG TABLET PO SCH ×2 (10:54→22:40)
[2018-02-08] MEDS: SERTRALINE HCL 50 MG TABLET PO SCH (10:54)
[2018-02-08] MEDS: DOCUSATE SODIUM 100 MG CAPSULE PO SCH (10:54)
[2018-02-08] MEDS: FUROSEMIDE INJ/PF 40 MG/4 ML SDV IV SCH (10:54)
[2018-02-08] MEDS: ASPIRIN 81 MG TABLET, ENT COATED PO SCH (10:56)
--- NOTE | 2018-02-08 15:29 | PDOC PROGRESS REPORT ---
Subjective Progress Note for:: 02/08/18 Subjective:: Mr. Ness was admitted for CHF exacerbation. He was noted to have right- sided pleural effusion and had thoracentesis for this. No acute event overnight. He is comfortably eating breakfast. Denies any shortness of breath or chest pain. He has been diuresing well. Reason For Visit: ACUTE RESPIRATORY FAILURE CHF Physical Exam Vital Signs: Temp Pulse Resp BP Pulse Ox 97.6 F 60 18 111/51 L 96 02/08/18 12:25 02/08/18 14:28 02/08/18 14:28 02/08/18 12:25 02/08/18 14:28 Intake & Output 02/07/18 02/08/18 02/09/18 06:59 06:59 06:59 Intake Total 444 698 Output Total 1600 1150 Balance -1156 -452 Weight 283 lb 15.286 oz 283 lb 11.759 oz General appearance: PRESENT: no acute distress, well-developed, well-nourished Head exam: PRESENT: atraumatic, normocephalic Eye exam: PRESENT: conjunctiva pink, EOMI, PERRLA. ABSENT: scleral icterus Neck exam: ABSENT: carotid bruit, JVD, lymphadenopathy, thyromegaly Respiratory exam: PRESENT: clear to auscultation shivani, rales - Occasional rales in the bases. ABSENT: rhonchi, wheezes Cardiovascular exam: PRESENT: irregular rhythm. ABSENT: rubs GI/Abdominal exam: PRESENT: normal bowel sounds, soft. ABSENT: distended, guarding, mass, organolmegaly, rebound, tenderness Rectal exam: PRESENT: deferred Neurological exam: PRESENT: alert, awake, oriented to person, oriented to place , oriented to time, oriented to situation, CN II-XII grossly intact. ABSENT: motor sensory deficit Results Laboratory Results: 02/08/18 05:18 02/06/18 05:34 02/08/18 05:18 WBC 4.7 RBC 2.97 L Hgb 8.7 L Hct 26.0 L MCV 88 MCH 29.3 MCHC 33.3 RDW 17.1 H Plt Count 168 02/04/18 05:23 Troponin I 0.016 Impressions: Thoracentesis Ultrasound 02/06/18 00:00 IMPRESSION: SUCCESSFUL THORACENTESIS USING ULTRASOUND GUIDANCE. Chest X-Ray 02/08/18 07:00 IMPRESSION: Persistent Frank lines from interstitial edema. Minimal residual pleural fluid/ pleural thickening bilaterally. No pneumothorax post left thoracentesis Assessment & Plan - Diagnosis (1) CHF (congestive heart failure) Qualifiers: Heart failure type: diastolic Heart failure chronicity: acute on chronic Qualified Code(s): I50.33 - Acute on chronic diastolic (congestive) heart failure Is this a current diagnosis for this admission?: Yes Plan: Resolved. Recent EF is 65%. Continue I&Os. He will be restarted on Lasix 40 mg daily today. Possible discharge tomorrow. (2) Atrial fibrillation Qualifiers: Atrial fibrillation type: paroxysmal Qualified Code(s): I48.0 - Paroxysmal atrial fibrillation Is this a current diagnosis for this admission?: Yes Plan: Rate controlled. Continue Eliquis. (3) Pleural effusion Is this a current diagnosis for this admission?: Yes Plan: Status post thoracentesis for right-sided pleural effusion. Effusion is transudative and is likely related to patient's CHF. Repeat chest x-ray shows stable minimal right-sided pleural effusion.
[2018-02-08] MEDS: ATORVASTATIN CALCIUM 40 MG TABLET PO SCH (22:40)
[2018-02-09] MEDS: IPRATROPIUM/ALBUTEROL 0.5-2.5 MG/3 ML AMPUL NEB SCH ×3 (01:29→13:42)
[2018-02-09] MEDS: OXYCODONE-ACETAMINOPHEN 5-325 MG TABLET PO PRN ×2 (06:21→12:51)
[2018-02-09] MEDS: OXYCODONE HCL IR 5 MG TABLET PO PRN ×2 (06:21→12:51)
[2018-02-09] MEDS ORDERED: ONDANSETRON HCL INJ/PF 4 MG/2 ML SDV IV PRN (08:30)
[2018-02-09] MEDS: AMIODARONE HCL 200 MG TABLET PO SCH (09:50)
[2018-02-09] MEDS: FAMOTIDINE 20 MG TABLET PO SCH (09:50)
[2018-02-09] MEDS: ASPIRIN 81 MG TABLET, ENT COATED PO SCH (09:50)
[2018-02-09] MEDS: APIXABAN 5 MG TABLET PO SCH (09:50)
[2018-02-09] MEDS: DOCUSATE SODIUM 100 MG CAPSULE PO SCH (09:50)
[2018-02-09] MEDS: SERTRALINE HCL 50 MG TABLET PO SCH (09:51)
[2018-02-09] MEDS: FUROSEMIDE INJ/PF 40 MG/4 ML SDV IV SCH (09:51)
[2018-02-09 13:04] VITALS: BP 115/54
--- NOTE | 2018-02-10 16:23 | PDOC DISCHARGE SUMMARY ---
General - Admit/Disc Date/PCP Admission Date/Primary Care Provider: 02/03/18 12:45 MAURICE ORTIZ, DO Discharge Date: 02/09/18 - Discharge Diagnosis (1) CHF (congestive heart failure) Is this a current diagnosis for this admission?: Yes (2) Atrial fibrillation Is this a current diagnosis for this admission?: Yes (3) Pleural effusion Is this a current diagnosis for this admission?: Yes - Additional Information Resuscitation Status: Full Code Discharge Diet: Cardiac Discharge Activity: Activity As Tolerated, Balance Activity w/Rest, Weigh Daily Prescriptions: Acetaminophen [Tylenol 325 mg Tablet] 650 mg PO Q6HP PRN #30 tablet PRN Reason: Furosemide [Lasix 20 mg Tablet] 20 mg PO QAM #30 tablet Gabapentin [Neurontin 100 mg Capsule] 100 mg PO Q12 PRN #30 capsule PRN Reason: For Pain Oxycodone HCl/Acetaminophen [Oxycodone-Acetaminophen 10-325] 1 each PO Q6H PRN # 12 tablet PRN Reason: Home Medications: Amiodarone HCl [Cordarone 200 mg Tablet] 200 mg PO DAILY 02/03/18 Apixaban [Eliquis 5 mg Tablet] 5 mg PO Q12 02/03/18 Aspirin [Adult Low Dose Aspirin EC] 81 mg PO QAM 02/03/18 Atorvastatin Calcium [Lipitor 40 mg Tablet] 40 mg PO QHS 02/03/18 Methocarbamol [Robaxin 750 mg Tablet] 750 mg PO Q6HP PRN 02/03/18 Omeprazole 20 mg PO QAM 02/03/18 Oxycodone HCl/Acetaminophen [Percocet 10-325 mg Tablet] 1 tab PO Q6HP PRN Sertraline HCl [Zoloft 50 mg Tablet] 50 mg PO DAILY 02/03/18 Torsemide [Demadex 20 mg Tablet] 20 mg PO DAILY 02/03/18 Umeclidinium Brm/Vilanterol Tr [Anoro Ellipta 62.5-25 Mcg INH] 1 puff IH QAM 04/13 Acetaminophen [Tylenol 325 mg Tablet] 650 mg PO Q6HP PRN #30 tablet 02/09/18 Furosemide [Lasix 20 mg Tablet] 20 mg PO QAM #30 tablet 02/09/18 Gabapentin [Neurontin 100 mg Capsule] 100 mg PO Q12 PRN #30 capsule 02/09/18 Oxycodone HCl/Acetaminophen [Oxycodone-Acetaminophen 10325] 1 each PO Q6H PRN # 12 tablet 02/09/18 History of Present Illness History of Present Illness: This patient presents emergency room with complaints of difficulty breathing and shortness of breath. This is 1 of many admissions for this gentleman with recurrent episodes of CHF. He complains of bilateral leg swelling. Patient's son states that they do not have a scale and so he is unable to weigh himself. Fact they told me that the have had no CHF education and with no recurrence of most of the tenets of managing CHF. He was on BiPAP which he also uses at home. Patient just had an echocardiogram done in November 2017 which revealed left ventricular size to be normal with estimated LVEF of 65%. A CT scan that was done in December 2017 revealed moderate left subpulmonic effusion as well as consolidation and collapse of the left lower lobe. Chest x-ray done today reveals splenomegaly with vascular congestion as well as moderately large left pleural effusion. Thoracentesis was done on December 29 with 1 L of clear straw-colored fluid removed. Patient however has had subsequent x-ray after there is still showing large volume of pleural effusion and this may be responsible for his recurrent respiratory failure. Hospital Course Hospital Course: Mr. Ness was admitted for CHF exacerbation. On this admission he was noted to have right-sided pleural effusion. He did underwent another thoracentesis in this admission. Effusion was transudative and was more consistent with patient's CHF. Repeat chest x-rays post thoracentesis showed stable minimal right-sided pleural effusion. Patient was initially started on diuretics with 40 mg of IV Lasix. However this was adjusted as his blood pressures were running on the low normal side. Patient has been known to have poor compliance and has been readmitted multiple times for CHF exacerbation. Due to low normal blood pressures, patient was sent home on just 20 mg of IV Lasix with 20 mg of torsemide daily. 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 He was again counseled on strict adherence to salt and fluid restriction. Patient has paroxysmal atrial fibrillation. He was rate controlled and was continued on Eliquis throughout this hospital course. Physical Exam Vital Signs: Temp Pulse Resp BP Pulse Ox 97.8 F 60 18 115/54 L 96 08/16/18 13:49 02/09/18 14:00 02/09/18 13:49 02/09/18 13:49 02/09/18 13:49 Intake & Output 02/08/18 02/09/18 02/10/18 06:59 06:59 06:59 Intake Total 698 933 900 Output Total 1150 2100 1100 Balance -452 -1167 -200 Weight 283 lb 11.759 oz 283 lb 1.176 oz General appearance: PRESENT: no acute distress, well-developed, well-nourished Eye exam: PRESENT: conjunctiva pink, EOMI, PERRLA. ABSENT: scleral icterus Mouth exam: PRESENT: moist, tongue midline Neck exam: ABSENT: carotid bruit, JVD, lymphadenopathy, thyromegaly Respiratory exam: PRESENT: clear to auscultation shivani, rhonchi - Occasional rhonchi in the bases. ABSENT: rales, wheezes Cardiovascular exam: PRESENT: irregular rhythm GI/Abdominal exam: PRESENT: normal bowel sounds, soft. ABSENT: distended, guarding, mass, organolmegaly, rebound, tenderness Rectal exam: PRESENT: deferred Neurological exam: PRESENT: alert, awake, oriented to person, oriented to place , oriented to time, oriented to situation, CN II-XII grossly intact. ABSENT: motor sensory deficit Psychiatric exam: PRESENT: appropriate affect, normal mood. ABSENT: homicidal ideation, suicidal ideation Results Laboratory Results: 02/08/18 05:18 02/06/18 05:34 02/06/18 14:00 Pleural Fluid Gram Stain - Final 02/06/18 14:00 Pleural Fluid Body Fluid Culture - Final NO AEROBIC OR ANAEROBIC ORGANISMS RECOVERED 02/04/18 05:23 Troponin I 0.016 Impressions: Thoracentesis Ultrasound 02/06/18 00:00 IMPRESSION: SUCCESSFUL THORACENTESIS USING ULTRASOUND GUIDANCE. Chest X-Ray 02/08/18 07:00 IMPRESSION: Persistent Frank lines from interstitial edema. Minimal residual pleural fluid/ pleural thickening bilaterally. No pneumothorax post left thoracentesis Qualifiers - * PATIENT BEING DISCHARGED WITH ANY OF THE FOLLOWING DIAGNOSIS: No VTE patient discharged on overlapping Therapy?: Yes Reason(s) for not prescribing Overlap Therapy:: Tx not tolerated - diastolic CHF -low normal BP already
== END 2018-02-09 16:18 | disposition home health service (06) | DRG 291 ==
LOC: ER 08:27 → EH 12:45 → 3W 14:31
PROVIDERS: ADMIT Internal Medicine; ATTEND Internal Medicine
PROC: 5A09557 Assistance with Respiratory Ventilation, Greater than 96 Consecutive Hours, Continuous Positive Airway Pressure (ICD-10-PCS; 2018-02-03)
PROC: 0W993ZX Drainage of Right Pleural Cavity, Percutaneous Approach, Diagnostic (ICD-10-PCS; principal; 2018-02-06)
DX: I11.0 Hypertensive heart disease with heart failure (principal); J96.22 Acute and chronic respiratory failure with hypercapnia; J96.21 Acute and chronic respiratory failure with hypoxia; J91.8 Pleural effusion in other conditions classified elsewhere; I50.33 Acute on chronic diastolic (congestive) heart failure; I48.0 Paroxysmal atrial fibrillation; I25.10 Atherosclerotic heart disease of native coronary artery without angina pectoris; J44.9 Chronic obstructive pulmonary disease, unspecified; E78.5 Hyperlipidemia, unspecified; D64.9 Anemia, unspecified; M19.90 Unspecified osteoarthritis, unspecified site; Z79.01 Long term (current) use of anticoagulants; Z86.711 Personal history of pulmonary embolism; Z82.49 Family history of ischemic heart disease and other diseases of the circulatory system; Z87.891 Personal history of nicotine dependence; Z99.81 Dependence on supplemental oxygen; Z95.810 Presence of automatic (implantable) cardiac defibrillator; Z79.899 Other long term (current) drug therapy
CPT/HCPCS: 32555; 36415; 36600; 51702; 71045; 80048; 80053; 81001; 82550; 82553; 82803; 83735; 83880; 84157; 84484; 85025; 85027; 85610; 85730; 87070; 87075; 87205; 89050; 93005; 93010; 94640; 94660; 96374; 99291; J1940; J3490; J7620

== ENCOUNTER 2018-02-17 13:48 | Inpatient (IN) | payer MEDICARE, MEDICAID ==
[2018-02-17 14:21] LABS: ABSOLUTE EOSINOPHILS # (AUTO) 0.3 10^3/uL (0.0-0.6); ABSOLUTE LYMPHOCYTES (AUTO) 1.1 10^3/uL (0.5-4.7); ABSOLUTE MONOCYTES (AUTO) 0.6 10^3/uL (0.1-1.4); BASOPHILS % (AUTO) 0.8 % (0-2); EOSINOPHILS % (AUTO) 5.7 % (0-6); HEMATOCRIT 27.4 % (37.9-51.0); HEMOGLOBIN 8.9 g/dL (13.5-17.0); LYMPHOCYTES % (AUTO) 22.5 % (13-45); MEAN CORPUSCULAR HEMOGLOBIN 28.7 pg (27.0-33.4); MEAN CORPUSCULAR HGB CONC 32.5 g/dL (32.0-36.0); MEAN CORPUSCULAR VOLUME 88 fl (80-97); MONOCYTES % (AUTO) 11.4 % (3-13); PLATELET COUNT 220 10^3/uL (150-450); RED BLOOD COUNT 3.11 10^6/uL (4.35-5.55); RED CELL DISTRIBUTION WIDTH 16.8 % (11.5-14.0); SEGMENTED NEUTROPHILS % (AUTO) 59.6 % (42-78); TOTAL CELLS COUNTED % (AUTO) 100 %; WHITE BLOOD COUNT 5.1 10^3/uL (4.0-10.5)
--- NOTE | 2018-02-17 14:22 | ER Document Report ---
ED Cardiac - General Chief Complaint: Chest Pain Stated Complaint: CHEST PAIN Time Seen by Provider: 02/17/18 13:56 Mode of Arrival: Medic Information source: Patient, Emergency Med Personnel Notes: This is a 72-year-old man is brought in by EMS. EMS was called to the home because the patient was having lethargy and chest pain. When EMS arrived, the patient had a heart rate of 36. He was ultimately given 2 mg of atropine and total and transported to the emergency room. In the emergency room, he has a heart rate of 67, oxygen saturation of 89% on 2 He does have a significant medical history for coronary artery disease, status post CABG 3 (September 2017), status post pacemaker/defibrillator placement September 2017, multiple admissions for CHF with pleural effusion, oxygen dependent (2 L) . He also has a history of chronic pain. He is on chronic anticoagulation with Eliquis. Patient does report increased swelling of all the extremities and abdominal wall for the past few weeks. He also reports increased need for oxygen at home from 2-3 L. Current medicines: Torsemide 20 mg daily Lasix 20 mg daily Eliquis 5 mg daily Gabapentin 100 mg twice daily Aspirin 81 mg daily Amiodarone 200 mg daily Atorvastatin 40 mg daily Anoro inhaler TRAVEL OUTSIDE OF THE [place] IN LAST 30 DAYS: No - HPI Patient complains to provider of: Chest pain, Shortness of breath Use of: denies: Alcohol, Amphetamines, Bath salts, Caffeine, Cocaine, Decongestants, Other Was the onset of pain: Gradual Quality of pain: Dull, Heaviness Chest pain radiation location: None Severity now: Mild Severity at worst: Moderate Pain level currently: 1 Chest pain precipitating factors: At Rest Cardiac risk factors: Hypertension, Hx CHF, Hx [place] Positive cardiac history: Yes Associated symptoms: Shortness of breath, Weakness. denies: Abdominal pain Exacerbated by: Denies Relieved by: Nothing Similar symptoms previously: Yes Recently seen / treated by doctor: Yes - Related Data Allergies/Adverse Reactions: No Known Allergies Allergy (Verified 02/17/18 14:22) Past Medical History - General Information source: Patient, Emergency Med Personnel - Social History Smoking Status: Former Smoker Cigarette use (# per day): No Chew tobacco use (# tins/day): No Frequency of alcohol use: None Drug Abuse: None Lives with: Family Family History: Reviewed & Not Pertinent, CAD, COPD, Hypertension Patient has suicidal ideation: No Patient has homicidal ideation: No - Past Medical History Cardiac Medical History: Reports: Hx Atrial Fibrillation, Hx Congestive Heart Failure, Hx Coronary Artery Disease, Hx Heart Attack, Hx Hypercholesterolemia, Hx Hypertension, Hx Pulmonary Embolism Pulmonary Medical History: Reports: Hx COPD Neurological Medical History: Denies: Hx Seizures Endocrine Medical History: Denies: Hx Diabetes Mellitus Type 2 - History of same , but only on medication for short time. Renal/ Medical History: Denies: Hx End Stage Renal Disease, Hx Peritoneal Dialysis GI Medical History: Denies: Hx Crohn's Disease, Hx Ulcerative Colitis Musculoskeletal Medical History: Reports Hx Arthritis Skin Medical History: Denies Hx Psoriasis Psychiatric Medical History: Reports: Hx Depression Traumatic Medical History: Denies: Hx Traumatic Brain Injury Past Surgical History: Reports: Hx Cardiac Catheterization, Hx Cardiac Surgery - Pacemaker-removed due to infection, Hx Coronary Artery Bypass Graft, Hx Coronary Stent, Hx Internal Defibrillator, Hx Pacemaker - Battery change out and then explantation., Hx Tonsillectomy - Immunizations Hx Diphtheria, Pertussis, Tetanus Vaccination: No - >5 YRS Hx Pneumococcal Vaccination: 03/27/11 Review of Systems - Review of Systems Constitutional: denies: Chills, Fever EENT: denies: Nose pain, Nose congestion, Nose discharge Cardiovascular: Chest pain, Dyspnea, Lightheaded, Edema Respiratory: Short of breath. denies: Cough, Wheezing Gastrointestinal: denies: Abdomen distended, Abdominal pain, Diarrhea, Constipation Genitourinary: No symptoms reported Male Genitourinary: No symptoms reported Musculoskeletal: Joint pain Skin: No symptoms reported Hematologic/Lymphatic: No symptoms reported Neurological/Psychological: Weakness. denies: Depression Physical Exam - Vital signs Vitals: Resp Pulse Ox 17 96 02/17/18 13:36 02/17/18 13:36 Notes: Physical exam: GENERAL: 72-year-old chronically ill-appearing man, he is alert and oriented 3. He states he has some left-sided chest discomfort but he states he has chronic pain all over. He describes this pain is different from his previous cardiac related pain. He denies any exacerbating, relieving factors. He does report having increased body swelling over the last few weeks. HEAD: Atraumatic, normocephalic. EYES: Pupils equal round and reactive to light, extraocular movements intact, sclera anicteric, conjunctiva are normal. ENT: TMs normal, nares patent, oropharynx clear without exudates. Moist mucous membranes. NECK: Normal range of motion, supple without obvious mass or JVD. LUNGS: Breath sounds clear to auscultation bilaterally and equal. No wheezes rales or rhonchi. Chest: Sternotomy scar, healed. He does have healed pacemaker/defibrillator scars on both sides of the chest. HEART: Regular rate and rhythm without murmurs, rubs or gallops. ABDOMEN: Soft, normoactive bowel sounds. No tenderness to palpation. No guarding, no rebound. No masses appreciated. EXTREMITIES: 3+ edema of the lower extremities, he does have upper extremity edema. NEUROLOGICAL: Cranial nerves II through XII grossly intact. Normal speech, moving all extremities. PSYCH: Normal mood, normal affect. SKIN: Anasarca involving the lower extremities, the abdominal wall, upper extremities Course - Re-evaluation Re-evalutation: 02/17/18 14:31 Discussed case with EMS. They had given 0.5 of atropine because of a heart rate of 36 and the patient required up to 2 mg total. In the ER: Defibrillator/pacemaker interrogated: I spoke with Bart of [employer] who stated that there is no obvious problem. However, given the story above, there is certainly concerns on the pacemaker side for other sensing or pacing. He will be sending out a fulfillment representative for evaluation of the pacemaker. On physical exam, the patient appears comfortable. His oxygen saturation is 95 % on 3 L but will drop into the upper 80s when talking. His heart rate is 60 and his blood pressure is 129/66. Tapia is placed. He is getting IV Lasix. He is requesting pain medicine for "pain all over" and I will give him a small amount of morphine to keep him comfortable. 02/17/18 14:40 02/17/18 16:41 Bart from [employer] was interrogated the pacemaker in depth at the bedside: The patient has a biventricular pacer and atrial and ventricular rates have good thresholds and are functioning appropriately. I discussed the case with Dr. Still of cardiology and he agrees with bring the patient in for diuresis and further evaluation. 02/17/18 16:44 02/17/18 16:56 Patient has had 1600 urine output thus far in the ER - Vital Signs Vital signs: Temp Pulse Resp BP Pulse Ox 98 F 60 20 130/61 H 92 02/17/18 20:18 02/17/18 21:16 02/17/18 21:16 02/17/18 20:18 02/17/18 21:16 - Laboratory Result Diagrams: 02/17/18 13:54 02/17/18 13:54 Laboratory results interpreted by me: 02/17/18 02/17/18 02/17/18 13:54 13:54 13:54 RBC 3.11 L Hgb 8.9 L Hct 27.4 L RDW 16.8 H Chloride 97 L Carbon Dioxide 36 H BUN 53 H Creatinine 1.81 H Est GFR ( Amer) 45 L Est GFR (Non-Af Amer) 37 L ALT 12 L NT-Pro-B Natriuret Pep 2860 H - Diagnostic Test Radiology reviewed: Image reviewed, Reports reviewed - Cardiomegaly - EKG Interpretation by Me Rhythm: A.Fib - She has a samish rhythm of atrial fibrillation at rates in the 70s. Pacemaker does kick in with apparent 100% capture on 12-lead at a rate of 60. Critical Care Note - Critical Care Note Total time excluding time spent on procedures (mins): 60 Discharge - Discharge Bad tableCondition: Stable Disposition: ADMITTED INPATIENT Admitting Provider: Hospitalist - Dr New Unit Admitted: Telemetry
[2018-02-17] MEDS ORDERED: MORPHINE SULFATE 10 MG/ML INJ IV ONE (14:39)
[2018-02-17] MEDS ORDERED: FUROSEMIDE INJ/PF 40 MG/4 ML SDV IV ONE ×2 (14:40→16:45)
[2018-02-17 14:45] LABS: ALANINE AMINOTRANSFERASE 12 U/L (21-72); ALBUMIN 3.7 g/dL (3.5-5.0); ALKALINE PHOSPHATASE 68 U/L (38-126); ANION GAP 10 (5-19); ASPARTATE AMINO TRANSFERASE 41 U/L (17-59); BILIRUBIN,DIRECT 0.3 mg/dL (0.0-0.4); BILIRUBIN,TOTAL 0.6 mg/dL (0.2-1.3); BLOOD UREA NITROGEN 53 mg/dL (7-20); CALCIUM 8.4 mg/dL (8.4-10.2); CARBON DIOXIDE 36 mmol/L (22-30); CHLORIDE 97 mmol/L (98-107); CREATINE KINASE 59 U/L (55-170); GLUCOSE 103 mg/dL (75-110); POTASSIUM 4.4 mmol/L (3.6-5.0); SODIUM 142.8 mmol/L (137-145)
[2018-02-17 14:58] LABS: APPEARANCE,URINE CLEAR; BILIRUBIN,URINE NEGATIVE (NEGATIVE); COLOR,URINE YELLOW; GLUCOSE, URINE NEGATIVE (NEGATIVE); KETONES,URINE NEGATIVE (NEGATIVE); LEUKOCYTE ESTERASE,URINE NEGATIVE (NEGATIVE); NITRITE,URINE NEGATIVE (NEGATIVE); PROTEIN,URINE NEGATIVE (NEGATIVE); URINE SPECIFIC GRAVITY 1.009; UROBILINOGEN,URINE NEGATIVE mg/dL (<2.0)
[2018-02-17 15:00] LABS: CREATINE KINASE MB 1.08 ng/mL (<4.55)
--- NOTE | 2018-02-17 15:02 | RADIOLOGY REPORT (SQ) ---
EXAM DESCRIPTION: CHEST SINGLE VIEW COMPLETED DATE/TIME: 02/17/2018 2:48 pm REASON FOR STUDY: sob COMPARISON: 02/08/2018 NUMBER OF VIEWS: One view. TECHNIQUE: Single frontal radiographic image of the chest acquired. LIMITATIONS: Body habitus. FINDINGS: LUNGS AND PLEURA: Interstitial edema. Silhouetting of the left diaphragm and inferior hea rt border may represent superimposed pneumonia. MEDIASTINUM AND HEART: Stable heart size and mediastinal structures. SUPPORT DEVICES: Appropriate location without change. BONY STRUCTURES: No acute findings. HARDWARE: None. OTHER: No other significant finding. IMPRESSION: CHF. Possible superimposed pneumonia left lower lobe. Reading location - IP/workstation name: [email or web address]
[2018-02-17 15:04] LABS: TROPONIN I 0.019 ng/mL
[2018-02-17] MEDS ORDERED: ACETAMINOPHEN 325 MG TABLET PO PRN (17:01)
[2018-02-17] MEDS ORDERED: ONDANSETRON HCL INJ/PF 4 MG/2 ML SDV IV PRN (17:01)
[2018-02-17] MEDS ORDERED: OXYCODONE-ACETAMINOPHEN 5-325 MG TABLET PO PRN (17:01)
[2018-02-17] MEDS ORDERED: ALBUTEROL SULFATE 0.083% NEB 2.5 MG/3 ML AMPUL NEB PRN (17:01)
[2018-02-17] MEDS ORDERED: MAG HYDROX/AL HYDROX/SIMETH SUSP 30 ML UDCUP PO PRN (17:01)
--- NOTE | 2018-02-17 17:29 | PDOC H&P ---
History of Present Illness Admission Date/PCP: 02/17/18 17:03 MAURICE ORTIZ DO Patient complains of: Difficulty breathing and shortness of breath History of Present Illness: DANIEL OLIVA is a 72 year old male This patient presents emergency room with complaints of change in mental status and chest pain. He was apparently found to be bradycardic by the EMS and received 2 mg of atropine total and was transported to the emergency room. In the emergency room he was found to have a heart rate of about 67 with oxygen saturation of 89% on 2 L of oxygen. By the time I saw him patient was pretty comfortable with his heart rate maintaining at about 66. This patient was just discharged from the hospital about a days ago. He actually looks better than when he was here the last time. His BNP is down from a discharge. He is chronically on oxygen and he has chronic edema with anasarca. Past Medical History Cardiac Medical History: Reports: Atrial Fibrillation, Congestive Heart Failure , Coronary Artery Disease, Myocardial Infarction, Hyperlipidema, Hypertension, Pulmonary Embolism Pulmonary Medical History: Reports: Chronic Obstructive Pulmonary Disease (COPD) Neurological Medical History: Denies: Seizures Endocrine Medical History: Denies: Diabetes Mellitus Type 2 - History of same, but only on medication for short time. Renal/ Medical History: Denies: End Stage Renal Disease GI Medical History: Denies: Crohn's Disease, Ulcerative Colitis Musculoskeltal Medical History: Reports: Arthritis Skin Medical History: Denies: Psoriasis Psychiatric Medical History: Reports: Depression Traumatic Medical History: Denies: Traumatic Brain Injury Hematology: Denies: Hemophilia, Sickle Cell Disease Past Surgical History Past Surgical History: Reports: Cardiac Catheterization, Coronary Artery Bypass Graft, Coronary Stent, Internal Defibrillator, Pacemaker - Battery change out and then explantation., Tonsillectomy Social History Information Source: [facility] Records Smoking Status: Former Smoker Frequency of Alcohol Use: Rare Hx Recreational Drug Use: No Drugs: None Hx Prescription Drug Abuse: No - Advance Directive Resuscitation Status: Full Code Family History Family History: Reviewed & Not Pertinent, CAD, COPD, Hypertension Parental Family History Reviewed: No Children Family History Reviewed: No Sibling(s) Family History Reviewed.: No Medication/Allergy Home Medications: Amiodarone HCl [Cordarone 200 mg Tablet] 200 mg PO DAILY 02/03/18 Apixaban [Eliquis 5 mg Tablet] 5 mg PO Q12 02/03/18 Aspirin [Adult Low Dose Aspirin EC] 81 mg PO QAM 02/03/18 Atorvastatin Calcium [Lipitor 40 mg Tablet] 40 mg PO QHS 02/03/18 Methocarbamol [Robaxin 750 mg Tablet] 750 mg PO Q6HP PRN 02/03/18 Omeprazole 20 mg PO QAM 02/03/18 Oxycodone HCl/Acetaminophen [Percocet 10-325 mg Tablet] 1 tab PO Q6HP PRN Sertraline HCl [Zoloft 50 mg Tablet] 50 mg PO DAILY 02/03/18 Torsemide [Demadex 20 mg Tablet] 20 mg PO DAILY 02/03/18 Umeclidinium Brm/Vilanterol Tr [Anoro Ellipta 62.5-25 Mcg INH] 1 puff IH QAM 04/13 Acetaminophen [Tylenol 325 mg Tablet] 650 mg PO Q6HP PRN #30 tablet 02/09/18 Furosemide [Lasix 20 mg Tablet] 20 mg PO QAM #30 tablet 02/09/18 Gabapentin [Neurontin 100 mg Capsule] 100 mg PO Q12 PRN #30 capsule 02/09/18 Oxycodone HCl/Acetaminophen [Oxycodone-Acetaminophen 10-325] 1 each PO Q6H PRN # 12 tablet 02/09/18 Allergies/Adverse Reactions: No Known Allergies Allergy (Verified 02/17/18 14:22) Review of Systems ROS unobtainable: Due to mental status Physical Exam Vital Signs: Temp Pulse Resp BP Pulse Ox 97.9 F 17 133/86 H 92 02/17/18 13:56 02/17/18 16:31 02/17/18 16:31 02/17/18 16:31 General appearance: PRESENT: no acute distress, well-developed, well-nourished Head exam: PRESENT: atraumatic Eye exam: PRESENT: PERRLA Mouth exam: PRESENT: dry mucosa Neck exam: ABSENT: carotid bruit, JVD, lymphadenopathy, thyromegaly Respiratory exam: PRESENT: clear to auscultation shivani. ABSENT: rales, rhonchi, wheezes Cardiovascular exam: PRESENT: irregular rhythm, RRR, +S1, +S2. ABSENT: diastolic murmur, rubs, systolic murmur GI/Abdominal exam: PRESENT: normal bowel sounds, soft. ABSENT: distended, guarding, mass, organolmegaly, rebound, tenderness Rectal exam: PRESENT: deferred Extremities exam: PRESENT: other - 3 + edema, anasarca Neurological exam: PRESENT: alert, awake, oriented to person, oriented to situation Psychiatric exam: PRESENT: appropriate affect Results Laboratory Results: 02/17/18 13:54 02/17/18 13:54 MCV 88 fl (80-97) 02/17/18 13:54 MCH 28.7 pg (27.0-33.4) 02/17/18 13:54 MCHC 32.5 g/dL (32.0-36.0) 02/17/18 13:54 RDW 16.8 % (11.5-14.0) H 02/17/18 13:54 Seg Neutrophils % 59.6 % (42-78) 02/17/18 13:54 Lymphocytes % 22.5 % (13-45) 02/17/18 13:54 Monocytes % 11.4 % (3-13) 02/17/18 13:54 Eosinophils % 5.7 % (0-6) 02/17/18 13:54 Basophils % 0.8 % (0-2) 02/17/18 13:54 Absolute Neutrophils 3.0 10^3/uL (1.7-8.2) 02/17/18 13:54 Absolute Lymphocytes 1.1 10^3/uL (0.5-4.7) 02/17/18 13:54 Absolute Monocytes 0.6 10^3/uL (0.1-1.4) 02/17/18 13:54 Absolute Eosinophils 0.3 10^3/uL (0.0-0.6) 02/17/18 13:54 Absolute Basophils 0.0 10^3/uL (0.0-0.2) 02/17/18 13:54 Chloride 97 mmol/L (98-107) L 02/17/18 13:54 Carbon Dioxide 36 mmol/L (22-30) H 02/17/18 13:54 Anion Gap 10 (5-19) 02/17/18 13:54 Est GFR ( Amer) 45 (>60) L 02/17/18 13:54 Est GFR (Non-Af Amer) 37 (>60) L 02/17/18 13:54 Glucose 103 mg/dL (75-110) 02/17/18 13:54 Calcium 8.4 mg/dL (8.4-10.2) 02/17/18 13:54 Magnesium 2.3 mg/dL (1.6-2.3) 02/17/18 13:54 Total Bilirubin 0.6 mg/dL (0.2-1.3) 02/17/18 13:54 AST 41 U/L (17-59) 02/17/18 13:54 ALT 12 U/L (21-72) L 02/17/18 13:54 Alkaline Phosphatase 68 U/L (38-126) 02/17/18 13:54 Total Protein 8.0 g/dL (6.3-8.2) 02/17/18 13:54 Albumin 3.7 g/dL (3.5-5.0) 02/17/18 13:54 Urine Color YELLOW 02/17/18 14:20 Urine Appearance CLEAR 02/17/18 14:20 Urine pH 6.0 (5.0-9.0) 02/17/18 14:20 Ur Specific [place] 1.009 02/17/18 14:20 Urine Protein NEGATIVE mg/dL (NEGATIVE) 02/17/18 14:20 Urine Glucose (UA) NEGATIVE mg/dL (NEGATIVE) 02/17/18 14:20 Urine Ketones NEGATIVE mg/dL (NEGATIVE) 02/17/18 14:20 Urine Blood NEGATIVE (NEGATIVE) 02/17/18 14:20 Urine Nitrite NEGATIVE (NEGATIVE) 02/17/18 14:20 Ur Leukocyte Esterase NEGATIVE (NEGATIVE) 02/17/18 14:20 Urine WBC (Auto) 1 /HPF 02/17/18 14:20 Urine RBC (Auto) 1 /HPF 02/17/18 14:20 02/17/18 02/17/18 13:54 13:54 Creatine Kinase 59 CK-MB (CK-2) 1.08 Troponin I 0.019 NT-Pro-B Natriuret Pep 2860 H Impressions: Chest X-Ray 02/17/18 14:12 IMPRESSION: CHF. Possible superimposed pneumonia left lower lobe. Assessment & Plan - Diagnosis (1) Acute and chronic respiratory failure Qualifiers: Respiratory failure complication: hypoxia and hypercapnia Qualified Code(s) : J96.21 - Acute and chronic respiratory failure with hypoxia; J96.22 - Acute and chronic respiratory failure with hypercapnia; J96.22 - Acute and chronic respiratory failure with hypercapnia; J96.22 - Acute and chronic respiratory failure with hypercapnia Is this a current diagnosis for this admission?: Yes Plan: Continue with oxygen support as well as BiPAP as needed. Patient does use BiPAP at home nocturnally. (2) Atrial fibrillation Qualifiers: Atrial fibrillation type: paroxysmal Qualified Code(s): I48.0 - Paroxysmal atrial fibrillation Is this a current diagnosis for this admission?: Yes Plan: Patient has underlying atrial fibrillation although is currently now paced breathing. It appears that his pacemaker was interrogated and asked by ED physician appears to be functioning well. The [employer] rep was actually here to interrogated as per the ED physician (3) CHF exacerbation Qualifiers: Heart failure type: combined systolic and diastolic Qualified Code(s): I50.43 - Acute on chronic combined systolic (congestive) and diastolic ( congestive) heart failure Is this a current diagnosis for this admission?: Yes Plan: This is a chronic problem and in fact having admitted the patient last time he is in relatively good shape. At any rate he will be admitted for IV Lasix. I had requested CHF education as well as information for him and his son during his last admission and I believe this was done however he may not be a bad idea to reinforce these - Time Time Spent: 50 to 70 Minutes Medications reviewed and adjusted accordingly: Yes Anticipated discharge: Home Within: within 72 hours - Inpatient Certification Based on my medical assessment, after consideration of the patient's comorbidities, presenting symptoms, or acuity I expect that the services needed warrant INPATIENT care.: Yes Medical Necessity: Need For Continuous Telemetry Monitoring, Other - IV Lasix
--- NOTE | 2018-02-17 20:26 | EKG REPORT ---
SEVERITY:- ABNORMAL ECG - ATRIAL FIBRILLATION NONSPECIFIC IVCD WITH LAD INFERIOR INFARCT, AGE INDETERMINATE ANTERIOR INFARCT, OLD : Confirmed by: Farzana Still 17-Feb-2018 17:25:54
--- NOTE | 2018-02-17 20:26 | EKG REPORT ---
SEVERITY:- ABNORMAL ECG - A-V DUAL-PACED COMPLEXES W/ SOME INHIBITION : Confirmed by: Farzana Still 17-Feb-2018 17:25:05
[2018-02-17] MEDS: IPRATROPIUM/ALBUTEROL 0.5-2.5 MG/3 ML AMPUL NEB SCH (21:16)
[2018-02-17] MEDS: APIXABAN 5 MG TABLET PO SCH (22:26)
[2018-02-17] MEDS: FUROSEMIDE INJ/PF 40 MG/4 ML SDV IV SCH (22:26)
[2018-02-18] MEDS ORDERED: DEXTROSE 50%-WATER SYRINGE 25 GM/50 ML DOSE IV PRN (00:17)
[2018-02-18] MEDS ORDERED: DEXTROSE 40% GEL 15 GM TUBE PO PRN (00:17)
[2018-02-18] MEDS ORDERED: GLUCAGON,HUMAN RECOMB 1 MG INJ IM PRN (00:17)
[2018-02-18] MEDS ORDERED: DEXTROSE 50%-WATER SYRINGE 12.5 GM/25 ML DOSE IV PRN (00:17)
[2018-02-18] MEDS ORDERED: INSULIN LISPRO 100 UNIT/ML 3 ML VIAL SUBCUT PRN (00:17)
[2018-02-18] MEDS ORDERED: DEXTROSE 40% GEL 15 GM TUBE X 2 PO PRN (00:17)
[2018-02-18] MEDS: IPRATROPIUM/ALBUTEROL 0.5-2.5 MG/3 ML AMPUL NEB SCH ×2 (01:30→08:35)
[2018-02-18 07:30] LABS: HEMATOCRIT 26.8 % (37.9-51.0); HEMOGLOBIN 8.8 g/dL (13.5-17.0); MEAN CORPUSCULAR HEMOGLOBIN 28.9 pg (27.0-33.4); MEAN CORPUSCULAR HGB CONC 32.9 g/dL (32.0-36.0); MEAN CORPUSCULAR VOLUME 88 fl (80-97); PLATELET COUNT 181 10^3/uL (150-450); RED BLOOD COUNT 3.05 10^6/uL (4.35-5.55); RED CELL DISTRIBUTION WIDTH 16.7 % (11.5-14.0); WHITE BLOOD COUNT 5.4 10^3/uL (4.0-10.5)
[2018-02-18 07:53] LABS: ANION GAP 6 (5-19); BLOOD UREA NITROGEN 45 mg/dL (7-20); CALCIUM 8.5 mg/dL (8.4-10.2); CARBON DIOXIDE 39 mmol/L (22-30); CHLORIDE 98 mmol/L (98-107); GLUCOSE 102 mg/dL (75-110); SODIUM 143.3 mmol/L (137-145)
[2018-02-18] MEDS: APIXABAN 5 MG TABLET PO SCH ×2 (09:25→21:07)
[2018-02-18] MEDS: FUROSEMIDE INJ/PF 40 MG/4 ML SDV IV SCH ×2 (09:26→17:53)
[2018-02-18] MEDS ORDERED: (PENDING PHARMACY ID) (Oxycodone Hcl/Acetaminophen [Endocet 10-325 Mg Tablet] 1 TAB) PO PRN (12:30)
[2018-02-18] MEDS ORDERED: GABAPENTIN 100 MG CAPSULE PO PRN (12:30)
[2018-02-18] MEDS ORDERED: SIMETHICONE 80 MG TAB.CHEW PO PRN (12:30)
[2018-02-18] MEDS ORDERED: ONDANSETRON 4 MG TAB.RAPDIS PO PRN (12:35)
[2018-02-18] MEDS: AMIODARONE HCL 200 MG TABLET PO SCH (13:20)
--- NOTE | 2018-02-18 14:06 | PROGRESS NOTE E ---
Progress Note NAME: DANIEL OLIVA : 1945 AGE: 72Y DATE: 02/18/2018 ROOM: 336 SUBJECTIVE: The patient is lying in bed. The patient states that he feels much better today in comparison to yesterday. The patient has been afebrile. His blood pressures have been in a good range. The patient's son is present at the bedside, active in the patient's care. The patient's heart rate is sustained around 60. The patient asks repeatedly to have his Tapia removed and the patient does not voice any other concerns at this time. REVIEW OF SYSTEMS: The rest of the review of systems is negative. MEDICATION: Medication has been reviewed. OBJECTIVE: GENERAL: The patient is a 72-year-old male who is awake, alert, and oriented to person, place, time, and situation. He is verbal, conversational, and does not appear to be in any acute distress. VITAL SIGNS: Temperature is 97.8, pulse 60, respirations 28, blood pressure is 116/40, oxygen saturation is 91% on 30% FIO2 on BiPAP. SKIN: Warm and dry. No rash. He is not diaphoretic. HEENT: Pupils equal, round, and reactive to light and accommodation. Conjunctivae pink. NECK: There is no evidence of JVD. CARDIOVASCULAR SYSTEM: Heart is paced. There is no rub. CHEST: Diminished, symmetrical, unlabored. ABDOMEN: Obese, soft, nontender. EXTREMITIES: No clubbing, cyanosis. PSYCHIATRIC: Appropriate affect, pleasant mood. DIAGNOSTIC DATA: Lab values are as follows: Hematology obtained on 02/18/2018: WBCs are 5.4, hemoglobin is 8.8, hematocrit is 26.8, platelet count is 188,000. Chemistries obtain on 02/18/2018: Sodium is 143, potassium is 4.0, chloride is 98, carbon dioxide 39, BUN 45, creatinine 1.74, glucose 102, calcium is 8.5. IMPRESSION AND PLAN: 1. ACUTE ON CHRONIC SYSTOLIC AND DIASTOLIC CONGESTIVE HEART FAILURE. Will continue Lasix, but change scheduling for 6 and 6. The patient has received CHF education. The patient has been unable to tolerate an KELSEY in the past due to hyperkalemia with his renal failure. Additionally, the patient's rate required control with amiodarone and is unable to tolerate a beta tam. Will follow. 2. PAROXYSMAL ATRIAL FIBRILLATION. THE PATIENT IS CURRENTLY PACED. Will continue anticoagulation with Eliquis and follow. 3. ACUTE ON CHRONIC HYPOXEMIC RESPIRATORY FAILURE. THIS IS SECONDARY TO #1. The patient's BiPAP is being weaned. He is BiPAP dependent at night at home. 4. CHRONIC KIDNEY DISEASE, STAGE 3. IT APPEARS THE PATIENT'S BASELINE CREATININE IS IN THE 1.3 RANGE. Will continue to follow. 5. OPIOID DEPENDENCY CONTINUOUS. Will continue the patient's home medications. 6. DIABETES MELLITUS TYPE 2. This is well diet controlled. The patient's A1c was found to be 5.2. 7. CHRONIC OBSTRUCTIVE PULMONARY DISEASE WITH OXYGEN DEPENDENCY. The patient currently wears 2 to 3 L at home at all times. 8. BRADYCARDIA. Apparently, the patient got 2 rounds of atropine in the field. However, upon interrogation, this was not noted. DISPOSITION: The patient is a FULL CODE. Pending the patient's symptomatology and diagnostic findings, will reevaluate in the a.m. TIME SPENT: Time spent on this followup including assessment and plan, physical examination, patient education, review of records and family meeting was 35 minutes. DICTATING PHYSICIAN: MCKAY BARON NP [id number] PHY#: [id number] ID: [id number] JOB#: [id number] ACCT: [id number] cc: > MTDD
[2018-02-18] MEDS: OXYCODONE-ACETAMINOPHEN 5-325 MG TABLET PO PRN ×2 (15:11→21:07)
[2018-02-18] MEDS: OXYCODONE HCL IR 5 MG TABLET PO PRN ×2 (15:11→21:08)
[2018-02-19] MEDS: OXYCODONE HCL IR 5 MG TABLET PO PRN ×4 (03:18→21:57)
[2018-02-19] MEDS: OXYCODONE-ACETAMINOPHEN 5-325 MG TABLET PO PRN ×4 (03:19→21:57)
[2018-02-19] MEDS: FUROSEMIDE INJ/PF 40 MG/4 ML SDV IV SCH ×2 (05:14→17:48)
[2018-02-19] MEDS: AMIODARONE HCL 200 MG TABLET PO SCH (09:34)
[2018-02-19] MEDS: APIXABAN 5 MG TABLET PO SCH ×2 (09:34→21:57)
[2018-02-19] MEDS: ATORVASTATIN CALCIUM 40 MG TABLET PO SCH (09:35)
[2018-02-19] MEDS: SERTRALINE HCL 50 MG TABLET PO SCH (09:35)
--- NOTE | 2018-02-19 14:31 | PROGRESS NOTE E ---
Progress Note NAME: DANIEL OLIVA : 1945 AGE: 72Y DATE: 02/19/2018 ROOM: 336 SUBJECTIVE: The patient is lying in bed. He states that he feels slightly better today. Does complain of some back pain, which is chronic for him. The patient has been transitioned to nasal cannula and has tolerated it relatively well. The patient does complain about excessive urinary output related to diuretic, and time has been altered to accommodate a 6 and 6 dosing. The patient has been afebrile. Blood pressure has been in good range. The patient has not voiced any other concerns at this time. BRIEF HISTORY: The patient is a 72-year-old male that is well-known to the Hospitalist service, due to chronic systolic and diastolic congestive heart failure with multiple admissions for exacerbation. The patient has an EF of about 45%, with moderate diastolic dysfunction. The patient has severe left atrial dilation as well. The patient has had 6 ER visits and 5 inpatient visits since June of this year. The patient has been admitted for diuresis. REVIEW OF SYSTEMS: The rest of the review of systems is negative. MEDICATIONS: Reviewed. OBJECTIVE: GENERAL: The patient is a 72-year-old male, who is awake, alert and oriented to person, place, time and situation. He is verbal and conversational and does not appear to be distressed. VITAL SIGNS: Temperature is 97.5, pulse 89, respirations 20, blood pressure is 110/61, oxygen saturation is 100% on 4.5 liters nasal cannula. SKIN: Warm, dry. No rash. Not diaphoretic. HEENT: Pupils are reactive. The patient does have JVP to the right clavicle. CVS: Heart is paced. Normal sinus rhythm. CHEST: Symmetrical, unlabored, with bilateral basal crackles. ABDOMEN: Distended, with anasarca. No areas of focal tenderness. EXTREMITIES: The patient does have +3 bilateral lower extremity pitting edema. PSYCHIATRIC: The patient is at baseline. DIAGNOSTICS: Lab values are as follows: Hematology obtained on 02/18/2018: WBC is 5.4, hemoglobin is 8.8, hematocrit is 26.8, platelet count is 181,000. Chemistries obtained on 02/18/2018: Sodium is 143, potassium 4.0, chloride is 98, carbon dioxide 39, BUN 45, creatinine 0.74, glucose 102. Calcium is 8.5. IMPRESSION AND PLAN: 1. ACUTE ON CHRONIC SYSTOLIC AND DIASTOLIC CONGESTIVE HEART FAILURE. Will continue Lasix dosing. The patient has received CHF education and unfortunately, patient was unable to tolerate an KELSEY in the past, due to hyperkalemia, due to his renal failure. The patient requires amiodarone for rate control and could not handle the additional beta tam. Will follow. 2. PAROXYSMAL ATRIAL FIBRILLATION. The patient is currently paced. Continue anticoagulation with Eliquis and amiodarone and follow. 3. ACUTE ON CHRONIC HYPOXEMIC RESPIRATORY FAILURE. This is secondary to #1. The patient's BiPAP has been weaned. He is currently tolerating nasal cannula. Will follow. 4. CHRONIC KIDNEY DISEASE, STAGE III. The patient appears to have a baseline creatinine in the 1.5 range. Will follow. 5. OPIATE DEPENDENCY. Continue with home medications. 6. DIABETES MELLITUS TYPE 2. This appears to be well-controlled by diet. His A1c was 5.2. Discontinue Accu-Cheks. 7. CHRONIC OBSTRUCTIVE PULMONARY DISEASE WITH OXYGEN DEPENDENCY. The patient currently wears 2 to 3 liters at home at all times. 8. SUSPECTED BRADYCARDIA. Apparently the patient got 2 rounds of atropine in the field; however, upon interrogation of his pacer, this was not recovered. DISPOSITION: The patient is a FULL CODE. Pending patient's symptomatology and diagnostic findings, will reevaluate in the a.m. Time spent on this followup, including assessment, plan, physical examination, patient education and review of records, is 25 minutes. DICTATING PHYSICIAN: MCKAY BARON NP [id number] PHY#: [id number] ID: [id number] JOB#: [id number] ACCT: [id number] cc: >
[2018-02-20] MEDS: OXYCODONE HCL IR 5 MG TABLET PO PRN ×2 (04:25→12:10)
[2018-02-20] MEDS: OXYCODONE-ACETAMINOPHEN 5-325 MG TABLET PO PRN ×2 (04:25→12:09)
[2018-02-20] MEDS: FUROSEMIDE INJ/PF 40 MG/4 ML SDV IV SCH (05:22)
[2018-02-20 07:31] LABS: HEMATOCRIT 25.7 % (37.9-51.0); HEMOGLOBIN 8.4 g/dL (13.5-17.0); MEAN CORPUSCULAR HGB CONC 32.7 g/dL (32.0-36.0); MEAN CORPUSCULAR VOLUME 89 fl (80-97); PLATELET COUNT 191 10^3/uL (150-450); RED CELL DISTRIBUTION WIDTH 16.6 % (11.5-14.0); WHITE BLOOD COUNT 5.1 10^3/uL (4.0-10.5)
[2018-02-20 08:12] LABS: ANION GAP 11 (5-19); BLOOD UREA NITROGEN 49 mg/dL (7-20); CALCIUM 8.5 mg/dL (8.4-10.2); CARBON DIOXIDE 36 mmol/L (22-30); CHLORIDE 96 mmol/L (98-107); GLUCOSE 92 mg/dL (75-110); POTASSIUM 4.5 mmol/L (3.6-5.0); SODIUM 142.9 mmol/L (137-145)
[2018-02-20] MEDS: ATORVASTATIN CALCIUM 40 MG TABLET PO SCH (09:23)
[2018-02-20] MEDS: SERTRALINE HCL 50 MG TABLET PO SCH (09:23)
[2018-02-20] MEDS: AMIODARONE HCL 200 MG TABLET PO SCH (09:23)
[2018-02-20] MEDS: APIXABAN 5 MG TABLET PO SCH (09:23)
--- NOTE | 2018-02-20 12:49 | PDOC DISCHARGE SUMMARY ---
General - Admit/Disc Date/PCP Admission Date/Primary Care Provider: 02/17/18 17:03 MAURICE ORTIZ, DO Discharge Date: 02/20/18 - Discharge Diagnosis (1) Acute and chronic respiratory failure Is this a current diagnosis for this admission?: Yes (4) Atrial fibrillation Is this a current diagnosis for this admission?: Yes - Additional Information Resuscitation Status: Full Code Discharge Diet: As Tolerated, Cardiac Discharge Activity: Activity As Tolerated, Balance Activity w/Rest, Weigh Daily Prescriptions: Furosemide [Lasix 40 mg Tablet] 40 mg PO BID #60 tablet Home Medications: Amiodarone HCl [Cordarone 200 mg Tablet] 200 mg PO DAILY 02/17/18 Apixaban [Eliquis] 5 mg PO Q12 02/17/18 Atorvastatin Calcium [Lipitor 40 mg Tablet] 40 mg PO DAILY 02/17/18 Gabapentin [Neurontin 100 mg Capsule] 100 mg PO Q12HP PRN 02/17/18 Oxycodone HCl/Acetaminophen [Endocet 10-325 mg Tablet] 1 tab PO Q6HP PRN Sertraline HCl [Zoloft 50 mg Tablet] 50 mg PO DAILY 02/17/18 Simethicone [Mylicon 80 mg Chewable Tablet] 160 mg PO Q6HP PRN 02/17/18 Furosemide [Lasix 40 mg Tablet] 40 mg PO BID #60 tablet 02/20/18 History of Present Illness History of Present Illness: DANIEL OLIVA is a 72 year old male This patient presents emergency room with complaints of change in mental status and chest pain. He was apparently found to be bradycardic by the EMS and received 2 mg of atropine total and was transported to the emergency room. In the emergency room he was found to have a heart rate of about 67 with oxygen saturation of 89% on 2 L of oxygen. By the time I saw him patient was pretty comfortable with his heart rate maintaining at about 66. This patient was just discharged from the hospital about a days ago. He actually looks better than when he was here the last time. His BNP is down from a discharge. He is chronically on oxygen and he has chronic edema with anasarca. Hospital Course Hospital Course: This patient is 72 years old white male with multiple medical problems including hypertension, diabetes, sleep apnea, COPD, chronic diastolic congestive heart failure who presented to the emergency room due to acute exacerbation of CHF. He takes torsemide and Lasix both 20 mg 1 during the day and 1 at night. He received IV Lasix 40 mg twice daily. He also received oxygen as needed. He also uses oxygen at home chronically. He had an echocardiogram couple months ago that shows normal EF of 65%. Patient responded very well to diuresis and improved significantly and is stable for discharge. We will increase his diuretics to be Lasix 40 mg orally twice daily and he was given prescription for that. He has an appointment with his cattle broker in 2 days and he should keep that appointment. He also has an appointment with his primary care physician later today and also he should keep if he can. I discussed with this patient and his son the plan of care and they both in agreement Physical Exam Vital Signs: Temp Pulse Resp BP Pulse Ox 97.5 F 58 L 18 115/60 95 02/20/18 11:51 02/20/18 11:51 02/20/18 11:51 02/20/18 11:51 02/20/18 12:22 Pulse Oximeter Continuous Start: 02/18/18 20: 56 Freq: RTQ4 Status: Active Document 02/20/18 12:22 TPO (Rec: 02/20/18 12:22 TPO [email or web address]) Pulse Oximetry Assessment Oxygen Saturation (92-100) 95 Oxygen Flow Rate (L/min) 4 Oxygen Delivery Method Nasal Cannula Fraction of Inspired Oxygen (FIO2) 36 Equipment Usage Equipment in Use Continuous SpO2 Machine # 1 Intake & Output 02/19/18 02/20/18 02/21/18 06:59 06:59 06:59 Intake Total 1523 1049 236 Output Total 1250 2500 975 Balance 246 -6424 -322 Weight 300 lb 0.786 oz 294 lb 1.546 oz General appearance: PRESENT: no acute distress, cooperative Head exam: PRESENT: atraumatic, normocephalic Eye exam: ABSENT: conjunctival injection Mouth exam: PRESENT: moist Throat exam: ABSENT: post pharyngeal erythema Neck exam: ABSENT: meningismus, tenderness, thyromegaly Respiratory exam: PRESENT: decreased breath sounds. ABSENT: accessory muscle use, clear to auscultation shivani Cardiovascular exam: PRESENT: RRR Pulses: PRESENT: normal radial pulses GI/Abdominal exam: PRESENT: normal bowel sounds Extremities exam: PRESENT: pedal edema Neurological exam: PRESENT: alert, altered, awake, oriented to person, oriented to place, oriented to time, oriented to situation Psychiatric exam: PRESENT: appropriate affect. ABSENT: agitated, anxious, depressed Results Laboratory Results: 02/20/18 06:59 02/20/18 06:59 02/20/18 02/20/18 06:59 06:59 WBC 5.1 RBC 2.90 L Hgb 8.4 L Hct 25.7 L MCV 89 MCH 29.0 MCHC 32.7 RDW 16.6 H Plt Count 191 Sodium 142.9 Potassium 4.5 Chloride 96 L Carbon Dioxide 36 H Anion Gap 11 BUN 49 H Creatinine 1.85 H Est GFR ( Amer) 44 L Est GFR (Non-Af Amer) 36 L Glucose 92 Calcium 8.5 Magnesium 2.2 02/17/18 18:30 Troponin I 0.017 Impressions: Chest X-Ray 02/17/18 14:12 IMPRESSION: CHF. Possible superimposed pneumonia left lower lobe. Qualifiers - * PATIENT BEING DISCHARGED WITH ANY OF THE FOLLOWING DIAGNOSIS: Heart Failure HF Pt being discharged on ACEI for LVEF less than 40%?: No Reason(s) for not prescribing ACEI:: Tx not tolerated HF Pt being discharged on ARBS for LVEF less than 40%?: No Reason(s) for not prescribing ARBS:: Tx not tolerated HF Pt with Afib discharged with Warfarin?: No Reason(s) for not prescribing Warfarin:: Not indicated - Shunt is on Eliquis HF Pt discharged on evidence-based Beta Jacobo:: No Reason(s) for not prescribing evidence-based Beta Jacobo:: Tx not tolerated
[2018-02-20 13:16] VITALS: BP 130/61
== END 2018-02-20 16:24 | disposition home or self-care (01) | DRG 189 ==
LOC: ER 13:48 → UNDOADMIN 17:03 → EH 17:03 → 3S 19:50
PROVIDERS: ADMIT Internal Medicine; ATTEND Internal Medicine
DX: J96.21 Acute and chronic respiratory failure with hypoxia (principal); I50.33 Acute on chronic diastolic (congestive) heart failure; I13.0 Hypertensive heart and chronic kidney disease with heart failure and stage 1 through stage 4 chronic kidney disease, or unspecified chronic kidney disease; F11.20 Opioid dependence, uncomplicated; E11.22 Type 2 diabetes mellitus with diabetic chronic kidney disease; N18.3 Chronic kidney disease, stage 3 (moderate); I48.0 Paroxysmal atrial fibrillation; R00.1 Bradycardia, unspecified; J44.9 Chronic obstructive pulmonary disease, unspecified; G47.30 Sleep apnea, unspecified; I25.10 Atherosclerotic heart disease of native coronary artery without angina pectoris; M19.90 Unspecified osteoarthritis, unspecified site; F32.9 Major depressive disorder, single episode, unspecified; Z79.02 Long term (current) use of antithrombotics/antiplatelets; Z99.81 Dependence on supplemental oxygen; I25.2 Old myocardial infarction; Z86.711 Personal history of pulmonary embolism; Z95.1 Presence of aortocoronary bypass graft; Z95.0 Presence of cardiac pacemaker; Z87.891 Personal history of nicotine dependence
CPT/HCPCS: 36415; 71045; 80048; 80053; 81001; 82550; 82553; 82962; 83735; 83880; 84484; 85025; 85027; 93005; 93010; 94640; 94660; 94762; 96374; 96375; 99291; G8978-GP; G8979-GP; J1940; J2270; J7620

== ENCOUNTER 2018-03-05 16:30 | Inpatient (IN) | payer MEDICARE, MEDICAID ==
[2018-03-05 16:53] LABS: ABSOLUTE EOSINOPHILS # (AUTO) 0.3 10^3/uL (0.0-0.6); ABSOLUTE LYMPHOCYTES (AUTO) 1.2 10^3/uL (0.5-4.7); ABSOLUTE MONOCYTES (AUTO) 0.6 10^3/uL (0.1-1.4); ABSOLUTE NEUT (AUTO) 3.3 10^3/uL (1.7-8.2); BASOPHILS % (AUTO) 0.6 % (0-2); EOSINOPHILS % (AUTO) 6.1 % (0-6); HEMATOCRIT 27.4 % (37.9-51.0); HEMOGLOBIN 8.7 g/dL (13.5-17.0); LYMPHOCYTES % (AUTO) 21.9 % (13-45); MEAN CORPUSCULAR HEMOGLOBIN 27.7 pg (27.0-33.4); MEAN CORPUSCULAR HGB CONC 31.8 g/dL (32.0-36.0); MEAN CORPUSCULAR VOLUME 87 fl (80-97); MONOCYTES % (AUTO) 11.2 % (3-13); PLATELET COUNT 200 10^3/uL (150-450); RED BLOOD COUNT 3.14 10^6/uL (4.35-5.55); RED CELL DISTRIBUTION WIDTH 16.7 % (11.5-14.0); SEGMENTED NEUTROPHILS % (AUTO) 60.2 % (42-78); TOTAL CELLS COUNTED % (AUTO) 100 %; WHITE BLOOD COUNT 5.5 10^3/uL (4.0-10.5)
[2018-03-05 17:01] LABS: ALANINE AMINOTRANSFERASE 19 U/L (21-72); ALBUMIN 3.8 g/dL (3.5-5.0); ALKALINE PHOSPHATASE 72 U/L (38-126); ANION GAP 11 (5-19); ASPARTATE AMINO TRANSFERASE 31 U/L (17-59); BILIRUBIN,DIRECT 0.4 mg/dL (0.0-0.4); BILIRUBIN,TOTAL 0.6 mg/dL (0.2-1.3); BLOOD UREA NITROGEN 53 mg/dL (7-20); CALCIUM 8.7 mg/dL (8.4-10.2); CARBON DIOXIDE 29 mmol/L (22-30); CHLORIDE 100 mmol/L (98-107); CREATINE KINASE 86 U/L (55-170); GLUCOSE 119 mg/dL (75-110); LIPASE 142.4 U/L (23-300); POTASSIUM 4.5 mmol/L (3.6-5.0); SODIUM 139.6 mmol/L (137-145); TOTAL PROTEIN 7.9 g/dL (6.3-8.2)
[2018-03-05] MEDS ORDERED: VANCOMYCIN HCL INJ 1000 MG VIAL IV ONE (17:10)
[2018-03-05 17:11] LABS: TROPONIN I 0.019 ng/mL
[2018-03-05 17:12] LABS: INTERNATIONAL RATION (INR) 1.35; PROTHROMBIN TIME 17.4 SEC (11.4-15.4)
--- NOTE | 2018-03-05 17:14 | RADIOLOGY REPORT (SQ) ---
EXAM DESCRIPTION: CHEST SINGLE VIEW COMPLETED DATE/TIME: 03/05/2018 5:04 pm REASON FOR STUDY: hypoxia COMPARISON: 02/17/2018. NUMBER OF VIEWS: One view. TECHNIQUE: Single frontal radiographic view of the chest acquired. LIMITATIONS: None. FINDINGS: LUNGS AND PLEURA: Diffuse bilateral opacities. Left pleural effusion. MEDIASTINUM AND HILAR STRUCTURES: No masses or contour abnormality. HEART AND VASCULATURE: Cardiac enlargement. Vascular congestion. BONES: No acute findings. HARDWARE: Sternotomy wires, atrial clip, defibrillator. OTHER: No other significant finding. IMPRESSION: CONGESTIVE HEART FAILURE. LEFT PLEURAL EFFUSION. TECHNICAL DOCUMENTATION: JOB ID: [id number] [employer]- All Rights Reserved Reading location - IP/workstation name: [email or web address]
[2018-03-05 17:15] LABS: ARTERIAL BLOOD FIO2 60%
[2018-03-05 17:22] LABS: ARTERIAL BLOOD BASE EXCESS 3.8 mmol/L; ARTERIAL BLOOD H2CO3 1.61 mmol/L (1.05-1.35); ARTERIAL BLOOD HCO3 30.2 mmol/L (20-24); ARTERIAL BLOOD O2 SATURATION 98.8 % (94-98); ARTERIAL BLOOD PCO2 53.4 mmHg (35-45); ARTERIAL BLOOD PH 7.37 (7.35-7.45); ARTERIAL BLOOD PO2 145.7 mmHg (80-100); ARTERIAL BLOOD TOTAL CO2 31.9 mmol/L (23-27)
[2018-03-05] MEDS ORDERED: FUROSEMIDE INJ/PF 40 MG/4 ML SDV IV ONE (17:49)
--- NOTE | 2018-03-05 18:39 | ER Document Report ---
ED General - General Chief Complaint: Arrhythmia Stated Complaint: ABDOMINAL PAIN Time Seen by Provider: 03/05/18 16:37 Notes: Patient is a 72-year-old male with CHF, SUNNY, sick sinus syndrome, CAD that presents to the emergency department for chief complaint of shortness of breath. Patient states that he has had progressively worsening shortness of breath over the last several days, today got to the point where he called EMS, he was 77% on 4 L nasal cannula, by EMS, was placed on nonrebreather and brought to the emergency department. He recently had an exacerbation of his CHF , the end of January. He states he has noticed more swelling in his legs, and his abdomen. He is also noticed that he has had some redness over his abdomen as well, and has been having some abdominal pain. He denies having any nausea, vomiting, chest pain associated with the shortness of breath. Denies noting any fevers, chills or night sweats. Past Medical History: CHF, obstructive sleep apnea, CAD hypertension, hyperlipidemia, atrial fibrillation Past Surgical History: Pacemaker defibrillator placement, CABG in September 2017 Social History: Denies current tobacco use, admits occasional alcohol use, denies illicit drug use. Family History: Reviewed and noncontributory for presenting illness Allergies: Reviewed, see documented allergy list. REVIEW OF SYSTEMS: Unless otherwise stated in this report the patient's positive and negative responses for review of systems for constitutional, eyes, ENT, cardiovascular, respiratory, gastrointestinal, neurological, genitourinary, musculoskeletal, and integumentary systems and related systems to the presenting problem are either as stated in the HPI or were not pertinent or were negative for the symptoms and/or complaints related to the presenting medical problem. PHYSICAL EXAMINATION: Vital signs reviewed, nursing noted reviewed. GENERAL: Well-appearing, well-nourished and respiratory distress, shallow breathing, conversational dyspnea HEAD: Atraumatic, normocephalic. EYES: Eyes appear normal, extraocular movements intact, sclera anicteric, conjunctiva are normal. ENT: nares patent, oropharynx clear without exudates. Moist mucous membranes. NECK: Normal range of motion, supple without lymphadenopathy LUNGS: Diminished lung sounds throughout, crackles noted at the bases bilaterally, moderate respiratory distress HEART: Regular rate and rhythm without murmurs ABDOMEN: Soft, obese, mild tenderness to palpation, erythema noted over the inferior and right aspect of the abdomen, possible cellulitis normoactive bowel sounds. No rebound, guarding, or rigidity. No masses appreciated. EXTREMITIES: Nontender, good range of motion, 4+ pitting edema to the mid thighs bilaterally, chronic stasis changes noted as well NEUROLOGICAL: No focal neurological deficits. Moves all extremities spontaneously Motor and sensory grossly intact on exam. PSYCH: Moderate distress, answering questions appropriately SKIN: Warm, Dry, normal turgor, no rashes or lesions noted on exposed skin TRAVEL OUTSIDE OF THE [place] IN LAST 30 DAYS: No - Related Data Allergies/Adverse Reactions: No Known Allergies Allergy (Verified 02/17/18 14:22) Past Medical History - Social History Smoking Status: Former Smoker Family History: CAD, COPD, Hypertension - Past Medical History Cardiac Medical History: Reports: Hx Atrial Fibrillation, Hx Congestive Heart Failure, Hx Coronary Artery Disease, Hx Heart Attack, Hx Hypercholesterolemia, Hx Hypertension, Hx Pulmonary Embolism Pulmonary Medical History: Reports: Hx COPD Neurological Medical History: Denies: Hx Seizures Endocrine Medical History: Denies: Hx Diabetes Mellitus Type 2 - History of same , but only on medication for short time. Renal/ Medical History: Denies: Hx End Stage Renal Disease, Hx Peritoneal Dialysis GI Medical History: Denies: Hx Crohn's Disease, Hx Ulcerative Colitis Musculoskeletal Medical History: Reports Hx Arthritis Skin Medical History: Denies Hx Psoriasis Psychiatric Medical History: Reports: Hx Depression Traumatic Medical History: Denies: Hx Traumatic Brain Injury Past Surgical History: Reports: Hx Cardiac Catheterization, Hx Cardiac Surgery - Pacemaker-removed due to infection, Hx Coronary Artery Bypass Graft, Hx Coronary Stent, Hx Internal Defibrillator, Hx Pacemaker - Battery change out and then explantation., Hx Tonsillectomy - Immunizations Hx Diphtheria, Pertussis, Tetanus Vaccination: No - >5 YRS Hx Pneumococcal Vaccination: 03/27/11 Physical Exam - Vital signs Vitals: Resp BP Pulse Ox 18 131/67 H 97 03/05/18 16:40 03/05/18 16:40 03/05/18 16:40 Course - Re-evaluation Re-evalutation: Patient seen and examined vital signs reviewed. Laboratory data and imaging were ordered as appropriate for the patient's presenting symptoms and complaint, with consideration of any critical or life threatening conditions that may be associated with their obtained history and exam as noted above. Patient was immediately placed on BiPAP, given his respiratory distress, and hypoxia, patient was much improved after being placed on BiPAP Patient was treated with IV Lasix in addition to BiPAP Results were reviewed when available and demonstrated elevated BNP, chest x-ray demonstrated diffuse interstitial edema, possible right-sided infiltrate, and left-sided pleural effusion, concern for possible healthcare associated pneumonia given patient's recent hospitalization, patient was placed on IV antibiotics with vancomycin and cefepime, fluoroquinolones avoided to not prolong the patient's QTC him a cefepime also cover any possible cellulitis at the patient has on his abdomen. The patient was re-evaluated and was improved from a respiratory standpoint Evaluation was most consistent with acute exacerbation of CHF, with acute hypoxic respiratory failure requiring noninvasive positive pressure ventilation. Results were discussed with the patient at this point after careful consideration I feel that that patient should be admitted to the hospital. This was discussed with the patient that it is in the best interest for their care to be admitted for further evaluation and management. Patient agreed with this plan of care. A call was placed to the admitted physician, who wished for me to call the overnight hospitalist, for this admission, will wait until after 7 to make this phone call. [] who graciously accepted the patient onto their service. *Note is created using voice recognition software and may contain spelling, syntax or grammatical errors. 03/05/18 18:41 - Vital Signs Vital signs: Temp Pulse Resp BP Pulse Ox 20 128/67 H 100 03/05/18 20:20 03/05/18 19:01 03/05/18 20:20 - Laboratory Result Diagrams: 03/05/18 16:08 03/05/18 16:08 Laboratory results interpreted by me: 03/05/18 03/05/18 03/05/18 16:08 16:08 16:08 RBC 3.14 L Hgb 8.7 L Hct 27.4 L MCHC 31.8 L RDW 16.7 H Eosinophils % 6.1 H PT 17.4 H Carbonic Acid ABG pCO2 ABG pO2 ABG HCO3 ABG Total CO2 ABG O2 Saturation BUN 53 H Creatinine 2.00 H Est GFR ( Amer) 40 L Est GFR (Non-Af Amer) 33 L Glucose 119 H ALT 19 L NT-Pro-B Natriuret Pep 03/05/18 03/05/18 16:08 16:45 RBC Hgb Hct MCHC RDW Eosinophils % PT Carbonic Acid 1.61 H ABG pCO2 53.4 H ABG pO2 145.7 H ABG HCO3 30.2 H ABG Total CO2 31.9 H ABG O2 Saturation 98.8 H BUN Creatinine Est GFR ( Amer) Est GFR (Non-Af Amer) Glucose ALT NT-Pro-B Natriuret Pep 3800 H Critical Care Note - Critical Care Note Total time excluding time spent on procedures (mins): 50 Comments: Critical care time 50 exclusive from separate billable procedures for a patient requiring complex medical decision making, and high potential for clinical deterioration. Time spent obtaining history from patient or surrogate, discussions with consultants, development of treatment plan with patient or surrogate, evaluation of patient's response to treatment, examination of patient , ordering and performing treatments and interventions, ordering and review of laboratory studies, re-evaluation of patient's condition, ordering and review of radiographic studies and review of old charts Discharge - Discharge Clinical Impression: Acute respiratory failure with hypoxia, LEYLA (acute kidney injury) Acute exacerbation of CHF (congestive heart failure) Qualifiers: Heart failure type: combined systolic and diastolic Qualified Code(s): I50.43 - Acute on chronic combined systolic (congestive) and diastolic (congestive) heart failure Cellulitis Qualifiers: Site of cellulitis: trunk Site of cellulitis of trunk: abdominal wall Qualified Code(s): L03.311 - Cellulitis of abdominal wall Anemia Qualifiers: Anemia type: unspecified type Qualified Code(s): D64.9 - Anemia, unspecified Condition: Stable Disposition: ADMITTED INPATIENT Admitting Provider: Hospitalist - Dr. Gilbert Unit Admitted: [facility], [place]
[2018-03-05] MEDS ORDERED: PROMETHAZINE HCL 25 MG TABLET PO PRN (21:09)
[2018-03-05] MEDS ORDERED: PROMETHAZINE HCL INJ 25 MG/1 ML VIAL IV PRN (21:09)
[2018-03-05] MEDS ORDERED: IPRATROPIUM/ALBUTEROL 0.5-2.5 MG/3 ML AMPUL NEB PRN (21:09)
[2018-03-05] MEDS ORDERED: MAG HYDROX/AL HYDROX/SIMETH SUSP 30 ML UDCUP PO PRN (21:09)
[2018-03-05] MEDS ORDERED: ACETAMINOPHEN 325 MG TABLET PO PRN (21:09)
[2018-03-05] MEDS ORDERED: CEFEPIME 1 GM/D5W RTU 1 GM/50 ML RTUPB IV SCH (22:00)
[2018-03-05] MEDS ORDERED: FUROSEMIDE INJ/PF 20 MG/2 ML SDV IV ONE (22:15)
--- NOTE | 2018-03-05 22:48 | EKG REPORT ---
SEVERITY:- ABNORMAL ECG - DUAL-PACEMAKER W/ A-NONCAPT DUE TO AFIB/FLUT RIGHT BUNDLE BRANCH BLOCK : Confirmed by: Negro iPsano MD 05-Mar-2018 22:47:48
--- NOTE | 2018-03-05 22:48 | EKG REPORT ---
SEVERITY:- ABNORMAL ECG - ATRIAL-VENTRICULAR DUAL-PACED COMPLEXES : Confirmed by: Negro Pisano MD 05-Mar-2018 22:47:59
--- NOTE | 2018-03-06 00:09 | PDOC H&P ---
History of Present Illness Admission Date/PCP: 03/05/18 19:42 MAURICE ORTIZ DO Patient complains of: sob History of Present Illness: DANIEL OLIVA is a 72 year old male with CHF, SUNNY, sick sinus syndrome, CAD that presents to the emergency department for chief complaint of shortness of breath. Patient states that he has had progressively worsening shortness of breath over the last several days, today got to the point where he called EMS, he was 77% on 4 L nasal cannula, by EMS, was placed on nonrebreather and brought to the emergency department. Denies cough, phlegm, wheezing, has been orthopneic. He recently had an exacerbation of his CHF, the end of January. He states he has noticed more swelling in his legs, and his abdomen, states has been taking his Lasix at home as indicated. He is also noticed that he has had some redness over his abdomen as well, and has been having some abdominal pain. He denies having any nausea, vomiting, chest pain associated with the shortness of breath. Denies noting any fevers, chills or night sweats. In the emergency department was initiated on BiPAP given 40 mg of IV Lasix. He is on chronic anticoagulation with apixaban. Given IV cefepime and IV vancomycin, for his lower abdominal redness, felt initially cellulitis. Chest x-ray shows bilateral pulmonary edema with left pleural effusion which is new. BNP 3800. Past Medical History Cardiac Medical History: Reports: Atrial Fibrillation, Congestive Heart Failure , Coronary Artery Disease, Myocardial Infarction, Hyperlipidema, Hypertension, Pulmonary Embolism Pulmonary Medical History: Reports: Chronic Obstructive Pulmonary Disease (COPD) Neurological Medical History: Denies: Seizures Endocrine Medical History: Denies: Diabetes Mellitus Type 2 - History of same, but only on medication for short time. Renal/ Medical History: Denies: End Stage Renal Disease GI Medical History: Denies: Crohn's Disease, Ulcerative Colitis Musculoskeltal Medical History: Reports: Arthritis Skin Medical History: Denies: Psoriasis Psychiatric Medical History: Reports: Depression Traumatic Medical History: Denies: Traumatic Brain Injury Hematology: Denies: Hemophilia, Sickle Cell Disease Past Surgical History Past Surgical History: Reports: Cardiac Catheterization, Coronary Artery Bypass Graft, Coronary Stent, Internal Defibrillator, Pacemaker - Battery change out and then explantation., Tonsillectomy Social History Smoking Status: Former Smoker Frequency of Alcohol Use: Rare Hx Recreational Drug Use: No Drugs: None Hx Prescription Drug Abuse: No Family History Family History: CAD, COPD, Hypertension Parental Family History Reviewed: Yes - As above Children Family History Reviewed: NA Sibling(s) Family History Reviewed.: NA Medication/Allergy Home Medications: Amiodarone HCl [Cordarone 200 mg Tablet] 200 mg PO DAILY 02/17/18 Apixaban [Eliquis] 5 mg PO Q12 02/17/18 Atorvastatin Calcium [Lipitor 40 mg Tablet] 40 mg PO DAILY 02/17/18 Gabapentin [Neurontin 100 mg Capsule] 100 mg PO Q12HP PRN 02/17/18 Oxycodone HCl/Acetaminophen [Endocet 10-325 mg Tablet] 1 tab PO Q6HP PRN Sertraline HCl [Zoloft 50 mg Tablet] 50 mg PO DAILY 02/17/18 Simethicone [Mylicon 80 mg Chewable Tablet] 160 mg PO Q6HP PRN 02/17/18 Furosemide [Lasix 40 mg Tablet] 40 mg PO BID #60 tablet 02/20/18 Allergies/Adverse Reactions: No Known Allergies Allergy (Verified 02/17/18 14:22) Review of Systems Review of Systems: As outlined in the HPI, others negative Physical Exam Vital Signs: Temp Pulse Resp BP Pulse Ox 98.4 F 60 20 135/69 H 94 03/05/18 23:13 03/05/18 23:13 03/05/18 23:13 03/05/18 23:13 03/05/18 23:13 Intake & Output 03/04/18 03/05/18 03/06/18 06:59 06:59 06:59 Weight 147.5 kg Additional comments: General appearance: Well-developed, morbidly obese, alert and cooperative, and appears to be in no acute distress Head: Normocephalic Eyes: PEERL, EOMI, vision is grossly intact. Ears: External auditory canal and tympanic membranes clear, hearing grossly intact. Nose: No nasal discharge. Throat: Oral cavity and pharynx normal. No inflammation, swelling, exudate or lesions. Neck: Neck supple, nontender without lymphadenopathy, masses or thyromegaly. Cardiac: Normal S1 and S2. No S3, S4 or murmurs. Rhythm is regular. There is no cyanosis or pallor. Lungs: Very decreased bilateral breath sounds with moderate to severe diffused rales, minimal rhonchi, low wheezing . Not using accessory muscles. BiPAP, cannot speak in full sentences. Abdomen: Positive bowel sounds. Indurated in the infraumbilical area with erythema, no warmth or tenderness to palpation. no guarding or rebound. No masses. Difficult to appreciate hepatosplenomegaly as per his body habitus Extremities: No significant deformity or joint abnormality. 3+ LE edema extending to the scrotal area , lower extremities erythema peripheral pulses intact. Neurological: Cranial nerves II through XII grossly intact. Strength and sensation symmetric and intact throughout. Reflexes 2+ throughout. Skin: Skin pale, normal texture and turgor with no lesions or eruptions, warm and dry. Psychiatric: The mental examination revealed the patient was oriented to person , place, and time. The patient was able to demonstrate good judgment on recent , without hallucinations, abnormal affect or abnormal behaviors. Results Laboratory Results: 03/05/18 20:58 Troponin I 0.022 03/05/18 03/05/18 03/05/18 16:08 16:08 16:08 WBC 5.5 RBC 3.14 L Hgb 8.7 L Hct 27.4 L MCV 87 MCH 27.7 MCHC 31.8 L RDW 16.7 H Plt Count 200 Seg Neutrophils % 60.2 Lymphocytes % 21.9 Monocytes % 11.2 Eosinophils % 6.1 H Basophils % 0.6 Absolute Neutrophils 3.3 Absolute Lymphocytes 1.2 Absolute Monocytes 0.6 Absolute Eosinophils 0.3 Absolute Basophils 0.0 PT 17.4 H INR 1.35 Carbonic Acid HCO3/H2CO3 Ratio ABG pH ABG pCO2 ABG pO2 ABG HCO3 ABG Total CO2 ABG O2 Saturation ABG Base Excess FiO2 Sodium 139.6 Potassium 4.5 Chloride 100 Carbon Dioxide 29 Anion Gap 11 BUN 53 H Creatinine 2.00 H Est GFR ( Amer) 40 L Est GFR (Non-Af Amer) 33 L Glucose 119 H Calcium 8.7 Total Bilirubin 0.6 Direct Bilirubin 0.4 AST 31 ALT 19 L Creatine Kinase 86 Troponin I NT-Pro-B Natriuret Pep Total Protein 7.9 Albumin 3.8 Lipase 142.4 03/05/18 03/05/18 03/05/18 16:08 16:45 20:58 WBC RBC Hgb Hct MCV MCH MCHC RDW Plt Count Seg Neutrophils % Lymphocytes % Monocytes % Eosinophils % Basophils % Absolute Neutrophils Absolute Lymphocytes Absolute Monocytes Absolute Eosinophils Absolute Basophils PT INR Carbonic Acid 1.61 H HCO3/H2CO3 Ratio 18:1 ABG pH 7.37 ABG pCO2 53.4 H ABG pO2 145.7 H ABG HCO3 30.2 H ABG Total CO2 31.9 H ABG O2 Saturation 98.8 H ABG Base Excess 3.8 FiO2 60% Sodium Potassium Chloride Carbon Dioxide Anion Gap BUN Creatinine Est GFR ( Amer) Est GFR (Non-Af Amer) Glucose Calcium Total Bilirubin Direct Bilirubin AST ALT Creatine Kinase Troponin I 0.019 0.022 NT-Pro-B Natriuret Pep 3800 H Total Protein Albumin Lipase Impressions: Chest X-Ray 03/05/18 16:38 IMPRESSION: CONGESTIVE HEART FAILURE. LEFT PLEURAL EFFUSION. Assessment & Plan - Diagnosis (1) Acute respiratory failure with hypoxia Is this a current diagnosis for this admission?: Yes Plan: Patient with acute respiratory failure in the setting of chronic hypercapnia, secondary likely to CHF exacerbation and in minor percentage COPD exacerbation, currently on BiPAP. VBG 7.37/53.4/145 hco3 30. Baseline CO2 in the 50s. (2) Acute on chronic combined systolic and diastolic CHF (congestive heart failure) Is this a current diagnosis for this admission?: Yes Plan: Patient had multiple admissions for CHF exacerbation, acute on chronic systolic and diastolic CHF. Chest x-ray shows bilateral pulmonary edema with left pleural effusion. 40 mg of IV Lasix given, I will go ahead and if him 20 more I have elected to complete 60 mg IV tonight followed by 40 mg IV every 12 hours. Telemetry monitoring. Cardiac enzymes 3. Tapia catheter with a strict input and output. Daily weight. In the ED felt that his erythema on the lower abdomen and legs were probably cellulitis, after my physical exam it seems to be more secondary to his severe edema, patient already had 1 dose of IV vancomycin and IV cefepime, I will hold on on antibiotics for now, has to be reassessed tomorrow. Cardiology evaluation. BNP 3800. Continue BiPAP. EKG paced rhythm. Fluid restriction 1500 cc per day. During his last admission he was discharged with Lasix 20 mg p.o. daily, probably very low for the severity of his fluid retention. (3) Acute renal failure superimposed on stage 3 chronic kidney disease Is this a current diagnosis for this admission?: Yes Plan: BUN 53 and creatinine 2, is a little bit worse than his baseline CKD stage III, probably cardiorenal. Reassess renal panel in the morning. (4) Chronic atrial fibrillation Is this a current diagnosis for this admission?: Yes Plan: EKG shows paced rhythm. Continue with apixaban amiodarone. Also has history of PE. Has a defibrillator (5) CAD (coronary artery disease) Is this a current diagnosis for this admission?: Yes Plan: Continue aspirin (6) Hypertension Qualifiers: Hypertension type: essential hypertension Qualified Code(s): I10 - Essential (primary) hypertension Is this a current diagnosis for this admission?: Yes Plan: Continue home antihypertensive medications. - Time Time Spent: 30 to 50 Minutes - Inpatient Certification Based on my medical assessment, after consideration of the patient's comorbidities, presenting symptoms, or acuity I expect that the services needed warrant INPATIENT care.: Yes I certify that my determination is in accordance with my understanding of Medicare's requirements for reasonable and necessary INPATIENT services [42 CFR 412.3e].: Yes
[2018-03-06] MEDS: MORPHINE SULFATE 10 MG/ML INJ IV PRN ×5 (00:31→18:58)
[2018-03-06] MEDS ORDERED: FUROSEMIDE INJ/PF 20 MG/2 ML SDV ONE (02:05)
[2018-03-06 02:17] LABS: APPEARANCE,URINE CLEAR; BILIRUBIN,URINE NEGATIVE (NEGATIVE); COLOR,URINE YELLOW; GLUCOSE, URINE NEGATIVE (NEGATIVE); KETONES,URINE NEGATIVE (NEGATIVE); LEUKOCYTE ESTERASE,URINE NEGATIVE (NEGATIVE); NITRITE,URINE NEGATIVE (NEGATIVE); PROTEIN,URINE NEGATIVE (NEGATIVE); URINE SPECIFIC GRAVITY 1.009; UROBILINOGEN,URINE NEGATIVE mg/dL (<2.0)
[2018-03-06 02:42] LABS: URINE AMPHETAMINES SCREEN NEGATIVE; URINE BARBITURATES SCREEN NEGATIVE; URINE BENZODIAZEPINES SCREEN NEGATIVE; URINE COCAINE SCREEN NEGATIVE; URINE MARIJUANA (THC) SCREEN NEGATIVE; URINE METHADONE SCREEN NEGATIVE; URINE PHENCYCLIDINE SCREEN NEGATIVE
[2018-03-06 03:24] LABS: ABSOLUTE BASOPHILS # (AUTO) 0.1 10^3/uL (0.0-0.2); ABSOLUTE EOSINOPHILS # (AUTO) 0.4 10^3/uL (0.0-0.6); ABSOLUTE LYMPHOCYTES (AUTO) 1.2 10^3/uL (0.5-4.7); ABSOLUTE MONOCYTES (AUTO) 0.8 10^3/uL (0.1-1.4); ABSOLUTE NEUT (AUTO) 3.8 10^3/uL (1.7-8.2); HEMATOCRIT 26.8 % (37.9-51.0); HEMOGLOBIN 8.7 g/dL (13.5-17.0); LYMPHOCYTES % (AUTO) 18.8 % (13-45); MEAN CORPUSCULAR HEMOGLOBIN 28.4 pg (27.0-33.4); MEAN CORPUSCULAR HGB CONC 32.4 g/dL (32.0-36.0); MEAN CORPUSCULAR VOLUME 88 fl (80-97); MONOCYTES % (AUTO) 12.1 % (3-13); PLATELET COUNT 180 10^3/uL (150-450); RED BLOOD COUNT 3.06 10^6/uL (4.35-5.55); RED CELL DISTRIBUTION WIDTH 16.6 % (11.5-14.0); SEGMENTED NEUTROPHILS % (AUTO) 61.1 % (42-78); TOTAL CELLS COUNTED % (AUTO) 100 %; WHITE BLOOD COUNT 6.2 10^3/uL (4.0-10.5)
[2018-03-06 03:37] LABS: ALANINE AMINOTRANSFERASE 16 U/L (21-72); ALBUMIN 3.5 g/dL (3.5-5.0); ALKALINE PHOSPHATASE 77 U/L (38-126); ANION GAP 10 (5-19); ASPARTATE AMINO TRANSFERASE 23 U/L (17-59); BILIRUBIN,DIRECT 0.4 mg/dL (0.0-0.4); BILIRUBIN,TOTAL 0.6 mg/dL (0.2-1.3); BLOOD UREA NITROGEN 49 mg/dL (7-20); CALCIUM 8.5 mg/dL (8.4-10.2); CARBON DIOXIDE 32 mmol/L (22-30); CHLORIDE 100 mmol/L (98-107); GLUCOSE 105 mg/dL (75-110); POTASSIUM 4.4 mmol/L (3.6-5.0); SODIUM 141.5 mmol/L (137-145); TOTAL PROTEIN 7.3 g/dL (6.3-8.2)
[2018-03-06 04:17] LABS: PHOSPHORUS 4.3 mg/dL (2.5-4.5)
[2018-03-06 06:34] LABS: ARTERIAL BLOOD BASE EXCESS 3.6 mmol/L; ARTERIAL BLOOD H2CO3 1.77 mmol/L (1.05-1.35); ARTERIAL BLOOD HCO3 30.4 mmol/L (20-24); ARTERIAL BLOOD O2 SATURATION 73.5 % (94-98); ARTERIAL BLOOD PCO2 58.8 mmHg (35-45); ARTERIAL BLOOD PH 7.33 (7.35-7.45); ARTERIAL BLOOD PO2 42.4 mmHg (80-100); ARTERIAL BLOOD TOTAL CO2 32.2 mmol/L (23-27)
[2018-03-06 06:36] LABS: ARTERIAL BLOOD FIO2 30%
[2018-03-06] MEDS: FUROSEMIDE INJ/PF 40 MG/4 ML SDV IV SCH ×2 (10:02→21:47)
[2018-03-06] MEDS ORDERED: GABAPENTIN 100 MG CAPSULE PO PRN (14:22)
--- NOTE | 2018-03-06 14:25 | PDOC PROGRESS REPORT ---
Subjective Progress Note for:: 03/06/18 Subjective:: DANIEL OLIVA is a 72 year old male with CHF, SUNNY, sick sinus syndrome, CAD. Presented to ED c/o shortness of breath. He states that he has had progressively worsening shortness of breath over the last several days. He was saturating 77% on 4 L nasal cannula. Placed on nonrebreather and brought to the emergency department. Reason For Visit: ACUTE HYPOXIC RESPIRATORY FAILURE, CHF Physical Exam Vital Signs: Temp Pulse Resp BP Pulse Ox 98.3 F 182 H 20 119/59 L 92 03/06/18 11:07 03/06/18 11:07 03/06/18 11:07 03/06/18 11:07 03/06/18 11:07 Intake & Output 03/05/18 03/06/18 03/07/18 06:59 06:59 06:59 Intake Total 275 Output Total 300 525 Balance -300 -250 Weight 147.7 kg General appearance: PRESENT: no acute distress, morbidly obese, well-developed, well-nourished Head exam: PRESENT: atraumatic, normocephalic Eye exam: PRESENT: conjunctiva pink, EOMI, PERRLA. ABSENT: scleral icterus Ear exam: PRESENT: normal external ear exam Mouth exam: PRESENT: moist, tongue midline Neck exam: ABSENT: carotid bruit, JVD, lymphadenopathy, thyromegaly Respiratory exam: PRESENT: prolonged expiratory phas, other - Diffuse crackles. ABSENT: rales, rhonchi, wheezes Cardiovascular exam: PRESENT: RRR. ABSENT: diastolic murmur, rubs, systolic murmur Pulses: PRESENT: normal dorsalis pedis pul Vascular exam: PRESENT: normal capillary refill GI/Abdominal exam: PRESENT: normal bowel sounds, soft. ABSENT: distended, guarding, mass, organolmegaly, rebound, tenderness Rectal exam: PRESENT: deferred Extremities exam: PRESENT: full ROM. ABSENT: calf tenderness, clubbing, pedal edema Neurological exam: PRESENT: alert, awake, oriented to person, oriented to place , oriented to time, oriented to situation, CN II-XII grossly intact. ABSENT: motor sensory deficit Psychiatric exam: PRESENT: appropriate affect, normal mood. ABSENT: homicidal ideation, suicidal ideation Skin exam: PRESENT: dry, intact, warm. ABSENT: cyanosis, rash Results Laboratory Results: 03/06/18 03:15 03/06/18 03:15 03/06/18 03/06/18 03/06/18 01:00 03:15 03:15 WBC 6.2 RBC 3.06 L Hgb 8.7 L Hct 26.8 L MCV 88 MCH 28.4 MCHC 32.4 RDW 16.6 H Plt Count 180 Seg Neutrophils % 61.1 Lymphocytes % 18.8 Monocytes % 12.1 Eosinophils % 7.0 H Basophils % 1.0 Absolute Neutrophils 3.8 Absolute Lymphocytes 1.2 Absolute Monocytes 0.8 Absolute Eosinophils 0.4 Absolute Basophils 0.1 Carbonic Acid HCO3/H2CO3 Ratio ABG pH ABG pCO2 ABG pO2 ABG HCO3 ABG O2 Saturation ABG Base Excess FiO2 Sodium 141.5 Potassium 4.4 Chloride 100 Carbon Dioxide 32 H Anion Gap 10 BUN 49 H Creatinine 1.99 H Est GFR ( Amer) 40 L Est GFR (Non-Af Amer) 33 L Glucose 105 Calcium 8.5 Phosphorus Magnesium Total Bilirubin 0.6 AST 23 ALT 16 L Alkaline Phosphatase 77 Total Protein 7.3 Albumin 3.5 Urine Color YELLOW Urine Appearance CLEAR Urine pH 5.0 Ur Specific [place] 1.009 Urine Protein NEGATIVE Urine Glucose (UA) NEGATIVE Urine Ketones NEGATIVE Urine Blood SMALL H Urine Nitrite NEGATIVE Ur Leukocyte Esterase NEGATIVE Urine WBC (Auto) 0 Urine RBC (Auto) 1 03/06/18 03/06/18 03:15 06:26 WBC RBC Hgb Hct MCV MCH MCHC RDW Plt Count Seg Neutrophils % Lymphocytes % Monocytes % Eosinophils % Basophils % Absolute Neutrophils Absolute Lymphocytes Absolute Monocytes Absolute Eosinophils Absolute Basophils Carbonic Acid 1.77 H HCO3/H2CO3 Ratio 17:1 ABG pH 7.33 L ABG pCO2 58.8 H ABG pO2 42.4 L ABG HCO3 30.4 H ABG O2 Saturation 73.5 L ABG Base Excess 3.6 FiO2 30% Sodium Potassium Chloride Carbon Dioxide Anion Gap BUN Creatinine Est GFR ( Amer) Est GFR (Non-Af Amer) Glucose Calcium Phosphorus 4.3 Magnesium 2.4 H Total Bilirubin AST ALT Alkaline Phosphatase Total Protein Albumin Urine Color Urine Appearance Urine pH Ur Specific [place] Urine Protein Urine Glucose (UA) Urine Ketones Urine Blood Urine Nitrite Ur Leukocyte Esterase Urine WBC (Auto) Urine RBC (Auto) 03/05/18 03/06/18 03/06/18 20:58 03:15 08:51 Troponin I 0.022 0.023 0.019 Impressions: Chest X-Ray 03/05/18 16:38 IMPRESSION: CONGESTIVE HEART FAILURE. LEFT PLEURAL EFFUSION. Assessment & Plan - Diagnosis (1) Acute respiratory failure with hypoxia and hypercarbia Is this a current diagnosis for this admission?: Yes Plan: Likely due to CHF exacerbation/COPD exacerbation based on the presence of hypercarbia. BiPAP, nebs, steroids. ABG tomorrow. (2) Acute renal failure superimposed on stage 3 chronic kidney disease Is this a current diagnosis for this admission?: Yes Plan: Likely secondary to long-term hypertension. Monitor volume status. Avoid nephrotoxic agents. BMP tomorrow (3) Chronic atrial fibrillation Is this a current diagnosis for this admission?: No Plan: Paced rhythm (dual-chamber pacemaker in place.) Continue telemetry, aspirin, amiodarone, apixaban,. (4) Coronary artery disease Qualifiers: Coronary Disease-Associated Artery/Lesion type: [place] artery Is this a current diagnosis for this admission?: Yes Plan: History of CABG, dual chamber pacemaker placement. Continue aspirin. I reviewed his home medication with him and his son apparently he is not on beta- tam or KELSEY. Son could not give me a reason why. Patient may benefit from beta blockers and KELSEY as he has significant past medical history of CAD. Status post CABG (5) Hypertension Qualifiers: Hypertension type: essential hypertension Qualified Code(s): I10 - Essential (primary) hypertension Is this a current diagnosis for this admission?: Yes Plan: Continue Lasix. Monitor volume status and vitals. (6) Morbid obesity with BMI of 40.0-44.9, adult Is this a current diagnosis for this admission?: Yes Plan: Diet and lifestyle modification. (7) Depression Is this a current diagnosis for this admission?: No Plan: Restart SSRIs. (8) CHF exacerbation Qualifiers: Heart failure type: combined systolic and diastolic Qualified Code(s): I50.43 - Acute on chronic combined systolic (congestive) and diastolic ( congestive) heart failure Is this a current diagnosis for this admission?: Yes Plan: History of CAD, echo a few months ago shows normal ejection fraction, echo from 2010 shows ejection fraction of less than 45%. Patient has a dual-chamber pacemaker placement. Son does not know the reason why his father had pacemaker. Admitted multiple times for CHF exacerbation. Continue IV Lasix monitor volume status instructed in all. Fluid restriction. Cardiac diet. (9) Anemia Qualifiers: Anemia type: due to chronic kidney disease Chronic kidney disease stage: stage 3 (moderate) Qualified Code(s): N18.3 - Chronic kidney disease, stage 3 (moderate); D63.1 - Anemia in chronic kidney disease; D63.1 - Anemia in chronic kidney disease Is this a current diagnosis for this admission?: Yes Plan: Likely due to underlying CKD. Monitor H&H. He is if less than 7 symptomatic or actively bleeding. Patient denies any hematemesis hemoptysis hematochezia or melena. Patient had normal hemoglobin August 2017. Which makes anemia of chronic disease less likely. Guaiac to rule out any occult GI bleed. If possible consult GI/surgery for possible endoscopy and colonoscopy. Avoid NSAIDs.
[2018-03-06] MEDS: APIXABAN 5 MG TABLET PO SCH (21:46)
[2018-03-06] MEDS: OXYCODONE HCL IR 5 MG TABLET PO PRN (21:46)
[2018-03-06] MEDS ORDERED: FUROSEMIDE INJ/PF 100 MG/10 ML SDV IV SCH (22:00)
[2018-03-07] MEDS: MORPHINE SULFATE 10 MG/ML INJ IV PRN ×3 (04:00→17:52)
[2018-03-07 05:05] LABS: ABSOLUTE EOSINOPHILS # (AUTO) 0.4 10^3/uL (0.0-0.6); ABSOLUTE LYMPHOCYTES (AUTO) 1.3 10^3/uL (0.5-4.7); ABSOLUTE MONOCYTES (AUTO) 0.7 10^3/uL (0.1-1.4); BASOPHILS % (AUTO) 0.6 % (0-2); HEMATOCRIT 27.5 % (37.9-51.0); HEMOGLOBIN 8.9 g/dL (13.5-17.0); LYMPHOCYTES % (AUTO) 20.5 % (13-45); MEAN CORPUSCULAR HEMOGLOBIN 28.1 pg (27.0-33.4); MEAN CORPUSCULAR HGB CONC 32.5 g/dL (32.0-36.0); MEAN CORPUSCULAR VOLUME 86 fl (80-97); MONOCYTES % (AUTO) 10.6 % (3-13); PLATELET COUNT 203 10^3/uL (150-450); RED BLOOD COUNT 3.18 10^6/uL (4.35-5.55); RED CELL DISTRIBUTION WIDTH 16.5 % (11.5-14.0); SEGMENTED NEUTROPHILS % (AUTO) 62.3 % (42-78); TOTAL CELLS COUNTED % (AUTO) 100 %; WHITE BLOOD COUNT 6.4 10^3/uL (4.0-10.5)
[2018-03-07] MEDS: OXYCODONE-ACETAMINOPHEN 5-325 MG TABLET PO PRN ×3 (05:27→20:11)
[2018-03-07] MEDS: OXYCODONE HCL IR 5 MG TABLET PO PRN ×3 (05:28→20:13)
[2018-03-07 05:29] LABS: ALANINE AMINOTRANSFERASE 12 U/L (21-72); ALBUMIN 3.6 g/dL (3.5-5.0); ALKALINE PHOSPHATASE 79 U/L (38-126); ANION GAP 9 (5-19); ASPARTATE AMINO TRANSFERASE 26 U/L (17-59); BILIRUBIN,DIRECT 0.3 mg/dL (0.0-0.4); BILIRUBIN,TOTAL 0.6 mg/dL (0.2-1.3); BLOOD UREA NITROGEN 53 mg/dL (7-20); CALCIUM 8.7 mg/dL (8.4-10.2); CARBON DIOXIDE 34 mmol/L (22-30); CHLORIDE 98 mmol/L (98-107); GLUCOSE 113 mg/dL (75-110); POTASSIUM 5.2 mmol/L (3.6-5.0); SODIUM 140.9 mmol/L (137-145); TOTAL PROTEIN 7.6 g/dL (6.3-8.2)
[2018-03-07] MEDS ORDERED: AMIODARONE HCL 200 MG TABLET PO SCH (10:00)
[2018-03-07] MEDS: FUROSEMIDE INJ/PF 40 MG/4 ML SDV IV SCH ×2 (10:05→22:16)
[2018-03-07] MEDS: ATORVASTATIN CALCIUM 40 MG TABLET PO SCH (10:06)
[2018-03-07] MEDS: APIXABAN 5 MG TABLET PO SCH ×2 (10:06→22:18)
[2018-03-07] MEDS: ASPIRIN 81 MG TABLET, CHEWABLE PO SCH (10:07)
[2018-03-07] MEDS: SERTRALINE HCL 50 MG TABLET PO SCH (10:07)
--- NOTE | 2018-03-07 18:00 | PDOC PROGRESS REPORT ---
Subjective Progress Note for:: 03/07/18 Subjective:: Mr. Ness is a 72 y old male with CHF, SUNNY, sick sinus syndrome, CAD and multiple prior admission for recurrent CHF exacerbations who was admitted for another CHF exacerbation. He initially presented with worsening SOB, increasing pedal edema and scrotal swelling. Assumed care today. Patient syas his breahting has improved today buthe is not at baseline yet. He was initially on nonrebreather when he came in but is currently saturating well on 2 lpm which is his home O2 requirement. Denies chest pain, cough, fever or chills. Reason For Visit: ACUTE HYPOXIC RESPIRATORY FAILURE, CHF Physical Exam Vital Signs: Temp Pulse Resp BP Pulse Ox 97.5 F 59 L 22 H 132/53 H 100 03/07/18 15:55 03/07/18 15:55 03/07/18 15:55 03/07/18 15:55 03/07/18 15:55 Intake & Output 03/06/18 03/07/18 03/08/18 06:59 06:59 06:59 Intake Total 800 222 Output Total 300 2375 1100 Balance -300 -1575 -878 Weight 325 lb 9.964 oz 325 lb 9.964 oz General appearance: PRESENT: no acute distress, well-developed, well-nourished Head exam: PRESENT: atraumatic, normocephalic Eye exam: PRESENT: conjunctiva pink, EOMI, PERRLA. ABSENT: scleral icterus Ear exam: PRESENT: normal external ear exam Mouth exam: PRESENT: moist, tongue midline Neck exam: ABSENT: carotid bruit, JVD, lymphadenopathy, thyromegaly Respiratory exam: PRESENT: rales - rales on the bases, no whezing Cardiovascular exam: PRESENT: RRR, systolic murmur Pulses: PRESENT: normal dorsalis pedis pul Rectal exam: PRESENT: deferred Extremities exam: PRESENT: other - +3 pitting edema Neurological exam: PRESENT: alert, awake, oriented to person, oriented to place , oriented to time, oriented to situation, CN II-XII grossly intact. ABSENT: motor sensory deficit Results Laboratory Results: 03/07/18 04:24 03/07/18 04:24 03/06/18 03/07/18 03/07/18 19:50 04:24 04:24 WBC 6.4 RBC 3.18 L Hgb 8.9 L Hct 27.5 L MCV 86 MCH 28.1 MCHC 32.5 RDW 16.5 H Plt Count 203 Seg Neutrophils % 62.3 Lymphocytes % 20.5 Monocytes % 10.6 Eosinophils % 6.0 Basophils % 0.6 Absolute Neutrophils 4.0 Absolute Lymphocytes 1.3 Absolute Monocytes 0.7 Absolute Eosinophils 0.4 Absolute Basophils 0.0 Sodium 140.9 Potassium 5.2 H Chloride 98 Carbon Dioxide 34 H Anion Gap 9 BUN 53 H Creatinine 2.04 H Est GFR ( Amer) 39 L Est GFR (Non-Af Amer) 32 L Glucose 113 H Calcium 8.7 Total Bilirubin 0.6 AST 26 ALT 12 L Alkaline Phosphatase 79 Total Protein 7.6 Albumin 3.6 Stool Occult Blood NEGATIVE 03/05/18 03/06/18 03/06/18 20:58 03:15 08:51 Troponin I 0.022 0.023 0.019 Impressions: Chest X-Ray 03/05/18 16:38 IMPRESSION: CONGESTIVE HEART FAILURE. LEFT PLEURAL EFFUSION. Assessment & Plan - Diagnosis (1) CHF exacerbation Qualifiers: Heart failure type: combined systolic and diastolic Qualified Code(s): I50.43 - Acute on chronic combined systolic (congestive) and diastolic ( congestive) heart failure Is this a current diagnosis for this admission?: Yes Plan: Acute on chronic heart failure exacerbation with preserved/recovered ejection fraction. Patient's recent echo did show an EF of 65% in November 2017. He has a previous EF of 40% in 2010. Patient is currently being diuresed with 40 mg of IV Lasix q12. He says his breathing is much better today. Add Lopressor and losartan today. Cardiology consulted. Questionable COPD. Will order for a bedside PFT tomorrow. (2) Atrial fibrillation Qualifiers: Atrial fibrillation type: paroxysmal Qualified Code(s): I48.0 - Paroxysmal atrial fibrillation Is this a current diagnosis for this admission?: Yes Plan: Continue Eliquis. Patient takes amiodarone at home. Will add Lopressor today. Patient does have occasional low normal heart rate. Will hold off on amiodarone for today and see how his heart rate response to the beta tam. - Time Time Spent with patient: 25-34 minutes
--- NOTE | 2018-03-07 20:18 | PDOC CONSULTATION ---
Consultation Consult Date: 03/07/18 Attending physician:: SHIRAZ QUINONES Consult reason:: CHF History of Present Illness Admission Date/PCP: 03/05/18 19:42 MAURICE ORTIZ DO Patient complains of: Dyspnea and pedal edema History of Present Illness: DANIEL OLIVA is a 72 year old male with CHF, SUNNY, sick sinus syndrome, CAD that presents to the emergency department for chief complaint of shortness of breath. Patient states that he has had progressively worsening shortness of breath over the last several days, today got to the point where he called EMS, he was 77% on 4 L nasal cannula, by EMS, was placed on nonrebreather and brought to the emergency department. Denies cough, phlegm, wheezing, has been orthopneic. He recently had an exacerbation of his CHF, the end of January. He states he has noticed more swelling in his legs, and his abdomen, states has been taking his Lasix at home as indicated. He is also noticed that he has had some redness over his abdomen as well, and has been having some abdominal pain. He denies having any nausea, vomiting, chest pain associated with the shortness of breath. Denies noting any fevers, chills or night sweats. In the emergency department was initiated on BiPAP given 40 mg of IV Lasix. He is on chronic anticoagulation with apixaban. Given IV cefepime and IV vancomycin, for his lower abdominal redness, felt initially cellulitis. Chest x-ray shows bilateral pulmonary edema with left pleural effusion which is new. BNP 3800. This history obtained by the hospitalist was reviewed and confirmed with the patient and his son. Patient did not add much to the history. Past Medical History Cardiac Medical History: Reports: Atrial Fibrillation, Congestive Heart Failure , Coronary Artery Disease, Myocardial Infarction, Hyperlipidema, Hypertension, Pulmonary Embolism Pulmonary Medical History: Reports: Chronic Obstructive Pulmonary Disease (COPD) Neurological Medical History: Denies: Seizures Endocrine Medical History: Denies: Diabetes Mellitus Type 2 - History of same, but only on medication for short time. Renal/ Medical History: Denies: End Stage Renal Disease GI Medical History: Denies: Crohn's Disease, Ulcerative Colitis Musculoskeltal Medical History: Reports: Arthritis Skin Medical History: Denies: Psoriasis Psychiatric Medical History: Reports: Depression Traumatic Medical History: Denies: Traumatic Brain Injury Hematology: Denies: Hemophilia, Sickle Cell Disease Past Surgical History Past Surgical History: Reports: Cardiac Catheterization, Coronary Artery Bypass Graft, Coronary Stent, Internal Defibrillator, Pacemaker - Battery change out and then explantation., Tonsillectomy Social History Information Source: Patient Smoking Status: Former Smoker Last Time Smoked: 12 years ago Frequency of Alcohol Use: Rare Hx Recreational Drug Use: No Drugs: None Hx Prescription Drug Abuse: No - Advance Directive Resuscitation Status: Full Code Surrogate healthcare decision maker:: Patient's son is the surrogate decision-maker Family History Family History: CAD, COPD, Hypertension Parental Family History Reviewed: Yes Children Family History Reviewed: Yes Sibling(s) Family History Reviewed.: Yes Medication/Allergy Home Medications: Amiodarone HCl [Cordarone 200 mg Tablet] 200 mg PO DAILY 02/17/18 Apixaban [Eliquis] 5 mg PO Q12 02/17/18 Atorvastatin Calcium [Lipitor 40 mg Tablet] 40 mg PO DAILY 02/17/18 Gabapentin [Neurontin 100 mg Capsule] 100 mg PO Q12HP PRN 02/17/18 Oxycodone HCl/Acetaminophen [Endocet 10-325 mg Tablet] 1 tab PO Q6HP PRN Sertraline HCl [Zoloft 50 mg Tablet] 50 mg PO DAILY 02/17/18 Cephalexin [Cephalexin 500 MG Capsule] 1 cap PO Q8 03/06/18 Fluticasone/Salmeterol [Advair 250-50 Diskus 28 dose] 1 inh IH Q12H 03/06/18 Furosemide [Lasix 20 mg Tablet] 20 mg PO QAM 03/06/18 Multivitamin [Multivitamins] 1 each PO DAILY 03/06/18 Torsemide [Demadex 20 mg Tablet] 20 mg PO DAILY 03/06/18 Umeclidinium Brm/Vilanterol Tr [Anoro Ellipta 62.5-25 Mcg INH] 1 each IH DAILY 03/06/18 Allergies/Adverse Reactions: No Known Allergies Allergy (Verified 02/17/18 14:22) Review of Systems Review of Systems: Please see history of present illness and past medical history as wall. Constitutional: No fever or chills reported. Head : No recent chronic headaches, recent head injury. Eyes: No recent eye pain, diplopia, redness, discharge, acute visual changes. Ears: No recent chronic ear pain, acute hearing loss, ear discharge. Oral cavity: No recent ulcerations, bleeding, oral cavity discomfort. Neck: No recent acute neck pain reported. Hematologic: No recent easy bruising or bleeding. Lymphatic: No recent lymph node enlargement reported. Cardiovascular system review: See history of present illness. Respiratory system review: No hemoptysis or blood clots in the lungs reported. Shortness of breath on exertion, with progressive edema Gastrointestinal system review: Negative for any recent acute hematemesis, melena. Genitourinary system review: No recent acute or chronic hematuria, flank pain, UTI etc. reported. Skin system review: Negative for any recent abnormal bruising, no rash, no pruritus reported. Neurologic: No prior history of strokes, mini strokes, seizure disorder. Psychologic: No history of major psychosis or major depression reported. Musculoskeletal: Minor aches and pains reported. No acute joint swelling reported. Endocrine: No recent polyuria, polydipsia, recent heat or cold intolerance. Physical Exam Vital Signs: Temp Pulse Resp BP Pulse Ox 97.5 F 60 22 H 132/53 H 100 03/07/18 15:55 03/07/18 19:00 03/07/18 15:55 03/07/18 15:55 03/07/18 15:55 Intake & Output 03/06/18 03/07/18 03/08/18 06:59 06:59 06:59 Intake Total 800 578 Output Total 300 2375 1600 Balance -300 -2001 -1022 Weight 147.7 kg 147.7 kg Exam: GENERAL: well-nourished and in no acute distress. Alert and oriented x3 HEAD: Atraumatic, normocephalic. EYES: Pupils equal round and reactive to light, extraocular movements intact, sclera anicteric, conjunctiva are normal. ENT: TMs normal, nares patent, oropharynx clear without exudates. Moist mucous membranes. No oral ulcerations or bleeding gums noted NECK: supple without lymphadenopathy. Trachea is central. No cervical or axillary lymphadenopathy noted. Carotids are 2+, JVD 12-14 cm LUNGS: Respiration seems nonlabored, no significant accessory muscle action noted. bibasilar fine crackles, with dullness left-sided chest CHEST: Palpation of the chest wall shows no significant chest wall tenderness. HEART: [employer], No PSH, 1/6 BARBI aortic area, 1/6 richards systolic murmur mitral area, no rubs, no gallops. ABDOMEN: Soft, no significant tenderness appreciated, normoactive bowel sounds. No guarding, no rebound. No rigidity noted . No masses appreciated. EXTREMITIES: Pedal pulses are 1-2+, no calf tenderness noted. No clubbing or cyanosis. 3+ pedal edema noted NEUROLOGICAL: Focused neurological exam showed no significant neurologic deficit. Normal speech, no focal weakness appreciated. PSYCH: Normal mood, normal affect. Judgment and insight within normal limits. SKIN: No significant ecchymosis, skin is noted to be warm. MUSCULOSKELETAL EXAM: No significant acute joint swelling noted. Results Laboratory Results: 03/07/18 04:24 03/07/18 04:24 03/06/18 03/07/18 03/07/18 19:50 04:24 04:24 WBC 6.4 RBC 3.18 L Hgb 8.9 L Hct 27.5 L MCV 86 MCH 28.1 MCHC 32.5 RDW 16.5 H Plt Count 203 Seg Neutrophils % 62.3 Lymphocytes % 20.5 Monocytes % 10.6 Eosinophils % 6.0 Basophils % 0.6 Absolute Neutrophils 4.0 Absolute Lymphocytes 1.3 Absolute Monocytes 0.7 Absolute Eosinophils 0.4 Absolute Basophils 0.0 Sodium 140.9 Potassium 5.2 H Chloride 98 Carbon Dioxide 34 H Anion Gap 9 BUN 53 H Creatinine 2.04 H Est GFR ( Amer) 39 L Est GFR (Non-Af Amer) 32 L Glucose 113 H Calcium 8.7 Total Bilirubin 0.6 AST 26 ALT 12 L Alkaline Phosphatase 79 Total Protein 7.6 Albumin 3.6 Stool Occult Blood NEGATIVE 03/05/18 03/06/18 03/06/18 20:58 03:15 08:51 Troponin I 0.022 0.023 0.019 EKG Comments: Atrial fibrillation with ventricular paced rhythm Impressions: Chest X-Ray 03/05/18 16:38 IMPRESSION: CONGESTIVE HEART FAILURE. LEFT PLEURAL EFFUSION. Assessment & Plan - Diagnosis (1) Acute on chronic combined systolic and diastolic CHF (congestive heart failure) Is this a current diagnosis for this admission?: Yes (2) Cardiac defibrillator in situ Is this a current diagnosis for this admission?: Yes (3) Acute renal failure superimposed on stage 3 chronic kidney disease Is this a current diagnosis for this admission?: Yes (4) Acute respiratory failure with hypoxia and hypercarbia Is this a current diagnosis for this admission?: Yes (5) Chronic atrial fibrillation Is this a current diagnosis for this admission?: No (6) COPD (chronic obstructive pulmonary disease) Qualifiers: COPD type: unspecified COPD Qualified Code(s): J44.9 - Chronic obstructive pulmonary disease, unspecified (7) Coronary artery disease Qualifiers: Coronary Disease-Associated Artery/Lesion type: [place] artery [place] vs. transplanted heart: [place] heart Associated angina: angina presence unspecified Qualified Code(s): I25.10 - Atherosclerotic heart disease of [place] coronary artery without angina pectoris - Notes Notes: Acute on chronic CHF, predominantly diastolic but I suspect significant contribution from right heart failure. Previous 2D echocardiogram reviewed and was technically difficult, was reviewed. Continue patient on IV diuretics. Monitor intake output, daily weight. Periodic BNP and chest x-ray will be essential in following CHF management. Acute on chronic respiratory failure: This is based on COPD, obesity hypoventilation syndrome, obstructive sleep apnea. Patient will benefit from nightly intermittent positive pressure ventilation and also was taking naps. COPD: Patient today claims that he had quit smoking several years ago. Continue bronchodilator and other therapy as needed. Obstructive sleep apnea: Patient will benefit from intermittent and nightly CPAP /BiPAP therapy. Left pleural effusion: Patient also has a smaller right pleural effusion. [place] to be related to CHF. Recommend continuing diuresis. However if pleural effusion persist may consider thoracentesis just for diagnostic purposes. I am told that patient had previous thoracentesis and the fluid was transudate. Status post defibrillator placement: Patient and noted to have a normal functioning defibrillator on cardiac monitoring. Patient noted to have V paced rhythm. Patient has a history of atrial fibrillation: Currently on amiodarone therapy. Patient currently is started on chronic anticoagulation with Eliquis. Continue current regimen. - Time Time Spent: 30 to 50 Minutes - CODE STATUS was discussed, patient remains full code. Surrogate decision-maker unchanged. Multiple medical problems were addressed. More than 50% of the time spent coordinating care, discussing management plans with involved caregivers. Management plans discussed with involved personnels. Medical decision making was of moderate to high complexity , patient's has multiple comorbidities. Medications reviewed and adjusted accordingly: Yes
[2018-03-07] MEDS: METOPROLOL TARTRATE 25 MG TABLET PO SCH (22:00)
[2018-03-08] MEDS: MORPHINE SULFATE 10 MG/ML INJ IV PRN (00:26)
[2018-03-08] MEDS: OXYCODONE-ACETAMINOPHEN 5-325 MG TABLET PO PRN ×4 (02:19→22:20)
[2018-03-08] MEDS: OXYCODONE HCL IR 5 MG TABLET PO PRN ×4 (02:20→22:19)
[2018-03-08] MEDS: SERTRALINE HCL 50 MG TABLET PO SCH (09:11)
[2018-03-08] MEDS: ASPIRIN 81 MG TABLET, CHEWABLE PO SCH (09:11)
[2018-03-08] MEDS: APIXABAN 5 MG TABLET PO SCH ×2 (09:11→22:18)
[2018-03-08] MEDS: ATORVASTATIN CALCIUM 40 MG TABLET PO SCH (09:11)
[2018-03-08] MEDS: FUROSEMIDE INJ/PF 40 MG/4 ML SDV IV SCH ×2 (09:12→22:14)
--- NOTE | 2018-03-08 10:21 | RADIOLOGY REPORT (SQ) ---
EXAM DESCRIPTION: CHEST SINGLE VIEW COMPLETED DATE/TIME: 03/08/2018 8:59 am REASON FOR STUDY: SOB COMPARISON: 03/05/2018 EXAM PARAMETERS: NUMBER OF VIEWS: One view. TECHNIQUE: Single frontal radiographic view of the chest acquired. RADIATION DOSE: NA LIMITATIONS: None. FINDINGS: LUNGS AND PLEURA: Predominately basilar airspace densities all are identified with a small left pleural effusion and interval development of a small right pleural effusion. MEDIASTINUM AND HILAR STRUCTURES: No masses. Contour normal. HEART AND VASCULAR STRUCTURES: Cardiac silhouette remains enlarged. There is pulmonary vascular jaylon estion. BONES: No acute findings. HARDWARE: Patient is status post median sternotomy. AICD device is unchanged in position. OTHER: No other significant finding. IMPRESSION: Congestive failure pattern as noted above TECHNICAL DOCUMENTATION: JOB ID: [id number] PDV- All Rights Reserved Reading location - IP/workstation name: [email or web address]
--- NOTE | 2018-03-08 10:46 | PDOC PROGRESS REPORT ---
Subjective Progress Note for:: 03/08/18 Subjective:: Mr. Ness is a 72 y old male with CHF, SUNNY, sick sinus syndrome, CAD and multiple prior admission for recurrent CHF exacerbations who was admitted for another CHF exacerbation. He initially presented with worsening SOB, increasing pedal edema and scrotal swelling. Overnight, patient had transient desaturation to 80s while on nasal cannula. Currently saturating well on 35% FiO2. Denies chest pain, cough, fever or chills. He did complain earlier of SOB this morning and was noted to have decreased breath sounds bilaterall. He was given a breathing treatment and did get significant relief from it. Reason For Visit: ACUTE HYPOXIC RESPIRATORY FAILURE, CHF Physical Exam Vital Signs: Temp Pulse Resp BP Pulse Ox 97.4 F 60 18 97/51 L 92 03/08/18 07:37 03/08/18 07:47 03/08/18 07:47 03/08/18 07:37 03/08/18 07:47 Intake & Output 03/07/18 03/08/18 03/09/18 06:59 06:59 06:59 Intake Total 800 800 Output Total 2375 2875 Balance -1575 -2075 Weight 321 lb 6.943 oz General appearance: PRESENT: no acute distress, obese Head exam: PRESENT: atraumatic, normocephalic Eye exam: PRESENT: conjunctiva pink, EOMI, PERRLA. ABSENT: scleral icterus Ear exam: PRESENT: normal external ear exam Neck exam: ABSENT: carotid bruit, JVD, lymphadenopathy, thyromegaly Respiratory exam: PRESENT: clear to auscultation shivani, other - slightly decreased BS on the bases. ABSENT: rales, rhonchi, wheezes Cardiovascular exam: PRESENT: irregular rhythm, systolic murmur Pulses: PRESENT: normal dorsalis pedis pul GI/Abdominal exam: PRESENT: normal bowel sounds, soft, other - obese. ABSENT: guarding, mass, organolmegaly, rebound, tenderness Rectal exam: PRESENT: deferred Gentrourinary exam: PRESENT: scrotal swelling Extremities exam: PRESENT: other - +3 pedal edema Neurological exam: PRESENT: alert, awake, oriented to person, oriented to place , oriented to time, oriented to situation, CN II-XII grossly intact. ABSENT: motor sensory deficit Results Laboratory Results: 03/07/18 04:24 03/07/18 04:24 03/05/18 03/06/18 03/06/18 20:58 03:15 08:51 Troponin I 0.022 0.023 0.019 Impressions: Chest X-Ray 03/08/18 06:00 IMPRESSION: Congestive failure pattern as noted above Assessment & Plan - Diagnosis (1) Acute respiratory failure with hypoxia and hypercarbia Is this a current diagnosis for this admission?: Yes Plan: This is a combination from acute CHF exacerbation and COPD exacerbation. Patient did have decreased breath sounds earlier today and had desaturation which was promptly relieved with a breathing treatment. (2) CHF exacerbation Qualifiers: Heart failure type: combined systolic and diastolic Qualified Code(s): I50.43 - Acute on chronic combined systolic (congestive) and diastolic ( congestive) heart failure Is this a current diagnosis for this admission?: Yes Plan: Acute on chronic heart failure exacerbation with preserved/recovered ejection fraction. Patient's recent echo did show an EF of 65% in November 2017. He had a previous EF of 40% in 2010. Continue diuresis with 40 mg of IV Lasix q12. Continue lopressor and losartan. Cardiology following. Continue I&Os, sodium and fluid restriction. (3) Atrial fibrillation Qualifiers: Atrial fibrillation type: paroxysmal Qualified Code(s): I48.0 - Paroxysmal atrial fibrillation Is this a current diagnosis for this admission?: Yes Plan: Rate-controlled. Patient is v-paced. Continue Eliquis and lopressor. (4) COPD exacerbation Is this a current diagnosis for this admission?: Yes Plan: Patient does have COPD and uses Advaor and umeclidinium inhalers at home. Will add IV steroids today. Breathing treatment with duoneb q6 scheduled. (5) Acute renal failure superimposed on stage 3 chronic kidney disease Is this a current diagnosis for this admission?: Yes Plan: Patient is currently being diuresed due to CHF exacerbation. Repeat BMP today to reassess renal functions. (6) Coronary artery disease Qualifiers: Coronary Disease-Associated Artery/Lesion type: [place] artery [place] vs. transplanted heart: [place] heart Associated angina: angina presence unspecified Qualified Code(s): I25.10 - Atherosclerotic heart disease of [place] coronary artery without angina pectoris Is this a current diagnosis for this admission?: Yes Plan: Patient has history of CABG. Added Lopressor and losartan on tis admission. Continue aspirin and statin. (7) Pleural effusion Is this a current diagnosis for this admission?: Yes Plan: Chest x-ray shows small bilateral effusion. He had prior thoracentesis in previous admissions which was more consistent with CHF-related pleural effusion. Will continue diuresis for now. - Time Time Spent with patient: 25-34 minutes
[2018-03-08] MEDS ORDERED: ALBUTEROL SULFATE 0.083% NEB 2.5 MG/3 ML AMPUL NEB ONE (11:00)
[2018-03-08 12:54] LABS: BLOOD UREA NITROGEN 47 mg/dL (7-20); CALCIUM 8.3 mg/dL (8.4-10.2); GLUCOSE 132 mg/dL (75-110); POTASSIUM 4.4 mmol/L (3.6-5.0)
[2018-03-08 12:59] LABS: CARBON DIOXIDE 39 mmol/L (22-30); CHLORIDE 98 mmol/L (98-107); SODIUM 140.1 mmol/L (137-145)
[2018-03-08 13:00] LABS: ANION GAP 3 (5-19)
[2018-03-08] MEDS: METOPROLOL TARTRATE 25 MG TABLET PO SCH ×2 (13:33→22:18)
[2018-03-08] MEDS: LOSARTAN POTASSIUM 25 MG TABLET PO SCH (13:33)
[2018-03-08] MEDS: SENNOSIDES/DOCUSATE 8.6-50 MG 1 EACH TABLET PO SCH (13:38)
[2018-03-08] MEDS: METHYLPREDNISOLONE INJ 40 MG/1 ML SDV IV SCH (13:38)
[2018-03-08] MEDS: IPRATROPIUM/ALBUTEROL 0.5-2.5 MG/3 ML AMPUL NEB SCH ×2 (14:29→20:20)
--- NOTE | 2018-03-08 15:11 | PROGRESS NOTE E ---
Progress Note NAME: DANIEL OLIVA : 1945 AGE: 72Y DATE: 03/08/2018 ROOM: 305 SUBJECTIVE: The patient appears to be in mild to moderate respiratory distress with some wheezing. He denies any cough. The patient is able to lie down flat. He is on BiPAP. He has no arrhythmias. He has a paced rhythm. The patient denies any chest pain or discomfort. The patient does appear to be slightly drowsy. OBJECTIVE: GENERAL: The patient is morbidly obese, and at present, in mild to moderate respiratory distress. VITAL SIGNS: He is afebrile, with a temperature of 97.3 degrees Fahrenheit. Pulse is 60 beats per minute, blood pressure 116/59, respirations are 16 per minute. O2 sats are 96% on the BiPAP, with an FiO2 of 30%. HEENT: Head is atraumatic, normocephalic. Eyes: Pupils are equal, round, regular, reactive to light and accommodation. Extraocular movements are normal. ENT is negative. NECK: Supple. There is mild JVD present. Carotids are equal. There is no bruit. There is no lymphadenopathy. There is no use of accessory muscles of respirations. LUNGS: Showed diminished air entry and prolonged expiration with bibasilar rales. There is also scattered rhonchi and wheezing. There is diminished air entry and prolonged expiration throughout. There is hyperresonance on percussion. CHEST: There is no chest wall tenderness. HEART: S1, S2 are heard. There is no S3 gallop, there is no S4 gallop. There is a systolic murmur at the left sternal border, at the apex. There is no rub. ABDOMEN: Abdomen is soft, obese. There is no hepatosplenomegaly. There is questionable ascites present on percussion. There is no abdominal pain or tenderness. There is no rebound, guarding or rigidity. EXTREMITIES: Femorals are diminished. There are no femoral bruits. Leg pulses are diminished. There is 1+ pedal edema bilaterally. There is no DVT or cellulitis. There is no cyanosis or clubbing. There is no calf tenderness. GENITOURINARY: There is testicular swelling, which is 2+. RUBBER GOODS INSPECTOR: The patient is conscious, slightly drowsy, but moves all 4 extremities. PSYCHIATRIC: The patient does not appear to be agitated. DIAGNOSTICS: The patient's chest x-ray shows congestive heart failure prior pattern. The patient's sodium is 140.1, potassium 4.4, chloride is 98, CO2 is 39. The patient's BUN is 47, creatinine 1.75. GFR is reduced at 38 mL, which is chronic kidney disease stage 3. This is improved from his GFR of 32 yesterday. His glucose is 132. His hemoglobin A1c on the 06 of March was 5.7. His calcium is 8.3. His liver function tests are normal. He has a low ALT of 12. His albumin is 3.6. His total protein is 7.6. His troponin I is 0.019. There is no firing of his AICD. IMPRESSION: 1. ACUTE RESPIRATORY FAILURE, SECONDARY TO EXACERBATION OF COPD AND ALSO TO CONGESTIVE HEART FAILURE, BIVENTRICULAR, BOTH ACUTE VOLUME OVERLOAD, LEFT VENTRICULAR SYSTOLIC HEART FAILURE AND LV DIASTOLIC HEART FAILURE, AND ALSO RIGHT VENTRICULAR SYSTOLIC HEART FAILURE. 2. SUSPECT SIGNIFICANT PULMONARY HYPERTENSION, ALTHOUGH THE ECHO SHOWED ONLY MILD PULMONARY HYPERTENSION IN THE PAST. 3. AICD. No firing of AICD. 4. CHRONIC KIDNEY DISEASE, STAGE 3. 5. CHRONIC ATRIAL FIBRILLATION. 6. COPD WITHOUT ACUTE EXACERBATION. 7. CORONARY ARTERY DISEASE. No evidence of [place]. No anginal symptoms. RECOMMENDATIONS: Continue the patient's Lasix. Continue aspirin. Continue atorvastatin. Continue his albuterol. Continue his steroids. Continue his metoprolol, but if his wheezing continues, would hold it for a while. Consider antibiotics. Continue losartan. Will follow with you. Would recommend checking a thyroid function test. Continue the patient on Eliquis. There is no *------* with Eliquis. Note, medical decision-making is of moderate to high complexity, in view of the multiple comorbid conditions that the patient has. Discussed with the patient's son. Medications have been reviewed. The patient is a FULL CODE. His son is his surrogate healthcare decision-maker. Discussed with the hospitalist taking care of the patient. Due the inclement weather here the patient being transferred to a hospital in [place]. Hence will sign off the case. Thank you. DICTATING PHYSICIAN: JASKARAN OLIVAS M.D. [id number] RAMEZ#: [id number] ID: [id number] JOB#: [id number] ACCT: [id number] cc: > MTDD
[2018-03-08] MEDS: SODIUM CHLORIDE NASAL SPRAY 44 ML NASL SCH (15:27)
--- NOTE | 2018-03-08 15:38 | PDOC TRANSFER SUMMARY ---
General Admission Date/PCP: 03/05/18 19:42 MAURICE ORTIZ DO Resuscitation Status: Full Code - Transfer Diagnosis (1) Acute respiratory failure with hypoxia and hypercarbia Is this a current diagnosis for this admission?: Yes (2) CHF exacerbation Is this a current diagnosis for this admission?: Yes (3) Atrial fibrillation Is this a current diagnosis for this admission?: Yes (4) COPD exacerbation Is this a current diagnosis for this admission?: Yes (5) Acute renal failure superimposed on stage 3 chronic kidney disease Is this a current diagnosis for this admission?: Yes (6) Coronary artery disease Is this a current diagnosis for this admission?: Yes (7) Pleural effusion Is this a current diagnosis for this admission?: Yes - Transfer Medications Home Medications: Amiodarone HCl [Cordarone 200 mg Tablet] 200 mg PO DAILY 02/17/18 Apixaban [Eliquis] 5 mg PO Q12 02/17/18 Atorvastatin Calcium [Lipitor 40 mg Tablet] 40 mg PO DAILY 02/17/18 Gabapentin [Neurontin 100 mg Capsule] 100 mg PO Q12HP PRN 02/17/18 Oxycodone HCl/Acetaminophen [Endocet 10-325 mg Tablet] 1 tab PO Q6HP PRN Sertraline HCl [Zoloft 50 mg Tablet] 50 mg PO DAILY 02/17/18 Cephalexin [Cephalexin 500 MG Capsule] 1 cap PO Q8 03/06/18 Fluticasone/Salmeterol [Advair 250-50 Diskus 28 dose] 1 inh IH Q12H 03/06/18 Furosemide [Lasix 20 mg Tablet] 20 mg PO QAM 03/06/18 Multivitamin [Multivitamins] 1 each PO DAILY 03/06/18 Torsemide [Demadex 20 mg Tablet] 20 mg PO DAILY 03/06/18 Umeclidinium Brm/Vilanterol Tr [Anoro Ellipta 62.5-25 Mcg INH] 1 each IH DAILY 03/06/18 Transfer Medications: Current Medications Acetaminophen (Tylenol 325 Mg Tablet) 650 mg PO Q4HP PRN PRN Reason: FOR PAIN OR TEMP Stop: 04/04/18 21:08 Al Hydrox/Mg Hydrox/Simethicone (Maalox Plus Susp 30 Udcup) 30 ml PO Q6HP PRN PRN Reason: HEARTBURN Stop: 04/04/18 21:08 Albuterol/Ipratropium (Duoneb 3 Ml Ampul) 3 ml NEB RTQ3HP PRN PRN Reason: SHORTNESS OF BREATH Stop: 04/04/18 21:08 Last Admin: 03/08/18 07:48 Dose: 3 ml Albuterol/Ipratropium (Duoneb 3 Ml Ampul) 3 ml NEB RTQ6 NINO Stop: 04/07/18 13:59 Last Admin: 03/08/18 14:29 Dose: 3 ml Apixaban (Eliquis 5 Mg Tablet) 5 mg PO Q12 NINO Stop: 04/05/18 21:59 Last Admin: 03/08/18 09:11 Dose: 5 mg Aspirin (Aspirin 81 Mg Chewable Tablet) 81 mg PO DAILY NINO Stop: 04/06/18 09:59 Last Admin: 03/08/18 09:11 Dose: 81 mg Atorvastatin Calcium (Lipitor 40 Mg Tablet) 40 mg PO DAILY NINO Stop: 04/06/18 09:59 Last Admin: 03/08/18 09:11 Dose: 40 mg Furosemide (Lasix Inj/Pf 40 Mg/4 Ml Sdv) 40 mg IV Q12 NINO Stop: 04/05/18 09:59 Last Admin: 03/08/18 09:12 Dose: 40 mg Gabapentin (Neurontin 100 Mg Capsule) 100 mg PO Q12HP PRN PRN Reason: FOR PAIN Stop: 04/05/18 14:21 Losartan Potassium (Cozaar 25 Mg Tablet) 25 mg PO DAILY NINO Stop: 04/07/18 09:59 Last Admin: 03/08/18 13:33 Dose: Not Given Methylprednisolone Sodium Succinate (Solu-Medrol Inj/Pf 40 Mg/1 Ml Sdv) 40 mg IV Q12 NINO Stop: 04/07/18 11:29 Last Admin: 03/08/18 13:38 Dose: 40 mg Metoprolol Tartrate (Lopressor 25 Mg Tablet) 12.5 mg PO Q12 NINO Stop: 04/06/18 21:59 Last Admin: 03/08/18 13:33 Dose: Not Given Morphine Sulfate (Morphine 10 Mg/Ml Inj) 1 mg IV Q4HP PRN PRN Reason: FOR PAIN Stop: 03/12/18 21:15 Last Admin: 03/08/18 00:26 Dose: 1 mg Oxycodone HCl (Oxy-Ir 5 Mg Tablet) 5 mg PO Q6HP PRN PRN Reason: FOR PAIN Stop: 03/13/18 21:10 Last Admin: 03/08/18 09:11 Dose: 5 mg Oxycodone/Acetaminophen (Percocet 5-325 Mg Tablet) 1 tab PO Q6HP PRN PRN Reason: FOR PAIN Stop: 03/13/18 21:10 Last Admin: 03/08/18 02:19 Dose: 1 tab Promethazine HCl (Phenergan 25 Mg Tablet) 25 mg PO Q4HP PRN PRN Reason: FOR NAUSEA/VOMITING Stop: 04/04/18 21:08 Promethazine HCl (Phenergan Inj 25 Mg/1 Ml Vial) 25 mg IV Q4HP PRN PRN Reason: FOR NAUSEA/VOMITING Stop: 04/04/18 21:08 Senna/Docusate Sodium (Senna Plus Tablet) 1 each PO DAILY NINO Stop: 04/07/18 11:59 Last Admin: 03/08/18 13:38 Dose: 1 each Sertraline HCl (Zoloft 50 Mg Tablet) 50 mg PO DAILY NINO Stop: 04/06/18 09:59 Last Admin: 03/08/18 09:11 Dose: 50 mg Sodium Chloride (Saline Flush 2.5 Ml Monoject Prefil Syrin) 2.5 ml IV Q8 NINO Stop: 04/05/18 05:59 Last Admin: 03/08/18 13:50 Dose: 2.5 ml Sodium Chloride ([place] Nasal [place] 44 Ml Bottle) 1 spray NASL DAILY NINO Stop: 04/07/18 12:29 - Allergies Allergies/Adverse Reactions: No Known Allergies Allergy (Verified 02/17/18 14:22) Hospital Course Hospital Course: Mr. Ness is a 72 y old male with COPD, atrial fibrillation on Eliquis, CKD 3 , SUNNY, CHF, on 2 L of home O2, sick sinus syndrome, prior AICD placement, CAD and multiple prior admission for recurrent CHF exacerbations who was admitted for another CHF exacerbation with concomitant COPD exacerbation. He initially presented with worsening SOB, increasing pedal edema and scrotal swelling. Patient was initially placed on BIPAP. Chest x-ray shows small bilateral effusion and pulmonary congestion. He was started on IV Lasix 40 mg bid. He was also started on solumedrol and scheduled breathing treatments. He was initially started on cefepime and vancomycin but these were discontinued as patient's presentation was more consistent with CHF and COPD exacerbation rather than a presence of concomitant pneumonia. Cardiology was also consulted. He did have LEYLA on top of CKD but because of his CHF exacerbation, diuresis was continued. His echo in 2010 showed an EF of 40-45% with diastolic dysfunction. An echo done in November 2017 showed an EF of 60% but was technically difficult to reassess diastolic function. He has been on and off BIPAP. Due to concomitant multiple medical issues particularly acute COPD, CHF exacerbations requiring diuresis in the context of LEYLA on top of CKD, patient will benefit with escalating care. He will be transferred to [facility] in [place]. Physical Exam Vital Signs: Temp Pulse Resp BP Pulse Ox 97.3 F 60 18 116/59 L 90 L 03/08/18 11:11 03/08/18 14:30 03/08/18 14:30 03/08/18 11:11 03/08/18 14:30 Intake & Output 03/07/18 03/08/18 03/09/18 06:59 06:59 06:59 Intake Total 800 800 474 Output Total 2375 2875 300 Balance -1575 -2075 174 Weight 321 lb 6.943 oz General appearance: PRESENT: no acute distress, well-developed, well-nourished Head exam: PRESENT: atraumatic, normocephalic Eye exam: PRESENT: conjunctiva pink, EOMI, PERRLA. ABSENT: scleral icterus Ear exam: PRESENT: normal external ear exam Mouth exam: PRESENT: moist, tongue midline Neck exam: ABSENT: carotid bruit, JVD, lymphadenopathy, thyromegaly Respiratory exam: PRESENT: clear to auscultation shivani, other - slightly decreased breath sounds on the bases. ABSENT: rales, rhonchi, wheezes Cardiovascular exam: PRESENT: irregular rhythm, systolic murmur Pulses: PRESENT: normal dorsalis pedis pul GI/Abdominal exam: PRESENT: normal bowel sounds, soft. ABSENT: distended, guarding, mass, organolmegaly, rebound, tenderness Rectal exam: PRESENT: deferred Gentrourinary exam: PRESENT: other - note of scrotal swelling improved from yesterday Extremities exam: PRESENT: other - +3 pedal edema Neurological exam: PRESENT: alert, awake, oriented to person, oriented to place , oriented to time, oriented to situation, CN II-XII grossly intact. ABSENT: motor sensory deficit Results Laboratory Results: 03/07/18 04:24 03/08/18 12:25 03/08/18 12:25 Sodium 140.1 Potassium 4.4 Chloride 98 Carbon Dioxide 39 H Anion Gap 3 L BUN 47 H Creatinine 1.75 H Est GFR ( Amer) 46 L Est GFR (Non-Af Amer) 38 L Glucose 132 H Calcium 8.3 L 03/05/18 03/06/18 03/06/18 20:58 03:15 08:51 Troponin I 0.022 0.023 0.019 Impressions: Chest X-Ray 03/08/18 06:00 IMPRESSION: Congestive failure pattern as noted above
[2018-03-09] MEDS: MORPHINE SULFATE 10 MG/ML INJ IV PRN (00:52)
[2018-03-09] MEDS: IPRATROPIUM/ALBUTEROL 0.5-2.5 MG/3 ML AMPUL NEB SCH ×2 (01:58→08:07)
[2018-03-09] MEDS: OXYCODONE HCL IR 5 MG TABLET PO PRN ×2 (05:28→12:31)
[2018-03-09] MEDS: OXYCODONE-ACETAMINOPHEN 5-325 MG TABLET PO PRN ×2 (05:28→12:31)
[2018-03-09] MEDS: METHYLPREDNISOLONE INJ 40 MG/1 ML SDV IV SCH ×2 (08:41→09:17)
[2018-03-09] MEDS: ATORVASTATIN CALCIUM 40 MG TABLET PO SCH (09:16)
[2018-03-09] MEDS: APIXABAN 5 MG TABLET PO SCH (09:17)
[2018-03-09] MEDS: ASPIRIN 81 MG TABLET, CHEWABLE PO SCH (09:17)
[2018-03-09] MEDS: SERTRALINE HCL 50 MG TABLET PO SCH (09:17)
[2018-03-09] MEDS: FUROSEMIDE INJ/PF 40 MG/4 ML SDV IV SCH (09:17)
[2018-03-09] MEDS: SENNOSIDES/DOCUSATE 8.6-50 MG 1 EACH TABLET PO SCH (09:17)
[2018-03-09] MEDS: METOPROLOL TARTRATE 25 MG TABLET PO SCH (09:17)
[2018-03-09] MEDS: LOSARTAN POTASSIUM 25 MG TABLET PO SCH (09:17)
[2018-03-09] MEDS: SODIUM CHLORIDE NASAL SPRAY 44 ML NASL SCH (09:28)
[2018-03-09 09:44] LABS: ANION GAP 9 (5-19); BLOOD UREA NITROGEN 56 mg/dL (7-20); CALCIUM 8.8 mg/dL (8.4-10.2); CARBON DIOXIDE 34 mmol/L (22-30); CHLORIDE 97 mmol/L (98-107); GLUCOSE 193 mg/dL (75-110); POTASSIUM 4.8 mmol/L (3.6-5.0); SODIUM 140.3 mmol/L (137-145)
--- NOTE | 2018-03-09 11:33 | Progress Note ---
Provider Note Provider Note: Patient was supposed to be transferred yesterday afternoon however transport team had difficulty transporting patient as he requires a bariatric stretcher. No acute event overnight. No changes in current plan and management. Case management still working transporting patient to transport patient today.
[2018-03-09 12:27] VITALS: BP 123/55
== END 2018-03-09 12:55 | disposition other institution (70) | DRG 291 ==
LOC: ER 16:30 → EH 19:42 → 3N 22:44 → 3W 03-08 19:18
PROVIDERS: ADMIT Internal Medicine; ATTEND Internal Medicine
PROC: 5A09457 Assistance with Respiratory Ventilation, 24-96 Consecutive Hours, Continuous Positive Airway Pressure (ICD-10-PCS; principal; 2018-03-05)
PROC: 3E0F73Z Introduction of Anti-inflammatory into Respiratory Tract, Via Natural or Artificial Opening (ICD-10-PCS; 2018-03-05)
DX: I13.0 Hypertensive heart and chronic kidney disease with heart failure and stage 1 through stage 4 chronic kidney disease, or unspecified chronic kidney disease (principal); J96.21 Acute and chronic respiratory failure with hypoxia; I50.43 Acute on chronic combined systolic (congestive) and diastolic (congestive) heart failure; J96.22 Acute and chronic respiratory failure with hypercapnia; J44.1 Chronic obstructive pulmonary disease with (acute) exacerbation; N17.9 Acute kidney failure, unspecified; E66.2 Morbid (severe) obesity with alveolar hypoventilation; Z68.42 Body mass index [BMI] 45.0-49.9, adult; N18.3 Chronic kidney disease, stage 3 (moderate); I25.10 Atherosclerotic heart disease of native coronary artery without angina pectoris; E78.00 Pure hypercholesterolemia, unspecified; F32.9 Major depressive disorder, single episode, unspecified; M19.90 Unspecified osteoarthritis, unspecified site; I48.2 Chronic atrial fibrillation; D63.1 Anemia in chronic kidney disease; I48.0 Paroxysmal atrial fibrillation; I25.2 Old myocardial infarction; Z79.899 Other long term (current) drug therapy; Z99.81 Dependence on supplemental oxygen; Z95.810 Presence of automatic (implantable) cardiac defibrillator; Z86.711 Personal history of pulmonary embolism; Z95.1 Presence of aortocoronary bypass graft; Z95.5 Presence of coronary angioplasty implant and graft; Z95.0 Presence of cardiac pacemaker; Z87.891 Personal history of nicotine dependence; Z82.49 Family history of ischemic heart disease and other diseases of the circulatory system; Z83.6 Family history of other diseases of the respiratory system
CPT/HCPCS: 36415; 36600; 71045; 80048; 80053; 80307; 81001; 82272; 82550; 82803; 83036; 83690; 83735; 83880; 84100; 84484; 85025; 85610; 87040; 93005; 93010; 94660; 96374; 96375; 99291; J0692; J1940; J2270; J2920; J3370; J3490; J7620

== ENCOUNTER 2018-04-19 16:31 | Inpatient (IN) | payer MEDICARE, MEDICAID ==
[2018-04-19] MEDS ORDERED: VANCOMYCIN HCL INJ 1000 MG VIAL IV ONE (16:44)
[2018-04-19] MEDS ORDERED: PIPERACILLIN/TAZOBACTAM 3.375 GM VIAL IV ONE (16:44)
--- NOTE | 2018-04-19 16:49 | ER Document Report ---
ED General - General Stated Complaint: SHORT OF BREATH Time Seen by Provider: 04/19/18 16:38 Notes: Patient is a 72-year-old male with multiple chronic medical conditions including CHF, COPD, diabetes, that presents to the emergency department for chief complaint of shortness of breath. Patient reports she has had these symptoms over the last several days, and have become progressively worse, he was found by EMS to have a pulse ox of 89% on home oxygen, increased work of breathing, he was placed on CPAP by EMS. Patient reports he has had increased lower extremity edema, and increased "water weight" over the last several days. He is noticed about a week of redness in his lower abdomen has been tender to palpate as well. He thinks has been getting worse as well. He denies having any chest pain, fevers, chills or cough. Family History: Reviewed and noncontributory for presenting illness Allergies: Reviewed, see documented allergy list. REVIEW OF SYSTEMS: Unless otherwise stated in this report the patient's positive and negative responses for review of systems for constitutional, eyes, ENT, cardiovascular, respiratory, gastrointestinal, neurological, genitourinary, musculoskeletal, and integumentary systems and related systems to the presenting problem are either as stated in the HPI or were not pertinent or were negative for the symptoms and/or complaints related to the presenting medical problem. PHYSICAL EXAMINATION: Vital signs reviewed, nursing noted reviewed. GENERAL: Elderly, chronically ill-appearing male, in respiratory distress, on BiPAP HEAD: Atraumatic, normocephalic. EYES: Eyes appear normal, extraocular movements intact, sclera anicteric, conjunctiva are normal. ENT: nares patent, oropharynx clear without exudates. Moist mucous membranes. NECK: Normal range of motion, supple without lymphadenopathy LUNGS: Severely diminished lung sounds at the bases bilaterally in the lungs, also diminished in the upper molina, no wheezing or rhonchi noted. In respiratory distress, currently on BiPAP. HEART: Regular rate and rhythm without murmurs ABDOMEN: Soft, obese, edematous, and erythematous, tender to palpate over the areas of erythema in the lower abdomen, normoactive bowel sounds. No rebound, guarding, or rigidity. No masses appreciated. EXTREMITIES: Severe bilateral lower extremity pitting edema, there is a skin tear noted over the lateral aspect of the left ankle, no signs of infection at that site. Pulses equal distally bilaterally. NEUROLOGICAL: No focal neurological deficits. Moves all extremities spontaneously Motor and sensory grossly intact on exam. PSYCH: Patient is agitated, but answering questions appropriately SKIN: Warm, Dry, normal turgor, no rashes or lesions noted on exposed skin TRAVEL OUTSIDE OF THE [place] IN LAST 30 DAYS: No - Related Data Allergies/Adverse Reactions: No Known Allergies Allergy (Verified 02/17/18 14:22) Past Medical History - Social History Smoking Status: Never Smoker Family History: CAD, COPD, Hypertension - Past Medical History Cardiac Medical History: Reports: Hx Atrial Fibrillation, Hx Congestive Heart Failure, Hx Coronary Artery Disease, Hx Heart Attack, Hx Hypercholesterolemia, Hx Hypertension, Hx Pulmonary Embolism Pulmonary Medical History: Reports: Hx COPD Neurological Medical History: Denies: Hx Seizures Endocrine Medical History: Denies: Hx Diabetes Mellitus Type 2 - History of same , but only on medication for short time. Renal/ Medical History: Denies: Hx End Stage Renal Disease, Hx Peritoneal Dialysis GI Medical History: Denies: Hx Crohn's Disease, Hx Ulcerative Colitis Musculoskeletal Medical History: Reports Hx Arthritis Skin Medical History: Denies Hx Psoriasis Psychiatric Medical History: Reports: Hx Depression Traumatic Medical History: Denies: Hx Traumatic Brain Injury Past Surgical History: Reports: Hx Cardiac Catheterization, Hx Cardiac Surgery - Pacemaker-removed due to infection, Hx Coronary Artery Bypass Graft, Hx Coronary Stent, Hx Internal Defibrillator, Hx Pacemaker - Battery change out and then explantation., Hx Tonsillectomy - Immunizations Hx Diphtheria, Pertussis, Tetanus Vaccination: No - >5 YRS Hx Pneumococcal Vaccination: 03/27/11 Physical Exam - Vital signs Vitals: Resp Pulse Ox 19 98 04/19/18 16:35 04/19/18 16:35 Course - Re-evaluation Re-evalutation: Patient seen and examined vital signs reviewed. Laboratory data and imaging were ordered as appropriate for the patient's presenting symptoms and complaint, with consideration of any critical or life threatening conditions that may be associated with their obtained history and exam as noted above. Patient was treated with BiPAP, IV Lasix, and started on IV antibiotics for what appeared to be an abdominal wall cellulitis Results were reviewed when available and demonstrated fluid overload and pulmonary edema on chest x-ray, ABG was consistent with a acute CO2 retention, and acute on chronic respiratory failure The patient was re-evaluated and was improving on the BiPAP, but still in serious condition, needing admission to the hospital to correct his acute on chronic respiratory failure, IV antibiotics for what appeared to be abdominal wall cellulitis, blood cultures sent and pending Results were discussed with the patient at this point after careful consideration I feel that that patient should be admitted to the hospital. This was discussed with the patient that it is in the best interest for their care to be admitted for further evaluation and management. Patient agreed with this plan of care. A call was placed to the admitted physician, Dr. Ramos who graciously accepted the patient onto their service. *Note is created using voice recognition software and may contain spelling, syntax or grammatical errors. Laboratory 04/19/18 04/19/18 04/19/18 16:40 16:40 16:40 WBC 4.7 RBC 3.06 L Hgb 7.7 L Hct 25.2 L MCV 82 MCH 25.3 L MCHC 30.7 L RDW 17.1 H Plt Count 244 Seg Neutrophils % 63.7 Lymphocytes % 20.6 Monocytes % 12.6 Eosinophils % 2.5 Basophils % 0.6 Absolute Neutrophils 3.0 Absolute Lymphocytes 1.0 Absolute Monocytes 0.6 Absolute Eosinophils 0.1 Absolute Basophils 0.0 PT INR APTT Carbonic Acid HCO3/H2CO3 Ratio ABG pH ABG pCO2 ABG pO2 ABG HCO3 ABG Total CO2 ABG O2 Saturation ABG Base Excess FiO2 Sodium 139.3 Potassium 4.8 Chloride 95 L Carbon Dioxide 38 H Anion Gap 6 BUN 39 H Creatinine 1.72 H Est GFR ( Amer) 47 L Est GFR (Non-Af Amer) 39 L Glucose 131 H POC Glucose Lactic Acid Calcium 8.5 Total Bilirubin 0.7 Direct Bilirubin 0.3 Neonat Total Bilirubin Not Reportable Neonat Direct Bilirubin Not Reportable Neonat Indirect Bili Not Reportable AST 42 ALT 43 Alkaline Phosphatase 81 Creatine Kinase 53 L CK-MB (CK-2) 1.59 Troponin I 0.027 NT-Pro-B Natriuret Pep 3260 H Total Protein 7.2 Albumin 3.6 Urine Color Urine Appearance Urine pH Ur Specific Bromide Urine Protein Urine Glucose (UA) Urine Ketones Urine Blood Urine Nitrite Urine Bilirubin Urine Urobilinogen Ur Leukocyte Esterase Urine WBC (Auto) U Hyaline Cast (Auto) Urine Bacteria (Auto) Urine Mucus (Auto) Urine Ascorbic Acid 04/19/18 04/19/1818 16:40 16:50 16:55 WBC RBC Hgb Hct MCV MCH MCHC RDW Plt Count Seg Neutrophils % Lymphocytes % Monocytes % Eosinophils % Basophils % Absolute Neutrophils Absolute Lymphocytes Absolute Monocytes Absolute Eosinophils Absolute Basophils PT 17.9 H INR 1.40 APTT 35.7 Carbonic Acid 1.95 H HCO3/H2CO3 Ratio 16:1 ABG pH 7.31 L ABG pCO2 64.9 H ABG pO2 125.3 H ABG HCO3 31.6 H ABG Total CO2 33.6 H ABG O2 Saturation 98.1 H ABG Base Excess 4.1 FiO2 45% Sodium Potassium Chloride Carbon Dioxide Anion Gap BUN Creatinine Est GFR ( Amer) Est GFR (Non-Af Amer) Glucose POC Glucose Lactic Acid 0.8 Calcium Total Bilirubin Direct Bilirubin Neonat Total Bilirubin Neonat Direct Bilirubin Neonat Indirect Bili AST ALT Alkaline Phosphatase Creatine Kinase CK-MB (CK-2) Troponin I NT-Pro-B Natriuret Pep Total Protein Albumin Urine Color Urine Appearance Urine pH Ur Specific Bromide Urine Protein Urine Glucose (UA) Urine Ketones Urine Blood Urine Nitrite Urine Bilirubin Urine Urobilinogen Ur Leukocyte Esterase Urine WBC (Auto) U Hyaline Cast (Auto) Urine Bacteria (Auto) Urine Mucus (Auto) Urine Ascorbic Acid 04/19/18 04/19/18 04/19/18 20:24 22:07 23:23 WBC RBC Hgb Hct MCV MCH MCHC RDW Plt Count Seg Neutrophils % Lymphocytes % Monocytes % Eosinophils % Basophils % Absolute Neutrophils Absolute Lymphocytes Absolute Monocytes Absolute Eosinophils Absolute Basophils PT INR APTT Carbonic Acid HCO3/H2CO3 Ratio ABG pH ABG pCO2 ABG pO2 ABG HCO3 ABG Total CO2 ABG O2 Saturation ABG Base Excess FiO2 Sodium Potassium Chloride Carbon Dioxide Anion Gap BUN Creatinine Est GFR ( Amer) Est GFR (Non-Af Amer) Glucose POC Glucose 113 H Lactic Acid Calcium Total Bilirubin Direct Bilirubin Neonat Total Bilirubin Neonat Direct Bilirubin Neonat Indirect Bili AST ALT Alkaline Phosphatase Creatine Kinase CK-MB (CK-2) Troponin I 0.019 NT-Pro-B Natriuret Pep Total Protein Albumin Urine Color COLORLESS Urine Appearance CLEAR Urine pH 5.0 Ur Specific Bromide 1.004 Urine Protein NEGATIVE Urine Glucose (UA) NEGATIVE Urine Ketones NEGATIVE Urine Blood NEGATIVE Urine Nitrite NEGATIVE Urine Bilirubin NEGATIVE Urine Urobilinogen NEGATIVE Ur Leukocyte Esterase NEGATIVE Urine WBC (Auto) 0 U Hyaline Cast (Auto) 4 Urine Bacteria (Auto) TRACE Urine Mucus (Auto) RARE Urine Ascorbic Acid NEGATIVE - Vital Signs Vital signs: Temp Pulse Resp BP Pulse Ox 97.7 F 60 17 129/61 H 100 04/19/18 21:30 04/19/18 21:30 04/19/18 21:30 04/19/18 21:30 04/19/18 21:30 - Laboratory Result Diagrams: 04/19/18 16:40 04/19/18 16:40 Laboratory results interpreted by me: 04/19/18 04/19/18 04/19/18 16:40 16:40 16:40 RBC 3.06 L Hgb 7.7 L Hct 25.2 L MCH 25.3 L MCHC 30.7 L RDW 17.1 H PT Carbonic Acid ABG pH ABG pCO2 ABG pO2 ABG HCO3 ABG Total CO2 ABG O2 Saturation Chloride 95 L Carbon Dioxide 38 H BUN 39 H Creatinine 1.72 H Est GFR ( Amer) 47 L Est GFR (Non-Af Amer) 39 L Glucose 131 H Creatine Kinase 53 L NT-Pro-B Natriuret Pep 3260 H 04/19/18 04/19/18 16:50 16:55 RBC Hgb Hct MCH MCHC RDW PT 17.9 H Carbonic Acid 1.95 H ABG pH 7.31 L ABG pCO2 64.9 H ABG pO2 125.3 H ABG HCO3 31.6 H ABG Total CO2 33.6 H ABG O2 Saturation 98.1 H Chloride Carbon Dioxide BUN Creatinine Est GFR ( Amer) Est GFR (Non-Af Amer) Glucose Creatine Kinase NT-Pro-B Natriuret Pep - EKG Interpretation by Me Additional EKG results interpreted by me: EKG demonstrates ventricular paced rhythm, with a rate of approximately 60 bpm, left axis deviation, QTC 446 ms, no evidence of acute ischemia on this EKG, this is compared with prior EKG from 03/05/2018, without significant change. Critical Care Note - Critical Care Note Total time excluding time spent on procedures (mins): 45 Comments: Critical care time 45 minutes exclusive from separate billable procedures for a patient requiring complex medical decision making, and high potential for clinical deterioration. In a patient requiring noninvasive positive pressure ventilation, for acute pulmonary edema and fluid overload. Time spent obtaining history from patient or surrogate, discussions with consultants, development of treatment plan with patient or surrogate, evaluation of patient's response to treatment, examination of patient, ordering and performing treatments and interventions, ordering and review of laboratory studies, re-evaluation of patient's condition, ordering and review of radiographic studies and review of old charts Discharge - Discharge Clinical Impression: Hypoxia, Cellulitis of abdominal wall, Acute respiratory acidosis Acute and chronic respiratory failure Qualifiers: Respiratory failure complication: hypoxia and hypercapnia Qualified Code(s): J96.21 - Acute and chronic respiratory failure with hypoxia; J96.22 - Acute and chronic respiratory failure with hypercapnia; J96.22 - Acute and chronic respiratory failure with hypercapnia; J96.22 - Acute and chronic respiratory failure with hypercapnia Acute exacerbation of CHF (congestive heart failure) Qualifiers: Heart failure type: unspecified Qualified Code(s): I50.9 - Heart failure, unspecified Condition: Stable Disposition: ADMITTED INPATIENT Admitting Provider: Hospitalist - Dr. Ramos Unit Admitted: [facility]
[2018-04-19 17:05] LABS: PARTIAL THROMBOPLASTIN TIME 35.7 SEC (23.5-35.8); PROTHROMBIN TIME 17.9 SEC (11.4-15.4)
[2018-04-19 17:09] LABS: ABSOLUTE EOSINOPHILS # (AUTO) 0.1 10^3/uL (0.0-0.6); ABSOLUTE MONOCYTES (AUTO) 0.6 10^3/uL (0.1-1.4); BASOPHILS % (AUTO) 0.6 % (0-2); EOSINOPHILS % (AUTO) 2.5 % (0-6); HEMATOCRIT 25.2 % (37.9-51.0); LYMPHOCYTES % (AUTO) 20.6 % (13-45); MEAN CORPUSCULAR HEMOGLOBIN 25.3 pg (27.0-33.4); MEAN CORPUSCULAR HGB CONC 30.7 g/dL (32.0-36.0); MEAN CORPUSCULAR VOLUME 82 fl (80-97); MONOCYTES % (AUTO) 12.6 % (3-13); PLATELET COUNT 244 10^3/uL (150-450); RED BLOOD COUNT 3.06 10^6/uL (4.35-5.55); RED CELL DISTRIBUTION WIDTH 17.1 % (11.5-14.0); SEGMENTED NEUTROPHILS % (AUTO) 63.7 % (42-78); TOTAL CELLS COUNTED % (AUTO) 100 %; WHITE BLOOD COUNT 4.7 10^3/uL (4.0-10.5)
[2018-04-19 17:31] LABS: ALANINE AMINOTRANSFERASE 43 U/L (21-72); ALBUMIN 3.6 g/dL (3.5-5.0); ALKALINE PHOSPHATASE 81 U/L (38-126); ANION GAP 6 (5-19); ASPARTATE AMINO TRANSFERASE 42 U/L (17-59); BILIRUBIN,DIRECT 0.3 mg/dL (0.0-0.4); BILIRUBIN,TOTAL 0.7 mg/dL (0.2-1.3); BLOOD UREA NITROGEN 39 mg/dL (7-20); CALCIUM 8.5 mg/dL (8.4-10.2); CARBON DIOXIDE 38 mmol/L (22-30); CHLORIDE 95 mmol/L (98-107); CREATINE KINASE 53 U/L (55-170); GLUCOSE 131 mg/dL (75-110); POTASSIUM 4.8 mmol/L (3.6-5.0); SODIUM 139.3 mmol/L (137-145); TOTAL PROTEIN 7.2 g/dL (6.3-8.2)
[2018-04-19] MEDS ORDERED: FUROSEMIDE INJ/PF 40 MG/4 ML SDV IV ONE (17:31)
--- NOTE | 2018-04-19 17:33 | RADIOLOGY REPORT (SQ) ---
EXAM DESCRIPTION: CHEST SINGLE VIEW COMPLETED DATE/TIME: 04/19/2018 5:21 pm REASON FOR STUDY: BED 10 DB COMPARISON: 03/08/2018 EXAM PARAMETERS: NUMBER OF VIEWS: One view. TECHNIQUE: Single frontal radiographic view of the chest acquired. RADIATION DOSE: NA LIMITATIONS: None. FINDINGS: LUNGS AND PLEURA: There is persistent left lower lobe airspace disease either atelectasis or pneumonia. There are small effusions. MEDIASTINUM AND HILAR STRUCTURES: No masses. Contour normal. HEART AND VASCULAR STRUCTURES: Heart remains enlarged. No failure. BONES: No acute findings. HARDWARE: Unchanged. Prior median sternotomy. Battery pack and leads are in place along with atrial clip. OTHER: No other significant finding. IMPRESSION: Cardiomegaly. Bibasilar airspace disease left greater than right most likely atelectasi s. Focal pneumonia in the left base cannot be excluded. There are small pleural effusions. TECHNICAL DOCUMENTATION: JOB ID: [id number] [employer]- All Rights Reserved Reading location - IP/workstation name: [email or web address]
[2018-04-19 17:35] LABS: ARTERIAL BLOOD BASE EXCESS 4.1 mmol/L; ARTERIAL BLOOD H2CO3 1.95 mmol/L (1.05-1.35); ARTERIAL BLOOD HCO3 31.6 mmol/L (20-24); ARTERIAL BLOOD O2 SATURATION 98.1 % (94-98); ARTERIAL BLOOD PCO2 64.9 mmHg (35-45); ARTERIAL BLOOD PH 7.31 (7.35-7.45); ARTERIAL BLOOD PO2 125.3 mmHg (80-100); ARTERIAL BLOOD TOTAL CO2 33.6 mmol/L (23-27)
[2018-04-19 17:36] LABS: ARTERIAL BLOOD FIO2 45%
[2018-04-19 17:43] LABS: CREATINE KINASE MB 1.59 ng/mL (<4.55); TROPONIN I 0.027 ng/mL
[2018-04-19] MEDS ORDERED: MAGNESIUM HYDROXIDE SUSP 30 ML UDCUP PO PRN (18:41)
[2018-04-19] MEDS ORDERED: PROMETHAZINE HCL 25 MG TABLET PO PRN (18:41)
[2018-04-19] MEDS ORDERED: MAG HYDROX/AL HYDROX/SIMETH SUSP 30 ML UDCUP PO PRN (18:41)
[2018-04-19] MEDS ORDERED: ACETAMINOPHEN 325 MG TABLET PO PRN (18:41)
[2018-04-19] MEDS ORDERED: DEXTROSE 50%-WATER 25 GM/50 ML DISP.SYRIN IV PRN ×2 (19:22)
[2018-04-19] MEDS ORDERED: GLUCAGON,HUMAN RECOMB 1 MG INJ IM PRN (19:22)
[2018-04-19] MEDS ORDERED: INSULIN LISPRO 100 UNIT/ML 3 ML VIAL SUBCUT PRN (19:22)
[2018-04-19] MEDS ORDERED: DEXTROSE 40% GEL 15 GM TUBE PO PRN ×2 (19:22)
[2018-04-19] MEDS ORDERED: VANCOMYCIN HCL 0 MG in DEXTROSE 5%-WATER 250 ML IV NR (19:30)
[2018-04-19] MEDS: BUDESONIDE NEB 0.5 MG/2 ML AMPUL NEB SCH (19:52)
[2018-04-19] MEDS: IPRATROPIUM/ALBUTEROL 0.5-2.5 MG/3 ML AMPUL NEB SCH (19:52)
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
[2018-04-19 21:01] LABS: APPEARANCE,URINE CLEAR; BILIRUBIN,URINE NEGATIVE (NEGATIVE); COLOR,URINE COLORLESS; GLUCOSE, URINE NEGATIVE (NEGATIVE); KETONES,URINE NEGATIVE (NEGATIVE); LEUKOCYTE ESTERASE,URINE NEGATIVE (NEGATIVE); NITRITE,URINE NEGATIVE (NEGATIVE); PROTEIN,URINE NEGATIVE (NEGATIVE); URINE SPECIFIC GRAVITY 1.004; UROBILINOGEN,URINE NEGATIVE mg/dL (<2.0)
[2018-04-19] MEDS: METOPROLOL TARTRATE 25 MG TABLET PO SCH (22:33)
[2018-04-19] MEDS: FUROSEMIDE INJ/PF 100 MG/10 ML SDV IV SCH (22:34)
[2018-04-19] MEDS: ATORVASTATIN CALCIUM 40 MG TABLET PO SCH (22:34)
--- NOTE | 2018-04-19 22:37 | EKG REPORT ---
SEVERITY:- ABNORMAL ECG - A-V DUAL-PACED COMPLEXES W/ SOME INHIBITION : Confirmed by: Farzana Still 19-Apr-2018 22:37:10
[2018-04-20] MEDS: PIPERACILLIN SODIUM/TAZOBACTAM 3.375 GM in NORMAL SALINE 100 ML IV SCH ×4 (00:03→18:46)
[2018-04-20] MEDS: IPRATROPIUM/ALBUTEROL 0.5-2.5 MG/3 ML AMPUL NEB SCH ×4 (02:21→19:51)
[2018-04-20 04:13] LABS: HEMATOCRIT 22.5 % (37.9-51.0); HEMOGLOBIN 7.2 g/dL (13.5-17.0); MEAN CORPUSCULAR HGB CONC 31.9 g/dL (32.0-36.0); MEAN CORPUSCULAR VOLUME 81 fl (80-97); PLATELET COUNT 228 10^3/uL (150-450); RED BLOOD COUNT 2.76 10^6/uL (4.35-5.55); RED CELL DISTRIBUTION WIDTH 16.9 % (11.5-14.0); WHITE BLOOD COUNT 4.8 10^3/uL (4.0-10.5)
[2018-04-20 04:25] LABS: TROPONIN I 0.026 ng/mL
[2018-04-20 04:51] LABS: ALANINE AMINOTRANSFERASE 37 U/L (21-72); ALBUMIN 3.1 g/dL (3.5-5.0); ALKALINE PHOSPHATASE 78 U/L (38-126); ANION GAP 7 (5-19); ASPARTATE AMINO TRANSFERASE 35 U/L (17-59); BILIRUBIN,DIRECT 0.3 mg/dL (0.0-0.4); BILIRUBIN,TOTAL 0.7 mg/dL (0.2-1.3); BLOOD UREA NITROGEN 39 mg/dL (7-20); CALCIUM 8.6 mg/dL (8.4-10.2); CARBON DIOXIDE 37 mmol/L (22-30); CHLORIDE 98 mmol/L (98-107); GLUCOSE 89 mg/dL (75-110); POTASSIUM 4.7 mmol/L (3.6-5.0); SODIUM 141.9 mmol/L (137-145); TOTAL PROTEIN 6.4 g/dL (6.3-8.2)
[2018-04-20 07:28] LABS: ARTERIAL BLOOD BASE EXCESS 5.7 mmol/L; ARTERIAL BLOOD HCO3 31.3 mmol/L (20-24); ARTERIAL BLOOD PCO2 53.2 mmHg (35-45); ARTERIAL BLOOD PH 7.39 (7.35-7.45); ARTERIAL BLOOD PO2 84.1 mmHg (80-100); ARTERIAL BLOOD TOTAL CO2 32.9 mmol/L (23-27)
[2018-04-20 07:29] LABS: ARTERIAL BLOOD FIO2 40%
[2018-04-20] MEDS: BUDESONIDE NEB 0.5 MG/2 ML AMPUL NEB SCH ×2 (08:00→19:51)
--- NOTE | 2018-04-20 09:24 | RADIOLOGY REPORT (SQ) ---
EXAM DESCRIPTION: CHEST SINGLE VIEW COMPLETED DATE/TIME: 04/20/2018 8:23 am REASON FOR STUDY: COPD, Pleural effusions, pneumonia COMPARISON: CT chest 01/11/2018 Two-view chest 01/17/2018, 03/05/2018, 03/08/2018, 04/19/2018 EXAM PARAMETERS: NUMBER OF VIEWS: One view. TECHNIQUE: Single frontal radiographic view of the chest acquired. RADIATION DOSE: NA LIMITATIONS: None. FINDINGS: LUNGS AND PLEURA: Persistent interstitial pulmonary edema with bibasilar atelectasis uncha nged. No pleural effusion. No pneumothorax. MEDIASTINUM AND HILAR STRUCTURES: No masses. Contour normal. HEART AND VASCULAR STRUCTURES: Stable marked cardiomegaly, old sternotomy with CABG BONES: No acute findings. HARDWARE: Right pacemaker OTHER: No other significant finding. IMPRESSION: Unchanged persistent interstitial pulmonary edema TECHNICAL DOCUMENTATION: JOB ID: [id number] [employer]- All Rights Reserved Reading location - IP/workstation name: [email or web address]
[2018-04-20 09:33] LABS: HEMOGLOBIN 7.7 g/dL (13.5-17.0)
[2018-04-20] MEDS: FUROSEMIDE INJ/PF 100 MG/10 ML SDV IV SCH ×2 (09:39→21:44)
[2018-04-20] MEDS: APIXABAN 5 MG TABLET PO SCH ×2 (09:40→17:47)
[2018-04-20] MEDS: METOPROLOL TARTRATE 25 MG TABLET PO SCH ×2 (09:40→21:44)
[2018-04-20] MEDS: DOCUSATE SODIUM 100 MG CAPSULE PO SCH ×2 (09:40→17:47)
[2018-04-20] MEDS: LOSARTAN POTASSIUM 25 MG TABLET PO SCH (09:40)
[2018-04-20] MEDS: ASPIRIN 81 MG TABLET, CHEWABLE PO SCH (09:40)
[2018-04-20] MEDS: SERTRALINE HCL 50 MG TABLET PO SCH (09:40)
[2018-04-20] MEDS: AMIODARONE HCL 200 MG TABLET PO SCH (09:40)
[2018-04-20] MEDS: GABAPENTIN 100 MG CAPSULE PO PRN (09:47)
[2018-04-20] MEDS: OXYCODONE-ACETAMINOPHEN 5-325 MG TABLET PO PRN ×2 (09:47→18:45)
[2018-04-20] MEDS ORDERED: METOLAZONE 5 MG TABLET PO SCH (10:00)
[2018-04-20] MEDS: VANCOMYCIN HCL 1,500 MG in DEXTROSE 5%-WATER 250 ML IV SCH (17:47)
[2018-04-20] MEDS: ATORVASTATIN CALCIUM 40 MG TABLET PO SCH (21:45)
--- NOTE | 2018-04-20 22:01 | PDOC PROGRESS REPORT ---
Subjective Progress Note for:: 04/20/18 Subjective:: Mr. Ness feels better today but still looks poorly. He is in slightly less respiratory distress. He is sitting at the edge of the bed with his nasal cannula in place and is off of the BiPAP at this time. He denies any chest pain or discomfort. He does feel that his swelling is improved and he does not have discomfort on the abdominal wall. Reason For Visit: ACUTE ON CHRONIC RESP FAILURE, CAD, CELLULITIS Physical Exam Vital Signs: Temp Pulse Resp BP Pulse Ox 97.6 F 59 L 26 H 99/47 L 92 04/20/18 19:30 04/20/18 19:30 04/20/18 19:30 04/20/18 19:30 04/20/18 19:30 Intake & Output 04/19/18 04/20/18 04/21/18 06:59 06:59 06:59 Intake Total 450 1013 Output Total 2770 825 Balance -2320 188 Weight 138.7 kg 136.7 kg General appearance: PRESENT: disheveled, mild distress, morbidly obese Head exam: PRESENT: atraumatic, normocephalic Eye exam: PRESENT: conjunctiva pale, EOMI. ABSENT: scleral icterus Ear exam: PRESENT: normal external ear exam Mouth exam: PRESENT: dry mucosa, tongue midline Neck exam: PRESENT: other - Patient is a very large neck.. ABSENT: lymphadenopathy, tenderness, thyromegaly Respiratory exam: PRESENT: decreased breath sounds, rales, symmetrical Cardiovascular exam: PRESENT: RRR, +S1, +S2, systolic murmur Pulses: PRESENT: normal radial pulses, other - Difficult to assess pedal pulses due to edema. Vascular exam: PRESENT: pallor GI/Abdominal exam: PRESENT: normal bowel sounds, soft, other - Protuberant abdomen. ABSENT: tenderness Rectal exam: PRESENT: deferred Gentrourinary exam: PRESENT: scrotal swelling. ABSENT: testicular tenderness Extremities exam: PRESENT: +2 edema Neurological exam: PRESENT: awake, oriented to person, oriented to place, oriented to situation, other Psychiatric exam: PRESENT: appropriate affect Skin exam: PRESENT: erythema - Lower extremities have some erythema and pigment deposition consistent with chronic venous insufficiency., pallor, other - Small ulcer anterior right lower leg has limited justin-ulcer erythema. The ulcer is shallow. There is serous drainage. Results Laboratory Results: 04/20/18 03:52 04/20/18 03:52 04/20/18 04/20/18 04/20/18 03:52 03:52 06:55 WBC 4.8 RBC 2.76 L Hgb 7.2 L Hct 22.5 L MCV 81 MCH 26.0 L MCHC 31.9 L RDW 16.9 H Plt Count 228 Carbonic Acid 1.60 H HCO3/H2CO3 Ratio 19:1 ABG pH 7.39 ABG pCO2 53.2 H ABG pO2 84.1 ABG HCO3 31.3 H ABG O2 Saturation 96.0 ABG Base Excess 5.7 FiO2 40% Sodium 141.9 Potassium 4.7 Chloride 98 Carbon Dioxide 37 H Anion Gap 7 BUN 39 H Creatinine 1.69 H Est GFR ( Amer) 48 L Est GFR (Non-Af Amer) 40 L Glucose 89 Calcium 8.6 Magnesium 2.2 Total Bilirubin 0.7 AST 35 ALT 37 Alkaline Phosphatase 78 Total Protein 6.4 Albumin 3.1 L 04/19/18 04/20/18 04/20/18 22:07 03:52 10:12 Troponin I 0.019 0.026 0.027 NT-Pro-B Natriuret Pep 3510 H Impressions: Chest X-Ray 04/20/18 06:00 IMPRESSION: Unchanged persistent interstitial pulmonary edema Assessment & Plan - Diagnosis (1) Acute and chronic respiratory failure Qualifiers: Respiratory failure complication: hypoxia and hypercapnia Qualified Code(s) : J96.21 - Acute and chronic respiratory failure with hypoxia; J96.22 - Acute and chronic respiratory failure with hypercapnia; J96.22 - Acute and chronic respiratory failure with hypercapnia; J96.22 - Acute and chronic respiratory failure with hypercapnia Is this a current diagnosis for this admission?: Yes Plan: Patient has a long history of chronic obstructive pulmonary disease and by documentation continues to smoke. He is on an inhaler at home. We will start the patient on DuoNeb therapy every 6 hours as well as budesonide every 12 hours. He will have as needed albuterol nebulizer therapy every 3 hours as well. He was placed on BiPAP in the emergency department and seems to be tolerating this. Current settings will be IPAP 16/APAP 5 with a rate of 10 and an FiO2 of 45%. We will wean the oxygen as tolerated. I will recheck a blood gas in the morning. 04/20 the patient is slightly better today. He seems to be tolerating windows off of his BiPAP (for instance to eat lunch) but still seems to be suffering from hypercapnia. He is most definitely improved from yesterday. We will continue to wean his oxygen and try to wean him from BiPAP therapy during the day. He most likely will need BiPAP at night. (2) Acute on chronic combined systolic and diastolic CHF (congestive heart failure) Is this a current diagnosis for this admission?: Yes Plan: It is difficult to know if the infection or exacerbation of COPD initiated the acute failure. Regardless, the patient will continue on his beta-tam as well as his angiotensin receptor tam. He will receive aggressive diuresis with furosemide 60 mg twice daily with the morning dose preceded by Zaroxolyn 5 mg. His serum potassium was in the upper range of normal today and I will recheck it tomorrow. He will likely need potassium supplementation with the aggressive diuresis. Another issue to consider is his anemia. His hemoglobin was only 7.7 on admission. This would predispose the patient to worsening failure and pulmonary edema. His x-ray however does not suggest such findings. With aggressive diuresis if his hemoglobin does not improve I will transfuse packed red blood cells to improve his oncotic pressure. Another consideration would be the addition of spironolactone for his chronic failure. His brain atretic peptide is elevated and I will repeat this study after a window of diuresis. He just had an echocardiogram in November with a normal ejection fraction but depending on his response to therapy consider repeating his echocardiogram. 04/20 as noted above the patient is improved today. He has noticed less edema in the legs. He is breathing is improved. I will continue his current increased furosemide dosing, monitor his electrolytes as well as his output. His hemoglobin is down to 7.2 and I have ordered type and screen and anticipate transfusing him tomorrow. His anemia certainly is contributing to his failure, anasarca and edema and correcting this will also help to improve his status. (3) Cellulitis of abdominal wall Is this a current diagnosis for this admission?: Yes Plan: The patient has marked erythema and tenderness across lower abdomen extending proximally above the umbilicus. There is no obvious open area. I will continue the Zosyn and vancomycin. In addition there are reddened areas on his leg with a small ulceration on the left leg. These areas are more likely stasis dermatitis. The pharmacy will dose his vancomycin per protocol. Even though his white blood cell count was normal the clinical appearance certainly suggests cellulitis. 04/20 there is significantly less erythema on the abdominal wall. There is no tenderness today. The patient is tolerating the Zosyn and vancomycin. I will likely continue his therapy for 7 days or possibly convert to oral antibiotics in another 2-3 days. He did ask about some "bumps" on the distal portion of the abdomen. These are irregular areas found along stretch guillen likely from chronic pressure from his abdomen and the increased swelling. (4) Atrial fibrillation Qualifiers: Atrial fibrillation type: paroxysmal Qualified Code(s): I48.0 - Paroxysmal atrial fibrillation Is this a current diagnosis for this admission?: Yes Plan: The patient has a history of chronic paroxysmal atrial fibrillation. Due to low voltage it was difficult to assess the rhythm. By auscultation he seemed to be in a sinus rhythm. We will continue his amiodarone 200 mg daily as well as his metoprolol 12.5 mg twice daily in addition to his apixaban 5 mg twice daily for chronic anticoagulation. 04/20 he is tolerating his amiodarone and metoprolol. There have not been any episodes of tachycardia. I will continue the same medications and make any adjustments that are required once I begin to decrease his furosemide dosing. Continue long-term anticoagulation. (5) Anemia Qualifiers: Anemia type: due to chronic kidney disease Chronic kidney disease stage: stage 3 (moderate) Qualified Code(s): N18.3 - Chronic kidney disease, stage 3 (moderate); D63.1 - Anemia in chronic kidney disease; D63.1 - Anemia in chronic kidney disease Is this a current diagnosis for this admission?: Yes Plan: The patient's hemoglobin is only 7.7. With his significant cardiac disease I would like to keep his hemoglobin at least greater than 8 and closer to 9. As noted above this will help with diuresis by increasing his oncotic pressure. Other possible etiologies would include anemia of chronic disease and his stage III chronic kidney failure. As noted above if his hemoglobin improves with aggressive diuresis then I will continue to monitor. If not then I will transfuse packed red blood cells for the reasons outlined above. 04/20 as noted above patient's hemoglobin is decreasing. I have ordered type and screen and will likely transfuse 2 units of packed red blood cells tomorrow morning. His MCV was low as well and so I have ordered iron studies for the morning. If sufficiently low the patient might benefit from intravenous iron with transition to oral supplementation. (6) Chronic anticoagulation Is this a current diagnosis for this admission?: Yes Plan: I will continue the patient's apixaban 5 mg every 12 hours. In addition to his atrial fibrillation I believe there is a history of pulmonary embolus. 04/20 I will continue the patient's apixaban despite his anemia. There is no obvious evidence of blood loss. He certainly is at high risk with his paroxysmal atrial fibrillation and history of pulmonary embolus warranting ongoing anticoagulation at this time.. (7) Stasis ulcer of left lower extremity Is this a current diagnosis for this admission?: Yes Plan: The patient has the shallow ulceration on his left leg in the distal pretibial area. This was present on admission. He is weeping serous fluid. I have asked that he keeps legs elevated when possible. At this point due to a lack of purulent drainage will apply a dry dressing to absorb any drainage. At some point the patient would likely benefit from compression therapy however in his current state I would worry about pushing too much fluid towards the lungs and his body would not be able to tolerate a rapid shift. - Time Time Spent with patient: 25-34 minutes Medications reviewed and adjusted accordingly: Yes Anticipated discharge: Home
[2018-04-21] MEDS: PIPERACILLIN SODIUM/TAZOBACTAM 3.375 GM in NORMAL SALINE 100 ML IV SCH ×4 (00:11→17:27)
[2018-04-21] MEDS: IPRATROPIUM/ALBUTEROL 0.5-2.5 MG/3 ML AMPUL NEB SCH ×4 (02:20→20:17)
[2018-04-21 05:05] LABS: ANION GAP 11 (5-19); BLOOD UREA NITROGEN 48 mg/dL (7-20); CALCIUM 8.5 mg/dL (8.4-10.2); CARBON DIOXIDE 35 mmol/L (22-30); CHLORIDE 95 mmol/L (98-107); GLUCOSE 89 mg/dL (75-110); IRON(TIBC) 10.2 ug/dL (49-181); POTASSIUM 5.2 mmol/L (3.6-5.0); SODIUM 141.1 mmol/L (137-145)
[2018-04-21 05:10] LABS: ABSOLUTE RETICS # 0.072 10^6/uL (0.028-0.122); HEMATOCRIT 22.4 % (37.9-51.0); MEAN CORPUSCULAR HEMOGLOBIN 25.8 pg (27.0-33.4); MEAN CORPUSCULAR HGB CONC 31.9 g/dL (32.0-36.0); MEAN CORPUSCULAR VOLUME 81 fl (80-97); PLATELET COUNT 220 10^3/uL (150-450); RED BLOOD COUNT 2.77 10^6/uL (4.35-5.55); RED CELL DISTRIBUTION WIDTH 16.7 % (11.5-14.0); RETICULOCYTE COUNT (AUTO) 2.61 % (0.66-2.85); WHITE BLOOD COUNT 4.5 10^3/uL (4.0-10.5)
[2018-04-21 05:19] LABS: HEMOGLOBIN 7.1 g/dL (13.5-17.0)
[2018-04-21] MEDS: OXYCODONE-ACETAMINOPHEN 5-325 MG TABLET PO PRN ×3 (07:51→22:05)
[2018-04-21] MEDS: GABAPENTIN 100 MG CAPSULE PO PRN ×2 (07:51→22:48)
[2018-04-21] MEDS ORDERED: METOLAZONE 5 MG TABLET PO SCH (08:00)
[2018-04-21] MEDS: BUDESONIDE NEB 0.5 MG/2 ML AMPUL NEB SCH ×2 (08:31→20:17)
[2018-04-21] MEDS: ASPIRIN 81 MG TABLET, CHEWABLE PO SCH (10:01)
[2018-04-21] MEDS: APIXABAN 5 MG TABLET PO SCH ×2 (10:01→17:27)
[2018-04-21] MEDS: AMIODARONE HCL 200 MG TABLET PO SCH (10:01)
[2018-04-21] MEDS: SERTRALINE HCL 50 MG TABLET PO SCH (10:01)
[2018-04-21] MEDS: DOCUSATE SODIUM 100 MG CAPSULE PO SCH ×2 (10:01→17:27)
[2018-04-21] MEDS: FUROSEMIDE INJ/PF 100 MG/10 ML SDV IV SCH (10:14)
[2018-04-21] MEDS: METOPROLOL TARTRATE 25 MG TABLET PO SCH ×2 (10:19→22:04)
[2018-04-21] MEDS: LOSARTAN POTASSIUM 25 MG TABLET PO SCH (10:19)
[2018-04-21] MEDS ORDERED: NORMAL SALINE 250 ML IV PRN ×2 (16:51)
[2018-04-21] MEDS: VANCOMYCIN HCL 1,500 MG in DEXTROSE 5%-WATER 250 ML IV SCH (18:49)
--- NOTE | 2018-04-21 21:03 | PDOC PROGRESS REPORT ---
Subjective Progress Note for:: 04/21/18 Subjective:: 04/20/2018-Mr. Ness feels better today but still looks poorly. He is in slightly less respiratory distress. He is sitting at the edge of the bed with his nasal cannula in place and is off of the BiPAP at this time. He denies any chest pain or discomfort. He does feel that his swelling is improved and he does not have discomfort on the abdominal wall. 04/21/2018-the patient is resting comfortably on nasal cannula. He is still dyspneic. He does report that he is feeling slightly better but still feels very weak. He still has significant edema. He does have increased pallor. Reason For Visit: ACUTE ON CHRONIC RESP FAILURE, CAD, CELLULITIS Physical Exam Vital Signs: Temp Pulse Resp BP Pulse Ox 97.7 F 60 16 128/99 H 95 04/21/18 19:30 04/21/18 20:00 04/21/18 20:00 04/21/18 19:30 04/21/18 20:00 Intake & Output 04/20/18 04/21/18 04/22/18 06:59 06:59 06:59 Intake Total 450 1563 1449 Output Total 2770 1500 550 Balance -2320 63 899 Weight 138.7 kg 143.4 kg General appearance: PRESENT: cooperative, disheveled, mild distress, morbidly obese Head exam: PRESENT: atraumatic, normocephalic Eye exam: PRESENT: conjunctiva pale, EOMI. ABSENT: scleral icterus Ear exam: PRESENT: normal external ear exam Mouth exam: PRESENT: moist, tongue midline Neck exam: ABSENT: carotid bruit, JVD - Difficult to assess with large neck, lymphadenopathy Respiratory exam: PRESENT: decreased breath sounds - At bases, rales, symmetrical. ABSENT: wheezes Cardiovascular exam: PRESENT: RRR, +S1, +S2, systolic murmur - 1/6 GI/Abdominal exam: PRESENT: distended - Protuberant abdomen, normal bowel sounds , soft. ABSENT: ascites, tenderness Extremities exam: PRESENT: +2 edema Neurological exam: PRESENT: awake - Awake but still appears somewhat sluggish., oriented to person, oriented to place, oriented to situation Psychiatric exam: PRESENT: appropriate affect, normal mood Skin exam: PRESENT: other - Dressing over the ulcer anterior left leg. Results Laboratory Results: 04/21/18 04:25 04/21/18 04:25 04/21/18 04/21/18 04/21/18 04:25 04:25 04:25 WBC 4.5 RBC 2.77 L Hgb 7.1 L Hct 22.4 L MCV 81 MCH 25.8 L MCHC 31.9 L RDW 16.7 H Plt Count 220 Retic Count (auto) 2.61 Absolute Retic 0.072 Sodium 141.1 Potassium 5.2 H Chloride 95 L Carbon Dioxide 35 H Anion Gap 11 BUN 48 H Creatinine 2.25 H Est GFR ( Amer) 35 L Est GFR (Non-Af Amer) 29 L Glucose 89 Calcium 8.5 Magnesium 2.2 Iron 10.2 L TIBC 383 % Saturation 3 Ferritin 33.00 Vitamin B12 424.0 Folate 14.00 Blood Type B POSITIVE Antibody Screen NEGATIVE 04/19/18 04/20/18 04/20/18 22:07 03:52 10:12 Troponin I 0.019 0.026 0.027 NT-Pro-B Natriuret Pep 3510 H Impressions: Chest X-Ray 04/20/18 06:00 IMPRESSION: Unchanged persistent interstitial pulmonary edema Assessment & Plan - Diagnosis (1) Acute and chronic respiratory failure Qualifiers: Respiratory failure complication: hypoxia and hypercapnia Qualified Code(s) : J96.21 - Acute and chronic respiratory failure with hypoxia; J96.22 - Acute and chronic respiratory failure with hypercapnia; J96.22 - Acute and chronic respiratory failure with hypercapnia; J96.22 - Acute and chronic respiratory failure with hypercapnia Is this a current diagnosis for this admission?: Yes Plan: Patient has a long history of chronic obstructive pulmonary disease and by documentation continues to smoke. He is on an inhaler at home. We will start the patient on DuoNeb therapy every 6 hours as well as budesonide every 12 hours. He will have as needed albuterol nebulizer therapy every 3 hours as well. He was placed on BiPAP in the emergency department and seems to be tolerating this. Current settings will be IPAP 16/APAP 5 with a rate of 10 and an FiO2 of 45%. We will wean the oxygen as tolerated. I will recheck a blood gas in the morning. 04/20 the patient is slightly better today. He seems to be tolerating windows off of his BiPAP (for instance to eat lunch) but still seems to be suffering from hypercapnia. He is most definitely improved from yesterday. We will continue to wean his oxygen and try to wean him from BiPAP therapy during the day. He most likely will need BiPAP at night. 04/21/2018-he continues to tolerate nasal cannula for periods of time. I have asked respiratory therapy to demonstrate and encourage incentive spirometry. Continue to wean oxygen as tolerated. Continue nebulizer therapy as ordered. (2) Acute on chronic combined systolic and diastolic CHF (congestive heart failure) Is this a current diagnosis for this admission?: Yes Plan: It is difficult to know if the infection or exacerbation of COPD initiated the acute failure. Regardless, the patient will continue on his beta-tam as well as his angiotensin receptor tam. He will receive aggressive diuresis with furosemide 60 mg twice daily with the morning dose preceded by Zaroxolyn 5 mg. His serum potassium was in the upper range of normal today and I will recheck it tomorrow. He will likely need potassium supplementation with the aggressive diuresis. Another issue to consider is his anemia. His hemoglobin was only 7.7 on admission. This would predispose the patient to worsening failure and pulmonary edema. His x-ray however does not suggest such findings. With aggressive diuresis if his hemoglobin does not improve I will transfuse packed red blood cells to improve his oncotic pressure. Another consideration would be the addition of spironolactone for his chronic failure. His brain atretic peptide is elevated and I will repeat this study after a window of diuresis. He just had an echocardiogram in November with a normal ejection fraction but depending on his response to therapy consider repeating his echocardiogram. 04/20 as noted above the patient is improved today. He has noticed less edema in the legs. He is breathing is improved. I will continue his current increased furosemide dosing, monitor his electrolytes as well as his output. His hemoglobin is down to 7.2 and I have ordered type and screen and anticipate transfusing him tomorrow. His anemia certainly is contributing to his failure, anasarca and edema and correcting this will also help to improve his status. 04/21/2018-patient does seem to be slowly improving. Because of his increased BUN and creatinine I have decreased the furosemide to 40 mg daily and the morning Zaroxolyn will be decreased to 2.5 mg. He is going to get 2 units of packed red blood cells. I explained that his significant anemia is likely contributing to his congestive heart failure and edema. I explained that the improved hemoglobin will help decrease his swelling and improve his breathing by increasing the oncotic pressure. Continue to assess daily with medication changes as indicated. (3) Cellulitis of abdominal wall Is this a current diagnosis for this admission?: Yes Plan: The patient has marked erythema and tenderness across lower abdomen extending proximally above the umbilicus. There is no obvious open area. I will continue the Zosyn and vancomycin. In addition there are reddened areas on his leg with a small ulceration on the left leg. These areas are more likely stasis dermatitis. The pharmacy will dose his vancomycin per protocol. Even though his white blood cell count was normal the clinical appearance certainly suggests cellulitis. 04/20 there is significantly less erythema on the abdominal wall. There is no tenderness today. The patient is tolerating the Zosyn and vancomycin. I will likely continue his therapy for 7 days or possibly convert to oral antibiotics in another 2-3 days. He did ask about some "bumps" on the distal portion of the abdomen. These are irregular areas found along stretch guillen likely from chronic pressure from his abdomen and the increased swelling. 04/21/2018-there is no tenderness in the abdominal wall today. The erythema is mostly resolved. Complete antibiotic therapy as ordered. (4) Atrial fibrillation Qualifiers: Atrial fibrillation type: paroxysmal Qualified Code(s): I48.0 - Paroxysmal atrial fibrillation Is this a current diagnosis for this admission?: Yes Plan: The patient has a history of chronic paroxysmal atrial fibrillation. Due to low voltage it was difficult to assess the rhythm. By auscultation he seemed to be in a sinus rhythm. We will continue his amiodarone 200 mg daily as well as his metoprolol 12.5 mg twice daily in addition to his apixaban 5 mg twice daily for chronic anticoagulation. 04/20 he is tolerating his amiodarone and metoprolol. There have not been any episodes of tachycardia. I will continue the same medications and make any adjustments that are required once I begin to decrease his furosemide dosing. Continue long-term anticoagulation. 04/21/2018-he is tolerating his amiodarone and metoprolol. They are very effective. We will continue his medications as ordered and make any changes if clinically indicated. (5) Anemia Qualifiers: Anemia type: due to chronic kidney disease Chronic kidney disease stage: stage 3 (moderate) Qualified Code(s): N18.3 - Chronic kidney disease, stage 3 (moderate); D63.1 - Anemia in chronic kidney disease; D63.1 - Anemia in chronic kidney disease Is this a current diagnosis for this admission?: Yes Plan: The patient's hemoglobin is only 7.7. With his significant cardiac disease I would like to keep his hemoglobin at least greater than 8 and closer to 9. As noted above this will help with diuresis by increasing his oncotic pressure. Other possible etiologies would include anemia of chronic disease and his stage III chronic kidney failure. As noted above if his hemoglobin improves with aggressive diuresis then I will continue to monitor. If not then I will transfuse packed red blood cells for the reasons outlined above. 04/20 as noted above patient's hemoglobin is decreasing. I have ordered type and screen and will likely transfuse 2 units of packed red blood cells tomorrow morning. His MCV was low as well and so I have ordered iron studies for the morning. If sufficiently low the patient might benefit from intravenous iron with transition to oral supplementation. 04/21/2018-patient's hemoglobin is down to 7.1. I explained to the patient and his family the benefits of the transfusion not only for the anemia but for his cardiac status and hopefully improved oxygenation of his kidneys. This should help with his kidney injury. In addition iron studies were ordered. His serum iron is only 10 with the normal being greater than 50. After the transfusion he should begin iron supplementation. With his chronic kidney disease it is possible to consider erythropoietin. (6) Chronic anticoagulation Is this a current diagnosis for this admission?: Yes Plan: I will continue the patient's apixaban 5 mg every 12 hours. In addition to his atrial fibrillation I believe there is a history of pulmonary embolus. 04/20 I will continue the patient's apixaban despite his anemia. There is no obvious evidence of blood loss. He certainly is at high risk with his paroxysmal atrial fibrillation and history of pulmonary embolus warranting ongoing anticoagulation at this time.. 04/21/2018-as noted above his significant anemia is not related to acute blood loss. We will therefore continue his anticoagulation. (7) Stasis ulcer of left lower extremity Is this a current diagnosis for this admission?: Yes Plan: The patient has the shallow ulceration on his left leg in the distal pretibial area. This was present on admission. He is weeping serous fluid. I have asked that he keeps legs elevated when possible. At this point due to a lack of purulent drainage will apply a dry dressing to absorb any drainage. At some point the patient would likely benefit from compression therapy however in his current state I would worry about pushing too much fluid towards the lungs and his body would not be able to tolerate a rapid shift. 04/21/2018-reason conservative therapy. With his slowly improving edema there is less weeping from the ulcer. We will continue to elevate the legs when possible. He is likely not a very good candidate for compression therapy given his cardiac status. - Time Time Spent with patient: 25-34 minutes Medications reviewed and adjusted accordingly: Yes
[2018-04-21] MEDS ORDERED: FUROSEMIDE INJ/PF 40 MG/4 ML SDV IV SCH (22:00)
[2018-04-21] MEDS ORDERED: FUROSEMIDE INJ/PF 100 MG/10 ML SDV IV SCH (22:00)
[2018-04-21] MEDS: ATORVASTATIN CALCIUM 40 MG TABLET PO SCH (22:04)
[2018-04-22] MEDS: PIPERACILLIN SODIUM/TAZOBACTAM 3.375 GM in NORMAL SALINE 100 ML IV SCH ×4 (01:08→17:52)
[2018-04-22] MEDS: OXYCODONE-ACETAMINOPHEN 5-325 MG TABLET PO PRN ×4 (02:16→18:24)
[2018-04-22] MEDS: IPRATROPIUM/ALBUTEROL 0.5-2.5 MG/3 ML AMPUL NEB SCH ×4 (02:23→20:04)
[2018-04-22 06:41] LABS: ABSOLUTE BASOPHILS # (AUTO) 0.1 10^3/uL (0.0-0.2); ABSOLUTE EOSINOPHILS # (AUTO) 0.2 10^3/uL (0.0-0.6); ABSOLUTE LYMPHOCYTES (AUTO) 1.1 10^3/uL (0.5-4.7); ABSOLUTE MONOCYTES (AUTO) 0.6 10^3/uL (0.1-1.4); ABSOLUTE NEUT (AUTO) 3.3 10^3/uL (1.7-8.2); EOSINOPHILS % (AUTO) 4.1 % (0-6); HEMATOCRIT 26.1 % (37.9-51.0); HEMOGLOBIN 8.5 g/dL (13.5-17.0); LYMPHOCYTES % (AUTO) 21.3 % (13-45); MEAN CORPUSCULAR HEMOGLOBIN 26.5 pg (27.0-33.4); MEAN CORPUSCULAR HGB CONC 32.5 g/dL (32.0-36.0); MEAN CORPUSCULAR VOLUME 81 fl (80-97); MONOCYTES % (AUTO) 11.8 % (3-13); PLATELET COUNT 236 10^3/uL (150-450); RED CELL DISTRIBUTION WIDTH 16.7 % (11.5-14.0); SEGMENTED NEUTROPHILS % (AUTO) 61.8 % (42-78); TOTAL CELLS COUNTED % (AUTO) 100 %; WHITE BLOOD COUNT 5.4 10^3/uL (4.0-10.5)
[2018-04-22 06:54] LABS: ALBUMIN 3.6 g/dL (3.5-5.0); ANION GAP 10 (5-19); BLOOD UREA NITROGEN 51 mg/dL (7-20); CALCIUM 8.4 mg/dL (8.4-10.2); CARBON DIOXIDE 37 mmol/L (22-30); CHLORIDE 93 mmol/L (98-107); GLUCOSE 93 mg/dL (75-110); PHOSPHORUS 5.3 mg/dL (2.5-4.5); POTASSIUM 4.8 mmol/L (3.6-5.0); SODIUM 139.5 mmol/L (137-145)
[2018-04-22] MEDS: BUDESONIDE NEB 0.5 MG/2 ML AMPUL NEB SCH ×2 (08:02→20:04)
[2018-04-22] MEDS: LOSARTAN POTASSIUM 25 MG TABLET PO SCH (09:49)
[2018-04-22] MEDS: SERTRALINE HCL 50 MG TABLET PO SCH (09:50)
[2018-04-22] MEDS: APIXABAN 5 MG TABLET PO SCH ×2 (09:50→17:52)
[2018-04-22] MEDS: METOPROLOL TARTRATE 25 MG TABLET PO SCH ×2 (09:50→21:45)
[2018-04-22] MEDS: DOCUSATE SODIUM 100 MG CAPSULE PO SCH ×2 (09:50→17:52)
[2018-04-22] MEDS: FUROSEMIDE INJ/PF 40 MG/4 ML SDV IV SCH (09:50)
[2018-04-22] MEDS: ASPIRIN 81 MG TABLET, CHEWABLE PO SCH (09:51)
[2018-04-22] MEDS: AMIODARONE HCL 200 MG TABLET PO SCH (09:52)
[2018-04-22] MEDS: METOLAZONE 5 MG TABLET PO SCH (09:52)
--- NOTE | 2018-04-22 11:54 | PDOC PROGRESS REPORT ---
Subjective Progress Note for:: 04/22/18 Subjective:: Doing better. Drinking a lot of fluids. Stay with lower extremity swelling. No orthopnea or PND. Reason For Visit: ACUTE ON CHRONIC RESP FAILURE, CAD, CELLULITIS Physical Exam Vital Signs: Temp Pulse Resp BP Pulse Ox 97.4 F 72 18 108/56 L 100 04/22/18 07:33 04/22/18 08:05 04/22/18 08:05 04/22/18 07:33 04/22/18 09:55 Intake & Output 04/21/18 04/22/18 04/23/18 06:59 06:59 06:59 Intake Total 1563 2603 350 Output Total 1500 950 Balance 63 1653 350 Weight 143.4 kg 145 kg General appearance: PRESENT: cooperative, disheveled, mild distress, morbidly obese Head exam: PRESENT: atraumatic, normocephalic Eye exam: PRESENT: conjunctiva pale, EOMI. ABSENT: scleral icterus Ear exam: PRESENT: normal external ear exam Mouth exam: PRESENT: moist, tongue midline Neck exam: ABSENT: carotid bruit, JVD - Difficult to assess with large neck, lymphadenopathy Respiratory exam: PRESENT: decreased breath sounds - At bases, rales, symmetrical. ABSENT: wheezes Cardiovascular exam: PRESENT: RRR, +S1, +S2, systolic murmur - 1/6 GI/Abdominal exam: PRESENT: distended - Protuberant abdomen, normal bowel sounds , soft. ABSENT: ascites, tenderness Extremities exam: PRESENT: +2 edema Neurological exam: PRESENT: awake - Awake but still appears somewhat sluggish., oriented to person, oriented to place, oriented to situation Psychiatric exam: PRESENT: appropriate affect, normal mood Skin exam: PRESENT: other - Dressing over the ulcer anterior left leg. Results Laboratory Results: 04/22/18 06:32 04/22/18 06:32 04/21/18 04/22/18 04/22/18 04:25 06:32 06:32 WBC 5.4 RBC 3.20 L Hgb 8.5 L Hct 26.1 L MCV 81 MCH 26.5 L MCHC 32.5 RDW 16.7 H Plt Count 236 Seg Neutrophils % 61.8 Lymphocytes % 21.3 Monocytes % 11.8 Eosinophils % 4.1 Basophils % 1.0 Absolute Neutrophils 3.3 Absolute Lymphocytes 1.1 Absolute Monocytes 0.6 Absolute Eosinophils 0.2 Absolute Basophils 0.1 Sodium 139.5 Potassium 4.8 Chloride 93 L Carbon Dioxide 37 H Anion Gap 10 BUN 51 H Creatinine 2.47 H Est GFR ( Amer) 31 L Est GFR (Non-Af Amer) 26 L Glucose 93 Calcium 8.4 Phosphorus 5.3 H Magnesium 2.3 Albumin 3.6 Blood Type B POSITIVE Antibody Screen NEGATIVE 04/19/18 04/20/18 04/20/18 22:07 03:52 10:12 Troponin I 0.019 0.026 0.027 NT-Pro-B Natriuret Pep 3510 H Impressions: Chest X-Ray 04/20/18 06:00 IMPRESSION: Unchanged persistent interstitial pulmonary edema Assessment & Plan - Diagnosis (1) Acute and chronic respiratory failure Qualifiers: Respiratory failure complication: hypoxia and hypercapnia Qualified Code(s) : J96.21 - Acute and chronic respiratory failure with hypoxia; J96.22 - Acute and chronic respiratory failure with hypercapnia; J96.22 - Acute and chronic respiratory failure with hypercapnia; J96.22 - Acute and chronic respiratory failure with hypercapnia Is this a current diagnosis for this admission?: Yes (2) Cellulitis of abdominal wall Is this a current diagnosis for this admission?: Yes (3) Acute on chronic combined systolic and diastolic CHF (congestive heart failure) Is this a current diagnosis for this admission?: Yes (4) Anemia Qualifiers: Anemia type: due to chronic kidney disease Chronic kidney disease stage: stage 3 (moderate) Qualified Code(s): N18.3 - Chronic kidney disease, stage 3 (moderate); D63.1 - Anemia in chronic kidney disease; D63.1 - Anemia in chronic kidney disease Is this a current diagnosis for this admission?: Yes (5) Atrial fibrillation Qualifiers: Atrial fibrillation type: paroxysmal Qualified Code(s): I48.0 - Paroxysmal atrial fibrillation Is this a current diagnosis for this admission?: Yes (6) Morbid obesity with BMI of 40.0-44.9, adult Is this a current diagnosis for this admission?: Yes - Plan Summary Plan Summary: For CHF, patient on Lasix 40 mg IV daily and Zaroxolyn 2.5 milligrams. However creatinine up. Will monitor and decrease Lasix if continues to climb. Also, patient amount of fluid restriction. Will fluid restrict at 1 L by day. Cellulitis looks improved. Will complete antibiotic course. A. fib is paroxysmal. Continue anticoagulation. Continue medical management otherwise.
[2018-04-22] MEDS: VANCOMYCIN HCL 1,500 MG in DEXTROSE 5%-WATER 250 ML IV SCH (18:24)
[2018-04-22 18:31] LABS: VANCOMYCIN,TROUGH 14.2 ug/mL (5.0-20.0)
[2018-04-22] MEDS: ATORVASTATIN CALCIUM 40 MG TABLET PO SCH (21:44)
[2018-04-23] MEDS: PIPERACILLIN SODIUM/TAZOBACTAM 3.375 GM in NORMAL SALINE 100 ML IV SCH ×4 (00:51→17:22)
[2018-04-23] MEDS: OXYCODONE-ACETAMINOPHEN 5-325 MG TABLET PO PRN ×3 (00:56→21:55)
[2018-04-23] MEDS: IPRATROPIUM/ALBUTEROL 0.5-2.5 MG/3 ML AMPUL NEB SCH ×4 (02:17→19:48)
[2018-04-23 04:54] LABS: ABSOLUTE EOSINOPHILS # (AUTO) 0.2 10^3/uL (0.0-0.6); ABSOLUTE LYMPHOCYTES (AUTO) 0.9 10^3/uL (0.5-4.7); ABSOLUTE MONOCYTES (AUTO) 0.7 10^3/uL (0.1-1.4); ABSOLUTE NEUT (AUTO) 3.2 10^3/uL (1.7-8.2); BASOPHILS % (AUTO) 0.7 % (0-2); EOSINOPHILS % (AUTO) 3.7 % (0-6); HEMATOCRIT 25.2 % (37.9-51.0); HEMOGLOBIN 8.1 g/dL (13.5-17.0); LYMPHOCYTES % (AUTO) 17.6 % (13-45); MEAN CORPUSCULAR HEMOGLOBIN 26.3 pg (27.0-33.4); MEAN CORPUSCULAR VOLUME 82 fl (80-97); MONOCYTES % (AUTO) 14.3 % (3-13); PLATELET COUNT 222 10^3/uL (150-450); RED BLOOD COUNT 3.07 10^6/uL (4.35-5.55); RED CELL DISTRIBUTION WIDTH 16.8 % (11.5-14.0); SEGMENTED NEUTROPHILS % (AUTO) 63.7 % (42-78); TOTAL CELLS COUNTED % (AUTO) 100 %; WHITE BLOOD COUNT 5.1 10^3/uL (4.0-10.5)
[2018-04-23 05:40] LABS: ANION GAP 11 (5-19); BLOOD UREA NITROGEN 52 mg/dL (7-20); CALCIUM 8.4 mg/dL (8.4-10.2); CARBON DIOXIDE 37 mmol/L (22-30); CHLORIDE 91 mmol/L (98-107); GLUCOSE 116 mg/dL (75-110); POTASSIUM 4.5 mmol/L (3.6-5.0)
[2018-04-23] MEDS: BUDESONIDE NEB 0.5 MG/2 ML AMPUL NEB SCH ×2 (07:58→19:48)
[2018-04-23] MEDS: DOCUSATE SODIUM 100 MG CAPSULE PO SCH ×2 (09:28→17:21)
[2018-04-23] MEDS: AMIODARONE HCL 200 MG TABLET PO SCH (09:28)
[2018-04-23] MEDS: FUROSEMIDE INJ/PF 40 MG/4 ML SDV IV SCH (09:28)
[2018-04-23] MEDS: ASPIRIN 81 MG TABLET, CHEWABLE PO SCH (09:28)
[2018-04-23] MEDS: METOLAZONE 5 MG TABLET PO SCH (09:28)
[2018-04-23] MEDS: METOPROLOL TARTRATE 25 MG TABLET PO SCH (09:28)
[2018-04-23] MEDS: APIXABAN 5 MG TABLET PO SCH ×2 (09:28→17:21)
[2018-04-23] MEDS: SERTRALINE HCL 50 MG TABLET PO SCH (09:28)
--- NOTE | 2018-04-23 11:02 | PDOC PROGRESS REPORT ---
Subjective Progress Note for:: 04/23/18 Subjective:: Doing better. Drinking less fluids now. Still with lower extremity swelling. No orthopnea or PND, no fever or chills. Son at bedside. Reason For Visit: ACUTE ON CHRONIC RESP FAILURE, CAD, CELLULITIS Physical Exam Vital Signs: Temp Pulse Resp BP Pulse Ox 97.7 F 75 16 94/43 L 96 04/23/18 07:28 04/23/18 08:00 04/23/18 08:00 04/23/18 07:28 04/23/18 08:00 Intake & Output 04/22/18 04/23/18 04/24/18 06:59 06:59 06:59 Intake Total 2603 1610 100 Output Total 950 2600 Balance 1653 -990 100 Weight 145 kg 145.5 kg General appearance: PRESENT: cooperative, disheveled, mild distress, morbidly obese Head exam: PRESENT: atraumatic, normocephalic Eye exam: PRESENT: conjunctiva pale, EOMI. ABSENT: scleral icterus Ear exam: PRESENT: normal external ear exam Mouth exam: PRESENT: moist, tongue midline Neck exam: ABSENT: carotid bruit, JVD - Difficult to assess with large neck, lymphadenopathy Respiratory exam: PRESENT: decreased breath sounds - At bases, rales, symmetrical. ABSENT: wheezes Cardiovascular exam: PRESENT: RRR, +S1, +S2, systolic murmur - 1/6 GI/Abdominal exam: PRESENT: Protuberant abdomen, normal bowel sounds, soft. ABSENT: ascites, tenderness Extremities exam: PRESENT: +2 edema Neurological exam: PRESENT: awake - Awake but still appears somewhat sluggish., oriented to person, oriented to place, oriented to situation Psychiatric exam: PRESENT: appropriate affect, normal mood Skin exam: PRESENT: other - Dressing over the ulcer anterior left leg clean, dry , intact. Results Laboratory Results: 04/23/18 04:11 04/23/18 04:11 04/22/18 04/23/18 04/23/18 17:47 04:11 04:11 WBC 5.1 RBC 3.07 L Hgb 8.1 L Hct 25.2 L MCV 82 MCH 26.3 L MCHC 32.0 RDW 16.8 H Plt Count 222 Seg Neutrophils % 63.7 Lymphocytes % 17.6 Monocytes % 14.3 H Eosinophils % 3.7 Basophils % 0.7 Absolute Neutrophils 3.2 Absolute Lymphocytes 0.9 Absolute Monocytes 0.7 Absolute Eosinophils 0.2 Absolute Basophils 0.0 Sodium 139.0 Potassium 4.5 Chloride 91 L Carbon Dioxide 37 H Anion Gap 11 BUN 52 H Creatinine 2.31 H 2.49 H Est GFR ( Amer) 34 L 31 L Est GFR (Non-Af Amer) 28 L 26 L Glucose 116 H Calcium 8.4 04/19/18 04/20/18 04/20/18 22:07 03:52 10:12 Troponin I 0.019 0.026 0.027 NT-Pro-B Natriuret Pep 3510 H Impressions: Chest X-Ray 04/20/18 06:00 IMPRESSION: Unchanged persistent interstitial pulmonary edema Assessment & Plan - Diagnosis (1) Acute and chronic respiratory failure Qualifiers: Respiratory failure complication: hypoxia and hypercapnia Qualified Code(s) : J96.21 - Acute and chronic respiratory failure with hypoxia; J96.22 - Acute and chronic respiratory failure with hypercapnia; J96.22 - Acute and chronic respiratory failure with hypercapnia; J96.22 - Acute and chronic respiratory failure with hypercapnia Is this a current diagnosis for this admission?: Yes (2) Cellulitis of abdominal wall Is this a current diagnosis for this admission?: Yes (3) Acute on chronic combined systolic and diastolic CHF (congestive heart failure) Is this a current diagnosis for this admission?: Yes (4) Anemia Qualifiers: Anemia type: due to chronic kidney disease Chronic kidney disease stage: stage 3 (moderate) Qualified Code(s): N18.3 - Chronic kidney disease, stage 3 (moderate); D63.1 - Anemia in chronic kidney disease; D63.1 - Anemia in chronic kidney disease Is this a current diagnosis for this admission?: Yes (5) Atrial fibrillation Qualifiers: Atrial fibrillation type: paroxysmal Qualified Code(s): I48.0 - Paroxysmal atrial fibrillation Is this a current diagnosis for this admission?: Yes (6) Morbid obesity with BMI of 40.0-44.9, adult Is this a current diagnosis for this admission?: Yes - Plan Summary Plan Summary: For CHF, will continue on Lasix 40 mg IV daily and Zaroxolyn 2.5 mg daily for now as creatinine stable. Will continue to monitor. Also, patient was not on fluid restriction until yesterday. Will continue to fluid restrict at 1 L by day. For Cellulitis, complete antibiotic course. A. fib is paroxysmal. Continue anticoagulation. Continue medical management otherwise. Possible discharge home in a.m.
[2018-04-23] MEDS: VANCOMYCIN HCL 1,500 MG in DEXTROSE 5%-WATER 250 ML IV SCH (18:28)
[2018-04-23] MEDS: ATORVASTATIN CALCIUM 40 MG TABLET PO SCH (21:55)
[2018-04-24] MEDS: PIPERACILLIN SODIUM/TAZOBACTAM 3.375 GM in NORMAL SALINE 100 ML IV SCH ×4 (00:21→17:21)
[2018-04-24] MEDS: IPRATROPIUM/ALBUTEROL 0.5-2.5 MG/3 ML AMPUL NEB SCH ×4 (03:07→19:44)
[2018-04-24] MEDS: OXYCODONE-ACETAMINOPHEN 5-325 MG TABLET PO PRN ×4 (03:21→21:56)
[2018-04-24 06:50] LABS: ABSOLUTE BASOPHILS # (AUTO) 0.1 10^3/uL (0.0-0.2); ABSOLUTE EOSINOPHILS # (AUTO) 0.2 10^3/uL (0.0-0.6); ABSOLUTE LYMPHOCYTES (AUTO) 1.1 10^3/uL (0.5-4.7); ABSOLUTE MONOCYTES (AUTO) 0.5 10^3/uL (0.1-1.4); ABSOLUTE NEUT (AUTO) 2.8 10^3/uL (1.7-8.2); BASOPHILS % (AUTO) 1.1 % (0-2); EOSINOPHILS % (AUTO) 3.3 % (0-6); HEMATOCRIT 25.1 % (37.9-51.0); HEMOGLOBIN 8.1 g/dL (13.5-17.0); LYMPHOCYTES % (AUTO) 23.5 % (13-45); MEAN CORPUSCULAR HEMOGLOBIN 26.7 pg (27.0-33.4); MEAN CORPUSCULAR HGB CONC 32.5 g/dL (32.0-36.0); MEAN CORPUSCULAR VOLUME 82 fl (80-97); MONOCYTES % (AUTO) 11.5 % (3-13); PLATELET COUNT 222 10^3/uL (150-450); RED BLOOD COUNT 3.05 10^6/uL (4.35-5.55); RED CELL DISTRIBUTION WIDTH 17.4 % (11.5-14.0); SEGMENTED NEUTROPHILS % (AUTO) 60.6 % (42-78); TOTAL CELLS COUNTED % (AUTO) 100 %; WHITE BLOOD COUNT 4.7 10^3/uL (4.0-10.5)
[2018-04-24 07:15] LABS: ANION GAP 10 (5-19); BLOOD UREA NITROGEN 57 mg/dL (7-20); CALCIUM 8.5 mg/dL (8.4-10.2); CARBON DIOXIDE 38 mmol/L (22-30); CHLORIDE 92 mmol/L (98-107); GLUCOSE 87 mg/dL (75-110); POTASSIUM 4.1 mmol/L (3.6-5.0); SODIUM 139.7 mmol/L (137-145)
[2018-04-24] MEDS: BUDESONIDE NEB 0.5 MG/2 ML AMPUL NEB SCH ×2 (07:56→19:44)
[2018-04-24] MEDS: SERTRALINE HCL 50 MG TABLET PO SCH (10:06)
[2018-04-24] MEDS: ASPIRIN 81 MG TABLET, CHEWABLE PO SCH (10:06)
[2018-04-24] MEDS: DOCUSATE SODIUM 100 MG CAPSULE PO SCH ×2 (10:06→17:21)
[2018-04-24] MEDS: FUROSEMIDE INJ/PF 40 MG/4 ML SDV IV SCH (10:06)
[2018-04-24] MEDS: APIXABAN 5 MG TABLET PO SCH ×2 (10:06→17:21)
[2018-04-24] MEDS: METOLAZONE 5 MG TABLET PO SCH (10:06)
[2018-04-24] MEDS: AMIODARONE HCL 200 MG TABLET PO SCH (10:06)
--- NOTE | 2018-04-24 12:48 | PDOC PROGRESS REPORT ---
Subjective Progress Note for:: 04/24/18 Subjective:: 72-year-old male with recurrent hospitalization, with acute on chronic respiratory failure/CHF exacerbation. Patient reports slowly getting better. Trying to drink less fluids. Still with lower extremity swelling, but slowly improving. Feels his testicles are still very swollen. No orthopnea or PND, no fever or chills. Son at bedside. Reason For Visit: ACUTE ON CHRONIC RESP FAILURE, CAD, CELLULITIS Physical Exam Vital Signs: Temp Pulse Resp BP Pulse Ox 97.8 F 59 L 21 H 107/55 L 90 L 04/24/18 07:17 04/24/18 07:56 04/24/18 07:56 04/24/18 07:17 04/24/18 07:56 Intake & Output 04/23/18 04/24/18 04/25/18 06:59 06:59 06:59 Intake Total 1610 1172 100 Output Total 2600 1825 Balance -990 -653 100 Weight 145.5 kg 145.3 kg General appearance: PRESENT: cooperative, disheveled, mild distress, morbidly obese Head exam: PRESENT: atraumatic, normocephalic Eye exam: PRESENT: conjunctiva pale, EOMI. ABSENT: scleral icterus Ear exam: PRESENT: normal external ear exam Mouth exam: PRESENT: moist, tongue midline Neck exam: ABSENT: carotid bruit, JVD - Difficult to assess with large neck, lymphadenopathy Respiratory exam: PRESENT: decreased breath sounds - At bases, rales, symmetrical. ABSENT: wheezes Cardiovascular exam: PRESENT: RRR, +S1, +S2, systolic murmur - 1/6 GI/Abdominal exam: PRESENT: Protuberant abdomen, normal bowel sounds, soft. ABSENT: ascites, tenderness Extremities exam: PRESENT: +2 edema Neurological exam: PRESENT: awake - Awake but still appears somewhat sluggish., oriented to person, oriented to place, oriented to situation Psychiatric exam: PRESENT: appropriate affect, normal mood Skin exam: PRESENT: other - Dressing over the ulcer anterior left leg clean, dry , intact. Results Laboratory Results: 04/24/18 06:32 04/24/18 06:32 04/24/18 04/24/18 06:32 06:32 WBC 4.7 RBC 3.05 L Hgb 8.1 L Hct 25.1 L MCV 82 MCH 26.7 L MCHC 32.5 RDW 17.4 H Plt Count 222 Seg Neutrophils % 60.6 Lymphocytes % 23.5 Monocytes % 11.5 Eosinophils % 3.3 Basophils % 1.1 Absolute Neutrophils 2.8 Absolute Lymphocytes 1.1 Absolute Monocytes 0.5 Absolute Eosinophils 0.2 Absolute Basophils 0.1 Sodium 139.7 Potassium 4.1 Chloride 92 L Carbon Dioxide 38 H Anion Gap 10 BUN 57 H Creatinine 2.29 H Est GFR ( Amer) 34 L Est GFR (Non-Af Amer) 28 L Glucose 87 Calcium 8.5 04/19/18 04/20/18 04/20/18 22:07 03:52 10:12 Troponin I 0.019 0.026 0.027 NT-Pro-B Natriuret Pep 3510 H Impressions: Chest X-Ray 04/20/18 06:00 IMPRESSION: Unchanged persistent interstitial pulmonary edema Assessment & Plan - Diagnosis (1) Acute and chronic respiratory failure Qualifiers: Respiratory failure complication: hypoxia and hypercapnia Qualified Code(s) : J96.21 - Acute and chronic respiratory failure with hypoxia; J96.22 - Acute and chronic respiratory failure with hypercapnia; J96.22 - Acute and chronic respiratory failure with hypercapnia; J96.22 - Acute and chronic respiratory failure with hypercapnia Is this a current diagnosis for this admission?: Yes (2) Cellulitis of abdominal wall Is this a current diagnosis for this admission?: Yes (3) Acute on chronic combined systolic and diastolic CHF (congestive heart failure) Is this a current diagnosis for this admission?: Yes (4) Anemia Qualifiers: Anemia type: due to chronic kidney disease Chronic kidney disease stage: stage 3 (moderate) Qualified Code(s): N18.3 - Chronic kidney disease, stage 3 (moderate); D63.1 - Anemia in chronic kidney disease; D63.1 - Anemia in chronic kidney disease Is this a current diagnosis for this admission?: Yes (5) Atrial fibrillation Qualifiers: Atrial fibrillation type: paroxysmal Qualified Code(s): I48.0 - Paroxysmal atrial fibrillation Is this a current diagnosis for this admission?: Yes (6) Morbid obesity with BMI of 40.0-44.9, adult Is this a current diagnosis for this admission?: Yes - Plan Summary Plan Summary: For CHF, will continue Lasix 40 mg IV daily and Zaroxolyn 2.5 mg daily for now as creatinine stable. Will continue to monitor. Also, patient was placed on fluid restriction. Will continue to fluid restrict at 1 L daily for now. For Cellulitis, blood cultures negative. Will transition Vanco and Zosyn to Augmentin 875 mg twice daily for 2 additional days of antibiotics. A. fib is paroxysmal. Continue anticoagulation. Continue medical management otherwise. Possible discharge home in next day or 2.
[2018-04-24] MEDS: VANCOMYCIN HCL 1,500 MG in DEXTROSE 5%-WATER 250 ML IV SCH (17:58)
[2018-04-24] MEDS: ATORVASTATIN CALCIUM 40 MG TABLET PO SCH (21:10)
[2018-04-25] MEDS: PIPERACILLIN SODIUM/TAZOBACTAM 3.375 GM in NORMAL SALINE 100 ML IV SCH ×2 (00:10→05:06)
[2018-04-25] MEDS: IPRATROPIUM/ALBUTEROL 0.5-2.5 MG/3 ML AMPUL NEB SCH ×2 (02:04→08:22)
[2018-04-25] MEDS: OXYCODONE-ACETAMINOPHEN 5-325 MG TABLET PO PRN ×2 (06:09→10:43)
[2018-04-25] MEDS: BUDESONIDE NEB 0.5 MG/2 ML AMPUL NEB SCH ×2 (08:25→20:28)
[2018-04-25] MEDS: APIXABAN 5 MG TABLET PO SCH ×2 (09:06→17:44)
[2018-04-25] MEDS: AMIODARONE HCL 200 MG TABLET PO SCH (09:06)
[2018-04-25] MEDS: METOLAZONE 5 MG TABLET PO SCH (09:06)
[2018-04-25] MEDS: DOCUSATE SODIUM 100 MG CAPSULE PO SCH ×2 (09:06→17:44)
[2018-04-25] MEDS: ASPIRIN 81 MG TABLET, CHEWABLE PO SCH (09:07)
[2018-04-25] MEDS: SERTRALINE HCL 50 MG TABLET PO SCH (09:08)
[2018-04-25] MEDS ORDERED: TORSEMIDE 20 MG TABLET PO SCH (10:00)
[2018-04-25] MEDS: DOXYCYCLINE HYCLATE 100 MG TABLET PO SCH ×2 (10:36→17:47)
[2018-04-25] MEDS: TORSEMIDE 20 MG TABLET PO SCH (10:37)
[2018-04-25] MEDS: FLUTICASONE/SALMETEROL DISKUS 250-50 MCG/DOSE IH SCH ×2 (10:38→22:15)
[2018-04-25] MEDS: TIOTROPIUM BROMIDE DPI 5 CAP/KIT (18 MCG/CAP) IH SCH (10:39)
[2018-04-25] MEDS ORDERED: MORPHINE SULFATE 10 MG/ML INJ IV PRN (11:46)
--- NOTE | 2018-04-25 17:07 | PDOC PROGRESS REPORT ---
Subjective Progress Note for:: 04/25/18 Subjective:: DANIEL NESS is a 72 year old male with a 2-week history of progressively worsening dyspnea. Additionally he had noted a significant weight gain and fluid retention with swelling in his lower extremities and his hands. He admitted similar episodes numerous times in the past related to his chronic COPD as well as congestive heart failure. He was admitted from the emergency room after being placed on BiPAP for his dyspnea. He is normally treated by his primary care provider, MAURICE ORTIZ DO. After hospitalization he was treated with intravenous Lasix as well as Zaroxolyn for his heart failure. He actually had a gaining weight from the time he was admitted according to the bed scale measurements however the best determination is that he is most likely lost something along the line of 2 or 3 kg over the last several days. He states he has not actually been able to determine that his swelling is any better but he is breathing a little bit better. He still has massive swelling in his genitalia as well as his abdominal pannus and his bilateral lower extremities and this swelling is accompanied by a significant amount of pain. He is requesting something to help with the pain and I have discussed the alternatives. He frequently takes Percocet 10/325 every 4-6 hours at home to treat his pain. I feel it would be more appropriate to use something that may assist with his pain control as well as also aid in treating his congestive heart failure. To that end I have suggested that we use IV morphine 3 mg every 4 hours as needed pain and that will be provided. He continues to have edema of his fingers and hands and is still significantly dyspneic with any attempted activity. I have discussed his case with Mr. Ness as well as his son and we have agreed to try a new tach with higher dose oral Demadex as well as continued use of Zaroxolyn in hopes of obtaining better diuresis. His IV antibiotics would appear to be unnecessary at this point as the patient does not actually have a cellulitis but instead has just edema of his abdominal pannus and lower extremities with some local erythema associated with them but no actual evidence of infection. As such his IV antibiotics will be discontinued, however as I was unable to observe the patient at the onset of his disease and I cannot be certain that his presentation was always as it is currently I will continue him on doxycycline 100 mg p.o. twice daily for 10 days. This plan was discussed with the patient and his son and we agreed to reassess on a daily basis to determine when it would be appropriate for him to be discharged to home or to a intermediate facility for rehab. Reason For Visit: Dyspnea Physical Exam Vital Signs: Temp Pulse Resp BP Pulse Ox 97.4 F 69 20 94/48 L 100 04/25/18 11:50 04/25/18 11:50 04/25/18 11:50 04/25/18 11:50 04/25/18 11:50 Intake & Output 04/23/18 04/24/18 04/25/18 23:59 23:59 23:59 Intake Total 1172 847 422 Output Total 2225 2150 1200 Balance -5553 -6724 -298 Weight 145.5 kg 145.3 kg 141.9 kg General appearance: PRESENT: mild distress, morbidly obese Head exam: PRESENT: atraumatic, normocephalic Eye exam: PRESENT: conjunctiva pink, EOMI, periorbital swelling - Mild bilateral. Mouth exam: PRESENT: neck supple, tongue midline Neck exam: PRESENT: JVD - Bilateral. ABSENT: thyromegaly, tracheal deviation Respiratory exam: PRESENT: rales - Bibasilar rales involve the lower fourth of the chest., symmetrical, unlabored Cardiovascular exam: PRESENT: irregular rhythm. ABSENT: bradycardia, clicks, diastolic murmur, gallop, rubs, systolic murmur, tachycardia Vascular exam: PRESENT: normal capillary refill. ABSENT: pallor GI/Abdominal exam: PRESENT: normal bowel sounds, soft, other - 3+ pitting edema of the abdominal pannus with mild erythema is noted. Rectal exam: PRESENT: deferred Extremities exam: PRESENT: other - 3+ pitting edema to the hips is noted bilaterally with massive scrotal edema present.. ABSENT: tenderness Musculoskeletal exam: ABSENT: deformity, dislocation Neurological exam: PRESENT: alert, oriented to person, oriented to place, oriented to time, oriented to situation, CN II-XII grossly intact. ABSENT: motor sensory deficit Psychiatric exam: PRESENT: appropriate affect, normal mood Skin exam: PRESENT: jaundice, rash, urticaria Results Laboratory Results: 04/24/18 06:32 04/24/18 06:32 04/19/18 18:50 Blood Blood Culture - Final NO GROWTH IN 5 DAYS 10/04/20/18 04/20/18 22:07 03:52 10:12 Troponin I 0.019 0.026 0.027 NT-Pro-B Natriuret Pep 3510 H Impressions: Chest X-Ray 04/20/18 06:00 IMPRESSION: Unchanged persistent interstitial pulmonary edema Assessment & Plan - Diagnosis (1) Acute on chronic combined systolic and diastolic CHF (congestive heart failure) Is this a current diagnosis for this admission?: Yes Plan: Patient has significant anasarca associated with his congestive failure. He will be treated with Demadex 100 mg p.o. daily in lieu of his current furosemide therapy. He will be continued on Zaroxolyn 2.5 mg p.o. daily to help promote more aggressive diuresis. We will add morphine 3 mg IV every 4 hours as needed pain to his current regimen and discontinue the use of Percocet. We will follow his CBC, BMP and magnesium levels on a daily basis. (2) Acute and chronic respiratory failure Qualifiers: Respiratory failure complication: hypoxia and hypercapnia Qualified Code(s) : J96.21 - Acute and chronic respiratory failure with hypoxia; J96.22 - Acute and chronic respiratory failure with hypercapnia; J96.22 - Acute and chronic respiratory failure with hypercapnia; J96.22 - Acute and chronic respiratory failure with hypercapnia Is this a current diagnosis for this admission?: Yes Plan: The patient was admitted with acute and chronic respiratory failure and treated initially with BiPAP. After some initial improvement with administration of IV furosemide patient has been able to tolerate being on room air or supplemental oxygen without the use of BiPAP. Patient will be maintained at a reasonable oxygen saturation given his chronic obstructive pulmonary disease some thing in the low 90s would be appropriate. (3) Atrial fibrillation Qualifiers: Atrial fibrillation type: paroxysmal Qualified Code(s): I48.0 - Paroxysmal atrial fibrillation Is this a current diagnosis for this admission?: Yes Plan: Patient has a history of atrial fibrillation and is on chronic Eliquis therapy for prevention of strokes. He is also taking amiodarone for rate control as well as metoprolol tartrate. I will be discontinuing both the amiodarone and metoprolol tartrate to better treat his congestive heart failure with metoprolol succinate. He will be started on Toprol-XL 100 mg p.o. daily beginning tomorrow. (4) CKD (chronic kidney disease) stage 3, GFR 30-59 ml/min Is this a current diagnosis for this admission?: Yes Plan: Patient's chronic kidney disease complicates his heart failure by limiting his ability to be adequately diuresed. If the current effort at obtaining diuresis with Demadex is unsuccessful I will consider placing patient on a Bumex drip after withdrawing all of his other medications. (5) Morbid obesity with BMI of 40.0-44.9, adult Is this a current diagnosis for this admission?: Yes Plan: Patient's morbid obesity certainly plays a comorbidity role in all phases of his health. It complicates his COPD as well as his congestive heart failure and to some degree his atrial fibrillation. A brief discussion of weight loss and dieting was undertaken however the patient has no particular interest in pursuing this at this time. (6) COPD (chronic obstructive pulmonary disease) Qualifiers: COPD type: unspecified COPD Qualified Code(s): J44.9 - Chronic obstructive pulmonary disease, unspecified Is this a current diagnosis for this admission?: Yes Plan: Patient's chronic obstructive pulmonary disease contributes to his respiratory failure because of comorbid factoring. He will be continued on appropriate supplemental oxygen is required to maintain a satisfactory oxygen saturation throughout the remainder of his hospital stay and this is the usual course that he uses at home for his home oxygen therapy. - Time Time Spent with patient: 35 or more minutes Medications reviewed and adjusted accordingly: Yes Anticipated discharge: Home, SNF
[2018-04-25] MEDS: MORPHINE SULFATE 10 MG/5 ML ORAL SOLUTION UDCUP PO PRN (18:57)
[2018-04-25] MEDS: ALBUTEROL SULFATE 0.083% NEB 2.5 MG/3 ML AMPUL NEB PRN (20:28)
[2018-04-25] MEDS: MORPHINE SULFATE SR 30 MG TABLET PO SCH (22:13)
[2018-04-25] MEDS: ATORVASTATIN CALCIUM 40 MG TABLET PO SCH (22:15)
[2018-04-26] MEDS: MORPHINE SULFATE SR 30 MG TABLET PO SCH ×2 (06:13→17:17)
[2018-04-26] MEDS: BUDESONIDE NEB 0.5 MG/2 ML AMPUL NEB SCH ×2 (07:48→20:30)
[2018-04-26] MEDS: TIOTROPIUM BROMIDE DPI 5 CAP/KIT (18 MCG/CAP) IH SCH (09:19)
[2018-04-26] MEDS: FLUTICASONE/SALMETEROL DISKUS 250-50 MCG/DOSE IH SCH ×2 (09:19→22:15)
[2018-04-26] MEDS: METOLAZONE 5 MG TABLET PO SCH (09:20)
[2018-04-26] MEDS: APIXABAN 5 MG TABLET PO SCH ×2 (09:20→17:17)
[2018-04-26] MEDS: ASPIRIN 81 MG TABLET, CHEWABLE PO SCH (09:20)
[2018-04-26] MEDS: DOXYCYCLINE HYCLATE 100 MG TABLET PO SCH ×2 (09:20→17:18)
[2018-04-26] MEDS: DOCUSATE SODIUM 100 MG CAPSULE PO SCH ×2 (09:20→17:17)
[2018-04-26] MEDS: SERTRALINE HCL 50 MG TABLET PO SCH (09:21)
[2018-04-26] MEDS: TORSEMIDE 20 MG TABLET PO SCH (09:21)
[2018-04-26] MEDS ORDERED: METOPROLOL SUCCINATE 50 MG TAB.SR.24H PO SCH (10:00)
[2018-04-26 12:10] LABS: ABSOLUTE BASOPHILS # (AUTO) 0.1 10^3/uL (0.0-0.2); ABSOLUTE EOSINOPHILS # (AUTO) 0.1 10^3/uL (0.0-0.6); ABSOLUTE MONOCYTES (AUTO) 0.6 10^3/uL (0.1-1.4); ABSOLUTE NEUT (AUTO) 2.7 10^3/uL (1.7-8.2); BASOPHILS % (AUTO) 1.2 % (0-2); EOSINOPHILS % (AUTO) 2.9 % (0-6); HEMATOCRIT 26.6 % (37.9-51.0); HEMOGLOBIN 8.4 g/dL (13.5-17.0); LYMPHOCYTES % (AUTO) 21.8 % (13-45); MEAN CORPUSCULAR HEMOGLOBIN 26.2 pg (27.0-33.4); MEAN CORPUSCULAR HGB CONC 31.4 g/dL (32.0-36.0); MEAN CORPUSCULAR VOLUME 83 fl (80-97); PLATELET COUNT 217 10^3/uL (150-450); RED BLOOD COUNT 3.19 10^6/uL (4.35-5.55); RED CELL DISTRIBUTION WIDTH 17.5 % (11.5-14.0); SEGMENTED NEUTROPHILS % (AUTO) 60.1 % (42-78); TOTAL CELLS COUNTED % (AUTO) 100 %; WHITE BLOOD COUNT 4.5 10^3/uL (4.0-10.5)
[2018-04-26 12:36] LABS: BLOOD UREA NITROGEN 53 mg/dL (7-20); CALCIUM 8.7 mg/dL (8.4-10.2); CHLORIDE 89 mmol/L (98-107); GLUCOSE 98 mg/dL (75-110); POTASSIUM 3.8 mmol/L (3.6-5.0)
[2018-04-26 12:50] LABS: ANION GAP 12 (5-19)
[2018-04-26 12:52] LABS: CARBON DIOXIDE 42 mmol/L (22-30)
[2018-04-26] MEDS ORDERED: NORMAL SALINE 250 ML with FUROSEMIDE 250 MG IV PRN ×2 (13:28)
--- NOTE | 2018-04-26 14:11 | PDOC PROGRESS REPORT ---
Subjective Progress Note for:: 04/26/18 Subjective:: 04/19/18: DANIEL NESS is a 72 year old male with a 2-week history of progressively worsening dyspnea. Additionally he had noted a significant weight gain and fluid retention with swelling in his lower extremities and his hands. He admitted similar episodes numerous times in the past related to his chronic COPD as well as congestive heart failure. He was admitted from the emergency room after being placed on BiPAP for his dyspnea. He is normally treated by his primary care provider, MAURICE ORTIZ DO. 04/25/18: After hospitalization he was treated with intravenous Lasix as well as Zaroxolyn for his heart failure. He actually had a gaining weight from the time he was admitted according to the bed scale measurements however the best determination is that he is most likely lost something along the line of 2 or 3 kg over the last several days. He states he has not actually been able to determine that his swelling is any better but he is breathing a little bit better. He still has massive swelling in his genitalia as well as his abdominal pannus and his bilateral lower extremities and this swelling is accompanied by a significant amount of pain. He is requesting something to help with the pain and I have discussed the alternatives. He frequently takes Percocet 10/325 every 4-6 hours at home to treat his pain. I feel it would be more appropriate to use something that may assist with his pain control as well as also aid in treating his congestive heart failure. To that end I have suggested that we use IV morphine 3 mg every 4 hours as needed pain and that will be provided. He continues to have edema of his fingers and hands and is still significantly dyspneic with any attempted activity. I have discussed his case with Mr. Ness as well as his son and we have agreed to try a new tach with higher dose oral Demadex as well as continued use of Zaroxolyn in hopes of obtaining better diuresis. His IV antibiotics would appear to be unnecessary at this point as the patient does not actually have a cellulitis but instead has just edema of his abdominal pannus and lower extremities with some local erythema associated with them but no actual evidence of infection. As such his IV antibiotics will be discontinued, however as I was unable to observe the patient at the onset of his disease and I cannot be certain that his presentation was always as it is currently I will continue him on doxycycline 100 mg p.o. twice daily for 10 days. This plan was discussed with the patient and his son and we agreed to reassess on a daily basis to determine when it would be appropriate for him to be discharged to home or to a nursing home facility for rehab. 04/26/18: Mr. Ness's CHF/edema has failed to respond well to oral torsemide plus Zaroxolyn. He will therefore be placed on a furosemide drip. Initially we will use 10 mg/h and titrate as appropriate based on his weight loss. Patient be weighed every 8 hours and reevaluation will be done every day. He has had better pain control and has been sleeping more but has been able to wake up well and eat. I have discussed the change in therapy with patient's son and with the patient although he was somewhat sleepy during my discussion. I will be decreasing the patient's morphine to 30 mg of MS Contin every 12 hours instead of every 8 hours with maintenance of his breakthrough pain dosage still available. The patient's edema/anasarca are unchanged on today's exam. His pulmonary exam is unchanged and his cardiac exam shows a significantly slower paced rhythm at the time my evaluation today. A Tapia catheter will be placed for the patient's comfort during this effort at diuresis. He will be placed on BiPAP continuously to help improve his metabolic status. Reason For Visit: ACUTE ON CHRONIC RESP FAILURE, CAD, CELLULITIS Physical Exam Vital Signs: Temp Pulse Resp BP Pulse Ox 97.8 F 59 L 16 98/48 L 100 04/26/18 11:25 04/26/18 11:25 04/26/18 11:25 04/26/18 11:25 04/26/18 11:25 Intake & Output 04/24/18 04/25/18 04/26/18 23:59 23:59 23:59 Intake Total 847 542 354 Output Total 1240 2100 625 Balance -1673 -8830 -271 Weight 145.3 kg 141.9 kg General appearance: PRESENT: no acute distress, morbidly obese, other - Sitting up in his chair sleeping but arousable. Head exam: PRESENT: atraumatic, normocephalic Eye exam: ABSENT: nystagmus, scleral icterus Ear exam: PRESENT: normal external ear exam. ABSENT: bleeding Mouth exam: PRESENT: dry mucosa, neck supple Neck exam: ABSENT: thyromegaly, tracheal deviation Respiratory exam: PRESENT: rales - Find bibasilar rales in the lower one fourth of both lung molina, symmetrical, unlabored. ABSENT: wheezes Cardiovascular exam: PRESENT: RRR - Paced rhythm at 60. ABSENT: clicks, diastolic murmur, gallop, rubs, systolic murmur Vascular exam: PRESENT: normal capillary refill. ABSENT: pallor GI/Abdominal exam: PRESENT: normal bowel sounds, soft Rectal exam: PRESENT: deferred Extremities exam: PRESENT: other - 3+ pitting edema to the hips with massive scrotal edema noted and edema of the bilateral hands also present.. ABSENT: tenderness Musculoskeletal exam: ABSENT: deformity, dislocation Neurological exam: PRESENT: alert - When roused, oriented to person, oriented to place, oriented to time, oriented to situation, CN II-XII grossly intact. ABSENT: motor sensory deficit Psychiatric exam: PRESENT: appropriate affect, normal mood Skin exam: ABSENT: jaundice, rash, urticaria Results Laboratory Results: 04/26/18 11:00 04/26/18 11:00 04/26/18 04/26/18 11:00 11:00 WBC 4.5 RBC 3.19 L Hgb 8.4 L Hct 26.6 L MCV 83 MCH 26.2 L MCHC 31.4 L RDW 17.5 H Plt Count 217 Seg Neutrophils % 60.1 Lymphocytes % 21.8 Monocytes % 14.0 H Eosinophils % 2.9 Basophils % 1.2 Absolute Neutrophils 2.7 Absolute Lymphocytes 1.0 Absolute Monocytes 0.6 Absolute Eosinophils 0.1 Absolute Basophils 0.1 Sodium 143.0 Potassium 3.8 Chloride 89 L Carbon Dioxide 42 H* Anion Gap 12 BUN 53 H Creatinine 2.25 H Est GFR ( Amer) 35 L Est GFR (Non-Af Amer) 29 L Glucose 98 Calcium 8.7 Magnesium 2.4 H 04/19/18 04/20/18 04/20/18 22:07 03:52 10:12 Troponin I 0.019 0.026 0.027 NT-Pro-B Natriuret Pep 3510 H Impressions: Chest X-Ray 04/20/18 06:00 IMPRESSION: Unchanged persistent interstitial pulmonary edema Assessment & Plan - Diagnosis (1) Acute on chronic combined systolic and diastolic CHF (congestive heart failure) Is this a current diagnosis for this admission?: Yes Plan: Patient has significant anasarca associated with his congestive failure. He will be treated with Demadex 100 mg p.o. daily in lieu of his current furosemide therapy. He will be continued on Zaroxolyn 2.5 mg p.o. daily to help promote more aggressive diuresis. We will add morphine 3 mg IV every 4 hours as needed pain to his current regimen and discontinue the use of Percocet. We will follow his CBC, BMP and magnesium levels on a daily basis. 04/26/18: Patient is not had significant increase in urinary output since starting the increased dose of Demadex. With this failure of therapy patient will be treated with a Lasix drip to try to improve his urinary output and eliminate some of his excessive edema. His oral morphine dose will be decreased to 30 mg of MS Contin every 12 hours. He will have 15 mg of MS IR available every 4 hours as needed breakthrough pain. I have discontinued his torsemide, metolazone, metoprolol, losartan and atorvastatin. Patient's laboratory evaluation will be followed every 24 hours and his weight will be recorded every 8 hours. (2) Acute and chronic respiratory failure Qualifiers: Respiratory failure complication: hypoxia and hypercapnia Qualified Code(s) : J96.21 - Acute and chronic respiratory failure with hypoxia; J96.22 - Acute and chronic respiratory failure with hypercapnia; J96.22 - Acute and chronic respiratory failure with hypercapnia; J96.22 - Acute and chronic respiratory failure with hypercapnia Is this a current diagnosis for this admission?: Yes Plan: The patient was admitted with acute and chronic respiratory failure and treated initially with BiPAP. After some initial improvement with administration of IV furosemide patient has been able to tolerate being on room air or supplemental oxygen without the use of BiPAP. Patient will be maintained at a reasonable oxygen saturation given his chronic obstructive pulmonary disease some thing in the low 90s would be appropriate. 04/26/18: Patient will be placed on BiPAP as continuously as possible as his CO2 has increased to 42 and his metabolic profile. This would indicate the patient is hyperventilating and retaining carbon dioxide. We will reassess his metabolic profile on a daily basis and will be obtaining ABGs as needed if patient is not showing an adequate response or develops other problems. (3) Atrial fibrillation Qualifiers: Atrial fibrillation type: paroxysmal Qualified Code(s): I48.0 - Paroxysmal atrial fibrillation Is this a current diagnosis for this admission?: Yes Plan: Patient has a history of atrial fibrillation and is on chronic Eliquis therapy for prevention of strokes. He is also taking amiodarone for rate control as well as metoprolol tartrate. I will be discontinuing both the amiodarone and metoprolol tartrate to better treat his congestive heart failure with metoprolol succinate. He will be started on Toprol-XL 100 mg p.o. daily beginning tomorrow. 04/26/18: The patient's Toprol-XL was discontinued as the patient be on a Lasix drip and his blood pressure will need to be monitored closely with no interference in his diuretic treatment due to hypotension caused by medications. I will monitor his heart rate closely while he is being diuresed and I would consider treating any significant tachycardia with additional IV digoxin. (4) CKD (chronic kidney disease) stage 3, GFR 30-59 ml/min Is this a current diagnosis for this admission?: Yes Plan: Patient's chronic kidney disease complicates his heart failure by limiting his ability to be adequately diuresed. If the current effort at obtaining diuresis with Demadex is unsuccessful I will consider placing patient on a Bumex drip after withdrawing all of his other medications. 04/26/18: Patient is failed to diurese well with Demadex and therefore he will be started on Lasix drip at 10 mg/min. Diuresis will be monitored by weighing the patient every 8 hours and measuring his urine output and a Tapia catheter. His renal functions will be followed on a daily basis. (5) Morbid obesity with BMI of 40.0-44.9, adult Is this a current diagnosis for this admission?: Yes Plan: Patient's morbid obesity certainly plays a comorbidity role in all phases of his health. It complicates his COPD as well as his congestive heart failure and to some degree his atrial fibrillation. A brief discussion of weight loss and dieting was undertaken however the patient has no particular interest in pursuing this at this time. (6) COPD (chronic obstructive pulmonary disease) Qualifiers: COPD type: unspecified COPD Qualified Code(s): J44.9 - Chronic obstructive pulmonary disease, unspecified Is this a current diagnosis for this admission?: Yes Plan: Patient's chronic obstructive pulmonary disease contributes to his respiratory failure because of comorbid factoring. He will be continued on appropriate supplemental oxygen is required to maintain a satisfactory oxygen saturation throughout the remainder of his hospital stay and this is the usual course that he uses at home for his home oxygen therapy. 04/26/18: Patient will be placed on continuous BiPAP except for meals and therapy activities. He was noted to have an increased CO2 on a metabolic profile indicating that he is having a respiratory acidosis and BiPAP will help to resolve this problem. We will monitor his metabolic profile on a daily basis and will be obtaining ABGs as needed. He will be continued on his pulmonary toilet with inhalers and as needed nebulizers. - Time Time Spent with patient: 35 or more minutes Anticipated discharge: Home, SNF
[2018-04-26] MEDS: MORPHINE SULFATE 10 MG/5 ML ORAL SOLUTION UDCUP PO PRN ×2 (14:34→22:23)
[2018-04-26] MEDS: ATORVASTATIN CALCIUM 40 MG TABLET PO SCH (22:15)
[2018-04-27 03:06] LABS: ABSOLUTE EOSINOPHILS # (AUTO) 0.1 10^3/uL (0.0-0.6); ABSOLUTE LYMPHOCYTES (AUTO) 0.9 10^3/uL (0.5-4.7); ABSOLUTE MONOCYTES (AUTO) 0.5 10^3/uL (0.1-1.4); ABSOLUTE NEUT (AUTO) 2.6 10^3/uL (1.7-8.2); BASOPHILS % (AUTO) 1.1 % (0-2); EOSINOPHILS % (AUTO) 3.2 % (0-6); MEAN CORPUSCULAR HEMOGLOBIN 26.3 pg (27.0-33.4); MEAN CORPUSCULAR VOLUME 82 fl (80-97); MONOCYTES % (AUTO) 12.9 % (3-13); PLATELET COUNT 195 10^3/uL (150-450); RED BLOOD COUNT 3.04 10^6/uL (4.35-5.55); RED CELL DISTRIBUTION WIDTH 17.7 % (11.5-14.0); SEGMENTED NEUTROPHILS % (AUTO) 61.8 % (42-78); TOTAL CELLS COUNTED % (AUTO) 100 %; WHITE BLOOD COUNT 4.2 10^3/uL (4.0-10.5)
[2018-04-27 03:28] LABS: BLOOD UREA NITROGEN 57 mg/dL (7-20); CALCIUM 8.5 mg/dL (8.4-10.2); CHLORIDE 89 mmol/L (98-107); GLUCOSE 94 mg/dL (75-110); SODIUM 142.5 mmol/L (137-145)
[2018-04-27 03:38] LABS: ANION GAP 12 (5-19)
[2018-04-27 03:39] LABS: CARBON DIOXIDE 42 mmol/L (22-30)
[2018-04-27] MEDS: MORPHINE SULFATE SR 30 MG TABLET PO SCH (06:08)
[2018-04-27] MEDS: BUDESONIDE NEB 0.5 MG/2 ML AMPUL NEB SCH ×2 (08:06→20:19)
[2018-04-27] MEDS: ALBUTEROL SULFATE 0.083% NEB 2.5 MG/3 ML AMPUL NEB PRN (08:06)
[2018-04-27] MEDS: APIXABAN 5 MG TABLET PO SCH ×2 (09:30→17:33)
[2018-04-27] MEDS: TIOTROPIUM BROMIDE DPI 5 CAP/KIT (18 MCG/CAP) IH SCH (09:31)
[2018-04-27] MEDS: FLUTICASONE/SALMETEROL DISKUS 250-50 MCG/DOSE IH SCH ×2 (09:31→22:12)
[2018-04-27] MEDS: SERTRALINE HCL 50 MG TABLET PO SCH (09:31)
[2018-04-27] MEDS: DOCUSATE SODIUM 100 MG CAPSULE PO SCH ×2 (09:31→17:32)
[2018-04-27] MEDS: ASPIRIN 81 MG TABLET, CHEWABLE PO SCH (09:31)
[2018-04-27] MEDS: DOXYCYCLINE HYCLATE 100 MG TABLET PO SCH ×2 (09:31→17:33)
[2018-04-27] MEDS ORDERED: METOPROLOL SUCCINATE 50 MG TAB.SR.24H PO SCH (10:00)
--- NOTE | 2018-04-27 14:19 | PDOC PROGRESS REPORT ---
Subjective Progress Note for:: 04/27/18 Subjective:: 04/19/18: DANIEL NESS is a 72 year old male with a 2-week history of progressively worsening dyspnea. Additionally he had noted a significant weight gain and fluid retention with swelling in his lower extremities and his hands. He admitted similar episodes numerous times in the past related to his chronic COPD as well as congestive heart failure. He was admitted from the emergency room after being placed on BiPAP for his dyspnea. He is normally treated by his primary care provider, MAURICE ORTIZ DO. 04/25/18: After hospitalization he was treated with intravenous Lasix as well as Zaroxolyn for his heart failure. He actually had a gaining weight from the time he was admitted according to the bed scale measurements however the best determination is that he is most likely lost something along the line of 2 or 3 kg over the last several days. He states he has not actually been able to determine that his swelling is any better but he is breathing a little bit better. He still has massive swelling in his genitalia as well as his abdominal pannus and his bilateral lower extremities and this swelling is accompanied by a significant amount of pain. He is requesting something to help with the pain and I have discussed the alternatives. He frequently takes Percocet 10/325 every 4-6 hours at home to treat his pain. I feel it would be more appropriate to use something that may assist with his pain control as well as also aid in treating his congestive heart failure. To that end I have suggested that we use IV morphine 3 mg every 4 hours as needed pain and that will be provided. He continues to have edema of his fingers and hands and is still significantly dyspneic with any attempted activity. I have discussed his case with Mr. Ness as well as his son and we have agreed to try a new tach with higher dose oral Demadex as well as continued use of Zaroxolyn in hopes of obtaining better diuresis. His IV antibiotics would appear to be unnecessary at this point as the patient does not actually have a cellulitis but instead has just edema of his abdominal pannus and lower extremities with some local erythema associated with them but no actual evidence of infection. As such his IV antibiotics will be discontinued, however as I was unable to observe the patient at the onset of his disease and I cannot be certain that his presentation was always as it is currently I will continue him on doxycycline 100 mg p.o. twice daily for 10 days. This plan was discussed with the patient and his son and we agreed to reassess on a daily basis to determine when it would be appropriate for him to be discharged to home or to a group home facility for rehab. 04/26/18: Mr. Ness's CHF/edema has failed to respond well to oral torsemide plus Zaroxolyn. He will therefore be placed on a furosemide drip. Initially we will use 10 mg/h and titrate as appropriate based on his weight loss. Patient be weighed every 8 hours and reevaluation will be done every day. He has had better pain control and has been sleeping more but has been able to wake up well and eat. I have discussed the change in therapy with patient's son and with the patient although he was somewhat sleepy during my discussion. I will be decreasing the patient's morphine to 30 mg of MS Contin every 12 hours instead of every 8 hours with maintenance of his breakthrough pain dosage still available. The patient's edema/anasarca are unchanged on today's exam. His pulmonary exam is unchanged and his cardiac exam shows a significantly slower paced rhythm at the time my evaluation today. A Tapia catheter will be placed for the patient's comfort during this effort at diuresis. He will be placed on BiPAP continuously to help improve his metabolic status. 04/27/18: Mr. Ness has substantially improved output with the furosemide drip. Because of the exceptionally good output he will be continued on a furosemide drip with the value of the drip reassessed on a daily basis. We will continue daily monitoring of his electrolytes and hemogram. He is continued to be fairly sleepy and as such he continues to have some CO2 narcosis as he has not been properly using his BiPAP or CPAP on a continuous basis except for eating and therapy activities. I will decrease his morphine to 15 mg of MS Contin every 12 hours and continue the as needed dose of morphine 15 mg p.o. every 4 hours as needed breakthrough pain. I have encouraged him to use his BiPAP/CPAP on a continuous basis and I will reinstruct respiratory therapy to make sure that this is accomplished. Reason For Visit: ACUTE ON CHRONIC RESP FAILURE, CAD, CELLULITIS Physical Exam Vital Signs: Temp Pulse Resp BP Pulse Ox 98.1 F 57 L 12 98/42 L 98 04/27/18 11:16 11/01/18 11:16 04/27/18 11:16 04/27/18 11:16 04/27/18 11:16 Intake & Output 04/25/18 04/26/18 04/27/18 23:59 23:59 23:59 Intake Total 542 472 Output Total 2100 925 1800 Balance -1773 -501 -3721 Weight 141.9 kg 143.6 kg General appearance: PRESENT: no acute distress, other - Somnolent but arousable Head exam: PRESENT: atraumatic, normocephalic Eye exam: ABSENT: conjunctival injection, scleral icterus Ear exam: PRESENT: normal external ear exam. ABSENT: drainage Mouth exam: PRESENT: dry mucosa, neck supple Neck exam: PRESENT: JVD - Bilateral. ABSENT: thyromegaly, tracheal deviation Respiratory exam: PRESENT: rales - Bibasilar lower one fourth of both lungs, symmetrical, unlabored. ABSENT: wheezes Cardiovascular exam: PRESENT: RRR. ABSENT: clicks, diastolic murmur, gallop, rubs, systolic murmur Vascular exam: PRESENT: normal capillary refill. ABSENT: pallor GI/Abdominal exam: PRESENT: normal bowel sounds, soft, other - Edema in the abdominal pannus 3+ and pitting. Rectal exam: PRESENT: deferred Extremities exam: PRESENT: other - 3+ pitting edema of the bilateral lower extremities to the hips. ABSENT: joint swelling Musculoskeletal exam: ABSENT: deformity, dislocation Neurological exam: PRESENT: altered - Somnolent but easily arousable, oriented to person, oriented to place Psychiatric exam: PRESENT: flat affect, normal mood Skin exam: ABSENT: jaundice, rash, urticaria Results Laboratory Results: 04/27/18 02:59 04/27/18 02:59 04/27/18 04/27/18 02:59 02:59 WBC 4.2 RBC 3.04 L Hgb 8.0 L Hct 25.0 L MCV 82 MCH 26.3 L MCHC 32.0 RDW 17.7 H Plt Count 195 Seg Neutrophils % 61.8 Lymphocytes % 21.0 Monocytes % 12.9 Eosinophils % 3.2 Basophils % 1.1 Absolute Neutrophils 2.6 Absolute Lymphocytes 0.9 Absolute Monocytes 0.5 Absolute Eosinophils 0.1 Absolute Basophils 0.0 Sodium 142.5 Potassium 4.0 Chloride 89 L Carbon Dioxide 42 H* Anion Gap 12 BUN 57 H Creatinine 2.11 H Est GFR ( Amer) 37 L Est GFR (Non-Af Amer) 31 L Glucose 94 Calcium 8.5 Magnesium 2.3 04/19/18 04/20/18 04/20/18 22:07 03:52 10:12 Troponin I 0.019 0.026 0.027 NT-Pro-B Natriuret Pep 3510 H Impressions: Chest X-Ray 04/20/18 06:00 IMPRESSION: Unchanged persistent interstitial pulmonary edema Assessment & Plan - Diagnosis (1) Acute on chronic combined systolic and diastolic CHF (congestive heart failure) Is this a current diagnosis for this admission?: Yes Plan: Patient has significant anasarca associated with his congestive failure. He will be treated with Demadex 100 mg p.o. daily in lieu of his current furosemide therapy. He will be continued on Zaroxolyn 2.5 mg p.o. daily to help promote more aggressive diuresis. We will add morphine 3 mg IV every 4 hours as needed pain to his current regimen and discontinue the use of Percocet. We will follow his CBC, BMP and magnesium levels on a daily basis. 04/26/18: Patient is not had significant increase in urinary output since starting the increased dose of Demadex. With this failure of therapy patient will be treated with a Lasix drip to try to improve his urinary output and eliminate some of his excessive edema. His oral morphine dose will be decreased to 30 mg of MS Contin every 12 hours. He will have 15 mg of MS IR available every 4 hours as needed breakthrough pain. I have discontinued his torsemide, metolazone, metoprolol, losartan and atorvastatin. Patient's laboratory evaluation will be followed every 24 hours and his weight will be recorded every 8 hours. 04/27/18: With patient's increased output utilizing Lasix drip this will be continued on an ongoing basis and reevaluated on a daily basis. We will continue to reevaluate the patient's electrolytes and renal functions every day and will continue closely monitoring his output and weights. (2) Acute and chronic respiratory failure Qualifiers: Respiratory failure complication: hypoxia and hypercapnia Qualified Code(s) : J96.21 - Acute and chronic respiratory failure with hypoxia; J96.22 - Acute and chronic respiratory failure with hypercapnia; J96.22 - Acute and chronic respiratory failure with hypercapnia; J96.22 - Acute and chronic respiratory failure with hypercapnia Is this a current diagnosis for this admission?: Yes Plan: The patient was admitted with acute and chronic respiratory failure and treated initially with BiPAP. After some initial improvement with administration of IV furosemide patient has been able to tolerate being on room air or supplemental oxygen without the use of BiPAP. Patient will be maintained at a reasonable oxygen saturation given his chronic obstructive pulmonary disease some thing in the low 90s would be appropriate. 04/26/18: Patient will be placed on BiPAP as continuously as possible as his CO2 has increased to 42 and his metabolic profile. This would indicate the patient is hyperventilating and retaining carbon dioxide. We will reassess his metabolic profile on a daily basis and will be obtaining ABGs as needed if patient is not showing an adequate response or develops other problems. 04/27/18: I will reinstruct the respiratory therapy staff and the nursing staff that the patient must be on BiPAP continuously and have it off only for eating meals or participating in therapeutic activity. (3) Atrial fibrillation Qualifiers: Atrial fibrillation type: paroxysmal Qualified Code(s): I48.0 - Paroxysmal atrial fibrillation Is this a current diagnosis for this admission?: Yes Plan: Patient has a history of atrial fibrillation and is on chronic Eliquis therapy for prevention of strokes. He is also taking amiodarone for rate control as well as metoprolol tartrate. I will be discontinuing both the amiodarone and metoprolol tartrate to better treat his congestive heart failure with metoprolol succinate. He will be started on Toprol-XL 100 mg p.o. daily beginning tomorrow. 04/26/18: The patient's Toprol-XL was discontinued as the patient be on a Lasix drip and his blood pressure will need to be monitored closely with no interference in his diuretic treatment due to hypotension caused by medications. I will monitor his heart rate closely while he is being diuresed and I would consider treating any significant tachycardia with additional IV digoxin. (4) CKD (chronic kidney disease) stage 3, GFR 30-59 ml/min Is this a current diagnosis for this admission?: Yes Plan: Patient's chronic kidney disease complicates his heart failure by limiting his ability to be adequately diuresed. If the current effort at obtaining diuresis with Demadex is unsuccessful I will consider placing patient on a Bumex drip after withdrawing all of his other medications. 04/26/18: Patient is failed to diurese well with Demadex and therefore he will be started on Lasix drip at 10 mg/min. Diuresis will be monitored by weighing the patient every 8 hours and measuring his urine output and a Tapia catheter. His renal functions will be followed on a daily basis. 04/27/18: Mr. Ness's renal functions have remained stable, actually showing mild improvement, thus far on the Lasix drip. His electrolytes have remained in the normal range and therefore he will be continued on the Lasix drip and continue daily monitoring will be undertaken. Diuresis as far has been significantly improved over that of IV push dosing of Lasix and oral torsemide. (5) Morbid obesity with BMI of 40.0-44.9, adult Is this a current diagnosis for this admission?: Yes Plan: Patient's morbid obesity certainly plays a comorbidity role in all phases of his health. It complicates his COPD as well as his congestive heart failure and to some degree his atrial fibrillation. A brief discussion of weight loss and dieting was undertaken however the patient has no particular interest in pursuing this at this time. (6) COPD (chronic obstructive pulmonary disease) Qualifiers: COPD type: unspecified COPD Qualified Code(s): J44.9 - Chronic obstructive pulmonary disease, unspecified Is this a current diagnosis for this admission?: Yes Plan: Patient's chronic obstructive pulmonary disease contributes to his respiratory failure because of comorbid factoring. He will be continued on appropriate supplemental oxygen is required to maintain a satisfactory oxygen saturation throughout the remainder of his hospital stay and this is the usual course that he uses at home for his home oxygen therapy. 04/26/18: Patient will be placed on continuous BiPAP except for meals and therapy activities. He was noted to have an increased CO2 on a metabolic profile indicating that he is having a respiratory acidosis and BiPAP will help to resolve this problem. We will monitor his metabolic profile on a daily basis and will be obtaining ABGs as needed. He will be continued on his pulmonary toilet with inhalers and as needed nebulizers. 04/27/18: Patient's son states that he has not been using his BiPAP on a regular basis only when he is sleeping rest the time he sits up in his chair and sleeps without the benefit of the BiPAP. I have instructed son that this is not appropriate and his father continues to be not using his BiPAP or CPAP he needs to notify the nursing staff or the respiratory therapist so that they can get it back on him for appropriate use as this is significantly hindering his overall recovery. I have sent notification to the staff members involved such that we can be sure that the patient's BiPAP is continuous except for times and he is eating or participating in therapeutic activity.
[2018-04-27] MEDS: MORPHINE SULFATE SR 15 MG TABLET PO SCH (17:32)
[2018-04-27] MEDS ORDERED: MORPHINE SULFATE IR 15 MG TABLET PO SCH (18:00)
[2018-04-27] MEDS: NORMAL SALINE 250 ML with FUROSEMIDE 250 MG IV PRN ×2 (18:38)
[2018-04-27] MEDS: ATORVASTATIN CALCIUM 40 MG TABLET PO SCH (22:12)
[2018-04-27] MEDS: MORPHINE SULFATE 10 MG/5 ML ORAL SOLUTION UDCUP PO PRN (22:25)
[2018-04-28] MEDS: MORPHINE SULFATE SR 15 MG TABLET PO SCH ×2 (05:55→17:59)
[2018-04-28 07:21] LABS: ARTERIAL BLOOD BASE EXCESS 20.2 mmol/L; ARTERIAL BLOOD FIO2 40%; ARTERIAL BLOOD HCO3 47.6 mmol/L (20-24); ARTERIAL BLOOD PO2 87.2 mmHg (80-100); ARTERIAL BLOOD TOTAL CO2 50.1 mmol/L (23-27)
[2018-04-28 07:23] LABS: ARTERIAL BLOOD PCO2 79.6 mmHg (35-45)
[2018-04-28] MEDS: BUDESONIDE NEB 0.5 MG/2 ML AMPUL NEB SCH ×2 (08:45→20:06)
--- NOTE | 2018-04-28 09:17 | PDOC PROGRESS REPORT ---
Subjective Progress Note for:: 04/28/18 Subjective:: 04/19/18: DANIEL NESS is a 72 year old male with a 2-week history of progressively worsening dyspnea. Additionally he had noted a significant weight gain and fluid retention with swelling in his lower extremities and his hands. He admitted similar episodes numerous times in the past related to his chronic COPD as well as congestive heart failure. He was admitted from the emergency room after being placed on BiPAP for his dyspnea. He is normally treated by his primary care provider, MAURICE ORTIZ DO. 04/25/18: After hospitalization he was treated with intravenous Lasix as well as Zaroxolyn for his heart failure. He actually had a gaining weight from the time he was admitted according to the bed scale measurements however the best determination is that he is most likely lost something along the line of 2 or 3 kg over the last several days. He states he has not actually been able to determine that his swelling is any better but he is breathing a little bit better. He still has massive swelling in his genitalia as well as his abdominal pannus and his bilateral lower extremities and this swelling is accompanied by a significant amount of pain. He is requesting something to help with the pain and I have discussed the alternatives. He frequently takes Percocet 10/325 every 4-6 hours at home to treat his pain. I feel it would be more appropriate to use something that may assist with his pain control as well as also aid in treating his congestive heart failure. To that end I have suggested that we use IV morphine 3 mg every 4 hours as needed pain and that will be provided. He continues to have edema of his fingers and hands and is still significantly dyspneic with any attempted activity. I have discussed his case with Mr. Ness as well as his son and we have agreed to try a new tach with higher dose oral Demadex as well as continued use of Zaroxolyn in hopes of obtaining better diuresis. His IV antibiotics would appear to be unnecessary at this point as the patient does not actually have a cellulitis but instead has just edema of his abdominal pannus and lower extremities with some local erythema associated with them but no actual evidence of infection. As such his IV antibiotics will be discontinued, however as I was unable to observe the patient at the onset of his disease and I cannot be certain that his presentation was always as it is currently I will continue him on doxycycline 100 mg p.o. twice daily for 10 days. This plan was discussed with the patient and his son and we agreed to reassess on a daily basis to determine when it would be appropriate for him to be discharged to home or to a prison facility for rehab. 04/26/18: Mr. Ness's CHF/edema has failed to respond well to oral torsemide plus Zaroxolyn. He will therefore be placed on a furosemide drip. Initially we will use 10 mg/h and titrate as appropriate based on his weight loss. Patient be weighed every 8 hours and reevaluation will be done every day. He has had better pain control and has been sleeping more but has been able to wake up well and eat. I have discussed the change in therapy with patient's son and with the patient although he was somewhat sleepy during my discussion. I will be decreasing the patient's morphine to 30 mg of MS Contin every 12 hours instead of every 8 hours with maintenance of his breakthrough pain dosage still available. The patient's edema/anasarca are unchanged on today's exam. His pulmonary exam is unchanged and his cardiac exam shows a significantly slower paced rhythm at the time my evaluation today. A Tapia catheter will be placed for the patient's comfort during this effort at diuresis. He will be placed on BiPAP continuously to help improve his metabolic status. 04/27/18: Mr. Ness has substantially improved output with the furosemide drip. Because of the exceptionally good output he will be continued on a furosemide drip with the value of the drip reassessed on a daily basis. We will continue daily monitoring of his electrolytes and hemogram. He is continued to be fairly sleepy and as such he continues to have some CO2 narcosis as he has not been properly using his BiPAP or CPAP on a continuous basis except for eating and therapy activities. I will decrease his morphine to 15 mg of MS Contin every 12 hours and continue the as needed dose of morphine 15 mg p.o. every 4 hours as needed breakthrough pain. I have encouraged him to use his BiPAP/CPAP on a continuous basis and I will reinstruct respiratory therapy to make sure that this is accomplished. 04/28/18: Mr. Ness's urine output was excellent at 2700+ milliliters over 24 hours yesterday. This morning he is much more alert and oriented though slightly confused and exhibiting mild short-term memory deficits. He agrees that his pain is well controlled and that he feels like he can breathe better today but his swelling is still significant. He is able to eat but does not care much for the food that he is restricted to on his current diet. He denies nausea and vomiting. He was compliant with use of his BiPAP last night and has been wearing his BiPAP all the time except for when he is eating or getting up for a therapeutic reason. His PCO2 this morning however skyrocketed up to 79 and as such I have consulted pulmonology (Dr. Charles) to evaluate the patient to determine whether he requires further intervention such as intubation and ventilation or changes to his BiPAP settings. A portable chest x-ray was also ordered and his regular daily lab work is pending at the time of this dictation. On exam his lungs still show bibasilar rales in the lower one fourth of the lung molina and his anasarca edema is essentially unchanged. Reason For Visit: ACUTE ON CHRONIC RESP FAILURE, CAD, CELLULITIS Physical Exam Vital Signs: Temp Pulse Resp BP Pulse Ox 97.6 F 60 14 114/53 L 94 04/28/18 07:51 04/28/18 07:51 04/28/18 07:51 04/28/18 07:51 04/28/18 07:51 Pulse Oximeter Continuous Start: 04/27/18 14: 06 Freq: RTQ4 Status: Active Document 04/28/18 04:00 LRO (Rec: 04/28/18 05:29 LRO [id number]) Pulse Oximetry Assessment Oxygen Saturation (92-100) 99 Oxygen Delivery Method Bi-pap Fraction of Inspired Oxygen (FIO2) 40 Equipment Usage Equipment in Use Continuous Pulse Oximeter 24 Hour Charge Charge Now Continuous SpO2 Machine # 5 Intake & Output 04/26/18 04/27/18 04/28/18 23:59 23:59 23:59 Intake Total 472 775 Output Total 237 5620 1650 Balance -453 -1924 -1650 Weight 143.6 kg General appearance: PRESENT: no acute distress, cooperative, morbidly obese Head exam: PRESENT: atraumatic, normocephalic Eye exam: ABSENT: conjunctival injection, periorbital swelling, scleral icterus Ear exam: PRESENT: normal external ear exam. ABSENT: drainage Mouth exam: PRESENT: neck supple, tongue midline Teeth exam: PRESENT: poor dentation Neck exam: PRESENT: JVD - Bilateral. ABSENT: thyromegaly, tracheal deviation Respiratory exam: PRESENT: rales - Bibasilar, symmetrical, unlabored. ABSENT: prolonged expiratory phas, rhonchi, wheezes Cardiovascular exam: PRESENT: RRR. ABSENT: bradycardia, clicks, diastolic murmur, gallop, rubs, systolic murmur, tachycardia Pulses: PRESENT: other - Anasarca with 3+ pitting edema to the bilateral hips, bilateral upper extremity edema in the hands and wrists, presacral edema 2+, abdominal pannus edema 3+. Vascular exam: PRESENT: normal capillary refill. ABSENT: pallor GI/Abdominal exam: PRESENT: normal bowel sounds, soft, other - Edema of abdominal pannus as previously noted Rectal exam: PRESENT: deferred Gentrourinary exam: PRESENT: scrotal swelling - 4+ scrotal edema. ABSENT: urethral discharge Extremities exam: ABSENT: joint swelling, tenderness Musculoskeletal exam: ABSENT: deformity, dislocation Neurological exam: PRESENT: alert, oriented to person, oriented to place, CN II- XII grossly intact. ABSENT: oriented to time, oriented to situation, motor sensory deficit Psychiatric exam: PRESENT: appropriate affect, normal mood, other - Mild confusion with short-term memory deficits noted Skin exam: PRESENT: erythema - Typical mild erythema noted in massively edematous tissues of the abdominal pannus and lower extremities.. ABSENT: jaundice, rash, urticaria Results Laboratory Results: 04/27/18 02:59 04/27/18 02:59 04/28/18 06:50 Carbonic Acid 2.40 H HCO3/H2CO3 Ratio 19:1 ABG pH 7.40 ABG pCO2 79.6 H* ABG pO2 87.2 ABG HCO3 47.6 H ABG O2 Saturation 96.0 ABG Base Excess 20.2 FiO2 40% 04/19/18 04/20/18 04/20/18 22:07 03:52 10:12 Troponin I 0.019 0.026 0.027 NT-Pro-B Natriuret Pep 3510 H Impressions: Chest X-Ray 04/20/18 06:00 IMPRESSION: Unchanged persistent interstitial pulmonary edema Assessment & Plan - Diagnosis (1) Acute on chronic combined systolic and diastolic CHF (congestive heart failure) Is this a current diagnosis for this admission?: Yes Plan: Patient has significant anasarca associated with his congestive failure. He will be treated with Demadex 100 mg p.o. daily in lieu of his current furosemide therapy. He will be continued on Zaroxolyn 2.5 mg p.o. daily to help promote more aggressive diuresis. We will add morphine 3 mg IV every 4 hours as needed pain to his current regimen and discontinue the use of Percocet. We will follow his CBC, BMP and magnesium levels on a daily basis. 04/26/18: Patient is not had significant increase in urinary output since starting the increased dose of Demadex. With this failure of therapy patient will be treated with a Lasix drip to try to improve his urinary output and eliminate some of his excessive edema. His oral morphine dose will be decreased to 30 mg of MS Contin every 12 hours. He will have 15 mg of MS IR available every 4 hours as needed breakthrough pain. I have discontinued his torsemide, metolazone, metoprolol, losartan and atorvastatin. Patient's laboratory evaluation will be followed every 24 hours and his weight will be recorded every 8 hours. 04/27/18: With patient's increased output utilizing Lasix drip this will be continued on an ongoing basis and reevaluated on a daily basis. We will continue to reevaluate the patient's electrolytes and renal functions every day and will continue closely monitoring his output and weights. 04/28/18: Patient's Lasix drip was continued and he is still diuresing reasonably well. Diuresis with IV Lasix continuous drip will continue in the Lasix drip rate will be increased to 15 mg/h if tolerated. (2) Acute and chronic respiratory failure Qualifiers: Respiratory failure complication: hypoxia and hypercapnia Qualified Code(s) : J96.21 - Acute and chronic respiratory failure with hypoxia; J96.22 - Acute and chronic respiratory failure with hypercapnia; J96.22 - Acute and chronic respiratory failure with hypercapnia; J96.22 - Acute and chronic respiratory failure with hypercapnia Is this a current diagnosis for this admission?: Yes Plan: The patient was admitted with acute and chronic respiratory failure and treated initially with BiPAP. After some initial improvement with administration of IV furosemide patient has been able to tolerate being on room air or supplemental oxygen without the use of BiPAP. Patient will be maintained at a reasonable oxygen saturation given his chronic obstructive pulmonary disease some thing in the low 90s would be appropriate. 04/26/18: Patient will be placed on BiPAP as continuously as possible as his CO2 has increased to 42 and his metabolic profile. This would indicate the patient is hyperventilating and retaining carbon dioxide. We will reassess his metabolic profile on a daily basis and will be obtaining ABGs as needed if patient is not showing an adequate response or develops other problems. 04/27/18: I will reinstruct the respiratory therapy staff and the nursing staff that the patient must be on BiPAP continuously and have it off only for eating meals or participating in therapeutic activity. 04/28/18: ABGs this morning showed an increased PCO2 at 79 and a pulmonology consult was ordered with Dr. Charles. A portable chest x-ray is ordered and pending at the time of this dictation. Consideration for adjustment of the patient's BiPAP settings or possible intubation and ventilation are the reasons for the pulmonary consultation. Very thankful to Dr. Charles for accepting the consultation and providing his valuable insight and recommendations for the treatment of this patient. (3) Atrial fibrillation Qualifiers: Atrial fibrillation type: paroxysmal Qualified Code(s): I48.0 - Paroxysmal atrial fibrillation Is this a current diagnosis for this admission?: Yes Plan: Patient has a history of atrial fibrillation and is on chronic Eliquis therapy for prevention of strokes. He is also taking amiodarone for rate control as well as metoprolol tartrate. I will be discontinuing both the amiodarone and metoprolol tartrate to better treat his congestive heart failure with metoprolol succinate. He will be started on Toprol-XL 100 mg p.o. daily beginning tomorrow. 04/26/18: The patient's Toprol-XL was discontinued as the patient will be on a Lasix drip and his blood pressure will need to be monitored closely with no interference in his diuretic treatment due to hypotension caused by medications. I will monitor his heart rate closely while he is being diuresed and I would consider treating any significant tachycardia with the addition of IV digoxin. (4) CKD (chronic kidney disease) stage 3, GFR 30-59 ml/min Is this a current diagnosis for this admission?: Yes Plan: Patient's chronic kidney disease complicates his heart failure by limiting his ability to be adequately diuresed. If the current effort at obtaining diuresis with Demadex is unsuccessful I will consider placing patient on a Bumex drip after withdrawing all of his other medications. 04/26/18: Patient is failed to diurese well with Demadex and therefore he will be started on Lasix drip at 10 mg/min. Diuresis will be monitored by weighing the patient every 8 hours and measuring his urine output and a Tapia catheter. His renal functions will be followed on a daily basis. 04/27/18: Mr. Molina renal functions have remained stable, actually showing mild improvement, thus far on the Lasix drip. His electrolytes have remained in the normal range and therefore he will be continued on the Lasix drip and continue daily monitoring will be undertaken. Diuresis as far has been significantly improved over that of IV push dosing of Lasix and oral torsemide. 04/28/18: Mr. Molina Lasix drip will be increased to 15 mg/h if tolerated today. Diuresis thus far has been good however in treating his severe anasarca a more significant diuresis of 3-4000 mL/day is going to be required to make significant forward progress in his care. (5) Morbid obesity with BMI of 40.0-44.9, adult Is this a current diagnosis for this admission?: Yes Plan: Patient's morbid obesity certainly plays a comorbidity role in all phases of his health. It complicates his COPD as well as his congestive heart failure and to some degree his atrial fibrillation. A brief discussion of weight loss and dieting was undertaken however the patient has no particular interest in pursuing this at this time. (6) COPD (chronic obstructive pulmonary disease) Qualifiers: COPD type: unspecified COPD Qualified Code(s): J44.9 - Chronic obstructive pulmonary disease, unspecified Is this a current diagnosis for this admission?: Yes Plan: Patient's chronic obstructive pulmonary disease contributes to his respiratory failure because of comorbid factoring. He will be continued on appropriate supplemental oxygen is required to maintain a satisfactory oxygen saturation throughout the remainder of his hospital stay and this is the usual course that he uses at home for his home oxygen therapy. 04/26/18: Patient will be placed on continuous BiPAP except for meals and therapy activities. He was noted to have an increased CO2 on a metabolic profile indicating that he is having a respiratory acidosis and BiPAP will help to resolve this problem. We will monitor his metabolic profile on a daily basis and will be obtaining ABGs as needed. He will be continued on his pulmonary toilet with inhalers and as needed nebulizers. 04/27/18: Patient's son states that he has not been using his BiPAP on a regular basis only when he is sleeping rest the time he sits up in his chair and sleeps without the benefit of the BiPAP. I have instructed son that this is not appropriate and his father continues to be not using his BiPAP or CPAP he needs to notify the nursing staff or the respiratory therapist so that they can get it back on him for appropriate use as this is significantly hindering his overall recovery. I have sent notification to the staff members involved such that we can be sure that the patient's BiPAP is continuous except for times and he is eating or participating in therapeutic activity. 04/28/18: I discussed the increased PCO2 at 79 with the patient and his son. We discussed the possibility that he may require intubation and ventilation however his status appears to be much better than his PCO2 reflects. Dr. Charles will see the patient in consult and will help to determine the best course going forward and management of his acute on chronic respiratory failure with hypercapnia. A chest x-ray is obtained to assist Dr. Charles and self and evaluating the patient's respiratory status. Daily lab work is pending at the time of this dictation. - Time Time Spent with patient: 35 or more minutes Medications reviewed and adjusted accordingly: Yes Anticipated discharge: Home, Home with Homehealth, Hospice
[2018-04-28] MEDS: SERTRALINE HCL 50 MG TABLET PO SCH (09:45)
[2018-04-28] MEDS: DOCUSATE SODIUM 100 MG CAPSULE PO SCH ×2 (09:45→17:59)
[2018-04-28] MEDS: APIXABAN 5 MG TABLET PO SCH ×2 (09:45→18:00)
[2018-04-28] MEDS: ASPIRIN 81 MG TABLET, CHEWABLE PO SCH (09:45)
[2018-04-28] MEDS: FLUTICASONE/SALMETEROL DISKUS 250-50 MCG/DOSE IH SCH ×2 (09:45→22:17)
--- NOTE | 2018-04-28 10:40 | RADIOLOGY REPORT (SQ) ---
EXAM DESCRIPTION: CHEST SINGLE VIEW COMPLETED DATE/TIME: 04/28/2018 10:01 am REASON FOR STUDY: Worsening respiratory failure COMPARISON: 04/20/2018 NUMBER OF VIEWS: One view. TECHNIQUE: Single frontal radiographic image of the chest acquired. LIMITATIONS: None. FINDINGS: LUNGS AND PLEURA: Silhouetting of the inferior heart border and diaphragm. Small right pl eural effusion. Chronic interstitial changes. MEDIASTINUM AND HEART: Stable heart size and mediastinal structures. SUPPORT DEVICES: Appropriate location without change. BONY STRUCTURES: No acute findings. HARDWARE: None. OTHER: No other significant finding. IMPRESSION: Worsening pulmonary edema and/or superimposed pneumonia left lower lobe. Reading location - IP/workstation name: [email or web address]
[2018-04-28 10:54] LABS: ABSOLUTE EOSINOPHILS # (AUTO) 0.1 10^3/uL (0.0-0.6); ABSOLUTE MONOCYTES (AUTO) 0.6 10^3/uL (0.1-1.4); ABSOLUTE NEUT (AUTO) 2.7 10^3/uL (1.7-8.2); BASOPHILS % (AUTO) 1.1 % (0-2); EOSINOPHILS % (AUTO) 2.7 % (0-6); HEMATOCRIT 23.6 % (37.9-51.0); LYMPHOCYTES % (AUTO) 22.8 % (13-45); MEAN CORPUSCULAR HEMOGLOBIN 26.2 pg (27.0-33.4); MEAN CORPUSCULAR HGB CONC 31.9 g/dL (32.0-36.0); MEAN CORPUSCULAR VOLUME 82 fl (80-97); MONOCYTES % (AUTO) 12.6 % (3-13); PLATELET COUNT 182 10^3/uL (150-450); RED BLOOD COUNT 2.87 10^6/uL (4.35-5.55); RED CELL DISTRIBUTION WIDTH 17.9 % (11.5-14.0); SEGMENTED NEUTROPHILS % (AUTO) 60.8 % (42-78); TOTAL CELLS COUNTED % (AUTO) 100 %; WHITE BLOOD COUNT 4.4 10^3/uL (4.0-10.5)
[2018-04-28 10:59] LABS: HEMOGLOBIN 7.5 g/dL (13.5-17.0)
[2018-04-28 11:08] LABS: BLOOD UREA NITROGEN 62 mg/dL (7-20); CALCIUM 8.6 mg/dL (8.4-10.2); CHLORIDE 88 mmol/L (98-107); GLUCOSE 133 mg/dL (75-110); POTASSIUM 3.3 mmol/L (3.6-5.0); SODIUM 142.2 mmol/L (137-145)
[2018-04-28 11:19] LABS: ANION GAP 11 (5-19)
[2018-04-28 11:21] LABS: CARBON DIOXIDE 43 mmol/L (22-30)
[2018-04-28 14:20] LABS: ARTERIAL BLOOD BASE EXCESS 19.9 mmol/L; ARTERIAL BLOOD H2CO3 2.47 mmol/L (1.05-1.35); ARTERIAL BLOOD O2 SATURATION 97.1 % (94-98); ARTERIAL BLOOD PH 7.38 (7.35-7.45); ARTERIAL BLOOD PO2 99.5 mmHg (80-100); ARTERIAL BLOOD TOTAL CO2 50.5 mmol/L (23-27)
[2018-04-28 14:23] LABS: ARTERIAL BLOOD FIO2 40%
[2018-04-28 14:24] LABS: ARTERIAL BLOOD PCO2 82.2 mmHg (35-45)
[2018-04-28] MEDS: DOXYCYCLINE HYCLATE 100 MG TABLET PO SCH ×2 (15:45→18:00)
[2018-04-28] MEDS: TIOTROPIUM BROMIDE DPI 5 CAP/KIT (18 MCG/CAP) IH SCH (15:52)
[2018-04-28] MEDS ORDERED: NORMAL SALINE 250 ML with FUROSEMIDE 250 MG IV PRN ×2 (18:22)
[2018-04-28] MEDS: ALBUTEROL SULFATE 0.083% NEB 2.5 MG/3 ML AMPUL NEB PRN (20:06)
[2018-04-28] MEDS: NORMAL SALINE 250 ML with FUROSEMIDE 250 MG IV PRN ×4 (20:20→22:19)
[2018-04-28 21:51] LABS: ABSOLUTE BASOPHILS # (AUTO) 0.1 10^3/uL (0.0-0.2); ABSOLUTE EOSINOPHILS # (AUTO) 0.1 10^3/uL (0.0-0.6); ABSOLUTE LYMPHOCYTES (AUTO) 1.3 10^3/uL (0.5-4.7); ABSOLUTE MONOCYTES (AUTO) 0.6 10^3/uL (0.1-1.4); ABSOLUTE NEUT (AUTO) 2.7 10^3/uL (1.7-8.2); BASOPHILS % (AUTO) 1.4 % (0-2); EOSINOPHILS % (AUTO) 2.5 % (0-6); HEMATOCRIT 27.4 % (37.9-51.0); HEMOGLOBIN 8.9 g/dL (13.5-17.0); MEAN CORPUSCULAR HEMOGLOBIN 26.5 pg (27.0-33.4); MEAN CORPUSCULAR HGB CONC 32.4 g/dL (32.0-36.0); MEAN CORPUSCULAR VOLUME 82 fl (80-97); MONOCYTES % (AUTO) 11.7 % (3-13); PLATELET COUNT 181 10^3/uL (150-450); RED BLOOD COUNT 3.35 10^6/uL (4.35-5.55); RED CELL DISTRIBUTION WIDTH 17.8 % (11.5-14.0); SEGMENTED NEUTROPHILS % (AUTO) 57.4 % (42-78); TOTAL CELLS COUNTED % (AUTO) 100 %; WHITE BLOOD COUNT 4.7 10^3/uL (4.0-10.5)
[2018-04-28] MEDS: ATORVASTATIN CALCIUM 40 MG TABLET PO SCH (22:18)
[2018-04-29] MEDS: MORPHINE SULFATE 10 MG/5 ML ORAL SOLUTION UDCUP PO PRN ×2 (03:00→23:19)
[2018-04-29 06:53] LABS: ARTERIAL BLOOD BASE EXCESS 13.7 mmol/L; ARTERIAL BLOOD H2CO3 1.78 mmol/L (1.05-1.35); ARTERIAL BLOOD HCO3 39.6 mmol/L (20-24); ARTERIAL BLOOD O2 SATURATION 95.1 % (94-98); ARTERIAL BLOOD PCO2 59.3 mmHg (35-45); ARTERIAL BLOOD PH 7.44 (7.35-7.45); ARTERIAL BLOOD PO2 74.8 mmHg (80-100); ARTERIAL BLOOD TOTAL CO2 41.4 mmol/L (23-27)
[2018-04-29 06:57] LABS: ARTERIAL BLOOD FIO2 30%
[2018-04-29] MEDS: ALBUTEROL SULFATE 0.083% NEB 2.5 MG/3 ML AMPUL NEB PRN ×2 (08:09→20:12)
[2018-04-29] MEDS: BUDESONIDE NEB 0.5 MG/2 ML AMPUL NEB SCH ×2 (08:09→20:12)
[2018-04-29] MEDS: MORPHINE SULFATE SR 15 MG TABLET PO SCH ×2 (08:26→18:04)
[2018-04-29] MEDS: FLUTICASONE/SALMETEROL DISKUS 250-50 MCG/DOSE IH SCH ×2 (09:27→22:00)
[2018-04-29] MEDS: TIOTROPIUM BROMIDE DPI 5 CAP/KIT (18 MCG/CAP) IH SCH (09:27)
[2018-04-29] MEDS: APIXABAN 5 MG TABLET PO SCH ×2 (09:27→18:05)
[2018-04-29] MEDS: SERTRALINE HCL 50 MG TABLET PO SCH (09:27)
[2018-04-29] MEDS: DOXYCYCLINE HYCLATE 100 MG TABLET PO SCH ×2 (09:27→18:05)
[2018-04-29] MEDS: ASPIRIN 81 MG TABLET, CHEWABLE PO SCH (09:27)
[2018-04-29] MEDS: DOCUSATE SODIUM 100 MG CAPSULE PO SCH ×2 (09:27→18:05)
[2018-04-29] MEDS: NORMAL SALINE 250 ML with FUROSEMIDE 250 MG IV PRN ×4 (14:42→18:13)
--- NOTE | 2018-04-29 17:33 | PDOC PROGRESS REPORT ---
Subjective Progress Note for:: 04/29/18 Subjective:: 04/19/18: DANIEL NESS is a 72 year old male with a 2-week history of progressively worsening dyspnea. Additionally he had noted a significant weight gain and fluid retention with swelling in his lower extremities and his hands. He admitted similar episodes numerous times in the past related to his chronic COPD as well as congestive heart failure. He was admitted from the emergency room after being placed on BiPAP for his dyspnea. He is normally treated by his primary care provider, MAURICE ORTIZ DO. 04/25/18: After hospitalization he was treated with intravenous Lasix as well as Zaroxolyn for his heart failure. He actually had a gaining weight from the time he was admitted according to the bed scale measurements however the best determination is that he is most likely lost something along the line of 2 or 3 kg over the last several days. He states he has not actually been able to determine that his swelling is any better but he is breathing a little bit better. He still has massive swelling in his genitalia as well as his abdominal pannus and his bilateral lower extremities and this swelling is accompanied by a significant amount of pain. He is requesting something to help with the pain and I have discussed the alternatives. He frequently takes Percocet 10/325 every 4-6 hours at home to treat his pain. I feel it would be more appropriate to use something that may assist with his pain control as well as also aid in treating his congestive heart failure. To that end I have suggested that we use IV morphine 3 mg every 4 hours as needed pain and that will be provided. He continues to have edema of his fingers and hands and is still significantly dyspneic with any attempted activity. I have discussed his case with Mr. Ness as well as his son and we have agreed to try a new tach with higher dose oral Demadex as well as continued use of Zaroxolyn in hopes of obtaining better diuresis. His IV antibiotics would appear to be unnecessary at this point as the patient does not actually have a cellulitis but instead has just edema of his abdominal pannus and lower extremities with some local erythema associated with them but no actual evidence of infection. As such his IV antibiotics will be discontinued, however as I was unable to observe the patient at the onset of his disease and I cannot be certain that his presentation was always as it is currently I will continue him on doxycycline 100 mg p.o. twice daily for 10 days. This plan was discussed with the patient and his son and we agreed to reassess on a daily basis to determine when it would be appropriate for him to be discharged to home or to a longterm facility for rehab. 04/26/18: Mr. Ness's CHF/edema has failed to respond well to oral torsemide plus Zaroxolyn. He will therefore be placed on a furosemide drip. Initially we will use 10 mg/h and titrate as appropriate based on his weight loss. Patient be weighed every 8 hours and reevaluation will be done every day. He has had better pain control and has been sleeping more but has been able to wake up well and eat. I have discussed the change in therapy with patient's son and with the patient although he was somewhat sleepy during my discussion. I will be decreasing the patient's morphine to 30 mg of MS Contin every 12 hours instead of every 8 hours with maintenance of his breakthrough pain dosage still available. The patient's edema/anasarca are unchanged on today's exam. His pulmonary exam is unchanged and his cardiac exam shows a significantly slower paced rhythm at the time my evaluation today. A Tapia catheter will be placed for the patient's comfort during this effort at diuresis. He will be placed on BiPAP continuously to help improve his metabolic status. 04/27/18: Mr. Ness has substantially improved output with the furosemide drip. Because of the exceptionally good output he will be continued on a furosemide drip with the value of the drip reassessed on a daily basis. We will continue daily monitoring of his electrolytes and hemogram. He is continued to be fairly sleepy and as such he continues to have some CO2 narcosis as he has not been properly using his BiPAP or CPAP on a continuous basis except for eating and therapy activities. I will decrease his morphine to 15 mg of MS Contin every 12 hours and continue the as needed dose of morphine 15 mg p.o. every 4 hours as needed breakthrough pain. I have encouraged him to use his BiPAP/CPAP on a continuous basis and I will reinstruct respiratory therapy to make sure that this is accomplished. 04/28/18: Mr. Ness's urine output was excellent at 2700+ milliliters over 24 hours yesterday. This morning he is much more alert and oriented though slightly confused and exhibiting mild short-term memory deficits. He agrees that his pain is well controlled and that he feels like he can breathe better today but his swelling is still significant. He is able to eat but does not care much for the food that he is restricted to on his current diet. He denies nausea and vomiting. He was compliant with use of his BiPAP last night and has been wearing his BiPAP all the time except for when he is eating or getting up for a therapeutic reason. His PCO2 this morning however skyrocketed up to 79 and as such I have consulted pulmonology (Dr. Charles) to evaluate the patient to determine whether he requires further intervention such as intubation and ventilation or changes to his BiPAP settings. A portable chest x-ray was also ordered and his regular daily lab work is pending at the time of this dictation. On exam his lungs still show bibasilar rales in the lower one fourth of the lung molina and his anasarca edema is essentially unchanged. 04/29/18: Patient's urine output was again excellent over the last 24 hours. He continues to be more alert and less confused when he is awake. At the time my evaluation today he was sleeping after having finished breakfast. He was noted to have eaten somewhat better today and when aroused he agrees that his pain is been much better controlled and that his breathing has significantly improved. He has been using his BiPAP on AVAPS settings with 30% FiO2 causing significant improvement in his hypercapnic state and significantly reducing the degree of chronic respiratory acidosis. Patient's furosemide drip was increased to 15 mg/ h yesterday and an additional increase will be undertaken today to 20 mg/h. Therapy will be reassessed tomorrow and we are reaching our therapeutic goal for diuresis, a conversion to utilization of bumetanide given IV push every 4 or 6 hours can be entertained. Reason For Visit: ACUTE ON CHRONIC RESP FAILURE, CAD, CELLULITIS Physical Exam Vital Signs: Temp Pulse Resp BP Pulse Ox 97.7 F 60 19 103/51 L 97 04/29/18 15:04 04/29/18 15:04 04/29/18 16:15 04/29/18 15:04 04/29/18 16:15 Pulse Oximeter Continuous Start: 04/27/18 14: 06 Freq: RTQ4 Status: Active Document 04/29/18 16:15 HCR (Rec: 04/29/18 16:16 HCR [id number]) Pulse Oximetry Assessment Oxygen Saturation (92-100) 97 Oxygen Delivery Method AVAP Fraction of Inspired Oxygen (FIO2) 30 Equipment Usage Equipment in Use Continuous SpO2 Machine # xx Intake & Output 04/27/18 04/28/18 04/29/18 23:59 23:59 23:59 Intake Total 775 580 940 Output Total 2700 2550 1999 Balance -1924 -1969 Weight 143.6 kg 143.6 kg General appearance: PRESENT: no acute distress, cooperative Head exam: PRESENT: atraumatic, normocephalic Eye exam: ABSENT: conjunctival injection, scleral icterus Ear exam: PRESENT: normal external ear exam. ABSENT: drainage Mouth exam: PRESENT: neck supple, tongue midline Neck exam: ABSENT: thyromegaly, tracheal deviation Respiratory exam: PRESENT: clear to auscultation shivani, symmetrical, unlabored Cardiovascular exam: PRESENT: RRR. ABSENT: clicks, gallop, rubs Vascular exam: PRESENT: normal capillary refill. ABSENT: pallor GI/Abdominal exam: PRESENT: normal bowel sounds, soft Rectal exam: PRESENT: deferred Extremities exam: PRESENT: other - Patient's edema continues to be 3+ pitting to the upper thighs bilaterally. There is presacral edema has diminished slightly and the abdominal pannus edema is also slightly decreased. The edema the patient's hands and wrists is moderately decreased.. ABSENT: joint swelling Musculoskeletal exam: ABSENT: deformity, dislocation Neurological exam: PRESENT: alert, oriented to person. ABSENT: oriented to place, oriented to time, oriented to situation Psychiatric exam: PRESENT: appropriate affect, normal mood Skin exam: ABSENT: jaundice, rash, urticaria Results Laboratory Results: 04/28/18 21:25 04/28/18 10:19 04/28/18 04/29/18 21:25 06:20 WBC 4.7 RBC 3.35 L Hgb 8.9 L Hct 27.4 L MCV 82 MCH 26.5 L MCHC 32.4 RDW 17.8 H Plt Count 181 Seg Neutrophils % 57.4 Lymphocytes % 27.0 Monocytes % 11.7 Eosinophils % 2.5 Basophils % 1.4 Absolute Neutrophils 2.7 Absolute Lymphocytes 1.3 Absolute Monocytes 0.6 Absolute Eosinophils 0.1 Absolute Basophils 0.1 Carbonic Acid 1.78 H HCO3/H2CO3 Ratio 22:1 ABG pH 7.44 ABG pCO2 59.3 H ABG pO2 74.8 L ABG HCO3 39.6 H ABG O2 Saturation 95.1 ABG Base Excess 13.7 FiO2 30% 04/19/18 04/20/18 04/20/18 22:07 03:52 10:12 Troponin I 0.019 0.026 0.027 NT-Pro-B Natriuret Pep 3510 H Impressions: Chest X-Ray 04/28/18 00:00 IMPRESSION: Worsening pulmonary edema and/or superimposed pneumonia left lower lobe. Assessment & Plan - Diagnosis (1) Acute on chronic combined systolic and diastolic CHF (congestive heart failure) Is this a current diagnosis for this admission?: Yes Plan: Patient has significant anasarca associated with his congestive failure. He will be treated with Demadex 100 mg p.o. daily in lieu of his current furosemide therapy. He will be continued on Zaroxolyn 2.5 mg p.o. daily to help promote more aggressive diuresis. We will add morphine 3 mg IV every 4 hours as needed pain to his current regimen and discontinue the use of Percocet. We will follow his CBC, BMP and magnesium levels on a daily basis. 04/26/18: Patient is not had significant increase in urinary output since starting the increased dose of Demadex. With this failure of therapy patient will be treated with a Lasix drip to try to improve his urinary output and eliminate some of his excessive edema. His oral morphine dose will be decreased to 30 mg of MS Contin every 12 hours. He will have 15 mg of MS IR available every 4 hours as needed breakthrough pain. I have discontinued his torsemide, metolazone, metoprolol, losartan and atorvastatin. Patient's laboratory evaluation will be followed every 24 hours and his weight will be recorded every 8 hours. 04/27/18: With patient's increased output utilizing Lasix drip this will be continued on an ongoing basis and reevaluated on a daily basis. We will continue to reevaluate the patient's electrolytes and renal functions every day and will continue closely monitoring his output and weights. 04/28/18: Patient's Lasix drip was continued and he is still diuresing reasonably well. Diuresis with IV Lasix continuous drip will continue in the Lasix drip rate will be increased to 15 mg/h if tolerated. 04/29/18: Lasix drip will be increased to 20 mg/h and efficacy will be reassessed over the next 12-24 hours. Continue daily metabolic profile evaluations. (2) Acute and chronic respiratory failure Qualifiers: Respiratory failure complication: hypoxia and hypercapnia Qualified Code(s) : J96.21 - Acute and chronic respiratory failure with hypoxia; J96.22 - Acute and chronic respiratory failure with hypercapnia; J96.22 - Acute and chronic respiratory failure with hypercapnia; J96.22 - Acute and chronic respiratory failure with hypercapnia Is this a current diagnosis for this admission?: Yes Plan: The patient was admitted with acute and chronic respiratory failure and treated initially with BiPAP. After some initial improvement with administration of IV furosemide patient has been able to tolerate being on room air or supplemental oxygen without the use of BiPAP. Patient will be maintained at a reasonable oxygen saturation given his chronic obstructive pulmonary disease some thing in the low 90s would be appropriate. 04/26/18: Patient will be placed on BiPAP as continuously as possible as his CO2 has increased to 42 and his metabolic profile. This would indicate the patient is hyperventilating and retaining carbon dioxide. We will reassess his metabolic profile on a daily basis and will be obtaining ABGs as needed if patient is not showing an adequate response or develops other problems. 04/27/18: I will reinstruct the respiratory therapy staff and the nursing staff that the patient must be on BiPAP continuously and have it off only for eating meals or participating in therapeutic activity. 04/28/18: ABGs this morning showed an increased PCO2 at 79 and a pulmonology consult was ordered with Dr. Gonzales. A portable chest x-ray is ordered and pending at the time of this dictation. Consideration for adjustment of the patient's BiPAP settings or possible intubation and ventilation are the reasons for the pulmonary consultation. Very thankful to Dr. Gonzales for accepting the consultation and providing his valuable insight and recommendations for the treatment of this patient. 04/29/18: Patient's arterial blood gases are significantly improved today with his FiO2 decreased to 30% his respiratory drive is substantially improved and his PCO2 has decreased into the 50s. His PO2 is in the 70s and he is quite comfortable. We will continue utilizing the continuous BiPAP with AVAPS settings as per Dr. Gonzales's recommendations. (3) Atrial fibrillation Qualifiers: Atrial fibrillation type: paroxysmal Qualified Code(s): I48.0 - Paroxysmal atrial fibrillation Is this a current diagnosis for this admission?: Yes Plan: Patient has a history of atrial fibrillation and is on chronic Eliquis therapy for prevention of strokes. He is also taking amiodarone for rate control as well as metoprolol tartrate. I will be discontinuing both the amiodarone and metoprolol tartrate to better treat his congestive heart failure with metoprolol succinate. He will be started on Toprol-XL 100 mg p.o. daily beginning tomorrow. 04/26/18: The patient's Toprol-XL was discontinued as the patient will be on a Lasix drip and his blood pressure will need to be monitored closely with no interference in his diuretic treatment due to hypotension caused by medications. I will monitor his heart rate closely while he is being diuresed and I would consider treating any significant tachycardia with the addition of IV digoxin. (4) CKD (chronic kidney disease) stage 3, GFR 30-59 ml/min Is this a current diagnosis for this admission?: Yes Plan: Patient's chronic kidney disease complicates his heart failure by limiting his ability to be adequately diuresed. If the current effort at obtaining diuresis with Demadex is unsuccessful I will consider placing patient on a Bumex drip after withdrawing all of his other medications. 04/26/18: Patient is failed to diurese well with Demadex and therefore he will be started on Lasix drip at 10 mg/min. Diuresis will be monitored by weighing the patient every 8 hours and measuring his urine output and a Tapia catheter. His renal functions will be followed on a daily basis. 04/27/18: Mr. Ness'ely renal functions have remained stable, actually showing mild improvement, thus far on the Lasix drip. His electrolytes have remained in the normal range and therefore he will be continued on the Lasix drip and continue daily monitoring will be undertaken. Diuresis as far has been significantly improved over that of IV push dosing of Lasix and oral torsemide. 04/28/18: Mr. Molina Lasix drip will be increased to 15 mg/h if tolerated today. Diuresis thus far has been good however in treating his severe anasarca a more significant diuresis of 3-4000 mL/day is going to be required to make significant forward progress in his care. 04/29/18: The Lasix drip will be increased to 20 mg/h today and efficacy will be reassessed again tomorrow. Failed to improve diuresis with increased doses of Lasix thus far and hopefully we will achieve our diuretic therapy goal with this final dosage increase. Plan to convert to IV bumetanide given his push doses every 4-6 hours when the dosage for achieving her therapeutic goal is determined. (5) Morbid obesity with BMI of 40.0-44.9, adult Is this a current diagnosis for this admission?: Yes Plan: Patient's morbid obesity certainly plays a comorbidity role in all phases of his health. It complicates his COPD as well as his congestive heart failure and to some degree his atrial fibrillation. A brief discussion of weight loss and dieting was undertaken however the patient has no particular interest in pursuing this at this time. (6) COPD (chronic obstructive pulmonary disease) Qualifiers: COPD type: unspecified COPD Qualified Code(s): J44.9 - Chronic obstructive pulmonary disease, unspecified Is this a current diagnosis for this admission?: Yes Plan: Patient's chronic obstructive pulmonary disease contributes to his respiratory failure because of comorbid factoring. He will be continued on appropriate supplemental oxygen is required to maintain a satisfactory oxygen saturation throughout the remainder of his hospital stay and this is the usual course that he uses at home for his home oxygen therapy. 04/26/18: Patient will be placed on continuous BiPAP except for meals and therapy activities. He was noted to have an increased CO2 on a metabolic profile indicating that he is having a respiratory acidosis and BiPAP will help to resolve this problem. We will monitor his metabolic profile on a daily basis and will be obtaining ABGs as needed. He will be continued on his pulmonary toilet with inhalers and as needed nebulizers. 04/27/18: Patient's son states that he has not been using his BiPAP on a regular basis only when he is sleeping rest the time he sits up in his chair and sleeps without the benefit of the BiPAP. I have instructed son that this is not appropriate and his father continues to be not using his BiPAP or CPAP he needs to notify the nursing staff or the respiratory therapist so that they can get it back on him for appropriate use as this is significantly hindering his overall recovery. I have sent notification to the staff members involved such that we can be sure that the patient's BiPAP is continuous except for times and he is eating or participating in therapeutic activity. 04/28/18: I discussed the increased PCO2 at 79 with the patient and his son. We discussed the possibility that he may require intubation and ventilation however his status appears to be much better than his PCO2 reflects. Dr. Gonzales will see the patient in consult and will help to determine the best course going forward and management of his acute on chronic respiratory failure with hypercapnia. A chest x-ray is obtained to assist Dr. Gonzales and self and evaluating the patient's respiratory status. Daily lab work is pending at the time of this dictation. 04/29/18: Patient's pulmonary disease seems to be much better controlled utilizing the BiPAP on AVAPS settings. The current settings will be continued and adjustments will be made only according to Dr. Gonzales's recommendations. - Time Time Spent with patient: 15-24 minutes Medications reviewed and adjusted accordingly: Yes Anticipated discharge: Home, Home with Homehealth
[2018-04-29] MEDS: ATORVASTATIN CALCIUM 40 MG TABLET PO SCH (22:00)
[2018-04-30] MEDS: NORMAL SALINE 250 ML with FUROSEMIDE 250 MG IV PRN ×4 (04:39→17:38)
[2018-04-30 04:47] LABS: HEMATOCRIT 24.7 % (37.9-51.0); HEMOGLOBIN 8.2 g/dL (13.5-17.0); MEAN CORPUSCULAR HEMOGLOBIN 27.1 pg (27.0-33.4); MEAN CORPUSCULAR HGB CONC 33.2 g/dL (32.0-36.0); MEAN CORPUSCULAR VOLUME 82 fl (80-97); PLATELET COUNT 158 10^3/uL (150-450); RED BLOOD COUNT 3.03 10^6/uL (4.35-5.55); RED CELL DISTRIBUTION WIDTH 17.7 % (11.5-14.0); WHITE BLOOD COUNT 4.8 10^3/uL (4.0-10.5)
[2018-04-30 05:39] LABS: ALANINE AMINOTRANSFERASE 15 U/L (21-72); ALBUMIN 3.1 g/dL (3.5-5.0); ALKALINE PHOSPHATASE 67 U/L (38-126); ASPARTATE AMINO TRANSFERASE 20 U/L (17-59); BILIRUBIN,DIRECT 0.3 mg/dL (0.0-0.4); BILIRUBIN,TOTAL 0.5 mg/dL (0.2-1.3); BLOOD UREA NITROGEN 73 mg/dL (7-20); CALCIUM 8.7 mg/dL (8.4-10.2); CHLORIDE 87 mmol/L (98-107); GLUCOSE 109 mg/dL (75-110); POTASSIUM 3.2 mmol/L (3.6-5.0); SODIUM 143.6 mmol/L (137-145); TOTAL PROTEIN 6.2 g/dL (6.3-8.2)
[2018-04-30 05:59] LABS: ANION GAP 8 (5-19)
[2018-04-30] MEDS: MORPHINE SULFATE SR 15 MG TABLET PO SCH ×2 (06:00→17:38)
[2018-04-30 06:01] LABS: CARBON DIOXIDE 49 mmol/L (22-30)
[2018-04-30] MEDS: BUDESONIDE NEB 0.5 MG/2 ML AMPUL NEB SCH ×2 (08:15→19:36)
[2018-04-30] MEDS: ALBUTEROL SULFATE 0.083% NEB 2.5 MG/3 ML AMPUL NEB PRN (08:16)
[2018-04-30] MEDS: SERTRALINE HCL 50 MG TABLET PO SCH (09:20)
[2018-04-30] MEDS: TIOTROPIUM BROMIDE DPI 5 CAP/KIT (18 MCG/CAP) IH SCH (09:21)
[2018-04-30] MEDS: APIXABAN 5 MG TABLET PO SCH ×2 (09:21→17:38)
[2018-04-30] MEDS: ASPIRIN 81 MG TABLET, CHEWABLE PO SCH (09:21)
[2018-04-30] MEDS: FLUTICASONE/SALMETEROL DISKUS 250-50 MCG/DOSE IH SCH ×2 (09:21→21:44)
[2018-04-30] MEDS: POTASSIUM CHLORIDE 10 MEQ CAPSULE.ER PO SCH ×3 (09:21→17:38)
[2018-04-30] MEDS: DOXYCYCLINE HYCLATE 100 MG TABLET PO SCH ×2 (09:21→17:38)
[2018-04-30] MEDS: DOCUSATE SODIUM 100 MG CAPSULE PO SCH ×2 (09:21→17:38)
[2018-04-30 10:30] LABS: ARTERIAL BLOOD BASE EXCESS 24.6 mmol/L; ARTERIAL BLOOD H2CO3 2.44 mmol/L (1.05-1.35); ARTERIAL BLOOD HCO3 52.6 mmol/L (20-24); ARTERIAL BLOOD O2 SATURATION 91.6 % (94-98); ARTERIAL BLOOD PH 7.43 (7.35-7.45); ARTERIAL BLOOD PO2 64.1 mmHg (80-100)
[2018-04-30 10:32] LABS: ARTERIAL BLOOD FIO2 32%
--- NOTE | 2018-04-30 11:21 | PDOC PROGRESS REPORT ---
Subjective Progress Note for:: 04/30/18 Subjective:: 04/19/18: DANIEL NESS is a 72 year old male with a 2-week history of progressively worsening dyspnea. Additionally he had noted a significant weight gain and fluid retention with swelling in his lower extremities and his hands. He admitted similar episodes numerous times in the past related to his chronic COPD as well as congestive heart failure. He was admitted from the emergency room after being placed on BiPAP for his dyspnea. He is normally treated by his primary care provider, MAURICE ORTIZ DO. 04/25/18: After hospitalization he was treated with intravenous Lasix as well as Zaroxolyn for his heart failure. He actually had a gaining weight from the time he was admitted according to the bed scale measurements however the best determination is that he is most likely lost something along the line of 2 or 3 kg over the last several days. He states he has not actually been able to determine that his swelling is any better but he is breathing a little bit better. He still has massive swelling in his genitalia as well as his abdominal pannus and his bilateral lower extremities and this swelling is accompanied by a significant amount of pain. He is requesting something to help with the pain and I have discussed the alternatives. He frequently takes Percocet 10/325 every 4-6 hours at home to treat his pain. I feel it would be more appropriate to use something that may assist with his pain control as well as also aid in treating his congestive heart failure. To that end I have suggested that we use IV morphine 3 mg every 4 hours as needed pain and that will be provided. He continues to have edema of his fingers and hands and is still significantly dyspneic with any attempted activity. I have discussed his case with Mr. Ness as well as his son and we have agreed to try a new tach with higher dose oral Demadex as well as continued use of Zaroxolyn in hopes of obtaining better diuresis. His IV antibiotics would appear to be unnecessary at this point as the patient does not actually have a cellulitis but instead has just edema of his abdominal pannus and lower extremities with some local erythema associated with them but no actual evidence of infection. As such his IV antibiotics will be discontinued, however as I was unable to observe the patient at the onset of his disease and I cannot be certain that his presentation was always as it is currently I will continue him on doxycycline 100 mg p.o. twice daily for 10 days. This plan was discussed with the patient and his son and we agreed to reassess on a daily basis to determine when it would be appropriate for him to be discharged to home or to a [facility] facility for re[facility]. 04/26/18: Mr. Ness's CHF/edema has failed to respond well to oral torsemide plus Zaroxolyn. He will therefore be placed on a furosemide drip. Initially we will use 10 mg/h and titrate as appropriate based on his weight loss. Patient be weighed every 8 hours and reevaluation will be done every day. He has had better pain control and has been sleeping more but has been able to wake up well and eat. I have discussed the change in therapy with patient's son and with the patient although he was somewhat sleepy during my discussion. I will be decreasing the patient's morphine to 30 mg of MS Contin every 12 hours instead of every 8 hours with maintenance of his breakthrough pain dosage still available. The patient's edema/anasarca are unchanged on today's exam. His pulmonary exam is unchanged and his cardiac exam shows a significantly slower paced rhythm at the time my evaluation today. A Tapia catheter will be placed for the patient's comfort during this effort at diuresis. He will be placed on BiPAP continuously to help improve his metabolic status. 04/27/18: Mr. Ness has substantially improved output with the furosemide drip. Because of the exceptionally good output he will be continued on a furosemide drip with the value of the drip reassessed on a daily basis. We will continue daily monitoring of his electrolytes and hemogram. He is continued to be fairly sleepy and as such he continues to have some CO2 narcosis as he has not been properly using his BiPAP or CPAP on a continuous basis except for eating and therapy activities. I will decrease his morphine to 15 mg of MS Contin every 12 hours and continue the as needed dose of morphine 15 mg p.o. every 4 hours as needed breakthrough pain. I have encouraged him to use his BiPAP/CPAP on a continuous basis and I will reinstruct respiratory therapy to make sure that this is accomplished. 04/28/18: Mr. Ness's urine output was excellent at 2700+ milliliters over 24 hours yesterday. This morning he is much more alert and oriented though slightly confused and exhibiting mild short-term memory deficits. He agrees that his pain is well controlled and that he feels like he can breathe better today but his swelling is still significant. He is able to eat but does not care much for the food that he is restricted to on his current diet. He denies nausea and vomiting. He was compliant with use of his BiPAP last night and has been wearing his BiPAP all the time except for when he is eating or getting up for a therapeutic reason. His PCO2 this morning however skyrocketed up to 79 and as such I have consulted pulmonology (Dr. Charles) to evaluate the patient to determine whether he requires further intervention such as intubation and ventilation or changes to his BiPAP settings. A portable chest x-ray was also ordered and his regular daily lab work is pending at the time of this dictation. On exam his lungs still show bibasilar rales in the lower one fourth of the lung molina and his anasarca edema is essentially unchanged. 04/29/18: Patient's urine output was again excellent over the last 24 hours. He continues to be more alert and less confused when he is awake. At the time my evaluation today he was sleeping after having finished breakfast. He was noted to have eaten somewhat better today and when aroused he agrees that his pain is been much better controlled and that his breathing has significantly improved. He has been using his BiPAP on AVAPS settings with 30% FiO2 causing significant improvement in his hypercapnic state and significantly reducing the degree of chronic respiratory acidosis. Patient's furosemide drip was increased to 15 mg/ h yesterday and an additional increase will be undertaken today to 20 mg/h. Therapy will be reassessed tomorrow and we are reaching our therapeutic goal for diuresis, a conversion to utilization of bumetanide given IV push every 4 or 6 hours can be entertained. 04/30/18: Daniel states that he is feeling much better today. He is sitting up in bed and is very talkative today. He states he has been using his BiPAP (AVAPS) fairly continuously except for when he is eating or up to the bathroom. He was happy to hear that his blood gases were markedly improved this morning and his urine output was significantly increased with the increased dose of IV Lasix per drip. He is proud to show me that his scrotum is significantly less edematous and he can actually digitally find his penis in order to pass urine. He also feels like his swelling is significantly improved over the last several days. He believes his work of breathing has decreased and he feels more comfortable most of the time, because he can take a deeper breath. We discussed his current therapy and have decided to maintain the status quo for now with the only correction being the addition of 20 mEq of potassium chloride after meals as his serum potassium was down to 3.2 this morning. Reason For Visit: ACUTE ON CHRONIC RESP FAILURE, CAD, CELLULITIS Physical Exam Vital Signs: Temp Pulse Resp BP Pulse Ox 97.3 F 60 16 123/59 L 98 04/30/18 07:35 04/30/18 08:15 04/30/18 08:15 04/30/18 07:35 04/30/18 08:15 Pulse Oximeter Continuous Start: 04/27/18 14: 06 Freq: RTQ4 Status: Active Document 04/30/18 08:15 LDA (Rec: 04/30/18 10:27 LDA [id number]) Pulse Oximetry Assessment Oxygen Saturation (92-100) 98 Oxygen Flow Rate 3 Oxygen Delivery Method Nasal Cannula Equipment Usage Equipment in Use Continuous SpO2 Machine # [id number] Intake & Output 04/28/18 04/29/18 04/30/18 23:59 23:59 22:59 Intake Total 580 1871 709 Output Total 2550 3300 650 Balance -1969 -1429 59 Weight 143.6 kg 136 kg General appearance: PRESENT: no acute distress, cooperative Head exam: PRESENT: atraumatic, normocephalic Eye exam: ABSENT: conjunctival injection, periorbital swelling, scleral icterus Ear exam: PRESENT: normal external ear exam. ABSENT: drainage Mouth exam: PRESENT: neck supple, tongue midline Neck exam: ABSENT: thyromegaly, tracheal deviation Respiratory exam: PRESENT: decreased breath sounds - Throughout all lung molina slightly more decreased at the bilateral bases with dullness to percussion in these areas. The dullness on percussion has significantly improved and at the area of dullness is substantially smaller at both bases than on prior exams., rales - Bibasilar rales significantly improved from previous exams., symmetrical , unlabored Cardiovascular exam: PRESENT: RRR. ABSENT: clicks, diastolic murmur, gallop, rubs, systolic murmur Vascular exam: PRESENT: normal capillary refill. ABSENT: pallor GI/Abdominal exam: PRESENT: normal bowel sounds, soft Rectal exam: PRESENT: deferred Gentrourinary exam: PRESENT: scrotal swelling - Patient's scrotal swelling is dramatically reduced by approximately 75% of its previous size.. ABSENT: testicular tenderness Extremities exam: PRESENT: +1 edema - Patient has 1+ edema present in his presacral region and trace to 1+ edema present in his bilateral upper extremities from the distal forearm to the fingers., +2 edema - Patient has 2+ pitting edema to the upper thighs bilaterally. ABSENT: joint swelling Musculoskeletal exam: ABSENT: deformity, dislocation, tenderness Neurological exam: PRESENT: alert, oriented to person, CN II-XII grossly intact. ABSENT: oriented to place, oriented to time, oriented to situation, motor sensory deficit Psychiatric exam: PRESENT: appropriate affect, normal mood, other - Mild confusion especially in areas of short-term memory. Skin exam: ABSENT: jaundice, rash, urticaria Results Laboratory Results: 04/30/18 04:34 04/30/18 04:34 04/30/18 04/30/18 04/30/18 04:34 04:34 10:11 WBC 4.8 RBC 3.03 L Hgb 8.2 L Hct 24.7 L MCV 82 MCH 27.1 MCHC 33.2 RDW 17.7 H Plt Count 158 Carbonic Acid 2.44 H HCO3/H2CO3 Ratio 21:1 ABG pH 7.43 ABG pCO2 81.0 H* ABG pO2 64.1 L ABG HCO3 52.6 H ABG O2 Saturation 91.6 L ABG Base Excess 24.6 FiO2 32% Sodium 143.6 Potassium 3.2 L Chloride 87 L Carbon Dioxide 49 H* Anion Gap 8 BUN 73 H Creatinine 2.00 H Est GFR ( Amer) 40 L Est GFR (Non-Af Amer) 33 L Glucose 109 Calcium 8.7 Magnesium 2.1 Total Bilirubin 0.5 AST 20 ALT 15 L Alkaline Phosphatase 67 Total Protein 6.2 L Albumin 3.1 L 04/19/18 04/20/18 04/20/18 22:07 03:52 10:12 Troponin I 0.019 0.026 0.027 NT-Pro-B Natriuret Pep 3510 H Impressions: Chest X-Ray 04/28/18 00:00 IMPRESSION: Worsening pulmonary edema and/or superimposed pneumonia left lower lobe. Status: Image reviewed by me - Reviewed the patient's chest x-ray from 2017 and I agree with patient has increased pulmonary edema evident on the study. A repeat of the chest x-ray would probably be in order in 2-3 days to reassess the cardiopulmonary effect of therapy. Assessment & Plan - Diagnosis (1) Acute on chronic combined systolic and diastolic CHF (congestive heart failure) Is this a current diagnosis for this admission?: Yes Plan: Patient has significant anasarca associated with his congestive failure. He will be treated with Demadex 100 mg p.o. daily in lieu of his current furosemide therapy. He will be continued on Zaroxolyn 2.5 mg p.o. daily to help promote more aggressive diuresis. We will add morphine 3 mg IV every 4 hours as needed pain to his current regimen and discontinue the use of Percocet. We will follow his CBC, BMP and magnesium levels on a daily basis. 04/26/18: Patient is not had significant increase in urinary output since starting the increased dose of Demadex. With this failure of therapy patient will be treated with a Lasix drip to try to improve his urinary output and eliminate some of his excessive edema. His oral morphine dose will be decreased to 30 mg of MS Contin every 12 hours. He will have 15 mg of MS IR available every 4 hours as needed breakthrough pain. I have discontinued his torsemide, metolazone, metoprolol, losartan and atorvastatin. Patient's laboratory evaluation will be followed every 24 hours and his weight will be recorded every 8 hours. 04/27/18: With patient's increased output utilizing Lasix drip this will be continued on an ongoing basis and reevaluated on a daily basis. We will continue to reevaluate the patient's electrolytes and renal functions every day and will continue closely monitoring his output and weights. 04/28/18: Patient's Lasix drip was continued and he is still diuresing reasonably well. Diuresis with IV Lasix continuous drip will continue in the Lasix drip rate will be increased to 15 mg/h if tolerated. 04/29/18: Lasix drip will be increased to 20 mg/h and efficacy will be reassessed over the next 12-24 hours. Continue daily metabolic profile evaluations. 04/30/18: The patient is tolerating the Lasix drip at the 20 mg/h rate quite well. Because of his significant improvement and marked reduction of his edema in his scrotum and his extremities as well as improvement in his respiratory function ( decreased work of breathing - subjective), his current therapy will be maintained. It was noted that his potassium was down to 3.2 and oral potassium supplementation has been instituted 20 mEq p.o. 3 times daily after meals. Patient's metabolic profile will be followed on a daily basis and therapy will be adjusted as appropriate based on clinical and laboratory findings. (2) Acute and chronic respiratory failure Qualifiers: Respiratory failure complication: hypoxia and hypercapnia Qualified Code(s) : J96.21 - Acute and chronic respiratory failure with hypoxia; J96.22 - Acute and chronic respiratory failure with hypercapnia; J96.22 - Acute and chronic respiratory failure with hypercapnia; J96.22 - Acute and chronic respiratory failure with hypercapnia Is this a current diagnosis for this admission?: Yes Plan: The patient was admitted with acute and chronic respiratory failure and treated initially with BiPAP. After some initial improvement with administration of IV furosemide patient has been able to tolerate being on room air or supplemental oxygen without the use of BiPAP. Patient will be maintained at a reasonable oxygen saturation given his chronic obstructive pulmonary disease some thing in the low 90s would be appropriate. 04/26/18: Patient will be placed on BiPAP as continuously as possible as his CO2 has increased to 42 and his metabolic profile. This would indicate the patient is hyperventilating and retaining carbon dioxide. We will reassess his metabolic profile on a daily basis and will be obtaining ABGs as needed if patient is not showing an adequate response or develops other problems. 04/27/18: I will reinstruct the respiratory therapy staff and the nursing staff that the patient must be on BiPAP continuously and have it off only for eating meals or participating in therapeutic activity. 04/28/18: ABGs this morning showed an increased PCO2 at 79 and a pulmonology consult was ordered with Dr. Gonzales. A portable chest x-ray is ordered and pending at the time of this dictation. Consideration for adjustment of the patient's BiPAP settings or possible intubation and ventilation are the reasons for the pulmonary consultation. Very thankful to Dr. Gonzales for accepting the consultation and providing his valuable insight and recommendations for the treatment of this patient. 04/29/18: Patient's arterial blood gases are significantly improved today with his FiO2 decreased to 30% his respiratory drive is substantially improved and his PCO2 has decreased into the 50s. His PO2 is in the 70s and he is quite comfortable. We will continue utilizing the continuous BiPAP with AVAPS settings as per Dr. Gonzales's recommendations. 04/30/18: Patient's pulmonary disease appeared to have made a dramatic improvement on treatment yesterday, however, I tend to not trust the ABG result that was obtained yesterday. That improvement would have been incredibly dramatic and as such when his arterial blood gases today reflect more his previous treatment gases it was not particularly surprising. I will adjust the patient's FiO2 down to 28% and recheck his arterial blood gases later this afternoon. Further adjustments can be made at that time if required. If patient is seen by Dr. Gonzales today I will certainly defer to his judgment. (3) COPD (chronic obstructive pulmonary disease) Qualifiers: COPD type: unspecified COPD Qualified Code(s): J44.9 - Chronic obstructive pulmonary disease, unspecified Is this a current diagnosis for this admission?: Yes Plan: Patient's chronic obstructive pulmonary disease contributes to his respiratory failure because of comorbid factoring. He will be continued on appropriate supplemental oxygen is required to maintain a satisfactory oxygen saturation throughout the remainder of his hospital stay and this is the usual course that he uses at home for his home oxygen therapy. 04/26/18: Patient will be placed on continuous BiPAP except for meals and therapy activities. He was noted to have an increased CO2 on a metabolic profile indicating that he is having a respiratory acidosis and BiPAP will help to resolve this problem. We will monitor his metabolic profile on a daily basis and will be obtaining ABGs as needed. He will be continued on his pulmonary toilet with inhalers and as needed nebulizers. 04/27/18: Patient's son states that he has not been using his BiPAP on a regular basis only when he is sleeping rest the time he sits up in his chair and sleeps without the benefit of the BiPAP. I have instructed son that this is not appropriate and his father continues to be not using his BiPAP or CPAP he needs to notify the nursing staff or the respiratory therapist so that they can get it back on him for appropriate use as this is significantly hindering his overall recovery. I have sent notification to the staff members involved such that we can be sure that the patient's BiPAP is continuous except for times and he is eating or participating in therapeutic activity. 04/28/18: I discussed the increased PCO2 at 79 with the patient and his son. We discussed the possibility that he may require intubation and ventilation however his status appears to be much better than his PCO2 reflects. Dr. Gonzales will see the patient in consult and will help to determine the best course going forward and management of his acute on chronic respiratory failure with hypercapnia. A chest x-ray is obtained to assist Dr. Gonzales and self and evaluating the patient's respiratory status. Daily lab work is pending at the time of this dictation. 04/29/18: Patient's pulmonary disease seems to be much better controlled utilizing the BiPAP on AVAPS settings. The current settings will be continued and adjustments will be made only according to Dr. Gonzales's recommendations. 04/30/18: Patient's pulmonary disease appeared to have made a dramatic improvement on treatment yesterday, however, I tend to not trust the ABG result that was obtained yesterday. That improvement would have been incredibly dramatic and as such when his arterial blood gases today reflect more his previous treatment gases it was not particularly surprising. I will adjust the patient's FiO2 down to 28% and recheck his arterial blood gases later this afternoon. Further adjustments can be made at that time if required. If patient is seen by Dr. Gonzales today I will certainly defer to his judgment. (4) CKD (chronic kidney disease) stage 3, GFR 30-59 ml/min Is this a current diagnosis for this admission?: Yes Plan: Patient's chronic kidney disease complicates his heart failure by limiting his ability to be adequately diuresed. If the current effort at obtaining diuresis with Demadex is unsuccessful I will consider placing patient on a Bumex drip after withdrawing all of his other medications. 04/26/18: Patient is failed to diurese well with Demadex and therefore he will be started on Lasix drip at 10 mg/min. Diuresis will be monitored by weighing the patient every 8 hours and measuring his urine output and a Tapia catheter. His renal functions will be followed on a daily basis. 04/27/18: Mr. Ness'ely renal functions have remained stable, actually showing mild improvement, thus far on the Lasix drip. His electrolytes have remained in the normal range and therefore he will be continued on the Lasix drip and continue daily monitoring will be undertaken. Diuresis as far has been significantly improved over that of IV push dosing of Lasix and oral torsemide. 04/28/18: Mr. Molina Lasix drip will be increased to 15 mg/h if tolerated today. Diuresis thus far has been good however in treating his severe anasarca a more significant diuresis of 3-4000 mL/day is going to be required to make significant forward progress in his care. 04/29/18: The Lasix drip will be increased to 20 mg/h today and efficacy will be reassessed again tomorrow. Failed to improve diuresis with increased doses of Lasix thus far and hopefully we will achieve our diuretic therapy goal with this final dosage increase. Plan to convert to IV bumetanide given his push doses every 4-6 hours when the dosage for achieving her therapeutic goal is determined. 04/30/18: The patient is tolerating the Lasix drip at the 20 mg/h rate quite well. Because of his significant improvement and marked reduction of his edema in his scrotum and his extremities as well as improvement in his respiratory function ( decreased work of breathing - subjective), his current therapy will be maintained. It was noted that his potassium was down to 3.2 and oral potassium supplementation has been instituted 20 mEq p.o. 3 times daily after meals. We will continue to follow daily labs and reassess his renal functions on a daily basis however it has been noted that his serum creatinine and his GFR have been gradually improving with therapy. (5) Atrial fibrillation Qualifiers: Atrial fibrillation type: paroxysmal Qualified Code(s): I48.0 - Paroxysmal atrial fibrillation Is this a current diagnosis for this admission?: Yes Plan: Patient has a history of atrial fibrillation and is on chronic Eliquis therapy for prevention of strokes. He is also taking amiodarone for rate control as well as metoprolol tartrate. I will be discontinuing both the amiodarone and metoprolol tartrate to better treat his congestive heart failure with metoprolol succinate. He will be started on Toprol-XL 100 mg p.o. daily beginning tomorrow. 04/26/18: The patient's Toprol-XL was discontinued as the patient will be on a Lasix drip and his blood pressure will need to be monitored closely with no interference in his diuretic treatment due to hypotension caused by medications. I will monitor his heart rate closely while he is being diuresed and I would consider treating any significant tachycardia with the addition of IV digoxin. (6) Morbid obesity with BMI of 40.0-44.9, adult Is this a current diagnosis for this admission?: Yes Plan: Patient's morbid obesity certainly plays a comorbidity role in all phases of his health. It complicates his COPD as well as his congestive heart failure and to some degree his atrial fibrillation. A brief discussion of weight loss and dieting was undertaken however the patient has no particular interest in pursuing this at this time. - Time Time Spent with patient: Less than 15 minutes Medications reviewed and adjusted accordingly: Yes - Add potassium chloride 20 mEq p.o. 3 times daily the after meals.
[2018-04-30 17:21] LABS: ARTERIAL BLOOD BASE EXCESS 21.9 mmol/L; ARTERIAL BLOOD H2CO3 2.13 mmol/L (1.05-1.35); ARTERIAL BLOOD HCO3 48.7 mmol/L (20-24); ARTERIAL BLOOD O2 SATURATION 91.4 % (94-98); ARTERIAL BLOOD PH 7.46 (7.35-7.45); ARTERIAL BLOOD PO2 61.1 mmHg (80-100); ARTERIAL BLOOD TOTAL CO2 50.9 mmol/L (23-27)
[2018-04-30 17:28] LABS: ARTERIAL BLOOD FIO2 28%
[2018-04-30 17:30] LABS: ARTERIAL BLOOD PCO2 70.7 mmHg (35-45)
[2018-04-30] MEDS: ATORVASTATIN CALCIUM 40 MG TABLET PO SCH (21:44)
[2018-04-30] MEDS: MORPHINE SULFATE 10 MG/5 ML ORAL SOLUTION UDCUP PO PRN (23:45)
[2018-05-01] MEDS: MORPHINE SULFATE SR 15 MG TABLET PO SCH ×2 (05:13→18:21)
[2018-05-01 05:20] LABS: BLOOD UREA NITROGEN 74 mg/dL (7-20); CHLORIDE 85 mmol/L (98-107); GLUCOSE 89 mg/dL (75-110); POTASSIUM 3.3 mmol/L (3.6-5.0); SODIUM 144.9 mmol/L (137-145)
[2018-05-01 05:21] LABS: HEMATOCRIT 24.3 % (37.9-51.0); HEMOGLOBIN 8.1 g/dL (13.5-17.0); MEAN CORPUSCULAR HGB CONC 33.3 g/dL (32.0-36.0); MEAN CORPUSCULAR VOLUME 81 fl (80-97); PLATELET COUNT 156 10^3/uL (150-450); RED CELL DISTRIBUTION WIDTH 18.2 % (11.5-14.0); WHITE BLOOD COUNT 4.5 10^3/uL (4.0-10.5)
[2018-05-01 05:31] LABS: ANION GAP 13 (5-19)
[2018-05-01 05:51] LABS: CARBON DIOXIDE 47 mmol/L (22-30)
[2018-05-01] MEDS: NORMAL SALINE 250 ML with FUROSEMIDE 250 MG IV PRN ×4 (05:58→20:04)
[2018-05-01 07:11] LABS: ARTERIAL BLOOD BASE EXCESS 23.3 mmol/L; ARTERIAL BLOOD H2CO3 2.13 mmol/L (1.05-1.35); ARTERIAL BLOOD O2 SATURATION 95.7 % (94-98); ARTERIAL BLOOD PH 7.47 (7.35-7.45); ARTERIAL BLOOD PO2 78.5 mmHg (80-100); ARTERIAL BLOOD TOTAL CO2 52.2 mmol/L (23-27)
[2018-05-01 07:12] LABS: ARTERIAL BLOOD FIO2 4L
[2018-05-01 07:13] LABS: ARTERIAL BLOOD PCO2 70.6 mmHg (35-45)
[2018-05-01] MEDS: ALBUTEROL SULFATE 0.083% NEB 2.5 MG/3 ML AMPUL NEB PRN ×2 (08:37→20:12)
[2018-05-01] MEDS: BUDESONIDE NEB 0.5 MG/2 ML AMPUL NEB SCH ×2 (08:38→20:12)
[2018-05-01] MEDS: ASPIRIN 81 MG TABLET, CHEWABLE PO SCH (09:18)
[2018-05-01] MEDS: POTASSIUM CHLORIDE 10 MEQ CAPSULE.ER PO SCH ×3 (09:18→18:21)
[2018-05-01] MEDS: DOXYCYCLINE HYCLATE 100 MG TABLET PO SCH ×2 (09:18→18:21)
[2018-05-01] MEDS: DOCUSATE SODIUM 100 MG CAPSULE PO SCH ×2 (09:18→18:21)
[2018-05-01] MEDS: FLUTICASONE/SALMETEROL DISKUS 250-50 MCG/DOSE IH SCH ×2 (09:18→21:56)
[2018-05-01] MEDS: APIXABAN 5 MG TABLET PO SCH ×2 (09:18→18:21)
[2018-05-01] MEDS: SERTRALINE HCL 50 MG TABLET PO SCH (09:18)
[2018-05-01] MEDS: TIOTROPIUM BROMIDE DPI 5 CAP/KIT (18 MCG/CAP) IH SCH (10:39)
[2018-05-01] MEDS: MORPHINE SULFATE 10 MG/5 ML ORAL SOLUTION UDCUP PO PRN (13:11)
--- NOTE | 2018-05-01 15:25 | PDOC PROGRESS REPORT ---
Subjective Progress Note for:: 05/01/18 Subjective:: 04/19/18: DANIEL NESS is a 72 year old male with a 2-week history of progressively worsening dyspnea. Additionally he had noted a significant weight gain and fluid retention with swelling in his lower extremities and his hands. He admitted similar episodes numerous times in the past related to his chronic COPD as well as congestive heart failure. He was admitted from the emergency room after being placed on BiPAP for his dyspnea. He is normally treated by his primary care provider, MAURICE ORTIZ DO. 04/25/18: After hospitalization he was treated with intravenous Lasix as well as Zaroxolyn for his heart failure. He actually had a gaining weight from the time he was admitted according to the bed scale measurements however the best determination is that he is most likely lost something along the line of 2 or 3 kg over the last several days. He states he has not actually been able to determine that his swelling is any better but he is breathing a little bit better. He still has massive swelling in his genitalia as well as his abdominal pannus and his bilateral lower extremities and this swelling is accompanied by a significant amount of pain. He is requesting something to help with the pain and I have discussed the alternatives. He frequently takes Percocet 10/325 every 4-6 hours at home to treat his pain. I feel it would be more appropriate to use something that may assist with his pain control as well as also aid in treating his congestive heart failure. To that end I have suggested that we use IV morphine 3 mg every 4 hours as needed pain and that will be provided. He continues to have edema of his fingers and hands and is still significantly dyspneic with any attempted activity. I have discussed his case with Mr. Ness as well as his son and we have agreed to try a new tach with higher dose oral Demadex as well as continued use of Zaroxolyn in hopes of obtaining better diuresis. His IV antibiotics would appear to be unnecessary at this point as the patient does not actually have a cellulitis but instead has just edema of his abdominal pannus and lower extremities with some local erythema associated with them but no actual evidence of infection. As such his IV antibiotics will be discontinued, however as I was unable to observe the patient at the onset of his disease and I cannot be certain that his presentation was always as it is currently I will continue him on doxycycline 100 mg p.o. twice daily for 10 days. This plan was discussed with the patient and his son and we agreed to reassess on a daily basis to determine when it would be appropriate for him to be discharged to home or to a senior care facility for rehab. 04/26/18: Mr. Ness's CHF/edema has failed to respond well to oral torsemide plus Zaroxolyn. He will therefore be placed on a furosemide drip. Initially we will use 10 mg/h and titrate as appropriate based on his weight loss. Patient be weighed every 8 hours and reevaluation will be done every day. He has had better pain control and has been sleeping more but has been able to wake up well and eat. I have discussed the change in therapy with patient's son and with the patient although he was somewhat sleepy during my discussion. I will be decreasing the patient's morphine to 30 mg of MS Contin every 12 hours instead of every 8 hours with maintenance of his breakthrough pain dosage still available. The patient's edema/anasarca are unchanged on today's exam. His pulmonary exam is unchanged and his cardiac exam shows a significantly slower paced rhythm at the time my evaluation today. A Tapia catheter will be placed for the patient's comfort during this effort at diuresis. He will be placed on BiPAP continuously to help improve his metabolic status. 04/27/18: Mr. Ness has substantially improved output with the furosemide drip. Because of the exceptionally good output he will be continued on a furosemide drip with the value of the drip reassessed on a daily basis. We will continue daily monitoring of his electrolytes and hemogram. He is continued to be fairly sleepy and as such he continues to have some CO2 narcosis as he has not been properly using his BiPAP or CPAP on a continuous basis except for eating and therapy activities. I will decrease his morphine to 15 mg of MS Contin every 12 hours and continue the as needed dose of morphine 15 mg p.o. every 4 hours as needed breakthrough pain. I have encouraged him to use his BiPAP/CPAP on a continuous basis and I will reinstruct respiratory therapy to make sure that this is accomplished. 04/28/18: Mr. Ness's urine output was excellent at 2700+ milliliters over 24 hours yesterday. This morning he is much more alert and oriented though slightly confused and exhibiting mild short-term memory deficits. He agrees that his pain is well controlled and that he feels like he can breathe better today but his swelling is still significant. He is able to eat but does not care much for the food that he is restricted to on his current diet. He denies nausea and vomiting. He was compliant with use of his BiPAP last night and has been wearing his BiPAP all the time except for when he is eating or getting up for a therapeutic reason. His PCO2 this morning however skyrocketed up to 79 and as such I have consulted pulmonology (Dr. Charles) to evaluate the patient to determine whether he requires further intervention such as intubation and ventilation or changes to his BiPAP settings. A portable chest x-ray was also ordered and his regular daily lab work is pending at the time of this dictation. On exam his lungs still show bibasilar rales in the lower one fourth of the lung molina and his anasarca edema is essentially unchanged. 04/29/18: Patient's urine output was again excellent over the last 24 hours. He continues to be more alert and less confused when he is awake. At the time my evaluation today he was sleeping after having finished breakfast. He was noted to have eaten somewhat better today and when aroused he agrees that his pain is been much better controlled and that his breathing has significantly improved. He has been using his BiPAP on AVAPS settings with 30% FiO2 causing significant improvement in his hypercapnic state and significantly reducing the degree of chronic respiratory acidosis. Patient's furosemide drip was increased to 15 mg/ h yesterday and an additional increase will be undertaken today to 20 mg/h. Therapy will be reassessed tomorrow and we are reaching our therapeutic goal for diuresis, a conversion to utilization of bumetanide given IV push every 4 or 6 hours can be entertained. 04/30/18: Daniel states that he is feeling much better today. He is sitting up in bed and is very talkative today. He states he has been using his BiPAP (AVAPS) fairly continuously except for when he is eating or up to the bathroom. He was happy to hear that his blood gases were markedly improved this morning and his urine output was significantly increased with the increased dose of IV Lasix per drip. He is proud to show me that his scrotum is significantly less edematous and he can actually digitally find his penis in order to pass urine. He also feels like his swelling is significantly improved over the last several days. He believes his work of breathing has decreased and he feels more comfortable most of the time, because he can take a deeper breath. We discussed his current therapy and have decided to maintain the status quo for now with the only correction being the addition of 20 mEq of potassium chloride after meals as his serum potassium was down to 3.2 this morning. 05/01/18: Daniel continues to do well with his breathing and his improved state of mentation and alertness. He can see that he has significantly decreased swelling from that which he had noted yesterday. His legs are less swollen and the swelling does not come up as high. Examination reveals the bilateral 2+ pitting edema to come only up to the mid thigh on today's evaluation. He states he is pain is well controlled and his appetite has improved. He was pleased to hear that his renal functions seem to be improving with the therapy. We have agreed to continue with the Lasix drip for another day at least and he understands that he will have a different doctor tomorrow. He has been able to participate in physical therapy and he is gradually improving his strength. We will increase the respiratory rate on his AVAPS and recheck his arterial blood gases later this afternoon. If his PO2 improves and his PCO2 decreases a decrease in FiO2 to 25% would be the next step. Reason For Visit: ACUTE ON CHRONIC RESP FAILURE, CAD, CELLULITIS Physical Exam Vital Signs: Temp Pulse Resp BP Pulse Ox 97.8 F 93 20 108/53 L 97 05/01/18 11:38 05/01/18 11:38 05/01/18 11:38 05/01/18 11:38 05/01/18 11:38 Pulse Oximeter Continuous Start: 04/27/18 14: 06 Freq: RTQ4 Status: Active Document 05/01/18 11:10 [facility] (Rec: 05/01/18 11:11 [facility] [id number]) Pulse Oximetry Assessment Oxygen Saturation (92-100) 96 Oxygen Delivery Method AVAP Fraction of Inspired Oxygen (FIO2) 28 Equipment Usage Equipment in Use Continuous SpO2 Machine # 5 Intake & Output 04/30/18 04/30/18 05/01/18 00:59 23:59 23:59 Intake Total 823 Output Total 2500 Balance -1677 Weight 124.6 kg General appearance: PRESENT: no acute distress, cooperative, obese Head exam: PRESENT: atraumatic, normocephalic Eye exam: PRESENT: conjunctiva pink, EOMI Ear exam: PRESENT: normal external ear exam. ABSENT: drainage Mouth exam: PRESENT: moist, neck supple Neck exam: PRESENT: JVD - Bilateral at 45 degrees. ABSENT: thyromegaly, tracheal deviation Respiratory exam: PRESENT: rales - Bibasilar rales persist, symmetrical, unlabored. ABSENT: rhonchi, wheezes Cardiovascular exam: PRESENT: RRR. ABSENT: clicks, gallop, rubs Vascular exam: PRESENT: normal capillary refill. ABSENT: pallor GI/Abdominal exam: PRESENT: normal bowel sounds, soft, other - Significantly improved but still present edema of the abdominal pannus.. ABSENT: tenderness Rectal exam: PRESENT: deferred Gentrourinary exam: PRESENT: scrotal swelling - Scrotal swelling is significantly improved again today. Extremities exam: PRESENT: +2 edema - 2+ edema of the bilateral lower extremities with pitting extending to the mid thighs. It is noted that the edema of the upper extremities has resolved at this point.. ABSENT: joint swelling Musculoskeletal exam: ABSENT: deformity, dislocation, tenderness Neurological exam: PRESENT: alert, oriented to person, oriented to place, oriented to situation, CN II-XII grossly intact. ABSENT: oriented to time, motor sensory deficit Psychiatric exam: PRESENT: appropriate affect, normal mood Skin exam: PRESENT: dry, warm. ABSENT: jaundice, rash, urticaria Results Laboratory Results: 05/01/18 04:08 05/01/18 04:08 04/30/18 05/01/18 05/01/18 17:05 04:08 04:08 WBC 4.5 RBC 3.00 L Hgb 8.1 L Hct 24.3 L MCV 81 MCH 27.0 MCHC 33.3 RDW 18.2 H Plt Count 156 Carbonic Acid 2.13 H HCO3/H2CO3 Ratio 22:1 ABG pH 7.46 H ABG pCO2 70.7 H* ABG pO2 61.1 L ABG HCO3 48.7 H ABG O2 Saturation 91.4 L ABG Base Excess 21.9 FiO2 28% Sodium 144.9 Potassium 3.3 L Chloride 85 L Carbon Dioxide 47 H* Anion Gap 13 BUN 74 H Creatinine 1.90 H Est GFR ( Amer) 42 L Est GFR (Non-Af Amer) 35 L Glucose 89 Calcium 9.0 Magnesium 2.0 05/01/18 05/01/18 06:15 06:45 WBC RBC Hgb Hct MCV MCH MCHC RDW Plt Count Carbonic Acid Cancelled 2.13 H HCO3/H2CO3 Ratio Cancelled 23:1 ABG pH Cancelled 7.47 H ABG pCO2 Cancelled 70.6 H* ABG pO2 Cancelled 78.5 L ABG HCO3 Cancelled 50.0 H ABG O2 Saturation Cancelled 95.7 ABG Base Excess Cancelled 23.3 FiO2 Cancelled 4L Sodium Potassium Chloride Carbon Dioxide Anion Gap BUN Creatinine Est GFR ( Amer) Est GFR (Non-Af Amer) Glucose Calcium Magnesium 04/19/18 04/20/18 04/20/18 22:07 03:52 10:12 Troponin I 0.019 0.026 0.027 NT-Pro-B Natriuret Pep 3510 H Impressions: Chest X-Ray 04/28/18 00:00 IMPRESSION: Worsening pulmonary edema and/or superimposed pneumonia left lower lobe. Assessment & Plan - Diagnosis (1) Acute on chronic combined systolic and diastolic CHF (congestive heart failure) Is this a current diagnosis for this admission?: Yes Plan: Patient has significant anasarca associated with his congestive failure. He will be treated with Demadex 100 mg p.o. daily in lieu of his current furosemide therapy. He will be continued on Zaroxolyn 2.5 mg p.o. daily to help promote more aggressive diuresis. We will add morphine 3 mg IV every 4 hours as needed pain to his current regimen and discontinue the use of Percocet. We will follow his CBC, BMP and magnesium levels on a daily basis. 04/26/18: Patient is not had significant increase in urinary output since starting the increased dose of Demadex. With this failure of therapy patient will be treated with a Lasix drip to try to improve his urinary output and eliminate some of his excessive edema. His oral morphine dose will be decreased to 30 mg of MS Contin every 12 hours. He will have 15 mg of MS IR available every 4 hours as needed breakthrough pain. I have discontinued his torsemide, metolazone, metoprolol, losartan and atorvastatin. Patient's laboratory evaluation will be followed every 24 hours and his weight will be recorded every 8 hours. 04/27/18: With patient's increased output utilizing Lasix drip this will be continued on an ongoing basis and reevaluated on a daily basis. We will continue to reevaluate the patient's electrolytes and renal functions every day and will continue closely monitoring his output and weights. 04/28/18: Patient's Lasix drip was continued and he is still diuresing reasonably well. Diuresis with IV Lasix continuous drip will continue in the Lasix drip rate will be increased to 15 mg/h if tolerated. 04/29/18: Lasix drip will be increased to 20 mg/h and efficacy will be reassessed over the next 12-24 hours. Continue daily metabolic profile evaluations. 04/30/18: The patient is tolerating the Lasix drip at the 20 mg/h rate quite well. Because of his significant improvement and marked reduction of his edema in his scrotum and his extremities as well as improvement in his respiratory function ( decreased work of breathing - subjective), his current therapy will be maintained. It was noted that his potassium was down to 3.2 and oral potassium supplementation has been instituted 20 mEq p.o. 3 times daily after meals. Patient's metabolic profile will be followed on a daily basis and therapy will be adjusted as appropriate based on clinical and laboratory findings. 05/01/18: No plans for change in the patient's current Lasix drip or potassium supplementations are made for today. Patient's morphine and other medications will be reordered as required. (2) Acute and chronic respiratory failure Qualifiers: Respiratory failure complication: hypoxia and hypercapnia Qualified Code(s) : J96.21 - Acute and chronic respiratory failure with hypoxia; J96.22 - Acute and chronic respiratory failure with hypercapnia; J96.22 - Acute and chronic respiratory failure with hypercapnia; J96.22 - Acute and chronic respiratory failure with hypercapnia Is this a current diagnosis for this admission?: Yes Plan: The patient was admitted with acute and chronic respiratory failure and treated initially with BiPAP. After some initial improvement with administration of IV furosemide patient has been able to tolerate being on room air or supplemental oxygen without the use of BiPAP. Patient will be maintained at a reasonable oxygen saturation given his chronic obstructive pulmonary disease some thing in the low 90s would be appropriate. 04/26/18: Patient will be placed on BiPAP as continuously as possible as his CO2 has increased to 42 and his metabolic profile. This would indicate the patient is hyperventilating and retaining carbon dioxide. We will reassess his metabolic profile on a daily basis and will be obtaining ABGs as needed if patient is not showing an adequate response or develops other problems. 04/27/18: I will reinstruct the respiratory therapy staff and the nursing staff that the patient must be on BiPAP continuously and have it off only for eating meals or participating in therapeutic activity. 04/28/18: ABGs this morning showed an increased PCO2 at 79 and a pulmonology consult was ordered with Dr. Gonzales. A portable chest x-ray is ordered and pending at the time of this dictation. Consideration for adjustment of the patient's BiPAP settings or possible intubation and ventilation are the reasons for the pulmonary consultation. Very thankful to Dr. Gonzales for accepting the consultation and providing his valuable insight and recommendations for the treatment of this patient. 04/29/18: Patient's arterial blood gases are significantly improved today with his FiO2 decreased to 30% his respiratory drive is substantially improved and his PCO2 has decreased into the 50s. His PO2 is in the 70s and he is quite comfortable. We will continue utilizing the continuous BiPAP with AVAPS settings as per Dr. Gonzales's recommendations. 04/30/18: Patient's pulmonary disease appeared to have made a dramatic improvement on treatment yesterday, however, I tend to not trust the ABG result that was obtained yesterday. That improvement would have been incredibly dramatic and as such when his arterial blood gases today reflect more his previous treatment gases it was not particularly surprising. I will adjust the patient's FiO2 down to 28% and recheck his arterial blood gases later this afternoon. Further adjustments can be made at that time if required. If patient is seen by Dr. Gonzales today I will certainly defer to his judgment. 05/01/18: Patient has shown a mild improvement in his overall mentation and continues to have significantly improved respirations and more comfort with breathing. His BiPAP will be altered to increase his respiratory rate 16 with continuation of his other settings unchanged. ABGs be rechecked this afternoon and further adjustments may be in order at that time. (3) COPD (chronic obstructive pulmonary disease) Qualifiers: COPD type: unspecified COPD Qualified Code(s): J44.9 - Chronic obstructive pulmonary disease, unspecified Is this a current diagnosis for this admission?: Yes Plan: Patient's chronic obstructive pulmonary disease contributes to his respiratory failure because of comorbid factoring. He will be continued on appropriate supplemental oxygen is required to maintain a satisfactory oxygen saturation throughout the remainder of his hospital stay and this is the usual course that he uses at home for his home oxygen therapy. 04/26/18: Patient will be placed on continuous BiPAP except for meals and therapy activities. He was noted to have an increased CO2 on a metabolic profile indicating that he is having a respiratory acidosis and BiPAP will help to resolve this problem. We will monitor his metabolic profile on a daily basis and will be obtaining ABGs as needed. He will be continued on his pulmonary toilet with inhalers and as needed nebulizers. 04/27/18: Patient's son states that he has not been using his BiPAP on a regular basis only when he is sleeping rest the time he sits up in his chair and sleeps without the benefit of the BiPAP. I have instructed son that this is not appropriate and his father continues to be not using his BiPAP or CPAP he needs to notify the nursing staff or the respiratory therapist so that they can get it back on him for appropriate use as this is significantly hindering his overall recovery. I have sent notification to the staff members involved such that we can be sure that the patient's BiPAP is continuous except for times and he is eating or participating in therapeutic activity. 04/28/18: I discussed the increased PCO2 at 79 with the patient and his son. We discussed the possibility that he may require intubation and ventilation however his status appears to be much better than his PCO2 reflects. Dr. Gonzales will see the patient in consult and will help to determine the best course going forward and management of his acute on chronic respiratory failure with hypercapnia. A chest x-ray is obtained to assist Dr. Gonzales and self and evaluating the patient's respiratory status. Daily lab work is pending at the time of this dictation. 04/29/18: Patient's pulmonary disease seems to be much better controlled utilizing the BiPAP on AVAPS settings. The current settings will be continued and adjustments will be made only according to Dr. Gonzales's recommendations. 04/30/18: Patient's pulmonary disease appeared to have made a dramatic improvement on treatment yesterday, however, I tend to not trust the ABG result that was obtained yesterday. That improvement would have been incredibly dramatic and as such when his arterial blood gases today reflect more his previous treatment gases it was not particularly surprising. I will adjust the patient's FiO2 down to 28% and recheck his arterial blood gases later this afternoon. Further adjustments can be made at that time if required. If patient is seen by Dr. Gonzales today I will certainly defer to his judgment. 05/01/18: The patient's AVAPS will be adjusted to an increased rate of 16 with all other settings continued as at present. ABGs will be checked later today and further adjustments may be in order. (4) CKD (chronic kidney disease) stage 3, GFR 30-59 ml/min Is this a current diagnosis for this admission?: Yes Plan: Patient's chronic kidney disease complicates his heart failure by limiting his ability to be adequately diuresed. If the current effort at obtaining diuresis with Demadex is unsuccessful I will consider placing patient on a Bumex drip after withdrawing all of his other medications. 04/26/18: Patient is failed to diurese well with Demadex and therefore he will be started on Lasix drip at 10 mg/min. Diuresis will be monitored by weighing the patient every 8 hours and measuring his urine output and a Tapia catheter. His renal functions will be followed on a daily basis. 04/27/18: Mr. Molina renal functions have remained stable, actually showing mild improvement, thus far on the Lasix drip. His electrolytes have remained in the normal range and therefore he will be continued on the Lasix drip and continue daily monitoring will be undertaken. Diuresis as far has been significantly improved over that of IV push dosing of Lasix and oral torsemide. 04/28/18: Mr. Molina Lasix drip will be increased to 15 mg/h if tolerated today. Diuresis thus far has been good however in treating his severe anasarca a more significant diuresis of 3-4000 mL/day is going to be required to make significant forward progress in his care. 04/29/18: The Lasix drip will be increased to 20 mg/h today and efficacy will be reassessed again tomorrow. Failed to improve diuresis with increased doses of Lasix thus far and hopefully we will achieve our diuretic therapy goal with this final dosage increase. Plan to convert to IV bumetanide given his push doses every 4-6 hours when the dosage for achieving her therapeutic goal is determined. 04/30/18: The patient is tolerating the Lasix drip at the 20 mg/h rate quite well. Because of his significant improvement and marked reduction of his edema in his scrotum and his extremities as well as improvement in his respiratory function ( decreased work of breathing - subjective), his current therapy will be maintained. It was noted that his potassium was down to 3.2 and oral potassium supplementation has been instituted 20 mEq p.o. 3 times daily after meals. We will continue to follow daily labs and reassess his renal functions on a daily basis however it has been noted that his serum creatinine and his GFR have been gradually improving with therapy. 05/01/18: Patient will be continued on the current Lasix drip. His serum potassium increased to 3.3 today and his oral supplementation will be continued as currently ordered. Laboratory values will be reassessed tomorrow. (5) Atrial fibrillation Qualifiers: Atrial fibrillation type: paroxysmal Qualified Code(s): I48.0 - Paroxysmal atrial fibrillation Is this a current diagnosis for this admission?: Yes Plan: Patient has a history of atrial fibrillation and is on chronic Eliquis therapy for prevention of strokes. He is also taking amiodarone for rate control as well as metoprolol tartrate. I will be discontinuing both the amiodarone and metoprolol tartrate to better treat his congestive heart failure with metoprolol succinate. He will be started on Toprol-XL 100 mg p.o. daily beginning tomorrow. 04/26/18: The patient's Toprol-XL was discontinued as the patient will be on a Lasix drip and his blood pressure will need to be monitored closely with no interference in his diuretic treatment due to hypotension caused by medications. I will monitor his heart rate closely while he is being diuresed and I would consider treating any significant tachycardia with the addition of IV digoxin. (6) Morbid obesity with BMI of 40.0-44.9, adult Is this a current diagnosis for this admission?: Yes Plan: Patient's morbid obesity certainly plays a comorbidity role in all phases of his health. It complicates his COPD as well as his congestive heart failure and to some degree his atrial fibrillation. A brief discussion of weight loss and dieting was undertaken however the patient has no particular interest in pursuing this at this time. - Time Time Spent with patient: Less than 15 minutes Medications reviewed and adjusted accordingly: Yes
[2018-05-01 16:46] LABS: ARTERIAL BLOOD BASE EXCESS 26.6 mmol/L; ARTERIAL BLOOD H2CO3 2.75 mmol/L (1.05-1.35); ARTERIAL BLOOD HCO3 55.5 mmol/L (20-24); ARTERIAL BLOOD PO2 47.6 mmHg (80-100); ARTERIAL BLOOD TOTAL CO2 58.3 mmol/L (23-27)
[2018-05-01 16:53] LABS: ARTERIAL BLOOD FIO2 4L; ARTERIAL BLOOD PCO2 91.4 mmHg (35-45)
[2018-05-01] MEDS: ATORVASTATIN CALCIUM 40 MG TABLET PO SCH (21:56)
[2018-05-02] MEDS: MORPHINE SULFATE 10 MG/5 ML ORAL SOLUTION UDCUP PO PRN ×3 (02:01→21:22)
[2018-05-02 05:17] LABS: HEMATOCRIT 23.9 % (37.9-51.0); HEMOGLOBIN 8.1 g/dL (13.5-17.0); MEAN CORPUSCULAR HEMOGLOBIN 27.3 pg (27.0-33.4); MEAN CORPUSCULAR HGB CONC 33.8 g/dL (32.0-36.0); MEAN CORPUSCULAR VOLUME 81 fl (80-97); PLATELET COUNT 150 10^3/uL (150-450); RED BLOOD COUNT 2.95 10^6/uL (4.35-5.55); RED CELL DISTRIBUTION WIDTH 17.8 % (11.5-14.0); WHITE BLOOD COUNT 4.4 10^3/uL (4.0-10.5)
[2018-05-02] MEDS: MORPHINE SULFATE SR 15 MG TABLET PO SCH ×2 (05:19→17:13)
[2018-05-02 05:33] LABS: BLOOD UREA NITROGEN 75 mg/dL (7-20); CHLORIDE 84 mmol/L (98-107); GLUCOSE 86 mg/dL (75-110); POTASSIUM 3.4 mmol/L (3.6-5.0); SODIUM 143.3 mmol/L (137-145)
[2018-05-02 06:21] LABS: ANION GAP 10 (5-19)
[2018-05-02 06:23] LABS: CARBON DIOXIDE 49 mmol/L (22-30)
[2018-05-02 06:27] LABS: ARTERIAL BLOOD BASE EXCESS 23.8 mmol/L; ARTERIAL BLOOD H2CO3 1.69 mmol/L (1.05-1.35); ARTERIAL BLOOD HCO3 48.7 mmol/L (20-24); ARTERIAL BLOOD O2 SATURATION 98.4 % (94-98); ARTERIAL BLOOD PH 7.56 (7.35-7.45); ARTERIAL BLOOD PO2 108.5 mmHg (80-100); ARTERIAL BLOOD TOTAL CO2 50.4 mmol/L (23-27)
[2018-05-02 06:34] LABS: ARTERIAL BLOOD FIO2 28%
[2018-05-02] MEDS: ALBUTEROL SULFATE 0.083% NEB 2.5 MG/3 ML AMPUL NEB PRN ×2 (07:55→20:14)
[2018-05-02] MEDS: BUDESONIDE NEB 0.5 MG/2 ML AMPUL NEB SCH ×2 (07:55→20:14)
[2018-05-02] MEDS: POTASSIUM CHLORIDE 10 MEQ CAPSULE.ER PO SCH ×3 (08:45→17:13)
[2018-05-02] MEDS: DOXYCYCLINE HYCLATE 100 MG TABLET PO SCH ×2 (08:46→17:13)
[2018-05-02] MEDS: ASPIRIN 81 MG TABLET, CHEWABLE PO SCH (10:03)
[2018-05-02] MEDS: DOCUSATE SODIUM 100 MG CAPSULE PO SCH ×2 (10:03→17:13)
[2018-05-02] MEDS: APIXABAN 5 MG TABLET PO SCH ×2 (10:03→17:13)
[2018-05-02] MEDS: SERTRALINE HCL 50 MG TABLET PO SCH (10:03)
[2018-05-02] MEDS: TIOTROPIUM BROMIDE DPI 5 CAP/KIT (18 MCG/CAP) IH SCH (10:04)
[2018-05-02] MEDS: FLUTICASONE/SALMETEROL DISKUS 250-50 MCG/DOSE IH SCH ×2 (10:04→21:21)
[2018-05-02] MEDS: NORMAL SALINE 250 ML with FUROSEMIDE 250 MG IV PRN ×4 (10:09→23:45)
--- NOTE | 2018-05-02 12:46 | PDOC PROGRESS REPORT ---
Subjective Progress Note for:: 05/02/18 Subjective:: 72-year-old male with recurrent hospitalization, with acute on chronic respiratory failure/CHF exacerbation. Patient had persistent edema refractory to diuresis and required Lasix drip. Currently on IV Lasix at 20 mg/h. Feels edema has been steadily improving, also with decreasing testicular swelling. No significant shortness of breath, no orthopnea or PND, no fever or chills. Son at bedside. Reason For Visit: ACUTE ON CHRONIC RESP FAILURE, CAD, CELLULITIS Physical Exam Vital Signs: Temp Pulse Resp BP Pulse Ox 97.7 F 60 20 107/56 L 95 05/02/18 07:36 05/02/18 07:55 05/02/18 07:55 05/02/18 07:36 05/02/18 07:55 Pulse Oximeter Continuous Start: 04/27/18 14: 06 Freq: RTQ4 Status: Active Document 05/02/18 07:55 [facility] (Rec: 05/02/18 08:33 [facility] [id number]) Pulse Oximetry Assessment Oxygen Saturation (92-100) 95 Oxygen Delivery Method AVAP Fraction of Inspired Oxygen (FIO2) 28 Equipment Usage Equipment in Use Continuous SpO2 Machine # [id number] Intake & Output 05/01/18 05/02/18 05/03/18 06:59 06:59 06:59 Intake Total 1918 2359 250 Output Total 4550 2175 700 Balance -2632 184 -450 Weight 124.6 kg 130 kg General appearance: PRESENT: cooperative, no acute distress, morbidly obese Head exam: PRESENT: atraumatic, normocephalic Respiratory exam: PRESENT: decreased breath sounds at bases, symmetrical. ABSENT: wheezes Cardiovascular exam: PRESENT: RRR, +S1, +S2, systolic murmur - 1/6 GI/Abdominal exam: PRESENT: Soft, normal bowel sounds. ABSENT: ascites, tenderness Extremities exam: PRESENT: +2 edema Neurological exam: PRESENT: awake - Awake, oriented to person, oriented to place , oriented to situation Psychiatric exam: PRESENT: appropriate affect, normal mood Skin exam: PRESENT: other - Dressing over the ulcer anterior left leg clean, dry , intact. Results Laboratory Results: 05/02/18 04:15 05/02/18 04:15 05/01/18 05/02/18 05/02/18 16:35 04:15 04:15 WBC 4.4 RBC 2.95 L Hgb 8.1 L Hct 23.9 L MCV 81 MCH 27.3 MCHC 33.8 RDW 17.8 H Plt Count 150 Carbonic Acid 2.75 H HCO3/H2CO3 Ratio 20:1 ABG pH 7.40 ABG pCO2 91.4 H* ABG pO2 47.6 L ABG HCO3 55.5 H ABG O2 Saturation 80.0 L ABG Base Excess 26.6 FiO2 4L Sodium 143.3 Potassium 3.4 L Chloride 84 L Carbon Dioxide 49 H* Anion Gap 10 BUN 75 H Creatinine 1.90 H Est GFR ( Amer) 42 L Est GFR (Non-Af Amer) 35 L Glucose 86 Calcium 9.0 Magnesium 2.1 05/02/18 06:19 WBC RBC Hgb Hct MCV MCH MCHC RDW Plt Count Carbonic Acid 1.69 H HCO3/H2CO3 Ratio 28:1 ABG pH 7.56 H ABG pCO2 56.0 H ABG pO2 108.5 H ABG HCO3 48.7 H ABG O2 Saturation 98.4 H ABG Base Excess 23.8 FiO2 28% Sodium Potassium Chloride Carbon Dioxide Anion Gap BUN Creatinine Est GFR ( Amer) Est GFR (Non-Af Amer) Glucose Calcium Magnesium 04/19/18 04/20/18 04/20/18 22:07 03:52 10:12 Troponin I 0.019 0.026 0.027 NT-Pro-B Natriuret Pep 3510 H Impressions: Chest X-Ray 04/28/18 00:00 IMPRESSION: Worsening pulmonary edema and/or superimposed pneumonia left lower lobe. Assessment & Plan - Diagnosis (1) Acute and chronic respiratory failure Qualifiers: Respiratory failure complication: hypoxia and hypercapnia Qualified Code(s) : J96.21 - Acute and chronic respiratory failure with hypoxia; J96.22 - Acute and chronic respiratory failure with hypercapnia; J96.22 - Acute and chronic respiratory failure with hypercapnia; J96.22 - Acute and chronic respiratory failure with hypercapnia Is this a current diagnosis for this admission?: Yes (2) Cellulitis of abdominal wall Is this a current diagnosis for this admission?: Yes (3) Acute on chronic combined systolic and diastolic CHF (congestive heart failure) Is this a current diagnosis for this admission?: Yes (4) Anemia Qualifiers: Anemia type: due to chronic kidney disease Chronic kidney disease stage: stage 3 (moderate) Qualified Code(s): N18.3 - Chronic kidney disease, stage 3 (moderate); D63.1 - Anemia in chronic kidney disease; D63.1 - Anemia in chronic kidney disease Is this a current diagnosis for this admission?: Yes (5) Atrial fibrillation Qualifiers: Atrial fibrillation type: paroxysmal Qualified Code(s): I48.0 - Paroxysmal atrial fibrillation Is this a current diagnosis for this admission?: Yes (6) Morbid obesity with BMI of 40.0-44.9, adult Is this a current diagnosis for this admission?: Yes (7) CKD (chronic kidney disease) stage 3, GFR 30-59 ml/min Is this a current diagnosis for this admission?: Yes - Plan Summary Plan Summary: Patient's output past 24 hours 2100, and improved 2300. Obviously, fluid restriction of being enforced. Educated patient and his nurse to this effect. -Fluid restriction 1.5 L/day -We will continue IV Lasix for now -Follow-up Chem-7 in a.m. Of note is that patient's ABG revealed decreasing PCO2 with increased rate of BiPAP to 16, and improved p.o. 2. Continue rate of 16, decrease FiO2 from 28% to 25%. Continue management otherwise. Possible discharge in the next couple of days. Creatinine stable, although increased BUN. Stable bicarb on BMP.
[2018-05-02] MEDS: ATORVASTATIN CALCIUM 40 MG TABLET PO SCH (21:21)
[2018-05-03 05:11] LABS: ABSOLUTE EOSINOPHILS # (AUTO) 0.2 10^3/uL (0.0-0.6); ABSOLUTE LYMPHOCYTES (AUTO) 1.2 10^3/uL (0.5-4.7); ABSOLUTE MONOCYTES (AUTO) 0.6 10^3/uL (0.1-1.4); ABSOLUTE NEUT (AUTO) 3.1 10^3/uL (1.7-8.2); BASOPHILS % (AUTO) 0.9 % (0-2); EOSINOPHILS % (AUTO) 2.9 % (0-6); HEMATOCRIT 25.7 % (37.9-51.0); HEMOGLOBIN 8.4 g/dL (13.5-17.0); LYMPHOCYTES % (AUTO) 24.2 % (13-45); MEAN CORPUSCULAR HEMOGLOBIN 26.6 pg (27.0-33.4); MEAN CORPUSCULAR HGB CONC 32.6 g/dL (32.0-36.0); MEAN CORPUSCULAR VOLUME 82 fl (80-97); MONOCYTES % (AUTO) 11.5 % (3-13); PLATELET COUNT 160 10^3/uL (150-450); RED BLOOD COUNT 3.15 10^6/uL (4.35-5.55); RED CELL DISTRIBUTION WIDTH 18.1 % (11.5-14.0); SEGMENTED NEUTROPHILS % (AUTO) 60.5 % (42-78); TOTAL CELLS COUNTED % (AUTO) 100 %; WHITE BLOOD COUNT 5.2 10^3/uL (4.0-10.5)
[2018-05-03] MEDS: MORPHINE SULFATE SR 15 MG TABLET PO SCH ×2 (05:24→17:43)
[2018-05-03 05:31] LABS: BLOOD UREA NITROGEN 82 mg/dL (7-20); CALCIUM 9.2 mg/dL (8.4-10.2); CHLORIDE 82 mmol/L (98-107); GLUCOSE 86 mg/dL (75-110); POTASSIUM 3.7 mmol/L (3.6-5.0); SODIUM 144.9 mmol/L (137-145)
[2018-05-03 05:40] LABS: ANION GAP 15 (5-19)
[2018-05-03 05:42] LABS: CARBON DIOXIDE 48 mmol/L (22-30)
[2018-05-03] MEDS: ALBUTEROL SULFATE 0.083% NEB 2.5 MG/3 ML AMPUL NEB PRN ×2 (07:22→19:40)
[2018-05-03] MEDS: BUDESONIDE NEB 0.5 MG/2 ML AMPUL NEB SCH ×2 (07:22→19:40)
[2018-05-03] MEDS: MORPHINE SULFATE 10 MG/5 ML ORAL SOLUTION UDCUP PO PRN ×2 (09:41→21:08)
[2018-05-03] MEDS: DOCUSATE SODIUM 100 MG CAPSULE PO SCH ×2 (09:42→17:44)
[2018-05-03] MEDS: ASPIRIN 81 MG TABLET, CHEWABLE PO SCH (09:42)
[2018-05-03] MEDS: APIXABAN 5 MG TABLET PO SCH ×2 (09:42→17:44)
[2018-05-03] MEDS: POTASSIUM CHLORIDE 10 MEQ CAPSULE.ER PO SCH ×3 (09:42→17:45)
[2018-05-03] MEDS: DOXYCYCLINE HYCLATE 100 MG TABLET PO SCH ×2 (09:42→17:47)
[2018-05-03] MEDS: FLUTICASONE/SALMETEROL DISKUS 250-50 MCG/DOSE IH SCH ×2 (09:42→21:09)
[2018-05-03] MEDS: SERTRALINE HCL 50 MG TABLET PO SCH (09:42)
[2018-05-03] MEDS: TIOTROPIUM BROMIDE DPI 5 CAP/KIT (18 MCG/CAP) IH SCH (09:43)
[2018-05-03] MEDS: NORMAL SALINE 250 ML with FUROSEMIDE 250 MG IV PRN ×2 (12:39)
--- NOTE | 2018-05-03 13:40 | PDOC PROGRESS REPORT ---
Subjective Progress Note for:: 05/03/18 Subjective:: 72-year-old male with recurrent hospitalization, with acute on chronic respiratory failure/CHF exacerbation. Patient had persistent edema refractory to diuresis and required Lasix drip. Currently on IV Lasix at 20 mg/h. Continues to feel edema has been steadily improving, also with decreasing testicular swelling. He did better with fluid restriction yesterday and had a net output of 2 L. Denies significant shortness of breath, no orthopnea or PND , no fever or chills. Son at bedside. Reason For Visit: ACUTE ON CHRONIC RESP FAILURE, CAD, CELLULITIS Physical Exam Vital Signs: Temp Pulse Resp BP Pulse Ox 98.2 F 59 L 24 H 89/44 L 99 05/03/18 11:36 05/03/18 11:36 05/03/18 11:36 05/03/18 11:36 05/03/18 11:36 Pulse Oximeter Continuous Start: 04/27/18 14: 06 Freq: RTQ4 Status: Active Document 05/03/18 07:22 [facility] (Rec: 05/03/18 07:45 [facility] [id number]) Pulse Oximetry Assessment Oxygen Saturation (92-100) 92 Oxygen Delivery Method AVAP Fraction of Inspired Oxygen (FIO2) 25 Equipment Usage Equipment in Use Continuous SpO2 Machine # N-5 Intake & Output 05/02/18 05/03/18 05/04/18 06:59 06:59 06:59 Intake Total 2359 1313 368 Output Total 0683 3575 800 Balance 270 -4180 -068 Weight 130 kg 130.6 kg General appearance: PRESENT: cooperative, no acute distress, morbidly obese Head exam: PRESENT: atraumatic, normocephalic Respiratory exam: PRESENT: decreased breath sounds at bases, symmetrical. ABSENT: wheezes Cardiovascular exam: PRESENT: RRR, +S1, +S2, systolic murmur - 1/6 GI/Abdominal exam: PRESENT: Soft, normal bowel sounds. ABSENT: ascites, tenderness Extremities exam: PRESENT: +2 edema Neurological exam: PRESENT: awake - Awake, oriented to person, oriented to place , oriented to situation Psychiatric exam: PRESENT: appropriate affect, normal mood Skin exam: PRESENT: other - ulcer anterior left leg looks clean. Results Laboratory Results: 05/03/18 04:07 05/03/18 04:07 05/03/18 05/03/18 04:07 04:07 WBC 5.2 RBC 3.15 L Hgb 8.4 L Hct 25.7 L MCV 82 MCH 26.6 L MCHC 32.6 RDW 18.1 H Plt Count 160 Seg Neutrophils % 60.5 Lymphocytes % 24.2 Monocytes % 11.5 Eosinophils % 2.9 Basophils % 0.9 Absolute Neutrophils 3.1 Absolute Lymphocytes 1.2 Absolute Monocytes 0.6 Absolute Eosinophils 0.2 Absolute Basophils 0.0 Sodium 144.9 Potassium 3.7 Chloride 82 L Carbon Dioxide 48 H* Anion Gap 15 BUN 82 H Creatinine 1.84 H Est GFR ( Amer) 44 L Est GFR (Non-Af Amer) 36 L Glucose 86 Calcium 9.2 04/19/18 04/20/18 04/20/18 22:07 03:52 10:12 Troponin I 0.019 0.026 0.027 NT-Pro-B Natriuret Pep 3510 H Impressions: Chest X-Ray 04/28/18 00:00 IMPRESSION: Worsening pulmonary edema and/or superimposed pneumonia left lower lobe. Assessment & Plan - Diagnosis (1) Acute and chronic respiratory failure Qualifiers: Respiratory failure complication: hypoxia and hypercapnia Qualified Code(s) : J96.21 - Acute and chronic respiratory failure with hypoxia; J96.22 - Acute and chronic respiratory failure with hypercapnia; J96.22 - Acute and chronic respiratory failure with hypercapnia; J96.22 - Acute and chronic respiratory failure with hypercapnia Is this a current diagnosis for this admission?: Yes (2) Cellulitis of abdominal wall Is this a current diagnosis for this admission?: Yes (3) Acute on chronic combined systolic and diastolic CHF (congestive heart failure) Is this a current diagnosis for this admission?: Yes (4) Anemia Qualifiers: Anemia type: due to chronic kidney disease Chronic kidney disease stage: stage 3 (moderate) Qualified Code(s): N18.3 - Chronic kidney disease, stage 3 (moderate); D63.1 - Anemia in chronic kidney disease; D63.1 - Anemia in chronic kidney disease Is this a current diagnosis for this admission?: Yes (5) Atrial fibrillation Qualifiers: Atrial fibrillation type: paroxysmal Qualified Code(s): I48.0 - Paroxysmal atrial fibrillation Is this a current diagnosis for this admission?: Yes (6) Morbid obesity with BMI of 40.0-44.9, adult Is this a current diagnosis for this admission?: Yes (7) CKD (chronic kidney disease) stage 3, GFR 30-59 ml/min Is this a current diagnosis for this admission?: Yes - Plan Summary Plan Summary: Patient's net output past 24 hours improved, unlike yesterday when he was 19. Encouraged to continue fluid restriction. His BUN continues to worsen. I think patient has gotten of IV Lasix. Will transition to oral Lasix 60 mg twice daily and see how he does overnight -Follow-up Chem-7 in a.m. Continue management otherwise. Possible discharge in the next day or 2 if he is stable.
[2018-05-03] MEDS: FUROSEMIDE 40 MG TABLET PO SCH (17:44)
[2018-05-03] MEDS: ATORVASTATIN CALCIUM 40 MG TABLET PO SCH (21:08)
[2018-05-04] MEDS: MORPHINE SULFATE SR 15 MG TABLET PO SCH ×2 (05:11→18:00)
[2018-05-04 05:21] LABS: ABSOLUTE BASOPHILS # (AUTO) 0.1 10^3/uL (0.0-0.2); ABSOLUTE EOSINOPHILS # (AUTO) 0.1 10^3/uL (0.0-0.6); ABSOLUTE LYMPHOCYTES (AUTO) 1.2 10^3/uL (0.5-4.7); ABSOLUTE MONOCYTES (AUTO) 0.6 10^3/uL (0.1-1.4); EOSINOPHILS % (AUTO) 2.9 % (0-6); HEMATOCRIT 23.8 % (37.9-51.0); LYMPHOCYTES % (AUTO) 23.3 % (13-45); MEAN CORPUSCULAR HEMOGLOBIN 27.3 pg (27.0-33.4); MEAN CORPUSCULAR HGB CONC 33.5 g/dL (32.0-36.0); MEAN CORPUSCULAR VOLUME 82 fl (80-97); MONOCYTES % (AUTO) 11.4 % (3-13); PLATELET COUNT 140 10^3/uL (150-450); RED BLOOD COUNT 2.92 10^6/uL (4.35-5.55); RED CELL DISTRIBUTION WIDTH 18.6 % (11.5-14.0); SEGMENTED NEUTROPHILS % (AUTO) 61.4 % (42-78); TOTAL CELLS COUNTED % (AUTO) 100 %
[2018-05-04 05:45] LABS: BLOOD UREA NITROGEN 87 mg/dL (7-20); CALCIUM 8.7 mg/dL (8.4-10.2); CHLORIDE 82 mmol/L (98-107); GLUCOSE 103 mg/dL (75-110); POTASSIUM 3.9 mmol/L (3.6-5.0); SODIUM 142.4 mmol/L (137-145)
[2018-05-04 05:57] LABS: ANION GAP 10 (5-19)
[2018-05-04 05:58] LABS: CARBON DIOXIDE 50 mmol/L (22-30)
[2018-05-04] MEDS: ALBUTEROL SULFATE 0.083% NEB 2.5 MG/3 ML AMPUL NEB PRN (08:06)
[2018-05-04] MEDS: BUDESONIDE NEB 0.5 MG/2 ML AMPUL NEB SCH ×2 (08:06→20:02)
[2018-05-04] MEDS: TIOTROPIUM BROMIDE DPI 5 CAP/KIT (18 MCG/CAP) IH SCH (10:31)
[2018-05-04] MEDS: FUROSEMIDE 40 MG TABLET PO SCH ×2 (10:31→18:00)
[2018-05-04] MEDS: FLUTICASONE/SALMETEROL DISKUS 250-50 MCG/DOSE IH SCH ×2 (10:32→22:25)
[2018-05-04] MEDS: POTASSIUM CHLORIDE 10 MEQ CAPSULE.ER PO SCH ×3 (10:32→18:00)
[2018-05-04] MEDS: APIXABAN 5 MG TABLET PO SCH ×2 (10:32→18:00)
[2018-05-04] MEDS: SERTRALINE HCL 50 MG TABLET PO SCH (10:32)
[2018-05-04] MEDS: DOCUSATE SODIUM 100 MG CAPSULE PO SCH ×2 (10:33→18:07)
[2018-05-04] MEDS: ASPIRIN 81 MG TABLET, CHEWABLE PO SCH (10:33)
[2018-05-04] MEDS: DOXYCYCLINE HYCLATE 100 MG TABLET PO SCH ×2 (10:33→18:01)
[2018-05-04] MEDS: MORPHINE SULFATE 10 MG/5 ML ORAL SOLUTION UDCUP PO PRN ×2 (10:40→22:25)
--- NOTE | 2018-05-04 13:05 | PDOC PROGRESS REPORT ---
Subjective Progress Note for:: 05/04/18 Subjective:: 72-year-old male with recurrent hospitalization, with acute on chronic respiratory failure/CHF exacerbation. Patient had persistent edema refractory to diuresis and required Lasix drip. Was on IV Lasix at 20 mg/h, but discontinued yesterday, 05/03/18. Today patient more lethargic. Apparently cannot be very compliant with his BiPAP. Labs reveal an increasing CO2 of 50. Patient still feels feels edema improving, also with decreased testicular swelling. Net output yesterday of only 176 mL. Denies significant shortness of breath, no orthopnea or PND, no fever or chills. Son at bedside. Reason For Visit: ACUTE ON CHRONIC RESP FAILURE, CAD, CELLULITIS Physical Exam Vital Signs: Temp Pulse Resp BP Pulse Ox 97.7 F 59 L 28 H 103/53 L 97 05/04/18 12:09 05/04/18 12:09 05/04/18 12:09 05/04/18 12:09 05/04/18 12:09 Pulse Oximeter Continuous Start: 04/27/18 14: 06 Freq: RTQ4 Status: Active Document 05/04/18 08:06 [facility] (Rec: 05/04/18 08:46 [facility] [email or web address]) Pulse Oximetry Assessment Oxygen Saturation (92-100) 98 Oxygen Delivery Method AVAP Fraction of Inspired Oxygen (FIO2) 25 Equipment Usage Equipment in Use Continuous SpO2 Machine # n-5 Intake & Output 05/03/18 05/04/18 05/05/18 06:59 06:59 06:59 Intake Total 1313 1474 340 Output Total 3000 9530 600 Balance -2262 -176 -260 Weight 130.6 kg 130.1 kg General appearance: PRESENT: cooperative, no acute distress, morbidly obese Head exam: PRESENT: atraumatic, normocephalic Respiratory exam: PRESENT: decreased breath sounds at bases, symmetrical. ABSENT: wheezes Cardiovascular exam: PRESENT: RRR, +S1, +S2, systolic murmur - 1/6 GI/Abdominal exam: PRESENT: Soft, normal bowel sounds. ABSENT: ascites, tenderness Extremities exam: PRESENT: +2 edema Neurological exam: PRESENT: awake - Awake, oriented to person, oriented to place , oriented to situation Psychiatric exam: PRESENT: appropriate affect, normal mood Skin exam: PRESENT: other - ulcer anterior left leg looks good. Results Laboratory Results: 05/04/18 04:30 05/04/18 04:30 05/04/18 05/04/18 04:30 04:30 WBC 5.0 RBC 2.92 L Hgb 8.0 L Hct 23.8 L MCV 82 MCH 27.3 MCHC 33.5 RDW 18.6 H Plt Count 140 L Seg Neutrophils % 61.4 Lymphocytes % 23.3 Monocytes % 11.4 Eosinophils % 2.9 Basophils % 1.0 Absolute Neutrophils 3.0 Absolute Lymphocytes 1.2 Absolute Monocytes 0.6 Absolute Eosinophils 0.1 Absolute Basophils 0.1 Sodium 142.4 Potassium 3.9 Chloride 82 L Carbon Dioxide 50 H* Anion Gap 10 BUN 87 H Creatinine 2.06 H Est GFR ( Amer) 38 L Est GFR (Non-Af Amer) 32 L Glucose 103 Calcium 8.7 04/19/18 04/20/18 04/20/18 22:07 03:52 10:12 Troponin I 0.019 0.026 0.027 NT-Pro-B Natriuret Pep 3510 H Impressions: Chest X-Ray 04/28/18 00:00 IMPRESSION: Worsening pulmonary edema and/or superimposed pneumonia left lower lobe. Assessment & Plan - Diagnosis (1) Acute and chronic respiratory failure Qualifiers: Respiratory failure complication: hypoxia and hypercapnia Qualified Code(s) : J96.21 - Acute and chronic respiratory failure with hypoxia; J96.22 - Acute and chronic respiratory failure with hypercapnia; J96.22 - Acute and chronic respiratory failure with hypercapnia; J96.22 - Acute and chronic respiratory failure with hypercapnia Is this a current diagnosis for this admission?: Yes (2) Cellulitis of abdominal wall Is this a current diagnosis for this admission?: Yes (3) Acute on chronic combined systolic and diastolic CHF (congestive heart failure) Is this a current diagnosis for this admission?: Yes (4) Anemia Qualifiers: Anemia type: due to chronic kidney disease Chronic kidney disease stage: stage 3 (moderate) Qualified Code(s): N18.3 - Chronic kidney disease, stage 3 (moderate); D63.1 - Anemia in chronic kidney disease; D63.1 - Anemia in chronic kidney disease Is this a current diagnosis for this admission?: Yes (5) Atrial fibrillation Qualifiers: Atrial fibrillation type: paroxysmal Qualified Code(s): I48.0 - Paroxysmal atrial fibrillation Is this a current diagnosis for this admission?: Yes (6) Morbid obesity with BMI of 40.0-44.9, adult Is this a current diagnosis for this admission?: Yes (7) CKD (chronic kidney disease) stage 3, GFR 30-59 ml/min Is this a current diagnosis for this admission?: Yes - Plan Summary Plan Summary: Patient's net output past 24 hours decreased only 176 mL. Encouraged to continue fluid restriction. His BUN continues to worsen, as well as CO2. Encourage BiPAP use. Will also add acetazolamide to Lasix for a couple of days. Will continue oral Lasix at 60 mg twice daily and continue to monitor -Follow-up Chem-7 in a.m. Continue management otherwise.
[2018-05-04] MEDS: ACETAZOLAMIDE 250 MG TABLET PO SCH ×2 (14:14→22:25)
[2018-05-04] MEDS: ATORVASTATIN CALCIUM 40 MG TABLET PO SCH (22:25)
[2018-05-05 04:52] LABS: ABSOLUTE BASOPHILS # (AUTO) 0.1 10^3/uL (0.0-0.2); ABSOLUTE EOSINOPHILS # (AUTO) 0.2 10^3/uL (0.0-0.6); ABSOLUTE LYMPHOCYTES (AUTO) 1.1 10^3/uL (0.5-4.7); ABSOLUTE MONOCYTES (AUTO) 0.5 10^3/uL (0.1-1.4); ABSOLUTE NEUT (AUTO) 2.5 10^3/uL (1.7-8.2); BASOPHILS % (AUTO) 1.3 % (0-2); EOSINOPHILS % (AUTO) 4.6 % (0-6); HEMATOCRIT 23.2 % (37.9-51.0); LYMPHOCYTES % (AUTO) 24.4 % (13-45); MEAN CORPUSCULAR HEMOGLOBIN 27.1 pg (27.0-33.4); MEAN CORPUSCULAR HGB CONC 33.4 g/dL (32.0-36.0); MEAN CORPUSCULAR VOLUME 81 fl (80-97); MONOCYTES % (AUTO) 12.2 % (3-13); PLATELET COUNT 134 10^3/uL (150-450); RED BLOOD COUNT 2.86 10^6/uL (4.35-5.55); RED CELL DISTRIBUTION WIDTH 18.4 % (11.5-14.0); SEGMENTED NEUTROPHILS % (AUTO) 57.5 % (42-78); TOTAL CELLS COUNTED % (AUTO) 100 %; WHITE BLOOD COUNT 4.4 10^3/uL (4.0-10.5)
[2018-05-05 05:01] LABS: HEMOGLOBIN 7.7 g/dL (13.5-17.0)
[2018-05-05 05:07] LABS: BLOOD UREA NITROGEN 82 mg/dL (7-20); CALCIUM 8.8 mg/dL (8.4-10.2); CHLORIDE 83 mmol/L (98-107); GLUCOSE 84 mg/dL (75-110); POTASSIUM 3.7 mmol/L (3.6-5.0); SODIUM 143.5 mmol/L (137-145)
[2018-05-05 05:20] LABS: ANION GAP 9 (5-19); CARBON DIOXIDE 52 mmol/L (22-30)
[2018-05-05] MEDS: MORPHINE SULFATE SR 15 MG TABLET PO SCH ×2 (06:18→17:21)
[2018-05-05] MEDS: ACETAZOLAMIDE 250 MG TABLET PO SCH ×3 (06:19→21:57)
[2018-05-05] MEDS: BUDESONIDE NEB 0.5 MG/2 ML AMPUL NEB SCH ×2 (07:56→20:11)
[2018-05-05] MEDS: ALBUTEROL SULFATE 0.083% NEB 2.5 MG/3 ML AMPUL NEB PRN (07:56)
[2018-05-05] MEDS: FUROSEMIDE 40 MG TABLET PO SCH ×2 (10:00→17:21)
[2018-05-05] MEDS: SERTRALINE HCL 50 MG TABLET PO SCH (10:01)
[2018-05-05] MEDS: ASPIRIN 81 MG TABLET, CHEWABLE PO SCH (10:01)
[2018-05-05] MEDS: POTASSIUM CHLORIDE 10 MEQ CAPSULE.ER PO SCH ×3 (10:01→17:21)
[2018-05-05] MEDS: FLUTICASONE/SALMETEROL DISKUS 250-50 MCG/DOSE IH SCH ×2 (10:02→21:57)
[2018-05-05] MEDS: APIXABAN 5 MG TABLET PO SCH ×2 (10:02→17:21)
[2018-05-05] MEDS: DOCUSATE SODIUM 100 MG CAPSULE PO SCH ×2 (10:02→17:21)
[2018-05-05] MEDS: DOXYCYCLINE HYCLATE 100 MG TABLET PO SCH ×2 (10:02→17:21)
[2018-05-05] MEDS: TIOTROPIUM BROMIDE DPI 5 CAP/KIT (18 MCG/CAP) IH SCH (10:02)
--- NOTE | 2018-05-05 18:04 | PDOC PROGRESS REPORT ---
Subjective Progress Note for:: 05/05/18 Subjective:: 72-year-old male with recurrent hospitalization, with acute on chronic respiratory failure/CHF exacerbation. Patient had persistent edema refractory to diuresis and required Lasix drip. Was on IV Lasix at 20 mg/h, but discontinued 05/03/18. Today patient more awake. States he was more compliant with his BiPAP overnight. Labs reveals an increasing bicarb of 52 on Chem-7. Patient still with edema. Denies significant shortness of breath, no orthopnea or PND, no fever or chills. Son at bedside. Reason For Visit: ACUTE ON CHRONIC RESP FAILURE, CAD, CELLULITIS Physical Exam Vital Signs: Temp Pulse Resp BP Pulse Ox 97.6 F 59 L 13 103/51 L 100 05/05/18 15:15 05/05/18 15:15 05/05/18 15:15 05/05/18 15:15 05/05/18 15:15 Pulse Oximeter Continuous Start: 04/27/18 14: 06 Freq: RTQ4 Status: Active Document 05/05/18 15:15 [facility] (Rec: 05/05/18 15:17 [facility] [email or web address]) Pulse Oximetry Assessment Oxygen Saturation (92-100) 98 Oxygen Delivery Method AVAP Fraction of Inspired Oxygen (FIO2) 30 Equipment Usage Equipment in Use Continuous SpO2 Machine # n-5 Intake & Output 05/04/18 05/05/18 05/06/18 06:59 06:59 06:59 Intake Total 1474 899 399 Output Total 1650 1975 325 Balance -176 -1076 74 Weight 130.1 kg 125.9 kg General appearance: PRESENT: cooperative, no acute distress, morbidly obese Head exam: PRESENT: atraumatic, normocephalic Respiratory exam: PRESENT: decreased breath sounds at bases, symmetrical. ABSENT: wheezes Cardiovascular exam: PRESENT: RRR, +S1, +S2, systolic murmur - 1/6 GI/Abdominal exam: PRESENT: Soft, normal bowel sounds. ABSENT: ascites, tenderness Extremities exam: PRESENT: +2 edema Neurological exam: PRESENT: awake - Awake, oriented to person, oriented to place , oriented to situation Psychiatric exam: PRESENT: appropriate affect, normal mood Skin exam: PRESENT: other - ulcer anterior left leg looks good. Results Laboratory Results: 05/05/18 04:12 05/05/18 04:12 05/05/18 05/05/18 04:12 04:12 WBC 4.4 RBC 2.86 L Hgb 7.7 L Hct 23.2 L MCV 81 MCH 27.1 MCHC 33.4 RDW 18.4 H Plt Count 134 L Seg Neutrophils % 57.5 Lymphocytes % 24.4 Monocytes % 12.2 Eosinophils % 4.6 Basophils % 1.3 Absolute Neutrophils 2.5 Absolute Lymphocytes 1.1 Absolute Monocytes 0.5 Absolute Eosinophils 0.2 Absolute Basophils 0.1 Sodium 143.5 Potassium 3.7 Chloride 83 L Carbon Dioxide 52 H* Anion Gap 9 BUN 82 H Creatinine 2.36 H Est GFR ( Amer) 33 L Est GFR (Non-Af Amer) 27 L Glucose 84 Calcium 8.8 04/19/18 04/20/18 04/20/18 22:07 03:52 10:12 Troponin I 0.019 0.026 0.027 NT-Pro-B Natriuret Pep 3510 H Impressions: Chest X-Ray 04/28/18 00:00 IMPRESSION: Worsening pulmonary edema and/or superimposed pneumonia left lower lobe. Assessment & Plan - Diagnosis (1) Acute and chronic respiratory failure Qualifiers: Respiratory failure complication: hypoxia and hypercapnia Qualified Code(s) : J96.21 - Acute and chronic respiratory failure with hypoxia; J96.22 - Acute and chronic respiratory failure with hypercapnia; J96.22 - Acute and chronic respiratory failure with hypercapnia; J96.22 - Acute and chronic respiratory failure with hypercapnia Is this a current diagnosis for this admission?: Yes (2) Cellulitis of abdominal wall Is this a current diagnosis for this admission?: Yes (3) Acute on chronic combined systolic and diastolic CHF (congestive heart failure) Is this a current diagnosis for this admission?: Yes (4) Anemia Qualifiers: Anemia type: due to chronic kidney disease Chronic kidney disease stage: stage 3 (moderate) Qualified Code(s): N18.3 - Chronic kidney disease, stage 3 (moderate); D63.1 - Anemia in chronic kidney disease; D63.1 - Anemia in chronic kidney disease Is this a current diagnosis for this admission?: Yes (5) Atrial fibrillation Qualifiers: Atrial fibrillation type: paroxysmal Qualified Code(s): I48.0 - Paroxysmal atrial fibrillation Is this a current diagnosis for this admission?: Yes (6) Morbid obesity with BMI of 40.0-44.9, adult Is this a current diagnosis for this admission?: Yes (7) CKD (chronic kidney disease) stage 3, GFR 30-59 ml/min Is this a current diagnosis for this admission?: Yes - Plan Summary Plan Summary: Patient has worsening his BUN continues to worsening contraction alkalosis, with BUN 83 and CO2 52. Will decrease Lasix to 60 mg p.o. daily. Also started acetazolamide 50 mg every 8 yesterday, 05/04/18. Complete 5-day course. Encouraged continue BiPAP use. -Follow-up Chem-7, ABG, CBC in a.m. Continue management otherwise. Complete doxycycline course. Patient and son wishes for patient to be full code. The severity of his condition was discussed with them in detail and they verbalized understanding. Will obtain cardiology consultation.
[2018-05-05] MEDS: ATORVASTATIN CALCIUM 40 MG TABLET PO SCH (21:57)
[2018-05-06] MEDS: MORPHINE SULFATE SR 15 MG TABLET PO SCH ×2 (06:00→18:51)
[2018-05-06] MEDS: ACETAZOLAMIDE 250 MG TABLET PO SCH ×3 (06:01→21:24)
[2018-05-06 06:44] LABS: ARTERIAL BLOOD BASE EXCESS 15.5 mmol/L; ARTERIAL BLOOD H2CO3 1.69 mmol/L (1.05-1.35); ARTERIAL BLOOD HCO3 40.9 mmol/L (20-24); ARTERIAL BLOOD O2 SATURATION 92.6 % (94-98); ARTERIAL BLOOD PCO2 56.1 mmHg (35-45); ARTERIAL BLOOD PH 7.48 (7.35-7.45); ARTERIAL BLOOD PO2 61.6 mmHg (80-100)
[2018-05-06 06:45] LABS: ARTERIAL BLOOD FIO2 25%; ARTERIAL BLOOD TOTAL CO2 42.7 mmol/L (23-27)
[2018-05-06] MEDS: DOXYCYCLINE HYCLATE 100 MG TABLET PO SCH ×2 (08:07→18:54)
[2018-05-06] MEDS: POTASSIUM CHLORIDE 10 MEQ CAPSULE.ER PO SCH ×3 (08:07→18:50)
[2018-05-06] MEDS: BUDESONIDE NEB 0.5 MG/2 ML AMPUL NEB SCH ×2 (08:31→20:16)
[2018-05-06] MEDS: ALBUTEROL SULFATE 0.083% NEB 2.5 MG/3 ML AMPUL NEB PRN ×2 (08:31→20:16)
[2018-05-06 09:31] LABS: ABSOLUTE EOSINOPHILS # (AUTO) 0.2 10^3/uL (0.0-0.6); ABSOLUTE LYMPHOCYTES (AUTO) 1.3 10^3/uL (0.5-4.7); ABSOLUTE MONOCYTES (AUTO) 0.5 10^3/uL (0.1-1.4); ABSOLUTE NEUT (AUTO) 3.5 10^3/uL (1.7-8.2); BASOPHILS % (AUTO) 0.9 % (0-2); EOSINOPHILS % (AUTO) 3.2 % (0-6); HEMATOCRIT 24.8 % (37.9-51.0); LYMPHOCYTES % (AUTO) 23.3 % (13-45); MEAN CORPUSCULAR HEMOGLOBIN 25.8 pg (27.0-33.4); MEAN CORPUSCULAR HGB CONC 31.1 g/dL (32.0-36.0); MEAN CORPUSCULAR VOLUME 83 fl (80-97); MONOCYTES % (AUTO) 8.8 % (3-13); PLATELET COUNT 151 10^3/uL (150-450); RED BLOOD COUNT 2.99 10^6/uL (4.35-5.55); RED CELL DISTRIBUTION WIDTH 18.5 % (11.5-14.0); SEGMENTED NEUTROPHILS % (AUTO) 63.8 % (42-78); TOTAL CELLS COUNTED % (AUTO) 100 %; WHITE BLOOD COUNT 5.5 10^3/uL (4.0-10.5)
[2018-05-06 09:33] LABS: HEMOGLOBIN 7.7 g/dL (13.5-17.0)
[2018-05-06 09:59] LABS: BLOOD UREA NITROGEN 83 mg/dL (7-20); CALCIUM 9.1 mg/dL (8.4-10.2); CHLORIDE 86 mmol/L (98-107); GLUCOSE 109 mg/dL (75-110); POTASSIUM 4.1 mmol/L (3.6-5.0); SODIUM 144.2 mmol/L (137-145)
[2018-05-06] MEDS: APIXABAN 5 MG TABLET PO SCH ×2 (10:18→18:51)
[2018-05-06] MEDS: ASPIRIN 81 MG TABLET, CHEWABLE PO SCH (10:19)
[2018-05-06] MEDS: FLUTICASONE/SALMETEROL DISKUS 250-50 MCG/DOSE IH SCH ×2 (10:19→21:25)
[2018-05-06] MEDS: SERTRALINE HCL 50 MG TABLET PO SCH (10:19)
[2018-05-06] MEDS: DOCUSATE SODIUM 100 MG CAPSULE PO SCH ×2 (10:19→18:51)
[2018-05-06] MEDS: TIOTROPIUM BROMIDE DPI 5 CAP/KIT (18 MCG/CAP) IH SCH (10:20)
[2018-05-06] MEDS: FUROSEMIDE 40 MG TABLET PO SCH (10:21)
[2018-05-06] MEDS: MORPHINE SULFATE 10 MG/5 ML ORAL SOLUTION UDCUP PO PRN ×2 (10:28→23:27)
[2018-05-06 10:32] LABS: ANION GAP 14 (5-19)
[2018-05-06 10:34] LABS: CARBON DIOXIDE 44 mmol/L (22-30)
[2018-05-06] MEDS ORDERED: FUROSEMIDE INJ/PF 20 MG/2 ML SDV IV PRN (11:45)
--- NOTE | 2018-05-06 12:07 | PDOC CONSULTATION ---
Consultation Consult Date: 05/05/18 Attending physician:: ARY LINTON History of Present Illness Admission Date/PCP: 04/19/18 18:23 MAURICE ORTIZ DO Patient complains of: Shortness of breath History of Present Illness: DANIEL OLIVA is a 72 year old male with a complex medical history. See details below. Over the last week or 2 the patient has been noticing increasing shortness of breath. He has realized significant weight gain as well as fluid retention. With the worsening shortness of breath and poor oxygenation the patient in fact called EMS. He is found to be mildly hypoxic ( although with his chronic COPD this is possibly his baseline) as well as short of breath with marked edema. Patient was admitted with progressive pedal edema , increasing shortness of breath as well as respiratory failure. Patient is well-known to me from previous admission. I was asked to evaluate patient to help with CHF management. Patient also has significant obstructive sleep apnea , obesity hypoventilation syndrome as well as respiratory failure. Patient also has a history of defibrillator placement which seems to be functioning normally based on rhythm strip review. Past Medical History Cardiac Medical History: Reports: Atrial Fibrillation, Congestive Heart Failure , Coronary Artery Disease, Myocardial Infarction, Hyperlipidema, Hypertension, Pulmonary Embolism, Heart Murmur Pulmonary Medical History: Reports: Chronic Obstructive Pulmonary Disease (COPD) EENT Medical History: Reports: None Neurological Medical History: Reports: None Denies: Seizures Endocrine Medical History: Reports: Other - There are inconsistencies as to whether the patient in fact has diabetes me Denies: Diabetes Mellitus Type 2 - History of same, but only on medication for short time. Renal/ Medical History: Denies: End Stage Renal Disease Malignancy Medical History: Reports: None GI Medical History: Denies: Crohn's Disease, Hepatitis, Ulcerative Colitis Musculoskeltal Medical History: Reports: Arthritis Skin Medical History: Reports: Other - Stasis dermatitis with weeping ulcers Denies: Psoriasis Psychiatric Medical History: Reports: Depression Traumatic Medical History: Reports: None Denies: Traumatic Brain Injury Hematology: Reports: Anemia Denies: Hemophilia, Sickle Cell Disease Past Surgical History Past Surgical History: Reports: Cardiac Catheterization, Coronary Artery Bypass Graft, Coronary Stent, Internal Defibrillator, Pacemaker - Battery change out and then explantation., Tonsillectomy Social History Information Source: Patient Smoking Status: Never Smoker Last Time Smoked: 2005 Frequency of Alcohol Use: Rare Hx Recreational Drug Use: No Drugs: None Hx Prescription Drug Abuse: No - Advance Directive Resuscitation Status: Do Not Resuscitate - Per discussion with the patient Surrogate healthcare decision maker:: Patient's son is the surrogate decision-maker Family History Family History: CAD, COPD, Hypertension Parental Family History Reviewed: Yes Children Family History Reviewed: Yes Sibling(s) Family History Reviewed.: Yes Medication/Allergy Home Medications: Amiodarone HCl [Cordarone 200 mg Tablet] 200 mg PO DAILY 02/17/18 Apixaban [Eliquis] 5 mg PO Q12 02/17/18 Atorvastatin Calcium [Lipitor 40 mg Tablet] 40 mg PO DAILY 02/17/18 Gabapentin [Neurontin 100 mg Capsule] 100 mg PO Q12HP PRN 02/17/18 Oxycodone HCl/Acetaminophen [Endocet 10-325 mg Tablet] 1 tab PO Q6HP PRN Sertraline HCl [Zoloft 50 mg Tablet] 50 mg PO DAILY 02/17/18 Fluticasone/Salmeterol [Advair 250-50 Diskus 28 dose] 1 inh IH Q12H 03/06/18 Furosemide [Lasix 20 mg Tablet] 20 mg PO QAM 03/06/18 Multivitamin [Multivitamins] 1 each PO DAILY 03/06/18 Torsemide [Demadex 20 mg Tablet] 20 mg PO DAILY 03/06/18 Umeclidinium Brm/Vilanterol Tr [Anoro Ellipta 62.5-25 Mcg INH] 1 each IH DAILY 03/06/18 Allergies/Adverse Reactions: No Known Allergies Allergy (Verified 02/17/18 14:22) Review of Systems Review of Systems: Please see history of present illness and past medical history as wall. Constitutional: No fever or chills reported. Head : No recent chronic headaches, recent head injury. Eyes: No recent eye pain, diplopia, redness, discharge, acute visual changes. Ears: No recent chronic ear pain, acute hearing loss, ear discharge. Oral cavity: No recent ulcerations, bleeding, oral cavity discomfort. Neck: No recent acute neck pain reported. Hematologic: No recent easy bruising or bleeding. Lymphatic: No recent lymph node enlargement reported. Cardiovascular system review: See history of present illness. Respiratory system review: Patient has chronic cough, chronic wheezing and chronic shortness of breath on exertion Gastrointestinal system review: Negative for any recent acute hematemesis, melena. History of acid reflux reported. Genitourinary system review: No recent acute or chronic hematuria, flank pain, UTI etc. reported. Skin system review: Negative for any recent abnormal bruising, no rash, no pruritus reported. Neurologic: No prior history of strokes, mini strokes, seizure disorder. Psychologic: No history of major psychosis or major depression reported. Musculoskeletal: Minor aches and pains reported. No acute joint swelling reported. Endocrine: No recent polyuria, polydipsia, recent heat or cold intolerance. Physical Exam Vital Signs: Temp Pulse Resp BP Pulse Ox 97.6 F 59 L 13 103/51 L 100 05/05/18 15:15 05/05/18 15:15 05/05/18 15:15 05/05/18 15:15 05/05/18 15:15 Pulse Oximeter Continuous Start: 04/27/18 14: 06 Freq: RTQ4 Status: Active Document 05/05/18 15:15 LDA (Rec: 05/05/18 15:17 LDA [id number]) Pulse Oximetry Assessment Oxygen Saturation (92-100) 98 Oxygen Delivery Method AVAP Fraction of Inspired Oxygen (FIO2) 30 Equipment Usage Equipment in Use Continuous SpO2 Machine # [id number] Intake & Output 05/04/18 05/05/18 05/06/18 06:59 06:59 06:59 Intake Total 1474 899 621 Output Total 1650 3696 625 Balance -176 -1076 -4 Weight 130.1 kg 125.9 kg Exam: GENERAL: well-nourished and in no acute distress. Alert and oriented x3 HEAD: Atraumatic, normocephalic. EYES: AMEENA, sclera anicteric, conjunctiva are normal. ENT: Moist mucous membranes. No oral ulcerations or bleeding gums noted. No obvious ear, nose or throat abnormalities noted. NECK: supple without lymphadenopathy. Trachea is central. No cervical or axillary lymphadenopathy noted. Carotids are 2+, JVD 10-12 LUNGS: Bibasilar fine crackles noted. Right basal dullness noted. Occasional wheezing noted. CHEST: Palpation of the chest wall shows no significant chest wall tenderness. Right-sided defibrillator noted. 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 ABDOMEN: Soft, no significant tenderness appreciated, normoactive bowel sounds. No guarding, no rebound. No rigidity noted . No masses appreciated. EXTREMITIES: Pedal pulses are 1-2+, no calf tenderness noted. No clubbing or cyanosis. 2-3+ chronic pedal edema noted NEUROLOGICAL: Focused neurological exam showed no significant neurologic deficit. Normal speech, no focal weakness appreciated. PSYCH: Normal mood, normal affect. Judgment and insight within normal limits. SKIN: No significant ecchymosis, skin is noted to be warm. MUSCULOSKELETAL EXAM: No significant acute joint swelling noted. Results Laboratory Results: 05/05/18 04:12 05/05/18 04:12 05/05/18 05/05/18 04:12 04:12 WBC 4.4 RBC 2.86 L Hgb 7.7 L Hct 23.2 L MCV 81 MCH 27.1 MCHC 33.4 RDW 18.4 H Plt Count 134 L Seg Neutrophils % 57.5 Lymphocytes % 24.4 Monocytes % 12.2 Eosinophils % 4.6 Basophils % 1.3 Absolute Neutrophils 2.5 Absolute Lymphocytes 1.1 Absolute Monocytes 0.5 Absolute Eosinophils 0.2 Absolute Basophils 0.1 Sodium 143.5 Potassium 3.7 Chloride 83 L Carbon Dioxide 52 H* Anion Gap 9 BUN 82 H Creatinine 2.36 H Est GFR ( Amer) 33 L Est GFR (Non-Af Amer) 27 L Glucose 84 Calcium 8.8 04/19/18 04/20/18 04/20/18 22:07 03:52 10:12 Troponin I 0.019 0.026 0.027 NT-Pro-B Natriuret Pep 3510 H EKG Comments: Ventricular paced rhythm noted. Impressions: Chest X-Ray 04/28/18 00:00 IMPRESSION: Worsening pulmonary edema and/or superimposed pneumonia left lower lobe. Assessment & Plan - Diagnosis (1) CHF exacerbation Qualifiers: Heart failure type: combined systolic and diastolic Qualified Code(s): I50.9 - Heart failure, unspecified Is this a current diagnosis for this admission?: Yes (2) Acute and chronic respiratory failure Qualifiers: Respiratory failure complication: hypoxia and hypercapnia Qualified Code(s) : J96.21 - Acute and chronic respiratory failure with hypoxia; J96.22 - Acute and chronic respiratory failure with hypercapnia; J96.22 - Acute and chronic respiratory failure with hypercapnia; J96.22 - Acute and chronic respiratory failure with hypercapnia Is this a current diagnosis for this admission?: Yes (3) Anemia Qualifiers: Anemia type: due to chronic kidney disease Chronic kidney disease stage: stage 3 (moderate) Qualified Code(s): N18.3 - Chronic kidney disease, stage 3 (moderate); D63.1 - Anemia in chronic kidney disease; D63.1 - Anemia in chronic kidney disease Is this a current diagnosis for this admission?: Yes (4) Atrial fibrillation Qualifiers: Atrial fibrillation type: paroxysmal Qualified Code(s): I48.0 - Paroxysmal atrial fibrillation Is this a current diagnosis for this admission?: Yes (5) COPD (chronic obstructive pulmonary disease) Qualifiers: COPD type: unspecified COPD Qualified Code(s): J44.9 - Chronic obstructive pulmonary disease, unspecified Is this a current diagnosis for this admission?: Yes (6) Obesity hypoventilation syndrome Is this a current diagnosis for this admission?: Yes (7) Obstructive sleep apnea Is this a current diagnosis for this admission?: Yes - Notes Notes: Congestive heart failure: This is chronic congestive heart failure with acute exacerbation on presentation due to combined systolic and diastolic dysfunction along with significant contribution from right heart failure. At this point continue with diuretic therapy. Patient seems difficult to tolerate beta- tam. May consider adding may consider low-dose beta-tam therapy, KELSEY inhibitor/ARB/entresto therapy as tolerated by the blood pressure. Patient has anemia. Try to maintain hemoglobin above 8-9 g%. Acute on chronic respiratory failure: Related to COPD, obesity hypoventilation syndrome, sleep apnea syndrome. This is currently being adequately treated. Anemia: Recommend maintaining hemoglobin at least above 8 but optimal above 9 g % in CHF patient. Atrial fibrillation: Paroxysmal. Patient would be a candidate for chronic anticoagulation with newer anticoagulant but understand there may be contraindication because of anemia. COPD: Continue current management plans. Obesity hypoventilation syndrome: Continue with nightly bilevel/CPAP therapy as you have been doing. Obstructive sleep apnea: Continue current therapy with positive pressure noninvasive ventilation. Obesity: Patient will benefit from gradual weight loss. Patient understands this. General debility: Patient is very debilitated. Patient will benefit from physical therapy, rehab therapy etc. - Time Time Spent: 30 to 50 Minutes - CODE STATUS was discussed, patient remains full code. Surrogate decision-maker patient's son. Multiple medical problems were addressed. More than 50% of the time spent coordinating care, discussing management plans with involved caregivers. Management plans discussed with involved personnels. Medical decision making was of moderate to high complexity , patient's has multiple comorbidities. Medications reviewed and adjusted accordingly: Yes
--- NOTE | 2018-05-06 12:13 | PDOC PROGRESS REPORT ---
Subjective Progress Note for:: 05/06/18 Subjective:: Patient seems to be doing better with gradual improvement. Pt is denying any chest arm or neck discomfort. Patient denying any PND, orthopnea. Patient denied any sustained palpitations, dizziness, syncope, near syncope. Patient denying any fever chills. Patient denying any other significant discomfort. Patient is maintaining ventricular paced rhythm. Underlying atrial rhythm difficult to assess. Review of systems: Rest review of systems negative. Medications: Medications have been reviewed. Reason For Visit: ACUTE ON CHRONIC RESP FAILURE, CAD, CELLULITIS Physical Exam Vital Signs: Temp Pulse Resp BP Pulse Ox 98.3 F 60 17 98/47 L 100 05/06/18 11:14 05/06/18 11:14 05/06/18 11:14 05/06/18 11:14 05/06/18 11:14 Pulse Oximeter Continuous Start: 04/27/18 14: 06 Freq: RTQ4 Status: Active Document 05/06/18 08:31 TPO (Rec: 05/06/18 08:41 TPO [email or web address]) Pulse Oximetry Assessment Oxygen Saturation (92-100) 98 Oxygen Flow Rate (L/min) 3 Oxygen Delivery Method Nasal Cannula Fraction of Inspired Oxygen (FIO2) 32 Equipment Usage Equipment in Use Continuous SpO2 Machine # 5 Intake & Output 05/05/18 05/06/18 05/07/18 06:59 06:59 06:59 Intake Total 899 621 Output Total 0478 1675 Balance -1076 -454 Weight 125.9 kg Exam: GENERAL: well-nourished and in no acute distress. Alert and oriented x3 HEAD: Atraumatic, normocephalic. EYES: AMEENA, sclera anicteric, conjunctiva are normal. ENT: Moist mucous membranes. No oral ulcerations or bleeding gums noted. No obvious ear, nose or throat abnormalities noted. NECK: supple without lymphadenopathy. Trachea is central. No cervical or axillary lymphadenopathy noted. Carotids are 2+, JVD approximately 10 cm. LUNGS: Bibasilar fine crackles noted. Right basal dullness noted. CHEST: Palpation of the chest wall shows no significant chest wall tenderness. 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 ABDOMEN: Soft, no significant tenderness appreciated, normoactive bowel sounds. No guarding, no rebound. No rigidity noted . No masses appreciated. EXTREMITIES: Pedal pulses are 1-2+, no calf tenderness noted. No clubbing or cyanosis. negative pedal edema noted NEUROLOGICAL: Focused neurological exam showed no significant neurologic deficit. Normal speech, no focal weakness appreciated. PSYCH: Normal mood, normal affect. Judgment and insight within normal limits. SKIN: No significant ecchymosis, skin is noted to be warm. MUSCULOSKELETAL EXAM: No significant acute joint swelling noted. Results Laboratory Results: 05/06/18 08:53 05/06/18 08:53 05/06/18 05/06/18 05/06/18 06:20 08:53 08:53 WBC 5.5 RBC 2.99 L Hgb 7.7 L Hct 24.8 L MCV 83 MCH 25.8 L MCHC 31.1 L RDW 18.5 H Plt Count 151 Seg Neutrophils % 63.8 Lymphocytes % 23.3 Monocytes % 8.8 Eosinophils % 3.2 Basophils % 0.9 Absolute Neutrophils 3.5 Absolute Lymphocytes 1.3 Absolute Monocytes 0.5 Absolute Eosinophils 0.2 Absolute Basophils 0.0 Carbonic Acid 1.69 H HCO3/H2CO3 Ratio 24:1 ABG pH 7.48 H ABG pCO2 56.1 H ABG pO2 61.6 L ABG HCO3 40.9 H ABG O2 Saturation 92.6 L ABG Base Excess 15.5 FiO2 25% Sodium 144.2 Potassium 4.1 Chloride 86 L Carbon Dioxide 44 H* Anion Gap 14 BUN 83 H Creatinine 2.36 H Est GFR ( Amer) 33 L Est GFR (Non-Af Amer) 27 L Glucose 109 Calcium 9.1 04/19/18 04/20/18 04/20/18 22:07 03:52 10:12 Troponin I 0.019 0.026 0.027 NT-Pro-B Natriuret Pep 3510 H EKG Comments: Telemetry shows AV paced rhythm. Impressions: Chest X-Ray 04/28/18 00:00 IMPRESSION: Worsening pulmonary edema and/or superimposed pneumonia left lower lobe. Assessment & Plan - Diagnosis (1) CHF exacerbation Qualifiers: Heart failure type: combined systolic and diastolic Qualified Code(s): I50.43 - Acute on chronic combined systolic (congestive) and diastolic ( congestive) heart failure Is this a current diagnosis for this admission?: Yes (2) Acute and chronic respiratory failure Qualifiers: Respiratory failure complication: hypoxia and hypercapnia Qualified Code(s) : J96.21 - Acute and chronic respiratory failure with hypoxia; J96.22 - Acute and chronic respiratory failure with hypercapnia; J96.22 - Acute and chronic respiratory failure with hypercapnia; J96.22 - Acute and chronic respiratory failure with hypercapnia Is this a current diagnosis for this admission?: Yes (3) Anemia Qualifiers: Anemia type: due to chronic kidney disease Chronic kidney disease stage: stage 3 (moderate) Qualified Code(s): N18.3 - Chronic kidney disease, stage 3 (moderate); D63.1 - Anemia in chronic kidney disease; D63.1 - Anemia in chronic kidney disease Is this a current diagnosis for this admission?: Yes (4) Atrial fibrillation Qualifiers: Atrial fibrillation type: paroxysmal Qualified Code(s): I48.0 - Paroxysmal atrial fibrillation Is this a current diagnosis for this admission?: Yes (5) COPD (chronic obstructive pulmonary disease) Qualifiers: COPD type: unspecified COPD Qualified Code(s): J44.9 - Chronic obstructive pulmonary disease, unspecified Is this a current diagnosis for this admission?: Yes (6) Obesity hypoventilation syndrome Is this a current diagnosis for this admission?: Yes (7) Obstructive sleep apnea Is this a current diagnosis for this admission?: Yes - Notes Notes: Congestive heart failure: This is chronic congestive heart failure with acute exacerbation on presentation due to combined systolic and diastolic dysfunction along with significant contribution from right heart failure. At this point continue with diuretic therapy. Patient seems difficult to tolerate beta- tam. May consider adding may consider low-dose beta-tam therapy, KELSEY inhibitor/ARB/entresto therapy as tolerated by the blood pressure. Patient has anemia. Try to maintain hemoglobin above 8-9 g%. I am told patient is to receive 2 units of blood transfusion with which I agree. Currently CHF is fairly compensated. Chronic leg edema could be partly due to venous insufficiency. The pleural effusion may take a long time to resolve and get reabsorbed. Acute on chronic respiratory failure: Related to COPD, obesity hypoventilation syndrome, sleep apnea syndrome. This is currently being adequately treated. Anemia: Recommend maintaining hemoglobin at least above 8 but optimal above 9 g % in CHF patient. I am told patient is getting some blood transfusion today with which I agree. Atrial fibrillation: Paroxysmal. Patient would be a candidate for chronic anticoagulation with newer anticoagulant. Patient noted to be on Eliquis therapy which can be continued. Currently no active ongoing bleed noted. COPD: Continue current management plans. Obesity hypoventilation syndrome: Continue with nightly bilevel/CPAP therapy as you have been doing. Obstructive sleep apnea: Continue current therapy with positive pressure noninvasive ventilation. Obesity: Patient will benefit from gradual weight loss. Patient understands this. General debility: Patient is very debilitated. Patient will benefit from physical therapy, rehab therapy etc. Patient has seen me before in my office therefore can follow-up with me. - Time Time with patient: Greater than 35 minutes - CODE STATUS was discussed, patient remains full code. Surrogate decision-maker unchanged. Multiple medical problems were addressed. More than 50% of the time spent coordinating care, discussing management plans with involved caregivers. Management plans discussed with involved personnels. Medical decision making was of moderate to high complexity, patient's has multiple comorbidities. Medications reviewed and adjusted accordingly: Yes
--- NOTE | 2018-05-06 14:17 | PDOC PROGRESS REPORT ---
Subjective Progress Note for:: 05/06/18 - seen on rounds this morning Subjective:: spoke with patient this morning. states he's feeling better. he's sitting on his recliner and watching TV. denies chest pain, SOB or abdominal pain. his son came in during the visit. spoke with him and his son about patients care. patient wants to go home- advised that we are still trying to optimize his medications for his heart failure before he goes home. doughnut maker has also been consulted and is evaluating patient. Reason For Visit: ACUTE ON CHRONIC RESP FAILURE, CAD, CELLULITIS Physical Exam Vital Signs: Temp Pulse Resp BP Pulse Ox 97.2 F 60 16 105/49 L 96 05/06/18 13:37 05/06/18 13:37 05/06/18 13:37 05/06/18 13:37 05/06/18 13:37 Pulse Oximeter Continuous Start: 04/27/18 14: 06 Freq: RTQ4 Status: Active Document 05/06/18 08:31 TPO (Rec: 05/06/18 08:41 TPO [email or web address]) Pulse Oximetry Assessment Oxygen Saturation (92-100) 98 Oxygen Flow Rate (L/min) 3 Oxygen Delivery Method Nasal Cannula Fraction of Inspired Oxygen (FIO2) 32 Equipment Usage Equipment in Use Continuous SpO2 Machine # 5 Intake & Output 05/05/18 05/06/18 05/07/18 06:59 06:59 06:59 Intake Total 899 621 236 Output Total 6629 1855 300 Balance -1076 -454 -64 Weight 277 lb 8.992 oz General appearance: PRESENT: no acute distress, disheveled, other - appears much older than stated age Head exam: PRESENT: atraumatic, normocephalic Eye exam: PRESENT: EOMI. ABSENT: scleral icterus Ear exam: PRESENT: normal external ear exam Mouth exam: PRESENT: moist, tongue midline Teeth exam: PRESENT: poor dentation Respiratory exam: PRESENT: decreased breath sounds - bilaterally but mostly at the bases, symmetrical, wheezes - scattered wheezing bilaterally Cardiovascular exam: PRESENT: +S1, +S2 Pulses: PRESENT: +2 pedal pulses bilateral GI/Abdominal exam: PRESENT: normal bowel sounds, soft. ABSENT: tenderness Extremities exam: PRESENT: +2 edema - bilateral lower LE edema 2+ up to knee Neurological exam: PRESENT: alert, awake, oriented to person, oriented to place , oriented to time, oriented to situation, CN II-XII grossly intact Skin exam: PRESENT: dry, erythema - bilateral LE erythema- left chun does have a stasis ulcer- erythematous and mild TTP, warm Results Laboratory Results: 05/06/18 08:53 05/06/18 08:53 05/06/18 05/06/18 05/06/18 06:20 08:53 08:53 WBC 5.5 RBC 2.99 L Hgb 7.7 L Hct 24.8 L MCV 83 MCH 25.8 L MCHC 31.1 L RDW 18.5 H Plt Count 151 Seg Neutrophils % 63.8 Lymphocytes % 23.3 Monocytes % 8.8 Eosinophils % 3.2 Basophils % 0.9 Absolute Neutrophils 3.5 Absolute Lymphocytes 1.3 Absolute Monocytes 0.5 Absolute Eosinophils 0.2 Absolute Basophils 0.0 Carbonic Acid 1.69 H HCO3/H2CO3 Ratio 24:1 ABG pH 7.48 H ABG pCO2 56.1 H ABG pO2 61.6 L ABG HCO3 40.9 H ABG O2 Saturation 92.6 L ABG Base Excess 15.5 FiO2 25% Sodium 144.2 Potassium 4.1 Chloride 86 L Carbon Dioxide 44 H* Anion Gap 14 BUN 83 H Creatinine 2.36 H Est GFR ( Amer) 33 L Est GFR (Non-Af Amer) 27 L Glucose 109 Calcium 9.1 Blood Type Antibody Screen 05/06/18 12:08 WBC RBC Hgb Hct MCV MCH MCHC RDW Plt Count Seg Neutrophils % Lymphocytes % Monocytes % Eosinophils % Basophils % Absolute Neutrophils Absolute Lymphocytes Absolute Monocytes Absolute Eosinophils Absolute Basophils Carbonic Acid HCO3/H2CO3 Ratio ABG pH ABG pCO2 ABG pO2 ABG HCO3 ABG O2 Saturation ABG Base Excess FiO2 Sodium Potassium Chloride Carbon Dioxide Anion Gap BUN Creatinine Est GFR ( Amer) Est GFR (Non-Af Amer) Glucose Calcium Blood Type B POSITIVE Antibody Screen NEGATIVE 04/19/18 04/20/18 04/20/18 22:07 03:52 10:12 Troponin I 0.019 0.026 0.027 NT-Pro-B Natriuret Pep 3510 H Impressions: Chest X-Ray 04/28/18 00:00 IMPRESSION: Worsening pulmonary edema and/or superimposed pneumonia left lower lobe. Assessment & Plan - Diagnosis (2) Acute and chronic respiratory failure Qualifiers: Respiratory failure complication: hypoxia and hypercapnia Qualified Code(s) : J96.21 - Acute and chronic respiratory failure with hypoxia; J96.22 - Acute and chronic respiratory failure with hypercapnia; J96.22 - Acute and chronic respiratory failure with hypercapnia; J96.22 - Acute and chronic respiratory failure with hypercapnia Is this a current diagnosis for this admission?: Yes (4) Acute respiratory failure with hypoxia and hypercarbia Is this a current diagnosis for this admission?: Yes (5) CHF exacerbation Qualifiers: Heart failure type: combined systolic and diastolic Qualified Code(s): I50.43 - Acute on chronic combined systolic (congestive) and diastolic ( congestive) heart failure Is this a current diagnosis for this admission?: Yes (6) CKD (chronic kidney disease) stage 3, GFR 30-59 ml/min Is this a current diagnosis for this admission?: Yes (7) Chronic anticoagulation Is this a current diagnosis for this admission?: Yes (8) Obesity (BMI 30-39.9) Is this a current diagnosis for this admission?: Yes (9) Obstructive sleep apnea Is this a current diagnosis for this admission?: Yes (10) Stasis ulcer of left lower extremity Is this a current diagnosis for this admission?: Yes (11) Acute on chronic anemia Is this a current diagnosis for this admission?: Yes - Time Time Spent with patient: 25-34 minutes - Plan Summary Plan Summary: acute exacerbation of CHF- currently on Lasix 60mg daily- was lowered from BID dosing. New ECHO pending. but his previous ECHO showed preserved EF 65%. ? diastolic HF. will await new ECHO findings. he was on lasix gtt prior to PO transition. he continues to have LE edema 2+. continue to diurese him. Cardiology has been consulted and is following- appreciate recommendations and consult. I spoke with Dr Still today about this care- considering raising his Lasix dosing again. pending ECHO results and possible DC in 2-3 days if he continues to improve Cellulitis- on doxy - he does have a left LE wound- stasis ulcer- c/w local wound care. Will consider stopping Doxy in 1-2 days since he's already been on it for about 10 days or so. Acute on chronic resp failure with hypoxia and hypercapnia- back to baseline 3L O2 that he's at home- c/w nebulizers and inhalers as scheduled. his respiratory failure is multifactorial- COPD, CHF and likely pickwickian syndrome. SUNNY- c/w Bipap/CPAP at night. discussed about weight loss- he's aware Acute on chronic anemia- Hb 7.7 this morning. given all his cardiac history- he would benefit from Hb >8. he has already received 2u during this admission. will transfuse 1u today. likely his acute anemia is 2/2 CKD and is anemia of chronic disease. repeat CBC in AM. lasix post transition.
[2018-05-06 18:38] LABS: HEMATOCRIT 25.6 % (37.9-51.0); HEMOGLOBIN 8.1 g/dL (13.5-17.0); MEAN CORPUSCULAR HEMOGLOBIN 26.6 pg (27.0-33.4); MEAN CORPUSCULAR HGB CONC 31.8 g/dL (32.0-36.0); MEAN CORPUSCULAR VOLUME 84 fl (80-97); PLATELET COUNT 150 10^3/uL (150-450); RED BLOOD COUNT 3.06 10^6/uL (4.35-5.55); RED CELL DISTRIBUTION WIDTH 18.1 % (11.5-14.0); WHITE BLOOD COUNT 4.9 10^3/uL (4.0-10.5)
--- NOTE | 2018-05-06 18:41 | XCELERA REPORT ---
[address] [address] Transthoracic Echocardiogram Report Name: DANIEL OLIVA Age: 72 yrs Gender: Male : 1945 Patient Status: Inpatient Patient Location: [address] [place], [place] [id number] Study Date: 05/06/2018 12:23 PM Height: 70 in Weight: 277 lb BSA: 2.4 m2 Procedure: A complete two-dimensional transthoracic echocardiogram was performed (2D, M-mode, spectral and color flow Doppler). The study was technically difficult with many images being suboptimal in quality. Reason For Study: Recurrent CHF Ordering Physician: FARZANA BASS Performed By: rKisti Motta Interpretation Summary The Ejection Fraction estimate is 35-40% Left ventricular systolic function is moderately reduced. There is mild concentric left ventricular hypertrophy. The left ventricle is mildly dilated. Doppler measurements suggest pseudonormalized left ventricular relaxation, which is associated with grade II/IV or mild to moderate diastolic dysfunction There is anteroseptal wall dyskinesis There is apical wall dyskinesis The right ventricle is mild to moderately dilated. The left atrium is severely dilated. The right atrium is severely dilated. There is a trace to mild amount of mitral regurgitation There is no mitral valve stenosis. No aortic regurgitation is present. There is no aortic valve stenosis There is a trace or physiologic amount of tricuspid regurgitation Tricuspid regurgitation jet envelope not well defined to measure RV systolic pressure accurately. The aortic root is not well visualized. The inferior vena cava appeared dilated and decreased < 50% with respiration (RAP 15-20 mmHg) Minimal pericardial effusion. Small right pleural effusion. Consider alternative methods to evaluate LVEF such as MUGA scan, cardiac MRI, or cardiac CTA. MMode/2D Measurements & Calculations RVDd: 2.6 cm LVIDd: 6.6 cm FS: 29.9 % Ao root diam: 3.5 cm IVSd: 0.76 cm LVIDs: 4.6 cm EDV(Teich): 219.8 ml Ao root area: 9.4 cm2 LVPWd: 1.0 cm ESV(Teich): 97.0 ml LA dimension: 5.4 cm EF(Teich): 55.9 % LVOT diam: 2.4 cm LVOT area: 4.4 cm2 Doppler Measurements & Calculations MV E max vika: MV P1/2t max vika: Ao V2 max: LV V1 max P.7 cm/sec 97.7 cm/sec 111.8 cm/sec 1.9 mmHg MV P1/2t: 56.7 msec Ao max P.0 mmHg LV V1 max: MVA(P1/2t): 3.9 cm2 RHONDA(V,D): 2.7 cm2 68.6 cm/sec MV dec slope: 505.2 cm/sec2 MV dec time: 0.20 sec PA V2 max: PI end-d vika: MV P1/2t-pr_phl: 107.6 cm/sec 98.8 cm/sec 56.7 msec PA max P.6 mmHg Left Ventricle The left ventricle is mildly dilated. There is mild concentric left ventricular hypertrophy. Left ventricular systolic function is moderately reduced. The Ejection Fraction estimate is 35-40%. Doppler measurements suggest pseudonormalized left ventricular relaxation, which is associated with grade II/IV or mild to moderate diastolic dysfunction. There is anteroseptal wall dyskinesis. There is apical wall dyskinesis. Right Ventricle The right ventricle is mild to moderately dilated. The right ventricular systolic function is mild to moderately reduced. Atria The right atrium is severely dilated. The left atrium is severely dilated. Interarterial septum not well visualized and not well dopplered. Cannot comment on ASD/PFO presence. Mitral Valve The mitral valve leaflets are sclerotic, but show no functional abnormalities. There is no mitral valve stenosis. There is a trace to mild amount of mitral regurgitation. Aortic Valve The aortic valve is not well visualized secondary to technical limitations. There is no aortic valve stenosis. No aortic regurgitation is present. Tricuspid Valve The tricuspid valve is not well visualized secondary to technical limitations. There is no tricuspid stenosis. There is a trace or physiologic amount of tricuspid regurgitation. Tricuspid regurgitation jet envelope not well defined to measure RV systolic pressure accurately. Pulmonic Valve The pulmonic valve is not well visualized. Great Vessels The aortic root is not well visualized. The inferior vena cava appeared dilated and decreased < 50% with respiration (RAP 15-20 mmHg). Effusions Minimal pericardial effusion. Small right pleural effusion. Incidental Findings Consider alternative methods to evaluate LVEF such as MUGA scan, cardiac MRI, or cardiac CTA. : FARZANA BASS > Farzana Bass
[2018-05-06] MEDS: ATORVASTATIN CALCIUM 40 MG TABLET PO SCH (21:24)
[2018-05-07 05:20] LABS: HEMATOCRIT 27.3 % (37.9-51.0); HEMOGLOBIN 8.7 g/dL (13.5-17.0); MEAN CORPUSCULAR HEMOGLOBIN 26.5 pg (27.0-33.4); MEAN CORPUSCULAR HGB CONC 31.8 g/dL (32.0-36.0); MEAN CORPUSCULAR VOLUME 83 fl (80-97); PLATELET COUNT 158 10^3/uL (150-450); RED BLOOD COUNT 3.27 10^6/uL (4.35-5.55); RED CELL DISTRIBUTION WIDTH 18.3 % (11.5-14.0); WHITE BLOOD COUNT 5.1 10^3/uL (4.0-10.5)
[2018-05-07 05:41] LABS: BLOOD UREA NITROGEN 78 mg/dL (7-20); CALCIUM 9.1 mg/dL (8.4-10.2); CHLORIDE 89 mmol/L (98-107); GLUCOSE 87 mg/dL (75-110); POTASSIUM 4.2 mmol/L (3.6-5.0); SODIUM 145.5 mmol/L (137-145)
[2018-05-07 06:06] LABS: ANION GAP 12 (5-19)
[2018-05-07 06:07] LABS: CARBON DIOXIDE 45 mmol/L (22-30)
[2018-05-07] MEDS: ACETAZOLAMIDE 250 MG TABLET PO SCH (06:16)
[2018-05-07] MEDS: MORPHINE SULFATE SR 15 MG TABLET PO SCH ×2 (06:16→18:22)
[2018-05-07] MEDS: ALBUTEROL SULFATE 0.083% NEB 2.5 MG/3 ML AMPUL NEB PRN ×2 (07:54→20:35)
[2018-05-07] MEDS: BUDESONIDE NEB 0.5 MG/2 ML AMPUL NEB SCH ×2 (07:54→20:35)
[2018-05-07] MEDS: POTASSIUM CHLORIDE 10 MEQ CAPSULE.ER PO SCH ×3 (09:29→18:23)
[2018-05-07] MEDS: DOCUSATE SODIUM 100 MG CAPSULE PO SCH ×2 (09:29→18:22)
[2018-05-07] MEDS: APIXABAN 5 MG TABLET PO SCH ×2 (09:30→18:22)
[2018-05-07] MEDS: FUROSEMIDE 40 MG TABLET PO SCH (09:30)
[2018-05-07] MEDS: FLUTICASONE/SALMETEROL DISKUS 250-50 MCG/DOSE IH SCH ×2 (09:30→22:03)
[2018-05-07] MEDS: ASPIRIN 81 MG TABLET, CHEWABLE PO SCH (09:30)
[2018-05-07] MEDS: SERTRALINE HCL 50 MG TABLET PO SCH (09:32)
[2018-05-07] MEDS: DOXYCYCLINE HYCLATE 100 MG TABLET PO SCH ×2 (09:32→18:22)
--- NOTE | 2018-05-07 12:31 | PDOC PROGRESS REPORT ---
Subjective Progress Note for:: 05/07/18 Subjective:: Patient received 1 unit of blood transfusion without any complications. He is sitting by the side of the bed eating breakfast without any complaints. Still has significant pedal edema. Patient seems to be doing better with gradual improvement. Pt is denying any chest arm or neck discomfort. Patient denying any PND, orthopnea. Patient denied any sustained palpitations, dizziness, syncope, near syncope. Patient denying any fever chills. Patient denying any other significant discomfort. Patient is maintaining ventricular paced rhythm. Underlying atrial rhythm difficult to assess. Review of systems: Rest review of systems negative. Medications: Medications have been reviewed. Reason For Visit: ACUTE ON CHRONIC RESP FAILURE, CAD, CELLULITIS Physical Exam Vital Signs: Temp Pulse Resp BP Pulse Ox 98.0 F 60 16 87/43 L 100 05/07/18 11:35 05/07/18 11:35 05/07/18 11:35 05/07/18 11:35 05/07/18 11:35 Pulse Oximeter Continuous Start: 04/27/18 14: 06 Freq: RTQ4 Status: Active Document 05/07/18 07:54 TPO (Rec: 05/07/18 08:20 TPO [email or web address]) Pulse Oximetry Assessment Oxygen Saturation (92-100) 100 Oxygen Delivery Method AVAP Fraction of Inspired Oxygen (FIO2) 40 Equipment Usage Equipment in Use Continuous Pulse Oximeter 24 Hour Charge Charge Now Continuous SpO2 Machine # 5 Intake & Output 05/06/18 05/07/18 05/08/18 06:59 06:59 06:59 Intake Total 621 957 635 Output Total 1075 2450 500 Balance -454 -1493 135 Weight 127.5 kg Exam: GENERAL: well-nourished and in no acute distress. Alert and oriented x3 HEAD: Atraumatic, normocephalic. EYES: AMEENA, sclera anicteric, conjunctiva are normal. ENT: Moist mucous membranes. No oral ulcerations or bleeding gums noted. No obvious ear, nose or throat abnormalities noted. NECK: supple without lymphadenopathy. Trachea is central. No cervical or axillary lymphadenopathy noted. Carotids are 2+, JVD 10 cm LUNGS: Right-sided diminished breath sounds at bases with mild dullness noted on percussion. Bibasilar fine crackles are noted. CHEST: Palpation of the chest wall shows no significant chest wall tenderness. HEART: [place] [facility], No PSH, 1/6 BARBI aortic area, 1/6 richards systolic murmur mitral area, no rubs, no gallops. ABDOMEN: Soft, no significant tenderness appreciated, normoactive bowel sounds. No guarding, no rebound. No rigidity noted . No masses appreciated. EXTREMITIES: Pedal pulses are 1-2+, no calf tenderness noted. No clubbing or cyanosis. 2 to 3 plus Pedal edema noted. NEUROLOGICAL: Focused neurological exam showed no significant neurologic deficit. Normal speech, no focal weakness appreciated. PSYCH: Normal mood, normal affect. Judgment and insight within normal limits. SKIN: No significant ecchymosis, skin is noted to be warm. Patient has its left lower leg in dressing covering a wound. MUSCULOSKELETAL EXAM: No significant acute joint swelling noted. Results Laboratory Results: 05/07/18 04:25 05/07/18 04:25 05/06/18 05/06/18 05/07/18 12:08 18:20 04:25 WBC 4.9 5.1 RBC 3.06 L 3.27 L Hgb 8.1 L 8.7 L Hct 25.6 L 27.3 L MCV 84 83 MCH 26.6 L 26.5 L MCHC 31.8 L 31.8 L RDW 18.1 H 18.3 H Plt Count 150 158 Sodium Potassium Chloride Carbon Dioxide Anion Gap BUN Creatinine Est GFR ( Amer) Est GFR (Non-Af Amer) Glucose Calcium Magnesium Blood Type B POSITIVE Antibody Screen NEGATIVE 05/07/18 04:25 WBC RBC Hgb Hct MCV MCH MCHC RDW Plt Count Sodium 145.5 H Potassium 4.2 Chloride 89 L Carbon Dioxide 45 H* Anion Gap 12 BUN 78 H Creatinine 2.18 H Est GFR ( Amer) 36 L Est GFR (Non-Af Amer) 30 L Glucose 87 Calcium 9.1 Magnesium 2.4 H Blood Type Antibody Screen 04/19/18 04/20/18 04/20/18 22:07 03:52 10:12 Troponin I 0.019 0.026 0.027 NT-Pro-B Natriuret Pep 3510 H EKG Comments: Shows AV paced rhythm. Impressions: Chest X-Ray 04/28/18 00:00 IMPRESSION: Worsening pulmonary edema and/or superimposed pneumonia left lower lobe. Assessment & Plan - Diagnosis (1) CHF exacerbation Qualifiers: Heart failure type: combined systolic and diastolic Qualified Code(s): I50.43 - Acute on chronic combined systolic (congestive) and diastolic ( congestive) heart failure Is this a current diagnosis for this admission?: Yes (2) Acute and chronic respiratory failure Qualifiers: Respiratory failure complication: hypoxia and hypercapnia Qualified Code(s) : J96.21 - Acute and chronic respiratory failure with hypoxia; J96.22 - Acute and chronic respiratory failure with hypercapnia; J96.22 - Acute and chronic respiratory failure with hypercapnia; J96.22 - Acute and chronic respiratory failure with hypercapnia Is this a current diagnosis for this admission?: Yes (3) Anemia Qualifiers: Anemia type: due to chronic kidney disease Chronic kidney disease stage: stage 3 (moderate) Qualified Code(s): N18.3 - Chronic kidney disease, stage 3 (moderate); D63.1 - Anemia in chronic kidney disease; D63.1 - Anemia in chronic kidney disease Is this a current diagnosis for this admission?: Yes (4) Atrial fibrillation Qualifiers: Atrial fibrillation type: paroxysmal Qualified Code(s): I48.0 - Paroxysmal atrial fibrillation Is this a current diagnosis for this admission?: Yes (5) COPD (chronic obstructive pulmonary disease) Qualifiers: COPD type: unspecified COPD Qualified Code(s): J44.9 - Chronic obstructive pulmonary disease, unspecified Is this a current diagnosis for this admission?: Yes (6) Obesity hypoventilation syndrome Is this a current diagnosis for this admission?: Yes (7) Obstructive sleep apnea Is this a current diagnosis for this admission?: Yes - Notes Notes: Patient received 1 unit of blood transfusion. He is otherwise noted to be stable with mild fluid overload been present. Continue current dose of diuretic therapy. Patient will benefit from increases in his physical activities. Congestive heart failure: This is chronic congestive heart failure with acute exacerbation on presentation due to combined systolic and diastolic dysfunction along with significant contribution from right heart failure. At this point continue with diuretic therapy. Patient seems difficult to tolerate beta- tam. May consider adding may consider low-dose beta-tam therapy, KELSEY inhibitor/ARB/entresto therapy as tolerated by the blood pressure. Patient has anemia. Chronic leg edema: Could be partly due to venous insufficiency. However could well be from CHF. The pleural effusion may take a long time to resolve and get reabsorbed. Acute on chronic respiratory failure: Related to COPD, obesity hypoventilation syndrome, sleep apnea syndrome. This is currently being adequately treated. Anemia: Recommend maintaining hemoglobin at least above 8 but optimal above 9 g % in CHF patient. I am told patient is getting some blood transfusion today with which I agree. Atrial fibrillation: Paroxysmal. Patient is a candidate for chronic anticoagulation with newer anticoagulant. Patient noted to be on Eliquis therapy which can be continued. Currently no active ongoing bleed noted. COPD: Continue current management plans. Obesity hypoventilation syndrome: Continue with nightly bilevel/CPAP therapy as you have been doing. Obstructive sleep apnea: Continue current therapy with positive pressure noninvasive ventilation. Obesity: Patient will benefit from gradual weight loss. Patient understands this. General debility: Patient is very debilitated. Patient will benefit from physical therapy, rehab therapy etc. Patient has seen me before in my office therefore can follow-up with me. - Time Time with patient: Greater than 35 minutes - CODE STATUS was discussed, patient remains full code. Surrogate decision-maker unchanged. Multiple medical problems were addressed. More than 50% of the time spent coordinating care, discussing management plans with involved caregivers. Management plans discussed with involved personnels. Medical decision making was of moderate to high complexity, patient's has multiple comorbidities. Medications reviewed and adjusted accordingly: Yes
--- NOTE | 2018-05-07 12:38 | PDOC PROGRESS REPORT ---
Subjective Progress Note for:: 05/07/18 - seen on rounds this morning Subjective:: states he can't sleep- states people keep coming and going in the room- he's upset about that. otherwise states he has no acute complaints Reason For Visit: ACUTE ON CHRONIC RESP FAILURE, CAD, CELLULITIS Physical Exam Vital Signs: Temp Pulse Resp BP Pulse Ox 98.0 F 60 16 87/43 L 100 05/07/18 11:35 05/07/18 11:35 05/07/18 11:35 05/07/18 11:35 05/07/18 11:35 Pulse Oximeter Continuous Start: 04/27/18 14: 06 Freq: RTQ4 Status: Active Document 05/07/18 07:54 TPO (Rec: 05/07/18 08:20 TPO [email or web address]) Pulse Oximetry Assessment Oxygen Saturation (92-100) 100 Oxygen Delivery Method AVAP Fraction of Inspired Oxygen (FIO2) 40 Equipment Usage Equipment in Use Continuous Pulse Oximeter 24 Hour Charge Charge Now Continuous SpO2 Machine # 5 Intake & Output 05/06/18 05/07/18 05/08/18 06:59 06:59 06:59 Intake Total 621 957 635 Output Total 1075 2450 500 Balance -454 -1493 135 Weight 281 lb 1.43 oz General appearance: PRESENT: no acute distress Head exam: PRESENT: atraumatic, normocephalic Eye exam: PRESENT: EOMI. ABSENT: scleral icterus Ear exam: PRESENT: normal external ear exam Teeth exam: PRESENT: poor dentation Neck exam: ABSENT: tracheal deviation Respiratory exam: PRESENT: decreased breath sounds - bilaterally - mostly at the bases- will occasional expiratory wheezing, symmetrical, wheezes Cardiovascular exam: PRESENT: +S1, +S2 Pulses: PRESENT: +2 pedal pulses bilateral GI/Abdominal exam: PRESENT: firm - somewhat firm- but non tender, normal bowel sounds. ABSENT: tenderness Extremities exam: PRESENT: pedal edema, other - b/l LE edema- improved- 1-2+, mostly pedal and up to chun Skin exam: PRESENT: erythema - b/l LE erythema- left chun wrapped in jensen- did not open Results Laboratory Results: 05/07/18 04:25 05/07/18 04:25 05/06/18 05/06/18 05/07/18 12:08 18:20 04:25 WBC 4.9 5.1 RBC 3.06 L 3.27 L Hgb 8.1 L 8.7 L Hct 25.6 L 27.3 L MCV 84 83 MCH 26.6 L 26.5 L MCHC 31.8 L 31.8 L RDW 18.1 H 18.3 H Plt Count 150 158 Sodium Potassium Chloride Carbon Dioxide Anion Gap BUN Creatinine Est GFR ( Amer) Est GFR (Non-Af Amer) Glucose Calcium Magnesium Blood Type B POSITIVE Antibody Screen NEGATIVE 05/07/18 04:25 WBC RBC Hgb Hct MCV MCH MCHC RDW Plt Count Sodium 145.5 H Potassium 4.2 Chloride 89 L Carbon Dioxide 45 H* Anion Gap 12 BUN 78 H Creatinine 2.18 H Est GFR ( Amer) 36 L Est GFR (Non-Af Amer) 30 L Glucose 87 Calcium 9.1 Magnesium 2.4 H Blood Type Antibody Screen 04/19/18 04/20/18 04/20/18 22:07 03:52 10:12 Troponin I 0.019 0.026 0.027 NT-Pro-B Natriuret Pep 3510 H Impressions: Chest X-Ray 04/28/18 00:00 IMPRESSION: Worsening pulmonary edema and/or superimposed pneumonia left lower lobe. Assessment & Plan - Diagnosis (1) Acute on chronic combined systolic and diastolic CHF (congestive heart failure) Is this a current diagnosis for this admission?: Yes (2) Acute and chronic respiratory failure Qualifiers: Respiratory failure complication: hypoxia and hypercapnia Qualified Code(s) : J96.21 - Acute and chronic respiratory failure with hypoxia; J96.22 - Acute and chronic respiratory failure with hypercapnia; J96.22 - Acute and chronic respiratory failure with hypercapnia; J96.22 - Acute and chronic respiratory failure with hypercapnia Is this a current diagnosis for this admission?: Yes (4) Acute respiratory failure with hypoxia and hypercarbia Is this a current diagnosis for this admission?: Yes (5) CHF exacerbation Qualifiers: Heart failure type: combined systolic and diastolic Qualified Code(s): I50.43 - Acute on chronic combined systolic (congestive) and diastolic ( congestive) heart failure Is this a current diagnosis for this admission?: Yes (6) CKD (chronic kidney disease) stage 3, GFR 30-59 ml/min Is this a current diagnosis for this admission?: Yes (7) Chronic anticoagulation Is this a current diagnosis for this admission?: Yes (8) Obesity (BMI 30-39.9) Is this a current diagnosis for this admission?: Yes (9) Obstructive sleep apnea Is this a current diagnosis for this admission?: Yes (10) Stasis ulcer of left lower extremity Is this a current diagnosis for this admission?: Yes (11) Acute on chronic anemia Is this a current diagnosis for this admission?: Yes - Time Time Spent with patient: 15-24 minutes - Plan Summary Plan Summary: acute exacerbation of CHF- improving- currently on Lasix 60mg daily- ECHO completed- shows systolic dysfunction with EF 35%- likely he has combined systolic/diastolic HF. he was on lasix gtt prior to PO transition. continue to diurese him. Cardiology has been consulted and is following- appreciate recommendations and consult. Cellulitis- on doxy for abdominal wall cellulitis- unclear cause of the cellulitis- he's been on it since 04/25/18- will d/c it today - he does have a left LE wound- stasis ulcer- c/w local wound care. Acute on chronic resp failure with hypoxia and hypercapnia- back to baseline 3L O2 that he's at home- c/w nebulizers and inhalers as scheduled. his respiratory failure is multifactorial- COPD, CHF and likely pickwickian syndrome. i have also spoken with Dr Gonzales today about this care- Dr Gonzales was kind to see him today- i am also going to stop his Diamox at this time. SUNNY- c/w Bipap/CPAP at night. discussed about weight loss- he's aware Acute on chronic anemia- s/p 1u pRBC on 05/06/18- Hb >8 this morning. given all his cardiac history- he would benefit from Hb >8. he has already received 2u during this admission. likely his acute anemia is 2/2 CKD and is anemia of chronic disease. monitor levels for now- i do not feel he has an acute bleed at this time.
[2018-05-07] MEDS: TIOTROPIUM BROMIDE DPI 5 CAP/KIT (18 MCG/CAP) IH SCH (14:21)
[2018-05-07] MEDS: MORPHINE SULFATE 10 MG/5 ML ORAL SOLUTION UDCUP PO PRN (22:03)
[2018-05-07] MEDS: ATORVASTATIN CALCIUM 40 MG TABLET PO SCH (22:03)
[2018-05-08 05:35] LABS: HEMATOCRIT 26.6 % (37.9-51.0); HEMOGLOBIN 8.5 g/dL (13.5-17.0); MEAN CORPUSCULAR HEMOGLOBIN 26.7 pg (27.0-33.4); MEAN CORPUSCULAR VOLUME 84 fl (80-97); PLATELET COUNT 147 10^3/uL (150-450); RED BLOOD COUNT 3.19 10^6/uL (4.35-5.55); RED CELL DISTRIBUTION WIDTH 18.5 % (11.5-14.0); WHITE BLOOD COUNT 4.1 10^3/uL (4.0-10.5)
[2018-05-08] MEDS: MORPHINE SULFATE SR 15 MG TABLET PO SCH ×2 (05:55→18:04)
[2018-05-08 06:18] LABS: ALANINE AMINOTRANSFERASE 14 U/L (21-72); ALBUMIN 3.5 g/dL (3.5-5.0); ALKALINE PHOSPHATASE 97 U/L (38-126); ASPARTATE AMINO TRANSFERASE 30 U/L (17-59); BILIRUBIN,DIRECT 0.5 mg/dL (0.0-0.4); BILIRUBIN,TOTAL 0.5 mg/dL (0.2-1.3); BLOOD UREA NITROGEN 71 mg/dL (7-20); CALCIUM 9.3 mg/dL (8.4-10.2); CHLORIDE 92 mmol/L (98-107); GLUCOSE 90 mg/dL (75-110); POTASSIUM 4.2 mmol/L (3.6-5.0); SODIUM 145.9 mmol/L (137-145); TOTAL PROTEIN 7.3 g/dL (6.3-8.2)
[2018-05-08 06:41] LABS: ANION GAP 13 (5-19)
[2018-05-08 06:42] LABS: CARBON DIOXIDE 41 mmol/L (22-30)
[2018-05-08] MEDS: ALBUTEROL SULFATE 0.083% NEB 2.5 MG/3 ML AMPUL NEB PRN ×2 (08:15→19:47)
[2018-05-08] MEDS: BUDESONIDE NEB 0.5 MG/2 ML AMPUL NEB SCH ×2 (08:15→19:47)
[2018-05-08] MEDS: FUROSEMIDE 40 MG TABLET PO SCH (09:42)
[2018-05-08] MEDS: SERTRALINE HCL 50 MG TABLET PO SCH (09:44)
[2018-05-08] MEDS: POTASSIUM CHLORIDE 10 MEQ CAPSULE.ER PO SCH ×3 (09:44→18:04)
[2018-05-08] MEDS: APIXABAN 5 MG TABLET PO SCH ×2 (09:44→18:04)
[2018-05-08] MEDS: DOCUSATE SODIUM 100 MG CAPSULE PO SCH ×2 (09:44→18:04)
[2018-05-08] MEDS: TIOTROPIUM BROMIDE DPI 5 CAP/KIT (18 MCG/CAP) IH SCH (09:45)
[2018-05-08] MEDS: ASPIRIN 81 MG TABLET, CHEWABLE PO SCH (09:45)
[2018-05-08] MEDS: FLUTICASONE/SALMETEROL DISKUS 250-50 MCG/DOSE IH SCH ×2 (09:45→22:09)
--- NOTE | 2018-05-08 15:44 | PDOC PROGRESS REPORT ---
Subjective Progress Note for:: 05/08/18 - seen on rounds this morning Subjective:: states he feels good today. Reason For Visit: ACUTE ON CHRONIC RESP FAILURE, CAD, CELLULITIS Physical Exam Vital Signs: Temp Pulse Resp BP Pulse Ox 98.0 F 58 L 20 138/95 H 100 05/08/18 11:31 05/08/18 11:31 05/08/18 11:31 05/08/18 11:31 05/08/18 11:59 Pulse Oximeter Continuous Start: 04/27/18 14: 06 Freq: RTQ4 Status: Active Document 05/08/18 11:59 LDA (Rec: 05/08/18 12:00 LDA [email or web address]) Pulse Oximetry Assessment Oxygen Saturation (92-100) 100 Oxygen Flow Rate (L/min) 3 Oxygen Delivery Method Nasal Cannula Fraction of Inspired Oxygen (FIO2) 32 Equipment Usage Equipment in Use Continuous SpO2 Machine # n-5 Intake & Output 05/07/18 05/08/18 05/09/18 06:59 06:59 06:59 Intake Total 957 1559 Output Total 2450 2300 Balance -1493 -741 Weight 281 lb 1.43 oz General appearance: PRESENT: no acute distress Head exam: PRESENT: atraumatic, normocephalic Eye exam: PRESENT: EOMI, PERRLA. ABSENT: scleral icterus Ear exam: PRESENT: normal external ear exam Mouth exam: PRESENT: tongue midline Neck exam: ABSENT: tracheal deviation Respiratory exam: PRESENT: decreased breath sounds - bilaterally - mostly at the bases with expiratory wheezing, symmetrical, wheezes Cardiovascular exam: PRESENT: +S1, +S2 Pulses: PRESENT: +1 pedal pulses bilateral GI/Abdominal exam: PRESENT: normal bowel sounds, soft. ABSENT: tenderness Extremities exam: PRESENT: other - bilateraly LE edema- 1-2+- mostly pedal Musculoskeletal exam: PRESENT: other - left LE chun wrapped with jensen due to skin ulcer Neurological exam: PRESENT: alert, awake, oriented to person, oriented to place , oriented to time, oriented to situation, CN II-XII grossly intact Skin exam: PRESENT: erythema - bilateral LE erythema, warm Results Laboratory Results: 05/08/18 04:17 05/08/18 04:17 05/08/18 05/08/18 04:17 04:17 WBC 4.1 RBC 3.19 L Hgb 8.5 L Hct 26.6 L MCV 84 MCH 26.7 L MCHC 32.0 RDW 18.5 H Plt Count 147 L Sodium 145.9 H Potassium 4.2 Chloride 92 L Carbon Dioxide 41 H* Anion Gap 13 BUN 71 H Creatinine 2.08 H Est GFR ( Amer) 38 L Est GFR (Non-Af Amer) 31 L Glucose 90 Calcium 9.3 Magnesium 2.5 H Total Bilirubin 0.5 AST 30 ALT 14 L Alkaline Phosphatase 97 Total Protein 7.3 Albumin 3.5 04/19/18 04/20/18 04/20/18 22:07 03:52 10:12 Troponin I 0.019 0.026 0.027 NT-Pro-B Natriuret Pep 3510 H Impressions: Chest X-Ray 04/28/18 00:00 IMPRESSION: Worsening pulmonary edema and/or superimposed pneumonia left lower lobe. Assessment & Plan - Diagnosis (1) Acute on chronic combined systolic and diastolic CHF (congestive heart failure) Is this a current diagnosis for this admission?: Yes (2) Acute and chronic respiratory failure Qualifiers: Respiratory failure complication: hypoxia and hypercapnia Qualified Code(s) : J96.21 - Acute and chronic respiratory failure with hypoxia; J96.22 - Acute and chronic respiratory failure with hypercapnia; J96.22 - Acute and chronic respiratory failure with hypercapnia; J96.22 - Acute and chronic respiratory failure with hypercapnia Is this a current diagnosis for this admission?: Yes (4) Acute respiratory failure with hypoxia and hypercarbia Is this a current diagnosis for this admission?: Yes (5) CHF exacerbation Qualifiers: Heart failure type: combined systolic and diastolic Qualified Code(s): I50.43 - Acute on chronic combined systolic (congestive) and diastolic ( congestive) heart failure Is this a current diagnosis for this admission?: Yes (6) CKD (chronic kidney disease) stage 3, GFR 30-59 ml/min Is this a current diagnosis for this admission?: Yes (7) Chronic anticoagulation Is this a current diagnosis for this admission?: Yes (8) Obesity (BMI 30-39.9) Is this a current diagnosis for this admission?: Yes (9) Obstructive sleep apnea Is this a current diagnosis for this admission?: Yes (10) Stasis ulcer of left lower extremity Is this a current diagnosis for this admission?: Yes (11) Acute on chronic anemia Is this a current diagnosis for this admission?: Yes - Time Time Spent with patient: 15-24 minutes Within: within 48 hours Disposition: Cm is now trying for STR in [place] - Plan Summary Plan Summary: acute exacerbation of CHF- improving- currently on Lasix 60mg daily- ECHO completed- shows systolic dysfunction with EF 35%- likely he has combined systolic/diastolic HF. he was on lasix gtt prior to PO transition. continue to diurese him. Cardiology has been consulted and is following- appreciate recommendations and consult. I spoke with Dr Still today- he has cleared patient for discharge. Cellulitis- on doxy for abdominal wall cellulitis- unclear cause of the cellulitis- he's been on it since 04/25/18- will d/c it today - he does have a left LE wound- stasis ulcer- c/w local wound care. Acute on chronic resp failure with hypoxia and hypercapnia- back to baseline 3L O2 that he's at home- c/w nebulizers and inhalers as scheduled. his respiratory failure is multifactorial- COPD, CHF and likely pickwickian syndrome. i have also spoken with Dr Gonzales again today about this care- Dr Gonzales was kind to see him today- Dr Gonzales has cleared him for discharge today. he does recommend BIPAP or Trilogy for SUNNY upon discharge. SUNNY- c/w Bipap/CPAP at night. discussed about weight loss- he's aware Acute on chronic anemia- stable- s/p 1u pRBC on 05/06/18- given all his cardiac history- he would benefit from Hb >8. he has already received 2u earlier during this admission. likely his acute anemia is 2/2 CKD and is anemia of chronic disease. monitor levels for now- i do not feel he has an acute bleed at this time. i had a long discussion with him about home vs STR- son was in the room- his son also wants him to go to STR also. patient has been declining STR all this time. after much consideration- patient has agreed to go to STR if it is in [place]. CM is aware and working on placement
--- NOTE | 2018-05-08 19:41 | PDOC PROGRESS REPORT ---
Subjective Progress Note for:: 05/08/18 Subjective:: Patient also being evaluated by c d area supervisor. Patient seems to be doing better with gradual improvement. Pt is denying any chest arm or neck discomfort. Patient denying any PND, orthopnea. Patient denied any sustained palpitations, dizziness, syncope, near syncope. Patient denying any fever chills. Patient denying any other significant discomfort. Patient is maintaining ventricular paced rhythm. Underlying atrial rhythm difficult to assess. Review of systems: Rest review of systems negative. Medications: Medications have been reviewed. Reason For Visit: ACUTE ON CHRONIC RESP FAILURE, CAD, CELLULITIS Physical Exam Vital Signs: Temp Pulse Resp BP Pulse Ox 98.2 F 117 H 21 H 101/47 L 91 L 05/08/18 15:34 05/08/18 15:34 05/08/18 15:34 05/08/18 15:34 05/08/18 15:34 Pulse Oximeter Continuous Start: 04/27/18 14: 06 Freq: RTQ4 Status: Active Document 05/08/18 15:14 LDA (Rec: 05/08/18 15:16 LDA [email or web address]) Pulse Oximetry Assessment Oxygen Saturation (92-100) 92 Oxygen Delivery Method Bi-pap Fraction of Inspired Oxygen (FIO2) 25 Equipment Usage Equipment in Use Continuous SpO2 Machine # n-5 Intake & Output 05/07/18 05/08/18 05/09/18 06:59 06:59 06:59 Intake Total 957 1559 975 Output Total 2450 2300 1300 Balance -1493 -741 -325 Weight 127.5 kg Exam: GENERAL: well-nourished and in no acute distress. Alert and oriented x3 HEAD: Atraumatic, normocephalic. EYES: AMEENA, sclera anicteric, conjunctiva are normal. ENT: Moist mucous membranes. No oral ulcerations or bleeding gums noted. No obvious ear, nose or throat abnormalities noted. NECK: supple without lymphadenopathy. Trachea is central. No cervical or axillary lymphadenopathy noted. Carotids are 2+, JVD 8-10 cm. LUNGS: Mild right basal dullness noted on percussion. Few bibasilar crackles noted. CHEST: Palpation of the chest wall shows no significant chest wall tenderness. HEART: Manly GALLERY DIRECTOR, No PSH, 1/6 BARBI aortic area, 1/6 richards systolic murmur mitral area, no rubs, no gallops. ABDOMEN: Soft, no significant tenderness appreciated, normoactive bowel sounds. No guarding, no rebound. No rigidity noted . No masses appreciated. EXTREMITIES: Pedal pulses are 1-2+, no calf tenderness noted. No clubbing or cyanosis. Chronic 2+ pedal edema noted, with some lymphedema. NEUROLOGICAL: Focused neurological exam showed no significant neurologic deficit. Normal speech, no focal weakness appreciated. PSYCH: Normal mood, normal affect. Judgment and insight within normal limits. SKIN: No significant ecchymosis, skin is noted to be warm. A dressed wound noted lateral side of the left leg. MUSCULOSKELETAL EXAM: No significant acute joint swelling noted. Results Laboratory Results: 05/08/18 04:17 05/08/18 04:17 05/08/18 05/08/18 04:17 04:17 WBC 4.1 RBC 3.19 L Hgb 8.5 L Hct 26.6 L MCV 84 MCH 26.7 L MCHC 32.0 RDW 18.5 H Plt Count 147 L Sodium 145.9 H Potassium 4.2 Chloride 92 L Carbon Dioxide 41 H* Anion Gap 13 BUN 71 H Creatinine 2.08 H Est GFR ( Amer) 38 L Est GFR (Non-Af Amer) 31 L Glucose 90 Calcium 9.3 Magnesium 2.5 H Total Bilirubin 0.5 AST 30 ALT 14 L Alkaline Phosphatase 97 Total Protein 7.3 Albumin 3.5 04/19/18 04/20/18 04/20/18 22:07 03:52 10:12 Troponin I 0.019 0.026 0.027 NT-Pro-B Natriuret Pep 3510 H EKG Comments: Shows ventricular paced rhythm, underlying atrial rhythm is A. fib. Impressions: Chest X-Ray 04/28/18 00:00 IMPRESSION: Worsening pulmonary edema and/or superimposed pneumonia left lower lobe. Assessment & Plan - Diagnosis (1) CHF exacerbation Qualifiers: Heart failure type: combined systolic and diastolic Qualified Code(s): I50.43 - Acute on chronic combined systolic (congestive) and diastolic ( congestive) heart failure Is this a current diagnosis for this admission?: Yes (2) Acute and chronic respiratory failure Qualifiers: Respiratory failure complication: hypoxia and hypercapnia Qualified Code(s) : J96.21 - Acute and chronic respiratory failure with hypoxia; J96.22 - Acute and chronic respiratory failure with hypercapnia; J96.22 - Acute and chronic respiratory failure with hypercapnia; J96.22 - Acute and chronic respiratory failure with hypercapnia Is this a current diagnosis for this admission?: Yes (3) Anemia Qualifiers: Anemia type: due to chronic kidney disease Chronic kidney disease stage: stage 3 (moderate) Qualified Code(s): N18.3 - Chronic kidney disease, stage 3 (moderate); D63.1 - Anemia in chronic kidney disease; D63.1 - Anemia in chronic kidney disease Is this a current diagnosis for this admission?: Yes (4) Atrial fibrillation Qualifiers: Atrial fibrillation type: paroxysmal Qualified Code(s): I48.0 - Paroxysmal atrial fibrillation Is this a current diagnosis for this admission?: Yes (5) COPD (chronic obstructive pulmonary disease) Qualifiers: COPD type: unspecified COPD Qualified Code(s): J44.9 - Chronic obstructive pulmonary disease, unspecified Is this a current diagnosis for this admission?: Yes (6) Obesity hypoventilation syndrome Is this a current diagnosis for this admission?: Yes (7) Obstructive sleep apnea Is this a current diagnosis for this admission?: Yes - Notes Notes: Patient noted to be sitting at bedside chair. He is looking comfortable. Patient seems to be in a stable medical regimen. Further changes can be instituted as needed with close cardiology follow-up as an outpatient. Agree with involving c d area supervisor. Congestive heart failure: This is chronic congestive heart failure with acute exacerbation on presentation due to combined systolic and diastolic dysfunction along with significant contribution from right heart failure. At this point continue with diuretic therapy. Patient seems difficult to tolerate beta- tam. May consider adding may consider low-dose beta-tam therapy, KELSEY inhibitor/ARB/entresto therapy as tolerated by the blood pressure. Patient has anemia. Chronic leg edema: Could be partly due to venous insufficiency. However could well be from CHF. The pleural effusion may take a long time to resolve and get reabsorbed. Acute on chronic respiratory failure: Related to COPD, obesity hypoventilation syndrome, sleep apnea syndrome. This is currently being adequately treated. Anemia: Recommend maintaining hemoglobin at least above 8 but optimal above 9 g % in CHF patient. Patient did receive some blood transfusion. Atrial fibrillation: Paroxysmal. Patient is a candidate for chronic anticoagulation with newer anticoagulant. Patient noted to be on Eliquis therapy which can be continued. Currently no active ongoing bleed noted. COPD: Continue current management plans. Obesity hypoventilation syndrome: Continue with nightly bilevel/CPAP therapy as you have been doing. Patient was evaluated by c d area supervisor. Obstructive sleep apnea: Continue current therapy with positive pressure noninvasive ventilation. Obesity: Patient will benefit from gradual weight loss. Patient understands this. General debility: Patient is very debilitated. Patient will benefit from physical therapy, rehab therapy etc. Patient has seen me before in my office therefore can follow-up with me. - Time Time with patient: 15-25 minutes - CODE STATUS was discussed, patient remains full code. Surrogate decision-maker unchanged. Multiple medical problems were addressed. More than 50% of the time spent coordinating care, discussing management plans with involved caregivers. Management plans discussed with involved personnels. Medical decision making was of moderate to high complexity , patient's has multiple comorbidities. Medications reviewed and adjusted accordingly: Yes
--- NOTE | 2018-05-08 20:09 | EKG REPORT ---
SEVERITY:- ABNORMAL ECG - VENTRICULAR-PACED RHYTHM : Confirmed by: Farzana Still 08-May-2018 20:08:55
[2018-05-08] MEDS: ATORVASTATIN CALCIUM 40 MG TABLET PO SCH (22:10)
[2018-05-09] MEDS: MORPHINE SULFATE 10 MG/5 ML ORAL SOLUTION UDCUP PO PRN ×2 (01:50→13:45)
[2018-05-09 05:03] LABS: ABSOLUTE EOSINOPHILS # (AUTO) 0.2 10^3/uL (0.0-0.6); ABSOLUTE LYMPHOCYTES (AUTO) 1.1 10^3/uL (0.5-4.7); ABSOLUTE MONOCYTES (AUTO) 0.4 10^3/uL (0.1-1.4); ABSOLUTE NEUT (AUTO) 2.4 10^3/uL (1.7-8.2); BASOPHILS % (AUTO) 0.7 % (0-2); EOSINOPHILS % (AUTO) 4.2 % (0-6); HEMATOCRIT 24.2 % (37.9-51.0); LYMPHOCYTES % (AUTO) 26.3 % (13-45); MEAN CORPUSCULAR HEMOGLOBIN 27.2 pg (27.0-33.4); MEAN CORPUSCULAR VOLUME 83 fl (80-97); MONOCYTES % (AUTO) 10.4 % (3-13); PLATELET COUNT 149 10^3/uL (150-450); RED BLOOD COUNT 2.93 10^6/uL (4.35-5.55); RED CELL DISTRIBUTION WIDTH 18.5 % (11.5-14.0); SEGMENTED NEUTROPHILS % (AUTO) 58.4 % (42-78); TOTAL CELLS COUNTED % (AUTO) 100 %; WHITE BLOOD COUNT 4.2 10^3/uL (4.0-10.5)
[2018-05-09] MEDS: MORPHINE SULFATE SR 15 MG TABLET PO SCH (05:35)
[2018-05-09] MEDS: BUDESONIDE NEB 0.5 MG/2 ML AMPUL NEB SCH (07:51)
[2018-05-09] MEDS: TIOTROPIUM BROMIDE DPI 5 CAP/KIT (18 MCG/CAP) IH SCH (09:37)
[2018-05-09] MEDS: FUROSEMIDE 40 MG TABLET PO SCH (09:37)
[2018-05-09] MEDS: POTASSIUM CHLORIDE 10 MEQ CAPSULE.ER PO SCH ×2 (09:37→13:36)
[2018-05-09] MEDS: SERTRALINE HCL 50 MG TABLET PO SCH (09:38)
[2018-05-09] MEDS: ASPIRIN 81 MG TABLET, CHEWABLE PO SCH (09:38)
[2018-05-09] MEDS: DOCUSATE SODIUM 100 MG CAPSULE PO SCH (09:38)
[2018-05-09] MEDS: APIXABAN 5 MG TABLET PO SCH (09:39)
[2018-05-09] MEDS: FLUTICASONE/SALMETEROL DISKUS 250-50 MCG/DOSE IH SCH (09:39)
[2018-05-09 12:42] VITALS: BP 118/56
--- NOTE | 2018-05-09 13:57 | PDOC TRANSFER SUMMARY ---
General - Admit/Disc Date/PCP Admission Date/Primary Care Provider: 04/19/18 18:23 MAURICE ORTIZ, Discharge Date: 05/09/18 - seen on rounds this morning - Discharge Diagnosis (1) Acute on chronic combined systolic and diastolic CHF (congestive heart failure) Is this a current diagnosis for this admission?: Yes (2) Acute and chronic respiratory failure Is this a current diagnosis for this admission?: Yes (4) Acute respiratory failure with hypoxia and hypercarbia Is this a current diagnosis for this admission?: Yes (5) CHF exacerbation Is this a current diagnosis for this admission?: Yes (6) CKD (chronic kidney disease) stage 3, GFR 30-59 ml/min Is this a current diagnosis for this admission?: Yes (7) Chronic anticoagulation Is this a current diagnosis for this admission?: Yes (8) Obesity (BMI 30-39.9) Is this a current diagnosis for this admission?: Yes (9) Obstructive sleep apnea Is this a current diagnosis for this admission?: Yes (10) Stasis ulcer of left lower extremity Is this a current diagnosis for this admission?: Yes (11) Acute on chronic anemia Is this a current diagnosis for this admission?: Yes - Additional Information Resuscitation Status: Do Not Resuscitate - Per discussion with the patient Discharge Diet: Cardiac, Diabetic Discharge Activity: Activity As Tolerated, Balance Activity w/Rest, Weigh Daily Prescriptions: Carvedilol [Coreg 3.125 mg Tablet] 3.125 mg PO Q12 #60 tablet Lisinopril [Prinivil 2.5 mg Tablet] 2.5 mg PO DAILY #30 tablet Morphine Sulfate [Ms-Contin Sr 15 mg Tablet] 15 mg PO Q12A #30 tablet.sa Oxycodone HCl/Acetaminophen [Endocet 10-325 mg Tablet] 1 tab PO Q6HP PRN #30 tablet PRN Reason: For Pain Home Medications: Apixaban [Eliquis] 5 mg PO Q12 02/17/18 Atorvastatin Calcium [Lipitor 40 mg Tablet] 40 mg PO DAILY 02/17/18 Sertraline HCl [Zoloft 50 mg Tablet] 50 mg PO DAILY 02/17/18 Fluticasone/Salmeterol [Advair 250-50 Diskus 28 dose] 1 inh IH Q12H 03/06/18 Multivitamin [Multivitamins] 1 each PO DAILY 03/06/18 Acetaminophen [Tylenol 325 mg Tablet] 650 mg PO Q4HP PRN tablet 05/09/18 Albuterol Sulfate [Ventolin 0.083% Neb 2.5 mg/3 mL Ampul] 2.5 mg NEB RTQ3HP PRN vial.neb 05/09/18 Apixaban [Eliquis 5 mg Tablet] 5 mg PO BID tablet 05/09/18 Aspirin [Aspirin 81 mg Chewable Tablet] 81 mg PO DAILY tab.chew 05/09/18 Atorvastatin Calcium [Lipitor 40 mg Tablet] 40 mg PO QHS tablet 05/09/18 Carvedilol [Coreg 3.125 mg Tablet] 3.125 mg PO Q12 #60 tablet 05/09/18 Docusate Sodium [Colace 100 mg Capsule] 100 mg PO BID capsule 05/09/18 Furosemide [Lasix 40 mg Tablet] 60 mg PO DAILY tablet 05/09/18 Lisinopril [Prinivil 2.5 mg Tablet] 2.5 mg PO DAILY #30 tablet 05/09/18 Morphine Sulfate [Ms-Contin Sr 15 mg Tablet] 15 mg PO Q12A #30 tablet.sa Oxycodone HCl/Acetaminophen [Endocet 10-325 mg Tablet] 1 tab PO Q6HP PRN #30 tablet 05/09/18 Potassium Chloride [Klor-Con 10 Meq Capsule ER] 20 meq PO PC capsule.er Sertraline HCl [Zoloft 50 mg Tablet] 50 mg PO DAILY tablet 05/09/18 Tiotropium [place] [Spiriva Handihaler 5 Cap/Kit (18 Mcg/Cap)] 1 cap IH DAILY kit 05/09/18 History of Present Illness Admission Date/PCP: 04/19/18 18:23 MAURICE ORTIZ DO History of Present Illness: DANIEL OLIVA is a 72 year old male who was admitted for respiratory failure 2/ 2 COPD, CHF and SUNNY. please see initial H&P for full assessment and plan Hospital Course Hospital Course: patient has had a length course here in the hospital. he has been admitted to the hospital on multiple occasion in the past for similar reasons. 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 he is doing much better at this time with his breathing and edema. yesterday he agreed to go to [facility] and it was arranged at [facility] by CM- i appreciate their assistance with this. his son and patient is in agreement with this plan acute exacerbation of combined diastolic and systolic HF- currently on Lasix 60mg daily- ECHO completed- shows systolic dysfunction with EF 35%- with grade 2/4 diastolic HF. he was on lasix gtt prior to PO transition. his edema has improved significantly. Cardiology had been consulted. appreciate recommendations and consult. I spoke with Dr Still today- he states in his note that unfortunately patient does not seem to tolerate beta blockers as well. currently his HR is in the 50s. I have spoke with him again this morning - he recommends a very small dose of Coreg and Lisinopril on discharge. Dr Still recommends Coreg 3.125mg BID and lisinopril 2.5mg daily. Dr Still also believes that his failure is related to his SUNNY and patient needs to weight loss - patient has been counseled on this matter. Cellulitis- he completed a course of doxy for abdominal wall cellulitis- unclear cause of the cellulitis- he had been on it since 04/25/18. he does have a left LE wound- stasis ulcer- c/w local wound care. Acute on chronic resp failure with hypoxia and hypercapnia- back to baseline 3L O2 that he's at home- c/w nebulizers and inhalers daily. his respiratory failure is multifactorial- COPD, CHF and likely pickwickian syndrome. i have also spoken with Dr Gonzales today about his care- Dr Gonzales was kind to see him today- Dr Gonzales has cleared him for discharge today. he does recommend BIPAP with settings: FiO2 30% IPAP 16 EPAP 6 I-time 0.9 titrate to have Tidal volume goal of 500 c/w advair, spiriva and PRN nebulizers with duoneb/albuterol SUNNY- c/w Bipap at night. discussed about weight loss- he's aware. Dr Gonzales also recommends Trilogy at discharge. Acute on chronic anemia- stable- s/p 3u pRBCs during this admission. likely his acute anemia is 2/2 CKD and is anemia of chronic disease. his baseline is probably 8-9. monitor levels with repeat CBC in 1-2 days. transfused as needed. due to his heart- he would benefit from Hb 8 or greater. Physical Exam Vital Signs: Temp Pulse Resp BP Pulse Ox 98.6 F 60 20 118/56 L 98 05/09/18 12:00 05/09/18 12:00 05/09/18 12:00 05/09/18 12:00 05/09/18 12:21 Pulse Oximeter Continuous Start: 04/27/18 14: 06 Freq: RTQ4 Status: Active Document 05/09/18 12:21 HCR (Rec: 05/09/18 12:52 HCR [id number]) Pulse Oximetry Assessment Oxygen Saturation (92-100) 98 Oxygen Flow Rate (L/min) 3 Oxygen Delivery Method Nasal Cannula Equipment Usage Equipment Standby Continuous SpO2 Machine # 5 Intake & Output 05/08/18 05/09/18 05/10/18 06:59 06:59 06:59 Intake Total 1559 975 Output Total 2300 1900 Balance -741 -925 Weight 276 lb 14.409 oz General appearance: PRESENT: no acute distress, obese Head exam: PRESENT: atraumatic, normocephalic Eye exam: PRESENT: EOMI, PERRLA. ABSENT: scleral icterus Ear exam: PRESENT: normal external ear exam Mouth exam: PRESENT: tongue midline Teeth exam: PRESENT: poor dentation Neck exam: ABSENT: tracheal deviation Respiratory exam: PRESENT: decreased breath sounds - bilaterally- mostly at the bases, symmetrical, wheezes - expiratory wheezing bilaterally Cardiovascular exam: PRESENT: +S1, +S2 Pulses: PRESENT: +1 pedal pulses bilateral GI/Abdominal exam: PRESENT: normal bowel sounds, soft. ABSENT: tenderness Extremities exam: PRESENT: other - bilateral LE edema 1-2+, mostly pedal and some on the distal chun. ABSENT: calf tenderness Neurological exam: PRESENT: alert, awake, oriented to person, oriented to place , oriented to time, oriented to situation, CN II-XII grossly intact Skin exam: PRESENT: dry, erythema - bilateral lower extremity, skin tears - left LE, warm Results Laboratory Results: 05/09/18 04:18 05/08/18 04:17 05/09/18 04:18 WBC 4.2 RBC 2.93 L Hgb 8.0 L Hct 24.2 L MCV 83 MCH 27.2 MCHC 33.0 RDW 18.5 H Plt Count 149 L Seg Neutrophils % 58.4 Lymphocytes % 26.3 Monocytes % 10.4 Eosinophils % 4.2 Basophils % 0.7 Absolute Neutrophils 2.4 Absolute Lymphocytes 1.1 Absolute Monocytes 0.4 Absolute Eosinophils 0.2 Absolute Basophils 0.0 04/19/18 04/20/18 04/20/18 22:07 03:52 10:12 Troponin I 0.019 0.026 0.027 NT-Pro-B Natriuret Pep 3510 H Impressions: Chest X-Ray 04/28/18 00:00 IMPRESSION: Worsening pulmonary edema and/or superimposed pneumonia left lower lobe. Transfer Plan - Disposition Transfer Plan: [facility] Time Spent with Patient Time spent with patient: Greater than 30 Minutes Qualifiers - * PATIENT BEING DISCHARGED WITH ANY OF THE FOLLOWING DIAGNOSIS: No Plan Time Spent: Greater than 30 Minutes
--- NOTE | 2018-05-10 18:27 | PDOC PROGRESS REPORT ---
Subjective Progress Note for:: 05/09/18 Subjective:: Patient also being evaluated by foot specialist. Patient seems to be doing better with gradual improvement. Pt is denying any chest arm or neck discomfort. Patient denying any PND, orthopnea. Patient denied any sustained palpitations, dizziness, syncope, near syncope. Patient denying any fever chills. Patient denying any other significant discomfort. Patient is maintaining ventricular paced rhythm. Underlying atrial rhythm difficult to assess. Review of systems: Rest review of systems negative. Medications: Medications have been reviewed. Reason For Visit: ACUTE ON CHRONIC RESP FAILURE, CAD, CELLULITIS Physical Exam Vital Signs: Temp Pulse Resp BP Pulse Ox 98.6 F 60 16 118/56 L 100 05/09/18 12:00 05/09/18 14:00 05/09/18 16:15 05/09/18 12:00 05/09/18 16:15 Pulse Oximeter Continuous Start: 04/27/18 14: 06 Freq: RTQ4 Status: Discharge Document 05/09/18 18:08 HCR (Rec: 05/09/18 18:09 HCR [id number]) Pulse Oximetry Assessment Equipment Usage Equipment Discontinued Continuous SpO2 Machine # 5 Intake & Output 05/08/18 05/09/18 05/10/18 06:59 06:59 06:59 Intake Total 1559 975 Output Total 2300 1900 Balance -741 -925 Weight 125.6 kg Exam: GENERAL: well-nourished and in no acute distress. Alert and oriented x3 HEAD: Atraumatic, normocephalic. EYES: AMEENA, sclera anicteric, conjunctiva are normal. ENT: Moist mucous membranes. No oral ulcerations or bleeding gums noted. No obvious ear, nose or throat abnormalities noted. NECK: supple without lymphadenopathy. Trachea is central. No cervical or axillary lymphadenopathy noted. Carotids are 2+, JVD WNL LUNGS: Few bibasilar crackles and mild right basal dullness noted. CHEST: Palpation of the chest wall shows no significant chest wall tenderness. 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 ABDOMEN: Soft, no significant tenderness appreciated, normoactive bowel sounds. No guarding, no rebound. No rigidity noted . No masses appreciated. EXTREMITIES: Pedal pulses are 1-2+, no calf tenderness noted. No clubbing or cyanosis. 2+ pedal edema noted NEUROLOGICAL: Focused neurological exam showed no significant neurologic deficit. Normal speech, no focal weakness appreciated. PSYCH: Normal mood, normal affect. Judgment and insight within normal limits. SKIN: No significant ecchymosis, skin is noted to be warm. A wound with dressing on noted lateral aspect of the left leg. MUSCULOSKELETAL EXAM: No significant acute joint swelling noted. Results Laboratory Results: 05/09/18 04:18 05/08/18 04:17 05/09/18 04:18 WBC 4.2 RBC 2.93 L Hgb 8.0 L Hct 24.2 L MCV 83 MCH 27.2 MCHC 33.0 RDW 18.5 H Plt Count 149 L Seg Neutrophils % 58.4 Lymphocytes % 26.3 Monocytes % 10.4 Eosinophils % 4.2 Basophils % 0.7 Absolute Neutrophils 2.4 Absolute Lymphocytes 1.1 Absolute Monocytes 0.4 Absolute Eosinophils 0.2 Absolute Basophils 0.0 04/19/18 04/20/18 04/20/18 22:07 03:52 10:12 Troponin I 0.019 0.026 0.027 NT-Pro-B Natriuret Pep 3510 H EKG Comments: Telemetry shows ventricular paced rhythm. Underlying atrial rhythm not clear but seems to be atrial fibrillation. No significant tachycardia or bradycardia noted. Impressions: Chest X-Ray 04/28/18 00:00 IMPRESSION: Worsening pulmonary edema and/or superimposed pneumonia left lower lobe. Assessment & Plan - Diagnosis (1) CHF exacerbation Qualifiers: Heart failure type: combined systolic and diastolic Qualified Code(s): I50.43 - Acute on chronic combined systolic (congestive) and diastolic ( congestive) heart failure Is this a current diagnosis for this admission?: Yes (2) Acute and chronic respiratory failure Qualifiers: Respiratory failure complication: hypoxia and hypercapnia Qualified Code(s) : J96.21 - Acute and chronic respiratory failure with hypoxia; J96.22 - Acute and chronic respiratory failure with hypercapnia; J96.22 - Acute and chronic respiratory failure with hypercapnia; J96.22 - Acute and chronic respiratory failure with hypercapnia Is this a current diagnosis for this admission?: Yes (3) Anemia Qualifiers: Anemia type: due to chronic kidney disease Chronic kidney disease stage: stage 3 (moderate) Qualified Code(s): N18.3 - Chronic kidney disease, stage 3 (moderate); D63.1 - Anemia in chronic kidney disease; D63.1 - Anemia in chronic kidney disease Is this a current diagnosis for this admission?: Yes (4) Atrial fibrillation Qualifiers: Atrial fibrillation type: paroxysmal Qualified Code(s): I48.0 - Paroxysmal atrial fibrillation Is this a current diagnosis for this admission?: Yes (5) COPD (chronic obstructive pulmonary disease) Qualifiers: COPD type: unspecified COPD Qualified Code(s): J44.9 - Chronic obstructive pulmonary disease, unspecified Is this a current diagnosis for this admission?: Yes (6) Obesity hypoventilation syndrome Is this a current diagnosis for this admission?: Yes (7) Obstructive sleep apnea Is this a current diagnosis for this admission?: Yes - Notes Notes: Patient felt to be not on optimal CHF therapy because of intermittent low blood pressure. We could try him on low-dose carvedilol at 3.125 mg p.o. every 12 and lisinopril 2.5 mg p.o. daily. Or we could even start Entresto. I feel that these adjustments could be made as an outpatient. Patient can follow with me in the office. - Time Time with patient: 15-25 minutes - Patient is being discharged home. He can follow-up with me as an outpatient. More than 50% of the time spent coordinating care, discussing management plans with involved caregivers. Management plans discussed with involved personnels. Medical decision making was of moderate to high complexity, patient's has multiple comorbidities. Medications reviewed and adjusted accordingly: Yes
== END 2018-05-09 17:07 | DRG 291 ==
LOC: ER 16:31 → EH 18:23 → 3W 21:20
PROVIDERS: ADMIT Internal Medicine; ATTEND Internal Medicine
PROC: 5A09357 Assistance with Respiratory Ventilation, Less than 24 Consecutive Hours, Continuous Positive Airway Pressure (ICD-10-PCS; principal; 2018-04-19)
DX: I13.0 Hypertensive heart and chronic kidney disease with heart failure and stage 1 through stage 4 chronic kidney disease, or unspecified chronic kidney disease (principal); I50.43 Acute on chronic combined systolic (congestive) and diastolic (congestive) heart failure; J96.21 Acute and chronic respiratory failure with hypoxia; J96.22 Acute and chronic respiratory failure with hypercapnia; L97.929 Non-pressure chronic ulcer of unspecified part of left lower leg with unspecified severity; L03.311 Cellulitis of abdominal wall; E66.2 Morbid (severe) obesity with alveolar hypoventilation; Z68.41 Body mass index [BMI] 40.0-44.9, adult; N18.3 Chronic kidney disease, stage 3 (moderate); J44.9 Chronic obstructive pulmonary disease, unspecified; I48.0 Paroxysmal atrial fibrillation; D63.1 Anemia in chronic kidney disease; I83.029 Varicose veins of left lower extremity with ulcer of unspecified site; Z66 Do not resuscitate; Z79.02 Long term (current) use of antithrombotics/antiplatelets; Z79.82 Long term (current) use of aspirin; Z79.899 Other long term (current) drug therapy
CPT/HCPCS: 36415; 36430; 36600; 71045; 80048; 80053; 80069; 80202; 81001; 82550; 82553; 82565; 82607; 82728; 82746; 82803; 82962; 83036; 83540; 83550; 83605; 83735; 83880; 84484; 85025; 85027; 85045; 85610; 85730; 86850; 86900; 86901; 86920; 87040; 93005; 93010; 93306; 94640; 94660; 94762; 94799; 96365; 96368; 96375; 99285; G8978-GP; G8979-GP; G8987-GO; G8988-GO; G8989-GO; J1940; J2543; J3370; J3490; J7050; J7060; J7620; P9016

== ENCOUNTER 2018-05-20 00:43 | Inpatient (IN) | payer MEDICARE, MEDICAID ==
[2018-05-20] MEDS ORDERED: NALOXONE HCL INJ/PF 0.4 MG/1 ML SDV ONE ×2 (01:05→04:13)
[2018-05-20] MEDS ORDERED: NALOXONE HCL INJ/PF 0.4 MG/1 ML SDV IV ONE (01:08)
--- NOTE | 2018-05-20 01:10 | ER Document Report ---
ED General - General Stated Complaint: ALTERED MENTAL STATUS Time Seen by Provider: 05/20/18 00:58 Cannot obtain history due to: Intoxicated, Altered mental status Notes: Patient is a 72-year-old male with a known history of obesity hypoventilation syndrome, CHF, COPD, hypertension, chronic narcotic dependence, presents by EMS with concerns of hypoxia in the setting of having received both MS Contin as well as Percocet at the same time at his facility called [facility]. Patient is unable to provide meaningful history at the time of assessment, appears acutely intoxicated on narcotics. Apparently does not normally require oxygen at baseline. Was recently hospitalized for acute on chronic hypoxic respiratory failure. TRAVEL OUTSIDE OF THE [place] IN LAST 30 DAYS: No - Related Data Allergies/Adverse Reactions: No Known Allergies Allergy (Verified 02/17/18 14:22) Past Medical History - General Information source: Emergency Med Personnel, [facility] Records Cannot obtain history due to: Altered mental status - Social History Smoking Status: Former Smoker Frequency of alcohol use: None Drug Abuse: None Lives with: Long Term Family History: CAD, COPD, Hypertension - Past Medical History Cardiac Medical History: Reports: Hx Atrial Fibrillation, Hx Congestive Heart Failure, Hx Coronary Artery Disease, Hx Heart Attack, Hx Hypercholesterolemia, Hx Hypertension, Hx Pulmonary Embolism, Hx Heart Murmur Pulmonary Medical History: Reports: Hx COPD Neurological Medical History: Denies: Hx Seizures Endocrine Medical History: Denies: Hx Diabetes Mellitus Type 2 - History of same , but only on medication for short time. Renal/ Medical History: Denies: Hx End Stage Renal Disease, Hx Peritoneal Dialysis GI Medical History: Denies: Hx Crohn's Disease, Hx Hepatitis, Hx Ulcerative Colitis Musculoskeletal Medical History: Reports Hx Arthritis Skin Medical History: Denies Hx Psoriasis Psychiatric Medical History: Reports: Hx Depression Traumatic Medical History: Denies: Hx Traumatic Brain Injury Infectious Medical History: Denies: Hx Hepatitis Past Surgical History: Reports: Hx Cardiac Catheterization, Hx Cardiac Surgery - Pacemaker-removed due to infection, Hx Coronary Artery Bypass Graft, Hx Coronary Stent, Hx Internal Defibrillator, Hx Pacemaker - Battery change out and then explantation., Hx Tonsillectomy - Immunizations Hx Diphtheria, Pertussis, Tetanus Vaccination: No - >5 YRS Hx Pneumococcal Vaccination: 03/27/11 Review of Systems - Review of Systems -: Yes ROS unobtainable due to patient's medical condition Physical Exam - Vital signs Interpretation: Hypoxic Notes: PHYSICAL EXAMINATION: GENERAL: Obese male, in no acute distress. Somewhat lethargic, appears intoxicated on opiates HEAD: Atraumatic, normocephalic. EYES: Pupils equal round and reactive to light, extraocular movements intact, sclera anicteric, conjunctiva are normal. ENT: nares patent, oropharynx clear without exudates. Moderate dry mucous membranes. NECK: Normal range of motion, supple without lymphadenopathy LUNGS: Diminished breath sounds at the bases bilaterally. No tachypnea. No wheezes rales or rhonchi. HEART: Regular rate and rhythm without murmurs ABDOMEN: Soft, nontender, normoactive bowel sounds. No guarding, no rebound. No masses appreciated. EXTREMITIES: Normal range of motion, 3+ pitting edema in the bilateral lower extremities that is equal and symmetric. No cyanosis. NEUROLOGICAL: No focal neurological deficits. Moves all extremities spontaneously and on command. PSYCH: Somewhat lethargic, altered. SKIN: Warm, Dry, normal turgor, no rashes or lesions noted. Course - Re-evaluation Re-evalutation: 05/20/18 01:09 Patient presents by EMS with concerns of hypoxia after receiving both MS Contin and Percocet at the same time at [facility]. He apparently does not require oxygen at baseline. They attempted to place nasal cannula and the patient would not keep it on. At time of arrival the patient is altered,, give me his son's name for his first name. Vitals effectively within normal limits although patient is requiring supplemental oxygen to maintain normal saturations which is not his baseline he does appear to have excessive narcotics on board. Will give naloxone 0.04 mg doses until the patient is more responsive. Will also obtain basic laboratories, chest x-ray and reassess. 05/20/18 01:22 Patient now knows his name, much more alert after receiving naloxone. Heart rate has increased slightly to 71 bpm. Maintaining appropriate saturations. Awaiting laboratories, chest x-ray, will continue to monitor. 05/20/18 02:16 Patient's mental status has improved significantly receiving Narcan although he does remain somewhat altered. Name and location at this time. The patient oxygen requirement does persist despite having reverse his narcotics. The patient chest x-ray does show bibasilar atelectatic changes as well as pulmonary edema. He does continue to try to remove his nasal cannula. His labs also do demonstrate a worsened BNP and worsening of his known chronic kidney disease. I have given furosemide 60 mg IV. I discussed with Dr. Thomas for hospitalization. He has agreed to admit the patient. - Laboratory Result Diagrams: 05/20/18 01:00 05/20/18 01:00 Laboratory results interpreted by me: 05/20/18 05/20/18 05/20/18 01:00 01:00 01:00 RBC 3.01 L Hgb 8.2 L Hct 25.4 L RDW 19.8 H Potassium 5.4 H Carbon Dioxide 32 H BUN 56 H Creatinine 2.42 H Est GFR ( Amer) 32 L Est GFR (Non-Af Amer) 26 L Glucose 112 H ALT 10 L NT-Pro-B Natriuret Pep 5860 H - Diagnostic Test Radiology reviewed: Image reviewed, Reports reviewed Radiology results interpreted by me: 05/20/18 02:21 Chest x-ray: Cardiomegaly, pulmonary edema, bibasilar atelectasis, possible left lower lobe pneumonia. - EKG Interpretation by Me Additional EKG results interpreted by me: 05/20/18 02:22 AV dual paced complexes, rate 62. Discharge - Discharge Clinical Impression: Combined systolic and diastolic cardiac dysfunction, Opiate dependence, continuous, Obesity hypoventilation syndrome ARF (acute renal failure) Qualifiers: Acute renal failure type: unspecified Qualified Code(s): N17.9 - Acute kidney failure, unspecified Acute on chronic respiratory failure Qualifiers: Respiratory failure complication: hypoxia Qualified Code(s): J96.21 - Acute and chronic respiratory failure with hypoxia CHF exacerbation Qualifiers: Heart failure type: unspecified Qualified Code(s): I50.9 - Heart failure, unspecified Condition: Fair Disposition: ADMITTED INPATIENT Admitting Provider: Hospitalist Unit Admitted: IMCU Referrals: MAURICE ORTIZ DO [Primary Care Provider] - Follow up as needed
[2018-05-20 01:15] LABS: ABSOLUTE EOSINOPHILS # (AUTO) 0.1 10^3/uL (0.0-0.6); ABSOLUTE LYMPHOCYTES (AUTO) 1.1 10^3/uL (0.5-4.7); ABSOLUTE MONOCYTES (AUTO) 0.5 10^3/uL (0.1-1.4); ABSOLUTE NEUT (AUTO) 3.6 10^3/uL (1.7-8.2); BASOPHILS % (AUTO) 0.7 % (0-2); EOSINOPHILS % (AUTO) 2.5 % (0-6); HEMATOCRIT 25.4 % (37.9-51.0); HEMOGLOBIN 8.2 g/dL (13.5-17.0); LYMPHOCYTES % (AUTO) 21.1 % (13-45); MEAN CORPUSCULAR HEMOGLOBIN 27.1 pg (27.0-33.4); MEAN CORPUSCULAR HGB CONC 32.1 g/dL (32.0-36.0); MEAN CORPUSCULAR VOLUME 84 fl (80-97); MONOCYTES % (AUTO) 8.6 % (3-13); PLATELET COUNT 237 10^3/uL (150-450); RED BLOOD COUNT 3.01 10^6/uL (4.35-5.55); RED CELL DISTRIBUTION WIDTH 19.8 % (11.5-14.0); SEGMENTED NEUTROPHILS % (AUTO) 67.1 % (42-78); TOTAL CELLS COUNTED % (AUTO) 100 %; WHITE BLOOD COUNT 5.3 10^3/uL (4.0-10.5)
[2018-05-20 01:30] LABS: ALANINE AMINOTRANSFERASE 10 U/L (21-72); ALBUMIN 3.7 g/dL (3.5-5.0); ALKALINE PHOSPHATASE 94 U/L (38-126); ANION GAP 11 (5-19); ASPARTATE AMINO TRANSFERASE 26 U/L (17-59); BILIRUBIN,DIRECT 0.4 mg/dL (0.0-0.4); BILIRUBIN,TOTAL 0.6 mg/dL (0.2-1.3); BLOOD UREA NITROGEN 56 mg/dL (7-20); CALCIUM 8.5 mg/dL (8.4-10.2); CARBON DIOXIDE 32 mmol/L (22-30); CHLORIDE 99 mmol/L (98-107); GLUCOSE 112 mg/dL (75-110); POTASSIUM 5.4 mmol/L (3.6-5.0); SODIUM 141.5 mmol/L (137-145); TOTAL PROTEIN 7.6 g/dL (6.3-8.2)
[2018-05-20 01:43] LABS: TROPONIN I 0.029 ng/mL
--- NOTE | 2018-05-20 01:49 | RADIOLOGY REPORT (SQ) ---
EXAM DESCRIPTION: XR CHEST 1 VIEW COMPLETED DATE/TME: 05/20/2018 01:08 CLINICAL HISTORY: 72 years, Male, hypoxia COMPARISON: X-ray chest 04/28/2018 NUMBER OF VIEWS: TECHNIQUE: LIMITATIONS: None. FINDINGS: There is cardiomegaly and congestive heart failure. There is increased opacity at the lung bases, left side more apparent than right, compatible with pleural effusion and/or atelectasis and/or infiltrate. There is evidence of prior chest surgery. There is a right-sided AICD. IMPRESSION: Cardiomegaly and CHF. Bibasilar pleural effusion and/or atelectasis and/or infiltrate, left side more apparent than right. 2011 [employer]- All Rights Reserved
[2018-05-20] MEDS ORDERED: FUROSEMIDE INJ/PF 40 MG/4 ML SDV IV ONE (01:59)
[2018-05-20] MEDS ORDERED: IRON SUCROSE COMPLEX INJ/PF 100 MG/5 ML SDV IV ONE ×3 (02:22→07:47)
[2018-05-20] MEDS ORDERED: GLUCAGON,HUMAN RECOMB 1 MG INJ IM PRN (02:25)
[2018-05-20] MEDS ORDERED: LACTULOSE SYRUP 20 GM/30 ML UDCUP PO ONE (02:25)
[2018-05-20] MEDS ORDERED: DEXTROSE 50%-WATER 25 GM/50 ML DISP.SYRIN IV PRN ×2 (02:25)
[2018-05-20] MEDS ORDERED: DEXTROSE 40% GEL 15 GM TUBE PO PRN ×2 (02:25)
[2018-05-20] MEDS ORDERED: MAG HYDROX/AL HYDROX/SIMETH SUSP 30 ML UDCUP PO PRN (02:25)
[2018-05-20] MEDS ORDERED: INSULIN LISPRO 100 UNIT/ML 3 ML VIAL SUBCUT PRN (02:25)
[2018-05-20] MEDS ORDERED: IRON SUCROSE COMPLEX 300 MG in NORMAL SALINE 250 ML IV ONE (02:30)
[2018-05-20] MEDS ORDERED: FLUTICASONE/SALMETEROL DISKUS 250-50 MCG/DOSE IH ONE ×2 (02:45→06:16)
[2018-05-20] MEDS ORDERED: NITROGLYCERIN 5 MG (0.2 MG/HR) PATCH.TD24 TD ONE (02:45)
[2018-05-20 03:19] LABS: APPEARANCE,URINE SLIGHTLY-CLOUDY; BILIRUBIN,URINE NEGATIVE (NEGATIVE); COLOR,URINE YELLOW; GLUCOSE, URINE NEGATIVE (NEGATIVE); KETONES,URINE NEGATIVE (NEGATIVE); LEUKOCYTE ESTERASE,URINE NEGATIVE (NEGATIVE); NITRITE,URINE NEGATIVE (NEGATIVE); PROTEIN,URINE NEGATIVE (NEGATIVE); URINE SPECIFIC GRAVITY 1.013; UROBILINOGEN,URINE NEGATIVE mg/dL (<2.0)
--- NOTE | 2018-05-20 05:24 | PDOC H&P ---
History of Present Illness Admission Date/PCP: 05/20/18 02:37 MAURICE ORTIZ DO Patient complains of: Shortness of breath History of Present Illness: DANIEL OLIVA is a 72 year old male with a past medical history of morbid obesity hypoventilation syndrome, obstructive sleep apnea, CHF, ejection fraction 35%, COPD, and narcotic dependent chronic pain. Patient presents via EMS from [facility] with hypoxia following MS Contin and Percocet. It is unable to provide history in the emergency room but receives IV Narcan resulting in temporary arousal and combative behavior. Patient is started on Ventimask oxygen and referred to the hospitalist for admission. Patient is found again unresponsive requiring IV Narcan with temporary improvement, hypercapnia suspected he is placed on BiPAP with pending ABG. Patient is well-known to the hospitalist service for recurrent hospitalizations and noncompliance with BiPAP and refusing ordered medications. Past Medical History Cardiac Medical History: Reports: Atrial Fibrillation, Congestive Heart Failure , Coronary Artery Disease, Myocardial Infarction, Hyperlipidema, Hypertension, Pulmonary Embolism, Heart Murmur Pulmonary Medical History: Reports: Chronic Obstructive Pulmonary Disease (COPD) Neurological Medical History: Denies: Seizures Endocrine Medical History: Denies: Diabetes Mellitus Type 2 - History of same, but only on medication for short time. Renal/ Medical History: Denies: End Stage Renal Disease GI Medical History: Denies: Crohn's Disease, Hepatitis, Ulcerative Colitis Musculoskeltal Medical History: Reports: Arthritis Skin Medical History: Denies: Psoriasis Psychiatric Medical History: Reports: Depression Traumatic Medical History: Denies: Traumatic Brain Injury Hematology: Reports: Anemia Denies: Hemophilia, Sickle Cell Disease Past Surgical History Past Surgical History: Reports: Cardiac Catheterization, Coronary Artery Bypass Graft, Coronary Stent, Internal Defibrillator, Pacemaker - Battery change out and then explantation., Tonsillectomy Social History Information Source: Emergency Med Personnel, [facility] Records Lives with: [facility] Smoking Status: Former Smoker Frequency of Alcohol Use: Rare Hx Recreational Drug Use: No Drugs: None Hx Prescription Drug Abuse: No - Advance Directive Resuscitation Status: Full Code Family History Family History: CAD, COPD, Hypertension Parental Family History Reviewed: Yes Children Family History Reviewed: Yes Sibling(s) Family History Reviewed.: Yes Medication/Allergy Home Medications: Apixaban [Eliquis] 5 mg PO Q12 02/17/18 Atorvastatin Calcium [Lipitor 40 mg Tablet] 40 mg PO DAILY 02/17/18 Sertraline HCl [Zoloft 50 mg Tablet] 50 mg PO DAILY 02/17/18 Fluticasone/Salmeterol [Advair 250-50 Diskus 28 dose] 1 inh IH Q12H 03/06/18 Multivitamin [Multivitamins] 1 each PO DAILY 03/06/18 Acetaminophen [Tylenol 325 mg Tablet] 650 mg PO Q4HP PRN tablet 05/09/18 Albuterol Sulfate [Ventolin 0.083% Neb 2.5 mg/3 mL Ampul] 2.5 mg NEB RTQ3HP PRN vial.neb 05/09/18 Apixaban [Eliquis 5 mg Tablet] 5 mg PO BID tablet 05/09/18 Aspirin [Aspirin 81 mg Chewable Tablet] 81 mg PO DAILY tab.chew 05/09/18 Atorvastatin Calcium [Lipitor 40 mg Tablet] 40 mg PO QHS tablet 05/09/18 Carvedilol [Coreg 3.125 mg Tablet] 3.125 mg PO Q12 #60 tablet 05/09/18 Docusate Sodium [Colace 100 mg Capsule] 100 mg PO BID capsule 05/09/18 Furosemide [Lasix 40 mg Tablet] 60 mg PO DAILY tablet 05/09/18 Lisinopril [Prinivil 2.5 mg Tablet] 2.5 mg PO DAILY #30 tablet 05/09/18 Morphine Sulfate [Ms-Contin Sr 15 mg Tablet] 15 mg PO Q12A #30 tablet.sa Oxycodone HCl/Acetaminophen [Endocet 10-325 mg Tablet] 1 tab PO Q6HP PRN #30 tablet 05/09/18 Potassium Chloride [Klor-Con 10 Meq Capsule ER] 20 meq PO PC capsule.er Sertraline HCl [Zoloft 50 mg Tablet] 50 mg PO DAILY tablet 05/09/18 Tiotropium [place] [Spiriva Handihaler 5 Cap/Kit (18 Mcg/Cap)] 1 cap IH DAILY kit 05/09/18 Allergies/Adverse Reactions: No Known Allergies Allergy (Verified 02/17/18 14:22) Review of Systems ROS unobtainable: Due to mental status Physical Exam Vital Signs: Temp Pulse Resp BP Pulse Ox 15 141/78 H 96 05/20/18 04:00 05/20/18 03:02 05/20/18 04:00 General appearance: PRESENT: disheveled, morbidly obese, other - Obtunded. ABSENT: cooperative Head exam: PRESENT: atraumatic, normocephalic Eye exam: PRESENT: conjunctiva pink, EOMI, PERRLA. ABSENT: scleral icterus Ear exam: PRESENT: normal external ear exam Mouth exam: PRESENT: moist, tongue midline Neck exam: ABSENT: carotid bruit, JVD, lymphadenopathy, thyromegaly Respiratory exam: PRESENT: crackles, decreased breath sounds, prolonged expiratory phas, symmetrical. ABSENT: rales, rhonchi, wheezes Cardiovascular exam: PRESENT: RRR. ABSENT: diastolic murmur, rubs, systolic murmur Pulses: PRESENT: normal dorsalis pedis pul Vascular exam: PRESENT: normal capillary refill GI/Abdominal exam: PRESENT: normal bowel sounds, soft. ABSENT: distended, guarding, mass, organolmegaly, rebound, tenderness Rectal exam: PRESENT: deferred Extremities exam: PRESENT: full ROM, +1 edema. ABSENT: calf tenderness, clubbing, pedal edema Neurological exam: PRESENT: altered, CN II-XII grossly intact, other - Appears intoxicated. ABSENT: motor sensory deficit Psychiatric exam: PRESENT: other - Sedated. ABSENT: homicidal ideation, suicidal ideation Skin exam: PRESENT: dry, intact, warm. ABSENT: cyanosis, rash Results Laboratory Results: 05/20/18 03:05 Urine Color YELLOW Urine Appearance SLIGHTLY-CLOUDY Urine pH 5.0 Ur Specific [place] 1.013 Urine Protein NEGATIVE Urine Glucose (UA) NEGATIVE Urine Ketones NEGATIVE Urine Blood NEGATIVE Urine Nitrite NEGATIVE Ur Leukocyte Esterase NEGATIVE Urine WBC (Auto) 1 Urine RBC (Auto) 1 Impressions: Chest X-Ray 05/20/18 01:08 IMPRESSION: Cardiomegaly and CHF. Bibasilar pleural effusion and/or atelectasis and/or infiltrate, left side more apparent than right. 2010 [employer]- All Rights Reserved Assessment & Plan - Diagnosis (1) Obesity hypoventilation syndrome Is this a current diagnosis for this admission?: Yes Plan: Complicated by narcotics, obstructive sleep apnea and noncompliance. ABG pending, continue BiPAP (2) ARF (acute renal failure) Qualifiers: Acute renal failure type: unspecified Qualified Code(s): N17.9 - Acute kidney failure, unspecified Is this a current diagnosis for this admission?: Yes Plan: Renal function of December 2017 is 0.9 currently 2.4, follow-up urinalysis, avoid nephrotoxic meds and doses (3) Acute and chronic respiratory failure Qualifiers: Respiratory failure complication: hypoxia Qualified Code(s): J96.21 - Acute and chronic respiratory failure with hypoxia Is this a current diagnosis for this admission?: Yes Plan: Supplemental oxygen and BiPAP, please see #1 (4) CHF exacerbation Qualifiers: Heart failure type: unspecified Qualified Code(s): I50.9 - Heart failure, unspecified Is this a current diagnosis for this admission?: Yes Plan: Congestive heart failure care set deployed. Fluid restriction, gentle diuresis , follow-up chemistry (5) Opiate dependence, continuous Is this a current diagnosis for this admission?: Yes Plan: Weaning to avoid withdrawal secondary to respiratory depression - Time Time Spent: 50 to 70 Minutes - Inpatient Certification Medical Necessity: Need Close Monitoring Due to Risk of Patient Decompensation
[2018-05-20] MEDS: MORPHINE SULFATE SR 15 MG TABLET PO SCH ×2 (06:38→16:59)
--- NOTE | 2018-05-20 08:00 | EKG REPORT ---
SEVERITY:- ABNORMAL ECG - A-V DUAL-PACED COMPLEXES W/ SOME INHIBITION : Confirmed by: Barbara Ann MD 20-May-2018 08:00:06
[2018-05-20 08:29] LABS: CREATINE KINASE MB 1.52 ng/mL (<4.55); TROPONIN I 0.033 ng/mL
[2018-05-20] MEDS: SERTRALINE HCL 50 MG TABLET PO SCH (09:49)
[2018-05-20] MEDS: ASPIRIN 81 MG TABLET, ENT COATED PO SCH (09:49)
[2018-05-20] MEDS: CARVEDILOL 3.125 MG TABLET PO SCH (09:49)
[2018-05-20] MEDS: APIXABAN 5 MG TABLET PO SCH (09:49)
[2018-05-20] MEDS: FLUTICASONE/SALMETEROL DISKUS 250-50 MCG/DOSE IH SCH (09:49)
[2018-05-20] MEDS: LISINOPRIL 5 MG TABLET PO SCH (09:50)
[2018-05-20] MEDS: FUROSEMIDE INJ/PF 40 MG/4 ML SDV IV SCH (09:56)
[2018-05-20] MEDS: NITROGLYCERIN 5 MG (0.2 MG/HR) PATCH.TD24 TD SCH (09:56)
[2018-05-20 14:05] LABS: CREATINE KINASE MB 1.14 ng/mL (<4.55)
[2018-05-20 14:29] LABS: TROPONIN I 0.029 ng/mL
[2018-05-21] MEDS: FLUTICASONE/SALMETEROL DISKUS 250-50 MCG/DOSE IH SCH ×3 (00:02→21:10)
[2018-05-21] MEDS: CARVEDILOL 3.125 MG TABLET PO SCH ×3 (00:25→21:10)
[2018-05-21] MEDS: ATORVASTATIN CALCIUM 40 MG TABLET PO SCH ×2 (00:25→21:09)
[2018-05-21] MEDS: APIXABAN 5 MG TABLET PO SCH ×3 (00:25→21:09)
[2018-05-21 05:21] LABS: ABSOLUTE EOSINOPHILS # (AUTO) 0.1 10^3/uL (0.0-0.6); ABSOLUTE LYMPHOCYTES (AUTO) 1.1 10^3/uL (0.5-4.7); ABSOLUTE MONOCYTES (AUTO) 0.5 10^3/uL (0.1-1.4); ABSOLUTE NEUT (AUTO) 2.6 10^3/uL (1.7-8.2); HEMATOCRIT 23.6 % (37.9-51.0); LYMPHOCYTES % (AUTO) 23.9 % (13-45); MEAN CORPUSCULAR HEMOGLOBIN 26.9 pg (27.0-33.4); MEAN CORPUSCULAR HGB CONC 32.2 g/dL (32.0-36.0); MEAN CORPUSCULAR VOLUME 84 fl (80-97); PLATELET COUNT 207 10^3/uL (150-450); RED BLOOD COUNT 2.83 10^6/uL (4.35-5.55); RED CELL DISTRIBUTION WIDTH 19.8 % (11.5-14.0); SEGMENTED NEUTROPHILS % (AUTO) 60.1 % (42-78); TOTAL CELLS COUNTED % (AUTO) 100 %; WHITE BLOOD COUNT 4.4 10^3/uL (4.0-10.5)
[2018-05-21 05:25] LABS: ANION GAP 9 (5-19); BLOOD UREA NITROGEN 51 mg/dL (7-20); CALCIUM 8.5 mg/dL (8.4-10.2); CARBON DIOXIDE 32 mmol/L (22-30); CHLORIDE 102 mmol/L (98-107); GLUCOSE 78 mg/dL (75-110); POTASSIUM 4.8 mmol/L (3.6-5.0); SODIUM 142.5 mmol/L (137-145)
[2018-05-21 05:26] LABS: HEMOGLOBIN 7.6 g/dL (13.5-17.0)
[2018-05-21] MEDS: MORPHINE SULFATE SR 15 MG TABLET PO SCH (05:38)
[2018-05-21] MEDS: SERTRALINE HCL 50 MG TABLET PO SCH (09:52)
[2018-05-21] MEDS: NITROGLYCERIN 5 MG (0.2 MG/HR) PATCH.TD24 TD SCH (09:53)
[2018-05-21] MEDS: LISINOPRIL 5 MG TABLET PO SCH (09:53)
[2018-05-21] MEDS: ASPIRIN 81 MG TABLET, ENT COATED PO SCH (09:56)
[2018-05-21] MEDS: FUROSEMIDE INJ/PF 40 MG/4 ML SDV IV SCH (09:56)
--- NOTE | 2018-05-21 13:59 | PDOC PROGRESS REPORT ---
Subjective Progress Note for:: 05/21/18 Subjective:: No adverse events overnight. Rests well on BiPAP. Awakens to verbal command. I have taken care of this patient before and I think his mental status is pretty close to baseline at this time. Reason For Visit: ARF, SUNNY, ANEMIA, HEART FAILURE Physical Exam Vital Signs: Temp Pulse Resp BP Pulse Ox 98.4 F 60 20 115/64 93 05/21/18 09:35 05/21/18 09:35 05/21/18 12:17 05/21/18 09:35 05/21/18 11:01 Intake & Output 05/20/18 05/21/18 05/22/18 06:59 06:59 06:59 Intake Total 487 568 Output Total 0 300 Balance 0 487 268 Weight 133.1 kg 130.8 kg General appearance: PRESENT: no acute distress, cooperative, disheveled, morbidly obese Respiratory exam: PRESENT: clear to auscultation shivani, symmetrical, unlabored. ABSENT: accessory muscle use, chest wall tenderness, rales, rhonchi, stridor, tachypnea, wheezes Cardiovascular exam: PRESENT: RRR, +S1, +S2. ABSENT: diastolic murmur, systolic murmur Vascular exam: PRESENT: normal capillary refill GI/Abdominal exam: PRESENT: normal bowel sounds, soft. ABSENT: distended, guarding, rebound, tenderness Extremities exam: PRESENT: pedal edema. ABSENT: clubbing, joint swelling Musculoskeletal exam: PRESENT: normal inspection. ABSENT: deformity Neurological exam: PRESENT: alert, awake, oriented to person, oriented to place Psychiatric exam: PRESENT: flat affect - This is normal for him Skin exam: PRESENT: dry, pallor, warm Results Laboratory Results: 05/21/18 04:47 05/21/18 04:47 05/21/18 05/21/18 05/21/18 04:47 04:47 06:48 WBC 4.4 RBC 2.83 L Hgb 7.6 L Hct 23.6 L MCV 84 MCH 26.9 L MCHC 32.2 RDW 19.8 H Plt Count 207 Seg Neutrophils % 60.1 Lymphocytes % 23.9 Monocytes % 12.0 Eosinophils % 3.0 Basophils % 1.0 Absolute Neutrophils 2.6 Absolute Lymphocytes 1.1 Absolute Monocytes 0.5 Absolute Eosinophils 0.1 Absolute Basophils 0.0 Sodium 142.5 Potassium 4.8 Chloride 102 Carbon Dioxide 32 H Anion Gap 9 BUN 51 H Creatinine 2.27 H Est GFR ( Amer) 34 L Est GFR (Non-Af Amer) 28 L Glucose 78 Calcium 8.5 Blood Type B POSITIVE Antibody Screen NEGATIVE 05/20/18 05/20/18 05/20/18 07:25 07:25 13:21 Creatine Kinase 43 L 38 L CK-MB (CK-2) 1.52 Troponin I 0.033 05/20/18 13:21 Creatine Kinase CK-MB (CK-2) 1.14 Troponin I 0.029 Impressions: Chest X-Ray 05/20/18 01:08 IMPRESSION: Cardiomegaly and CHF. Bibasilar pleural effusion and/or atelectasis and/or infiltrate, left side more apparent than right. 2010 [email or web address]- All Rights Reserved Assessment & Plan - Diagnosis (1) Acute respiratory failure with hypoxia Is this a current diagnosis for this admission?: Yes Plan: This is largely resolved. I think it was secondary to a toxic encephalopathy from overmedication with opiates. He is now ventilating without any difficulty. (2) Opiate dependence, continuous Is this a current diagnosis for this admission?: Yes Plan: It sounds like he got too much of his medicine at once at the [facility] and that appears to be what has caused his current predicament. All we have done his hold his sedating medications and he has improved. (3) Anemia due to chronic kidney disease Qualifiers: Chronic kidney disease stage: stage 4 (severe) Qualified Code(s): N18.4 - Chronic kidney disease, stage 4 (severe); D63.1 - Anemia in chronic kidney disease; D63.1 - Anemia in chronic kidney disease Is this a current diagnosis for this admission?: Yes Plan: His hemoglobin usually runs around 8. That is about where he was when he came in. He got some IV fluids and it diluted his blood little bit. He had some blood work for him overnight. 2 units were ordered, one has been transfused. We will check his hemoglobin before the second unit is transfused. I suspect it will not be needed. - Time Time Spent with patient: 25-34 minutes - Plan Summary Plan Summary: If blood counts and pulse oximetry are satisfactory, he can be transferred back to the group home facility Tuesday morning.
[2018-05-21] MEDS: ACETAMINOPHEN 325 MG TABLET PO PRN (14:02)
[2018-05-21 14:21] LABS: ABSOLUTE EOSINOPHILS # (AUTO) 0.1 10^3/uL (0.0-0.6); ABSOLUTE MONOCYTES (AUTO) 0.5 10^3/uL (0.1-1.4); ABSOLUTE NEUT (AUTO) 3.3 10^3/uL (1.7-8.2); BASOPHILS % (AUTO) 0.7 % (0-2); EOSINOPHILS % (AUTO) 2.8 % (0-6); HEMATOCRIT 24.6 % (37.9-51.0); LYMPHOCYTES % (AUTO) 20.8 % (13-45); MEAN CORPUSCULAR HEMOGLOBIN 27.4 pg (27.0-33.4); MEAN CORPUSCULAR HGB CONC 32.5 g/dL (32.0-36.0); MEAN CORPUSCULAR VOLUME 84 fl (80-97); MONOCYTES % (AUTO) 9.3 % (3-13); PLATELET COUNT 225 10^3/uL (150-450); RED BLOOD COUNT 2.92 10^6/uL (4.35-5.55); RED CELL DISTRIBUTION WIDTH 19.2 % (11.5-14.0); SEGMENTED NEUTROPHILS % (AUTO) 66.4 % (42-78); TOTAL CELLS COUNTED % (AUTO) 100 %; WHITE BLOOD COUNT 4.9 10^3/uL (4.0-10.5)
[2018-05-22] MEDS: FLUTICASONE/SALMETEROL DISKUS 250-50 MCG/DOSE IH SCH ×2 (10:06→22:27)
[2018-05-22] MEDS: FUROSEMIDE INJ/PF 40 MG/4 ML SDV IV SCH (10:06)
[2018-05-22] MEDS: LISINOPRIL 5 MG TABLET PO SCH (10:08)
[2018-05-22] MEDS: CARVEDILOL 3.125 MG TABLET PO SCH ×2 (10:09→22:27)
[2018-05-22] MEDS: NITROGLYCERIN 5 MG (0.2 MG/HR) PATCH.TD24 TD SCH (10:09)
[2018-05-22] MEDS: SERTRALINE HCL 50 MG TABLET PO SCH (10:09)
[2018-05-22] MEDS: ASPIRIN 81 MG TABLET, ENT COATED PO SCH (10:09)
[2018-05-22] MEDS: APIXABAN 5 MG TABLET PO SCH ×2 (10:09→22:26)
--- NOTE | 2018-05-22 12:24 | PDOC PROGRESS REPORT ---
Subjective Progress Note for:: 05/22/18 Subjective:: Is seen in his room appears to be pretty comfortable. He says his breathing is better. She is confused but appears to be pretty close to his baseline. Patient is well-known to this service Reason For Visit: ARF, SUNNY, ANEMIA, HEART FAILURE Physical Exam Vital Signs: Temp Pulse Resp BP Pulse Ox 98.5 F 59 L 23 H 97/52 L 100 05/22/18 11:02 05/22/18 11:02 05/22/18 11:02 05/22/18 11:02 05/22/18 11:02 Intake & Output 05/21/18 05/22/18 05/23/18 06:59 06:59 06:59 Intake Total 487 986 709 Output Total 700 500 Balance 487 286 209 Weight 130.8 kg 129.7 kg General appearance: PRESENT: no acute distress, obese, well-developed, well- nourished Head exam: PRESENT: atraumatic, normocephalic Eye exam: PRESENT: conjunctiva pink, EOMI, PERRLA. ABSENT: scleral icterus Ear exam: PRESENT: normal external ear exam Mouth exam: PRESENT: moist, tongue midline Neck exam: ABSENT: carotid bruit, JVD, lymphadenopathy, thyromegaly Respiratory exam: PRESENT: rhonchi, unlabored. ABSENT: rales, tachypnea, wheezes Cardiovascular exam: PRESENT: irregular rhythm. ABSENT: diastolic murmur, rubs , systolic murmur Pulses: PRESENT: normal dorsalis pedis pul Vascular exam: PRESENT: normal capillary refill GI/Abdominal exam: PRESENT: normal bowel sounds, soft. ABSENT: distended, guarding, mass, organolmegaly, rebound, tenderness Rectal exam: PRESENT: deferred Extremities exam: PRESENT: +2 edema. ABSENT: calf tenderness, clubbing, pedal edema Neurological exam: PRESENT: alert, awake, oriented to person, oriented to place , oriented to situation. ABSENT: motor sensory deficit Psychiatric exam: PRESENT: appropriate affect, normal mood. ABSENT: homicidal ideation, suicidal ideation Skin exam: PRESENT: dry, intact, warm. ABSENT: cyanosis, rash Results Laboratory Results: 05/21/18 13:47 05/21/18 04:47 05/21/18 13:47 WBC 4.9 RBC 2.92 L Hgb 8.0 L Hct 24.6 L MCV 84 MCH 27.4 MCHC 32.5 RDW 19.2 H Plt Count 225 Seg Neutrophils % 66.4 Lymphocytes % 20.8 Monocytes % 9.3 Eosinophils % 2.8 Basophils % 0.7 Absolute Neutrophils 3.3 Absolute Lymphocytes 1.0 Absolute Monocytes 0.5 Absolute Eosinophils 0.1 Absolute Basophils 0.0 05/20/18 05/20/18 05/20/18 07:25 07:25 13:21 Creatine Kinase 43 L 38 L CK-MB (CK-2) 1.52 Troponin I 0.033 05/20/18 13:21 Creatine Kinase CK-MB (CK-2) 1.14 Troponin I 0.029 Impressions: Chest X-Ray 05/20/18 01:08 IMPRESSION: Cardiomegaly and CHF. Bibasilar pleural effusion and/or atelectasis and/or infiltrate, left side more apparent than right. 2010 [employer]- All Rights Reserved Assessment & Plan - Diagnosis (1) ARF (acute renal failure) Qualifiers: Acute renal failure type: unspecified Qualified Code(s): N17.9 - Acute kidney failure, unspecified Is this a current diagnosis for this admission?: Yes Plan: Patient has chronic kidney disease but his kidney function appears to be slightly worse We will continue to monitor (2) Acute and chronic respiratory failure Qualifiers: Respiratory failure complication: hypoxia Qualified Code(s): J96.21 - Acute and chronic respiratory failure with hypoxia Is this a current diagnosis for this admission?: Yes (3) Anemia due to chronic kidney disease Qualifiers: Chronic kidney disease stage: stage 4 (severe) Qualified Code(s): N18.4 - Chronic kidney disease, stage 4 (severe); D63.1 - Anemia in chronic kidney disease; D63.1 - Anemia in chronic kidney disease Is this a current diagnosis for this admission?: Yes Plan: Patient was transfused with 1 unit of packed red blood cells on 1125. Hemoglobin is at 8. We will recheck hemoglobin in a.m. Currently it is close to his baseline Of note patient is also on Eliquis for his chronic atrial fibrillation (4) CHF exacerbation Qualifiers: Heart failure type: unspecified Qualified Code(s): I50.9 - Heart failure, unspecified Is this a current diagnosis for this admission?: Yes Plan: We will continue with diuresis. We will decrease the dose of Nitropaste as his blood pressure is somewhat borderline (5) Obesity hypoventilation syndrome Is this a current diagnosis for this admission?: Yes Plan: Continue CPAP (6) Opiate dependence, continuous Is this a current diagnosis for this admission?: Yes Plan: Judicious narcotic use (7) Combined systolic and diastolic cardiac dysfunction Is this a current diagnosis for this admission?: Yes - Time Time Spent with patient: 25-34 minutes Medications reviewed and adjusted accordingly: Yes Anticipated discharge: SNF Within: within 72 hours - Inpatient Certification Based on my medical assessment, after consideration of the patient's comorbidities, presenting symptoms, or acuity I expect that the services needed warrant INPATIENT care.: Yes Medical Necessity: Need Close Monitoring Due to Risk of Patient Decompensation, Need For Continuous Telemetry Monitoring
[2018-05-22] MEDS: ACETAMINOPHEN 325 MG TABLET PO PRN (12:34)
[2018-05-22] MEDS: ATORVASTATIN CALCIUM 40 MG TABLET PO SCH (22:26)
[2018-05-23 05:09] LABS: HEMATOCRIT 24.8 % (37.9-51.0); HEMOGLOBIN 8.1 g/dL (13.5-17.0); MEAN CORPUSCULAR HEMOGLOBIN 27.5 pg (27.0-33.4); MEAN CORPUSCULAR HGB CONC 32.7 g/dL (32.0-36.0); MEAN CORPUSCULAR VOLUME 84 fl (80-97); PLATELET COUNT 188 10^3/uL (150-450); RED BLOOD COUNT 2.96 10^6/uL (4.35-5.55); RED CELL DISTRIBUTION WIDTH 18.9 % (11.5-14.0); WHITE BLOOD COUNT 4.8 10^3/uL (4.0-10.5)
[2018-05-23] MEDS: LISINOPRIL 5 MG TABLET PO SCH (10:12)
[2018-05-23] MEDS: APIXABAN 5 MG TABLET PO SCH ×2 (10:13→23:10)
[2018-05-23] MEDS: NITROGLYCERIN 2.5 MG (0.1 MG/HR) PATCH.TD24 TD SCH (10:13)
[2018-05-23] MEDS: SERTRALINE HCL 50 MG TABLET PO SCH (10:13)
[2018-05-23] MEDS: CARVEDILOL 3.125 MG TABLET PO SCH ×2 (10:13→23:10)
[2018-05-23] MEDS: ASPIRIN 81 MG TABLET, ENT COATED PO SCH (10:13)
[2018-05-23] MEDS: FUROSEMIDE INJ/PF 40 MG/4 ML SDV IV SCH (10:15)
[2018-05-23] MEDS: FLUTICASONE/SALMETEROL DISKUS 250-50 MCG/DOSE IH SCH ×2 (10:15→23:10)
[2018-05-23] MEDS: ACETAMINOPHEN 325 MG TABLET PO PRN (15:50)
--- NOTE | 2018-05-23 18:16 | PDOC PROGRESS REPORT ---
Subjective Progress Note for:: 05/23/18 Subjective:: Is seen in his room appears to be pretty comfortable. He says his breathing is better. His son says he wants another facility due to the dad coming in being ' overmedicated' Reason For Visit: ARF, SUNNY, ANEMIA, HEART FAILURE Physical Exam Vital Signs: Temp Pulse Resp BP Pulse Ox 100.6 F H 60 17 91/49 L 97 05/23/18 15:15 05/23/18 15:15 05/23/18 15:15 05/23/18 15:15 05/23/18 16:03 Intake & Output 05/22/18 05/23/18 05/24/18 06:59 06:59 06:59 Intake Total 986 1401 700 Output Total 700 1850 1022 Balance 286 -240 -958 Weight 129.7 kg 129.8 kg General appearance: PRESENT: no acute distress, well-developed, well-nourished Head exam: PRESENT: atraumatic, normocephalic Eye exam: PRESENT: conjunctiva pink, EOMI, PERRLA. ABSENT: scleral icterus Ear exam: PRESENT: normal external ear exam Mouth exam: PRESENT: moist, tongue midline Neck exam: ABSENT: carotid bruit, JVD, lymphadenopathy, thyromegaly Respiratory exam: PRESENT: rhonchi, unlabored. ABSENT: rales, tachypnea, wheezes Cardiovascular exam: PRESENT: RRR. ABSENT: diastolic murmur, rubs, systolic murmur Pulses: PRESENT: normal dorsalis pedis pul Vascular exam: PRESENT: normal capillary refill GI/Abdominal exam: PRESENT: normal bowel sounds, soft. ABSENT: distended, guarding, mass, organolmegaly, rebound, tenderness Rectal exam: PRESENT: deferred Extremities exam: PRESENT: full ROM. ABSENT: calf tenderness, clubbing, pedal edema Neurological exam: PRESENT: alert, awake, oriented to place, oriented to situation, CN II-XII grossly intact. ABSENT: motor sensory deficit Psychiatric exam: PRESENT: appropriate affect, normal mood. ABSENT: homicidal ideation, suicidal ideation Skin exam: PRESENT: intact, warm. ABSENT: cyanosis, rash Results Laboratory Results: 05/23/18 04:29 05/21/18 04:47 05/23/18 04:29 WBC 4.8 RBC 2.96 L Hgb 8.1 L Hct 24.8 L MCV 84 MCH 27.5 MCHC 32.7 RDW 18.9 H Plt Count 188 05/20/18 05/20/18 05/20/18 07:25 07:25 13:21 Creatine Kinase 43 L 38 L CK-MB (CK-2) 1.52 Troponin I 0.033 05/20/18 13:21 Creatine Kinase CK-MB (CK-2) 1.14 Troponin I 0.029 Impressions: Chest X-Ray 05/20/18 01:08 IMPRESSION: Cardiomegaly and CHF. Bibasilar pleural effusion and/or atelectasis and/or infiltrate, left side more apparent than right. 2010 [employer]- All Rights Reserved Assessment & Plan - Diagnosis (1) ARF (acute renal failure) Qualifiers: Acute renal failure type: unspecified Qualified Code(s): N17.9 - Acute kidney failure, unspecified Is this a current diagnosis for this admission?: Yes (2) Acute and chronic respiratory failure Qualifiers: Respiratory failure complication: hypoxia Qualified Code(s): J96.21 - Acute and chronic respiratory failure with hypoxia Is this a current diagnosis for this admission?: Yes (3) Anemia due to chronic kidney disease Qualifiers: Chronic kidney disease stage: stage 4 (severe) Qualified Code(s): N18.4 - Chronic kidney disease, stage 4 (severe); D63.1 - Anemia in chronic kidney disease; D63.1 - Anemia in chronic kidney disease Is this a current diagnosis for this admission?: Yes (4) CHF exacerbation Qualifiers: Heart failure type: unspecified Qualified Code(s): I50.9 - Heart failure, unspecified Is this a current diagnosis for this admission?: Yes (5) Obesity hypoventilation syndrome Is this a current diagnosis for this admission?: Yes (6) Opiate dependence, continuous Is this a current diagnosis for this admission?: Yes (7) Combined systolic and diastolic cardiac dysfunction Is this a current diagnosis for this admission?: Yes - Time Time Spent with patient: 15-24 minutes Medications reviewed and adjusted accordingly: Yes Anticipated discharge: Acute Rehab Within: within 48 hours - Inpatient Certification Based on my medical assessment, after consideration of the patient's comorbidities, presenting symptoms, or acuity I expect that the services needed warrant INPATIENT care.: Yes Medical Necessity: Need For Continuous Telemetry Monitoring, Risk of Complication if Not Cared For in Hospital
[2018-05-23] MEDS: OXYCODONE-ACETAMINOPHEN 5-325 MG TABLET PO PRN (18:40)
[2018-05-23] MEDS: ATORVASTATIN CALCIUM 40 MG TABLET PO SCH (23:10)
[2018-05-24] MEDS: OXYCODONE-ACETAMINOPHEN 5-325 MG TABLET PO PRN ×3 (08:12→21:26)
--- NOTE | 2018-05-24 09:03 | PDOC PROGRESS REPORT ---
Subjective Progress Note for:: 05/24/18 Subjective:: Is seen in his room appears to be pretty comfortable. He says his breathing is better. His son says he wants another facility due to the dad coming in being ' overmedicated' Patient has no new symptoms today Reason For Visit: ARF, SUNNY, ANEMIA, HEART FAILURE Physical Exam Vital Signs: Temp Pulse Resp BP Pulse Ox 98.3 F 59 L 24 H 113/59 L 95 05/24/18 07:20 05/24/18 07:20 05/24/18 07:20 05/24/18 07:20 05/24/18 07:20 Intake & Output 05/23/18 05/24/18 05/25/18 06:59 06:59 06:59 Intake Total 1401 700 Output Total 1850 1122 Balance -449 -422 Weight 129.8 kg 131.2 kg General appearance: PRESENT: no acute distress, well-developed, well-nourished Head exam: PRESENT: atraumatic, normocephalic Eye exam: PRESENT: conjunctiva pink, EOMI, PERRLA. ABSENT: scleral icterus Ear exam: PRESENT: normal external ear exam Mouth exam: PRESENT: moist, tongue midline Neck exam: ABSENT: carotid bruit, JVD, lymphadenopathy, thyromegaly Respiratory exam: PRESENT: clear to auscultation shivani. ABSENT: rales, rhonchi, wheezes Cardiovascular exam: PRESENT: RRR. ABSENT: diastolic murmur, rubs, systolic murmur Pulses: PRESENT: normal dorsalis pedis pul Vascular exam: PRESENT: normal capillary refill GI/Abdominal exam: PRESENT: normal bowel sounds, soft. ABSENT: distended, guarding, mass, organolmegaly, rebound, tenderness Rectal exam: PRESENT: deferred Extremities exam: PRESENT: full ROM, +2 edema. ABSENT: calf tenderness, clubbing, pedal edema Neurological exam: PRESENT: alert, awake, oriented to person, oriented to place , oriented to situation, CN II-XII grossly intact. ABSENT: motor sensory deficit Psychiatric exam: PRESENT: appropriate affect, normal mood, other - Appears to be less confused. ABSENT: homicidal ideation, suicidal ideation Skin exam: PRESENT: dry, intact, warm. ABSENT: cyanosis, rash Results Laboratory Results: 05/23/18 04:29 05/21/18 04:47 05/20/18 05/20/18 05/20/18 07:25 07:25 13:21 Creatine Kinase 43 L 38 L CK-MB (CK-2) 1.52 Troponin I 0.033 05/20/18 13:21 Creatine Kinase CK-MB (CK-2) 1.14 Troponin I 0.029 Impressions: Chest X-Ray 05/20/18 01:08 IMPRESSION: Cardiomegaly and CHF. Bibasilar pleural effusion and/or atelectasis and/or infiltrate, left side more apparent than right. 2010 [employer]- All Rights Reserved Assessment & Plan - Diagnosis (1) ARF (acute renal failure) Qualifiers: Acute renal failure type: unspecified Qualified Code(s): N17.9 - Acute kidney failure, unspecified Is this a current diagnosis for this admission?: Yes (2) Acute and chronic respiratory failure Qualifiers: Respiratory failure complication: hypoxia Qualified Code(s): J96.21 - Acute and chronic respiratory failure with hypoxia Is this a current diagnosis for this admission?: Yes (3) Anemia due to chronic kidney disease Qualifiers: Chronic kidney disease stage: stage 4 (severe) Qualified Code(s): N18.4 - Chronic kidney disease, stage 4 (severe); D63.1 - Anemia in chronic kidney disease; D63.1 - Anemia in chronic kidney disease Is this a current diagnosis for this admission?: Yes Plan: Status post 1 unit of packed red blood cell. 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
[2018-05-24] MEDS: APIXABAN 5 MG TABLET PO SCH ×2 (10:09→21:22)
[2018-05-24] MEDS: NITROGLYCERIN 2.5 MG (0.1 MG/HR) PATCH.TD24 TD SCH (10:09)
[2018-05-24] MEDS: FLUTICASONE/SALMETEROL DISKUS 250-50 MCG/DOSE IH SCH ×2 (10:09→21:22)
[2018-05-24] MEDS: SERTRALINE HCL 50 MG TABLET PO SCH (10:09)
[2018-05-24] MEDS: CARVEDILOL 3.125 MG TABLET PO SCH ×2 (10:09→21:23)
[2018-05-24] MEDS: ASPIRIN 81 MG TABLET, ENT COATED PO SCH (10:09)
[2018-05-24] MEDS: LISINOPRIL 5 MG TABLET PO SCH (10:09)
[2018-05-24] MEDS: FUROSEMIDE INJ/PF 40 MG/4 ML SDV IV SCH (10:10)
[2018-05-24] MEDS: ATORVASTATIN CALCIUM 40 MG TABLET PO SCH (21:22)
[2018-05-25] MEDS: OXYCODONE-ACETAMINOPHEN 5-325 MG TABLET PO PRN ×4 (04:38→23:54)
[2018-05-25] MEDS: LISINOPRIL 5 MG TABLET PO SCH (09:44)
[2018-05-25] MEDS: ASPIRIN 81 MG TABLET, ENT COATED PO SCH (09:45)
[2018-05-25] MEDS: APIXABAN 5 MG TABLET PO SCH ×2 (09:45→22:07)
[2018-05-25] MEDS: NITROGLYCERIN 2.5 MG (0.1 MG/HR) PATCH.TD24 TD SCH (09:45)
[2018-05-25] MEDS: SERTRALINE HCL 50 MG TABLET PO SCH (09:45)
[2018-05-25] MEDS: FLUTICASONE/SALMETEROL DISKUS 250-50 MCG/DOSE IH SCH ×2 (09:45→22:07)
[2018-05-25] MEDS: CARVEDILOL 3.125 MG TABLET PO SCH ×2 (09:48→22:10)
[2018-05-25] MEDS: FUROSEMIDE INJ/PF 40 MG/4 ML SDV IV SCH (09:49)
--- NOTE | 2018-05-25 13:24 | PDOC PROGRESS REPORT ---
Subjective Progress Note for:: 05/25/18 Subjective:: Patient has no new symptoms today Awaiting transfer to Rehab when bed available. No chest pain or dizziness Reason For Visit: ARF, SUNNY, ANEMIA, HEART FAILURE Physical Exam Vital Signs: Temp Pulse Resp BP Pulse Ox 98.1 F 59 L 17 87/52 L 99 05/25/18 11:14 05/25/18 11:14 05/25/18 11:14 05/25/18 11:14 05/25/18 11:14 Intake & Output 05/24/18 05/25/18 05/26/18 06:59 06:59 06:59 Intake Total 700 676 480 Output Total 1122 975 225 Balance -422 -299 255 Weight 131.2 kg 132.5 kg General appearance: PRESENT: no acute distress, morbidly obese, other - chronically ill looking Head exam: PRESENT: atraumatic Mouth exam: PRESENT: neck supple Neck exam: ABSENT: carotid bruit, JVD, lymphadenopathy, thyromegaly Respiratory exam: PRESENT: rhonchi - few, unlabored. ABSENT: tachypnea Cardiovascular exam: PRESENT: RRR, +S1, +S2 GI/Abdominal exam: PRESENT: normal bowel sounds, soft. ABSENT: distended, guarding, mass, organolmegaly, rebound, tenderness Extremities exam: PRESENT: pedal edema, +2 edema Neurological exam: PRESENT: alert, awake, oriented to person, oriented to place , oriented to time Results Laboratory Results: 05/23/18 04:29 05/21/18 04:47 05/20/18 05/20/18 05/20/18 07:25 07:25 13:21 Creatine Kinase 43 L 38 L CK-MB (CK-2) 1.52 Troponin I 0.033 05/20/18 13:21 Creatine Kinase CK-MB (CK-2) 1.14 Troponin I 0.029 Impressions: Chest X-Ray 05/20/18 01:08 IMPRESSION: Cardiomegaly and CHF. Bibasilar pleural effusion and/or atelectasis and/or infiltrate, left side more apparent than right. 2010 [employer]- All Rights Reserved Assessment & Plan - Diagnosis (1) ARF (acute renal failure) Qualifiers: Acute renal failure type: unspecified Qualified Code(s): N17.9 - Acute kidney failure, unspecified Is this a current diagnosis for this admission?: Yes Plan: Patient has chronic kidney disease but his kidney function appears to be slightly worse We will continue to monitor (2) Acute and chronic respiratory failure Qualifiers: Respiratory failure complication: hypoxia Qualified Code(s): J96.21 - Acute and chronic respiratory failure with hypoxia Is this a current diagnosis for this admission?: Yes Plan: Appears to be at baseline (3) Anemia due to chronic kidney disease Qualifiers: Chronic kidney disease stage: stage 4 (severe) Qualified Code(s): N18.4 - Chronic kidney disease, stage 4 (severe); D63.1 - Anemia in chronic kidney disease; D63.1 - Anemia in chronic kidney disease Is this a current diagnosis for this admission?: Yes Plan: Status post 1 unit of packed red blood cell. 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
[2018-05-25] MEDS: ATORVASTATIN CALCIUM 40 MG TABLET PO SCH (22:07)
[2018-05-26 05:25] LABS: ABSOLUTE EOSINOPHILS # (AUTO) 0.2 10^3/uL (0.0-0.6); ABSOLUTE LYMPHOCYTES (AUTO) 1.1 10^3/uL (0.5-4.7); ABSOLUTE MONOCYTES (AUTO) 0.7 10^3/uL (0.1-1.4); ABSOLUTE NEUT (AUTO) 2.4 10^3/uL (1.7-8.2); BASOPHILS % (AUTO) 0.4 % (0-2); EOSINOPHILS % (AUTO) 4.8 % (0-6); HEMATOCRIT 24.2 % (37.9-51.0); LYMPHOCYTES % (AUTO) 24.7 % (13-45); MEAN CORPUSCULAR HEMOGLOBIN 27.5 pg (27.0-33.4); MEAN CORPUSCULAR HGB CONC 32.9 g/dL (32.0-36.0); MEAN CORPUSCULAR VOLUME 84 fl (80-97); MONOCYTES % (AUTO) 15.2 % (3-13); PLATELET COUNT 142 10^3/uL (150-450); RED BLOOD COUNT 2.89 10^6/uL (4.35-5.55); RED CELL DISTRIBUTION WIDTH 19.4 % (11.5-14.0); SEGMENTED NEUTROPHILS % (AUTO) 54.9 % (42-78); TOTAL CELLS COUNTED % (AUTO) 100 %; WHITE BLOOD COUNT 4.4 10^3/uL (4.0-10.5)
[2018-05-26 05:48] LABS: ANION GAP 9 (5-19); BLOOD UREA NITROGEN 42 mg/dL (7-20); CALCIUM 7.9 mg/dL (8.4-10.2); CARBON DIOXIDE 31 mmol/L (22-30); CHLORIDE 96 mmol/L (98-107); GLUCOSE 87 mg/dL (75-110); POTASSIUM 4.9 mmol/L (3.6-5.0)
[2018-05-26] MEDS: OXYCODONE-ACETAMINOPHEN 5-325 MG TABLET PO PRN ×3 (06:08→20:13)
[2018-05-26] MEDS: CARVEDILOL 3.125 MG TABLET PO SCH ×2 (09:34→21:50)
[2018-05-26] MEDS: FLUTICASONE/SALMETEROL DISKUS 250-50 MCG/DOSE IH SCH ×2 (09:35→21:54)
[2018-05-26] MEDS: APIXABAN 5 MG TABLET PO SCH ×2 (09:35→21:54)
[2018-05-26] MEDS: ASPIRIN 81 MG TABLET, ENT COATED PO SCH (09:35)
[2018-05-26] MEDS: LISINOPRIL 5 MG TABLET PO SCH (09:35)
[2018-05-26] MEDS: SERTRALINE HCL 50 MG TABLET PO SCH (09:36)
[2018-05-26] MEDS: FUROSEMIDE INJ/PF 40 MG/4 ML SDV IV SCH (09:36)
--- NOTE | 2018-05-26 12:09 | PDOC PROGRESS REPORT ---
Subjective Progress Note for:: 05/26/18 Subjective:: Patient admitted with spectral failure thought to be related to medication overdose. Patient has recurrent admissions for respiratory failure with CHF decompensation. Patient is quite noncompliant with his son who appears to be an abettor. Patient has no new symptoms today Awaiting transfer to Rehab when bed available. No chest pain or dizziness Reason For Visit: ARF, SUNNY, ANEMIA, HEART FAILURE Physical Exam Vital Signs: Temp Pulse Resp BP Pulse Ox 99.0 F 99 17 92/57 L 99 05/26/18 11:21 05/26/18 11:21 05/26/18 11:21 05/26/18 11:21 05/26/18 11:21 Intake & Output 05/25/18 05/26/18 05/27/18 06:59 06:59 06:59 Intake Total 676 998 Output Total 975 1175 Balance -299 -177 Weight 132.5 kg General appearance: PRESENT: no acute distress, morbidly obese, well-developed, well-nourished, other - Chronically ill looking Head exam: PRESENT: atraumatic, normocephalic Eye exam: PRESENT: conjunctiva pink, EOMI, PERRLA. ABSENT: scleral icterus Ear exam: PRESENT: normal external ear exam Mouth exam: PRESENT: moist, tongue midline Neck exam: ABSENT: carotid bruit, JVD, lymphadenopathy, thyromegaly Respiratory exam: PRESENT: clear to auscultation shivani. ABSENT: rales, rhonchi, wheezes Cardiovascular exam: PRESENT: RRR, +S1, +S2. ABSENT: diastolic murmur, rubs, systolic murmur Pulses: PRESENT: normal dorsalis pedis pul Vascular exam: PRESENT: normal capillary refill GI/Abdominal exam: PRESENT: normal bowel sounds, soft. ABSENT: distended, guarding, mass, organolmegaly, rebound, tenderness Rectal exam: PRESENT: deferred Extremities exam: PRESENT: full ROM, pedal edema, +2 edema. ABSENT: calf tenderness, clubbing Neurological exam: PRESENT: alert, awake, oriented to person, oriented to place , oriented to situation, CN II-XII grossly intact. ABSENT: motor sensory deficit Psychiatric exam: PRESENT: normal mood. ABSENT: homicidal ideation, suicidal ideation Skin exam: PRESENT: dry, intact, warm. ABSENT: cyanosis, rash Results Laboratory Results: 05/26/18 04:31 05/26/18 04:31 05/26/18 05/26/18 04:31 04:31 WBC 4.4 RBC 2.89 L Hgb 8.0 L Hct 24.2 L MCV 84 MCH 27.5 MCHC 32.9 RDW 19.4 H Plt Count 142 L Seg Neutrophils % 54.9 Lymphocytes % 24.7 Monocytes % 15.2 H Eosinophils % 4.8 Basophils % 0.4 Absolute Neutrophils 2.4 Absolute Lymphocytes 1.1 Absolute Monocytes 0.7 Absolute Eosinophils 0.2 Absolute Basophils 0.0 Sodium 136.0 L Potassium 4.9 Chloride 96 L Carbon Dioxide 31 H Anion Gap 9 BUN 42 H Creatinine 1.82 H Est GFR ( Amer) 44 L Est GFR (Non-Af Amer) 37 L Glucose 87 Calcium 7.9 L 05/20/18 05/20/18 05/20/18 07:25 07:25 13:21 Creatine Kinase 43 L 38 L CK-MB (CK-2) 1.52 Troponin I 0.033 NT-Pro-B Natriuret Pep 05/20/18 05/26/18 13:21 04:31 Creatine Kinase CK-MB (CK-2) 1.14 Troponin I 0.029 NT-Pro-B Natriuret Pep 4770 H Impressions: Chest X-Ray 05/20/18 01:08 IMPRESSION: Cardiomegaly and CHF. Bibasilar pleural effusion and/or atelectasis and/or infiltrate, left side more apparent than right. 2010 [employer]- All Rights Reserved Assessment & Plan - Diagnosis (1) ARF (acute renal failure) Qualifiers: Acute renal failure type: unspecified Qualified Code(s): N17.9 - Acute kidney failure, unspecified Is this a current diagnosis for this admission?: Yes Plan: Kidney function continues to improve. We will continue with judicious diuresis (2) Acute and chronic respiratory failure Qualifiers: Respiratory failure complication: hypoxia Qualified Code(s): J96.21 - Acute and chronic respiratory failure with hypoxia Is this a current diagnosis for this admission?: Yes Plan: Appears to be at baseline (3) Anemia due to chronic kidney disease Qualifiers: Chronic kidney disease stage: stage 4 (severe) Qualified Code(s): N18.4 - Chronic kidney disease, stage 4 (severe); D63.1 - Anemia in chronic kidney disease; D63.1 - Anemia in chronic kidney disease Is this a current diagnosis for this admission?: Yes Plan: Hemoglobin is stable at 8. 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 Is this a current diagnosis for this admission?: Yes - Time Time Spent with patient: 15-24 minutes Medications reviewed and adjusted accordingly: Yes Anticipated discharge: SNF Within: when bed available - Inpatient Certification Based on my medical assessment, after consideration of the patient's comorbidities, presenting symptoms, or acuity I expect that the services needed warrant INPATIENT care.: Yes Medical Necessity: Need For Continuous Telemetry Monitoring, Risk of Complication if Not Cared For in Hospital - Plan Summary Plan Summary: Family is requesting for another care home as they feel the patient's presenting symptom was somehow the fourth of the care home and was in
[2018-05-26] MEDS: ATORVASTATIN CALCIUM 40 MG TABLET PO SCH (21:54)
[2018-05-27] MEDS: OXYCODONE-ACETAMINOPHEN 5-325 MG TABLET PO PRN ×3 (03:10→18:45)
[2018-05-27] MEDS: CARVEDILOL 3.125 MG TABLET PO SCH ×2 (09:17→21:55)
[2018-05-27] MEDS: APIXABAN 5 MG TABLET PO SCH ×2 (09:17→21:55)
[2018-05-27] MEDS: ASPIRIN 81 MG TABLET, ENT COATED PO SCH (09:17)
[2018-05-27] MEDS: FUROSEMIDE INJ/PF 40 MG/4 ML SDV IV SCH (09:17)
[2018-05-27] MEDS: FLUTICASONE/SALMETEROL DISKUS 250-50 MCG/DOSE IH SCH ×2 (09:17→21:53)
[2018-05-27] MEDS: LISINOPRIL 5 MG TABLET PO SCH (09:17)
[2018-05-27] MEDS: SERTRALINE HCL 50 MG TABLET PO SCH (09:18)
--- NOTE | 2018-05-27 12:25 | PDOC PROGRESS REPORT ---
Subjective Progress Note for:: 05/27/18 Subjective:: The patient is resting in the chair. He appears comfortable. He states that he feels "okay ". He does complain about the chronic swelling in his legs and the bolus weeping lesions. These are chronic issue for the patient. Reason For Visit: ARF, SUNNY, ANEMIA, HEART FAILURE Physical Exam Vital Signs: Temp Pulse Resp BP Pulse Ox 98.6 F 60 17 121/60 100 05/27/18 07:28 05/27/18 07:28 05/27/18 07:28 05/27/18 07:28 05/27/18 07:28 Intake & Output 05/26/18 05/27/18 05/28/18 06:59 06:59 06:59 Intake Total 998 922 Output Total 1175 1450 Balance -177 -528 Weight 132 kg General appearance: PRESENT: no acute distress, cooperative, morbidly obese - BMI 41.8, well-developed Head exam: PRESENT: atraumatic, normocephalic Eye exam: PRESENT: conjunctiva pale. ABSENT: periorbital swelling, scleral icterus Ear exam: PRESENT: normal external ear exam Mouth exam: PRESENT: moist, tongue midline Neck exam: ABSENT: carotid bruit, lymphadenopathy Respiratory exam: PRESENT: clear to auscultation shivani - He does have distant breath sounds bilaterally, symmetrical, unlabored. ABSENT: rales - I did not appreciate any rales today., wheezes Cardiovascular exam: PRESENT: RRR, +S1, +S2, systolic murmur - 3/6 murmur GI/Abdominal exam: PRESENT: distended - Protuberant abdomen, normal bowel sounds , soft. ABSENT: tenderness Extremities exam: PRESENT: other - 3+ edema bilateral lower extremities Neurological exam: PRESENT: alert, awake, oriented to person, oriented to place , oriented to situation, CN II-XII grossly intact Psychiatric exam: PRESENT: flat affect. ABSENT: agitated, unusual affect Focused psych exam: ABSENT: restlessness Results Laboratory Results: 05/26/18 04:31 05/26/18 04:31 05/20/18 05/20/18 05/20/18 07:25 07:25 13:21 Creatine Kinase 43 L 38 L CK-MB (CK-2) 1.52 Troponin I 0.033 NT-Pro-B Natriuret Pep 05/20/18 05/26/18 13:21 04:31 Creatine Kinase CK-MB (CK-2) 1.14 Troponin I 0.029 NT-Pro-B Natriuret Pep 4770 H Impressions: Chest X-Ray 05/20/18 01:08 IMPRESSION: Cardiomegaly and CHF. Bibasilar pleural effusion and/or atelectasis and/or infiltrate, left side more apparent than right. 2010 [employer]- All Rights Reserved Assessment & Plan - Diagnosis (1) Acute renal failure superimposed on stage 3 chronic kidney disease Is this a current diagnosis for this admission?: Yes Plan: Continue gentle diuresis. His GFR continues to improve slowly. It was 37 today. (2) CHF exacerbation Qualifiers: Heart failure type: unspecified Qualified Code(s): I50.43 - Acute on chronic combined systolic (congestive) and diastolic (congestive) heart failure Is this a current diagnosis for this admission?: Yes Plan: Continue his cardiac medications and gentle diuresis. He is on furosemide 40 mg once daily. This is a chronic issue for the patient and has been the source of multiple admissions. Continue other cardiac medications as well. (3) Anemia due to chronic kidney disease Qualifiers: Chronic kidney disease stage: stage 3 (moderate) Qualified Code(s): N18.3 - Chronic kidney disease, stage 3 (moderate); D63.1 - Anemia in chronic kidney disease; D63.1 - Anemia in chronic kidney disease Is this a current diagnosis for this admission?: Yes Plan: The patient's hemoglobin has stayed above 8.0. Considering his failure and multiple core mobilities he would be a good candidate for transfusion if his hemoglobin drops below 8.0. (4) Obesity hypoventilation syndrome Is this a current diagnosis for this admission?: Yes Plan: The patient exhibits morbid obesity with a BMI of 41.8. This is a contributing factor to his chronic respiratory issues. (5) Opiate dependence, continuous Is this a current diagnosis for this admission?: Yes
[2018-05-27] MEDS: ATORVASTATIN CALCIUM 40 MG TABLET PO SCH (21:55)
[2018-05-28] MEDS: OXYCODONE-ACETAMINOPHEN 5-325 MG TABLET PO PRN ×5 (00:48→23:51)
[2018-05-28 05:36] LABS: HEMATOCRIT 23.6 % (37.9-51.0); MEAN CORPUSCULAR HEMOGLOBIN 27.1 pg (27.0-33.4); MEAN CORPUSCULAR HGB CONC 31.9 g/dL (32.0-36.0); MEAN CORPUSCULAR VOLUME 85 fl (80-97); PLATELET COUNT 120 10^3/uL (150-450); RED BLOOD COUNT 2.78 10^6/uL (4.35-5.55); RED CELL DISTRIBUTION WIDTH 19.4 % (11.5-14.0); WHITE BLOOD COUNT 4.2 10^3/uL (4.0-10.5)
[2018-05-28 05:52] LABS: HEMOGLOBIN 7.5 g/dL (13.5-17.0)
[2018-05-28 05:57] LABS: ANION GAP 9 (5-19); BLOOD UREA NITROGEN 44 mg/dL (7-20); CALCIUM 8.2 mg/dL (8.4-10.2); CARBON DIOXIDE 33 mmol/L (22-30); CHLORIDE 96 mmol/L (98-107); GLUCOSE 85 mg/dL (75-110); PHOSPHORUS 3.6 mg/dL (2.5-4.5); POTASSIUM 5.2 mmol/L (3.6-5.0); SODIUM 138.4 mmol/L (137-145)
[2018-05-28] MEDS: FLUTICASONE/SALMETEROL DISKUS 250-50 MCG/DOSE IH SCH ×2 (09:19→21:19)
[2018-05-28] MEDS: FUROSEMIDE INJ/PF 40 MG/4 ML SDV IV SCH (09:19)
[2018-05-28] MEDS: CARVEDILOL 3.125 MG TABLET PO SCH ×2 (09:20→21:15)
[2018-05-28] MEDS: ASPIRIN 81 MG TABLET, ENT COATED PO SCH (09:20)
[2018-05-28] MEDS: LISINOPRIL 5 MG TABLET PO SCH (09:20)
[2018-05-28] MEDS: APIXABAN 5 MG TABLET PO SCH ×2 (09:20→21:20)
[2018-05-28] MEDS: SERTRALINE HCL 50 MG TABLET PO SCH (09:20)
[2018-05-28] MEDS ORDERED: NORMAL SALINE 250 ML IV PRN ×3 (10:09→10:12)
[2018-05-28] MEDS ORDERED: SODIUM POLYSTYRENE SULFONATE 15 GM/60 ML PO ONE (10:11)
[2018-05-28] MEDS ORDERED: FUROSEMIDE 20 MG TABLET PO PRN (10:12)
--- NOTE | 2018-05-28 10:23 | PDOC PROGRESS REPORT ---
Subjective Progress Note for:: 05/28/18 Subjective:: 05/27/2018-the patient is resting in the chair. He appears comfortable. He states that he feels "okay ". He does complain about the chronic swelling in his legs and the bolus weeping lesions. These are chronic issue for the patient. May 28, 2018-the patient is feeling slightly better but still sluggish. Reason For Visit: ARF, SUNNY, ANEMIA, HEART FAILURE Physical Exam Vital Signs: Temp Pulse Resp BP Pulse Ox 98.3 F 58 L 14 117/61 98 05/28/18 08:00 05/28/18 08:00 05/28/18 08:20 05/28/18 08:00 05/28/18 08:20 Intake & Output 05/27/18 05/28/18 05/29/18 06:59 06:59 06:59 Intake Total 922 400 Output Total 1450 1700 Balance -528 -1300 Weight 132 kg 134 kg General appearance: PRESENT: no acute distress, cooperative, morbidly obese - Body mass index 42.4, well-developed Head exam: PRESENT: atraumatic, normocephalic Eye exam: PRESENT: conjunctiva pale. ABSENT: scleral icterus Mouth exam: PRESENT: moist, tongue midline Respiratory exam: PRESENT: clear to auscultation shivani - Distant breath sounds bilaterally, rales - Faint at bases, symmetrical, unlabored. ABSENT: rhonchi, stridor, wheezes Cardiovascular exam: PRESENT: RRR, +S1, +S2 GI/Abdominal exam: PRESENT: normal bowel sounds, soft. ABSENT: distended, guarding, tenderness Extremities exam: PRESENT: pedal edema Neurological exam: PRESENT: alert, awake, oriented to person, oriented to place , oriented to situation Psychiatric exam: PRESENT: flat affect Results Laboratory Results: 05/28/18 04:57 05/28/18 04:57 05/28/18 05/28/18 04:57 04:57 WBC 4.2 RBC 2.78 L Hgb 7.5 L Hct 23.6 L MCV 85 MCH 27.1 MCHC 31.9 L RDW 19.4 H Plt Count 120 L Sodium 138.4 Potassium 5.2 H Chloride 96 L Carbon Dioxide 33 H Anion Gap 9 BUN 44 H Creatinine 1.77 H Est GFR ( Amer) 46 L Est GFR (Non-Af Amer) 38 L Glucose 85 Calcium 8.2 L Phosphorus 3.6 Albumin 3.0 L 05/20/18 05/20/18 05/20/18 07:25 07:25 13:21 Creatine Kinase 43 L 38 L CK-MB (CK-2) 1.52 Troponin I 0.033 NT-Pro-B Natriuret Pep 05/20/18 05/26/18 05/28/18 13:21 04:31 04:57 Creatine Kinase CK-MB (CK-2) 1.14 Troponin I 0.029 NT-Pro-B Natriuret Pep 4770 H 5230 H Impressions: Chest X-Ray 05/20/18 01:08 IMPRESSION: Cardiomegaly and CHF. Bibasilar pleural effusion and/or atelectasis and/or infiltrate, left side more apparent than right. 2010 [employer]- All Rights Reserved Assessment & Plan - Diagnosis (1) Acute renal failure superimposed on stage 3 chronic kidney disease Is this a current diagnosis for this admission?: Yes Plan: 05/27/2018-continue gentle diuresis. His GFR continues to improve slowly. It was 37 today. Number second 2017-GFR is stable between 30 and 40. Continue current regimen. Monitor renal function. (2) CHF exacerbation Qualifiers: Heart failure type: unspecified Qualified Code(s): I50.9 - Heart failure, unspecified Is this a current diagnosis for this admission?: Yes Plan: 05/27/2018-continue his cardiac medications and gentle diuresis. He is on furosemide 40 mg once daily. This is a chronic issue for the patient and has been the source of multiple admissions. Continue other cardiac medications as well. May 28, 2018-the patient is comfortable. His hemoglobin is low. He is going to get a unit of packed red blood cells with 20 mg of Lasix following the transfusion. This should also help with his congestive failure. (3) Anemia due to chronic kidney disease Qualifiers: Chronic kidney disease stage: stage 3 (moderate) Qualified Code(s): N18.3 - Chronic kidney disease, stage 3 (moderate); D63.1 - Anemia in chronic kidney disease; D63.1 - Anemia in chronic kidney disease Is this a current diagnosis for this admission?: Yes Plan: 05/27/2018-the patient's hemoglobin has stayed above 8.0. Considering his failure and multiple core mobilities he would be a good candidate for transfusion if his hemoglobin drops below 8.0. May 28, 2018-as noted above his hemoglobin is less than 8.0 and he will receive 1 unit of packed red blood cells today. (4) Obesity hypoventilation syndrome Is this a current diagnosis for this admission?: Yes Plan: The patient exhibits morbid obesity with a BMI of 41.8. This is a contributing factor to his chronic respiratory issues. No change in treatment plan at this time. (5) Opiate dependence, continuous Is this a current diagnosis for this admission?: Yes Plan: May 28, 2018-continue current regimen. No changes in the medications at this time. The patient does appear to have good pain control. (6) Morbid obesity with BMI of 40.0-44.9, adult Is this a current diagnosis for this admission?: Yes Plan: May 28, 2018-continue current cardiac diet with controlled carbohydrates and low potassium. (7) Hyperkalemia Is this a current diagnosis for this admission?: Yes Plan: May 28, 2018-the patient's potassium is just above normal today. I am going to change him to a low potassium diet. This is likely a combination of diuresis and KELSEY inhibitor therapy along with his chronic kidney disease. A single dose should get him back into the normal range and a low potassium diet should keep him there. - Time Time Spent with patient: 25-34 minutes Medications reviewed and adjusted accordingly: Yes
[2018-05-28 16:55] LABS: ABSOLUTE EOSINOPHILS # (AUTO) 0.2 10^3/uL (0.0-0.6); ABSOLUTE LYMPHOCYTES (AUTO) 1.1 10^3/uL (0.5-4.7); ABSOLUTE MONOCYTES (AUTO) 0.5 10^3/uL (0.1-1.4); ABSOLUTE NEUT (AUTO) 2.2 10^3/uL (1.7-8.2); BASOPHILS % (AUTO) 0.6 % (0-2); HEMATOCRIT 24.5 % (37.9-51.0); LYMPHOCYTES % (AUTO) 27.2 % (13-45); MEAN CORPUSCULAR HEMOGLOBIN 27.6 pg (27.0-33.4); MEAN CORPUSCULAR HGB CONC 32.4 g/dL (32.0-36.0); MEAN CORPUSCULAR VOLUME 85 fl (80-97); MONOCYTES % (AUTO) 12.1 % (3-13); PLATELET COUNT 125 10^3/uL (150-450); RED BLOOD COUNT 2.88 10^6/uL (4.35-5.55); RED CELL DISTRIBUTION WIDTH 18.9 % (11.5-14.0); SEGMENTED NEUTROPHILS % (AUTO) 55.1 % (42-78); TOTAL CELLS COUNTED % (AUTO) 100 %
[2018-05-28 17:23] LABS: HEMOGLOBIN 7.9 g/dL (13.5-17.0)
[2018-05-28] MEDS ORDERED: FUROSEMIDE INJ/PF 20 MG/2 ML SDV IV PRN (17:52)
[2018-05-28] MEDS: ATORVASTATIN CALCIUM 40 MG TABLET PO SCH (21:20)
[2018-05-28 22:48] LABS: HEMOGLOBIN 8.9 g/dL (13.5-17.0); MEAN CORPUSCULAR HEMOGLOBIN 28.1 pg (27.0-33.4); MEAN CORPUSCULAR HGB CONC 33.1 g/dL (32.0-36.0); MEAN CORPUSCULAR VOLUME 85 fl (80-97); PLATELET COUNT 137 10^3/uL (150-450); RED BLOOD COUNT 3.18 10^6/uL (4.35-5.55); RED CELL DISTRIBUTION WIDTH 18.6 % (11.5-14.0); WHITE BLOOD COUNT 4.8 10^3/uL (4.0-10.5)
[2018-05-29 06:26] LABS: HEMOGLOBIN 8.3 g/dL (13.5-17.0); MEAN CORPUSCULAR HEMOGLOBIN 28.1 pg (27.0-33.4); MEAN CORPUSCULAR HGB CONC 33.2 g/dL (32.0-36.0); MEAN CORPUSCULAR VOLUME 85 fl (80-97); PLATELET COUNT 123 10^3/uL (150-450); RED BLOOD COUNT 2.95 10^6/uL (4.35-5.55); RED CELL DISTRIBUTION WIDTH 18.5 % (11.5-14.0); WHITE BLOOD COUNT 4.3 10^3/uL (4.0-10.5)
[2018-05-29 06:48] LABS: ANION GAP 8 (5-19); BLOOD UREA NITROGEN 46 mg/dL (7-20); CARBON DIOXIDE 36 mmol/L (22-30); CHLORIDE 95 mmol/L (98-107); GLUCOSE 86 mg/dL (75-110); POTASSIUM 4.6 mmol/L (3.6-5.0); SODIUM 139.1 mmol/L (137-145)
[2018-05-29] MEDS: OXYCODONE-ACETAMINOPHEN 5-325 MG TABLET PO PRN ×3 (09:49→19:12)
[2018-05-29] MEDS: CARVEDILOL 3.125 MG TABLET PO SCH ×2 (09:50→22:18)
[2018-05-29] MEDS: LISINOPRIL 5 MG TABLET PO SCH (09:50)
[2018-05-29] MEDS: ASPIRIN 81 MG TABLET, ENT COATED PO SCH (09:50)
[2018-05-29] MEDS: APIXABAN 5 MG TABLET PO SCH ×2 (09:50→22:18)
[2018-05-29] MEDS: FUROSEMIDE INJ/PF 40 MG/4 ML SDV IV SCH (09:51)
[2018-05-29] MEDS: FLUTICASONE/SALMETEROL DISKUS 250-50 MCG/DOSE IH SCH ×2 (09:51→22:19)
[2018-05-29] MEDS: SERTRALINE HCL 50 MG TABLET PO SCH (09:51)
--- NOTE | 2018-05-29 21:27 | PDOC PROGRESS REPORT ---
Subjective Progress Note for:: 05/29/18 Subjective:: 05/27/2018-the patient is resting in the chair. He appears comfortable. He states that he feels "okay ". He does complain about the chronic swelling in his legs and the bolus weeping lesions. These are chronic issue for the patient. May 28, 2018-the patient is feeling slightly better but still sluggish. 05/29/2018-the patient is napping in the chair. His son is laying in the bed. He appears to be comfortable. Reason For Visit: ARF, SUNNY, ANEMIA, HEART FAILURE Physical Exam Vital Signs: Temp Pulse Resp BP Pulse Ox 97.9 F 61 16 96/54 L 100 05/29/18 21:01 05/29/18 21:01 05/29/18 21:01 05/29/18 21:01 05/29/18 21:01 Intake & Output 05/28/18 05/29/18 05/30/18 06:59 06:59 06:59 Intake Total 400 1886 711 Output Total 1700 2275 1250 Balance -1300 -389 -539 Weight 134 kg 131.6 kg General appearance: PRESENT: no acute distress, disheveled, morbidly obese, well -developed Head exam: PRESENT: atraumatic, normocephalic Respiratory exam: PRESENT: clear to auscultation shivani, symmetrical, unlabored. ABSENT: rales, rhonchi, wheezes Cardiovascular exam: PRESENT: RRR, +S1, +S2 GI/Abdominal exam: PRESENT: distended - Protuberant abdomen, normal bowel sounds , soft. ABSENT: guarding, tenderness Extremities exam: PRESENT: +2 edema Neurological exam: PRESENT: awake. ABSENT: alert - Slightly sleepy. He was just napping. Psychiatric exam: PRESENT: appropriate affect, normal mood Results Laboratory Results: 05/29/18 05:10 05/29/18 05:10 05/28/18 05/29/18 05/29/18 22:30 05:10 05:10 WBC 4.8 4.3 RBC 3.18 L 2.95 L Hgb 8.9 L 8.3 L Hct 27.0 L 25.0 L MCV 85 85 MCH 28.1 28.1 MCHC 33.1 33.2 RDW 18.6 H 18.5 H Plt Count 137 L 123 L Sodium 139.1 Potassium 4.6 Chloride 95 L Carbon Dioxide 36 H Anion Gap 8 BUN 46 H Creatinine 1.69 H Est GFR ( Amer) 48 L Est GFR (Non-Af Amer) 40 L Glucose 86 Calcium 8.0 L Magnesium 2.1 05/20/18 05/20/18 05/20/18 07:25 07:25 13:21 Creatine Kinase 43 L 38 L CK-MB (CK-2) 1.52 Troponin I 0.033 NT-Pro-B Natriuret Pep 05/20/18 05/26/18 05/28/18 13:21 04:31 04:57 Creatine Kinase CK-MB (CK-2) 1.14 Troponin I 0.029 NT-Pro-B Natriuret Pep 4770 H 5230 H Impressions: Chest X-Ray 05/20/18 01:08 IMPRESSION: Cardiomegaly and CHF. Bibasilar pleural effusion and/or atelectasis and/or infiltrate, left side more apparent than right. 2010 [employer]- All Rights Reserved Assessment & Plan - Diagnosis (1) Acute renal failure superimposed on stage 3 chronic kidney disease Is this a current diagnosis for this admission?: Yes Plan: 05/27/2018-continue gentle diuresis. His GFR continues to improve slowly. It was 37 today. 05/28/2018-GFR is stable between 30 and 40. Continue current regimen. Monitor renal function. 05/29/2018-the patient is maintaining baseline renal function despite his diuresis. I believe the transfusion helped as well. (2) CHF exacerbation Qualifiers: Heart failure type: unspecified Qualified Code(s): I50.9 - Heart failure, unspecified Is this a current diagnosis for this admission?: Yes Plan: 05/27/2018-continue his cardiac medications and gentle diuresis. He is on furosemide 40 mg once daily. This is a chronic issue for the patient and has been the source of multiple admissions. Continue other cardiac medications as well. May 28, 2018-the patient is comfortable. His hemoglobin is low. He is going to get a unit of packed red blood cells with 20 mg of Lasix following the transfusion. This should also help with his congestive failure. 05/29/2018-continue diuresis. Transfusion of 2 units of packed red blood cells was helpful. The patient does report feeling better. (3) Anemia due to chronic kidney disease Qualifiers: Chronic kidney disease stage: stage 3 (moderate) Qualified Code(s): N18.3 - Chronic kidney disease, stage 3 (moderate); D63.1 - Anemia in chronic kidney disease; D63.1 - Anemia in chronic kidney disease Is this a current diagnosis for this admission?: Yes Plan: 05/27/2018-the patient's hemoglobin has stayed above 8.0. Considering his failure and multiple core mobilities he would be a good candidate for transfusion if his hemoglobin drops below 8.0. May 28, 2018-as noted above his hemoglobin is less than 8.0 and he will receive 1 unit of packed red blood cells today. 05/29/18-a total of 2 units of packed red blood cells were given yesterday. (4) Obesity hypoventilation syndrome Is this a current diagnosis for this admission?: Yes Plan: The patient exhibits morbid obesity with a BMI of 41.8. This is a contributing factor to his chronic respiratory issues. No change in treatment plan at this time. (5) Opiate dependence, continuous Is this a current diagnosis for this admission?: Yes Plan: May 28, 2018-continue current regimen. No changes in the medications at this time. The patient does appear to have good pain control. 05/29/2018-because of consistent complaints of pain the analgesia was increased slightly. (6) Morbid obesity with BMI of 40.0-44.9, adult Is this a current diagnosis for this admission?: Yes Plan: May 28, 2018-continue current cardiac diet with controlled carbohydrates and low potassium. (7) Hyperkalemia Is this a current diagnosis for this admission?: Yes Plan: May 28, 2018-the patient's potassium is just above normal today. I am going to change him to a low potassium diet. This is likely a combination of diuresis and KELSEY inhibitor therapy along with his chronic kidney disease. A single dose should get him back into the normal range and a low potassium diet should keep him there. 05/29/2018-potassium is back in the normal range today. - Time Time Spent with patient: 25-34 minutes Medications reviewed and adjusted accordingly: Yes
[2018-05-29] MEDS: ATORVASTATIN CALCIUM 40 MG TABLET PO SCH (22:18)
[2018-05-30] MEDS: LISINOPRIL 5 MG TABLET PO SCH (10:04)
[2018-05-30] MEDS: FUROSEMIDE INJ/PF 40 MG/4 ML SDV IV SCH (10:04)
[2018-05-30] MEDS: SERTRALINE HCL 50 MG TABLET PO SCH (10:05)
[2018-05-30] MEDS: CARVEDILOL 3.125 MG TABLET PO SCH ×2 (10:05→21:52)
[2018-05-30] MEDS: FLUTICASONE/SALMETEROL DISKUS 250-50 MCG/DOSE IH SCH ×2 (10:05→22:10)
[2018-05-30] MEDS: APIXABAN 5 MG TABLET PO SCH ×2 (10:05→21:52)
[2018-05-30] MEDS: ASPIRIN 81 MG TABLET, ENT COATED PO SCH (10:05)
[2018-05-30] MEDS: OXYCODONE-ACETAMINOPHEN 5-325 MG TABLET PO PRN ×2 (14:27→19:05)
--- NOTE | 2018-05-30 20:35 | PDOC PROGRESS REPORT ---
Subjective Progress Note for:: 05/30/18 Subjective:: 05/27/2018-the patient is resting in the chair. He appears comfortable. He states that he feels "okay ". He does complain about the chronic swelling in his legs and the bolus weeping lesions. These are chronic issue for the patient. May 28, 2018-the patient is feeling slightly better but still sluggish. 05/29/2018-the patient is napping in the chair. His son is laying in the bed. He appears to be comfortable. 05/30/2018-no complaints this evening. Feeling somewhat better again today. Reason For Visit: ARF, SNUNY, ANEMIA, HEART FAILURE Physical Exam Vital Signs: Temp Pulse Resp BP Pulse Ox 97.8 F 60 16 101/47 L 99 05/30/18 15:31 05/30/18 19:00 05/30/18 15:31 05/30/18 15:31 05/30/18 15:31 Intake & Output 05/29/18 05/30/18 05/31/18 06:59 06:59 06:59 Intake Total 1886 1111 177 Output Total 2275 1875 750 Balance -389 -764 -573 Weight 131.6 kg General appearance: PRESENT: no acute distress, well-developed Respiratory exam: PRESENT: clear to auscultation shivani - With decreased breath sounds at bases. ABSENT: accessory muscle use, rales, rhonchi, wheezes Cardiovascular exam: PRESENT: RRR, +S1, +S2, systolic murmur GI/Abdominal exam: PRESENT: distended - Protuberant abdomen, normal bowel sounds , soft. ABSENT: guarding, tenderness Extremities exam: PRESENT: +2 edema Neurological exam: PRESENT: alert, awake, oriented to person, oriented to place , oriented to time, oriented to situation Psychiatric exam: PRESENT: appropriate affect, normal mood Skin exam: PRESENT: erythema - Feet secondary to venous insufficiency Results Laboratory Results: 05/29/18 05:10 05/29/18 05:10 05/20/18 05/20/18 05/20/18 07:25 07:25 13:21 Creatine Kinase 43 L 38 L CK-MB (CK-2) 1.52 Troponin I 0.033 NT-Pro-B Natriuret Pep 05/20/18 05/26/18 05/28/18 13:21 04:31 04:57 Creatine Kinase CK-MB (CK-2) 1.14 Troponin I 0.029 NT-Pro-B Natriuret Pep 4770 H 5230 H Impressions: Chest X-Ray 05/20/18 01:08 IMPRESSION: Cardiomegaly and CHF. Bibasilar pleural effusion and/or atelectasis and/or infiltrate, left side more apparent than right. 2010 [employer]- All Rights Reserved Assessment & Plan - Diagnosis (1) Acute renal failure superimposed on stage 3 chronic kidney disease Is this a current diagnosis for this admission?: Yes Plan: 05/27/2018-continue gentle diuresis. His GFR continues to improve slowly. It was 37 today. 05/28/2018-GFR is stable between 30 and 40. Continue current regimen. Monitor renal function. 05/29/2018-the patient is maintaining baseline renal function despite his diuresis. I believe the transfusion helped as well. 05/30/2018-we will continue to monitor renal function with the addition of Entresto and discontinuation of lisinopril. (2) CHF exacerbation Qualifiers: Heart failure type: unspecified Qualified Code(s): I50.9 - Heart failure, unspecified Is this a current diagnosis for this admission?: Yes Plan: 05/27/2018-continue his cardiac medications and gentle diuresis. He is on furosemide 40 mg once daily. This is a chronic issue for the patient and has been the source of multiple admissions. Continue other cardiac medications as well. May 28, 2018-the patient is comfortable. His hemoglobin is low. He is going to get a unit of packed red blood cells with 20 mg of Lasix following the transfusion. This should also help with his congestive failure. 05/29/2018-continue diuresis. Transfusion of 2 units of packed red blood cells was helpful. The patient does report feeling better. 05/30/2018-patient appears stable. Certainly no decline. Each day he seems to feel better. (3) Anemia due to chronic kidney disease Qualifiers: Chronic kidney disease stage: stage 3 (moderate) Qualified Code(s): N18.3 - Chronic kidney disease, stage 3 (moderate); D63.1 - Anemia in chronic kidney disease; D63.1 - Anemia in chronic kidney disease Is this a current diagnosis for this admission?: Yes Plan: 05/27/2018-the patient's hemoglobin has stayed above 8.0. Considering his failure and multiple core mobilities he would be a good candidate for transfusion if his hemoglobin drops below 8.0. May 28, 2018-as noted above his hemoglobin is less than 8.0 and he will receive 1 unit of packed red blood cells today. 05/29/18-a total of 2 units of packed red blood cells were given yesterday. 05/30/2018-hemoglobin is drifting down again. We will continue to monitor. Hopefully he will maintain above 8.0 after the 2 units of packed red blood cells. (4) Obesity hypoventilation syndrome Is this a current diagnosis for this admission?: Yes (5) Opiate dependence, continuous Is this a current diagnosis for this admission?: Yes Plan: May 28, 2018-continue current regimen. No changes in the medications at this time. The patient does appear to have good pain control. 05/29/2018-because of consistent complaints of pain the analgesia was increased slightly. 05/30/2018-continue current analgesic regimen. (6) Morbid obesity with BMI of 40.0-44.9, adult Is this a current diagnosis for this admission?: Yes (7) Hyperkalemia Is this a current diagnosis for this admission?: Yes Plan: May 28, 2018-the patient's potassium is just above normal today. I am going to change him to a low potassium diet. This is likely a combination of diuresis and KELSEY inhibitor therapy along with his chronic kidney disease. A single dose should get him back into the normal range and a low potassium diet should keep him there. 05/29/2018-potassium is back in the normal range today. 05/30/2018-recheck labs tomorrow. - Time Time Spent with patient: 15-24 minutes Medications reviewed and adjusted accordingly: Yes
[2018-05-30] MEDS: ATORVASTATIN CALCIUM 40 MG TABLET PO SCH (21:52)
[2018-05-31] MEDS: OXYCODONE-ACETAMINOPHEN 5-325 MG TABLET PO PRN ×4 (01:29→19:51)
[2018-05-31 05:01] LABS: HEMOGLOBIN 8.4 g/dL (13.5-17.0); MEAN CORPUSCULAR HEMOGLOBIN 27.5 pg (27.0-33.4); MEAN CORPUSCULAR HGB CONC 32.4 g/dL (32.0-36.0); MEAN CORPUSCULAR VOLUME 85 fl (80-97); PLATELET COUNT 141 10^3/uL (150-450); RED BLOOD COUNT 3.07 10^6/uL (4.35-5.55); RED CELL DISTRIBUTION WIDTH 18.7 % (11.5-14.0); WHITE BLOOD COUNT 4.2 10^3/uL (4.0-10.5)
[2018-05-31 05:25] LABS: ANION GAP 11 (5-19); BLOOD UREA NITROGEN 48 mg/dL (7-20); CALCIUM 8.4 mg/dL (8.4-10.2); CARBON DIOXIDE 33 mmol/L (22-30); CHLORIDE 97 mmol/L (98-107); GLUCOSE 96 mg/dL (75-110); POTASSIUM 4.7 mmol/L (3.6-5.0); SODIUM 140.5 mmol/L (137-145)
[2018-05-31] MEDS: FLUTICASONE/SALMETEROL DISKUS 250-50 MCG/DOSE IH SCH ×2 (09:53→22:31)
[2018-05-31] MEDS: APIXABAN 5 MG TABLET PO SCH ×2 (09:54→22:30)
[2018-05-31] MEDS: CARVEDILOL 3.125 MG TABLET PO SCH ×2 (09:54→22:30)
[2018-05-31] MEDS: FUROSEMIDE INJ/PF 40 MG/4 ML SDV IV SCH (09:54)
[2018-05-31] MEDS: ASPIRIN 81 MG TABLET, ENT COATED PO SCH (09:54)
[2018-05-31] MEDS: SERTRALINE HCL 50 MG TABLET PO SCH (09:54)
[2018-05-31] MEDS ORDERED: VALSARTAN 40 MG TABLET PO ONE (10:00)
--- NOTE | 2018-05-31 11:44 | PDOC PROGRESS REPORT ---
Subjective Progress Note for:: 05/31/18 Subjective:: 05/27/2018-the patient is resting in the chair. He appears comfortable. He states that he feels "okay ". He does complain about the chronic swelling in his legs and the bolus weeping lesions. These are chronic issue for the patient. May 28, 2018-the patient is feeling slightly better but still sluggish. 05/29/2018-the patient is napping in the chair. His son is laying in the bed. He appears to be comfortable. 05/30/2018-no complaints this evening. Feeling somewhat better again today. 05/31/2018-patient is sleeping in the chair. His son is sleeping in the bed. He awakens easily. He is appropriate. He has no new complaints. Reason For Visit: ARF, SUNNY, ANEMIA, HEART FAILURE Physical Exam Vital Signs: Temp Pulse Resp BP Pulse Ox 97.5 F 60 20 100/49 L 92 05/31/18 08:19 05/31/18 08:19 05/31/18 08:19 05/31/18 08:19 05/31/18 08:19 Intake & Output 05/30/18 05/31/18 06/01/18 06:59 06:59 06:59 Intake Total 1111 177 Output Total 1875 1150 Balance -764 -973 Weight 134.6 kg General appearance: PRESENT: no acute distress, morbidly obese, well-developed Mouth exam: PRESENT: moist, tongue midline Respiratory exam: PRESENT: clear to auscultation shivani - But decreased at bases, symmetrical, unlabored. ABSENT: rhonchi, wheezes Cardiovascular exam: PRESENT: RRR - With irregular beats, +S1, +S2, systolic murmur - 2/6 GI/Abdominal exam: PRESENT: distended - Protuberant, normal bowel sounds, soft. ABSENT: guarding, tenderness Extremities exam: PRESENT: +2 edema Neurological exam: PRESENT: alert, awake, oriented to person, oriented to place , oriented to situation Skin exam: PRESENT: other - Dressing on left leg with underlying weeping ulcer Results Laboratory Results: 05/31/18 04:50 05/31/18 04:50 05/31/18 05/31/18 04:50 04:50 WBC 4.2 RBC 3.07 L Hgb 8.4 L Hct 26.0 L MCV 85 MCH 27.5 MCHC 32.4 RDW 18.7 H Plt Count 141 L Sodium 140.5 Potassium 4.7 Chloride 97 L Carbon Dioxide 33 H Anion Gap 11 BUN 48 H Creatinine 1.64 H Est GFR ( Amer) 50 L Est GFR (Non-Af Amer) 41 L Glucose 96 Calcium 8.4 Magnesium 2.0 05/20/18 05/20/18 05/20/18 07:25 07:25 13:21 Creatine Kinase 43 L 38 L CK-MB (CK-2) 1.52 Troponin I 0.033 NT-Pro-B Natriuret Pep 05/20/18 05/26/18 05/28/18 13:21 04:31 04:57 Creatine Kinase CK-MB (CK-2) 1.14 Troponin I 0.029 NT-Pro-B Natriuret Pep 4770 H 5230 H 05/31/18 04:50 Creatine Kinase CK-MB (CK-2) Troponin I NT-Pro-B Natriuret Pep 4280 H Impressions: Chest X-Ray 05/20/18 01:08 IMPRESSION: Cardiomegaly and CHF. Bibasilar pleural effusion and/or atelectasis and/or infiltrate, left side more apparent than right. 2010 [employer]- All Rights Reserved Assessment & Plan - Diagnosis (1) Acute renal failure superimposed on stage 3 chronic kidney disease Is this a current diagnosis for this admission?: Yes Plan: 05/27/2018-continue gentle diuresis. His GFR continues to improve slowly. It was 37 today. 05/28/2018-GFR is stable between 30 and 40. Continue current regimen. Monitor renal function. 05/29/2018-the patient is maintaining baseline renal function despite his diuresis. I believe the transfusion helped as well. 05/30/2018-we will continue to monitor renal function with the addition of Entresto and discontinuation of lisinopril. 05/31/2018-renal function, in fact has slowly improved during his hospitalization. We will continue to monitor without changes in his fluid restriction or diuretics. (2) CHF exacerbation Qualifiers: Heart failure type: unspecified Qualified Code(s): I50.9 - Heart failure, unspecified Is this a current diagnosis for this admission?: Yes Plan: 05/27/2018-continue his cardiac medications and gentle diuresis. He is on furosemide 40 mg once daily. This is a chronic issue for the patient and has been the source of multiple admissions. Continue other cardiac medications as well. May 28, 2018-the patient is comfortable. His hemoglobin is low. He is going to get a unit of packed red blood cells with 20 mg of Lasix following the transfusion. This should also help with his congestive failure. 05/29/2018-continue diuresis. Transfusion of 2 units of packed red blood cells was helpful. The patient does report feeling better. 05/30/2018-patient appears stable. Certainly no decline. Each day he seems to feel better. 05/31/2018-his current regimen including the fluid restriction has him stable. The edema would benefit from localized compression therapy. (3) Anemia due to chronic kidney disease Qualifiers: Chronic kidney disease stage: stage 3 (moderate) Qualified Code(s): N18.3 - Chronic kidney disease, stage 3 (moderate); D63.1 - Anemia in chronic kidney disease; D63.1 - Anemia in chronic kidney disease Is this a current diagnosis for this admission?: Yes Plan: 05/27/2018-the patient's hemoglobin has stayed above 8.0. Considering his failure and multiple core mobilities he would be a good candidate for transfusion if his hemoglobin drops below 8.0. May 28, 2018-as noted above his hemoglobin is less than 8.0 and he will receive 1 unit of packed red blood cells today. 05/29/18-a total of 2 units of packed red blood cells were given yesterday. 05/30/2018-hemoglobin is drifting down again. We will continue to monitor. Hopefully he will maintain above 8.0 after the 2 units of packed red blood cells. 05/31/2018-monitoring hemoglobin. He received 2 units of packed cells during this admission. Currently stable. (4) Obesity hypoventilation syndrome Is this a current diagnosis for this admission?: Yes Plan: The patient exhibits morbid obesity with a BMI of 41.8. This is a contributing factor to his chronic respiratory issues. No change in treatment plan at this time. (5) Opiate dependence, continuous Is this a current diagnosis for this admission?: Yes Plan: May 28, 2018-continue current regimen. No changes in the medications at this time. The patient does appear to have good pain control. 05/29/2018-because of consistent complaints of pain the analgesia was increased slightly. 05/30/2018-continue current analgesic regimen. 05/31/2018-patient appears comfortable. Consider decreasing his schedule. (6) Morbid obesity with BMI of 40.0-44.9, adult Is this a current diagnosis for this admission?: Yes Plan: May 28, 2018-continue current cardiac diet with controlled carbohydrates and low potassium. 05/31/2018-no change (7) Hyperkalemia Is this a current diagnosis for this admission?: Yes Plan: May 28, 2018-the patient's potassium is just above normal today. I am going to change him to a low potassium diet. This is likely a combination of diuresis and KELSEY inhibitor therapy along with his chronic kidney disease. A single dose should get him back into the normal range and a low potassium diet should keep him there. 05/29/2018-potassium is back in the normal range today. 05/30/2018-recheck labs tomorrow. 05/31/2018-serum potassium normal. Continue to monitor. - Time Time Spent with patient: 15-24 minutes Medications reviewed and adjusted accordingly: Yes
[2018-05-31] MEDS: ATORVASTATIN CALCIUM 40 MG TABLET PO SCH (22:31)
[2018-06-01] MEDS: OXYCODONE-ACETAMINOPHEN 5-325 MG TABLET PO PRN ×3 (00:07→12:23)
[2018-06-01] MEDS: FUROSEMIDE INJ/PF 40 MG/4 ML SDV IV SCH (09:15)
[2018-06-01] MEDS: APIXABAN 5 MG TABLET PO SCH (09:15)
[2018-06-01] MEDS: SERTRALINE HCL 50 MG TABLET PO SCH (09:15)
[2018-06-01] MEDS: FLUTICASONE/SALMETEROL DISKUS 250-50 MCG/DOSE IH SCH (09:15)
[2018-06-01] MEDS: CARVEDILOL 3.125 MG TABLET PO SCH (09:15)
[2018-06-01] MEDS: ASPIRIN 81 MG TABLET, ENT COATED PO SCH (09:15)
[2018-06-01] MEDS ORDERED: SACUBITRIL/VALSARTAN 24 MG/26 MG TABLET PO SCH (10:00)
--- NOTE | 2018-06-01 10:09 | PDOC TRANSFER SUMMARY ---
General - Admit/Disc Date/PCP Admission Date/Primary Care Provider: 05/20/18 02:37 MAURICE ORTIZ, Discharge Date: 06/01/18 - Discharge Diagnosis (1) Acute renal failure superimposed on stage 3 chronic kidney disease Is this a current diagnosis for this admission?: Yes Summary: Patient has a history of underlying stage III chronic kidney disease. At the time of his admission his GFR was estimated to be 26. He did tolerate diuresis for his congestive failure and his GFR is greater than 40 at this time. I believe some of this was helped by receiving 2 units of packed red blood cells. He appears back to his baseline at stage III. At discharge we will continue his current medication regimen. Suggest follow-up with nephrology. (2) CHF exacerbation Is this a current diagnosis for this admission?: Yes Summary: Patient has long history of heart disease. An echocardiogram in early April revealed an ejection fraction of approximately 35-40% with grade 2/4 diastolic dysfunction. The patient tolerated increased diuresis. This was likely helped with improvement of his anemia with 2 units of packed red blood cells. On this current regimen his breathing is much improved. I will continue this regimen at the time of transition to the long-term facility. See medication regimen below. Suggest follow-up with cardiology as an outpatient. (3) Anemia due to chronic kidney disease Is this a current diagnosis for this admission?: Yes Summary: Patient has history of anemia secondary to his chronic kidney disease as well as a contributory factor of his chronic illnesses. During his last admission he received 2 units of packed red blood cells. He was again transfused on this admission. His hemoglobin is currently above 8.0. He appears to be drifting down. Continue to monitor hemoglobin. Defer to nephrology regarding the use of erythropoietin analogs. (4) Obesity hypoventilation syndrome Is this a current diagnosis for this admission?: Yes Summary: This is a long-standing issue for the patient. His body mass index is 42.4 this increases when he is retaining fluid. He does use AVAPS at night and intermittently during the day when sleeping. He is also on Advair and this has been helping. He has been stable. He also wears continuous oxygen therapy. (5) Opiate dependence, continuous Is this a current diagnosis for this admission?: Yes Summary: The patient has chronic pain. This includes back pain in joints. Some of this is likely related to his obesity as well as osteoarthritic changes. We have tried not to increase his pain medication regimen. Weight loss would likely help but this is not likely a lifestyle change that this patient would accept or comply with. Close monitoring of opiate use is suggested. Might consider an appointment with pain management specialty. (6) Morbid obesity with BMI of 40.0-44.9, adult Is this a current diagnosis for this admission?: Yes Summary: As noted above he meets criteria for morbid obesity. Diet and lifestyle changes are not likely to occur with this patient. Exercise tolerance is significantly limited. Continue cardiac diet. (7) Hyperkalemia Is this a current diagnosis for this admission?: Yes Summary: The patient has been in balance with combination of diet and diuresis. His serum potassium has been in the normal range. Continue to monitor considering underlying chronic kidney disease and use of diuretic therapy. - Additional Information Resuscitation Status: Full Code Discharge Diet: Cardiac, Other (Comments) - Low potassium Discharge Activity: Activity As Tolerated, Balance Activity w/Rest Prescriptions: Furosemide [Lasix 40 mg Tablet] 40 mg PO BID #60 tablet Oxycodone HCl/Acetaminophen [Percocet 5-325 mg Tablet] 1 tab PO Q4HP PRN #10 tablet PRN Reason: Home Medications: Apixaban [Eliquis] 5 mg PO Q12 02/17/18 Atorvastatin Calcium [Lipitor 40 mg Tablet] 40 mg PO DAILY 02/17/18 Sertraline HCl [Zoloft 50 mg Tablet] 50 mg PO DAILY 02/17/18 Fluticasone/Salmeterol [Advair 250-50 Diskus 28 dose] 1 inh IH Q12H 03/06/18 Multivitamin [Multivitamins] 1 each PO DAILY 03/06/18 Acetaminophen [Tylenol 325 mg Tablet] 650 mg PO Q4HP PRN tablet 05/09/18 Albuterol Sulfate [Ventolin 0.083% Neb 2.5 mg/3 mL Ampul] 2.5 mg NEB RTQ3HP PRN vial.neb 05/09/18 Aspirin [Aspirin 81 mg Chewable Tablet] 81 mg PO DAILY tab.chew 05/09/18 Carvedilol [Coreg 3.125 mg Tablet] 3.125 mg PO Q12 #60 tablet 05/09/18 Docusate Sodium [Colace 100 mg Capsule] 100 mg PO BID capsule 05/09/18 Lisinopril [Prinivil 2.5 mg Tablet] 2.5 mg PO DAILY #30 tablet 05/09/18 Morphine Sulfate [Ms-Contin Sr 15 mg Tablet] 15 mg PO Q12A #30 tablet.sa Potassium Chloride [Klor-Con 10 Meq Capsule ER] 20 meq PO PC capsule.er Tiotropium [place] [Spiriva Handihaler 5 Cap/Kit (18 Mcg/Cap)] 1 cap IH DAILY kit 05/09/18 Acetaminophen [Tylenol 325 mg Tablet] 650 mg PO Q4HP PRN tablet 06/01/18 Aspirin [Ecotrin 81 mg EC Tablet] 81 mg PO DAILY tabec 06/01/18 Atorvastatin Calcium [Lipitor 40 mg Tablet] 40 mg PO QHS tablet 06/01/18 Furosemide [Lasix 40 mg Tablet] 40 mg PO BID #60 tablet 06/01/18 Oxycodone HCl/Acetaminophen [Percocet 5-325 mg Tablet] 1 tab PO Q4HP PRN #10 tablet 06/01/18 Sacubitril/Valsartan [Entresto 24 mg/26 mg Tablet] 1 tab PO Q12 tablet History of Present Illness Admission Date/PCP: 05/20/18 02:37 MAURICE ORITZ DO Patient complains of: Shortness of breath History of Present Illness: DANIEL OLIVA is a 72 year old male who is completing a 12-day hospitalization. He was recently hospitalized for a prolonged period prior to this admission. Patient has complex medical history of COPD, cardiac disease with congestive heart failure and depressed ejection fraction, morbid obesity and chronic pain. He presented with shortness of breath and edema. He has underlying chronic kidney disease as well. Multiple issues were addressed. He is on a more aggressive diuretic regimen. He received packed red blood cells for his significant anemia and this also help with oncotic pressure and perfusion. He is on AV APS when sleeping and continuous oxygen therapy at all other times. He still has ongoing lower extremity edema. This would likely benefit from chronic lymphedema therapy including multilayer compression wraps. He is currently stable and much improved. He would benefit from ongoing physical therapy as well as monitoring for his respiratory and cardiac status. Hospital Course Hospital Course: Patient had a long but fairly uncomplicated hospital course. The congestive heart failure improved with changes in his diuretic regimen as well as the transfusion of 2 units of packed red blood cells. Please see the medication list for current discharge medications. The renal failure return to baseline. This is despite more aggressive diuretic therapy. He is on a fluid restriction as well. This has helped to minimize fluid overload, utilize slightly less diuretic therapy and protect his sodium. His respiratory status has been stable with AVAPS when sleeping and continuous oxygen therapy while awake. He still remains significantly deconditioned and will benefit from ongoing therapy. From a cardiac standpoint he has had reasonable control of pulse rate and blood pressure. Multiple adjustments of his medication regimen took place during his hospitalization but he has been on a very stable regimen lately. Patient has stabilized and is transferring to a long-term facility. He will benefit in terms of close scrutiny of medication compliance, dietary compliance, monitoring of electrolytes and hemoglobin as well as kidney function as well as respiratory status with ongoing use of oxygen, Advair and Spiriva and AVAPS. Physical Exam Vital Signs: Temp Pulse Resp BP Pulse Ox 97.9 F 60 15 97/44 L 96 06/01/18 08:00 06/01/18 08:00 06/01/18 08:00 06/01/18 08:00 06/01/18 08:00 Intake & Output 05/31/18 06/01/18 06/02/18 06:59 06:59 06:59 Intake Total 177 577 Output Total 1150 450 Balance -973 127 Weight 134.6 kg 133.9 kg Results Laboratory Results: 05/31/18 04:50 05/31/18 04:50 05/20/18 05/20/18 05/20/18 07:25 07:25 13:21 Creatine Kinase 43 L 38 L CK-MB (CK-2) 1.52 Troponin I 0.033 NT-Pro-B Natriuret Pep 05/20/18 05/26/18 05/28/18 13:21 04:31 04:57 Creatine Kinase CK-MB (CK-2) 1.14 Troponin I 0.029 NT-Pro-B Natriuret Pep 4770 H 5230 H 05/31/18 04:50 Creatine Kinase CK-MB (CK-2) Troponin I NT-Pro-B Natriuret Pep 4280 H Impressions: Chest X-Ray 05/20/18 01:08 IMPRESSION: Cardiomegaly and CHF. Bibasilar pleural effusion and/or atelectasis and/or infiltrate, left side more apparent than right. 2010 [employer]- All Rights Reserved Transfer Plan - Disposition Transfer Plan: The patient will transfer to [facility] long-term and rehab. - Time Spent with Patient Time spent with patient: Greater than 30 Minutes Qualifiers - * PATIENT BEING DISCHARGED WITH ANY OF THE FOLLOWING DIAGNOSIS: Heart Failure HF Pt being discharged on ACEI for LVEF less than 40%?: Yes HF Pt being discharged on ARBS for LVEF less than 40%?: Yes HF Pt with Afib discharged with Warfarin?: No Reason(s) for not prescribing Warfarin:: Medical Contraindication - Currently on apixaban HF Pt discharged on evidence-based Beta Jacobo:: Yes Plan Discharge Plan: Transfer to long-term facility
[2018-06-01 12:22] VITALS: BP 104/52
== END 2018-06-01 14:27 | disposition short-term general hospital (02) | DRG 682 ==
LOC: ER 00:43 → EH 02:37 → 3W 05:21
PROVIDERS: ADMIT Internal Medicine; ATTEND Internal Medicine
PROC: 5A09457 Assistance with Respiratory Ventilation, 24-96 Consecutive Hours, Continuous Positive Airway Pressure (ICD-10-PCS; principal; 2018-05-20)
PROC: 30233N1 Transfusion of Nonautologous Red Blood Cells into Peripheral Vein, Percutaneous Approach (ICD-10-PCS; 2018-05-21)
PROC: 30233N1 Transfusion of Nonautologous Red Blood Cells into Peripheral Vein, Percutaneous Approach (ICD-10-PCS; 2018-05-28)
PROC: 3E02340 Introduction of Influenza Vaccine into Muscle, Percutaneous Approach (ICD-10-PCS; 2018-06-01)
DX: N17.9 Acute kidney failure, unspecified (principal); I50.43 Acute on chronic combined systolic (congestive) and diastolic (congestive) heart failure; J96.21 Acute and chronic respiratory failure with hypoxia; I13.0 Hypertensive heart and chronic kidney disease with heart failure and stage 1 through stage 4 chronic kidney disease, or unspecified chronic kidney disease; E66.2 Morbid (severe) obesity with alveolar hypoventilation; Z68.41 Body mass index [BMI] 40.0-44.9, adult; F11.20 Opioid dependence, uncomplicated; N18.4 Chronic kidney disease, stage 4 (severe); D63.1 Anemia in chronic kidney disease; E87.5 Hyperkalemia; J44.9 Chronic obstructive pulmonary disease, unspecified; G89.29 Other chronic pain; I48.91 Unspecified atrial fibrillation; E78.00 Pure hypercholesterolemia, unspecified; M19.90 Unspecified osteoarthritis, unspecified site; F32.9 Major depressive disorder, single episode, unspecified; I25.2 Old myocardial infarction; Z23 Encounter for immunization; Z79.899 Other long term (current) drug therapy; Z91.19 Patient's noncompliance with other medical treatment and regimen; Z91.14 Patient's other noncompliance with medication regimen; Z79.82 Long term (current) use of aspirin; Z86.711 Personal history of pulmonary embolism; Z95.1 Presence of aortocoronary bypass graft; Z95.5 Presence of coronary angioplasty implant and graft; Z95.810 Presence of automatic (implantable) cardiac defibrillator; Z87.891 Personal history of nicotine dependence; Z83.6 Family history of other diseases of the respiratory system; Z82.49 Family history of ischemic heart disease and other diseases of the circulatory system
CPT/HCPCS: 36415; 36430; 71045; 80048; 80053; 80069; 81001; 82550; 82553; 82962; 83735; 83880; 84484; 85025; 85027; 86850; 86900; 86901; 86920; 90686; 93005; 93010; 94660; 96374; 99285; G8978-GP; G8979-GP; J1756; J1940; J2310; J3490; J7050; P9016